=== PATIENT | male | born 1950 | race Caucasian/White ===

== ENCOUNTER → 2017-05-07 15:22 | Outpatient (CLI) | payer MEDICARE, SELFPAY ==
[2017-05-07 16:56] LABS: Allen Test POS; Base Excess 3 mmol/L (-2 to +2); Bicarbonate 28.2 mmol/L (22-26); Blood Gas Specimen Type ART; O2 Delivery Device Nasal Can; PO2 98 mmHG (75-100); SITE R Radial; SO2 98 % (95-99); Time Given 1535; Total Carbon Dioxide 30 mmol/L; pCO2 46.3 mmHg (35-45); pH 7.39 (7.35-7.45)
== END ==
PROVIDERS: Family Provider Internal Medicine; PCP Internal Medicine; Visit Provider Internal Medicine Pulmonary Disease
DX: G47.33 Obstructive sleep apnea (adult) (pediatric) (principal); J44.9 Chronic obstructive pulmonary disease, unspecified; R09.02 Hypoxemia
CPT/HCPCS: 82803

== ENCOUNTER → 2017-09-03 12:13 | Outpatient (CLI) | payer MEDICARE, SELFPAY ==
--- NOTE | 2017-09-03 12:16 | RAD_ITS ---
STUDY: X-RAY - PELVIS AND RIGHT HIP REASON FOR EXAM: Male, 67 years old. Right hip pain TECHNIQUE: Radiological exam, hip, unilateral, with pelvis when performed; 2 or 3 views. COMPARISON: None. FINDINGS: There is a non-specific bowel gas pattern. Vascular calcifications. Seminal vesicle calcifications. Degenerative changes of the sacroiliac joints and symphysis pubis. Normal bilateral superior and inferior pubic rami. Normal pubic symphysis. Normal bilateral ischial tuberosities. Normal visualized femoral head. Normal acetabulum. There is mild articular joint space narrowing of the hip. RAD/Hip 2-3 Views with Pelvis IMPRESSION: Degenerative changes of the sacroiliac joints and symphysis pubis. Mild degenerative changes of the right hip. Electronically Signed: Julieta Newman MD at 20:00 EDT , Service support ,
== END ==
PROVIDERS: Family Provider Internal Medicine; PCP Internal Medicine; Visit Provider Internal Medicine
DX: M25.551 Pain in right hip (principal)
CPT/HCPCS: 73502

== ENCOUNTER → 2017-11-25 12:17 | Outpatient (CLI) | payer MEDICARE, SELFPAY ==
--- NOTE | 2017-11-25 12:22 | RAD_ITS ---
STUDY: X-RAY - LUMBAR SPINE REASON FOR EXAM: Male, 67 years old. LBP, SCIATICA IN BILAT HIPS, NO RECENT INJURY TECHNIQUE: 5 view(s) of the lumbar spine were obtained. COMPARISON: None FINDINGS: Normal lumbar lordosis. There is multilevel endplate spondylosis of the lumbar vertebrae. There is multi-level degenerative disc disease with multi-level disc space narrowing. The soft tissue structures are unremarkable. RAD/Lumbar Spine 2 or 3 Views IMPRESSION: Degenerative changes of the spine. Electronically Signed: Faith Bazan MD at 8:59 EDT Tel , Service support ,
== END ==
PROVIDERS: Family Provider Internal Medicine; PCP Internal Medicine; Visit Provider Anesthesiology Pain Medicine
DX: M54.9 Dorsalgia, unspecified (principal)
CPT/HCPCS: 72100

== ENCOUNTER → 2018-02-17 08:05 | Outpatient (CLI) | payer MEDICARE, SELFPAY ==
--- NOTE | 2018-02-17 08:12 | RAD_ITS ---
STUDY: BARIUM ENEMA. REASON FOR EXAM: Male, 68 years old. Bright red blood in the stool. Abdominal pain. FLUOROSCOPY TIME (if supplied): (1:20) minutes/seconds. 15 images were obtained. TECHNIQUE: A contracts analyst film was obtained. Following this, barium was introduced retrograde through the rectum. The entire colon was opacified. COMPARISON: None. FINDINGS: There is extensive diverticulosis of the colon. There is no evidence of antegrade or retrograde obstruction to the flow of contrast. No mass lesion is seen. RAD/Barium Enema No Air Cont IMPRESSION: Extensive diverticulosis of the colon. Electronically Signed: Meek Perez MD at 15:05 EST Tel [phone], Service support ,
== END ==
PROVIDERS: Family Provider Internal Medicine; PCP Internal Medicine
DX: R19.5 Other fecal abnormalities (principal)
CPT/HCPCS: 74270

== ENCOUNTER 2018-02-23 06:28 | Emergency (ER) | payer MEDICARE, SELFPAY ==
[2018-02-23 06:29] VITALS: BP 122/60; PULSE 69; RESP 17; TEMP 36.4; O2SAT 99; BMI 48.4
--- NOTE | 2018-02-23 07:09 | CT_ITS ---
STUDY: CT BRAIN WITHOUT CONTRAST REASON FOR EXAM: Male, 68 years old. Fall, on Coumadin RADIATION DOSAGE (If Supplied By Facility): CTDIvol = ( 44.99 ) mGy, DLP = ( 796.11 ) mGycm TECHNIQUE: Transaxial CT imaging of the brain was performed without administration of intravenous contrast material. Individualized dose optimization techniques were used for this CT. COMPARISON: 01/06/2017 FINDINGS: Normal soft tissue structures. Normal calvarium. Bilateral lens replacements. Normal size ventricles and extra-axial spaces for the patient's age. There are areas of decreased attenuation within the white matter tracts of the supratentorial brain, consistent with microvascular disease changes. Age-related changes of the basal ganglia. Normal brainstem. Normal cerebellum. There is no intracranial hemorrhage. There are no findings of an acute ischemic infarction. Normal visualized paranasal sinuses. CT/Brain/Head without Contrast IMPRESSION: No fracture or hemorrhage. Electronically Signed: Eitan Woodson MD at 8:04 EST Tel , Service support ,
--- NOTE | 2018-02-23 07:10 | ED.VISSUMM ---
- ER Visit Summary Date of Service: 02/23/18 Chief Complaint: Head injury History of Present Illness: The patient is a 68 M history of end-stage renal disease gets dialysis. History of A. fib and hypertension currently on Coumadin. Today he was at dialysis. He went to take his coat off he lost his balance fell forward striking the top of his head on the floor. He states it is a hard tile floor. He denies any loss of consciousness. He denies any other injuries. Physical Examination: Older male. No acute distress. Vital signs are stable. He is afebrile. He is in no acute rest. H EENT exam is round reactive light. No facial trauma. Patient has a very minor contusion to the top of his anterior scalp. There is no laceration. No significant hematoma. Back of the scalp is nontender. C-spine nontender. Normal range of motion of his neck. Lungs clear to auscultation bilaterally. Heart irregularly irregular consistent with A. fib rate about 70. Chest wall nontender. Abdomen soft nontender. Pelvic girdle intact. Both patient's upper and lower extremities are nontender. With no deformities. 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 Normal dorsi plantar flexion. No shortening or external rotation of the lower extremities. Back is nontender. Neurologically he is awake and alert. Answering questions and following commands. Acting appropriately. GCS of 15. Test Results: Due to the patient being on Coumadin and hitting his head CT scan of the brain was done. CT scan of the brain without contrast shows no acute abnormality. No bleed or skull fracture. Emergency Department Course and Treatment: Multiple repeat exams patient is doing well. Neurologic exam remained normal. Treatment Plan: Patient be discharged back to the dialysis center to be dialyzed today. He was given close head injury instructions. Disposition: Discharge Impression: Acute close head injury Anticoagulated on Coumadin History of A. fib History of end-stage renal disease with dialysis This note was generated with [employer] dictation software. It may contain incorrect words, spelling, and punctuation that were not noted in review of the chart prior to signing ED Disposition - Plan for ED Patient: Disposition: Home or Assisted Living Chief Complaint: Head Injury Instructions: ED Head Injury Closed Referrals: Heraclio Whitehead MD [Primary Care Provider] - As Needed Additional Instructions: Tylenol for any pain. Ice to your head or you headache. Return if very severe headache, vomiting or trouble ambulating.
--- NOTE | 2018-02-23 07:13 | ED.DCSUM_ITS ---
- ER Visit Summary Date of Service: 02/23/18 Chief Complaint: Head injury History of Present Illness: The patient is a 68 M history of end-stage renal disease gets dialysis. History of A. fib and hypertension currently on Coumadin. Today he was at dialysis. He went to take his coat off he lost his balance fell forward striking the top of his head on the floor. He states it is a hard tile floor. He denies any loss of consciousness. He denies any other injuries. Physical Examination: Older male. No acute distress. Vital signs are stable. He is afebrile. He is in no acute rest. H EENT exam is round reactive light. No facial trauma. Patient has a very minor contusion to the top of his anterior scalp. There is no laceration. No significant hematoma. Back of the scalp is nontender. C-spine nontender. Normal range of motion of his neck. Lungs clear to auscultation bilaterally. Heart irregularly irregular consistent with A. fib rate about 70. Chest wall nontender. Abdomen soft nontender. Pelvic girdle intact. Both patient's upper and lower extremities are nontender. With no deformities. Normal manager neonatal strength bilaterally. Normal dorsi plantar flexion. No shortening or external rotation of the lower extremities. Back is nontender. Neurologically he is awake and alert. Answering questions and following commands. Acting appropriately. GCS of 15. Test Results: Due to the patient being on Coumadin and hitting his head CT scan of the brain was done. CT scan of the brain without contrast shows no acute abnormality. No bleed or skull fracture. Emergency Department Course and Treatment: Multiple repeat exams patient is doing well. Neurologic exam remained normal. Treatment Plan: Patient be discharged back to the dialysis center to be dialyzed today. He was given close head injury instructions. Disposition: Discharge Impression: Acute close head injury Anticoagulated on Coumadin History of A. fib History of end-stage renal disease with dialysis This note was generated with [employer] dictation software. It may contain incorrect words, spelling, and punctuation that were not noted in review of the chart prior to signing ED Disposition - Plan for ED Patient: Disposition: Home or Assisted Living Chief Complaint: Head Injury Instructions: ED Head Injury Closed Referrals: Heraclio Whitehead MD [Primary Care Provider] - As Needed Additional Instructions: Tylenol for any pain. Ice to your head or you headache. Return if very severe headache, vomiting or trouble ambulating.
[2018-02-23 08:44] VITALS: BP 124/75; PULSE 72; RESP 15; O2SAT 96
== END 2018-02-23 09:02 | disposition home or self-care (01) ==
PROVIDERS: Emergency Provider Emergency Medicine; Family Provider Internal Medicine; PCP Internal Medicine
DX: S00.03XA Contusion of scalp, initial encounter (principal); R40.2410 Glasgow coma scale score 13-15, unspecified time; W19.XXXA Unspecified fall, initial encounter; Y93.9 Activity, unspecified; Y92.9 Unspecified place or not applicable; Z79.01 Long term (current) use of anticoagulants; I48.91 Unspecified atrial fibrillation; I12.0 Hypertensive chronic kidney disease with stage 5 chronic kidney disease or end stage renal disease; N18.6 End stage renal disease; Z99.2 Dependence on renal dialysis; Z79.899 Other long term (current) drug therapy
CPT/HCPCS: 70450; 99283

== ENCOUNTER → 2018-05-12 09:58 | Outpatient (CLI) | payer MEDICARE, SELFPAY ==
[2018-05-12 09:11] VITALS: BMI 49.8
[2018-05-12 10:23] LABS: Absolute Lymphocyte Count 0.83 X10^3/ul (0.83-4.51); Absolute Neutrophil Count 3.1 X10^3/uL (2.0-7.7); Basophil# 0.03 X10^3/uL; Basophil% 0.6 % (0-1); Eosinophil# 0.32 X10^3/uL; Eosinophils% 6.9 % (0-5); Hematocrit 42.2 % (40-54); Hemoglobin 13.2 g/dl (13.0-16.5); Lymphocyte # 0.83 X10^3/ul (4.0); Lymphocyte % 17.8 % (19-41); Mean Corp Hgb Conc 31.3 g/gl (32-36); Mean Corpuscular Hgb 31.1 pg (27.0-32.0); Mean Corpuscular Volume 99.5 fL (80-94); Mean Platelet Vol. 10.3 fl (6.2-12.0); Monocyte# 0.34 X10^3/uL; Monocyte% 7.3 % (0-10); Neutrophil # 3.12 X10^3/uL (2.7-7.7); Neutrophil % 67.2 % (47-70); Platelet Count 106 K/mm3 (150-450); RBC Distribution Width SD 52.6 fl (35.1-43.9); Red Blood Count 4.24 M/mm3 (4.6-6.2); White Blood Count 4.7 K/mm3 (4.4-11.0)
[2018-05-12 10:25] LABS: POSITIVE COUNT NO; POSITIVE DIFFERENTIAL NO; POSITIVE MORPHOLOGY NO
[2018-05-12 10:49] LABS: Anion Gap 11 (5-15); BUN 49 mg/dL (7-18); BUN/Creat Ratio 8.9 RATIO (10-20); Calcium,Total 8.4 mg/dL (8.5-10.1); Chloride 95 mmol/L (98-107); Creatinine, Serum 5.51 mg/dL (0.70-1.30); EST Glomerular Filtration Rate 11 mL/min (>60); Est Glom Filt Rate - Afr Amer 13 mL/min (>60); Glucose 136 mg/dL (74-106); Sodium Level 136 mmol/L (136-145)
== END ==
PROVIDERS: Physician Assistant; Family Provider Internal Medicine; PCP Internal Medicine; Referring Provider Surgery; Visit Provider Surgery
DX: R79.1 Abnormal coagulation profile (principal); R57.9 Shock, unspecified
CPT/HCPCS: 36415; 80048; 85025

== ENCOUNTER 2018-05-26 08:18 | Day surgery (SDC) | payer MEDICARE, SELFPAY ==
[2018-05-12 09:11] VITALS: BMI 49.8
[2018-05-25 07:36] VITALS: BMI 49.7
[2018-05-26 08:41] LABS: Prothrombin Time Fingerstick 20.5 SEC (11.9-14.4)
--- NOTE | 2018-05-26 10:52 | PCM.OPRPT ---
Problem List (1) Problem with dialysis access Status: Acute Qualifiers: Encounter type: initial encounter Qualified Code(s): T82.898A - Other specified complication of vascular prosthetic devices, implants and grafts, initial encounter Report of Operation Date of Procedure: 05/26/18 Pre-Operative Diagnosis: Increased bleeding left forearm radial to cephalic hemodialysis fistula Post-Operative Diagnosis: Tortuosity with moderate stenosis proximal fistula. Excellent fistula outflow Surgery/Procedure Performed:: Left upper extremity fistulogram with 8 x 40 mm Powerflex angioplasty proximal fistula Description of Surgical Findings:: Timeout and informed consent was obtained. 60-year-old gentleman was taken to special procedures lab placed on the table. His left extremity sterilely prepped and draped. Ultrasound was used to identify the cephalic vein at the antecubital space. 2% lidocaine was instilled under ultrasound guidance. Micropuncture did was inserted and a micropuncture wire inserted a 6 Singaporean short sheath was inserted retrograde with flow. Initially I tried an angled Glidewire and a 4 Singaporean glide cath but I could not get access to the radial artery proximal to the anastomosis secondary to the tortuosity. I then switched to know 3 5 stiff Glidewire and with effort was able to find the pathway to the radial artery proximally anastomosis. I advanced the glide cath. Using Isovue contrast to fistulogram was obtained. This demonstrated significant tortuosity of the proximal portion of the fifth toe with overlapping vessels making determination difficult. His previous fish Elroy who suggested a moderate stenosis in this area. This is the patient's third fistulogram with the 2 previous histograms not having had intervention. The patient is having up to 1 hour of weight time to allow for bleeding to stop. So I placed a 8 x 40 mm Powerflex balloon and balloon angioplasty of the very tortuous proximal portion of the fissure was performed. There was a couple areas of hourglass wasting which then resolved with full insufflation. At the completion shot a study through the balloon and all areas appeared to be widely patent. I completed the fistulogram looking at the upper arm and chest outflow area. Sheath was removed few suture of 4-0 nylon was placed there was a good pulse thrill and bruit at the completion blood loss was minimal no apparent complication The patient has a left forearm radiocephalic arteriovenous hemodialysis fistula. There is tortuosity of the proximal portion of the fistula which seems improved subsequent to the angioplasty. There is good left upper arm cephalic and particularly basilic flow outflow. There is no evidence of any type of hemodynamic stenosis in the proximal forearm antecubital area upper arm or chest outflow area to explain bleeding. Impression Tortuous proximal fistula. Excellent mid fistula and upper arm venous outflow. No evidence of dynamically significant venous outflow stenosis. The patient is on Coumadin. It would be recommended consideration for recreation of buttonholes. I do not have a surgical technique to improve the bleeding situation. Aydin Royal M.D., F.A.C.S. Type of Anesthesia:: Local
== END 2018-05-26 12:00 ==
PROVIDERS: Family Provider Internal Medicine; PCP Internal Medicine; Referring Provider Surgery; Visit Provider Surgery
DX: T82.858A Stenosis of other vascular prosthetic devices, implants and grafts, initial encounter (principal); E11.22 Type 2 diabetes mellitus with diabetic chronic kidney disease; I13.2 Hypertensive heart and chronic kidney disease with heart failure and with stage 5 chronic kidney disease, or end stage renal disease; I50.32 Chronic diastolic (congestive) heart failure; N18.6 End stage renal disease; D63.1 Anemia in chronic kidney disease; Z99.2 Dependence on renal dialysis; I48.0 Paroxysmal atrial fibrillation; N02.8 Recurrent and persistent hematuria with other morphologic changes; J44.9 Chronic obstructive pulmonary disease, unspecified; I27.20 Pulmonary hypertension, unspecified; E78.5 Hyperlipidemia, unspecified; N40.0 Benign prostatic hyperplasia without lower urinary tract symptoms; F32.9 Major depressive disorder, single episode, unspecified; Z79.01 Long term (current) use of anticoagulants; Z79.899 Other long term (current) drug therapy; Z96.653 Presence of artificial knee joint, bilateral
CPT/HCPCS: 36416; 36902; 76937; 85610; Q9967; C1725; C1769

== ENCOUNTER 2018-08-18 08:07 | Emergency (ER) | payer MEDICARE, SELFPAY ==
[2018-08-18 08:07] VITALS: BP 107/66; PULSE 84; RESP 20; TEMP 36.5; O2SAT 94; BMI 49.8; BMI 51.6
--- NOTE | 2018-08-18 08:23 | ED.VISSUMM ---
- ER Visit Summary Date of Service: 08/18/18 Chief Complaint: Bleeding fistula and left lower leg pain/swelling History of Present Illness: The patient is a 68 M with history of end-stage renal disease on dialysis who presents for bleeding fistula. Patient removed his bandage from his fistula in his left forearm approximately 3 hours prior to presentation and it began spurting blood. Pressure dressing was placed at the facility. Patient is denying any dizziness or lightheadedness. He is also complaining of 2 days of lower leg pain, swelling and erythema. He states this is new and he is supposed to get an ultrasound to look for a blood clot today. Patient denies any chills or fever. No other complaints at this time. Physical Examination: Vital signs: afebrile, hemodynamically stable, no hypoxia on room air General: well nourished, well developed, in no distress Skin: warm, dry, no pallor; chronic skin changes in the bilateral lower extremities with skin darkening and thickening, left lower leg is also erythematous, warm, tender with mild pitting edema, extending from the proximal lower leg down to the foot. Circulation intact. HEENT: normocephalic and atraumatic; PERRL, EOMI, moist mucous membranes Cardiovascular: regular rate and rhythm Respiratory: No increased work of breathing, lungs are clear to auscultation bilaterally, no rales, rhonchi or wheezing Abdominal: Abdomen is soft, nontender with normoactive bowel sounds, no guarding or rebound, no masses MSK: Moves all extremities, amputations of the right toes, normal strength Neuro: Awake and alert, oriented ?4. No facial droop, sensation and motor function intact and symmetric Test Results: Abnormal Lab Results 08/18/18 08/18/18 08/18/18 08:30 08:30 08:30 WBC 6.7 RBC 3.80 L Hgb 11.7 L Hct 36.9 L MCV 97.1 H MCH 30.8 MCHC 31.7 L RDW 15.4 H RDW Differential 51.9 H Plt Count 102 L MPV 10.7 Immature Gran % (Auto) 0.100 Neut % (Auto) 68.0 Lymph % (Auto) 14.8 L [place] % (Auto) 10.4 H Eos % (Auto) 6.4 H Baso % (Auto) 0.3 Absolute Neuts (auto) 4.6 Absolute Lymphs (auto) 0.99 Total Counted Not Reportable PT 25.2 H INR 2.3 Sodium 135 L Potassium 4.1 Chloride 98 Carbon Dioxide 32.0 Anion Gap 5 BUN 66 H Creatinine 5.22 H Estim Creat Clear Calc 12.22 Est GFR (MDRD) Af Amer 14 L Est GFR (MDRD) Non-Af 12 L BUN/Creatinine Ratio 12.6 Glucose 127 H Hemoglobin A1c Calcium 8.9 Total Bilirubin 0.60 AST 18 ALT 21 Alkaline Phosphatase 134 H Total Protein 7.0 Albumin 2.8 L Globulin 4.2 Albumin/Globulin Ratio 0.7 L 08/18/18 08:30 WBC RBC Hgb Hct MCV MCH MCHC RDW RDW Differential Plt Count MPV Immature Gran % (Auto) Neut % (Auto) Lymph % (Auto) [place] % (Auto) Eos % (Auto) Baso % (Auto) Absolute Neuts (auto) Absolute Lymphs (auto) Total Counted PT INR Sodium Potassium Chloride Carbon Dioxide Anion Gap BUN Creatinine Estim Creat Clear Calc Est GFR (MDRD) Af Amer Est GFR (MDRD) Non-Af BUN/Creatinine Ratio Glucose Hemoglobin A1c 6.3 Calcium Total Bilirubin AST ALT Alkaline Phosphatase Total Protein Albumin Globulin Albumin/Globulin Ratio Medications Given Discontinued Medications Cephalexin (Keflex) 500 mg PO X1 ONE Stop: 08/18/18 09:31 Last Admin: 08/18/18 10:25 Dose: 500 mg Emergency Department Course and Treatment: senior living was contacted and they have an ultrasound scheduled this afternoon for the patient's left lower extremity. INR was checked since he is on Coumadin. If INR is therapeutic, it would be less likely to be a DVT. Ultrasound will not be performed in the emergency department, as it is already scheduled for this afternoon. Because blood is being drawn, CBC, CMP and hemoglobin A1c were also performed, as these have been ordered by his primary care doctor. INR was therapeutic. Patient had no leukocytosis. Patient was started on Keflex for concern for cellulitis of the left lower extremity. The bandaging was taken off of patient's fistula site and he did have spurting hemorrhage from a punctate site. Gelfoam was applied over the site of hemorrhage and a dressing was then applied. Patient was observed for 2 hours and the site of hemorrhage was reevaluated. There was no bleeding through the single layer of gauze covering the Gelfoam. Good hemostasis was achieved. Wrap was reapplied and patient was instructed not to remove it this time until he goes for his next dialysis treatment. Patient's fistula hemorrhage was resolved at this time. Patient was discharged back to his nursing facility. Again he will get his ultrasound of the left lower extremity is afternoon at the facility. Treatment Plan: [] Disposition: [] Impression: Cellulitis of left lower extremity, bleeding of a dialysis fistula, hemorrhage control This note was generated with [employer] dictation software. It may contain incorrect words, spelling, and punctuation that were not noted in review of the chart prior to signing ED Disposition - Plan for ED Patient: Disposition: Home or Assisted Living Instructions: ED Infec Skin Cellulitis, ED Shunt Dialysis Fistula Bleeding Prescriptions: Cephalexin [Keflex] 500 mg PO Q6 #40 cap Referrals: Heraclio Whitehead MD [Primary Care Provider] - 1 Day for another exam Additional Instructions: Your INR today was 2.3. The labs that your doctor had ordered were all drawn while you were in the emergency department. You have an ultrasound scheduled today to check your left leg for a blood clot. You have been started on Keflex for treatment of possible cellulitis. You were given a first dose in the emergency department. The bleeding from your fistula has been controlled with placement of Gelfoam and a dressing. Please do not remove the dressing until your dialysis appointment tomorrow. If you have any worsening of your condition or any new concerning symptoms, please return immediately to the emergency department for another evaluation.
[2018-08-18 08:37] LABS: Absolute Lymphocyte Count 0.99 X10^3/ul (0.83-4.51); Absolute Neutrophil Count 4.6 X10^3/uL (2.0-7.7); Basophil# 0.02 X10^3/uL; Basophil% 0.3 % (0-1); Eosinophil# 0.43 X10^3/uL; Eosinophils% 6.4 % (0-5); Hematocrit 36.9 % (40-54); Hemoglobin 11.7 g/dl (13.0-16.5); Lymphocyte # 0.99 X10^3/ul (4.0); Lymphocyte % 14.8 % (19-41); Mean Corp Hgb Conc 31.7 g/gl (32-36); Mean Corpuscular Hgb 30.8 pg (27.0-32.0); Mean Corpuscular Volume 97.1 fL (80-94); Mean Platelet Vol. 10.7 fl (6.2-12.0); Monocyte% 10.4 % (0-10); Neutrophil # 4.56 X10^3/uL (2.7-7.7); POSITIVE COUNT NO; POSITIVE DIFFERENTIAL NO; POSITIVE MORPHOLOGY NO; Platelet Count 102 K/mm3 (150-450); RBC Distribution Width CV 15.4 % (11.6-14.6); RBC Distribution Width SD 51.9 fl (35.1-43.9); White Blood Count 6.7 K/mm3 (4.4-11.0)
[2018-08-18 08:48] LABS: International Normalized Ratio 2.3; Prothrombin Time (Protime)PT. 25.2 SECONDS (11.7-14.9)
[2018-08-18 08:58] LABS: ALB/GLOB Ratio 0.7 RATIO (0.9-2.4); AST(SGOT) 18 U/L (15-37); Alanine Aminotransfer ALT/SGPT 21 U/L (16-61); Albumin, Serum 2.8 g/dL (3.2-5.0); Alkaline Phosphatase 134 U/L (45-117); Anion Gap 5 (5-15); BUN 66 mg/dL (7-18); BUN/Creat Ratio 12.6 RATIO (10-20); Calcium,Total 8.9 mg/dL (8.5-10.1); Chloride 98 mmol/L (98-107); Creatinine, Serum 5.22 mg/dL (0.70-1.30); EST Glomerular Filtration Rate 12 mL/min (>60); Est Glom Filt Rate - Afr Amer 14 mL/min (>60); Estimated Creatinine Clearance 12.22 ml/min; Globulin 4.2 g/dL (2.2-4.2); Glucose 127 mg/dL (74-106); Potassium 4.1 mmol/L (3.5-5.1); Sodium Level 135 mmol/L (136-145)
[2018-08-18 09:01] LABS: Hemoglobin A1c 6.3 % (4.2-6.3)
[2018-08-18] MEDS: Cephalexin 250 MG Capsule 500 MG PO (10:25)
--- NOTE | 2018-08-18 11:54 | ED.RN ---
pt had a dressing placed with gelfoam and cling. applied. wound rechecked and is not bleeding. pt given a meal and is waiting on transport to get him back to the skilled nursing.
[2018-08-18 12:55] VITALS: BP 102/74; PULSE 78; RESP 16; O2SAT 99
== END 2018-08-18 12:56 | disposition home or self-care (01) ==
PROVIDERS: Emergency Provider Emergency Medicine; Family Provider Internal Medicine; PCP Internal Medicine
DX: L03.116 Cellulitis of left lower limb (principal); T82.838A Hemorrhage due to vascular prosthetic devices, implants and grafts, initial encounter; N18.6 End stage renal disease; E66.9 Obesity, unspecified; Z79.01 Long term (current) use of anticoagulants; Z79.899 Other long term (current) drug therapy
CPT/HCPCS: 36415; 80053; 83036; 85025; 85610; 99284

== ENCOUNTER 2018-08-31 06:55 | Emergency (ER) | payer MEDICARE, SELFPAY ==
[2018-08-31 06:55] VITALS: BMI 51.6
[2018-08-31 06:56] VITALS: BP 155/60; PULSE 78; RESP 16; TEMP 36; O2SAT 94; BMI 54.9
--- NOTE | 2018-08-31 07:38 | ED.DCSUM_ITS ---
- ER Visit Summary Date of Service: 08/31/18 Chief Complaint: Bleeding fistula History of Present Illness: The patient is a 68 M who went to dialysis this morning. They pulled the dressing off of his forearm to start his line for dialysis and his arm started bleeding. He states he had trouble with bleeding last week but got it controlled. Physical Examination: Vital signs unremarkable. Patient lying in bed no acute distress. Left upper extremity examination reveals a tourniquet in place in the proximal left forearm with bloodsoaked trauma dressings over the forearm. There is still some active bleeding noted. Test Results: CBC reveals a hemoglobin 11.9 and platelet count of 142,000. Chemistry studies reveal a sodium of 129 and a chloride 93. His BUN is 98 and creatinine is 7.00. His INR is 1.9. Emergency Department Course and Treatment: Patient initially had a second tourniquet placed in the left upper arm with direct pressure held over the left fistula site. Bleeding was still difficult to control at this point. Dr. Royal, the surgeon who placed the patient's fistula is out of town this week and unavailable. I do not have any other vascular coverage here. I spoke with Dr. Lawrence at [facility] and patient has been accepted in transfer. He did advise that we needed to try to get the tourniquets removed as this would increase venous pressure and make his fistula bleeding worse. Distalmost tourniquet was removed and direct pressure was held over the wound. Upper extremity tourniquet was loosened but increased bleeding was noted and it was tightened again. Pressure dressing was being applied as [facility] crew arrived to transport the patient. I did discuss with them her desire to try to get tourniquets off if at all possible. Patient's vital signs remained stable throughout his stay. Treatment Plan: [] Disposition: Transfer Impression: Bleeding left forearm fistula This note was generated with [employer] dictation software. It may contain incorrect words, spelling, and punctuation that were not noted in review of the chart prior to signing ED Disposition - Plan for ED Patient: Disposition: [facility] Referrals: Heraclio Whitehead MD [Primary Care Provider] -
[2018-08-31 07:45] LABS: Absolute Lymphocyte Count 0.93 X10^3/ul (0.83-4.51); Absolute Neutrophil Count 4.6 X10^3/uL (2.0-7.7); Basophil# 0.02 X10^3/uL; Basophil% 0.3 % (0-1); Eosinophil# 0.35 X10^3/uL; Eosinophils% 5.7 % (0-5); Hemoglobin 11.9 g/dl (13.0-16.5); Lymphocyte # 0.93 X10^3/ul (4.0); Lymphocyte % 15.3 % (19-41); Mean Corp Hgb Conc 32.2 g/gl (32-36); Mean Corpuscular Volume 96.4 fL (80-94); Mean Platelet Vol. 11.1 fl (6.2-12.0); Monocyte# 0.19 X10^3/uL; Monocyte% 3.1 % (0-10); Neutrophil # 4.58 X10^3/uL (2.7-7.7); Neutrophil % 75.3 % (47-70); POSITIVE COUNT NO; POSITIVE DIFFERENTIAL NO; POSITIVE MORPHOLOGY NO; Platelet Count 142 K/mm3 (150-450); RBC Distribution Width CV 15.8 % (11.6-14.6); RBC Distribution Width SD 53.8 fl (35.1-43.9); Red Blood Count 3.84 M/mm3 (4.6-6.2); White Blood Count 6.1 K/mm3 (4.4-11.0)
[2018-08-31 07:53] LABS: International Normalized Ratio 1.9; Prothrombin Time (Protime)PT. 21.9 SECONDS (11.7-14.9)
[2018-08-31 07:54] LABS: Partial Thromboplast Time 40.5 Seconds (24.1-36.2)
[2018-08-31 07:55] LABS: Anion Gap 9 (5-15); BUN 98 mg/dL (7-18); Calcium,Total 9.1 mg/dL (8.5-10.1); Chloride 93 mmol/L (98-107); EST Glomerular Filtration Rate 8 mL/min (>60); Est Glom Filt Rate - Afr Amer 10 mL/min (>60); Estimated Creatinine Clearance 9.11 ml/min; Glucose 212 mg/dL (74-106); Potassium 4.8 mmol/L (3.5-5.1); Sodium Level 129 mmol/L (136-145)
[2018-08-31 08:02] VITALS: BP 102/64; PULSE 75; RESP 16; O2SAT 98
== END 2018-08-31 07:55 | disposition short-term general hospital (02) ==
PROVIDERS: Emergency Provider Emergency Medicine; Family Provider Internal Medicine; PCP Internal Medicine
DX: T82.838A Hemorrhage due to vascular prosthetic devices, implants and grafts, initial encounter (principal); J44.9 Chronic obstructive pulmonary disease, unspecified; E11.9 Type 2 diabetes mellitus without complications; I10 Essential (primary) hypertension; I48.0 Paroxysmal atrial fibrillation; Z79.01 Long term (current) use of anticoagulants; Z79.899 Other long term (current) drug therapy
CPT/HCPCS: 80048; 85025; 85610; 85730; 99285

== ENCOUNTER 2018-09-13 16:33 | Inpatient (IN) | payer MEDICARE, SELFPAY ==
[2018-09-13] VITALS (12 sets, daily range): BP systolic 75–110; BP diastolic 30–63; PULSE 71–78; RESP 14–21; TEMP 36.4; O2SAT 95–100; BMI 50.0; BMI 48.9
--- NOTE | 2018-09-13 17:21 | CT_ITS ---
STUDY: CT BRAIN WITHOUT CONTRAST REASON FOR EXAM: Male, 68 years old. Episode of blurry vision and confusion RADIATION DOSAGE (If Supplied By Facility): CTDIvol = ( 44.99 ) mGy, DLP = ( 846.73 ) mGycm TECHNIQUE: Transaxial CT imaging of the brain was performed without administration of intravenous contrast material. Individualized dose optimization techniques were used for this CT. COMPARISON: February 23, 2018. FINDINGS: Normal soft tissue structures. Normal calvarium. Calcification of the cavernous carotid and vertebral arteries Mild atrophy and periventricular white matter ischemic changes.. Normal basal ganglia and thalami. Normal brainstem. Normal cerebellum. Empty sella deformity likely of no significance There is no intracranial hemorrhage. There are no findings of an acute ischemic infarction. Postsurgical changes of the orbits. Normal visualized paranasal sinuses. CT/Brain/Head without Contrast IMPRESSION: Mild atrophy and periventricular white matter ischemic changes. No evidence for acute bleed. If concern for acute infarct MRI recommended. Electronically Signed: Freddy Decker MD at 18:54 EDT , Service support ,
--- NOTE | 2018-09-13 17:21 | EKG12_ITS ---
Test Reason : MENTAL STATUS CHANGE Blood Pressure : / mmHG Vent. Rate : 076 BPM Atrial Rate : 076 BPM P-R Int : 216 ms QRS Dur : 112 ms QT Int : 430 ms P-R-T Axes : 037 006 059 degrees QTc Int : 483 ms Sinus rhythm with 1st degree A-V block with frequent Premature ventricular complexes Low voltage QRS Prolonged QT Abnormal ECG Confirmed by LESLIE CORTES, ELLYN ([id number]), photographic editor TOSHIA CAPPS ([id number]) on 09/17/2018 11:48:33 AM Referred By: LUKAS Confirmed By:ELLYN NELSON MD
--- NOTE | 2018-09-13 17:25 | RAD_ITS ---
STUDY: X-RAY CHEST REASON FOR EXAM: Male, 68 years old. Confusion TECHNIQUE: AP portable COMPARISON: January 06, 2017. FINDINGS: Diminished inspiratory effort and mild bibasilar atelectasis. Small right pleural effusion. Heart is enlarged.. Normal mediastinum and tyron. Normal visualized pulmonary arteries. Normal visualized aortic arch and descending thoracic aorta. Dialysis catheter noted on the right with tip in distal superior vena cava Dorsal spine demonstrates spondylosis. Normal visualized ribs, clavicles, and shoulders. There is no demonstrated abnormality of the visualized soft tissue structures of the upper abdomen. RAD/Chest 1 View (Portable) IMPRESSION: Mild bibasilar atelectasis and small right effusion Electronically Signed: Freddy Decker MD at 17:56 EDT , Service support ,
[2018-09-13 17:39] LABS: Absolute Neutrophil Count 2.8 X10^3/uL (2.0-7.7); Basophil# 0.04 X10^3/uL; Basophil% 0.8 % (0-1); Eosinophil# 0.56 X10^3/uL; Eosinophils% 11.3 % (0-5); Hematocrit 31.4 % (40-54); Hemoglobin 9.7 g/dl (13.0-16.5); Lymphocyte % 24.3 % (19-41); Mean Corp Hgb Conc 30.9 g/gl (32-36); Mean Corpuscular Hgb 30.7 pg (27.0-32.0); Mean Corpuscular Volume 99.4 fL (80-94); Mean Platelet Vol. 10.2 fl (6.2-12.0); Monocyte# 0.34 X10^3/uL; Monocyte% 6.9 % (0-10); Neutrophil # 2.79 X10^3/uL (2.7-7.7); Neutrophil % 56.5 % (47-70); Platelet Count 201 K/mm3 (150-450); RBC Distribution Width CV 15.5 % (11.6-14.6); RBC Distribution Width SD 55.3 fl (35.1-43.9); Red Blood Count 3.16 M/mm3 (4.6-6.2); White Blood Count 4.9 K/mm3 (4.4-11.0)
[2018-09-13 17:41] LABS: POSITIVE COUNT NO; POSITIVE DIFFERENTIAL NO; POSITIVE MORPHOLOGY NO
[2018-09-13 18:26] LABS: ALB/GLOB Ratio 0.6 RATIO (0.9-2.4); AST(SGOT) 23 U/L (15-37); Alanine Aminotransfer ALT/SGPT 11 U/L (16-61); Albumin, Serum 2.9 g/dL (3.2-5.0); Alkaline Phosphatase 124 U/L (45-117); Anion Gap 6 (5-15); BUN 20 mg/dL (7-18); BUN/Creat Ratio 3.1 RATIO (10-20); Calcium,Total 9.4 mg/dL (8.5-10.1); Chloride 98 mmol/L (98-107); Creatinine, Serum 6.42 mg/dL (0.70-1.30); EST Glomerular Filtration Rate 9 mL/min (>60); Est Glom Filt Rate - Afr Amer 11 mL/min (>60); Estimated Creatinine Clearance 9.94 ml/min; Globulin 4.7 g/dL (2.2-4.2); Glucose 96 mg/dL (74-106); Potassium 3.5 mmol/L (3.5-5.1); Protein, Total 7.6 g/dL (6.4-8.2); Sodium Level 134 mmol/L (136-145)
[2018-09-13] MEDS: 0.9% Normal Saline 1,000 ML 150 ML IV (18:44)
[2018-09-13 18:52] LABS: International Normalized Ratio 1.7; Prothrombin Time (Protime)PT. 19.6 SECONDS (11.7-14.9)
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
--- NOTE | 2018-09-13 20:14 | ED.RN ---
called report to Wilian in ICU
--- NOTE | 2018-09-13 20:16 | ED.RN ---
spoke with nurse at [facility] to inform of admission to ICU
--- NOTE | 2018-09-13 20:37 | ECHOD_ITS ---
Reason For Study: hypotension Procedure This was a 2D Doppler, Color Flow transthoracic echocardiogram. The study was technically difficult. Technically difficult study due to patient body habitus. Patient was supine and leaning slightly to the right for testing. Patient would not lift chin for SSN Pedoff or 2D. Unable to use definity due to increased pressures. Exam performed portable in ICU/CCU. Left Ventricle Normal LV size. Left ventricular systolic function is normal. The estimated ejection fraction is 65 %. Stage 2 diastolic dysfunction. No regional wall motion abnormalities noted. Right Ventricle Moderately dilated right ventricle. Mild global right ventricular systolic dysfunction. Atria The left atrium is moderately enlarged. The right atrium is mildly enlarged. Mitral Valve There is mild mitral annular calcification. Mild (1+) eccentric mitral valve insufficiency. Tricuspid Valve Normal tricuspid valve. Mild (1+) tricuspid valve insufficiency. Pulmonary artery systolic pressure is 54 mmHg. Aortic Valve Trisinus/trileaflet aortic valve. Peak aortic valve gradient 24 mmHg. Mean aortic valve gradient 13 mmHg. Mild aortic stenosis. Calculated aortic valve area (continuity equation) is 1.5 cm2. Pulmonic Valve Normal pulmonic valve. Great Vessels Normal aortic root. The pulmonary artery is normal size. Normal inferior vena cava. Pericardium/Pleural No pericardial effusion. MMode/2D Measurements & Calculations LVIDd: 4.6 cm IVSd: 1.1 cm LVOT diam: 2.2 cm LVIDs: 3.3 cm LVPWd: 1.1 cm LVOT area: 3.7 cm2 RVDd: 4.8 cm FS: 28.5 % Ao root diam: 3.0 cm LAV(MOD-bp): 85.3 ml LA A4 area: 28.2 cm2 LAV(MOD-bp) Indexed: 35.5 ml/m2 LAV(MOD-sp2): 81.0 ml LAV(MOD-sp4): 88.0 ml LA dimension(2D): 4.9 cm RA A4 area: 21.2 cm2 Time Measurements MV dec time: 0.19 sec Doppler Measurements & Calculations MV E max juanito: 106.6 cm/sec Lat Peak E' Juanito: 13.6 cm/sec Med Peak E' Juanito: 4.8 cm/sec MV A max juanito: 87.0 cm/sec E/E' lat: 7.8 E/E' med: 22.3 MV E/A: 1.2 Ao V2 max: 243.3 cm/sec LV V1 max: 100.4 cm/sec SV(LVOT): 87.7 ml Ao max P.7 mmHg LV V1 max P.0 mmHg Ao V2 mean: 174.1 cm/sec LV V1 mean P.2 mmHg Ao mean P.2 mmHg LV V1 mean: 70.3 cm/sec Ao V2 VTI: 58.9 cm LV V1 VTI: 23.6 cm AVELINO(I,D): 1.5 cm2 AVELINO(V,D): 1.5 cm2 TR max juanito: 355.7 cm/sec TR max P.6 mmHg Interpretation Summary Normal LV size. Left ventricular systolic function is normal. The estimated ejection fraction is 65 %. Stage 2 diastolic dysfunction. Mild (1+) eccentric mitral valve insufficiency. Pulmonary artery systolic pressure is 54 mmHg. Mild aortic stenosis. Calculated aortic valve area (continuity equation) is 1.5 cm2. Compared to prior study, there is no significant change. Ordering Physician: Stew Aldrich Referring Physician: Heraclio Whitehead Performed By: Emma Avalos, CRISTIANO, RVT
[2018-09-13] MEDS: Nystatin Powder 15gm Bottle 1 APPLIC TOPICAL (21:39)
[2018-09-13] MEDS: Acetaminophen 325 MG Tablet 650 MG PO (21:39)
[2018-09-13] MEDS: Pramipexole Di-HCl 0.5 MG Tablet PO (21:39)
[2018-09-13] MEDS: Midodrine HCl 5 MG Tablet 10 MG PO (21:40)
[2018-09-13 21:51] LABS: Lactic Acid 0.9 mmol/L (0.4-2.0)
[2018-09-13] MEDS: Cholestyramine/Sucrose 4 GM/PACKET PO (22:50)
[2018-09-14] VITALS (22 sets, daily range): BP systolic 82–129; BP diastolic 21–76; PULSE 61–76; RESP 12–21; TEMP 36.2–36.8; O2SAT 94–100
[2018-09-14 04:08] LABS: Hematocrit 28.3 % (40-54); Hemoglobin 8.7 g/dl (13.0-16.5); Mean Corp Hgb Conc 30.7 g/gl (32-36); Mean Corpuscular Hgb 30.7 pg (27.0-32.0); Mean Platelet Vol. 9.5 fl (6.2-12.0); Platelet Count 174 K/mm3 (150-450); RBC Distribution Width CV 15.3 % (11.6-14.6); RBC Distribution Width SD 54.8 fl (35.1-43.9); Red Blood Count 2.83 M/mm3 (4.6-6.2); White Blood Count 4.7 K/mm3 (4.4-11.0)
[2018-09-14 04:12] LABS: Scan Indicated on CBC? Y/N NO
[2018-09-14 04:21] LABS: BUN 23 mg/dL (7-18); BUN/Creat Ratio 3.3 RATIO (10-20); Calcium,Total 8.8 mg/dL (8.5-10.1); Creatinine, Serum 6.88 mg/dL (0.70-1.30); EST Glomerular Filtration Rate 9 mL/min (>60); Est Glom Filt Rate - Afr Amer 10 mL/min (>60); Estimated Creatinine Clearance 9.27 ml/min; Glucose 94 mg/dL (74-106)
[2018-09-14 04:22] LABS: Anion Gap 8 (5-15); Chloride 100 mmol/L (98-107); Potassium 3.4 mmol/L (3.5-5.1); Sodium Level 137 mmol/L (136-145)
[2018-09-14 04:30] LABS: Prothrombin Time (Protime)PT. 22.3 SECONDS (11.7-14.9)
[2018-09-14] MEDS: Budesonide Respules 0.5 MG/2 ML AMPUL.NEB. INHALATION ×2 (06:52→19:30)
[2018-09-14] MEDS: Ipratropium/Albuterol Sulfate 3 ML AMPUL.NEB INHALATION ×2 (06:52→19:30)
--- NOTE | 2018-09-14 08:01 | CON.PCM_ITS ---
Problem List (1) Acute encephalopathy Status: Acute (2) Diarrhea Status: Resolved Qualifiers: Diarrhea type: presumed infectious Qualified Code(s): A09 - Infectious gastroenteritis and colitis, unspecified (3) ESRD (end stage renal disease) on dialysis Status: Chronic (4) Benign hypertension Status: Chronic (5) BPH (benign prostatic hyperplasia) Status: Chronic Qualifiers: Lower urinary tract symptom presence: symptoms present Lower urinary tract symptom detail: urinary hesitancy Qualified Code(s): N40.1 - Benign prostatic hyperplasia with lower urinary tract symptoms; R39.11 - Hesitancy of micturition; R39.11 - Hesitancy of micturition (6) Depression Status: Chronic (7) Hyperlipidemia Status: Chronic Qualifiers: Hyperlipidemia type: pure hypercholesterolemia Qualified Code(s): E78.00 - Pure hypercholesterolemia, unspecified; E78.0 - Pure hypercholesterolemia (8) IgA nephropathy Status: Chronic (9) Chronic gout Status: Chronic (10) Diabetes mellitus, type 2 Status: Chronic Qualifiers: 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: with intermediate use Diabetes mellitus complication status: with kidney complications Diabetes mellitus complication detail: with chronic kidney disease Chronic kidney disease stage: on chronic dialysis Qualified Code(s): E11.22 - Type 2 diabetes mellitus with diabetic chronic kidney disease; N18.6 - End stage renal disease; Z99.2 - Dependence on renal dialysis; Z99.2 - Dependence on renal dialysis; Z99.2 - Dependence on renal dialysis; N18.6 - End stage renal disease; N18.6 - End stage renal disease; N18.6 - End stage renal disease; Z79.4 - [facility] (current) use of insulin; Z79.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; Z79.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; Z79.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; Z99.2 - Dependence on renal dialysis Comment: DIET CONTROLLED (11) Fatty liver Status: Chronic (12) KATHY on CPAP Status: Chronic 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 (13) COPD (chronic obstructive pulmonary disease) Status: Chronic Qualifiers: COPD type: unspecified COPD Qualified Code(s): J44.9 - Chronic obstructive pulmonary disease, unspecified Comment: With chronic respiratory failure On 3 L nasal cannula (14) Left kidney mass Status: Chronic (15) Pulmonary hypertension Status: Chronic (16) Paroxysmal atrial fibrillation Status: Chronic (17) Anemia of chronic renal failure Status: Chronic Qualifiers: Chronic kidney disease stage: stage 5 Qualified Code(s): N18.5 - Chronic kidney disease, stage 5; D63.1 - Anemia in chronic kidney disease; D63.1 - Anemia in chronic kidney disease (18) Diabetes mellitus with skin complications Status: Inactive Qualifiers: Diabetes mellitus type: type 2 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: with intermediate use Diabetes mellitus complication detail: with other skin complication Qualified Code(s): E11.628 - Type 2 diabetes mellitus with other skin complications; Z79.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; Z79.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; Z79.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; Z79.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 Comment: E11.628 complex necrotic diabetic ulcer abscess left long fingertip (19) Unspecified severe protein-calorie malnutrition Status: Inactive Comment: E43 Reason for Consult Date of Consultation: 09/14/18 Reason for Consultation: Hypotension History of Present Illness: The patient is a 68 year old M, with past medical history listed below, who presented [facility] on 09/13/2018 secondary to a change of mental status at approximately 11 AM. Patient reportedly ran his power wheelchair into a wall and staff noted that he was disoriented and confused. Patient had reported generalized weakness and a sensation of being drunk. Patient denied any chest pain or shortness of breath. Patient did have a history of diabetes, but reportedly glucose was at within normal limits. Patient had had a cough productive of green sputum intermittently, but this was not thought to be infectious. Patient did not have any clinical signs of blood loss. Patient reportedly had tolerated his last hemodialysis without difficulty. On presentation to the ER, patient was noted to be in a first-degree AV block with a rate of 76. CBC and chemistries were unremarkable. Patient was given 500 cc bolus of IV fluids secondary to systolic blood pressures in the 80s. Patient was admitted to the intensive care unit for further evaluation. In the intensive care unit, patient was not initiated on any antibiotics. Patient does take management at baseline. Patient's blood pressure was marginal overnight and he was given a 250 cc bolus of fluids. Patient's blood pressures continued to be marginal. Patient was given an additional dose of monitoring overnight. Patient has been stable on baseline 2 L nasal cannula and has not reported any concerns from a respiratory standpoint. Patient reports that he feels back to his baseline at this time. Patient does report some knee tenderness, which he states is normal for him and some increased shoulder stiffness. Patient denies any lower extremity pain, fever, chills, nausea or vomiting. Patient reports that he is tolerated his hemodialysis recently without difficulty. This is not been confirmed with nephrology. Patient does have a history of multiple infections in the past. Patient does not feel that this is consistent with those previous problems. Patient is scheduled to have hemodialysis routinely on Friday, Friday and Friday. Patient is on Coumadin therapy at baseline. Review of systems otherwise negative x10 systems. Past Medical History Past Medical History (Chronic Problems): Chronic Problems (Last Reviewed 09/13/18 @ 20:17 by Stew Aldrich MD) ESRD (end stage renal disease) on dialysis (Chronic) C. difficile diarrhea (Chronic) Benign hypertension (Chronic) BPH (benign prostatic hyperplasia) (Chronic) Depression (Chronic) Hyperlipidemia (Chronic) IgA nephropathy (Chronic) Chronic gout (Chronic) Diabetes mellitus, type 2 (Chronic) DIET CONTROLLED Diastolic Dysfunction EF 60% (Chronic) Fatty liver (Chronic) KATHY on CPAP (Chronic) 16 CM WATER COPD (chronic obstructive pulmonary disease) (Chronic) With chronic respiratory failure On 3 L nasal cannula Left kidney mass (Chronic) Super obesity (Chronic) bmi 64 Chronic low back pain (Chronic) Pulmonary hypertension (Chronic) Paroxysmal atrial fibrillation (Chronic) Anemia of chronic renal failure (Chronic) Hyperkalemia (Chronic) Falls frequently (Chronic) Medical History: Medical History (Last Reviewed 09/13/18 @ 20:17 by Stew Aldrich MD) ESRD (end stage renal disease) on dialysis (Chronic) N18.6, Z99.2 C. difficile diarrhea (Chronic) A04.7 Hemorrhage of arteriovenous fistula (Resolved) T82.838A Benign hypertension (Chronic) I10 BPH (benign prostatic hyperplasia) (Chronic) Depression (Chronic) F32.9 Hyperlipidemia (Chronic) E78.5 IgA nephropathy (Chronic) N02.8 Chronic gout (Chronic) [id number] Diabetes mellitus, type 2 (Chronic) E11.9 DIET CONTROLLED Diastolic Dysfunction EF 60% (Chronic) COPD (chronic obstructive pulmonary disease) (Chronic) J44.9 With chronic respiratory failure On 3 L nasal cannula Left kidney mass (Chronic) N28.89 Chronic low back pain (Chronic) M54.5, G89.29 Pulmonary hypertension (Chronic) I27.2 Paroxysmal atrial fibrillation (Chronic) I48.0 Vertebral osteomyelitis, acute (Inactive) M46.20 12/22/14 24 hours no growth. 12/21/14 1/2 cultures w/ staph aureus. Suspected source vertebral osteomyelitis, unable to confirm as unable to obtain GOLD standard MRI secondary to habitus. Rhabdomyolysis (Inactive) M62.82 Unclear exact etiology, resolved. Osteomyelitis (Inactive) M86.9 distal phalanx of the middle finger on the left hand Anemia of chronic renal failure (Chronic) N18.9, D63.1 Atrial fibrillation I48.91 Allergies mirtazapine [From Remeron] Allergy (Verified 09/13/18 16:40) forgetful, doesn't remember anything Sulfa (Sulfonamide Antibiotics) Allergy (Verified 09/13/18 16:40) bleeding from kidneys aspirin Adverse Reaction (Verified 09/13/18 16:40) Nausea oxycodone HCl [From Percodan] Adverse Reaction (Verified 09/13/18 16:40) Nausea oxycodone terephthalate [From Percodan] Adverse Reaction (Verified 09/13/18 16:40) Nausea Home Medications: Ambulatory Orders Medication Instructions Recorded Nystatin Powder [Mycostatin Powder] 1 applic TOPICAL BID bottle 10/19/16 Calcium Acetate [Phoslo Gel Cap] 1,334 mg PO TIDCM 11/08/16 Cholestyramine (with Sugar) 4 gm PO BID 01/06/17 [Cholestyramine Packet] Warfarin [Coumadin] 2 mg PO SUMOWEFR 01/06/17 Warfarin [Coumadin] 3 mg PO TUTHSA 01/06/17 ferrous sulfate 325 mg (65 mg 325 mg PO BID tab 05/12/18 iron) tablet,delayed release umeclidinium 62.5 mcg/actuation 1 inh INHALATION DAILY 05/12/18 blister powder for inhalation Acetaminophen [Tylenol Tablet] 650 mg PO Q4H PRN PRN 08/18/18 Acetaminophen [Tylenol] 650 mg RECTAL Q4H PRN PRN 08/18/18 Albuterol Aerosols [Ventolin 2.5 mg INHALATION Q4H PRN PRN 08/18/18 Aerosols] B Complex W-C No.20/Folic Acid 1 mg PO DAILY 08/18/18 [Virt-Caps Softgel] Bisacodyl [Laxative Suppository] 10 mg RC DAILY PRN PRN 08/18/18 Dextrose [Glucose Gel] 38 gm PO PRN PRN 08/18/18 Docusate Sodium [Colace] 100 mg PO DAILY 08/18/18 Escitalopram Oxalate [Lexapro] 10 mg PO DAILY 08/18/18 Fluticasone/Vilanterol [Breo 1 each IH DAILY 08/18/18 Ellipta Inhaler] Gabapentin [Neurontin] 300 mg PO DAILY 08/18/18 Glucagon,Human Recombinant 1 mg IJ PRN PRN 08/18/18 [Glucagon Emergency Kit] Guaifenesin [Robitussin] 10 ml PO Q4H PRN PRN 08/18/18 Loperamide HCl [Imodium A-D] 2 mg PO Q6H PRN PRN 08/18/18 Mag Hydrox/Aluminum Hyd/Simeth 30 ml PO Q4H PRN PRN 08/18/18 [Antacid Liquid] Magnesium Hydroxide [Milk Of 30 ml PO DAILY PRN PRN 08/18/18 Magnesia] Metoprolol Tartrate [Lopressor 12.5 mg PO SUTUTHSA 08/18/18 (beta alex)] Midodrine HCl 10 mg PO MOWEFR 08/18/18 Na Phos,M-B/Na Phos,Di-Ba [Fleet 1 bottle RECTAL DAILY PRN PRN 08/18/18 Enema] Ondansetron HCl [Zofran] 4 mg PO Q6H PRN PRN 08/18/18 Pantoprazole Sodium [Protonix] 40 mg PO DAILY 08/18/18 Pramipexole Di-HCl [Mirapex] 0.5 mg PO QHS 08/18/18 Surgical History: Surgical History (Last Reviewed 09/13/18 @ 20:12 by Stew Aldrich MD) History of arteriovenostomy for renal dialysis Z99.2 History of cholecystectomy Z90.49 History of colonoscopy Z98.890 History of total bilateral knee replacement Z96.653 Status post biopsy of kidney Z98.890 Surgical History: colectomy, total knee arthroplasty - Bilateral, - - LLA Fistula Psychiatric History: No pertinent psych hx Lives: Prison Smoking Status: Never smoker Alcohol: Occasional - *Family History Maternal History Items: COPD, Diabetes, Heart Disease, Hypertension - He, Pulmonary Disease, Renal Disease Paternal History Items: No pertinent history Review of Systems Comment: See HPI Patient Problems: Active and Suspected Problems (Last Reviewed 09/13/18 @ 20:17 by Stew Aldrich MD) Acute encephalopathy (Acute) Hypotension (Acute) Objective: Chest x-ray showed mild bibasilar atelectasis with a small right effusion. This does not appear to be significantly different from previous examinations. - Physical Exam General: Alert, Oriented x3, Cooperative, No apparent distress, - - Appears older than stated age. Morbidly obese. HEENT: Atraumatic, PERRLA, EOMI, Normocephalic, - - No scleral icterus or injection noted. Oral: Moist Mucosa, No Gingival or Mucosal Lesions/ Ulcerations Neck: Supple, No JVD, No Nodes, Trachea Midline Lungs: No rhonchi, No wheeze, No rales, Diminished, - - Symmetric expansion. No dullness to percussion. Cardiovascular: Regular rate, Regular Rhythm, Normal S1, Normal S2, No murmurs, No rub noted, No Gallop Abdomen: Bowel Sounds Present, Soft, Non Tender, Non-Distended, Obese Extremities: No clubbing, No cyanosis, Edema - Lateral lower extremities. Skin: No rashes, No breakdown Musculoskeletal: No Tenderness to Palpation of Joints or Extremities Lymphatic: No Cervical, Supraclavicular, or Inguinal Adenopathy Neurological: Cranial nerves II-XII grossly intact, Neuro grossly intact, Motor Exam 5/5 strength throughout Psych/Mental Status: Alert and oriented to time, place, person, mood and affect Vital Signs Temp Pulse Resp BP Pulse Ox 36.2 C L 65 17 90/46 L 97 09/14/18 04:00 09/14/18 07:00 09/14/18 07:00 09/14/18 07:00 09/14/18 07:00 Oxygen Flow Rate (L/min) 3 Oxygen Delivery Method Nasal Cannula Weight: 138.4 kg Body Mass Index (BMI) 48.9 Finger Stick Blood Glucose 68 Intake and Output for Last 24 Hours 07/08/2609/13/18 09/14/18 23:59 23:59 23:59 Intake Total 990 / 990 Balance 990 / 990 Laboratory Tests Past 24 Hrs 09/13/18 09/13/18 09/13/18 16:52 16:52 16:52 WBC 4.9 RBC 3.16 L Hgb 9.7 L Hct 31.4 L MCV 99.4 H MCH 30.7 MCHC 30.9 L RDW 15.5 H RDW Differential 55.3 H Plt Count 201 MPV 10.2 Immature Gran % (Auto) 0.200 Neut % (Auto) 56.5 Lymph % (Auto) 24.3 [place] % (Auto) 6.9 Eos % (Auto) 11.3 H Baso % (Auto) 0.8 Absolute Neuts (auto) 2.8 Absolute Lymphs (auto) 1.20 Total Counted Not Reportable PT Cancelled INR Cancelled Sodium Cancelled Potassium Cancelled Chloride Cancelled Carbon Dioxide Cancelled Anion Gap Cancelled BUN Cancelled Creatinine Cancelled Estim Creat Clear Calc Cancelled Est GFR (MDRD) Af Amer Cancelled Est GFR (MDRD) Non-Af Cancelled BUN/Creatinine Ratio Cancelled Glucose Cancelled Lactic Acid Calcium Cancelled Total Bilirubin Cancelled AST Cancelled ALT Cancelled Alkaline Phosphatase Cancelled Troponin I Cancelled Total Protein Cancelled Albumin Cancelled Globulin Cancelled Albumin/Globulin Ratio Cancelled Vitamin B12 09/13/18 09/13/18 09/13/18 16:52 17:55 17:55 WBC RBC Hgb Hct MCV MCH MCHC RDW RDW Differential Plt Count MPV Immature Gran % (Auto) Neut % (Auto) Lymph % (Auto) [place] % (Auto) Eos % (Auto) Baso % (Auto) Absolute Neuts (auto) Absolute Lymphs (auto) Total Counted PT 19.6 H INR 1.7 Sodium 134 L Potassium 3.5 Chloride 98 Carbon Dioxide 30.0 Anion Gap 6 BUN 20 H Creatinine 6.42 H Estim Creat Clear Calc 9.94 Est GFR (MDRD) Af Amer 11 L Est GFR (MDRD) Non-Af 9 L BUN/Creatinine Ratio 3.1 L Glucose 96 Lactic Acid Calcium 9.4 Total Bilirubin 0.40 AST 23 ALT 11 L Alkaline Phosphatase 124 H Troponin I 0.019 Total Protein 7.6 Albumin 2.9 L Globulin 4.7 H Albumin/Globulin Ratio 0.6 L Vitamin B12 Pending 09/13/18 09/14/18 09/14/18 21:05 04:00 04:00 WBC 4.7 RBC 2.83 L Hgb 8.7 L Hct 28.3 L MCV 100.0 H MCH 30.7 MCHC 30.7 L RDW 15.3 H RDW Differential 54.8 H Plt Count 174 MPV 9.5 Immature Gran % (Auto) Neut % (Auto) Lymph % (Auto) [place] % (Auto) Eos % (Auto) Baso % (Auto) Absolute Neuts (auto) Absolute Lymphs (auto) Total Counted PT Cancelled INR Cancelled Sodium Potassium Chloride Carbon Dioxide Anion Gap BUN Creatinine Estim Creat Clear Calc Est GFR (MDRD) Af Amer Est GFR (MDRD) Non-Af BUN/Creatinine Ratio Glucose Lactic Acid 0.9 Calcium Total Bilirubin AST ALT Alkaline Phosphatase Troponin I Total Protein Albumin Globulin Albumin/Globulin Ratio Vitamin B12 09/14/18 09/14/18 04:00 04:15 WBC RBC Hgb Hct MCV MCH MCHC RDW RDW Differential Plt Count MPV Immature Gran % (Auto) Neut % (Auto) Lymph % (Auto) [place] % (Auto) Eos % (Auto) Baso % (Auto) Absolute Neuts (auto) Absolute Lymphs (auto) Total Counted PT 22.3 H INR 2.0 Sodium 137 Potassium 3.4 L Chloride 100 Carbon Dioxide 29.0 Anion Gap 8 BUN 23 H Creatinine 6.88 H Estim Creat Clear Calc 9.27 Est GFR (MDRD) Af Amer 10 L Est GFR (MDRD) Non-Af 9 L BUN/Creatinine Ratio 3.3 L Glucose 94 Lactic Acid Calcium 8.8 Total Bilirubin AST ALT Alkaline Phosphatase Troponin I Total Protein Albumin Globulin Albumin/Globulin Ratio Vitamin B12 Clinical Impression(s) from Imaging Studies Brain CT 09/13/18 17:21 IMPRESSION: Mild atrophy and periventricular white matter ischemic changes. No evidence for acute bleed. If concern for acute infarct MRI recommended. Electronically Signed: Freddy Decker MD at 18:54 EDT , Service support , Chest X-Ray 09/13/18 17:25 IMPRESSION: Mild bibasilar atelectasis and small right effusion Electronically Signed: Freddy Decker MD at 17:56 EDT , Service support , Assessment/Plan Active and Suspected Problems (Last Reviewed 09/13/18 @ 20:17 by Stew Aldrich MD) Acute encephalopathy (Acute) Hypotension (Acute) RECOMMENDATIONS: 1. Transition midodrine to daily 2. Hemodialysis today 3. Await echocardiogram, trend troponins 4. Therapeutic substitution for COPD inhaler 5. Wean oxygen as tolerated IMPRESSIONS: 1. Acute encephalopathy secondary to hypotension Exact etiology is unclear at this time. Patient has had some low diastolic pressures and is on midodrine at baseline. Patient does have an echocardiogram currently pending, but no troponins have been obtained. No significant EKG changes are appreciated. Patient does not have any fevers, leukocytosis or rashes to suggest infectious etiology at this time. Antibiotics will be initiated if patient develops any of the symptoms. Patient is on beta- blockers at baseline secondary to A. fib, but rate appears to be appropriate at this time. 2. End-stage renal disease Today is a routine hemodialysis day. Nephrology has been consulted. Continue with dietary modification and Nephrocaps as indicated. Monitor patient in intensive care for hemodialysis. If tolerates well, patient can likely be transferred from the intensive care. 3. Paroxysmal A. fib Patient appears to be in a sinus rhythm at this time. Patient's Coumadin is therapeutic at this time. Patient does take metoprolol at baseline, but this is been held secondary to #1. 4. COPD/morbid obesity/restless legs/multiple allergies/poor historian Complicates care, management, recovery and prognosis. Patient does not appear to be in an acute exacerbation of COPD at this time. Therapeutic substitution would be appropriate. Wean oxygen as tolerated. Code Visit Inpatient E&M: 61607 Init Hosp L3
--- NOTE | 2018-09-14 09:35 | CASEMGMT ---
SW participated in ICU rounds, confirmed w/pt is here from [facility]. 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 CLARA faxed updates to [facility], will continue to follow. REYNA Kirk
[2018-09-14] MEDS: Docusate Sodium 100 MG Capsule PO (09:44)
[2018-09-14] MEDS: Pantoprazole Sodium 40 MG Tablet PO (09:44)
[2018-09-14] MEDS: Calcium Acetate 667 MG Capsule 1334 MG PO ×3 (09:44→20:14)
[2018-09-14] MEDS: Escitalopram Oxalate 10 MG Tablet PO (09:44)
[2018-09-14] MEDS: Gabapentin 300 MG Capsule PO (09:44)
[2018-09-14] MEDS: Folic Acid/Vitamin B Comp W-C 1 Capsule 1 CAP PO (09:45)
[2018-09-14] MEDS: Ferrous Sulfate 325 MG Tablet PO ×2 (09:45→20:14)
[2018-09-14] MEDS: Nystatin Powder 15gm Bottle 1 APPLIC TOPICAL ×2 (09:45→21:07)
[2018-09-14] MEDS: Midodrine HCl 5 MG Tablet 10 MG PO (09:45)
[2018-09-14] MEDS: Cholestyramine/Sucrose 4 GM/PACKET PO ×2 (09:46→21:07)
[2018-09-14 09:50] LABS: Vitamin B12 1114 pg/mL (211-911)
--- NOTE | 2018-09-14 11:21 | PCM.CONS.R ---
Problem List (1) ESRD (end stage renal disease) on dialysis Status: Chronic Consultation - Renal 09/14/18 PCP/ Referring MD: Requesting physician: Dr Aldrich Primary care physician: Heraclio Whitehead MD Reason for Consultation:: ESRD - History of Present Illness History of Present Illness: The patient is a 68 year old M well-known to us. Known history of end-stage renal disease on hemodialysis Friday, Friday, Friday schedule. Last dialysis was Friday last week. Apparently he was fairly confused at the [facility] and was sent in. Found to have significant hypotension. Received IV fluids yesterday. Mental status is back to baseline today. Blood pressure is better with systolic around 110 right now. He usually runs on the lower side with systolic between 70-80. No signs of sepsis. Lactate normal. White count normal. Fever negative. He had a pseudoaneurysm rupture of AV fistula recently. Has a right IJ tunneled dialysis catheter. - Allergies Allergies: Allergies mirtazapine [From Remeron] Allergy (Verified 09/13/18 16:40) forgetful, doesn't remember anything Sulfa (Sulfonamide Antibiotics) Allergy (Verified 09/13/18 16:40) bleeding from kidneys aspirin Adverse Reaction (Verified 09/13/18 16:40) Nausea oxycodone HCl [From Percodan] Adverse Reaction (Verified 09/13/18 16:40) Nausea oxycodone terephthalate [From Percodan] Adverse Reaction (Verified 09/13/18 16:40) Nausea - Current Medications Current Medications: Current Medications Acetaminophen (Tylenol) 650 mg PO Q6H PRN PRN PRN Reason: Mild pain 1-3/Temp > 100.7 F Last Admin: 09/13/18 21:39 Dose: 650 mg Documented by: Al Hydroxide/Mg Hydroxide (Mylanta Ii) 30 ml PO Q4H PRN PRN PRN Reason: INDEGESTION Albuterol Sulfate (Ventolin Aerosols) 2.5 mg INHALATION Q2H PRN PRN Reason: sob/wheezing Albuterol/Ipratropium (Duoneb) 3 ml INHALATION Q6HWA.RT [facility] Last Admin: 09/14/18 06:52 Dose: 3 ml Documented by: Bisacodyl (Dulcolax) 10 mg RECTAL DAILY PRN PRN PRN Reason: Constipation Budesonide (Pulmicort Aerosol) 0.5 mg INHALATION Q12H.RT [facility] Last Admin: 09/14/18 06:52 Dose: 0.5 mg Documented by: Calcium Acetate (Phoslo Gel Cap) 1,334 mg PO TIDCM [facility] Last Admin: 09/14/18 09:44 Dose: 1,334 mg Documented by: Cholestyramine Resin (Questran 4gm Packet) 4 gm PO BID [facility] Last Admin: 09/14/18 09:46 Dose: 4 gm Documented by: Dextrose (D50w Syringe) 0 gm IV X1 PRN; Protocol PRN Reason: Hypoglycemia Docusate Sodium (Colace) 100 mg PO DAILY [facility] Last Admin: 09/14/18 09:44 Dose: 100 mg Documented by: Escitalopram Oxalate (Lexapro) 10 mg PO DAILY [facility] Last Admin: 09/14/18 09:44 Dose: 10 mg Documented by: Ferrous Sulf[facility] ([facility] S[facility]) [facility] Last Admin: 09/14/18 09:45 Dose: 325 mg Documented by: Gabapentin (Neurontin) 300 mg PO DAILY [facility] Last Admin: 09/14/18 09:44 Dose: 300 mg Documented by: Glucagon () 1 mg IM .X1 PRN PRN Reason: Hypoglycemia Guaifenesin (Robitussin) 10 ml PO Q4H PRN PRN PRN Reason: COUGH Sodium Chloride () 250 mls @ 15 mls/hr IV .[id number] PRN PRN Reason: SALINE FLUSH Loperamide HCl (Imodium) 2 mg PO Q6H PRN PRN PRN Reason: Diarrhea Magnesium Hydroxide (Milk Of Magnesia) 30 ml PO DAILY PRN PRN PRN Reason: Constipation Melatonin (Melatonin) 3 mg PO QHS PRN PRN PRN Reason: INSOMNIA Midodrine (Proamatine) 10 mg PO MoWeFr@1000 [facility] Last Admin: 09/14/18 09:45 Dose: 10 mg Documented by: Multivit/Ca Carb/B Cmplx/FA/Prenat (Nephrocaps, Renaphro) [facility] Last Admin: 09/14/18 09:45 Dose: 1 capsule Documented by: Nystatin (Mycostatin Powder) 1 applic TOPICAL BID [facility]; Protocol Last Admin: 09/14/18 09:45 Dose: 1 applicatio Documented by: Ondansetron HCl (Zofran) 4 mg IV Q8H PRN PRN PRN Reason: NAUSEA/VOMITING Ondansetron HCl (Zofran Odt) 4 mg PO Q6H PRN PRN PRN Reason: NAUSEA Pantoprazole Sodium (Protonix) 40 mg PO DAILY [facility] Last Admin: 09/14/18 09:44 Dose: 40 mg Documented by: Pramipexole Dihydrochloride (Mirapex) 0.5 mg PO QHS [facility] Last Admin: 09/13/18 21:39 Dose: 0.5 mg Documented by: Sodium Biphosphate/Sodium Phosphate (Fleet Enema) 1 bottle RECTAL DAILY PRN PRN PRN Reason: Constipation Sodium Chloride () 10 - 40 ml IV UD PRN PRN Reason: SALINE FLUSH Warfarin Sodium (Coumadin (Pbkc)) 2 mg PO SuMoWeFr@1700 [facility] Warfarin Sodium (Coumadin (Pbkc)) 3 mg PO TuThSa@1700 [facility] - Past Medical History Past Medical History (Chronic Problems): Chronic Problems (Last Reviewed 09/13/18 @ 20:17 by Stew Aldrich MD) ESRD (end stage renal disease) on dialysis (Chronic) C. difficile diarrhea (Chronic) Benign hypertension (Chronic) BPH (benign prostatic hyperplasia) (Chronic) Depression (Chronic) Hyperlipidemia (Chronic) IgA nephropathy (Chronic) Chronic gout (Chronic) Diabetes mellitus, type 2 (Chronic) DIET CONTROLLED Diastolic Dysfunction EF 60% (Chronic) Fatty liver (Chronic) KATHY on CPAP (Chronic) 16 CM WATER COPD (chronic obstructive pulmonary disease) (Chronic) With chronic respiratory failure On 3 L nasal cannula Left kidney mass (Chronic) Super obesity (Chronic) bmi 64 Chronic low back pain (Chronic) Pulmonary hypertension (Chronic) Paroxysmal atrial fibrillation (Chronic) Anemia of chronic renal failure (Chronic) Hyperkalemia (Chronic) Falls frequently (Chronic) - Past Surgical History Surgical History: colectomy, total knee arthroplasty - Bilateral, - - LLA Fistula - Social History Smoking Status: Never smoker Alcohol: Occasional - Family History Maternal History Items: COPD, Diabetes, Heart Disease, Hypertension - He, Pulmonary Disease, Renal Disease Paternal History Items: No pertinent history Review of Systems Constitutional: Denies: Chills, Fever, Weight Change HEENT: Denies: Head Aches, Sinus Congestion, Sinus Drainage Cardiovascular: Denies: Chest Pain, Palpitations Respiratory: Denies: Cough, Shortness of breath at rest, Sputum production Gastrointestinal: Denies: Abdominal Pain, Nausea, Vomiting Genitourinary: Denies: Dysuria Musculoskeletal: Denies: Joint Pain, Joint Tenderness Skin: Denies: Rash, Wounds Neurological: Denies: Numbness, Tingling, Focal weakness Psychiatric: Denies: Anxiety, Depression, Homicidal Ideations, Suicidal Ideations Hematologic/ Lymphatic: Denies: Easy Bruising, Easy Bleeding Patient Problems: Active and Suspected Problems (Last Reviewed 09/13/18 @ 20:17 by Stew Aldrich MD) Acute encephalopathy (Acute) Hypotension (Acute) - Physical Exam General: Alert, Oriented x3, Cooperative HEENT: Atraumatic, PERRLA, EOMI, Normocephalic Neck: Supple, No JVD, Negative Carotid Bruits Lungs: Clear to auscultation, Normal air movement Cardiovascular: Regular rate, No murmurs Abdomen: Bowel Sounds Present, Soft, Non Tender Extremities: No edema, Capillary Refill Less than 3 Seconds Skin: No rashes, No breakdown Musculoskeletal: No Tenderness to Palpation of Joints or Extremities Neurological: Cranial nerves II-XII grossly intact Psych/Mental Status: Normal Affect, Appropriate Vital Signs Temp Pulse Resp BP Pulse Ox 97.4 F L 66 14 104/48 L 98 09/14/18 08:00 09/14/18 11:00 09/14/18 11:00 09/14/18 11:00 09/14/18 11:00 Oxygen Flow Rate (L/min) 2 Oxygen Delivery Method Nasal Cannula Weight: 138.4 kg Body Mass Index (BMI) 48.9 Finger Stick Blood Glucose 68 Intake and Output for Last 24 Hours 09/12/18 09/13/18 09/14/18 23:59 23:59 23:59 Intake Total 990 / 990 Balance 990 / 990 Laboratory Tests Past 24 Hrs 09/13/18 09/13/18 09/13/18 16:52 16:52 16:52 WBC 4.9 RBC 3.16 L Hgb 9.7 L Hct 31.4 L MCV 99.4 H MCH 30.7 MCHC 30.9 L RDW 15.5 H RDW Differential 55.3 H Plt Count 201 MPV 10.2 Immature Gran % (Auto) 0.200 Neut % (Auto) 56.5 Lymph % (Auto) 24.3 [place] % (Auto) 6.9 Eos % (Auto) 11.3 H Baso % (Auto) 0.8 Absolute Neuts (auto) 2.8 Absolute Lymphs (auto) 1.20 Total Counted Not Reportable PT Cancelled INR Cancelled Sodium Cancelled Potassium Cancelled Chloride Cancelled Carbon Dioxide Cancelled Anion Gap Cancelled BUN Cancelled Creatinine Cancelled Estim Creat Clear Calc Cancelled Est GFR (MDRD) Af Amer Cancelled Est GFR (MDRD) Non-Af Cancelled BUN/Creatinine Ratio Cancelled Glucose Cancelled Lactic Acid Calcium Cancelled Total Bilirubin Cancelled AST Cancelled ALT Cancelled Alkaline Phosphatase Cancelled Troponin I Cancelled Total Protein Cancelled Albumin Cancelled Globulin Cancelled Albumin/Globulin Ratio Cancelled Vitamin B12 09/13/18 09/13/18 09/13/18 16:52 17:55 17:55 WBC RBC Hgb Hct MCV MCH MCHC RDW RDW Differential Plt Count MPV Immature Gran % (Auto) Neut % (Auto) Lymph % (Auto) [place] % (Auto) Eos % (Auto) Baso % (Auto) Absolute Neuts (auto) Absolute Lymphs (auto) Total Counted PT 19.6 H INR 1.7 Sodium 134 L Potassium 3.5 Chloride 98 Carbon Dioxide 30.0 Anion Gap 6 BUN 20 H Creatinine 6.42 H Estim Creat Clear Calc 9.94 Est GFR (MDRD) Af Amer 11 L Est GFR (MDRD) Non-Af 9 L BUN/Creatinine Ratio 3.1 L Glucose 96 Lactic Acid Calcium 9.4 Total Bilirubin 0.40 AST 23 ALT 11 L Alkaline Phosphatase 124 H Troponin I 0.019 Total Protein 7.6 Albumin 2.9 L Globulin 4.7 H Albumin/Globulin Ratio 0.6 L Vitamin B12 1114 H 09/13/18 09/14/18 09/14/18 21:05 04:00 04:00 WBC 4.7 RBC 2.83 L Hgb 8.7 L Hct 28.3 L MCV 100.0 H MCH 30.7 MCHC 30.7 L RDW 15.3 H RDW Differential 54.8 H Plt Count 174 MPV 9.5 Immature Gran % (Auto) Neut % (Auto) Lymph % (Auto) [place] % (Auto) Eos % (Auto) Baso % (Auto) Absolute Neuts (auto) Absolute Lymphs (auto) Total Counted PT Cancelled INR Cancelled Sodium Potassium Chloride Carbon Dioxide Anion Gap BUN Creatinine Estim Creat Clear Calc Est GFR (MDRD) Af Amer Est GFR (MDRD) Non-Af BUN/Creatinine Ratio Glucose Lactic Acid 0.9 Calcium Total Bilirubin AST ALT Alkaline Phosphatase Troponin I Total Protein Albumin Globulin Albumin/Globulin Ratio Vitamin B12 09/14/18 09/14/18 04:00 04:15 WBC RBC Hgb Hct MCV MCH MCHC RDW RDW Differential Plt Count MPV Immature Gran % (Auto) Neut % (Auto) Lymph % (Auto) [place] % (Auto) Eos % (Auto) Baso % (Auto) Absolute Neuts (auto) Absolute Lymphs (auto) Total Counted PT 22.3 H INR 2.0 Sodium 137 Potassium 3.4 L Chloride 100 Carbon Dioxide 29.0 Anion Gap 8 BUN 23 H Creatinine 6.88 H Estim Creat Clear Calc 9.27 Est GFR (MDRD) Af Amer 10 L Est GFR (MDRD) Non-Af 9 L BUN/Creatinine Ratio 3.3 L Glucose 94 Lactic Acid Calcium 8.8 Total Bilirubin AST ALT Alkaline Phosphatase Troponin I Total Protein Albumin Globulin Albumin/Globulin Ratio Vitamin B12 Assessment/Plan All Active Problems (Last Reviewed 09/13/18 @ 20:17 by Stew Aldrich MD) Problem with dialysis access (Acute) Acute encephalopathy (Acute) Hypotension (Acute) Shock (Acute) Acute respiratory failure (Acute) Diarrhea (Resolved) Hemorrhage of arteriovenous fistula (Resolved) Finger necrosis (Resolved) Yeast dermatitis (Acute) Enterococcal bacteremia (Resolved) ESRD. Hemodialysis to be arranged today. Hypotension. Chronic hypotension. Usually requires Midodrine with dialysis. Asymptomatic right now. Blood pressure is acceptable. Anemia. Hemoglobin is acceptable. Access. Right IJ tunneled dialysis catheter. Left arm AV fistula site looks okay.
--- NOTE | 2018-09-14 12:02 | CASEMGMT ---
LW/POA from 2010 in [facility], CLARA printed and placed on paper chart. Carmelina Mac is listed as POA, Sharon and Don as alternates. Pt had indicated on admission his sister Chantale is POA however. SW called [facility], the forms they have on file are the same as we have here at the hospital. SW attempted to speak w/pt about POA forms, he is sleeping soundly. SW will follow up again as time allows. REYNA Kirk
--- NOTE | 2018-09-14 12:24 | PN_ITS ---
Patient Problems: Active and Suspected Problems (Last Reviewed 09/13/18 @ 20:17 by Stew Aldrich MD) Acute encephalopathy (Acute) Hypotension (Acute) Subjective: Denies any complaints at this time. No further hypotensive episodes. Vitals/I&O's: Vital Signs Temp Pulse Resp BP Pulse Ox 36.3 C L 66 14 104/48 L 98 09/14/18 08:00 09/14/18 11:00 09/14/18 11:00 09/14/18 11:00 09/14/18 11:00 Oxygen Flow Rate (L/min) 2 Oxygen Delivery Method Nasal Cannula Weight: 138.4 kg Body Mass Index (BMI) 48.9 Finger Stick Blood Glucose 68 Intake and Output for Last 24 Hours 09/12/18 09/13/18 09/14/18 23:59 23:59 23:59 Intake Total 1230 / 1230 Balance 1230 / 1230 General: Alert, No apparent distress HEENT: Atraumatic, Normocephalic Oral: Moist Mucosa, No Gingival or Mucosal Lesions/ Ulcerations Neck: No Nodes, Thyroid Normal Size and Texture Lungs: Clear to auscultation, Normal air movement, No rhonchi, No wheeze, No rales Cardiovascular: Regular rate, Regular Rhythm, Normal S1, Normal S2, No murmurs Abdomen: Bowel Sounds Present, Soft, Non Tender, Non-Distended, No Hepato- splenomegaly Extremities: No edema, No Calf Tenderness Psych/Mental Status: Normal Affect, Appropriate Laboratory Results 09/13/18 16:52: WBC 4.9, RBC 3.16 L, Hgb 9.7 L, Hct 31.4 L, MCV 99.4 H, MCH 30.7, MCHC 30.9 L, RDW 15.5 H, RDW Differential 55.3 H, Plt Count 201, MPV 10.2, Immature Gran % (Auto) 0.200, Neut % (Auto) 56.5, Lymph % (Auto) 24.3, [place] % (Auto) 6.9, Eos % (Auto) 11.3 H, Baso % (Auto) 0.8, Absolute Neuts (auto) 2.8, Absolute Lymphs (auto) 1.20, Total Counted Not Reportable 09/13/18 16:52: PT Cancelled, INR Cancelled 09/13/18 16:52: Sodium Cancelled, Potassium Cancelled, Chloride Cancelled, Carbon Dioxide Cancelled, Anion Gap Cancelled, BUN Cancelled, Creatinine Cancelled, Estim Creat Clear Calc Cancelled, Est GFR (MDRD) Af Amer Cancelled, Est GFR (MDRD) Non-Af Cancelled, BUN/Creatinine Ratio Cancelled, Glucose Cancelled, Calcium Cancelled, Total Bilirubin Cancelled, AST Cancelled, ALT Cancelled, Alkaline Phosphatase Cancelled, Troponin I Cancelled, Total Protein Cancelled, Albumin Cancelled, Globulin Cancelled, Albumin/Globulin Ratio Cancelled 09/13/18 16:52: Vitamin B12 1114 H 09/13/18 17:55: Sodium 134 L, Potassium 3.5, Chloride 98, Carbon Dioxide 30.0, Anion Gap 6, BUN 20 H, Creatinine 6.42 H, Estim Creat Clear Calc 9.94, Est GFR (MDRD) Af Amer 11 L, Est GFR (MDRD) Non-Af 9 L, BUN/Creatinine Ratio 3.1 L, Glucose 96, Calcium 9.4, Total Bilirubin 0.40, AST 23, ALT 11 L, Alkaline Phosphatase 124 H, Troponin I 0.019, Total Protein 7.6, Albumin 2.9 L, Globulin 4.7 H, Albumin/Globulin Ratio 0.6 L 09/13/18 17:55: PT 19.6 H, INR 1.7 09/13/18 21:05: Lactic Acid 0.9 09/14/18 04:00: PT Cancelled, INR Cancelled 09/14/18 04:00: WBC 4.7, RBC 2.83 L, Hgb 8.7 L, Hct 28.3 L, MCV 100.0 H, MCH 30.7, MCHC 30.7 L, RDW 15.3 H, RDW Differential 54.8 H, Plt Count 174, MPV 9.5 09/14/18 04:00: Sodium 137, Potassium 3.4 L, Chloride 100, Carbon Dioxide 29.0, Anion Gap 8, BUN 23 H, Creatinine 6.88 H, Estim Creat Clear Calc 9.27, Est GFR (MDRD) Af Amer 10 L, Est GFR (MDRD) Non-Af 9 L, BUN/Creatinine Ratio 3.3 L, Glucose 94, Calcium 8.8 09/14/18 04:15: PT 22.3 H, INR 2.0 Current Medications Acetaminophen (Tylenol) 650 mg PO Q6H PRN PRN PRN Reason: Mild pain 1-3/Temp > 100.7 F Last Admin: 09/13/18 21:39 Dose: 650 mg Documented by: Al Hydroxide/Mg Hydroxide (Mylanta Ii) 30 ml PO Q4H PRN PRN PRN Reason: INDEGESTION Albuterol Sulfate (Ventolin Aerosols) 2.5 mg INHALATION Q2H PRN PRN Reason: sob/wheezing Albuterol/Ipratropium (Duoneb) 3 ml INHALATION Q6HWA.RT COUNTS INCLUDE 234 BEDS AT THE [facility] Last Admin: 09/14/18 06:52 Dose: 3 ml Documented by: Bisacodyl (Dulcolax) 10 mg RECTAL DAILY PRN PRN PRN Reason: Constipation Budesonide (Pulmicort Aerosol) 0.5 mg INHALATION Q12H.RT COUNTS INCLUDE 234 BEDS AT THE [facility] Last Admin: 09/14/18 06:52 Dose: 0.5 mg Documented by: Calcium Acetate (Phoslo Gel Cap) 1,334 mg PO TIDCM COUNTS INCLUDE 234 BEDS AT THE [facility] Last Admin: 09/14/18 09:44 Dose: 1,334 mg Documented by: Cholestyramine Resin (Questran 4gm Packet) 4 gm PO BID COUNTS INCLUDE 234 BEDS AT THE [facility] Last Admin: 09/14/18 09:46 Dose: 4 gm Documented by: Dextrose (D50w Syringe) 0 gm IV X1 PRN; Protocol PRN Reason: Hypoglycemia Docusate Sodium (Colace) 100 mg PO DAILY COUNTS INCLUDE 234 BEDS AT THE [facility] Last Admin: 09/14/18 09:44 Dose: 100 mg Documented by: Escitalopram Oxalate (Lexapro) 10 mg PO DAILY [facility]S INCLUDE 234 BEDS AT THE [facility] Last Admin: 09/14/18 09:44 Dose: 10 mg Documented by: Ferrous Sulfate (Ferrous Sulfate) 325 mg PO BIDCM COUNTS INCLUDE 234 BEDS AT THE [facility] Last Admin: 09/14/18 09:45 Dose: 325 mg Documented by: Gabapentin (Neurontin) 300 mg PO DAILY COUNTS INCLUDE 234 BEDS AT THE [facility] Last Admin: 09/14/18 09:44 Dose: 300 mg Documented by: Glucagon () 1 mg IM .X1 PRN PRN Reason: Hypoglycemia Guaifenesin (Robitussin) 10 ml PO Q4H PRN PRN PRN Reason: COUGH Sodium Chloride () 250 mls @ 15 mls/hr IV .[id number] PRN PRN Reason: SALINE FLUSH Loperamide HCl (Imodium) 2 mg PO Q6H PRN PRN PRN Reason: Diarrhea Magnesium Hydroxide (Milk Of Magnesia) 30 ml PO DAILY PRN PRN PRN Reason: Constipation Melatonin (Melatonin) 3 mg PO QHS PRN PRN PRN Reason: INSOMNIA Midodrine (Proamatine) 10 mg PO MoWeFr@1000 COUNTS INCLUDE 234 BEDS AT THE [facility] Last Admin: 09/14/18 09:45 Dose: 10 mg Documented by: Multivit/Ca Carb/B Cmplx/FA/Prenat (Nephrocaps, Renaphro) 1 capsule PO DAILYCM COUNTS INCLUDE 234 BEDS AT THE [facility] Last Admin: 09/14/18 09:45 Dose: 1 capsule Documented by: Nystatin (Mycostatin Powder) 1 applic TOPICAL BID COUNTS INCLUDE 234 BEDS AT THE [facility]; Protocol Last Admin: 09/14/18 09:45 Dose: 1 applicatio Documented by: Ondansetron HCl (Zofran) 4 mg IV Q8H PRN PRN PRN Reason: NAUSEA/VOMITING Ondansetron HCl (Zofran Odt) 4 mg PO Q6H PRN PRN PRN Reason: NAUSEA Pantoprazole Sodium (Protonix) 40 mg PO DAILY COUNTS INCLUDE 234 BEDS AT THE [facility] Last Admin: 09/14/18 09:44 Dose: 40 mg Documented by: Pramipexole Dihydrochloride (Mirapex) 0.5 mg PO QHS COUNTS INCLUDE 234 BEDS AT THE [facility] Last Admin: 09/13/18 21:39 Dose: 0.5 mg Documented by: Sodium Biphosphate/Sodium Phosphate (Fleet Enema) 1 bottle RECTAL DAILY PRN PRN PRN Reason: Constipation Sodium Chloride () 10 - 40 ml IV UD PRN PRN Reason: SALINE FLUSH Warfarin Sodium (Coumadin (Pbkc)) 2 mg PO SuMoWeFr@1700 COUNTS INCLUDE 234 BEDS AT THE [facility] Warfarin Sodium (Coumadin (Pbkc)) 3 mg PO TuThSa@1700 COUNTS INCLUDE 234 BEDS AT THE [facility] Medical Necessity - Tobacco Use Smoking Status: Never smoker Assessment/Plan All Active Problems (Last Reviewed 09/13/18 @ 20:17 by Stew Aldrich MD) Problem with dialysis access (Acute) Acute encephalopathy (Acute) Hypotension (Acute) Shock (Acute) Acute respiratory failure (Acute) Diarrhea (Resolved) Hemorrhage of arteriovenous fistula (Resolved) Finger necrosis (Resolved) Yeast dermatitis (Acute) Enterococcal bacteremia (Resolved) 1. Hypotension * Transient and resolved * Unclear etiology has that was not on his typical dialysis day * Work-up thus far has been unremarkable * Patient to have dialysis and if does well then patient will be transferred to the progressive care unit and observed. If patient otherwise remains stable on the nin, likely would be discharged home. 2. Metabolic encephalopathy * Likely trivial to the hypotensive episode * Currently resolved * Monitor for now 3. End-stage renal disease * Nephrology following * Patient to have dialysis today 4. Paroxysmal atrial fibrillation * Anticoagulated on Coumadin 5. VTE prophylaxis: Not indicated as patient is already on Coumadin. Code Visit Inpatient E&M: 65937 Subs Hosp L2
[2018-09-14] MEDS: 0.9% NaCl Peripheral Flush Adult/Peds IV (12:31)
--- NOTE | 2018-09-14 15:16 | NURSING ---
wound photo: left forearm
--- NOTE | 2018-09-14 15:29 | CHAPLAIN ---
Type of Pastoral Visit _x__ Initial Visit ___ Follow-up Visit ___ On-call Visit ___ General Patient Visit ___ Spiritual Assessment ___ Family Conference ___ Bereavement ___ Rapid Response ___ Code Blue ___ Other (describe below) Pastoral Care Referral From _x__ Patient ___ Family ___ Nurse ___ Physician ___ Content Analyst ___ Frame Hand ___ Other (describe below) Sacrament/Intervention _x__ Active listening ___ Anointing ___ Islam ___ Bereavement ___ Communion ___ Pema exploration ___ ___ Life review _x__ Prayer ___ Reconciliation ___ Sacrament of Sick _x__ Supportive presence ___ Wedding ___ Other (describe below) Pastoral Comments
--- NOTE | 2018-09-14 16:14 | NURSING ---
SPOKE WITH QUALIFICATION ENGINEER, QUALIFICATION ENGINEER STATES TO HOLD OFF ON 1700 MEDS (COUMADIN, PHOSLO, AND FERROUS SULFATE) UNTIL TREATMENT IS COMPLETE AT 194
[2018-09-14] MEDS: Heparin 10,000 UNITS/10 ML Vial IV (20:11)
--- NOTE | 2018-09-14 20:17 | DIALYSIS ---
HD [id number] completed, tolerated well, accessed via right chest tunneled HD catheter, BP monitored in LLE, pt reports having his BP taken here when at his dialysis center, UF 1400mL, CritLine ended with Profile B, asymptomatic hypotension periodically during treatment, HepB SA lab drawn during treatment, see dialysis flow records printed and placed in patient's chart
[2018-09-14] MEDS: Pramipexole Di-HCl 0.5 MG Tablet PO (21:06)
[2018-09-15] VITALS (14 sets, daily range): BP systolic 94–150; BP diastolic 35–54; PULSE 79–87; RESP 18–20; TEMP 36.6–36.9; O2SAT 96–100
[2018-09-15] MEDS: 0.9% NaCl Peripheral Flush Adult/Peds IV (03:39)
[2018-09-15 03:47] LABS: Absolute Lymphocyte Count 0.79 X10^3/ul (0.83-4.51); Basophil# 0.03 X10^3/uL; Basophil% 0.5 % (0-1); Eosinophil# 0.45 X10^3/uL; Eosinophils% 8.1 % (0-5); Hematocrit 30.2 % (40-54); Hemoglobin 9.2 g/dl (13.0-16.5); Lymphocyte # 0.79 X10^3/ul (4.0); Lymphocyte % 14.3 % (19-41); Mean Corp Hgb Conc 30.5 g/gl (32-36); Mean Corpuscular Hgb 30.4 pg (27.0-32.0); Mean Corpuscular Volume 99.7 fL (80-94); Mean Platelet Vol. 9.6 fl (6.2-12.0); Monocyte# 0.29 X10^3/uL; Monocyte% 5.2 % (0-10); Neutrophil # 3.96 X10^3/uL (2.7-7.7); Neutrophil % 71.7 % (47-70); POSITIVE COUNT NO; POSITIVE DIFFERENTIAL NO; POSITIVE MORPHOLOGY NO; Platelet Count 149 K/mm3 (150-450); RBC Distribution Width SD 50.5 fl (35.1-43.9); Red Blood Count 3.03 M/mm3 (4.6-6.2); White Blood Count 5.5 K/mm3 (4.4-11.0)
[2018-09-15 04:04] LABS: Anion Gap 7 (5-15); BUN 13 mg/dL (7-18); Chloride 101 mmol/L (98-107); Creatinine, Serum 4.36 mg/dL (0.70-1.30); EST Glomerular Filtration Rate 14 mL/min (>60); Est Glom Filt Rate - Afr Amer 17 mL/min (>60); Estimated Creatinine Clearance 14.63 ml/min; Glucose 108 mg/dL (74-106); Potassium 3.6 mmol/L (3.5-5.1); Sodium Level 137 mmol/L (136-145)
--- NOTE | 2018-09-15 06:41 | PCM.PN.INT ---
Subjective: Patient did well overnight. Patient's blood pressure actually improved following hemodialysis. Patient has been made for status. Patient with no complaints this morning. Patient has been stable on 2 L nasal cannula. General: Alert, Oriented x3, Cooperative, No apparent distress, - - Appears older than stated age. Morbidly obese. HEENT: Atraumatic, PERRLA, EOMI, Normocephalic, - - No scleral icterus or injection noted. Oral: Moist Mucosa, No Gingival or Mucosal Lesions/ Ulcerations Neck: Supple, No JVD, No Nodes, Trachea Midline Lungs: No rhonchi, No wheeze, No rales, Diminished Cardiovascular: Regular rate, Regular Rhythm, Normal S1, Normal S2, Murmur, No rub noted, No Gallop Abdomen: Bowel Sounds Present, Soft, Non Tender, Non-Distended, Obese Extremities: No cyanosis, Capillary Refill Less than 3 Seconds, Edema Skin: - - No significant change compared to previous Musculoskeletal: No Tenderness to Palpation of Joints or Extremities Lymphatic: No Cervical, Supraclavicular, or Inguinal Adenopathy Neurological: Cranial nerves II-XII grossly intact, Neuro grossly intact, Motor Exam 5/5 strength throughout Psych/Mental Status: Appropriate, Flat Affect Vital Signs Temp Pulse Resp BP Pulse Ox 36.9 C 82 18 94/54 L 98 09/15/18 02:00 09/15/18 03:21 09/15/18 02:00 09/15/18 02:00 09/15/18 02:00 Oxygen Flow Rate (L/min) 2 Oxygen Delivery Method Nasal Cannula Weight: 138.9 kg Body Mass Index (BMI) 48.9 Finger Stick Blood Glucose 68 Intake and Output for Last 24 Hours 09/13/18 09/14/18 09/15/18 23:59 23:59 23:59 Intake Total 1430 / 1910 540 / 540 Output Total 1400 / 2800 1400 / 1400 Balance 30 / -890 -860 / -860 Labs (Last 48 Hours) 09/13/18 09/13/18 09/13/18 16:52 16:52 16:52 WBC 4.9 RBC 3.16 L Hgb 9.7 L Hct 31.4 L MCV 99.4 H MCH 30.7 MCHC 30.9 L RDW 15.5 H RDW Differential 55.3 H Plt Count 201 MPV 10.2 Immature Gran % (Auto) 0.200 Neut % (Auto) 56.5 Lymph % (Auto) 24.3 [place] % (Auto) 6.9 Eos % (Auto) 11.3 H Baso % (Auto) 0.8 Absolute Neuts (auto) 2.8 Absolute Lymphs (auto) 1.20 Total Counted Not Reportable PT Cancelled INR Cancelled Sodium Cancelled Potassium Cancelled Chloride Cancelled Carbon Dioxide Cancelled Anion Gap Cancelled BUN Cancelled Creatinine Cancelled Estim Creat Clear Calc Cancelled Est GFR (MDRD) Af Amer Cancelled Est GFR (MDRD) Non-Af Cancelled BUN/Creatinine Ratio Cancelled Glucose Cancelled Lactic Acid Calcium Cancelled Total Bilirubin Cancelled AST Cancelled ALT Cancelled Alkaline Phosphatase Cancelled Troponin I Cancelled Total Protein Cancelled Albumin Cancelled Globulin Cancelled Albumin/Globulin Ratio Cancelled Vitamin B12 Hep Bs Antigen 09/13/18 09/13/18 09/13/18 16:52 17:55 17:55 WBC RBC Hgb Hct MCV MCH MCHC RDW RDW Differential Plt Count MPV Immature Gran % (Auto) Neut % (Auto) Lymph % (Auto) [place] % (Auto) Eos % (Auto) Baso % (Auto) Absolute Neuts (auto) Absolute Lymphs (auto) Total Counted PT 19.6 H INR 1.7 Sodium 134 L Potassium 3.5 Chloride 98 Carbon Dioxide 30.0 Anion Gap 6 BUN 20 H Creatinine 6.42 H Estim Creat Clear Calc 9.94 Est GFR (MDRD) Af Amer 11 L Est GFR (MDRD) Non-Af 9 L BUN/Creatinine Ratio 3.1 L Glucose 96 Lactic Acid Calcium 9.4 Total Bilirubin 0.40 AST 23 ALT 11 L Alkaline Phosphatase 124 H Troponin I 0.019 Total Protein 7.6 Albumin 2.9 L Globulin 4.7 H Albumin/Globulin Ratio 0.6 L Vitamin B12 1114 H Hep Bs Antigen 09/13/18 09/14/18 09/14/18 21:05 04:00 04:00 WBC 4.7 RBC 2.83 L Hgb 8.7 L Hct 28.3 L MCV 100.0 H MCH 30.7 MCHC 30.7 L RDW 15.3 H RDW Differential 54.8 H Plt Count 174 MPV 9.5 Immature Gran % (Auto) Neut % (Auto) Lymph % (Auto) [place] % (Auto) Eos % (Auto) Baso % (Auto) Absolute Neuts (auto) Absolute Lymphs (auto) Total Counted PT Cancelled INR Cancelled Sodium Potassium Chloride Carbon Dioxide Anion Gap BUN Creatinine Estim Creat Clear Calc Est GFR (MDRD) Af Amer Est GFR (MDRD) Non-Af BUN/Creatinine Ratio Glucose Lactic Acid 0.9 Calcium Total Bilirubin AST ALT Alkaline Phosphatase Troponin I Total Protein Albumin Globulin Albumin/Globulin Ratio Vitamin B12 Hep Bs Antigen 09/14/18 09/14/18 09/14/18 04:00 04:15 16:05 WBC RBC Hgb Hct MCV MCH MCHC RDW RDW Differential Plt Count MPV Immature Gran % (Auto) Neut % (Auto) Lymph % (Auto) [place] % (Auto) Eos % (Auto) Baso % (Auto) Absolute Neuts (auto) Absolute Lymphs (auto) Total Counted PT 22.3 H INR 2.0 Sodium 137 Potassium 3.4 L Chloride 100 Carbon Dioxide 29.0 Anion Gap 8 BUN 23 H Creatinine 6.88 H Estim Creat Clear Calc 9.27 Est GFR (MDRD) Af Amer 10 L Est GFR (MDRD) Non-Af 9 L BUN/Creatinine Ratio 3.3 L Glucose 94 Lactic Acid Calcium 8.8 Total Bilirubin AST ALT Alkaline Phosphatase Troponin I Total Protein Albumin Globulin Albumin/Globulin Ratio Vitamin B12 Hep Bs Antigen Pending 09/15/18 09/15/18 03:40 03:40 WBC 5.5 RBC 3.03 L Hgb 9.2 L Hct 30.2 L MCV 99.7 H MCH 30.4 MCHC 30.5 L RDW 15.0 H RDW Differential 50.5 H Plt Count 149 L MPV 9.6 Immature Gran % (Auto) 0.200 Neut % (Auto) 71.7 H Lymph % (Auto) 14.[address] [place] % (Auto) 5.2 Eos % (Auto) 8.1 H Baso % (Auto) 0.5 Absolute Neuts (auto) 4.0 Absolute Lymphs (auto) 0.79 L Total Counted Not Reportable PT INR Sodium 137 Potassium 3.6 Chloride 101 Carbon Dioxide 29.0 Anion Gap 7 BUN 13 Creatinine 4.36 H Estim Creat Clear Calc 14.63 Est GFR (MDRD) Af Amer 17 L Est GFR (MDRD) Non-Af 14 L BUN/Creatinine Ratio 3.0 L Glucose 108 H Lactic Acid Calcium 8.0 L Total Bilirubin AST ALT Alkaline Phosphatase Troponin I Total Protein Albumin Globulin Albumin/Globulin Ratio Vitamin B12 Hep Bs Antigen Medical Necessity - Tobacco Use Smoking Status: Never smoker Assessment/Plan All Active Problems (Last Reviewed 09/13/18 @ 20:17 by Stew Aldrich MD) Problem with dialysis access (Acute) Acute encephalopathy (Acute) Hypotension (Acute) Shock (Acute) Acute respiratory failure (Acute) Diarrhea (Resolved) Hemorrhage of arteriovenous fistula (Resolved) Finger necrosis (Resolved) Yeast dermatitis (Acute) Enterococcal bacteremia (Resolved) RECOMMENDATIONS: 1. Transition midodrine to daily 2. Hemodialysis today 3. Okay to discharge from my perspective 4. Therapeutic substitution for COPD inhaler, can resume baseline inhaler therapy at discharge 5. Wean oxygen as tolerated IMPRESSIONS: 1. Acute encephalopathy secondary to hypotension Improvement in hypotension following hemodialysis would suggest the patient was on the far side of his Starling curve. Patient's blood pressure is improved with removal of 1.4 L with hemodialysis. Patient's mentation appears to be at baseline. No complaints at this time. Patient is not showing any signs or symptoms of sepsis at this time. Respiratory status appears to be at baseline. 2. End-stage renal disease Today is a routine hemodialysis day. Nephrology has been consulted. Continue with dietary modification and Nephrocaps as indicated. Okay to discharge from my perspective 3. Paroxysmal A. fib Patient appears to be in a sinus rhythm at this time. Patient's Coumadin is therapeutic at this time. Patient does take metoprolol at baseline, but this is been held secondary to #1. Heart rate appears to be controlled without baseline metoprolol. 4. COPD/morbid obesity/restless legs/multiple allergies/poor historian Complicates care, management, recovery and prognosis. Patient does not appear to be in an acute exacerbation of COPD at this time. Therapeutic substitution would be appropriate. Wean oxygen as tolerated. Patient can be transitioned back to baseline COPD medications at discharge Code Visit Inpatient E&M: 21823 Subs Hosp L2
[2018-09-15] MEDS: Ipratropium/Albuterol Sulfate 3 ML AMPUL.NEB INHALATION ×3 (06:53→18:29)
[2018-09-15] MEDS: Budesonide Respules 0.5 MG/2 ML AMPUL.NEB. INHALATION ×2 (06:53→18:29)
[2018-09-15] MEDS: Ferrous Sulfate 325 MG Tablet PO ×2 (09:32→16:58)
[2018-09-15] MEDS: Pantoprazole Sodium 40 MG Tablet PO (09:33)
[2018-09-15] MEDS: Calcium Acetate 667 MG Capsule 1334 MG PO ×2 (09:33→16:59)
[2018-09-15] MEDS: Escitalopram Oxalate 10 MG Tablet PO (09:33)
[2018-09-15] MEDS: Gabapentin 300 MG Capsule PO (09:33)
[2018-09-15] MEDS: Docusate Sodium 100 MG Capsule PO (09:33)
[2018-09-15] MEDS: Midodrine HCl 5 MG Tablet 10 MG PO (09:34)
[2018-09-15] MEDS: Folic Acid/Vitamin B Comp W-C 1 Capsule 1 CAP PO (09:34)
[2018-09-15] MEDS: Cholestyramine/Sucrose 4 GM/PACKET PO ×2 (09:34→22:31)
[2018-09-15 09:38] LABS: Hepatitis B Surface Antigen Non-Reactive (Nonreactive)
--- NOTE | 2018-09-15 09:41 | CT_ITS ---
CT of the left upper extremity INDICATION: Left forearm fistula, pain TECHNIQUE: CT of the left arm was performed in the axial projection scanning from the elbow to the wrist without contrast followed by sagittal and coronal reconstructions. Radiographic technique was optimized to limit patient radiation dose. DLP was 708.11 FINDINGS: There are surgical clips seen within the soft tissues. There is no focal mass or fluid collection. Bony structures are diffusely osteopenic. There is no evidence for acute fracture. No lytic destructive changes are seen to suggest presence of acute osteomyelitis. Diffuse arterial calcification is seen throughout the visualized portions of the united [place] radial and ulnar arteries. Arteriovenous fistula is noted along the lateral aspect of the radial shaft. There is diffuse vascular calcification noted. There is a heterogeneous appearance to the contents of the fistula suggesting intraluminal thrombus. Would recommend Doppler sonogram for further assessment CT/Extremity Upper without Contra IMPRESSION: Findings consistent with known arteriovenous fistula with heterogeneous appearance to intravascular content suggesting possible thrombus. This may be better assessed with CTA or Doppler ultrasound if clinically warranted. No evidence for fracture or osteomyelitis. Electronically Signed: Freddy Decker MD at 17:07 EDT , Service support ,
--- NOTE | 2018-09-15 09:43 | PCM.PN.HOSP ---
Patient Problems: Active and Suspected Problems (Last Reviewed 09/13/18 @ 20:17 by Stew Aldrich MD) Acute encephalopathy (Acute) Hypotension (Acute) Subjective: Complains of pain and drainage in the left upper extremity fistula. Stated that the symptoms began yesterday. States that recently he had bleeding from his fistula and [place], it was actually [facility] on August 31. Vitals/I&O's: Vital Signs Temp Pulse Resp BP Pulse Ox 36.6 C 83 18 121/35 H 100 09/15/18 08:00 09/15/18 08:00 09/15/18 08:00 09/15/18 08:00 09/15/18 08:00 Oxygen Flow Rate (L/min) 2 Oxygen Delivery Method Nasal Cannula Weight: 138.9 kg Body Mass Index (BMI) 48.9 Finger Stick Blood Glucose 68 Intake and Output for Last 24 Hours 09/13/18 09/14/18 09/15/18 23:59 23:59 23:59 Intake Total 1430 / 1910 540 / 540 Output Total 1400 / 2800 1400 / 1400 Balance 30 / -890 -860 / -860 General: Alert, No apparent distress HEENT: Atraumatic, Normocephalic Oral: Moist Mucosa, No Gingival or Mucosal Lesions/ Ulcerations Neck: No Nodes, Thyroid Normal Size and Texture Lungs: Clear to auscultation, Normal air movement, No rhonchi, No wheeze, No rales, Diminished Cardiovascular: Regular rate, Regular Rhythm, Normal S1, Normal S2 Abdomen: Bowel Sounds Present, Soft, Non Tender, Non-Distended, Obese Extremities: Tenderness - at LUE fistula and distally. no surrounding erythema. Skin: - - superficial wound on LUE fistula. clean-based. Musculoskeletal: No Tenderness to Palpation of Joints or Extremities, No Muscle Wasting Neurological: Sensory exam intact to light touch and pain, Coordination normal Psych/Mental Status: Normal Affect, Anxious Laboratory Results 09/13/18 16:52: Vitamin B12 1114 H 09/14/18 16:05: Hep Bs Antigen Non-Reactive 09/15/18 03:40: WBC 5.5, RBC 3.03 L, Hgb 9.2 L, Hct 30.2 L, MCV 99.7 H, MCH 30.4, MCHC 30.5 L, RDW 15.0 H, RDW Differential 50.5 H, Plt Count 149 L, MPV 9.6, Immature Gran % (Auto) 0.200, Neut % (Auto) 71.7 H, Lymph % (Auto) 14.3 L, [place] % (Auto) 5.2, Eos % (Auto) 8.1 H, Baso % (Auto) 0.5, Absolute Neuts (auto) 4.0, Absolute Lymphs (auto) 0.79 L, Total Counted Not Reportable 09/15/18 03:40: Sodium 137, Potassium 3.6, Chloride 101, Carbon Dioxide 29.0, Anion Gap 7, BUN 13, Creatinine 4.36 H, Estim Creat Clear Calc 14.63, Est GFR (MDRD) Af Amer 17 L, Est GFR (MDRD) Non-Af 14 L, BUN/Creatinine Ratio 3.0 L, Glucose 108 H, Calcium 8.0 L Current Medications Acetaminophen (Tylenol) 650 mg PO Q6H PRN PRN PRN Reason: Mild pain 1-3/Temp > 100.7 F Last Admin: 09/13/18 21:39 Dose: 650 mg Documented by: Al Hydroxide/Mg Hydroxide (Mylanta Ii) 30 ml PO Q4H PRN PRN PRN Reason: INDEGESTION Albuterol Sulfate (Ventolin Aerosols) 2.5 mg INHALATION Q2H PRN PRN Reason: sob/wheezing Albuterol/Ipratropium (Duoneb) 3 ml INHALATION Q6HWA.RT [facility] Last Admin: 09/15/18 06:53 Dose: 3 ml Documented by: Bisacodyl (Dulcolax) 10 mg RECTAL DAILY PRN PRN PRN Reason: Constipation Budesonide (Pulmicort Aerosol) 0.5 mg INHALATION Q12H.RT [facility] Last Admin: 09/15/18 06:53 Dose: 0.5 mg Documented by: Calcium Acetate (Phoslo Gel Cap) 1,334 mg PO TIDCM [facility] Last Admin: 09/15/18 09:33 Dose: 1,334 mg Documented by: Cholestyramine Resin (Questran 4gm Packet) 4 gm PO BID [facility] Last Admin: 09/15/18 09:34 Dose: 4 gm Documented by: Dextrose (D50w Syringe) 0 gm IV X1 PRN; Protocol PRN Reason: Hypoglycemia Docusate Sodium (Colace) 100 mg PO DAILY [facility] Last Admin: 09/15/18 09:33 Dose: 100 mg Documented by: Escitalopram Oxalate (Lexapro) 10 mg PO DAILY [facility] Last Admin: 09/15/18 09:33 Dose: 10 mg Documented by: Ferrous Sulfate (Ferrous Sulfate) [facility] Last Admin: 09/15/18 09:32 Dose: 325 mg Documented by: Gabapentin (Neurontin) 300 mg PO DAILY [facility] Last Admin: 09/15/18 09:33 Dose: 300 mg Documented by: Glucagon () 1 mg IM .X1 PRN PRN Reason: Hypoglycemia Guaifenesin (Robitussin) 10 ml PO Q4H PRN PRN PRN Reason: COUGH Loperamide HCl (Imodium) 2 mg PO Q6H PRN PRN PRN Reason: Diarrhea Magnesium Hydroxide (Milk Of Magnesia) 30 ml PO DAILY PRN PRN PRN Reason: Constipation Melatonin (Melatonin) 3 mg PO QHS PRN PRN PRN Reason: INSOMNIA Midodrine (Proamatine) 10 mg PO MoWeFr@1000 [facility] Last Admin: 09/15/18 09:34 Dose: 10 mg Documented by: Multivit/Ca Carb/B Cmplx/FA/Prenat (Nephrocaps, Renaphro) 1 capsule [facility] Last Admin: 09/15/18 09:34 Dose: 1 capsule Documented by: Nystatin (Mycostatin Powder) 1 applic TOPICAL BID [facility]; Protocol Last Admin: 09/14/18 21:07 Dose: 1 applicatio Documented by: Ondansetron HCl (Zofran) 4 mg IV Q8H PRN PRN PRN Reason: NAUSEA/VOMITING Ondansetron HCl (Zofran Odt) 4 mg PO Q6H PRN PRN PRN Reason: NAUSEA Pantoprazole Sodium (Protonix) 40 mg PO DAILY [facility] Last Admin: 09/15/18 09:33 Dose: 40 mg Documented by: Pramipexole Dihydrochloride (Mirapex) 0.5 mg PO QHS [facility] Last Admin: 09/14/18 21:06 Dose: 0.5 mg Documented by: Sodium Biphosphate/Sodium Phosphate (Fleet Enema) 1 bottle RECTAL DAILY PRN PRN PRN Reason: Constipation Sodium Chloride () 10 - 40 ml IV UD PRN PRN Reason: SALINE FLUSH Last Admin: 09/15/18 03:39 Dose: 10 ml Documented by: Warfarin Sodium (Coumadin (Pbkc)) 2 mg PO SuMoWeFr@1700 [facility] Last Admin: 09/14/18 20:11 Dose: 2 mg Documented by: Warfarin Sodium (Coumadin (Pbkc)) 3 mg PO TuThSa@1700 [facility] Medical Necessity - Tobacco Use Smoking Status: Never smoker Assessment/Plan All Active Problems (Last Reviewed 09/13/18 @ 20:17 by Stew Aldrich MD) Problem with dialysis access (Acute) Acute encephalopathy (Acute) Hypotension (Acute) Shock (Acute) Acute respiratory failure (Acute) Diarrhea (Resolved) Hemorrhage of arteriovenous fistula (Resolved) Finger necrosis (Resolved) Yeast dermatitis (Acute) Enterococcal bacteremia (Resolved) 1. Hypotension Transient and resolved Unclear etiology has that was not on his typical dialysis day Work-up thus far has been unremarkable 2. fistula wound had bleeding from fistula and required transfer to [facility] on 08/31 clean-based wound check records from [facility] fistula not being accessed currently given the tenderness, will check non-contrast CT 3. Metabolic encephalopathy Likely trivial to the hypotensive episode Currently resolved Monitor for now 3. End-stage renal disease Nephrology following HD MWF via tunnelled catheter. 4. Paroxysmal atrial fibrillation Anticoagulated on Coumadin check INR today 5. VTE prophylaxis: Not indicated as patient is already on Coumadin. Code Visit Inpatient E&M: [id number] [facility] L3
[2018-09-15] MEDS: Nystatin Powder 15gm Bottle 1 APPLIC TOPICAL ×2 (10:23→21:21)
[2018-09-15 10:59] LABS: International Normalized Ratio 2.3; Prothrombin Time (Protime)PT. 25.5 SECONDS (11.7-14.9)
--- NOTE | 2018-09-15 11:11 | PCM.PN.REN ---
Patient Problems: Active and Suspected Problems (Last Reviewed 09/13/18 @ 20:17 by Stew Aldrich MD) Acute encephalopathy (Acute) Hypotension (Acute) Subjective: no new complaints - Physical Exam General: Alert, Oriented x3, Cooperative HEENT: Atraumatic, PERRLA, EOMI, Normocephalic Neck: Supple, No JVD, Negative Carotid Bruits Lungs: Clear to auscultation, Normal air movement Cardiovascular: Regular rate, No murmurs Abdomen: Bowel Sounds Present, Soft, Non Tender Extremities: No edema, Capillary Refill Less than 3 Seconds Skin: No rashes, No breakdown Musculoskeletal: No Tenderness to Palpation of Joints or Extremities Neurological: Cranial nerves II-XII grossly intact Psych/Mental Status: Normal Affect, Appropriate Vital Signs Temp Pulse Resp BP Pulse Ox 97.8 F 83 18 121/35 H 100 09/15/18 08:00 09/15/18 08:00 09/15/18 08:00 09/15/18 08:00 09/15/18 08:00 Oxygen Flow Rate (L/min) 2 Oxygen Delivery Method Nasal Cannula Weight: 138.9 kg Body Mass Index (BMI) 48.9 Finger Stick Blood Glucose 68 Intake and Output for Last 24 Hours 09/13/18 09/14/18 09/15/18 23:59 23:59 23:59 Intake Total 1430 / 1910 540 / 540 Output Total 1400 / 2800 1400 / 1400 Balance 30 / -890 -860 / -860 Laboratory Tests Past 24 Hrs 09/14/18 09/15/18 09/15/18 16:05 03:40 03:40 WBC 5.5 RBC 3.03 L Hgb 9.2 L Hct 30.2 L MCV 99.7 H MCH 30.4 MCHC 30.5 L RDW 15.0 H RDW Differential 50.5 H Plt Count 149 L MPV 9.6 Immature Gran % (Auto) 0.200 Neut % (Auto) 71.7 H Lymph % (Auto) 14.3 L [place] % (Auto) 5.2 Eos % (Auto) 8.1 H Baso % (Auto) 0.5 Absolute Neuts (auto) 4.0 Absolute Lymphs (auto) 0.79 L Total Counted Not Reportable PT INR Sodium 137 Potassium 3.6 Chloride 101 Carbon Dioxide 29.0 Anion Gap 7 BUN 13 Creatinine 4.36 H Estim Creat Clear Calc 14.63 Est GFR (MDRD) Af Amer 17 L Est GFR (MDRD) Non-Af 14 L BUN/Creatinine Ratio 3.0 L Glucose 108 H Calcium 8.0 L Hep Bs Antigen Non-Reactive 09/15/18 10:30 WBC RBC Hgb Hct MCV MCH MCHC RDW RDW Differential Plt Count MPV Immature Gran % (Auto) Neut % (Auto) Lymph % (Auto) [place] % (Auto) Eos % (Auto) Baso % (Auto) Absolute Neuts (auto) Absolute Lymphs (auto) Total Counted PT Pending INR Pending Sodium Potassium Chloride Carbon Dioxide Anion Gap BUN Creatinine Estim Creat Clear Calc Est GFR (MDRD) Af Amer Est GFR (MDRD) Non-Af BUN/Creatinine Ratio Glucose Calcium Hep Bs Antigen Medical Necessity - Tobacco Use Smoking Status: Never smoker Assessment/Plan All Active Problems (Last Reviewed 09/13/18 @ 20:17 by Stew Aldrich MD) Problem with dialysis access (Acute) Acute encephalopathy (Acute) Hypotension (Acute) Shock (Acute) Acute respiratory failure (Acute) Diarrhea (Resolved) Hemorrhage of arteriovenous fistula (Resolved) Finger necrosis (Resolved) Yeast dermatitis (Acute) Enterococcal bacteremia (Resolved) ESRD. Hemodialysis MWF schedule. Hypotension. Chronic hypotension. Usually requires Midodrine with dialysis. Asymptomatic right now. Blood pressure is acceptable. Anemia. Hemoglobin is acceptable. Access. Right IJ tunneled dialysis catheter. complains of more pain and discharge from AVF site today. CT of upper extremities done, pending read
[2018-09-15] MEDS: Pramipexole Di-HCl 0.5 MG Tablet PO (21:24)
[2018-09-16] VITALS (10 sets, daily range): BP systolic 111–149; BP diastolic 38–50; PULSE 68–89; RESP 17–18; TEMP 36.4–36.6; O2SAT 98–100
[2018-09-16 06:09] LABS: International Normalized Ratio 2.5; Prothrombin Time (Protime)PT. 26.9 SECONDS (11.7-14.9)
[2018-09-16 06:10] LABS: Absolute Lymphocyte Count 0.99 X10^3/ul (0.83-4.51); Basophil# 0.03 X10^3/uL; Basophil% 0.6 % (0-1); Eosinophils% 10.2 % (0-5); Hematocrit 30.1 % (40-54); Hemoglobin 9.1 g/dl (13.0-16.5); Lymphocyte # 0.99 X10^3/ul (4.0); Lymphocyte % 20.2 % (19-41); Mean Corp Hgb Conc 30.2 g/gl (32-36); Mean Corpuscular Hgb 30.1 pg (27.0-32.0); Mean Corpuscular Volume 99.7 fL (80-94); Mean Platelet Vol. 9.8 fl (6.2-12.0); Monocyte# 0.38 X10^3/uL; Monocyte% 7.8 % (0-10); Neutrophil # 2.99 X10^3/uL (2.7-7.7); Neutrophil % 61.2 % (47-70); POSITIVE COUNT NO; POSITIVE DIFFERENTIAL NO; POSITIVE MORPHOLOGY NO; Platelet Count 128 K/mm3 (150-450); RBC Distribution Width CV 15.7 % (11.6-14.6); RBC Distribution Width SD 56.7 fl (35.1-43.9); Red Blood Count 3.02 M/mm3 (4.6-6.2); White Blood Count 4.9 K/mm3 (4.4-11.0)
[2018-09-16 06:17] LABS: Anion Gap 8 (5-15); BUN 23 mg/dL (7-18); BUN/Creat Ratio 3.7 RATIO (10-20); Calcium,Total 8.5 mg/dL (8.5-10.1); Chloride 99 mmol/L (98-107); Creatinine, Serum 6.16 mg/dL (0.70-1.30); EST Glomerular Filtration Rate 10 mL/min (>60); Est Glom Filt Rate - Afr Amer 12 mL/min (>60); Estimated Creatinine Clearance 10.36 ml/min; Glucose 110 mg/dL (74-106); Potassium 3.9 mmol/L (3.5-5.1); Sodium Level 134 mmol/L (136-145)
[2018-09-16] MEDS: Ipratropium/Albuterol Sulfate 3 ML AMPUL.NEB INHALATION (06:54)
[2018-09-16] MEDS: Budesonide Respules 0.5 MG/2 ML AMPUL.NEB. INHALATION (06:54)
--- NOTE | 2018-09-16 09:37 | CASEMGMT ---
CLARA faxed updates to [facility]. Yandy JASSO APPRENTICE COOK
--- NOTE | 2018-09-16 12:13 | DIALYSIS ---
Hemodialysis x 4hrs today. Patient tolerated tx well hypotensive throughout tx. UF -2000mL removed. Pt stable and alert. Report to IMAN Kruse.
--- NOTE | 2018-09-16 13:12 | PN_ITS ---
Subjective: Patient transferred from the intensive care unit yesterday. Patient continues to report left arm pain, but states it is no change compared to yesterday. Patient was able to tolerate hemodialysis and work with physical therapy today. Patient denied any orthostatic type symptoms. General: Alert, Oriented x3, Cooperative, No apparent distress, - - Morbidly obese. Speaking in full sentences. Nasal cannula in place. HEENT: Atraumatic, PERRLA, EOMI, Normocephalic, - - No scleral icterus or inj ection noted. Oral: Moist Mucosa, No Gingival or Mucosal Lesions/ Ulcerations Neck: Supple, No JVD, No Nodes, Trachea Midline Lungs: No rhonchi, No wheeze, Diminished, Rales - Bilateral bases posteriorly, - - Symmetric expansion Cardiovascular: Normal S1, Normal S2, No murmurs, Irregular Rate, No rub noted, No Gallop Abdomen: Bowel Sounds Present, Soft, Non Tender, Non-Distended, Obese Extremities: No cyanosis, Clubbing, Edema Skin: - - No change from previous Musculoskeletal: No Tenderness to Palpation of Joints or Extremities Lymphatic: No Cervical, Supraclavicular, or Inguinal Adenopathy Neurological: Cranial nerves II-XII grossly intact, Neuro grossly intact, Motor Exam 5/5 strength throughout Psych/Mental Status: Alert and oriented to time, place, person, mood and affect Vital Signs Temp Pulse Resp BP Pulse Ox 36.4 C L 82 18 149/50 H 99 09/16/18 05:20 09/16/18 07:11 09/16/18 06:54 09/16/18 05:20 09/16/18 06:54 Oxygen Flow Rate (L/min) 2 Oxygen Delivery Method Nasal Cannula Weight: 138.6 kg Body Mass Index (BMI) 48.9 Finger Stick Blood Glucose 68 Intake and Output for Last 24 Hours 09/14/18 09/15/18 09/16/18 23:59 23:59 23:59 Intake Total 1430 / 1910 1620 / 1620 0 / 0 Output Total 1400 / 2800 1400 / 1400 Balance 30 / -890 220 / 220 0 / 0 Labs (Last 48 Hours) 09/14/18 09/15/18 09/15/18 16:05 03:40 03:40 WBC 5.5 RBC 3.03 L Hgb 9.2 L Hct 30.2 L MCV 99.7 H MCH 30.4 MCHC 30.5 L RDW 15.0 H RDW Differential 50.5 H Plt Count 149 L MPV 9.6 Immature Gran % (Auto) 0.200 Neut % (Auto) 71.7 H Lymph % (Auto) 14.3 L [place] % (Auto) 5.2 Eos % (Auto) 8.1 H Baso % (Auto) 0.5 Absolute Neuts (auto) 4.0 Absolute Lymphs (auto) 0.79 L Total Counted Not Reportable PT INR Sodium 137 Potassium 3.6 Chloride 101 Carbon Dioxide 29.0 Anion Gap 7 BUN 13 Creatinine 4.36 H Estim Creat Clear Calc 14.63 Est GFR (MDRD) Af Amer 17 L Est GFR (MDRD) Non-Af 14 L BUN/Creatinine Ratio 3.0 L Glucose 108 H Calcium 8.0 L Hep Bs Antigen Non-Reactive 09/15/18 09/16/18 09/16/18 10:30 05:45 05:45 WBC 4.9 RBC 3.02 L Hgb 9.1 L Hct 30.1 L MCV 99.7 H MCH 30.1 MCHC 30.2 L RDW 15.7 H RDW Differential 56.7 H Plt Count 128 L MPV 9.8 Immature Gran % (Auto) 0.000 Neut % (Auto) 61.2 Lymph % (Auto) 20.2 [place] % (Auto) 7.8 Eos % (Auto) 10.2 H Baso % (Auto) 0.6 Absolute Neuts (auto) 3.0 Absolute Lymphs (auto) 0.99 Total Counted Not Reportable PT 25.5 H INR 2.3 Sodium 134 L Potassium 3.9 Chloride 99 Carbon Dioxide 27.0 Anion Gap 8 BUN 23 H Creatinine 6.16 H Estim Creat Clear Calc 10.36 Est GFR (MDRD) Af Amer 12 L Est GFR (MDRD) Non-Af 10 L BUN/Creatinine Ratio 3.7 L Glucose 110 H Calcium 8.5 Hep Bs Antigen 09/16/18 05:45 WBC RBC Hgb Hct MCV MCH MCHC RDW RDW Differential Plt Count MPV Immature Gran % (Auto) Neut % (Auto) Lymph % (Auto) [place] % (Auto) Eos % (Auto) Baso % (Auto) Absolute Neuts (auto) Absolute Lymphs (auto) Total Counted PT 26.9 H INR 2.5 Sodium Potassium Chloride Carbon Dioxide Anion Gap BUN Creatinine Estim Creat Clear Calc Est GFR (MDRD) Af Amer Est GFR (MDRD) Non-Af BUN/Creatinine Ratio Glucose Calcium Hep Bs Antigen Microbiology 09/15/18 10:30 Wound - Left Forearm Gram Stain - Final Clinical Impression(s) from Imaging Studies Upper Extremity CT 09/15/18 09:41 IMPRESSION: Findings consistent with known arteriovenous fistula with heterogeneous appearance to intravascular content suggesting possible thrombus. This may be better assessed with CTA or Doppler ultrasound if clinically warranted. No evidence for fracture or osteomyelitis. Electronically Signed: Freddy Dceker MD at 17:07 EDT , Service support , Medical Necessity - Tobacco Use Smoking Status: Never smoker Assessment/Plan All Active Problems (Last Reviewed 09/13/18 @ 20:17 by Stew Aldrich MD) Problem with dialysis access (Acute) Acute encephalopathy (Acute) Hypotension (Acute) Shock (Acute) Acute respiratory failure (Acute) Diarrhea (Resolved) Hemorrhage of arteriovenous fistula (Resolved) Finger necrosis (Resolved) Yeast dermatitis (Acute) Enterococcal bacteremia (Resolved) RECOMMENDATIONS: 1. Continue midodrine daily 2. Hemodialysis today 3. Okay to discharge from my perspective 4. Therapeutic substitution for COPD inhaler, can resume baseline inhaler therapy at discharge 5. Wean oxygen as tolerated IMPRESSIONS: 1. Acute encephalopathy secondary to hypotension Improvement in hypotension following hemodialysis would suggest the patient was on the far side of his [place] curve. Patient's blood pressure is improved with fluid removal with hemodialysis. Patient's mentation appears to be at baseline. No complaints at this time. Patient is not showing any signs or symptoms of sepsis at this time. Respiratory status appears to be at baseline. Patient is also reporting no orthostatic type symptoms. 2. End-stage renal disease Today is a routine hemodialysis day. Nephrology has been consulted. Continue with dietary modification and Nephrocaps as indicated. Okay to discharge from my perspective 3. Paroxysmal A. fib Patient appears to be in a sinus rhythm at this time. Patient's Coumadin is therapeutic at this time. Patient does take metoprolol at baseline, but this is been held secondary to #1. Heart rate appears to be controlled without baseline metoprolol. 4. COPD/morbid obesity/restless legs/multiple allergies/poor historian Complicates care, management, recovery and prognosis. Patient does not appear to be in an acute exacerbation of COPD at this time. Therapeutic substitution would be appropriate. Wean oxygen as tolerated. Patient can be transitioned back to baseline COPD medications at discharge Code Visit Inpatient E&M: 76643 Subs Hosp L2
[2018-09-16] MEDS: Ferrous Sulfate 325 MG Tablet PO ×2 (13:35→17:12)
[2018-09-16] MEDS: Folic Acid/Vitamin B Comp W-C 1 Capsule 1 CAP PO (13:35)
[2018-09-16] MEDS: Gabapentin 300 MG Capsule PO (13:35)
[2018-09-16] MEDS: Calcium Acetate 667 MG Capsule 1334 MG PO ×2 (13:35→17:12)
[2018-09-16] MEDS: Escitalopram Oxalate 10 MG Tablet PO (13:35)
[2018-09-16] MEDS: Pantoprazole Sodium 40 MG Tablet PO (13:35)
[2018-09-16] MEDS: Nystatin Powder 15gm Bottle 1 APPLIC TOPICAL (13:36)
[2018-09-16] MEDS: Cholestyramine/Sucrose 4 GM/PACKET PO (13:39)
--- NOTE | 2018-09-16 14:03 | PCM.PN.HOSP ---
Patient Problems: Active and Suspected Problems (Last Reviewed 09/13/18 @ 20:17 by Stew Aldrich MD) Acute encephalopathy (Acute) Hypotension (Acute) Subjective: No new events. Still with pain in LUE. DW wound care--wound is clean based Vitals/I&O's: Vital Signs Temp Pulse Resp BP Pulse Ox 36.6 C 79 17 111/49 L 98 09/16/18 11:20 09/16/18 11:20 09/16/18 11:20 09/16/18 11:20 09/16/18 11:20 Oxygen Flow Rate (L/min) 2 Oxygen Delivery Method Nasal Cannula Weight: 138.6 kg Body Mass Index (BMI) 48.9 Finger Stick Blood Glucose 68 Intake and Output for Last 24 Hours 09/14/18 09/15/18 09/16/18 23:59 23:59 23:59 Intake Total 1430 / 1910 1620 / 1620 0 / 0 Output Total 1400 / 2800 1400 / 1400 0 / 0 Balance 30 / -890 220 / 220 0 / 0 General: Alert, No apparent distress HEENT: Atraumatic, Normocephalic Oral: Moist Mucosa, No Gingival or Mucosal Lesions/ Ulcerations Neck: No Nodes, Thyroid Normal Size and Texture Lungs: Clear to auscultation, Normal air movement, No rhonchi, No wheeze, No rales Cardiovascular: Regular rate, Regular Rhythm, Normal S1, Normal S2, No murmurs Abdomen: Bowel Sounds Present, Soft, Non Tender, Non-Distended, Obese Extremities: - - LUE TTP. Bandaged--did not remove. Psych/Mental Status: Normal Affect Microbiology Past 72 Hours 09/15/18 10:30 Wound - Left Forearm Gram Stain - Final Laboratory Results 09/16/18 05:45: WBC 4.9, RBC 3.02 L, Hgb 9.1 L, Hct 30.1 L, MCV 99.7 H, MCH 30.1, MCHC 30.2 L, RDW 15.7 H, RDW Differential 56.7 H, Plt Count 128 L, MPV 9.8, Immature Gran % (Auto) 0.000, Neut % (Auto) 61.2, Lymph % (Auto) 20.2, [place] % (Auto) 7.8, Eos % (Auto) 10.2 H, Baso % (Auto) 0.6, Absolute Neuts (auto) 3.0, Absolute Lymphs (auto) 0.99, Total Counted Not Reportable 09/16/18 05:45: Sodium 134 L, Potassium 3.9, Chloride 99, Carbon Dioxide 27.0, Anion Gap 8, BUN 23 H, Creatinine 6.16 H, Estim Creat Clear Calc 10.36, Est GFR (MDRD) Af Amer 12 L, Est GFR (MDRD) Non-Af 10 L, BUN/Creatinine Ratio 3.7 L, Glucose 110 H, Calcium 8.5 09/16/18 05:45: PT 26.9 H, INR 2.5 Current Medications Acetaminophen (Tylenol) 650 mg PO Q6H PRN PRN PRN Reason: Mild pain 1-3/Temp > 100.7 F Last Admin: 09/13/18 21:39 Dose: 650 mg Documented by: Al Hydroxide/Mg Hydroxide (Mylanta Ii) 30 ml PO Q4H PRN PRN PRN Reason: INDEGESTION Albuterol Sulfate (Ventolin Aerosols) 2.5 mg INHALATION Q2H PRN PRN Reason: sob/wheezing Albuterol/Ipratropium (Duoneb) 3 ml INHALATION Q6HWA.RT [facility] Last Admin: 09/16/18 12:55 Dose: Not Given Documented by: Bisacodyl (Dulcolax) 10 mg RECTAL DAILY PRN PRN PRN Reason: Constipation Budesonide (Pulmicort Aerosol) 0.5 mg INHALATION Q12H.RT [facility] Last Admin: 09/16/18 06:54 Dose: 0.5 mg Documented by: Calcium Acetate (Phoslo Gel Cap) 1,334 mg PO TIDCM [facility] Last Admin: 09/16/18 13:35 Dose: 1,334 mg Documented by: Cholestyramine Resin (Questran 4gm Packet) 4 gm PO BID [facility] Last Admin: 09/16/18 13:39 Dose: 4 gm Documented by: Dextrose (D50w Syringe) 0 gm IV X1 PRN; Protocol PRN Reason: Hypoglycemia Docusate Sodium (Colace) 100 mg PO DAILY [facility] Last Admin: 09/16/18 13:38 Dose: Not Given Documented by: Escitalopram Oxalate (Lexapro) 10 mg PO DAILY [facility] Last Admin: 09/16/18 13:35 Dose: 10 mg Documented by: Ferrous Sulfate (Ferrous Sulfate) 325 mg PO BIDCM [facility] Last Admin: 09/16/18 13:35 Dose: 325 mg Documented by: Gabapentin (Neurontin) 300 mg PO DAILY [facility] Last Admin: 09/16/18 13:35 Dose: 300 mg Documented by: Glucagon () 1 mg IM .X1 PRN PRN Reason: Hypoglycemia Guaifenesin (Robitussin) 10 ml PO Q4H PRN PRN PRN Reason: COUGH Sodium Chloride () 250 mls @ 15 mls/hr IV .[id number] PRN PRN Reason: SALINE FLUSH Loperamide HCl (Imodium) 2 mg PO Q6H PRN PRN PRN Reason: Diarrhea Magnesium Hydroxide (Milk Of Magnesia) 30 ml PO DAILY PRN PRN PRN Reason: Constipation Melatonin (Melatonin) 3 mg PO QHS PRN PRN PRN Reason: INSOMNIA Midodrine (Proamatine) 10 mg PO MoWeFr@1000 [facility] Last Admin: 09/15/18 09:34 Dose: 10 mg Documented by: Multivit/Ca Carb/B Cmplx/FA/Prenat ([facility]rocaps, [facility]ro) [facility] Last Admin: 09/16/18 13:35 Dose: 1 capsule Documented by: Nystatin (Mycostatin Powder) 1 applic TOPICAL BID [facility]; Protocol Last Admin: 09/16/18 13:36 Dose: 1 applicatio Documented by: Ondansetron HCl (Zofran) 4 mg IV Q8H PRN PRN PRN Reason: NAUSEA/VOMITING Ondansetron HCl (Zofran Odt) 4 mg PO Q6H PRN PRN PRN Reason: NAUSEA Pantoprazole Sodium (Protonix) 40 mg PO DAILY [facility] Last Admin: 09/16/18 13:35 Dose: 40 mg Documented by: Pramipexole Dihydrochloride (Mirapex) 0.5 mg PO QHS [facility] Last Admin: 09/15/18 21:24 Dose: 0.5 mg Documented by: Sodium Biphosphate/Sodium Phosphate (Fleet Enema) 1 bottle RECTAL DAILY PRN PRN PRN Reason: Constipation Sodium Chloride () 10 - 40 ml IV UD PRN PRN Reason: SALINE FLUSH Last Admin: 09/15/18 03:39 Dose: 10 ml Documented by: Warfarin Sodium (Coumadin (Pbkc)) 2 mg PO SuMoWeFr@1700 [facility] Last Admin: 09/14/18 20:11 Dose: 2 mg Documented by: Warfarin Sodium (Coumadin (Pbkc)) 3 mg PO TuThSa@1700 [facility] Last Admin: 09/15/18 16:58 Dose: 3 mg Documented by: Medical Necessity - Tobacco Use Smoking Status: Never smoker Assessment/Plan All Active Problems (Last Reviewed 09/13/18 @ 20:17 by Stew Aldrich MD) Problem with dialysis access (Acute) Acute encephalopathy (Acute) Hypotension (Acute) Shock (Acute) Acute respiratory failure (Acute) Diarrhea (Resolved) Hemorrhage of arteriovenous fistula (Resolved) Finger necrosis (Resolved) Yeast dermatitis (Acute) Enterococcal bacteremia (Resolved) 1. Hypotension Transient and resolved Unclear etiology has that was not on his typical dialysis day Work-up thus far has been unremarkable 2. fistula wound had bleeding from fistula and required transfer to [facility] on 08/31 clean-based wound CT showed thrombosis reviewed [facility] records: due to hemorrhaging bleeding pseudoaneurysm: patient had ligation of multiple areas and the venous end, pseudoaneurysm was excised. wound culture on 09/[address] Royal about the case. He reviewed the CT, no surgery necessary for the thrombosis. 3. Metabolic encephalopathy Likely trivial to the hypotensive episode Currently resolved Monitor for now 3. End-stage renal disease Nephrology following HD MWF via tunnelled catheter. 4. Paroxysmal atrial fibrillation Anticoagulated on Coumadin check INR today 5. VTE prophylaxis: Not indicated as patient is already on Coumadin. Greater than 40 minutes of which greater than 50% time was reviewing records from outside hospital, discussing with Dr. Royal here about the surgery the patient recently and in about further recommendations about the thrombosis.
--- NOTE | 2018-09-16 14:09 | PCM.PN.REN ---
Patient Problems: Active and Suspected Problems (Last Reviewed 09/13/18 @ 20:17 by Stew Aldrich MD) Acute encephalopathy (Acute) Hypotension (Acute) Subjective: No complaints today No nausea No vomiting. No SOB Tolerated HD session well earlier today with 2L UF - Physical Exam General: Alert, Oriented x3 HEENT: Atraumatic Oral: Moist Mucosa Neck: Supple, No JVD Lungs: Clear to auscultation, Normal air movement, No rhonchi, No wheeze Cardiovascular: Regular rate, Regular Rhythm, Normal S1, Normal S2 Abdomen: Bowel Sounds Present, Soft, Non Tender Extremities: No clubbing, No cyanosis, Edema - +1 edema of LE Musculoskeletal: No Tenderness to Palpation of Joints or Extremities Lymphatic: No Cervical, Supraclavicular, or Inguinal Adenopathy Neurological: Cranial nerves II-XII grossly intact, Neuro grossly intact Psych/Mental Status: Appropriate Vital Signs Temp Pulse Resp BP Pulse Ox 97.8 F 79 17 111/49 L 98 09/16/18 11:20 09/16/18 11:20 09/16/18 11:20 09/16/18 11:20 09/16/18 11:20 Oxygen Flow Rate (L/min) 2 Oxygen Delivery Method Nasal Cannula Weight: 138.6 kg Body Mass Index (BMI) 48.9 Finger Stick Blood Glucose 68 Intake and Output for Last 24 Hours 09/14/18 09/15/18 09/16/18 23:59 23:59 23:59 Intake Total 1430 / 1910 1620 / 1620 0 / 0 Output Total 1400 / 2800 1400 / 1400 0 / 0 Balance 30 / -890 220 / 220 0 / 0 Microbiology Past 72 Hours 09/15/18 10:30 Gram Stain - Final Wound - Left Forearm Laboratory Tests Past 24 Hrs 09/16/18 09/16/18 09/16/18 05:45 05:45 05:45 WBC 4.9 RBC 3.02 L Hgb 9.1 L Hct 30.1 L MCV 99.7 H MCH 30.1 MCHC 30.2 L RDW 15.7 H RDW Differential 56.7 H Plt Count 128 L MPV 9.8 Immature Gran % (Auto) 0.000 Neut % (Auto) 61.2 Lymph % (Auto) 20.2 [place] % (Auto) 7.8 Eos % (Auto) 10.2 H Baso % (Auto) 0.6 Absolute Neuts (auto) 3.0 Absolute Lymphs (auto) 0.99 Total Counted Not Reportable PT 26.9 H INR 2.5 Sodium 134 L Potassium 3.9 Chloride 99 Carbon Dioxide 27.0 Anion Gap 8 BUN 23 H Creatinine 6.16 H Estim Creat Clear Calc 10.36 Est GFR (MDRD) Af Amer 12 L Est GFR (MDRD) Non-Af 10 L BUN/Creatinine Ratio 3.7 L Glucose 110 H Calcium 8.5 Medical Necessity - Tobacco Use Smoking Status: Never smoker Assessment/Plan All Active Problems (Last Reviewed 09/13/18 @ 20:17 by Stew Aldrich MD) Problem with dialysis access (Acute) Acute encephalopathy (Acute) Hypotension (Acute) Shock (Acute) Acute respiratory failure (Acute) Diarrhea (Resolved) Hemorrhage of arteriovenous fistula (Resolved) Finger necrosis (Resolved) Yeast dermatitis (Acute) Enterococcal bacteremia (Resolved) ESRD. Hemodialysis MWF schedule. HD session today Hypotension. Chronic hypotension. Usually requires Midodrine with dialysis. Asymptomatic right now. Blood pressure is acceptable. Anemia. Hemoglobin is acceptable. Access. Right IJ tunneled dialysis catheter. BMD: continue Phoslo with meals. Renal team will continue to follow Abida Ford MD
--- NOTE | 2018-09-16 14:21 | PCM.TXEXTCAR ---
- Diet 09/14/18 09:16 Diet: Cardiac: Carb-Controlled Is pt able to select menu?: Yes - Routine Orders/Code Status Routine Lab Work: CBC - every Friday, BMP - every Friday, INR - every Friday and Code Status: Full Code - Wound(s) LFA Fistula Site Wound Type: healing dehisced surgical incision Dressing Change: Dry Sterile Dressing Rt Groin Wound Type: Puncture Left Groin Wound Type: Puncture - Therapies Physical Therapy: Eval and Treat Occupational Therapy: Eval and Treat - Allergies/Procedures Done in Hospital Allergies/Adverse Reactions: Allergies mirtazapine [From Remeron] Allergy (Verified 09/13/18 16:40) forgetful, doesn't remember anything Sulfa (Sulfonamide Antibiotics) Allergy (Verified 09/13/18 16:40) bleeding from kidneys aspirin Adverse Reaction (Verified 09/13/18 16:40) Nausea oxycodone HCl [From Percodan] Adverse Reaction (Verified 09/13/18 16:40) Nausea oxycodone terephthalate [From Percodan] Adverse Reaction (Verified 09/13/18 16:40) Nausea - Type of Care/Length of Stay Estimated LOS: Convalescent Care Less Than 30 days Type of Care Needed: Skilled Rehab Potential: Fair Prognosis: Fair - Additional Orders/Day of Discharge Day of Discharge: 09/16/18 - Dietary and Speech Recommendations Dietitian Recommendations/Changes: Recommend CHO Control, Cardiac / low sodium diet w/ fluid restriction as indicated - Follow Up Care Primary Care Physician: Heraclio Whitehead MD [Primary Care Provider] - Within 2 Weeks Please Follow Up With: [facility] When: [place]
--- NOTE | 2018-09-16 14:23 | PCM.DC.SUM ---
Discharge Date and Diagnosis - Problem List Patient Problems: Active and Suspected Problems (Last Reviewed 09/13/18 @ 20:17 by Stew Aldrich MD) Acute encephalopathy (Acute) Hypotension (Acute) Date of Admission: 09/13/18 Date of Discharge: 09/16/18 - Primary Discharge Diagnosis Active and Suspected Problems (Last Reviewed 09/13/18 @ 20:17 by Stew Aldrich MD) Acute encephalopathy (Acute) Hypotension (Acute) 1. Hypotension Transient and resolved Unclear etiology has that was not on his typical dialysis day Work-up thus far has been unremarkable 2. fistula wound had bleeding from fistula and required transfer to [facility] on 08/31 clean-based wound CT showed thrombosis reviewed [facility] records: due to hemorrhaging bleeding pseudoaneurysm: patient had ligation of multiple areas and the venous end, pseudoaneurysm was excised. wound culture on 09/[address] Royal about the case. He reviewed the CT, no surgery necessary for the thrombosis. 3. Metabolic encephalopathy Likely trivial to the hypotensive episode Currently resolved Monitor for now 4. End-stage renal disease Nephrology following HD MWF via tunnelled catheter. 5. Paroxysmal atrial fibrillation Anticoagulated on Coumadin - Secondary Discharge Diagnosis Chronic Problems (Last Reviewed 09/13/18 @ 20:17 by Stew Aldrich MD) ESRD (end stage renal disease) on dialysis (Chronic) C. difficile diarrhea (Chronic) Benign hypertension (Chronic) BPH (benign prostatic hyperplasia) (Chronic) Depression (Chronic) Hyperlipidemia (Chronic) IgA nephropathy (Chronic) Chronic gout (Chronic) Diabetes mellitus, type 2 (Chronic) DIET CONTROLLED Diastolic Dysfunction EF 60% (Chronic) Fatty liver (Chronic) KATHY on CPAP (Chronic) 16 CM WATER COPD (chronic obstructive pulmonary disease) (Chronic) With chronic respiratory failure On 3 L nasal cannula Left kidney mass (Chronic) Super obesity (Chronic) bmi 64 Chronic low back pain (Chronic) Pulmonary hypertension (Chronic) Paroxysmal atrial fibrillation (Chronic) Anemia of chronic renal failure (Chronic) Hyperkalemia (Chronic) Falls frequently (Chronic) Hospital Course and Treatment Imaging Results: Clinical Impression(s) from Imaging Studies Brain CT 09/13/18 17:21 IMPRESSION: Mild atrophy and periventricular white matter ischemic changes. No evidence for acute bleed. If concern for acute infarct MRI recommended. Electronically Signed: Freddy Decker MD at 18:54 EDT , Service support , Chest X-Ray 09/13/18 17:25 IMPRESSION: Mild bibasilar atelectasis and small right effusion Electronically Signed: Freddy Decker MD at 17:56 EDT , Service support , Upper Extremity CT 09/15/18 09:41 IMPRESSION: Findings consistent with known arteriovenous fistula with heterogeneous appearance to intravascular content suggesting possible thrombus. This may be better assessed with CTA or Doppler ultrasound if clinically warranted. No evidence for fracture or osteomyelitis. 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 Admitted to the ICU and received IV fluids. Patient mental status did improve as well as his blood pressure. Patient received 2 rounds of dialysis and responded well during his hospitalization. Patient does have labile blood pressures but has been normotensive here. Unclear the etiology of his hypertension but likely due to chronic reasons. Patient does take midodrine on his dialysis days. Patient also did have encephalopathy which is felt to be metabolic due to his hypotension. Patient had no further issues while he was here. Patient did complain of pain in his left upper extremity. Last month, patient had a bleeding pseudoaneurysm and underwent ligation over to [facility]. Patient does have a superficial wound but overall the wound is superficial and not a dehiscence of any surgical site. CAT scan did not show any cellulitis but did show what appeared to be a thrombus in the fistula. Discussed with Dr. Zaidi, vascular surgery, who advised no additional surgical intervention necessary at this time unless the thrombus was to become infected. Clinically, the thrombus is not infected. [] Patient Problems: Active and Suspected Problems (Last Reviewed 09/13/18 @ 20:17 by Stew Aldrich MD) Acute encephalopathy (Acute) Hypotension (Acute) - Physical Exam Vital Signs Temp Pulse Resp BP Pulse Ox 36.6 C 79 17 111/49 L 98 09/16/18 11:20 09/16/18 11:20 09/16/18 11:20 09/16/18 11:20 09/16/18 11:20 Oxygen Flow Rate (L/min) 3 Oxygen Delivery Method Nasal Cannula Weight: 138.6 kg Body Mass Index (BMI) 48.9 Finger Stick Blood Glucose 68 Intake and Output for Last 24 Hours 09/14/18 09/15/18 09/16/18 23:59 23:59 23:59 Intake Total 1430 / 1910 1620 / 1620 0 / 0 Output Total 1400 / 2800 1400 / 1400 0 / 0 Balance 30 / -890 220 / 220 0 / 0 Microbiology Past 72 Hours 09/15/18 10:30 Gram Stain - Final Wound - Left Forearm Laboratory Tests Past 24 Hrs 09/16/18 09/16/18 09/16/18 05:45 05:45 05:45 WBC 4.9 RBC 3.02 L Hgb 9.1 L Hct 30.1 L MCV 99.7 H MCH 30.1 MCHC 30.2 L RDW 15.7 H RDW Differential 56.7 H Plt Count 128 L MPV 9.8 Immature Gran % (Auto) 0.000 Neut % (Auto) 61.2 Lymph % (Auto) 20.2 [place] % (Auto) 7.8 Eos % (Auto) 10.2 H Baso % (Auto) 0.6 Absolute Neuts (auto) 3.0 Absolute Lymphs (auto) 0.99 Total Counted Not Reportable PT 26.9 H INR 2.5 Sodium 134 L Potassium 3.9 Chloride 99 Carbon Dioxide 27.0 Anion Gap 8 BUN 23 H Creatinine 6.16 H Estim Creat Clear Calc 10.36 Est GFR (MDRD) Af Amer 12 L Est GFR (MDRD) Non-Af 10 L BUN/Creatinine Ratio 3.7 L Glucose 110 H Calcium 8.5 Discharge Diet: Renal Diet Discharge Activity: Return to Normal Activity Call your doctor if your incision/area has: Continuous Slow Oozing, Sudden Increased Bleeding, Increased Pain/ Swelling, Increased Redness Call your doctor if you observe: Fever of 101 or Higher, Shortness of breath Home Medications: Medications to take at Discharge Nystatin Powder [Mycostatin Powder] 1 applic TOPICAL BID bottle 10/19/16 Calcium Acetate [Phoslo Gel Cap] 1,334 mg PO TIDCM 11/08/16 Cholestyramine (with Sugar) [Cholestyramine Packet] 4 gm PO BID 01/06/17 Warfarin [Coumadin] 2 mg PO SUMOWEFR 01/06/17 Warfarin [Coumadin] 3 mg PO TUTHSA 01/06/17 ferrous sulfate 325 mg (65 mg iron) tablet,delayed release 325 mg PO BID tab 05/12/18 umeclidinium 62.5 mcg/actuation blister powder for inhalation 1 inh INHALATION DAILY 05/12/18 Acetaminophen [Tylenol Suppository] 650 mg RECTAL Q4H PRN PRN 08/18/18 Acetaminophen [Tylenol Tablet] 650 mg PO Q4H PRN PRN 08/18/18 Albuterol Aerosols [Ventolin Aerosols] 2.5 mg INHALATION Q4H PRN PRN 08/18/18 B Complex W-C No.20/Folic Acid [Virt-Caps Softgel] 1 mg PO DAILY 08/18/18 Bisacodyl [Laxative Suppository] 10 mg RC DAILY PRN PRN 08/18/18 Dextrose [Glucose Gel] 38 gm PO PRN PRN 08/18/18 Docusate Sodium [Colace] 100 mg PO DAILY 08/18/18 Escitalopram Oxalate [Lexapro] 10 mg PO DAILY 08/18/18 Fluticasone/Vilanterol [Breo Ellipta 100-25 Mcg INH] 1 each IH DAILY 08/18/18 Gabapentin [Neurontin] 300 mg PO DAILY 08/18/18 Glucagon,Human Recombinant [Glucagon Emergency Kit] 1 mg IJ PRN PRN 08/18/18 Guaifenesin [Robitussin] 10 ml PO Q4H PRN PRN 08/18/18 Loperamide HCl [Imodium A-D] 2 mg PO Q6H PRN PRN 08/18/18 Mag Hydrox/Aluminum Hyd/Simeth [Antacid Liquid] 30 ml PO Q4H PRN PRN 08/18/18 Magnesium Hydroxide [Milk Of Magnesia] 30 ml PO DAILY PRN PRN 08/18/18 Metoprolol Tartrate [Lopressor (beta alex)] 12.5 mg PO SUTUTHSA 08/18/18 Midodrine HCl 10 mg PO MOWEFR 08/18/18 Na Phos,M-B/Na Phos,Di-Ba [Fleet Enema] 1 bottle RECTAL DAILY PRN PRN 08/18/18 Ondansetron HCl [Zofran] 4 mg PO Q6H PRN PRN 08/18/18 Pantoprazole Sodium [Protonix] 40 mg PO DAILY 08/18/18 Pramipexole Di-HCl [Mirapex] 0.5 mg PO QHS 08/18/18 Primary Care Physician: Heraclio Whitehead MD [Primary Care Provider] - Within 2 Weeks [facility]: [facility] Disposition: Group Home facility Minutes spent on discharge:: 50 Patient Condition:: Fair Medical Necessity - Tobacco Use Smoking Status: Never smoker Meaningful Use Info Meaningful Use Diagnoses (Choose all that apply): None applicable Code Visit Inpatient E&M: 02894 Disch Hosp
--- NOTE | 2018-09-16 15:04 | CASEMGMT ---
Patient is ready for discharge back to [facility]. CLARA called and left message for Irais. CLARA faxed orders to [facility]. CLARA called [facility] to arrange transportation. [facility] will crop picker patient in 2-3 hours. CLARA notified RN, patient, clerk secretary, and Irais at [facility]. Patient did not want SW to call any family about discharge. Plan: d/c back to [facility] under skilled level of care. Patient is a nursing home resident of [facility]. [facility] transported via bariatric cot. Yandy JASSO DYNAMO TENDER
--- NOTE | 2018-09-16 17:28 | NURSING ---
report called to mike hair
== END 2018-09-16 17:30 | disposition skilled nursing facility (03) | DRG 314 ==
LOC: ED 17:50 → ICU 20:21 → PCU 09-15 20:10
PROVIDERS: Internal Medicine Nephrology; Admitting Provider Hospitalist; Emergency Provider Emergency Medicine; Family Provider Internal Medicine; PCP Internal Medicine
DX: I95.9 Hypotension, unspecified (principal); N18.6 End stage renal disease; G93.41 Metabolic encephalopathy; Z68.42 Body mass index [BMI] 45.0-49.9, adult; J96.10 Chronic respiratory failure, unspecified whether with hypoxia or hypercapnia; I12.0 Hypertensive chronic kidney disease with stage 5 chronic kidney disease or end stage renal disease; I48.0 Paroxysmal atrial fibrillation; E11.22 Type 2 diabetes mellitus with diabetic chronic kidney disease; G25.81 Restless legs syndrome; J44.9 Chronic obstructive pulmonary disease, unspecified; Z99.81 Dependence on supplemental oxygen; E66.01 Morbid (severe) obesity due to excess calories; N40.0 Benign prostatic hyperplasia without lower urinary tract symptoms; Z99.2 Dependence on renal dialysis; F32.9 Major depressive disorder, single episode, unspecified; M1A.9XX0 Chronic gout, unspecified, without tophus (tophi); I27.20 Pulmonary hypertension, unspecified; Z79.4 Long term (current) use of insulin; Z79.01 Long term (current) use of anticoagulants
CPT/HCPCS: 36415; 70450; 71045; 73200; 80048; 80053; 82607; 83605; 84484; 85025; 85027; 85610; 87040; 87070; 87205; 87340; 90937; 93005; 93306; 94640; 97162; 97166; 97530; 97535; 97802; 99285; J7030; J7040; Q9957; A4216; G0257

== ENCOUNTER → 2018-10-06 | Outpatient (CLI) | payer MEDICARE, SELFPAY ==
[2018-09-13 20:37] VITALS: BMI 48.9
--- NOTE | 2018-10-06 13:28 | VDUE_ITS ---
Reason For Study: ESRD, difficult dialysis access Right Arm Left Arm Right cephalic vein is compressible. Left cephalic vein is compressible. Right Cephalic Vein at the shoulder Left Cephalic Vein at the shoulder measures .46 x .46 cm. measures .38 x .39 cm. Right Cephalic Vein mid bicep measures .43 Left Cephalic Vein at mid bicep measures .5 x .47 cm. x .52 cm. Right Cephalic Vein above antecub Left Cephalic Vein above antecub measures .41 measures .47 x .49 cm. x .42 cm. Right Cephalic Vein below antecub Thrombosed fistula below this level. measures .27 x .3 cm. Cepalic V is tortuous in the upper arm. Right Cephalic Vein in the forearm Left basilic vein is compressible. measures .29 x .31 cm. Basilic vein at bicep measures .44 x .45 cm. Right Cephalic Vein at the wrist measures .23 Basilic vein above antecub measures .66 x .68 x .25 cm. cm. Right basilic vein is compressible. Basilic vein below antecub measures .29 x .3 Right Basilic Vein mid bicep measures .27 cm. x .27 cm. Basilic vein in the forearm measures .19 x .2 Right Basilic Vein above antecub measures .29 cm. x .32 cm. Basilic vein at the wrist measures .12 x .15 Right Basilic Vein below antecub measures .12 cm. x .14 cm. Brachial artery .58 x .53 cm Right Basilic Vein in the forearm Bracial artery 81.2 cm/s measures .09 x .12 cm. Radial artery .25 x .28 cm Right Basilic Vein at the wrist measures .19 Radial artery 18.6 cm/s. x .21 cm. Brachial artery .53 x .5 cm Bracial artery 40.9 cm/s Radial artery .19 x .25 cm Radial artery 59.2 cm/s. Interpretation Summary Patent and compressible right upper extremity cephalic and basilic veins with dimensions as noted. Normal right radial and brachial arterial diamter. Patent and compressible left upper arm cephalic vein--tortuous. Patent and compressible left upper arm basilic vein. Small left forearm basilic vein and thrombosed forearm fistula. Normal left brachial artery diameter and small left radial artery. Ordering Physician: Aydin Royal Performed By: Matt Paredes RVT ?
== END | disposition home or self-care (01) ==
LOC: CVS 13:26
PROVIDERS: Family Provider Internal Medicine; PCP Internal Medicine; Referring Provider Surgery; Visit Provider Surgery
DX: Z01.818 Encounter for other preprocedural examination (principal); N18.6 End stage renal disease; T82.898A Other specified complication of vascular prosthetic devices, implants and grafts, initial encounter; Z99.2 Dependence on renal dialysis
CPT/HCPCS: 93970

== ENCOUNTER 2018-10-30 05:19 | Day surgery (SDC) | payer MEDICARE, SELFPAY ==
[2018-10-15 09:22] VITALS: BMI 48.4
--- NOTE | 2018-10-15 09:44 | HP_ITS ---
Intake Vital Signs 10/15/18 Height 5 ft 6 in 10/15/18 Weight: 300 lb 8 oz 10/15/18 Body Mass Index (BMI) 48.4 10/15/18 Blood Pressure 96/63 10/15/18 Blood Pressure Location Rt brachial 10/15/18 Blood Pressure Position Sitting 10/15/18 Respiratory Rate 20 H 10/15/18 Pulse Ox 94 10/15/18 Oxygen Delivery Method nasal canula 10/15/18 Oxygen Flow Rate (L/min) 3 10/15/18 Body Mass Index (BMI) 48.9 10/07/18 Body Mass Index (BMI) 48.9 Intake Visit Reasons: Discuss Sx/Testing per Wrkld Msg Chief Complaint: Confusion, hypotension Claims Administrator Required: No Is patient in pain?: No Allergies mirtazapine [From Remeron] Allergy (Verified 10/15/18 09:23) forgetful, doesn't remember anything Sulfa (Sulfonamide Antibiotics) Allergy (Verified 10/15/18 09:23) bleeding from kidneys aspirin Adverse Reaction (Verified 10/15/18 09:23) Nausea oxycodone HCl [From Percodan] Adverse Reaction (Verified 10/15/18 09:23) Nausea oxycodone terephthalate [From Percodan] Adverse Reaction (Verified 10/15/18 09:23) Nausea Medications Nystatin Powder [Mycostatin Powder] 1 applic TOPICAL BID bottle 10/19/16 [Rx Confirmed 10/15/18] Calcium Acetate [Phoslo Gel Cap] 1,334 mg PO TIDCM 11/08/16 [History Confirmed 10/15/18] Cholestyramine (with Sugar) [Cholestyramine Packet] 4 gm PO BID 01/06/17 [History Confirmed 10/15/18] ferrous sulfate 325 mg (65 mg iron) tablet,delayed release 325 mg PO BID tab 05/12/18 [History Confirmed 10/15/18] umeclidinium 62.5 mcg/actuation blister powder for inhalation 1 inh INHALATION DAILY 05/12/18 [History Confirmed 10/15/18] Acetaminophen [Tylenol Suppository] 650 mg RECTAL Q4H PRN PRN 08/18/18 [History Confirmed 10/15/18] Acetaminophen [Tylenol Tablet] 650 mg PO Q4H PRN PRN 08/18/18 [History Confirmed 10/15/18] Albuterol Aerosols [Ventolin Aerosols] 2.5 mg INHALATION Q4H PRN PRN 08/18/18 [History Confirmed 10/15/18] B Complex W-C No.20/Folic Acid [Virt-Caps Softgel] 1 mg PO DAILY 08/18/18 [History Confirmed 10/15/18] Bisacodyl [Laxative Suppository] 10 mg TN DAILY PRN PRN 08/18/18 [History Confirmed 10/15/18] Dextrose [Glucose Gel] 38 gm PO PRN PRN 08/18/18 [History Confirmed 10/15/18] Docusate Sodium [Colace] 100 mg PO DAILY 08/18/18 [History Confirmed 10/15/18] Escitalopram Oxalate [Lexapro] 10 mg PO DAILY 08/18/18 [History Confirmed 10/15/18] Fluticasone/Vilanterol [Breo Ellipta 100-25 Mcg INH] 1 ea IH DAILY 08/18/18 [History Confirmed 10/15/18] Gabapentin [Neurontin] 300 mg PO DAILY 08/18/18 [History Confirmed 10/15/18] Glucagon,Human Recombinant [Glucagon Emergency Kit] 1 mg IJ PRN PRN 08/18/18 [History Confirmed 10/15/18] Guaifenesin [Robitussin] 10 ml PO Q4H PRN PRN 08/18/18 [History Confirmed 10/15/18] Loperamide HCl [Imodium A-D] 2 mg PO Q6H PRN PRN 08/18/18 [History Confirmed 10/15/18] Mag Hydrox/Aluminum Hyd/Simeth [Antacid Liquid] 30 ml PO Q4H PRN PRN 08/18/18 [History Confirmed 10/15/18] Magnesium Hydroxide [Milk Of Magnesia] 30 ml PO DAILY PRN PRN 08/18/18 [History Confirmed 10/15/18] Midodrine HCl 10 mg PO MOWEFR 08/18/18 [History Confirmed 10/15/18] Na Phos,M-B/Na Phos,Di-Ba [Fleet Enema] 1 bottle RECTAL DAILY PRN PRN 08/18/18 [History Confirmed 10/15/18] Ondansetron HCl [Zofran] 4 mg PO Q6H PRN PRN 08/18/18 [History Confirmed 10/15/18] Pantoprazole Sodium [Protonix] 40 mg PO DAILY 08/18/18 [History Confirmed 10/15/18] Pramipexole Di-HCl [Mirapex] 0.5 mg PO QHS 08/18/18 [History Confirmed 10/15/18] tramadol 50 mg tablet 50 mg PO DAILY 10/15/18 [History Confirmed 10/15/18] warfarin 2 mg tablet 2 mg PO DAILY tab 10/15/18 [History Confirmed 10/15/18] PFS Medical History ESRD (end stage renal disease) on dialysis (Chronic) C. difficile diarrhea (Chronic) Hemorrhage of arteriovenous fistula (Resolved) Benign hypertension (Chronic) BPH (benign prostatic hyperplasia) (Chronic) Depression (Chronic) Hyperlipidemia (Chronic) IgA nephropathy (Chronic) Chronic gout (Chronic) Diabetes mellitus, type 2 (Chronic) Diastolic Dysfunction EF 60% (Chronic) COPD (chronic obstructive pulmonary disease) (Chronic) Left kidney mass (Chronic) Chronic low back pain (Chronic) Pulmonary hypertension (Chronic) Paroxysmal atrial fibrillation (Chronic) Vertebral osteomyelitis, acute (Inactive) Rhabdomyolysis (Inactive) Osteomyelitis (Inactive) Anemia of chronic renal failure (Chronic) Atrial fibrillation (Acute) Surgical History History of arteriovenostomy for renal dialysis (Acute) History of cholecystectomy (Acute) History of colonoscopy (Acute) History of total bilateral knee replacement (Acute) Status post biopsy of kidney (Acute) Social History (Updated 10/15/18 @ 09:44 by Aydin Royal MD) Smoking Status: Never smoker HPI HPI HPI: CANDICE MCINTOSH, is a 68 M who presents to the office today for HPI HPI Surgical H&P: Yes HPI: CANDICE MCINTOSH, is a 68 M who presents to the office today for discussion of re-creation of an AV fistula. By report the patient had significant excessive bleeding. This occurred on August 31, 2018. The patient was sent to Dr. Dell Lawrence who ligated his left forearm radiocephalic AV fistula. The patient also had right internal jugular tunneled dialysis catheters placed. He currently lives in a nursing facility. He presents in a motorized wheelchair. He is able to stand with assistance. His body weight has increased again. He is on 3 L/min of nasal prong oxygen continuously. Bilateral upper extremity vein mapping was performed as below [facility] [address] [place] [address] Saphenous Vein Mapping, Bilat 10/06/18 1335 MR#: [id number] Name: CANDICE MCINTOSH #:[id number] : 1950 68From: Aydin Royal MD Attending Dr: Genny CORTES,[place]: REG CLI Ordering Dr: Aydin Royal MDDate: 10/06/18 [facility]: Reason For Study: ESRD, difficult dialysis access Right Arm Left Arm Right cephalic vein is compressible. Left cephalic vein is compressible. Right Cephalic Vein at the shoulder Left Cephalic Vein at the shoulder measures .46 x .46 cm. measures .38 x .39 cm. Right Cephalic Vein mid bicep measures .43 Left Cephalic Vein at mid bicep measures .5 x .47 cm. x .52 cm. Right Cephalic Vein above antecub Left Cephalic Vein above antecub measures .41 measures .47 x .49 cm. x .42 cm. Right Cephalic Vein below antecub Thrombosed fistula below this level. measures .27 x .3 cm. Cepalic V is tortuous in the upper arm. Right Cephalic Vein in the forearm Left basilic vein is compressible. measures .29 x .31 cm. Basilic vein at bicep measures .44 x .45 cm. Right Cephalic Vein at the wrist measures .23 Basilic vein above antecub measures .66 x .68 x .25 cm. cm. Right basilic vein is compressible. Basilic vein below antecub measures .29 x .3 Right Basilic Vein mid bicep measures .27 cm. x .27 cm. Basilic vein in the forearm measures .19 x .2 Right Basilic Vein above antecub measures .29 cm. x .32 cm. Basilic vein at the wrist measures .12 x .15 Right Basilic Vein below antecub measures .12 cm. x .14 cm. Brachial artery .58 x .53 cm Right Basilic Vein in the forearm Bracial artery 81.2 cm/s measures .09 x .12 cm. Radial artery .25 x .28 cm Right Basilic Vein at the wrist measures .19 Radial artery 18.6 cm/s. x .21 cm. Brachial artery .53 x .5 cm Bracial artery 40.9 cm/s Radial artery .19 x .25 cm Radial artery 59.2 cm/s. Interpretation Summary Patent and compressible right upper extremity cephalic and basilic veins with dimensions as noted. Normal right radial and brachial arterial diamter. Patent and compressible left upper arm cephalic vein--tortuous. Patent and compressible left upper arm basilic vein. Small left forearm basilic vein and thrombosed forearm fistula. Normal left brachial artery diameter and small left radial artery. Ordering Physician: Aydin Royal Performed By: Matt Paredes, T ? 10/06/181821 Date Aydin Royal MD CC: Aydin Royal MD; Heraclio Whitehead MD ~ Date Dictated:10/06/18 1335 Date Transcribed: 10/06/181821 [employer] Specialist: Signed ROS General General: Yes fatigue; no weight change, appetite, colon cancer, breast cancer or weakness HEENT HEENT: No difficulty swallowing, eye injury, eye surgery, swollen glands or hoarseness Endo Endocrine: Yes diabetes mellitus; no thyroid disease, thyroid cancer, Hair loss, heat intolerance or cold intolerance Musc Musculoskeletal: Yes back problems, arthritis and gout; no rheumatoid arthritis or joint pain Cardio Cardiovascular: Yes atrial fibrillation, high blood pressure and shortness of breat with exertion; no murmur, pacemaker, heart disease, heart attack, heart stent, palpitations or chest pain Resp Respiratory: Yes shortness of breath, No sleep apnea, No cough, Yes COPD, No asthma, No emphysema, No wheezing Gastro Gastrointestinal: No abdominal pain, No nausea or vomiting, Yes diarrhea, No constipation, No blood in stool, No acid reflux, No hemorrhoids, No ulcers, No gallbladder problem, No black,tarry stools Gavin Hematologic: Yes blood thinners, No blood disorders, No bleeding, Yes anemia, No blood clots Neuro Neurologic: No weakness Exam Const General: cooperative, no acute distress Nutritional Appearance: obese morbidly obese [facility] Head: normal to inspection Resp Auscultation: clear to auscultation bilaterally Other: Diminished breath sounds in the bases Cardio Rate: regular rate Heart Sounds: no murmurs GI Other: Unable to examine due to body habitus Neuro Cognition: normal cognition Extrem Other: Significant bilateral extremity swelling and hyperpigmentation and lichenification Psych Affect: normal affect Assessment & Plan Problems 1. Problem with dialysis access, initial encounter T82.278A Plan Extraordinarily challenging 68-year-old gentleman who now has had a ligated left forearm AV fistula. He is dialyzed via right IJ tunneled dialysis catheters. He has had a left forearm fistula for an extended period of time. His left upper arm cephalic vein has matured to the degree albeit tortuous. He has digit loss from his left hand secondary to arterial steal from his forearm fistula. The patient's general health is not good. I believe that the most direct means of assisting him with be a left upper arm brachiocephalic AV fistula. The cephalic vein of the upper arm is present at the antecubital space in a horizontal position and then moves up the arm in a zigzag pattern. I believe with local anesthetic and some mild monitored anesthesia care that this vein could be slightly mobilized down to the brachial artery without doing an extensive amount of dissection. I believe that this would be our least invasive means of providing a more long-term fistula access. He has had an opportunity to ask and have questions answered. He is in atrial fibrillation on chronic Coumadin. We will have him hold his Coumadin 3 days preoperatively. We will schedule and proceed at his discretion. The patient is well aware that he is at increased operative risk and difficulty. CC: Dr. Heraclio Whitehead and Dr. Nancy Royal M.D., F.A.C.S. Coding Level of Care Code Off vis,est,level 3 Diagnoses Problem with dialysis access, initial encounter T82.898A ??Encounter type: initial encounter 10/15/18 0944 <Electronically signed by Aydin barton MD> Date _ Aydin Royal MD I have re-examined the patient. There are no clinical changes since date of exam.
[2018-10-30] VITALS (9 sets, daily range): BP systolic 63–113; BP diastolic 35–72; PULSE 70–78; RESP 16; TEMP 36.2–36.4; O2SAT 97–100; BMI 49.1
[2018-10-30 06:06] LABS: Hematocrit 41.9 % (40-54); Hemoglobin 12.6 g/dL (13.0-16.5); Mean Corp Hgb Conc 30.1 g/dL (32-36); Mean Corpuscular Hgb 28.8 pg (27.0-32.0); Mean Corpuscular Volume 95.9 fL (80-94); Mean Platelet Vol. 10.1 fl (6.2-12.0); Platelet Count 168 K/mm3 (150-450); RBC Distribution Width CV 14.6 % (11.6-14.6); RBC Distribution Width SD 50.7 fl (35.1-43.9); Red Blood Count 4.37 M/mm3 (4.6-6.2); White Blood Count 7.3 K/mm3 (4.4-11.0)
[2018-10-30 06:11] LABS: International Normalized Ratio 1.5
[2018-10-30 06:16] LABS: Anion Gap 10 (5-15); BUN 47 mg/dL (7-18); BUN/Creat Ratio 9.6 RATIO (10-20); Calcium,Total 8.4 mg/dL (8.5-10.1); Chloride 100 mmol/L (98-107); Creatinine, Serum 4.88 mg/dL (0.70-1.30); EST Glomerular Filtration Rate 13 mL/min (>60); Est Glom Filt Rate - Afr Amer 15 mL/min (>60); Glucose 97 mg/dL (74-106); Potassium 4.6 mmol/L (3.5-5.1); Sodium Level 137 mmol/L (136-145)
[2018-10-30 06:25] LABS: Bedside Glucose 107 mg/dL (70-110)
[2018-10-30] MEDS: 0.45% Normal Saline 1,000 ML 30 ML IV (06:35)
--- NOTE | 2018-10-30 07:10 | DCINST_ITS ---
Discharge Diet: Renal Diet Discharge Activity: May Not Drive - for 2-3 days or while taking narcotic pain medications., May Shower, May Take a Tub Bath - in 5 days. Lifting Restrictions: 5 pounds Keep extremity elevated above heart level: - - Keep arm elevated above the heart level for 3 days. Additional Activity Instructions:: Exercise hand vigorously with a stress ball. Call your doctor if your incision/area has: Continuous Slow Oozing, Sudden Increased Bleeding - apply pressure and call your doctor., Increased Pain/ Swelling, Increased Redness, Foul Smelling Discharge Call your doctor if you observe: Fever of 101 or Higher Suture Line Care: Avoid Pulling/Pushing, Avoid Pinching/Bending Cleanse incision/area with: Keep Dressing Clean & Dry Additional Dressing/Incision Instructions:: Elevate your left arm for comfort. You may leave the elastic Chas wrap dressing on for 3 days. You may then remove the Chas wrap dressing and the cotton dressing. Leave the Steri-Strips in place on the incision itself. Allergies/Adverse Reactions: Allergies mirtazapine [From Remeron] Allergy (Verified 10/30/18 06:06) forgetful, doesn't remember anything Sulfa (Sulfonamide Antibiotics) Allergy (Verified 10/30/18 06:06) bleeding from kidneys aspirin Adverse Reaction (Verified 10/30/18 06:06) Nausea oxycodone HCl [From Percodan] Adverse Reaction (Verified 10/30/18 06:06) Nausea oxycodone terephthalate [From Percodan] Adverse Reaction (Verified 10/30/18 06:06) Nausea Medications to take at Discharge Nystatin Powder [Mycostatin Powder] 1 applic TOPICAL BID bottle 10/19/16 Calcium Acetate [Phoslo Gel Cap] 1,334 mg PO TIDCM 11/08/16 Cholestyramine (with Sugar) [Cholestyramine Packet] 4 gm PO BID 01/06/17 ferrous sulfate 325 mg (65 mg iron) tablet,delayed release 325 mg PO BID tab 05/12/18 umeclidinium 62.5 mcg/actuation blister powder for inhalation 1 inh INHALATION LUNCH 05/12/18 Acetaminophen [Tylenol Suppository] 650 mg RECTAL Q4H PRN PRN 08/18/18 Acetaminophen [Tylenol Tablet] 650 mg PO Q4H PRN PRN 08/18/18 Albuterol Aerosols [Ventolin Aerosols] 2.5 mg INHALATION Q4H PRN PRN 08/18/18 B Complex W-C No.20/Folic Acid [Virt-Caps Softgel] 1 mg PO DAILY 08/18/18 Bisacodyl [Laxative Suppository] 10 mg MO DAILY PRN PRN 08/18/18 Dextrose [Glucose Gel] 38 gm PO PRN PRN 08/18/18 Docusate Sodium [Colace] 100 mg PO DAILY 08/18/18 Escitalopram Oxalate [Lexapro] 10 mg PO DAILY 08/18/18 Fluticasone/Vilanterol [Breo Ellipta 100-25 Mcg INH] 1 ea IH DAILY 08/18/18 Gabapentin [Neurontin] 300 mg PO DAILY 08/18/18 Glucagon,Human Recombinant [Glucagon Emergency Kit] 1 mg IJ PRN PRN 08/18/18 Guaifenesin [Robitussin] 10 ml PO Q4H PRN PRN 08/18/18 Loperamide HCl [Imodium A-D] 2 mg PO Q6H PRN PRN 08/18/18 Mag Hydrox/Aluminum Hyd/Simeth [Antacid Liquid] 30 ml PO Q4H PRN PRN 08/18/18 Magnesium Hydroxide [Milk Of Magnesia] 30 ml PO DAILY PRN PRN 08/18/18 Midodrine HCl 10 mg PO DAILY 08/18/18 Na Phos,M-B/Na Phos,Di-Ba [Fleet Enema] 1 bottle RECTAL DAILY PRN PRN 08/18/18 Ondansetron HCl [Zofran] 4 mg PO Q6H PRN PRN 08/18/18 Pantoprazole Sodium [Protonix] 40 mg PO DAILY 08/18/18 Pramipexole Di-HCl [Mirapex] 0.5 mg PO QHS 08/18/18 tramadol 50 mg tablet 50 mg PO DAILY PRN 10/15/18 Warfarin Sodium 3 mg PO DAILY 10/29/18 Primary Care Physician: Heraclio Whitehead MD [Primary Care Provider] - Test Results: Test results from this visit will be discussed in further detail at your follow- up appointment, if applicable. Please Follow Up With: Aydin Royal MD - [phone] When: Call to make an appointment for suture removal and follow up in 1 week.
[2018-10-30] MEDS: Bupivacaine Mpf 0.5% 30 ML VIAL (07:25)
--- NOTE | 2018-10-30 08:53 | PCM.OPRPT ---
Problem List (1) Problem with dialysis access Status: Acute Qualifiers: Encounter type: subsequent encounter Qualified Code(s): T82.898D - Other specified complication of vascular prosthetic devices, implants and grafts, subsequent encounter Report of Operation Date of Procedure: 10/30/18 Pre-Operative Diagnosis: History of ligated left forearm radial to cephalic arteriovenous fistula Post-Operative Diagnosis: Same Surgery/Procedure Performed:: Left upper extremity transposition cephalic vein to brachial artery AV fistula creation Description of Surgical Findings:: Timeout and informed consent was obtained. 60-year-old gentleman taken out from placement table underwent monitored anesthesia care. 1% lidocaine mixed 50-50 with 0.5% Marcaine was used as a local anesthetic. A total 33 cc was used. Local was instilled at the antecubital space after ultrasound mapping. Oblique incision was created. Sharp and blunt dissection was used to identify the cephalic vein. The tissues were indurated tedious dissection was required hemostasis obtained were indicated with electrocautery and hemoclips. It became apparent that because the location of the brachial artery and the patient's morbid obesity that the vein was not going to make a direct connection so then I had to do a subcutaneous dissection to help elevate the cephalic vein. Side branches were secured with a hemoclips as I gradually my way way subcutaneously to release the very distal portion of the cephalic vein in order to transpose it more proximally. I then performed sharp and blunt dissection was used to identify the brachial artery with had significant atherotic debris within its lumen and along its monzon. It was palpable though. After the vein was completely mobilized and the artery had been identified the patient received 12,000 units of heparin. The vein was ligated distally with a 3-0 Vicryl. Then peripheral vascular clamps were placed on the brachial artery and 11 blade was used to make an arteriotomy which was extended with Enciso scissors. A end-to-side anastomosis was created with a running 7-0 Prolene. Prior to completion of this good antegrade retrograde flow. The anastomosis was completed. Several repair sutures of 7-0 Prolene were required. There was a good pulse thrill and bruit at the completion. The vein appeared to have a good positional lie. The vein is quite tortuous in the upper arm. I have elected not to do a more extensive procedure in the upper arm because of the patient's general medical health and morbid obesity. Patient received 30 mill grams of protamine as reversal. The deep tissue was approximated interrupted 3-0 Vicryl subdermal stitches. Skin edges approximated running septic or 4-0 Monocryl. Steri-Strips Telfa soft roll Chas wrap applied. Sponge and instrument and needle counts were reported the surgeon be correct. Blood loss was 200 cc. He tolerated the procedure well was taken to the recovery area in satisfactory condition. Specimens none. Drains none. Blood loss 200. Aydin Royal M.D., F.A.C.S. Type of Anesthesia:: Local MAC Anesthesiologist: Kalia Gamble
== END 2018-10-30 10:54 | disposition home or self-care (01) ==
LOC: SDC 05:20 → AC 05:21
PROVIDERS: Anesthesiology; Family Provider Internal Medicine; PCP Internal Medicine; Referring Provider Surgery; Visit Provider Surgery
PROC: (CPT 36818; principal; 2018-10-30 07:00)
DX: T82.898A Other specified complication of vascular prosthetic devices, implants and grafts, initial encounter (principal); E11.22 Type 2 diabetes mellitus with diabetic chronic kidney disease; I13.2 Hypertensive heart and chronic kidney disease with heart failure and with stage 5 chronic kidney disease, or end stage renal disease; I50.9 Heart failure, unspecified; N18.6 End stage renal disease; Z99.2 Dependence on renal dialysis; D63.1 Anemia in chronic kidney disease; E66.01 Morbid (severe) obesity due to excess calories; Z68.42 Body mass index [BMI] 45.0-49.9, adult; N40.0 Benign prostatic hyperplasia without lower urinary tract symptoms; F32.9 Major depressive disorder, single episode, unspecified; E78.00 Pure hypercholesterolemia, unspecified; E11.21 Type 2 diabetes mellitus with diabetic nephropathy; J44.9 Chronic obstructive pulmonary disease, unspecified; M54.5 Low back pain; G89.29 Other chronic pain; I27.20 Pulmonary hypertension, unspecified; I48.0 Paroxysmal atrial fibrillation; M1A.9XX0 Chronic gout, unspecified, without tophus (tophi); G47.30 Sleep apnea, unspecified; G25.81 Restless legs syndrome; K21.9 Gastro-esophageal reflux disease without esophagitis; K76.0 Fatty (change of) liver, not elsewhere classified; Z86.19 Personal history of other infectious and parasitic diseases; Z99.81 Dependence on supplemental oxygen; Z79.01 Long term (current) use of anticoagulants; Z79.899 Other long term (current) drug therapy
CPT/HCPCS: 01844; 36818; 36415; 80048; 82962; 85027; 85610

== ENCOUNTER 2019-01-05 11:05 | Emergency (ER) | payer MEDICARE, SELFPAY ==
[2018-12-22 12:44] VITALS: BMI 48.4
[2019-01-05] VITALS (9 sets, daily range): BP systolic 74–125; BP diastolic 30–75; PULSE 74–80; RESP 12–18; TEMP 36.8; O2SAT 95–97; BMI 52.3
--- NOTE | 2019-01-05 11:18 | ED.RN ---
IV TO LEFT HAND PER SQUAD. IV BELOW FISTULA. IV FLUIDS STOPPED PER THIS RN AND IV REMOVED. IV INITIATED TO RT SHOULDER
--- NOTE | 2019-01-05 11:36 | EKG12_ITS ---
Test Reason : LOW BP Blood Pressure : / mmHG Vent. Rate : 078 BPM Atrial Rate : 078 BPM P-R Int : 218 ms QRS Dur : 106 ms QT Int : 416 ms P-R-T Axes : 053 007 047 degrees QTc Int : 474 ms Sinus rhythm with 1st degree A-V block with Premature atrial complexes Low voltage QRS Borderline ECG Confirmed by ENZO LEWIS ([id number]), electronic news gathering editor JUDITH CABRALES ([id number]) on 01/11/2019 8:49:07 AM Referred By: ISMAEL Confirmed By:ENZO LEWIS
--- NOTE | 2019-01-05 11:37 | ED.DCSUM_ITS ---
- ER Visit Summary Date of Service: 01/05/19 Chief Complaint: Weakness and lethargy per the patient. History of Present Illness: The patient is a 68 M history of hypertension, A. fib, end-stage renal disease on dialysis last dialysis yesterday with a left arm fistula and a right tunneled Vas-Cath. Also COPD. Patient states he does not make urine. He denies nausea, vomiting, diarrhea. He denies fever or chills. He denies any abdominal pain. He denies any chest pain or shortness of breath. He denies any melena. Physical Examination: Older male no acute distress current vital signs are stable afebrile. Initial blood pressure 121/57. H EENT exam unremarkable. Neck nontender no lymphadenopathy. Lungs clear to auscultation bilaterally. Heart regular rhythm no murmur. Abdomen is soft and nontender normal bowel sounds no peritoneal signs. Morbidly obese. Remedies moves all 4. He has had bilateral knee replacements. Well-healed. Left hand he has some irritated fingers. He is able to move both upper and lower extremities. He has chronic venous stasis changes of the skin of his lower extremities. Calves are nontender without edema. There is no cords. Neurologically is awake he is alert he is answering questions and following commands. Test Results: CBC shows a white count of 6. Hemoglobin 13. No bands. Chemistries unremarkable. BUN is 69 creatinine 5.6 consistent with his end- stage renal disease dialysis. Troponin normal. Lactate 1.6. EKG sinus rhythm rate of 78 with PACs. First-degree AV block. No acute signs of ID or ischemia. Repeat EKG was done later in his course because he is complaining of some indigestion. The repeat EKG was the same sinus rhythm with a rate of 81 with low voltage. But no acute signs of ID or ischemia. No change from the prior. Chest x-ray portable one view showed no acute abnormality. Chronic changes. A right Vas-Cath. Read both myself and the radiologist. Emergency Department Course and Treatment: Elderly male from a [place] [facility] with extensive past medical history with lethargy. Vision treated with IV fluid bolus. His emergency department initially his blood pressure seemed to be low we are questioning if the readings were accurate because he was on his forearm we took multiple different blood pressures from different sites and they have now been consistently over 100. On repeat exam at 1715 p.m. he is awake and alert. He knows day month and year. He knows where he is at. He will be discharged back to the [place] [facility]. Treatment Plan: Follow-up with his primary care physician. Discharge back to the extended care facility. Disposition: Discharge Impression: Acute transient hypotension resolved Reported mental status change at the [place] [facility] resolved This note was generated with Flash Valet dictation software. It may contain incorrect words, spelling, and punctuation that were not noted in review of the chart prior to signing ED Disposition - Plan for ED Patient: Referrals: Heraclio Whitehead MD [Primary Care Provider] -
[2019-01-05 11:45] LABS: Absolute Lymphocyte Count 0.89 X10^3/uL (0.83-4.51); Absolute Neutrophil Count 5.2 X10^3/uL (2.0-7.7); Basophil# 0.06 X10^3/uL; Basophil% 0.9 % (0-1); Eosinophil# 0.22 X10^3/uL; Eosinophils% 3.2 % (0-5); Hematocrit 43.4 % (40-54); Hemoglobin 13.2 g/dL (13.0-16.5); Lymphocyte # 0.89 X10^3/ul (4.0); Lymphocyte % 12.9 % (19-41); Mean Corp Hgb Conc 30.4 g/dL (32-36); Mean Corpuscular Hgb 28.8 pg (27.0-32.0); Mean Corpuscular Volume 94.6 fL (80-94); Mean Platelet Vol. 11.5 fl (6.2-12.0); Monocyte# 0.53 X10^3/uL; Monocyte% 7.7 % (0-10); NRBC Flagged by Analyzer 0 % (0-5); Neutrophil # 5.18 X10^3/uL (2.7-7.7); Neutrophil % 74.9 % (47-70); Platelet Count 107 K/mm3 (150-450); RBC Distribution Width CV 16.2 % (11.6-14.6); RBC Distribution Width SD 56.4 fl (35.1-43.9); Red Blood Count 4.59 M/mm3 (4.6-6.2); White Blood Count 6.9 K/mm3 (4.4-11.0)
[2019-01-05 12:01] LABS: Anion Gap 8 (5-15); BUN 69 mg/dL (7-18); BUN/Creat Ratio 12.1 RATIO (10-20); Chloride 99 mmol/L (98-107); Creatinine, Serum 5.69 mg/dL (0.70-1.30); EST Glomerular Filtration Rate 11 mL/min (>60); Est Glom Filt Rate - Afr Amer 13 mL/min (>60); Estimated Creatinine Clearance 11.21 ml/min; Glucose 118 mg/dL (74-106); Potassium 4.5 mmol/L (3.5-5.1); Sodium Level 135 mmol/L (136-145)
[2019-01-05 12:02] LABS: Lactic Acid 1.6 mmol/L (0.4-2.0)
[2019-01-05 12:06] LABS: Bedside Glucose 97 mg/dL (70-110)
--- NOTE | 2019-01-05 12:22 | RAD_ITS ---
STUDY: X-RAY CHEST REASON FOR EXAM: Male, 68 years old. Hypotension TECHNIQUE: AP portable COMPARISON: 09/13/2018 FINDINGS: Limited visualization of the bilateral lung bases. No gross focal consolidation. Cardiomegaly and increased pulmonary vascular markings. Atherosclerosis of the aortic arch. Central vascular catheter noted on the right with tip in distal superior vena cava. Osseous structures are intact There is no demonstrated abnormality of the visualized soft tissue structures of the upper abdomen. RAD/Chest 1 View (Portable) IMPRESSION: Findings consistent with moderate CHF/fluid overload. No focal consolidation is identified though evaluation of the lung bases is limited by patient positioning and body habitus. Electronically Signed: Robinson Heard, at 12:46 EDT Tel , Service support ,
--- NOTE | 2019-01-05 13:56 | CT_ITS ---
STUDY: CT BRAIN WITHOUT CONTRAST REASON FOR EXAM: Male, 68 years old. Mental status changes. Weakness and hypotension. RADIATION DOSAGE (If Supplied By Facility): CTDIvol = ( 44.99 ) mGy, DLP = ( 829.85 ) mGycm TECHNIQUE: Transaxial CT imaging of the brain was performed without administration of intravenous contrast material. Individualized dose optimization techniques were used for this CT. COMPARISON: Comparison is made with prior study dated September 13, 2018. FINDINGS: Normal soft tissue structures. Normal calvarium. There is mild cerebral atrophy with widening of the extra-axial spaces and ventricular dilatation. Normal white matter tracts of the cerebral hemispheres. Normal basal ganglia and thalami. Normal brainstem. Normal cerebellum. There is no intracranial hemorrhage. There are no findings of an acute ischemic infarction. Atherosclerotic calcification of the vertebral arteries and cavernous portions of the internal carotid arteries bilaterally. Normal visualized paranasal sinuses. CT/Brain/Head without Contrast IMPRESSION: Chronic involutional changes of the brain. Electronically Signed: Meek Perez, at 15:06 EDT , Service support ,
--- NOTE | 2019-01-05 16:44 | EKG12_ITS ---
Test Reason : REPEAT Blood Pressure : / mmHG Vent. Rate : 081 BPM Atrial Rate : 081 BPM P-R Int : 222 ms QRS Dur : 098 ms QT Int : 408 ms P-R-T Axes : 070 025 060 degrees QTc Int : 473 ms Sinus rhythm with 1st degree A-V block with Premature atrial complexes Low voltage QRS Incomplete right bundle branch block Septal infarct , age undetermined Abnormal ECG Confirmed by ENZO LEWIS ([id number]), video effects editor JUDITH CABRALES ([id number]) on 01/11/2019 8:48:47 AM Referred By: ISMAEL Confirmed By:ENZO LEWIS
[2019-01-05] MEDS: Mag Hydrox/Al Hydrox/Simeth 30 ML UDC PO (16:49)
[2019-01-05] MEDS: Pantoprazole Sodium 40 MG Tablet PO (16:49)
--- NOTE | 2019-01-05 17:23 | DCINST.ED_ITS ---
ED Disposition - Plan for ED Patient: Disposition: Home or Assisted Living Instructions: WEAKNESS, Unk Cause Referrals: Heraclio Whitehead MD [Primary Care Provider] - As soon as possible Additional Instructions: His labs in the emergency department unremarkable today. After a small half a liter fluid bolus his systolic blood pressure was consistently over 100. He has been mentating well. He knows day, month and year. Follow-up with dialysis tomorrow. Follow-up with his primary care physician or the bilingual medical receptionist of your nursing facility.
--- NOTE | 2019-01-05 18:54 | ED.RN ---
REPORT TO DETENTION. PT AWAKE AND COOPERATIVE.
== END 2019-01-05 18:56 | disposition home or self-care (01) ==
PROVIDERS: Emergency Provider Emergency Medicine; Family Provider Internal Medicine; PCP Internal Medicine
DX: I95.9 Hypotension, unspecified (principal); R41.82 Altered mental status, unspecified; I48.91 Unspecified atrial fibrillation; I12.0 Hypertensive chronic kidney disease with stage 5 chronic kidney disease or end stage renal disease; N18.6 End stage renal disease; J44.9 Chronic obstructive pulmonary disease, unspecified; Z99.2 Dependence on renal dialysis; Z79.01 Long term (current) use of anticoagulants; Z79.51 Long term (current) use of inhaled steroids; Z79.899 Other long term (current) drug therapy
CPT/HCPCS: 36415; 70450; 71045; 80048; 82962; 83605; 84484; 85025; 87040; 93005; 99285; A4216

== ENCOUNTER 2019-01-06 15:41 | Observation (INO) | payer MEDICARE, SELFPAY ==
[2019-01-05 11:07] VITALS: BMI 52.3
[2019-01-06] VITALS (12 sets, daily range): BP systolic 59–126; BP diastolic 34–75; PULSE 72–86; RESP 16–23; TEMP 36.4–36.8; O2SAT 95–99; BMI 51.6; BMI 51.7; BMI 50.2
--- NOTE | 2019-01-06 16:08 | RAD_ITS ---
STUDY: X-RAY CHEST REASON FOR EXAM: Male, 68 years old. Hypotension. TECHNIQUE: Single AP portable view of the chest. COMPARISON: January 05, 2019. FINDINGS: Stable right jugular hemodialysis catheter. There is minimal linear atelectasis at the right lung base. The lungs appear otherwise clear. There is no demonstrated pleural abnormality. There is mild cardiac enlargement. Normal mediastinum and tyron. Normal visualized pulmonary arteries. Normal visualized aortic arch and descending thoracic aorta. There is an increased kyphosis of the thoracic spine. The thoracic spine is obscured by the mediastinum. There is no demonstrated abnormality of the visualized soft tissue structures of the upper abdomen. RAD/Chest 1 View (Portable) IMPRESSION: 1. Cardiomegaly without evidence of pulmonary edema. 2. Right basilar atelectasis. 3. Stable hemodialysis catheter. Electronically Signed: Hebert Farrell DO at 16:37 EDT Tel [phone], Service support ,
--- NOTE | 2019-01-06 16:08 | CT_ITS ---
STUDY: CT BRAIN WITHOUT CONTRAST REASON FOR EXAM: Male, 68 years old. Altered mental status. RADIATION DOSAGE (If Supplied By Facility): CTDIvol = ( 44.99 ) mGy, DLP = ( 829.85 ) mGycm TECHNIQUE: Transaxial CT imaging of the brain was performed without administration of intravenous contrast material. Individualized dose optimization techniques were used for this CT. COMPARISON: January 05, 2019. FINDINGS: Normal soft tissue structures. Normal calvarium. Normal size ventricles and extra-axial spaces for the patient's age. Normal white matter tracts of the cerebral hemispheres. Normal basal ganglia and thalami. Normal brainstem. Normal cerebellum. There is no intracranial hemorrhage. There are no findings of an acute ischemic infarction. Normal visualized paranasal sinuses. CT/Brain/Head without Contrast IMPRESSION: No acute intracranial or calvarial abnormality or major interval change. Electronically Signed: Hebert Farrell DO at 17:03 EDT Tel [phone], Service support ,
--- NOTE | 2019-01-06 16:09 | EKG12_ITS ---
Test Reason : HYPOTENSION Blood Pressure : / mmHG Vent. Rate : 085 BPM Atrial Rate : 085 BPM P-R Int : 214 ms QRS Dur : 102 ms QT Int : 398 ms P-R-T Axes : 080 -04 040 degrees QTc Int : 473 ms Sinus rhythm with 1st degree A-V block with occasional Premature ventricular complexes and Premature atrial complexes Low voltage QRS Incomplete right bundle branch block Septal infarct , age undetermined Abnormal ECG Confirmed by JENNIFER CORTES, MAXIME ([id number]), newspaper editor managing JUDITH CABRALES ([id number]) on 01/11/2019 8:34:43 AM Referred By: Tree Fung Confirmed By:PRADEEP RODRIGUEZ MD
--- NOTE | 2019-01-06 16:10 | ED.RN ---
CALLED STAFF AT [facility]. PER GRUPO AT [facility] PT HAS HAD HYPOTENSION, 80/40'S, 60/20'S, AND HYPOXIA, 80% ON 6L NC, AND CONFUSION. STATES THE PRESIDENT IS RAHMAN AND HE HAD SOMEONE IN HIS ROOM DANCING FOR HIM. MADE AWARE.
--- NOTE | 2019-01-06 16:11 | ED.DCSUM_ITS ---
- ER Visit Summary Date of Service: 01/06/19 Chief Complaint: Hypotension History of Present Illness: The patient is a 68 M presenting with hypotension after dialysis. Patient completed a course of dialysis today. According to detention staff his blood pressure was 60/20. He had a reported episode of confusion. They state he made sexual comments to one of the nurses. This is not his usual behavior. Patient does recall making these comments. He was unable to name the current president. He denies any current symptoms. He has a mild cough. He denies fever, chest pain, shortness of breath. Denies abdominal pain, nausea, vomiting, diarrhea. He denies headache. Denies other complaints. He was seen in the ED yesterday for similar complaints. Physical Examination: Vitals are stable. Blood pressure 116/71. Patient is afebrile. Alert no acute distress. HEENT exam is unremarkable. Neck is supple. Lungs are clear and equal bilaterally. Heart is regular rate and rhythm. Abdomen is soft nontender obese nondistended. Extremities are unremarkable. Skin is warm and dry. No focal neurologic deficit. Remainder of exam is unremarkable. Emergency Department Course and Treatment: EKG is sinus rate of 85 with occasional PVCs. Chest x-ray shows cardiomegaly without evidence of pulmonary edema. Right basilar atelectasis. Stable hemodialysis catheter. CT head shows no acute process. CBC shows hemoglobin 12.8, platelet 98. Chemistries show glucose 130, BUN 35, creatinine 3.84. Troponin is negative. Lactic acid is normal. Blood cultures were sent. ABG shows pH 7.296, PCO2 64.5, PO2 107. Repeat blood pressure 79/57. He was given a fluid bolus. Blood pressure then came up to 128/68. Patient continues to have episodes of confusion. Discussed with the hospitalist for admission. Disposition: Admission Impression: Hypotension, change in mental status This note was generated with [employer] dictation software. It may contain incorrect words, spelling, and punctuation that were not noted in review of the chart prior to signing ED Disposition - Plan for ED Patient: Referrals: Heraclio Whitehead MD [Primary Care Provider] -
[2019-01-06 17:00] LABS: Absolute Lymphocyte Count 0.49 X10^3/uL (0.83-4.51); Absolute Neutrophil Count 5.1 X10^3/uL (2.0-7.7); Basophil# 0.03 X10^3/uL; Basophil% 0.5 % (0-1); Eosinophil# 0.25 X10^3/uL; Eosinophils% 3.9 % (0-5); Hematocrit 42.2 % (40-54); Hemoglobin 12.8 g/dL (13.0-16.5); Lymphocyte # 0.49 X10^3/ul (4.0); Lymphocyte % 7.6 % (19-41); Mean Corp Hgb Conc 30.3 g/dL (32-36); Mean Corpuscular Hgb 28.6 pg (27.0-32.0); Mean Corpuscular Volume 94.2 fL (80-94); Mean Platelet Vol. 11.1 fl (6.2-12.0); Monocyte# 0.54 X10^3/uL; Monocyte% 8.3 % (0-10); NRBC Flagged by Analyzer 0 % (0-5); Neutrophil # 5.14 X10^3/uL (2.7-7.7); Neutrophil % 79.2 % (47-70); POSITIVE COUNT YES; POSITIVE DIFFERENTIAL YES; Platelet Count 98 K/mm3 (150-450); RBC Distribution Width CV 16.2 % (11.6-14.6); RBC Distribution Width SD 56.4 fl (35.1-43.9); Red Blood Count 4.48 M/mm3 (4.6-6.2); White Blood Count 6.5 K/mm3 (4.4-11.0)
[2019-01-06 17:10] LABS: Differential Indicated SCAN CRITERIA MET
[2019-01-06 17:13] LABS: Anion Gap 8 (5-15); BUN 35 mg/dL (7-18); BUN/Creat Ratio 9.1 RATIO (10-20); Calcium,Total 8.6 mg/dL (8.5-10.1); Chloride 98 mmol/L (98-107); Creatinine, Serum 3.84 mg/dL (0.70-1.30); EST Glomerular Filtration Rate 17 mL/min (>60); Est Glom Filt Rate - Afr Amer 20 mL/min (>60); Estimated Creatinine Clearance 16.61 ml/min; Glucose 130 mg/dL (74-106); Potassium 3.6 mmol/L (3.5-5.1); Sodium Level 137 mmol/L (136-145)
[2019-01-06 17:17] LABS: Lactic Acid 1.6 mmol/L (0.4-2.0)
[2019-01-06 17:30] LABS: Base Excess 5 mmol/L (-2 to +2); Bicarbonate 31.5 mmol/L (22-26); Blood Gas Specimen Type ART; O2 Delivery Device Nasal Can; PO2 107 mmHG (75-100); SITE R Radial; SO2 97 % (95-99); Time Given 1722; Total Carbon Dioxide 33 mmol/L; pCO2 64.5 mmHg (35-45)
--- NOTE | 2019-01-06 17:38 | ED.RN ---
PT HYPOTENSIVE ON TRANSFER OF CARE FROM [facility]. DR. KILLIAN INFORMED. NS FLUID BOLUS ORDERED AND HUNG. 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 PT REMAINS HYPOTENSIVE AT THIS TIME. DR. KILLIAN NOTIFIED. WILL CONTINUE TO MONITOR.
[2019-01-06 17:58] LABS: Platelet Estimate MOD DEC (ADEQ)
[2019-01-06 17:59] LABS: Anisocytosis 1+; Red Cell Morphology N CHROM NORMAL (NORM C&C)
--- NOTE | 2019-01-06 19:08 | PCM.HP.STD ---
Problem List (1) Hypotension Status: Acute Qualifiers: Hypotension type: unspecified hypotension type Qualified Code(s): I95.9 - Hypotension, unspecified History of Present Illness Date of Admission: 01/06/19 Chief Complaint: hypotension. confusion The patient is a 68 year old M [facility] because of low blood pressure. Blood pressure was 60/20 after dialysis. Patient was also noted to be confused and having inappropriate sexual comments to the nurses. This was atypical behavior for the patient. Patient himself has no recollection of these events. Patient otherwise feels well. In the emergency room, patient's blood pressure was noted to be in the 80s and did receive IV fluids in the emergency otherwise feels well at this time. [] Past Medical History Past Medical History (Chronic Problems): Chronic Problems (Last Reviewed 01/06/19 @ 19:10 by Tree Fung DO) ESRD (end stage renal disease) on dialysis (Chronic) C. difficile diarrhea (Chronic) Benign hypertension (Chronic) BPH (benign prostatic hyperplasia) (Chronic) Depression (Chronic) Hyperlipidemia (Chronic) IgA nephropathy (Chronic) Chronic gout (Chronic) Diabetes mellitus, type 2 (Chronic) DIET CONTROLLED Diastolic Dysfunction EF 60% (Chronic) Fatty liver (Chronic) KATHY on CPAP (Chronic) 16 CM WATER COPD (chronic obstructive pulmonary disease) (Chronic) With chronic respiratory failure On 3 L nasal cannula Left kidney mass (Chronic) Super obesity (Chronic) bmi 64 Chronic low back pain (Chronic) Pulmonary hypertension (Chronic) Paroxysmal atrial fibrillation (Chronic) Anemia of chronic renal failure (Chronic) Hyperkalemia (Chronic) Falls frequently (Chronic) Medical History: Medical History (Last Reviewed 01/06/19 @ 19:10 by Tree Fung DO) ESRD (end stage renal disease) on dialysis (Chronic) N18.6, Z99.2 C. difficile diarrhea (Chronic) A04.7 Hemorrhage of arteriovenous fistula (Resolved) T82.838A Benign hypertension (Chronic) I10 BPH (benign prostatic hyperplasia) (Chronic) Depression (Chronic) F32.9 Hyperlipidemia (Chronic) E78.5 IgA nephropathy (Chronic) N02.8 Chronic gout (Chronic) [id number].[id number] Diabetes mellitus, type 2 (Chronic) E11.9 DIET CONTROLLED Diastolic Dysfunction EF 60% (Chronic) COPD (chronic obstructive pulmonary disease) (Chronic) J44.9 With chronic respiratory failure On 3 L nasal cannula Left kidney mass (Chronic) N28.89 Chronic low back pain (Chronic) M54.5, G89.29 Pulmonary hypertension (Chronic) I27.2 Paroxysmal atrial fibrillation (Chronic) I48.0 Vertebral osteomyelitis, acute (Inactive) M46.20 12/22/14 24 hours no growth. 12/21/14 1/2 cultures w/ staph aureus. Suspected source vertebral osteomyelitis, unable to confirm as unable to obtain GOLD standard MRI secondary to habitus. Rhabdomyolysis (Inactive) M62.82 Unclear exact etiology, resolved. Osteomyelitis (Inactive) M86.9 distal phalanx of the middle finger on the left hand Anemia of chronic renal failure (Chronic) N18.9, D63.1 Atrial fibrillation I48.91 Allergies mirtazapine [From Remeron] Allergy (Verified 01/06/19 15:50) forgetful, doesn't remember anything Sulfa (Sulfonamide Antibiotics) Allergy (Verified 01/06/19 15:50) bleeding from kidneys aspirin Adverse Reaction (Verified 01/06/19 15:50) Nausea oxycodone HCl [From Percodan] Adverse Reaction (Verified 01/06/19 15:50) Nausea oxycodone terephthalate [From Percodan] Adverse Reaction (Verified 01/06/19 15:50) Nausea Home Medications: Ambulatory Orders Medication Instructions Recorded Calcium Acetate [Phoslo Gel Cap] 1,334 mg PO BID 11/08/16 ferrous sulfate 325 mg (65 mg 325 mg PO BID tab 05/12/18 iron) tablet,delayed release umeclidinium 62.5 mcg/actuation 1 inh INHALATION LUNCH 05/12/18 blister powder for inhalation B Complex W-C No.20/Folic Acid 1 mg PO DAILY@1200 08/18/18 [Virt-Caps Softgel] Docusate Sodium [Colace] 200 mg PO BID 08/18/18 Escitalopram Oxalate [Lexapro] 10 mg PO DAILY 08/18/18 Fluticasone/Vilanterol [Breo 1 ea IH DAILY 08/18/18 Ellipta 100-25 Mcg INH] Gabapentin [Neurontin] 300 mg PO DAILY 08/18/18 Magnesium Hydroxide [Milk Of 30 ml PO DAILY PRN PRN 08/18/18 Magnesia] Midodrine HCl 10 mg PO DAILY 08/18/18 Ondansetron HCl [Zofran] 4 mg PO Q6H PRN PRN 08/18/18 Pantoprazole Sodium [Protonix] 40 mg PO DAILY 08/18/18 Cholestyramine (with Sugar) 4 gm PO BID 01/05/19 [Questran Packet] Pramipexole Di-HCl [Mirapex] 0.5 mg PO QHS 01/05/19 Warfarin Sodium [Coumadin] 2 mg PO QHS 01/05/19 Surgical History: Surgical History (Last Reviewed 01/06/19 @ 19:10 by Tree Fung DO) History of arteriovenostomy for renal dialysis Z99.2 History of cholecystectomy Z90.49 History of colonoscopy Z98.890 History of total bilateral knee replacement Z96.653 Status post biopsy of kidney Z98.890 Surgical History: colectomy, total knee arthroplasty, - Psychiatric History: No pertinent psych hx Smoking Status: Never smoker Tobacco Use: Non-smoker - *Family History Maternal History Items: COPD, Diabetes, Heart Disease, Hypertension - He, Pulmonary Disease, Renal Disease Paternal History Items: No pertinent history Review of Systems Constitutional: Denies: Anorexia, Chills, Fever Eyes: Denies: Cataracts, Double vision HEENT: Denies: Head Aches, Sinus Congestion, Sinus Drainage Cardiovascular: Denies: Chest Pain, Palpitations Respiratory: Denies: Cough, Shortness of breath at rest, Sputum production Gastrointestinal: Reports: Constipation. Denies: Abdominal Pain, Nausea, Vomiting Genitourinary: Reports: - - Patient does not make urine Musculoskeletal: Denies: Joint Pain, Joint Tenderness Skin: Denies: Dryness, Jaundice Neurological: Denies: Balance problems, Blurred vision, Double vision, Change in Speech Psychiatric: Denies: Anxiety, Depression Hematologic/ Lymphatic: Denies: Easy Bruising, Easy Bleeding, Hx of blood clot Comment: Review of systems are otherwise negative except for as mentioned above and in the HPI. VTE Information - Inpt Only VTE Present on Admission: No VTE Mechan Device Prophylaxis: None VTE Pharm Prophylaxis ordered?: No Reason prophylaxis not ordered:: Procedure Not Indicated Patient Problems: Active and Suspected Problems (Last Reviewed 01/06/19 @ 19:10 by Tree Fung DO) Hypotension (Acute) - Physical Exam Vitals/I&O's: Vital Signs Temp Pulse Resp BP Pulse Ox 36.8 C 84 20 H 84/47 L 96 01/06/19 15:47 01/06/19 18:29 01/06/19 18:29 01/06/19 18:29 01/06/19 18:29 Oxygen Flow Rate (L/min) 2 Oxygen Delivery Method Nasal Cannula Weight: 145.2 kg Body Mass Index (BMI) 51.6 Finger Stick Blood Glucose 97 Intake and Output for Last 24 Hours 01/04/19 01/05/19 01/06/19 23:59 23:59 23:59 Intake Total 1000 / 999 Balance 1000 / 999 General: Alert, Cooperative, No apparent distress HEENT: Atraumatic, PERRLA, Normocephalic Oral: Moist Mucosa, No Gingival or Mucosal Lesions/ Ulcerations Neck: No Nodes, Trachea Midline Lungs: Clear to auscultation, Normal air movement, No rhonchi, No wheeze, No rales Cardiovascular: Regular rate, Regular Rhythm, Normal S1, Normal S2, No murmurs Abdomen: Bowel Sounds Present, Soft, Non Tender, Non-Distended, No Hepato-splenomegaly Extremities: No Calf Tenderness, Edema Skin: - - Venous stasis dermatitis. Scabbed lesions on his right anterior mc. Neurological: Cranial nerves II-XII grossly intact, Motor Exam 5/5 strength throughout Psych/Mental Status: Normal Affect, Appropriate Laboratory Results 01/06/19 16:45: WBC 6.5, RBC 4.48 L, Hgb 12.8 L, Hct 42.2, MCV 94.2 H, MCH 28.6, MCHC 30.3 L, RDW Std Deviation 56.4 H, RDW Coeff of Dixie 16.2 H, Plt Count 98 L, MPV 11.1, Immature Gran % (Auto) 0.500, Neut % (Auto) 79.2 H, Lymph % (Auto) 7.6 L, [place] % (Auto) 8.3, Eos % (Auto) 3.9, Baso % (Auto) 0.5, Absolute Neuts (auto) 5.1, Absolute Lymphs (auto) 0.49 L, Nucleated RBC % 0, Differential Comment , Platelet Estimate MOD DEC, RBC Morphology N CHROM, Anisocytosis 1+ 01/06/19 16:45: Sodium 137, Potassium 3.6, Chloride 98, Carbon Dioxide 31.0, Anion Gap 8, BUN 35 H, Creatinine 3.84 H, Estim Creat Clear Calc 16.61, Est GFR (MDRD) Af Amer 20 L, Est GFR (MDRD) Non-Af 17 L, BUN/Creatinine Ratio 9.1 L, Glucose 130 H, Calcium 8.6, Troponin I < 0.015 01/06/19 16:45: Lactic Acid 1.6 01/06/19 17:24: Specimen Type ART, Sample Site R Radial, pH 7.30 L, Bicarbonate Actual 31.5 H, POC Total CO2 33, Base Excess 5 H, O2 Saturation 97, ABG pCO2 64.5 H, ABG pO2 107 H, O2 Delivery Device Nasal Can, Liter Flow 4.0, Blood Gas Notified Whom ED MD, Blood Gas Notified Time 1722 Clinical Impression(s) from Imaging Studies Brain CT 01/06/19 16:08 IMPRESSION: No acute intracranial or calvarial abnormality or major interval change. Electronically Signed: Hebert Farrell DO at 17:03 EDT Tel [phone], Service support , Chest X-Ray 01/06/19 16:08 IMPRESSION: 1. Cardiomegaly without evidence of pulmonary edema. 2. Right basilar atelectasis. 3. Stable hemodialysis catheter. Electronically Signed: Hebert Farrell DO at 16:37 EDT Tel [phone], Service support , Assessment/Plan All Active Problems (Last Reviewed 01/06/19 @ 19:10 by Tree Fung DO) Problem with dialysis access (Acute) Acute encephalopathy (Acute) Hypotension (Acute) Hypotension (Acute) Shock (Acute) Acute respiratory failure (Acute) Diarrhea (Resolved) Hemorrhage of arteriovenous fistula (Resolved) Finger necrosis (Resolved) Yeast dermatitis (Acute) Enterococcal bacteremia (Resolved) 1. Hypotension Patient was read as a very low at 60/20 at the assisted. Patient has not been that low here. So I cannot say for sure if that was an accurate reading at the assisted but will monitor the patient here. Review of past vitals has shown low blood pressure as well in the 80s. I suspect that this is where the patient lives primarily. Patient is already on midodrine from the assisted daily. I will increase the dosing to twice daily Plan is just to monitor him here if he remains stable then he can be discharged back to assisted on the . 2. Encephalopathy Patient is appropriate here but that the assisted was making inappropriate comments to staff which was apparently new phenomenon for him I am not sure if patient has had some transient encephalopathy due to decreased cerebral perfusion if the blood pressure at the assisted was indeed as low as a stated Could be toxic related with his gabapentin and Mirapex that he takes but he is currently stable at this time so I do not think that those were an acute issue Therefore I feel that the encephalopathy is more metabolic possibly related with transient hypoperfusion Patient did have an ABG that showed a slightly elevated carbon dioxide. Feels bright more chronic as patient has underlying KATHY and does not use a CPAP. 3. End-stage renal disease On dialysis every Friday. Had dialysis today. Would be due for his next dialysis session on January 08 If it looks like the patient is going to require hospitalization on the first, then I would consult nephrology. But since then plan just watch the patient overnight and that he would not be due for dialysis for another 2 days we will hold off on nephrology consultation at this time. 4. VTE prophylaxis: Low risk as he is observation status at this time. 5. Advanced care planning. Confirmed with the patient that he is DNR Comfort Care arrest. These are the also reflected on his orders from the assisted Code Visit OBSV E&M: 09932 Initial observation care L3
--- NOTE | 2019-01-06 19:21 | ED.RN ---
PT REMAINS HYPOTENSIVE POST SECOND BOLUS. DR. KILLIAN AWARE, NO NEW ORDERS AT THIS TIME. WILL CONTINUE TO MONITOR.
[2019-01-06] MEDS: Acetaminophen 325 MG Tablet 650 MG PO (21:12)
[2019-01-06] MEDS: Senna Tablet 1 TABLET PO (21:58)
[2019-01-06] MEDS: Cholestyramine/Sucrose 4 GM/PACKET PO (21:59)
[2019-01-06] MEDS: Midodrine HCl 5 MG Tablet 10 MG PO (21:59)
[2019-01-06] MEDS: Pramipexole Di-HCl 0.5 MG Tablet PO (21:59)
[2019-01-06] MEDS: Docusate Sodium 100 MG Capsule 200 MG PO (21:59)
[2019-01-07] VITALS (15 sets, daily range): BP systolic 66–116; BP diastolic 32–71; PULSE 64–81; RESP 12–18; TEMP 36.1–36.7; O2SAT 95–99
[2019-01-07 06:15] LABS: Anion Gap 10 (5-15); BUN 44 mg/dL (7-18); BUN/Creat Ratio 9.6 RATIO (10-20); Calcium,Total 8.4 mg/dL (8.5-10.1); Chloride 99 mmol/L (98-107); Creatinine, Serum 4.57 mg/dL (0.70-1.30); EST Glomerular Filtration Rate 14 mL/min (>60); Est Glom Filt Rate - Afr Amer 17 mL/min (>60); Estimated Creatinine Clearance 13.96 ml/min; Glucose 110 mg/dL (74-106); Potassium 3.9 mmol/L (3.5-5.1); Sodium Level 136 mmol/L (136-145)
[2019-01-07] MEDS: Acetaminophen 325 MG Tablet 650 MG PO (06:33)
[2019-01-07] MEDS: Budesonide Respules 0.5 MG/2 ML AMPUL.NEB. INHALATION ×2 (07:11→19:20)
[2019-01-07] MEDS: Ipratropium/Albuterol Sulfate 3 ML AMPUL.NEB INHALATION ×3 (07:11→19:20)
--- NOTE | 2019-01-07 08:30 | PCM.PROGNOTE ---
Patient Problems: Active and Suspected Problems (Last Updated 01/07/19 @ 07:23 by Estuardo Richardson MD) Hypotension (Acute) Subjective: Chief complaint: Follow-up after admission for hypotension and transient encephalopathy. Patient seen and examined. No acute events overnight. This morning, patient is fully alert, oriented x3. He denies any symptoms. Denied chest pain or shortness of breath. Denied dizziness, lightheadedness, syncope or presyncope. Denies fever or chills. Denies abdominal pain, nausea vomiting. He has been afebrile, heart rate stable, blood pressure improved, 90 systolic, pulse ox is 95% on 2 L. - Physical Exam Vitals/I&O's: Vital Signs Temp Pulse Resp BP Pulse Ox 97.5 F L 70 18 93/56 L 95 01/07/19 02:45 01/07/19 07:08 01/07/19 02:45 01/07/19 02:45 01/07/19 02:45 Oxygen Flow Rate (L/min) 2 Oxygen Delivery Method Nasal Cannula Weight: 311 lb 1.156 oz Body Mass Index (BMI) 50.2 Finger Stick Blood Glucose 97 Intake and Output for Last 24 Hours 01/05/19 01/06/19 01/07/19 23:59 23:59 23:59 Intake Total 1000 / 1640 640 / 640 Output Total 0 / 0 Balance 1000 / 1640 640 / 640 General: Alert, Oriented x3, Cooperative, No apparent distress HEENT: Atraumatic, PERRLA, EOMI, Normocephalic Oral: Moist Mucosa, No Gingival or Mucosal Lesions/ Ulcerations Neck: Supple, No JVD, Negative Carotid Bruits, Trachea Midline, Thyroid Normal Size and Texture Lungs: Clear to auscultation, Normal air movement, No rhonchi, No wheeze, No rales, Diminished Cardiovascular: Regular rate, Regular Rhythm, Normal S1, Normal S2, PMI Normal Abdomen: Bowel Sounds Present, Soft, Non Tender, Non-Distended, No Hepato-splenomegaly, Obese Extremities: No clubbing, No cyanosis, Edema - Trace edema, venous insufficiency. Skin: No rashes, No breakdown Lymphatic: No Cervical, Supraclavicular, or Inguinal Adenopathy Neurological: Cranial nerves II-XII grossly intact, Motor Exam 5/5 strength throughout Psych/Mental Status: Normal Affect, Appropriate, Alert and oriented to time, place, person, mood and affect Laboratory Results 01/06/19 16:45: WBC 6.5, RBC 4.48 L, Hgb 12.8 L, Hct 42.2, MCV 94.2 H, MCH 28.6, MCHC 30.3 L, RDW Std Deviation 56.4 H, RDW Coeff of Dixie 16.2 H, Plt Count 98 L, MPV 11.1, Immature Gran % (Auto) 0.500, Neut % (Auto) 79.2 H, Lymph % (Auto) 7.6 L, Brooke % (Auto) 8.3, Eos % (Auto) 3.9, Baso % (Auto) 0.5, Absolute Neuts (auto) 5.1, Absolute Lymphs (auto) 0.49 L, Nucleated RBC % 0, Differential Comment , Platelet Estimate MOD DEC, RBC Morphology N CHROM, Anisocytosis 1+ 01/06/19 16:45: Sodium 137, Potassium 3.6, Chloride 98, Carbon Dioxide 31.0, Anion Gap 8, BUN 35 H, Creatinine 3.84 H, Estim Creat Clear Calc 16.61, Est GFR (MDRD) Af Amer 20 L, Est GFR (MDRD) Non-Af 17 L, BUN/Creatinine Ratio 9.1 L, Glucose 130 H, Calcium 8.6, Troponin I < 0.015 01/06/19 16:45: Lactic Acid 1.6 01/06/19 17:24: Specimen Type ART, Sample Site R Radial, pH 7.30 L, Bicarbonate Actual 31.5 H, POC Total CO2 33, Base Excess 5 H, O2 Saturation 97, ABG pCO2 64.5 H, ABG pO2 107 H, O2 Delivery Device Nasal Can, Liter Flow 4.0, Blood Gas Notified Whom ED , Blood Gas Notified Time 1722 01/07/19 05:18: Sodium 136, Potassium 3.9, Chloride 99, Carbon Dioxide 27.0, Anion Gap 10, BUN 44 H, Creatinine 4.57 H, Estim Creat Clear Calc 13.96, Est GFR (MDRD) Af Amer 17 L, Est GFR (MDRD) Non-Af 14 L, BUN/Creatinine Ratio 9.6 L, Glucose 110 H, Calcium 8.4 L Clinical Impression(s) from Imaging Studies Brain CT 01/06/19 16:08 IMPRESSION: No acute intracranial or calvarial abnormality or major interval change. Electronically Signed: Hebert Farrell DO at 17:03 EDT Tel [phone], Service support , Chest X-Ray 01/06/19 16:08 IMPRESSION: 1. Cardiomegaly without evidence of pulmonary edema. 2. Right basilar atelectasis. 3. Stable hemodialysis catheter. Electronically Signed: Hebert Farrell DO at 16:37 EDT Tel [phone], Service support , Current Medications Acetaminophen (Tylenol) 650 mg PO Q6H PRN PRN PRN Reason: Pain Score 1-3/Temp > 100.7 F Last Admin: 01/07/19 06:33 Dose: 650 mg Documented by: Albuterol/Ipratropium (Duoneb) 3 ml INHALATION Q6HWA.RT MADELEINE Last Admin: 01/07/19 07:11 Dose: 3 ml Documented by: Budesonide (Pulmicort Aerosol) 0.5 mg INHALATION Q12H.RT [facility] Last Admin: 01/07/19 07:11 Dose: 0.5 mg Documented by: Calcium Acetate (Phoslo Gel Cap) 1,334 mg PO BIDCM [facility] Cholestyramine Resin (Questran 4gm Packet) 4 gm PO BID [facility] Last Admin: 01/06/19 21:59 Dose: 4 gm Documented by: Dextrose (D50w Syringe) 0 gm IV X1 PRN; Protocol PRN Reason: Hypoglycemia Docusate Sodium (Colace) 200 mg PO BID [facility] Last Admin: 01/06/19 21:59 Dose: 200 mg Documented by: Escitalopram Oxalate (Lexapro) 10 mg PO DAILY [facility] Ferrous Sulfate (Ferrous Sulfate) 325 mg PO BID@1200,1700 [facility] Gabapentin (Neurontin) 300 mg PO DAILY [facility] Glucagon () 1 mg IM .X1 PRN PRN Reason: Hypoglycemia Sodium Chloride () 250 mls @ 15 mls/hr IV .[id number] PRN PRN Reason: Saline Flush Magnesium Hydroxide (Milk Of Magnesia) 30 ml PO DAILY PRN PRN PRN Reason: Constipation Midodrine (Proamatine) 10 mg PO BID [facility] Last Admin: 01/06/19 21:59 Dose: 10 mg Documented by: Multivit/Ca Carb/B Cmplx/FA/Prenat (Nephrocaps, Renaphro) 1 capsule PO DAILY@1200 [facility] Ondansetron HCl (Zofran Odt) 4 mg PO Q6H PRN PRN PRN Reason: NAUSEA Ondansetron HCl (Zofran) 4 mg IV Q8H PRN PRN PRN Reason: NAUSEA/VOMITING Pantoprazole Sodium (Protonix) 40 mg PO DAILY [facility] Pramipexole Dihydrochloride (Mirapex) 0.5 mg PO QHS [facility] Last Admin: 01/06/19 21:59 Dose: 0.5 mg Documented by: Senna (Senokot) 1 tablet PO BID [facility] Last Admin: 01/06/19 21:58 Dose: 1 tablet Documented by: Sodium Chloride () 10 - 40 ml IV UD PRN PRN Reason: SALINE FLUSH Warfarin Sodium (Coumadin (Pbkc)) 2 mg PO DAILY@1700 [facility] Medical Necessity - Tobacco Use Smoking Status: Never smoker Tobacco Use: Non-smoker Assessment/Plan All Active Problems (Last Updated 01/07/19 @ 07:23 by Estuardo Richardson MD) Hypotension (Acute) This is a 68 years old male patient was transferred from senior living to the ED because of hypotension and transient encephalopathy and he was admitted for monitoring and evaluation. #1 hypotension: Reportedly, blood pressure was 60/20 at the senior living. Patient does have chronic hypotension and reportedly, systolic blood pressure has been around 80s to 90s. He has been on midodrine. Today, blood pressure improved, up to 90 systolic. Dose of midodrine increased. No evidence of infection. EKG revealed normal sinus rhythm with occasional PVCs, no acute changes. Troponin was negative. Chest x-ray showed no acute findings. Blood cultures pending. Today, patient is alert and noted x3. Blood pressure improved and he has been afebrile. Plan to continue monitoring blood pressure, will check orthostatic vitals. #2 transient encephalopathy: Reportedly, patient made unusual comments at the senior living. Today, he is alert and oriented x3. CT scan brain showed no acute findings. No focal deficit on physical exam. #3 ESRD on hemodialysis: On dialysis on Mondays, Wednesdays and Fridays. Potassium is normal. Plan to consult nephrology. #4 paroxysmal atrial fibrillation: Heart rate stable, he is not on any medication for rate control, on Coumadin for anticoagulation, will check INR. #5 type 2 diabetes mellitus: Diet-controlled, blood sugar stable. #6 depression, continue Lexapro. #7 chronic COPD/chronic respiratory failure: On oxygen at the senior living 3 L. Today, he is on oxygen at 2 L. Chest x-ray showed no acute findings. Continue DuoNeb, Pulmicort twice daily. #8 chronic anemia: Hemoglobin and hematocrit are stable, continue iron supplement. #9 DVT prophylaxis: On Coumadin. Will check INR. This note was generated with [employer] dictation software. It may contain incorrect words, spelling, and punctuation that were not noted in checking the note before signing. Code Visit OBSV E&M: 37188 Subsequent observation care L2
[2019-01-07 08:48] LABS: International Normalized Ratio 2.8
[2019-01-07] MEDS: Midodrine HCl 5 MG Tablet 10 MG PO ×2 (09:09→21:29)
[2019-01-07] MEDS: Cholestyramine/Sucrose 4 GM/PACKET PO ×2 (09:09→21:29)
[2019-01-07] MEDS: Docusate Sodium 100 MG Capsule 200 MG PO ×2 (09:09→21:30)
[2019-01-07] MEDS: Gabapentin 300 MG Capsule PO (09:10)
[2019-01-07] MEDS: Pantoprazole Sodium 40 MG Tablet PO (09:10)
[2019-01-07] MEDS: Calcium Acetate 667 MG Capsule 1334 MG PO ×2 (09:10→17:21)
[2019-01-07] MEDS: Senna Tablet 1 TABLET PO ×2 (09:10→21:30)
[2019-01-07] MEDS: Escitalopram Oxalate 10 MG Tablet PO (09:10)
--- NOTE | 2019-01-07 09:38 | NURSING ---
unable to do full set of orthostatic vs. Dr. Richardson made aware. Patient was barely able to sit up on EOB d/t weakness.
--- NOTE | 2019-01-07 10:04 | CASEMGMT ---
Addendum entered by Yaritza Pantoja 01/07/19 11:30: SW called pt's daughter, message left with pt's room phone number and this SW's number to return call. REYNA Kirk Original Note: Pt is here from [facility]. 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 SW faxed clinical updates to [facility]. SW spoke w/pt, he is in agreement w/returning to [facility] when ready. He does think his sister knows he is here, but asked if we can call his daughter Yanni. She is in [place] however, so we will wait to call a little later. SW will continue to follow. REYNA Kirk
--- NOTE | 2019-01-07 10:12 | CASEMGMT ---
POA form is in the echart, however it has Carmelina Bubba listed, pt had said his sister Chantale is POA. SW spoke w/pt in regard to POA form. Carmelina is pt's exwife's sister. Sharon, who is listed second, has . Get is pt's brother and in [place]. SW explained to pt that if he would like his sister Chantale to be his decision maker in the event he cannot make decisions, we should complete new POA forms. Pt states will speak to his sister and let SW know if he would like to complete new forms. REYNA Kirk
--- NOTE | 2019-01-07 11:37 | CASEMGMT ---
IMAN GRIFFITH NOTE: Reviewed TEIXEIRA form with pt. He denies having any questions. Form signed by pt, copy made and placed on chart, and original given to pt. Madi ASHLEY RN CM
[2019-01-07] MEDS: Ferrous Sulfate 325 MG Tablet PO ×2 (14:25→17:21)
[2019-01-07] MEDS: Folic Acid/Vitamin B Comp W-C 1 Capsule 1 CAP PO (14:25)
--- NOTE | 2019-01-07 17:32 | PCM.CONS.R ---
Problem List (1) ESRD (end stage renal disease) on dialysis Status: Chronic Consultation - Renal 01/07/19 PCP/ Referring MD: Requesting physician: Dr Richardson Primary care physician: Heraclio Whitehead MD Reason for Consultation:: ESRD - History of Present Illness History of Present Illness: The patient is a 68 year old M admitted to hospital with low BP. patient was apparently confused. now better. Last HD yesterday - Allergies Allergies: Allergies mirtazapine [From Remeron] Allergy (Verified 01/06/19 15:50) forgetful, doesn't remember anything Sulfa (Sulfonamide Antibiotics) Allergy (Verified 01/06/19 15:50) bleeding from kidneys aspirin Adverse Reaction (Verified 01/06/19 15:50) Nausea oxycodone HCl [From Percodan] Adverse Reaction (Verified 01/06/19 15:50) Nausea oxycodone terephthalate [From Percodan] Adverse Reaction (Verified 01/06/19 15:50) Nausea - Current Medications Current Medications: Current Medications Acetaminophen (Tylenol) 650 mg PO Q6H PRN PRN PRN Reason: Pain Score 1-3/Temp > 100.7 F Last Admin: 01/07/19 06:33 Dose: 650 mg Documented by: Albuterol/Ipratropium (Duoneb) 3 ml INHALATION Q6HWA.RT [facility] Last Admin: 01/07/19 13:17 Dose: 3 ml Documented by: Budesonide (Pulmicort Aerosol) 0.5 mg INHALATION Q12H.RT [facility] Last Admin: 01/07/19 07:11 Dose: 0.5 mg Documented by: Calcium Acetate (Phoslo Gel Cap) 1,334 mg PO BIDCM [facility] Last Admin: 01/07/19 17:21 Dose: 1,334 mg Documented by: Cholestyramine Resin (Questran 4gm Packet) 4 gm PO BID [facility] Last Admin: 01/07/19 09:09 Dose: 4 gm Documented by: Dextrose (D50w Syringe) 0 gm IV X1 PRN; Protocol PRN Reason: Hypoglycemia Docusate Sodium (Colace) 200 mg PO BID [facility] Last Admin: 01/07/19 09:09 Dose: 200 mg Documented by: Escitalopram Oxalate (Lexapro) 10 mg PO DAILY [facility] Last Admin: 01/07/19 09:10 Dose: 10 mg Documented by: Ferrous Sulfate (Ferrous Sulfate) 325 mg PO BID@1200,1700 [facility] Last Admin: 01/07/19 17:21 Dose: 325 mg Documented by: Gabapentin (Neurontin) 300 mg PO DAILY [facility] Last Admin: 01/07/19 09:10 Dose: 300 mg Documented by: Glucagon () 1 mg IM .X1 PRN PRN Reason: Hypoglycemia Sodium Chloride () 250 mls @ 15 mls/hr IV .[id number] PRN PRN Reason: Saline Flush Magnesium Hydroxide (Milk Of Magnesia) 30 ml PO DAILY PRN PRN PRN Reason: Constipation Midodrine (Proamatine) 10 mg PO BID [facility] Last Admin: 01/07/19 09:09 Dose: 10 mg Documented by: Multivit/Ca Carb/B Cmplx/FA/Prenat (Nephrocaps, Renaphro) 1 capsule PO DAILY@1200 [facility] Last Admin: 01/07/19 14:25 Dose: 1 capsule Documented by: Ondansetron HCl (Zofran Odt) 4 mg PO Q6H PRN PRN PRN Reason: NAUSEA Ondansetron HCl (Zofran) 4 mg IV Q8H PRN PRN PRN Reason: NAUSEA/VOMITING Pantoprazole Sodium (Protonix) 40 mg PO DAILY [facility] Last Admin: 01/07/19 09:10 Dose: 40 mg Documented by: Pramipexole Dihydrochloride (Mirapex) 0.5 mg PO QHS [facility] Last Admin: 01/06/19 21:59 Dose: 0.5 mg Documented by: Senna (Senokot) 1 tablet PO BID [facility] Last Admin: 01/07/19 09:10 Dose: 1 tablet Documented by: Sodium Chloride () 10 - 40 ml IV UD PRN PRN Reason: SALINE FLUSH Warfarin Sodium (Coumadin (Pbkc)) 2 mg PO DAILY@1700 [facility] Last Admin: 01/07/19 17:22 Dose: 2 mg Documented by: - Past Medical History Past Medical History (Chronic Problems): Chronic Problems (Last Updated 01/07/19 @ 07:23 by Estuardo Richardson MD) ESRD (end stage renal disease) on dialysis (Chronic) Benign hypertension (Chronic) BPH (benign prostatic hyperplasia) (Chronic) Depression (Chronic) Hyperlipidemia (Chronic) IgA nephropathy (Chronic) Chronic gout (Chronic) Diabetes mellitus, type 2 (Chronic) DIET CONTROLLED Diastolic Dysfunction EF 60% (Chronic) KATHY on CPAP (Chronic) 16 CM WATER COPD (chronic obstructive pulmonary disease) (Chronic) With chronic respiratory failure On 3 L nasal cannula Left kidney mass (Chronic) Super obesity (Chronic) bmi 64 Chronic low back pain (Chronic) Pulmonary hypertension (Chronic) Paroxysmal atrial fibrillation (Chronic) Anemia of chronic renal failure (Chronic) Falls frequently (Chronic) - Past Surgical History Surgical History: colectomy, total knee arthroplasty, - - Social History Smoking Status: Never smoker - Family History Maternal History Items: COPD, Diabetes, Heart Disease, Hypertension - He, Pulmonary Disease, Renal Disease Paternal History Items: No pertinent history Review of Systems Constitutional: Denies: Chills, Fever, Weight Change HEENT: Denies: Head Aches, Sinus Congestion, Sinus Drainage Cardiovascular: Denies: Chest Pain, Palpitations Respiratory: Denies: Cough, Shortness of breath at rest, Sputum production Gastrointestinal: Denies: Abdominal Pain, Nausea, Vomiting Genitourinary: Denies: Dysuria Musculoskeletal: Denies: Joint Pain, Joint Tenderness Skin: Denies: Rash, Wounds Neurological: Denies: Numbness, Tingling, Focal weakness Psychiatric: Denies: Anxiety, Depression, Homicidal Ideations, Suicidal Ideations Hematologic/ Lymphatic: Denies: Easy Bruising, Easy Bleeding Patient Problems: Active and Suspected Problems (Last Updated 01/07/19 @ 07:23 by Estuardo Richardson MD) Hypotension (Acute) - Physical Exam Vitals/I&O's: Vital Signs Temp Pulse Resp BP Pulse Ox 97.2 F L 70 18 97/50 L 97 01/07/19 15:20 01/07/19 15:20 01/07/19 15:20 01/07/19 15:20 01/07/19 15:20 Oxygen Flow Rate (L/min) 2 Oxygen Delivery Method Nasal Cannula Weight: 141.1 kg Body Mass Index (BMI) 50.2 Finger Stick Blood Glucose 97 Orthostatic Vital Signs Start: 01/07/19 09:28 Freq: q24h Status: Active Protocol: Activity Type Activity Date Activity User E-Sign Co-Sign Detail Recorded Client Recorded Date Recorded By Document 01/07/19 09:28 [facility] [id number] 01/07/19 09:39 KLT 01/07/19 09:28 Orthostatic Vitals Sitting -Blood Pressure (90/60-120/80) 107/71 -Extremity Use Right Arm -Pulse Rate (60-100) 77 Lying -Blood Pressure (90/60-120/80) 66/32 L -Extremity Use Right Arm -Pulse Rate (60-100) 70 01/07/19 09:38 Nursing Note by Rafa Carrasquillo unable to do full set of orthostatic vs. Dr. Richardson made aware. Patient was barely able to sit up on EOB d/t weakness. Initialized on 01/07/19 09:38 - END OF NOTE Intake and Output for Last 24 Hours 01/05/19 01/06/19 01/07/19 23:59 23:59 23:59 Intake Total 1000 / 1640 1040 / 1040 Output Total 0 / 0 Balance 1000 / 1640 1040 / 1040 General: Alert, Oriented x3, Cooperative HEENT: Atraumatic, PERRLA, EOMI, Normocephalic Neck: Supple, No JVD, Negative Carotid Bruits Lungs: Clear to auscultation, Normal air movement Cardiovascular: Regular rate, No murmurs Abdomen: Bowel Sounds Present, Soft, Non Tender Extremities: No edema, Capillary Refill Less than 3 Seconds Skin: No rashes, No breakdown Musculoskeletal: No Tenderness to Palpation of Joints or Extremities Neurological: Cranial nerves II-XII grossly intact Psych/Mental Status: Normal Affect, Appropriate Laboratory Results 01/06/19 16:45: Differential Comment , Platelet Estimate MOD DEC, RBC Morphology N CHROM, Anisocytosis 1+ 01/07/19 05:18: Sodium 136, Potassium 3.9, Chloride 99, Carbon Dioxide 27.0, Anion Gap 10, BUN 44 H, Creatinine 4.57 H, Estim Creat Clear Calc 13.96, Est GFR (MDRD) Af Amer 17 L, Est GFR (MDRD) Non-Af 14 L, BUN/Creatinine Ratio 9.6 L, Glucose 110 H, Calcium 8.4 L 01/07/19 05:18: PT 30.0 H, INR 2.8 Current Medications Acetaminophen (Tylenol) 650 mg PO Q6H PRN PRN PRN Reason: Pain Score 1-3/Temp > 100.7 F Last Admin: 01/07/19 06:33 Dose: 650 mg Documented by: Albuterol/Ipratropium (Duoneb) 3 ml INHALATION Q6HWA.RT [facility] Last Admin: 01/07/19 13:17 Dose: 3 ml Documented by: Budesonide (Pulmicort Aerosol) 0.5 mg INHALATION Q12H.RT [facility] Last Admin: 01/07/19 07:11 Dose: 0.5 mg Documented by: Calcium Acetate (Phoslo Gel Cap) 1,334 mg PO BIDCM [facility] Last Admin: 01/07/19 17:21 Dose: 1,334 mg Documented by: Cholestyramine Resin (Questran 4gm Packet) 4 gm PO BID [facility] Last Admin: 01/07/19 09:09 Dose: 4 gm Documented by: Dextrose (D50w Syringe) 0 gm IV X1 PRN; Protocol PRN Reason: Hypoglycemia Docusate Sodium (Colace) 200 mg PO BID [facility] Last Admin: 01/07/19 09:09 Dose: 200 mg Documented by: Escitalopram Oxalate (Lexapro) 10 mg PO DAILY [facility] Last Admin: 01/07/19 09:10 Dose: 10 mg Documented by: Ferrous Sulfate (Ferrous Sulfate) 325 mg PO BID@1200,1700 [facility] Last Admin: 01/07/19 17:21 Dose: 325 mg Documented by: Gabapentin (Neurontin) 300 mg PO DAILY [facility] Last Admin: 01/07/19 09:10 Dose: 300 mg Documented by: Glucagon () 1 mg IM .X1 PRN PRN Reason: Hypoglycemia Sodium Chloride () 250 mls @ 15 mls/hr IV .[id number] PRN PRN Reason: Saline Flush Magnesium Hydroxide (Milk Of Magnesia) 30 ml PO DAILY PRN PRN PRN Reason: Constipation Midodrine (Proamatine) 10 mg PO BID [facility] Last Admin: 01/07/19 09:09 Dose: 10 mg Documented by: Multivit/Ca Carb/B Cmplx/FA/Prenat (Nephrocaps, Renaphro) 1 capsule PO DAILY@1200 [facility] Last Admin: 01/07/19 14:25 Dose: 1 capsule Documented by: Ondansetron HCl (Zofran Odt) 4 mg PO Q6H PRN PRN PRN Reason: NAUSEA Ondansetron HCl (Zofran) 4 mg IV Q8H PRN PRN PRN Reason: NAUSEA/VOMITING Pantoprazole Sodium (Protonix) 40 mg PO DAILY [facility] Last Admin: 01/07/19 09:10 Dose: 40 mg Documented by: Pramipexole Dihydrochloride (Mirapex) 0.5 mg PO QHS [facility] Last Admin: 01/06/19 21:59 Dose: 0.5 mg Documented by: Senna (Senokot) 1 tablet PO BID [facility] Last Admin: 01/07/19 09:10 Dose: 1 tablet Documented by: Sodium Chloride () 10 - 40 ml IV UD PRN PRN Reason: SALINE FLUSH Warfarin Sodium (Coumadin (Pbkc)) 2 mg PO DAILY@1700 [facility] Last Admin: 01/07/19 17:22 Dose: 2 mg Documented by: Assessment/Plan All Active Problems (Last Updated 01/07/19 @ 07:23 by Estuardo Richardson MD) Hypotension (Acute) ESRD. HD tomorrow hypotension. Usually runs low blood pressure. Has been close to dry weight recently. Will increase dry weight tomorrow. Usually takes Midrin with dialysis.
[2019-01-07] MEDS: Pramipexole Di-HCl 0.5 MG Tablet PO (21:30)
[2019-01-08] VITALS (10 sets, daily range): BP systolic 92–133; BP diastolic 43–79; PULSE 66–82; RESP 14–18; TEMP 36.3–36.6; O2SAT 94–100
[2019-01-08] MEDS: Acetaminophen 325 MG Tablet 650 MG PO (02:01)
--- NOTE | 2019-01-08 10:32 | PCM.DC ---
- Discharge Diagnoses Current Active Problems: Current Active and Chronic Problems (Last Updated 01/07/19 @ 07:23 by Estuardo Richardson MD) Hypotension (Acute) You will use the following diet at home:: Cardiac, Renal (restricted protein/sodium) Your food should be the consistency of: Regular Discharge Activity: Return to Normal Activity Weight Bearing Status: Weight bearing as tolerated Call your doctor if you observe: Fever of 101 or Higher, Shortness of breath, Dizziness, Fainting spells, Chest pain, Increased palpitations (irregular heartbeat), Uncontrolled pain Allergies/Adverse Reactions: Allergies mirtazapine [From Remeron] Allergy (Verified 01/06/19 15:50) forgetful, doesn't remember anything Sulfa (Sulfonamide Antibiotics) Allergy (Verified 01/06/19 15:50) bleeding from kidneys aspirin Adverse Reaction (Verified 01/06/19 15:50) Nausea oxycodone HCl [From Percodan] Adverse Reaction (Verified 01/06/19 15:50) Nausea oxycodone terephthalate [From Percodan] Adverse Reaction (Verified 01/06/19 15:50) Nausea Medications to take at Discharge Calcium Acetate [Phoslo Gel Cap] 1,334 mg PO BID 11/08/16 ferrous sulfate 325 mg (65 mg iron) tablet,delayed release 325 mg PO BID tab 05/12/18 umeclidinium 62.5 mcg/actuation blister powder for inhalation 1 inh INHALATION LUNCH 05/12/18 B Complex W-C No.20/Folic Acid [Virt-Caps Softgel] 1 mg PO DAILY@1200 08/18/18 Docusate Sodium [Colace] 200 mg PO BID 08/18/18 Escitalopram Oxalate [Lexapro] 10 mg PO DAILY 08/18/18 Fluticasone/Vilanterol [Breo Ellipta 100-25 Mcg INH] 1 ea IH DAILY 08/18/18 Gabapentin [Neurontin] 300 mg PO DAILY 08/18/18 Magnesium Hydroxide [Milk Of Magnesia] 30 ml PO DAILY PRN PRN 08/18/18 Ondansetron HCl [Zofran] 4 mg PO Q6H PRN PRN 08/18/18 Pantoprazole Sodium [Protonix] 40 mg PO DAILY 08/18/18 Cholestyramine (with Sugar) [Questran Packet] 4 gm PO BID 01/05/19 Pramipexole Di-HCl [Mirapex] 0.5 mg PO QHS 01/05/19 Warfarin Sodium [Coumadin] 2 mg PO QHS 01/05/19 Bacitracin Ointment 1 applic TOPICAL BID #1 tube 01/08/19 Midodrine HCl 10 mg PO BID #90 tab 01/08/19 The following prescriptions were given: Bacitracin Ointment 1 applic TOPICAL BID #1 tube Transmission Status: Pending to [id number] Midodrine HCl 10 mg PO BID #90 tab Transmission Status: Pending to [id number] Primary Care Physician: Heraclio Whitehead MD [Primary Care Provider] - Please follow up with your Primary Care Physician in: 1 week. Test Results: Test results from this visit will be discussed in further detail at your follow-up appointment, if applicable. Please Follow Up With: Nancy Benitez MD When: 2 weeks.
--- NOTE | 2019-01-08 10:34 | PCM.TXEXTCAR ---
- Diet 01/06/19 20:45 Diet: Calorie Controlled, renal diet. Food consistency:: Regular Liquid Consistency:: Regular/Thin Is pt able to select menu?: Yes How many daily calories?: 1800 calorie - Routine Orders/Code Status O2 Liters per Minute: 2 O2 Frequency: Continuous Code Status: DNRCC-A - Wound(s) Right heel Wound Type: Pressure Injury Bilateral shins Wound Type: Abrasion left knee Wound Type: boil - Suggestions for Active Care Change Position every (hours): 3 Hours to sit in a chair: 2 Times a day to sit in chair: 3 - Therapies Weight Bearing: Weight bearing as tolerated Physical Therapy: Eval and Treat Occupational Therapy: Eval and Treat - Allergies/Procedures Done in Hospital Allergies/Adverse Reactions: Allergies mirtazapine [From Remeron] Allergy (Verified 01/06/19 15:50) forgetful, doesn't remember anything Sulfa (Sulfonamide Antibiotics) Allergy (Verified 01/06/19 15:50) bleeding from kidneys aspirin Adverse Reaction (Verified 01/06/19 15:50) Nausea oxycodone HCl [From Percodan] Adverse Reaction (Verified 01/06/19 15:50) Nausea oxycodone terephthalate [From Percodan] Adverse Reaction (Verified 01/06/19 15:50) Nausea - Type of Care/Length of Stay Estimated LOS: More Than 30 Days Type of Care Needed: Skilled Rehab Potential: Fair Prognosis: Fair - Additional Orders/Day of Discharge H&P will serve as current which was dated: 02/06/19 Day of Discharge: 01/08/19 - Dietary and Speech Recommendations Dietitian Recommendations/Changes: Recommend 2200 calorie controlled, cardiac, low sodium diet w/ fluid restriction as indicated. - Follow Up Care Primary Care Physician: Heraclio Whitehead MD [Primary Care Provider] - Please follow up with your Primary Care Physician in: 1 week. Please Follow Up With: Nancy Benitez MD When: 2 weeks.
--- NOTE | 2019-01-08 10:43 | CASEMGMT ---
Social Work Note Pt is being discharged back to [facility] intermediate project manager today after pt has dialysis. SW spoke with RN and asked to update this worker with time frame of when dialysis will be done so this worker can arranged transportation. SW placed a call to Holly at [facility] and left her a message informing her that pt will be discharged after dialysis today and this worker will let her know when transportation is arranged. SW to continue to follow. Plan: [facility] today after dialysis Chelsea Brown AIR CONDITIONING MECHANIC, DIRECTOR TELEMETRY
[2019-01-08] MEDS: Calcium Acetate 667 MG Capsule 1334 MG PO (11:22)
[2019-01-08] MEDS: Midodrine HCl 5 MG Tablet 10 MG PO (11:23)
[2019-01-08] MEDS: Docusate Sodium 100 MG Capsule 200 MG PO (11:23)
[2019-01-08] MEDS: Cholestyramine/Sucrose 4 GM/PACKET PO (11:23)
[2019-01-08] MEDS: Ferrous Sulfate 325 MG Tablet PO (11:25)
--- NOTE | 2019-01-08 11:33 | CASEMGMT ---
Social Work Note CLARA spoke with RN who states dialysis will begin with pt around 2:00pm and requests transportation be arranged around 7:00/7:30pm. CLARA spoke with RN who confirms pt is able to transport via cot. CLARA placed a call to [facility] and arranged transportation via bariatric cot for 7:30pm. Transportation form completed and placed on SNF folder and copy on pt's chart. CLARA faxed completed discharge paperwork to [facility] including transfer to extended care facility, signed medication list and any scripts. Original in SNF folder and copy on pt's chart. Pt is from [facility] intermodal dispatcher and will be returning intermodal dispatcher skilled. CLARA placed a call to Holly at [facility] and updated her on transportation time. CLARA updated RN on transportation time. CLARA updated pt on discharge and transportation time. Pt asked this worker to call his daughter Yanni and update her on discharge today. CLARA placed a call to pt's daughter Yanni and left a message updating her that pt will be discharged today and transportation time. Plan: Pt to return to [facility] today intermodal dispatcher with [facility] transporting via bariatric cot at 7:30pm Chelsea Brown MSW, CLIENT EXPERIENCE CONSULTANT
[2019-01-08] MEDS: Ondansetron ODT 4 MG Tablet PO (11:57)
--- NOTE | 2019-01-08 12:00 | DS.PCM_ITS ---
Discharge Date and Diagnosis Date of Admission: 01/06/19 Date of Discharge: 01/08/19 - Primary Discharge Diagnosis Active and Suspected Problems (Last Updated 01/07/19 @ 07:23 by Estuardo Richardson MD) #1 hypotension, attributed to probable overdiuresis in context of chronic hypote nsion. #2 transient encephalopathy, resolved. #3 ESRD on hemodialysis. - Secondary Discharge Diagnosis Chronic Problems (Last Updated 01/07/19 @ 07:23 by Estuardo Richardson MD) ESRD (end stage renal disease) on dialysis (Chronic) Benign hypertension (Chronic) BPH (benign prostatic hyperplasia) (Chronic) Depression (Chronic) Hyperlipidemia (Chronic) IgA nephropathy (Chronic) Chronic gout (Chronic) Diabetes mellitus, type 2 (Chronic) DIET CONTROLLED Diastolic Dysfunction EF 60% (Chronic) KATHY on CPAP (Chronic) 16 CM WATER COPD (chronic obstructive pulmonary disease) (Chronic) With chronic respiratory failure On 3 L nasal cannula Left kidney mass (Chronic) Super obesity (Chronic) bmi 64 Chronic low back pain (Chronic) Pulmonary hypertension (Chronic) Paroxysmal atrial fibrillation (Chronic) Anemia of chronic renal failure (Chronic) Falls frequently (Chronic) Hospital Course and Treatment Imaging Results: Clinical Impression(s) from Imaging Studies Brain CT 01/06/19 16:08 IMPRESSION: No acute intracranial or calvarial abnormality or major interval change. Electronically Signed: Hebert Farrell DO at 17:03 EDT Tel [phone], Service support , Chest X-Ray 01/06/19 16:08 IMPRESSION: 1. Cardiomegaly without evidence of pulmonary edema. 2. Right basilar atelectasis. 3. Stable hemodialysis catheter. Electronically Signed: Hebert Farrell DO at 16:37 EDT Tel [phone], Service support , Dr. Benitez, nephrology. Operations: None Procedures: Dialysis Summary of Care Provided: Patient seen and examined on day of discharge and appeared to be stable to be discharged to the alf facility. He denies any symptoms. He has been stable, no dizziness or lightheadedness. Blood pressure remained around 90 systolic which is his baseline. Other vital signs are stable. The patient is a 68 year old M patient was sent to the ED from the senior care because of profound hypotension and transient encephalopathy reportedly at the senior care, patient's blood pressure was 60/20. Patient has a history of ESRD on hemodialysis and currently, he has hypertension and his blood pressure has been running always around 80s to 90s systolic. His EKG showed no acute ischemic changes. Troponin was negative. Routine blood work was at his baseline without any changes. CT scan brain showed no acute findings. Chest x- ray showed no acute findings as well. Patient was monitored and his blood pressure improved. Lowest blood pressure while in the hospital was 70/48 but patient remained asymptomatic. Patient has been on midodrine which was increased to 10 mg p.o. twice daily. Nephrology consulted and patient underwent hemodialysis with increased dry weight. His blood pressure improved and patient remained asymptomatic throughout the hospital stay even with low blood pressure. Patient discharged back to senior care in a stable medical condition, dose of midodrine increased to 10 mg p.o. twice daily, continued on his previous home medications without any changes, plan to follow-up with nephrology in 2 weeks, recommended follow-up with PCP in 1 week. - Physical Exam Vitals/I&O's: Vital Signs Temp Pulse Resp BP Pulse Ox 97.3 F L 70 14 92/48 L 100 01/08/19 10:52 01/08/19 11:50 01/08/19 10:52 01/08/19 10:52 01/08/19 10:52 Oxygen Flow Rate (L/min) 2 Oxygen Delivery Method Room Air Weight: 311 lb 1.156 oz Body Mass Index (BMI) 50.2 Finger Stick Blood Glucose 97 Orthostatic Vital Signs Start: 01/07/19 09:28 Freq: q24h Status: Active Protocol: Activity Type Activity Date Activity User E-Sign Co-Sign Detail Recorded Client Recorded Date Recorded By Document 01/07/19 09:28 T [id number] 01/07/19 09:39 KLT 01/07/19 09:28 Orthostatic Vitals Sitting -Blood Pressure (90/60-120/80) 107/71 -Extremity Use Right Arm -Pulse Rate (60-100) 77 Lying -Blood Pressure (90/60-120/80) 66/32 L -Extremity Use Right Arm -Pulse Rate (60-100) 70 01/07/19 09:38 Nursing Note by Rafa Carrasquillo unable to do full set of orthostatic vs. Dr. Richardson made aware. Patient was barely able to sit up on EOB d/t weakness. Initialized on 01/07/19 09:38 - END OF NOTE Intake and Output for Last 24 Hours 01/06/19 01/07/19 01/08/19 23:59 23:59 23:59 Intake Total 1000 / 1640 1040 / 1040 450 / 450 Output Total 0 / 0 Balance 1000 / 1640 1040 / 1040 450 / 450 General: Alert, Oriented x3, Cooperative, No apparent distress HEENT: Atraumatic, PERRLA, EOMI, Normocephalic Oral: Moist Mucosa, No Gingival or Mucosal Lesions/ Ulcerations Neck: Supple, No JVD, Negative Carotid Bruits, Trachea Midline, Thyroid Normal Size and Texture Lungs: Clear to auscultation, Normal air movement, No rhonchi, No wheeze, No rales, Diminished Cardiovascular: Regular rate, Regular Rhythm, Normal S1, Normal S2, No murmurs Abdomen: Bowel Sounds Present, Soft, Non Tender, Non-Distended, No Hepato- splenomegaly, Obese Extremities: No clubbing, No cyanosis, Edema - Trace edema, venous insufficiency. Skin: No rashes, No breakdown Lymphatic: No Cervical, Supraclavicular, or Inguinal Adenopathy Neurological: Cranial nerves II-XII grossly intact, Neuro grossly intact Psych/Mental Status: Normal Affect, Appropriate Current Medications Acetaminophen (Tylenol) 650 mg PO Q6H PRN PRN PRN Reason: Pain Score 1-3/Temp > 100.7 F Last Admin: 01/08/19 02:01 Dose: 650 mg Documented by: Albuterol/Ipratropium (Duoneb) 3 ml INHALATION Q6HWA.RT [facility] Last Admin: 01/08/19 07:20 Dose: Not Given Documented by: Bacitracin (Bacitracin Ointment) 1 applic TOPICAL BID [facility]; Protocol Budesonide (Pulmicort Aerosol) 0.5 mg INHALATION Q12H.RT [facility] Last Admin: 01/08/19 07:21 Dose: Not Given Documented by: Calcium Acetate (Phoslo Gel Cap) 1,334 mg PO BIDCM [facility] Last Admin: 01/08/19 11:22 Dose: 1,334 mg Documented by: Cholestyramine Resin (Questran 4gm Packet) 4 gm PO BID [facility] Last Admin: 01/08/19 11:23 Dose: 4 gm Documented by: Dextrose (D50w Syringe) 0 gm IV X1 PRN; Protocol PRN Reason: Hypoglycemia Docusate Sodium (Colace) 200 mg PO BID [facility] Last Admin: 01/08/19 11:23 Dose: 200 mg Documented by: Escitalopram Oxalate (Lexapro) 10 mg PO DAILY [facility] Last Admin: 01/07/19 09:10 Dose: 10 mg Documented by: Ferrous Sulfate (Ferrous Sulfate) 325 mg PO BID@1200,1700 [facility] Last Admin: 01/08/19 11:25 Dose: 325 mg Documented by: Gabapentin (Neurontin) 300 mg PO DAILY [facility] Last Admin: 01/07/19 09:10 Dose: 300 mg Documented by: Glucagon () 1 mg IM .X1 PRN PRN Reason: Hypoglycemia Sodium Chloride () 250 mls @ 15 mls/hr IV .[id number] PRN PRN Reason: Saline Flush Magnesium Hydroxide (Milk Of Magnesia) 30 ml PO DAILY PRN PRN PRN Reason: Constipation Midodrine (Proamatine) 10 mg PO BID [facility] Last Admin: 01/08/19 11:23 Dose: 10 mg Documented by: Multivit/Ca Carb/B Cmplx/FA/Prenat (Nephrocaps, Renaphro) 1 capsule PO DAILY@1200 [facility] Last Admin: 01/07/19 14:25 Dose: 1 capsule Documented by: Ondansetron HCl (Zofran Odt) 4 mg PO Q6H PRN PRN PRN Reason: NAUSEA Last Admin: 01/08/19 11:57 Dose: 4 mg Documented by: Ondansetron HCl (Zofran) 4 mg IV Q8H PRN PRN PRN Reason: NAUSEA/VOMITING Pantoprazole Sodium (Protonix) 40 mg PO DAILY [facility] Last Admin: 01/07/19 09:10 Dose: 40 mg Documented by: Pramipexole Dihydrochloride (Mirapex) 0.5 mg PO QHS [facility] Last Admin: 01/07/19 21:30 Dose: 0.5 mg Documented by: Senna (Senokot) 1 tablet PO BID [facility] Last Admin: 01/08/19 11:23 Dose: Not Given Documented by: Sodium Chloride () 10 - 40 ml IV UD PRN PRN Reason: SALINE FLUSH Warfarin Sodium (Coumadin (Pbkc)) 2 mg PO DAILY@1700 [facility] Last Admin: 01/07/19 17:22 Dose: 2 mg Documented by: Home Medications: Medications to take at Discharge Calcium Acetate [Phoslo Gel Cap] 1,334 mg PO BID 11/08/16 ferrous sulfate 325 mg (65 mg iron) tablet,delayed release 325 mg PO BID tab 05/12/18 umeclidinium 62.5 mcg/actuation blister powder for inhalation 1 inh INHALATION LUNCH 05/12/18 B Complex W-C No.20/Folic Acid [Virt-Caps Softgel] 1 mg PO DAILY@1200 08/18/18 Docusate Sodium [Colace] 200 mg PO BID 08/18/18 Escitalopram Oxalate [Lexapro] 10 mg PO DAILY 08/18/18 Fluticasone/Vilanterol [Breo Ellipta 100-25 Mcg INH] 1 ea IH DAILY 08/18/18 Gabapentin [Neurontin] 300 mg PO DAILY 08/18/18 Magnesium Hydroxide [Milk Of Magnesia] 30 ml PO DAILY PRN PRN 08/18/18 Ondansetron HCl [Zofran] 4 mg PO Q6H PRN PRN 08/18/18 Pantoprazole Sodium [Protonix] 40 mg PO DAILY 08/18/18 Cholestyramine (with Sugar) [Questran Packet] 4 gm PO BID 01/05/19 Pramipexole Di-HCl [Mirapex] 0.5 mg PO QHS 01/05/19 Warfarin Sodium [Coumadin] 2 mg PO QHS 01/05/19 Bacitracin Ointment 1 applic TOPICAL BID #1 tube 01/08/19 Midodrine HCl 10 mg PO BID #60 tab 01/08/19 Following Prescrptions Were Given to Patient: Bacitracin Ointment 1 applic TOPICAL BID #1 tube Prescription Printed Midodrine HCl 10 mg PO BID #60 tab Prescription Printed Primary Care Physician: Heraclio Whitehead MD [Primary Care Provider] - Please follow up with your Primary Care Physician in: 1 week. Please Follow Up With: Nancy Benitez MD When: 2 weeks. Disposition: Half-Way facility Minutes spent on discharge:: 26 Patient Condition:: Stable Medical Necessity - Tobacco Use Smoking Status: Never smoker Tobacco Use: Non-smoker Meaningful Use Info Meaningful Use Diagnoses (Choose all that apply): None applicable Code Visit OBSV E&M: 26927 Observation care discharge
[2019-01-08] MEDS: BACITRACIN 15 GM Tube 1 APPLIC TOPICAL (12:01)
--- NOTE | 2019-01-08 12:07 | CASEMGMT ---
SW spoke w/pt today about completing new LW/POA forms. Pt would prefer to complete the forms at [facility]. SW called [facility] and spoke w/Roslyn, let her know pt would like to do new LW/POA forms at [facility], she will let the SW know. SW gave the pt blank forms and explained did ask for the SW to see him, but that if she does not come to see him to be sure to ask for the SW at [facility]. Pt states understanding, no further needs. REYNA Kirk
--- NOTE | 2019-01-08 15:03 | PN.RENAL_ITS ---
Patient Problems: Active and Suspected Problems (Last Updated 01/07/19 @ 07:23 by Estuardo Richardson MD) Hypotension (Acute) Subjective: no new complaints - Physical Exam Vitals/I&O's: Vital Signs Temp Pulse Resp BP Pulse Ox 97.3 F L 66 14 117/59 L 100 01/08/19 10:52 01/08/19 13:45 01/08/19 10:52 01/08/19 13:45 01/08/19 10:52 Oxygen Flow Rate (L/min) 2 Oxygen Delivery Method Room Air Weight: 141.1 kg Body Mass Index (BMI) 50.2 Finger Stick Blood Glucose 97 Orthostatic Vital Signs Start: 01/07/19 09:28 Freq: q24h Status: Active Protocol: Activity Type Activity Date Activity User E-Sign Co-Sign Detail Recorded Client Recorded Date Recorded By Document 01/08/19 13:45 [facility] [place] [id number] 01/08/19 14:24 [facility] [place] 01/08/19 13:45 Orthostatic Vitals Standing -Blood Pressure (90/60-120/80 mm Hg) 133/79 H -Extremity Use Right Arm -Pulse Rate (60-100 beats/min) 74 Sitting -Blood Pressure (90/60-120/80 mm Hg) 109/68 -Extremity Use Right Arm -Pulse Rate (60-100 beats/min) 73 Lying -Blood Pressure (90/60-120/80 mm Hg) 117/59 L -Extremity Use Right Arm -Pulse Rate (60-100 beats/min) 66 Intake and Output for Last 24 Hours 01/06/19 01/07/19 01/08/19 23:59 23:59 23:59 Intake Total 1000 / 1640 1040 / 1040 450 / 450 Output Total 0 / 0 Balance 1000 / 1640 1040 / 1040 450 / 450 General: Alert, Oriented x3, Cooperative HEENT: Atraumatic, PERRLA, EOMI, Normocephalic Neck: Supple, No JVD, Negative Carotid Bruits Lungs: Clear to auscultation, Normal air movement Cardiovascular: Regular rate, No murmurs Abdomen: Bowel Sounds Present, Soft, Non Tender Extremities: No edema, Capillary Refill Less than 3 Seconds Skin: No rashes, No breakdown Musculoskeletal: No Tenderness to Palpation of Joints or Extremities Neurological: Cranial nerves II-XII grossly intact Psych/Mental Status: Normal Affect, Appropriate Current Medications Acetaminophen (Tylenol) 650 mg PO Q6H PRN PRN PRN Reason: Pain Score 1-3/Temp > 100.7 F Last Admin: 01/08/19 02:01 Dose: 650 mg Documented by: Albuterol/Ipratropium (Duoneb) 3 ml INHALATION Q6HWA.RT [facility] Last Admin: 01/08/19 13:31 Dose: Not Given Documented by: Bacitracin (Bacitracin Ointment) 1 applic TOPICAL BID [facility]; Protocol Last Admin: 01/08/19 12:01 Dose: 1 applicatio Documented by: Budesonide (Pulmicort Aerosol) 0.5 mg INHALATION Q12H.RT [facility] Last Admin: 01/08/19 07:21 Dose: Not Given Documented by: [facility]cium [facility] ([facility]lo [facility]) [facility] Last Admin: 01/08/19 11:22 Dose: 1,334 mg Documented by: Cholestyramine Resin (Questran 4gm Packet) 4 gm PO BID [facility] Last Admin: 01/08/19 11:23 Dose: 4 gm Documented by: Dextrose (D50w Syringe) 0 gm IV X1 PRN; Protocol PRN Reason: Hypoglycemia Docusate Sodium (Colace) 200 mg PO BID [facility] Last Admin: 01/08/19 11:23 Dose: 200 mg Documented by: Escitalopram Oxalate (Lexapro) 10 mg PO DAILY [facility] Last Admin: 01/07/19 09:10 Dose: 10 mg Documented by: Ferrous Sulfate (Ferrous Sulfate) 325 mg PO BID@1200,1700 [facility] Last Admin: 01/08/19 11:25 Dose: 325 mg Documented by: Gabapentin (Neurontin) 300 mg PO DAILY [facility] Last Admin: 01/07/19 09:10 Dose: 300 mg Documented by: Glucagon () 1 mg IM .X1 PRN PRN Reason: Hypoglycemia Sodium Chloride () 250 mls @ 15 mls/hr IV .[id number] PRN PRN Reason: Saline Flush Magnesium Hydroxide (Milk Of Magnesia) 30 ml PO DAILY PRN PRN PRN Reason: Constipation Midodrine (Proamatine) 10 mg PO BID [facility] Last Admin: 01/08/19 11:23 Dose: 10 mg Documented by: Multivit/Ca Carb/B Cmplx/FA/Prenat (Nephrocaps, Renaphro) 1 capsule PO DAILY@1200 [facility] Last Admin: 01/07/19 14:25 Dose: 1 capsule Documented by: Ondansetron HCl (Zofran Odt) 4 mg PO Q6H PRN PRN PRN Reason: NAUSEA Last Admin: 01/08/19 11:57 Dose: 4 mg Documented by: Ondansetron HCl (Zofran) 4 mg IV Q8H PRN PRN PRN Reason: NAUSEA/VOMITING Pantoprazole Sodium (Protonix) 40 mg PO DAILY [facility] Last Admin: 01/07/19 09:10 Dose: 40 mg Documented by: Pramipexole Dihydrochloride (Mirapex) 0.5 mg PO QHS [facility] Last Admin: 01/07/19 21:30 Dose: 0.5 mg Documented by: Senna (Senokot) 1 tablet PO BID [facility] Last Admin: 01/08/19 11:23 Dose: Not Given Documented by: Sodium Chloride () 10 - 40 ml IV UD PRN PRN Reason: SALINE FLUSH Warfarin Sodium (Coumadin (Pbkc)) 2 mg PO DAILY@1700 [facility] Last Admin: 01/07/19 17:22 Dose: 2 mg Documented by: Medical Necessity - Tobacco Use Smoking Status: Never smoker Tobacco Use: Non-smoker Assessment/Plan All Active Problems (Last Updated 01/07/19 @ 07:23 by Estuardo Richardson MD) Hypotension (Acute) ESRD. HD today. see orders/flowsheets hypotension. Usually runs low blood pressure. Has been close to dry weight recently. bed scales not accurate today. will try fr 1-2 L today as tolerated
--- NOTE | 2019-01-08 18:08 | NURSING ---
report called to [facility] for discharge. spoke with IMAN Bob.
--- NOTE | 2019-01-08 18:09 | NURSING ---
reviewed vitals taken by Lory, assisted living nursing director. student charted pt as being on room air. pt has been on 2L NC entire shift.
--- NOTE | 2019-01-08 19:05 | DIALYSIS ---
Hemodialysis completed 4.25 hours on 3 K bath. Fluid removed was 2500, patient tolerated well. Dressing change done, skin appears red and irritated at tunnelled dialysis site. Looks like psoriasis, patient states it has been that way for a while now. Advised patient to show baseball glove shaper during his next out patient dialysis appointment, he said they are aware. Report given to Milly VALERIO
== END 2019-01-08 19:10 | disposition home or self-care (01) ==
LOC: ED 16:12 → MS3 19:49
PROVIDERS: Emergency Provider Emergency Medicine; Family Provider Internal Medicine; PCP Internal Medicine; Visit Provider Hospitalist
DX: I95.9 Hypotension, unspecified (principal); G93.41 Metabolic encephalopathy; I12.0 Hypertensive chronic kidney disease with stage 5 chronic kidney disease or end stage renal disease; N18.6 End stage renal disease; E78.5 Hyperlipidemia, unspecified; N40.0 Benign prostatic hyperplasia without lower urinary tract symptoms; E66.01 Morbid (severe) obesity due to excess calories; G47.33 Obstructive sleep apnea (adult) (pediatric); J44.9 Chronic obstructive pulmonary disease, unspecified; I48.0 Paroxysmal atrial fibrillation; I48.20 Chronic atrial fibrillation, unspecified; J96.10 Chronic respiratory failure, unspecified whether with hypoxia or hypercapnia; D63.1 Anemia in chronic kidney disease; I27.20 Pulmonary hypertension, unspecified; F32.9 Major depressive disorder, single episode, unspecified; Z99.81 Dependence on supplemental oxygen; Z99.2 Dependence on renal dialysis; Z79.899 Other long term (current) drug therapy; Z79.01 Long term (current) use of anticoagulants; Z68.43 Body mass index [BMI] 50.0-59.9, adult; Z71.3 Dietary counseling and surveillance
CPT/HCPCS: 36415; 36600; 70450; 71045; 80048; 82803; 83605; 84484; 85025; 85610; 87040; 93005; 94640; 96360; 96361; 97802; 99218; 99285; J7040; A4216; G0378

== ENCOUNTER 2019-01-19 08:54 | Day surgery (SDC) | payer MEDICARE, SELFPAY ==
--- NOTE | 2018-12-22 02:14 | HP_ITS ---
Intake Vital Signs 12/22/18 Height 5 ft 6 in 12/22/18 Weight: 300 lb 8 oz 12/22/18 Body Mass Index (BMI) 48.4 12/22/18 Blood Pressure 110/68 12/22/18 Blood Pressure Location Rt brachial 12/22/18 Blood Pressure Position Sitting 12/22/18 Respiratory Rate 20 H 12/22/18 Pulse Ox 94 12/22/18 Oxygen Delivery Method nasal canula 12/22/18 Oxygen Flow Rate (L/min) 3 Intake Visit Reasons: F/U Fistula 10/30 Chief Complaint: recheck fistula Cardiac Cath Lab Technologist Required: No Is patient in pain?: No Allergies mirtazapine [From Remeron] Allergy (Verified 12/08/18 13:05) forgetful, doesn't remember anything Sulfa (Sulfonamide Antibiotics) Allergy (Verified 12/08/18 13:05) bleeding from kidneys aspirin Adverse Reaction (Verified 12/08/18 13:05) Nausea oxycodone HCl [From Percodan] Adverse Reaction (Verified 12/08/18 13:05) Nausea oxycodone terephthalate [From Percodan] Adverse Reaction (Verified 12/08/18 13:05) Nausea PFSH Medical History ESRD (end stage renal disease) on dialysis (Chronic) C. difficile diarrhea (Chronic) Hemorrhage of arteriovenous fistula (Resolved) Benign hypertension (Chronic) BPH (benign prostatic hyperplasia) (Chronic) Depression (Chronic) Hyperlipidemia (Chronic) IgA nephropathy (Chronic) Chronic gout (Chronic) Diabetes mellitus, type 2 (Chronic) Diastolic Dysfunction EF 60% (Chronic) COPD (chronic obstructive pulmonary disease) (Chronic) Left kidney mass (Chronic) Chronic low back pain (Chronic) Pulmonary hypertension (Chronic) Paroxysmal atrial fibrillation (Chronic) Vertebral osteomyelitis, acute (Inactive) Rhabdomyolysis (Inactive) Osteomyelitis (Inactive) Anemia of chronic renal failure (Chronic) Atrial fibrillation (Acute) Surgical History History of arteriovenostomy for renal dialysis (Acute) History of cholecystectomy (Acute) History of colonoscopy (Acute) History of total bilateral knee replacement (Acute) Status post biopsy of kidney (Acute) HPI HPI HPI: CANDICE MCINTOSH, is a 68 M who presents to the office today for HPI HPI Surgical H&P: Yes HPI: CANDICE MCINTOSH, is a 68 M who presents to the office today for follow-up of newly created left upper extremity AV fistula. Patient is currently being dialyzed via chest catheter. Patient has a left upper extremity transposition cephalic vein to brachial artery AV fistula which was created on 10/30/2018. Patient has not utilized this fistula for dialysis yet. Patient had a left forearm AV fistula which he had ligated in August of this year at [facility] by Dr. Lawrence secondary to uncontrolled bleeding of a pseudoaneurysm. Patient has dialysis on M,W and F. Patient resides at [facility]. He is maintained on Coumadin due to A fib. Patient has not had intervention on the his current fistula. ROS General General: Yes fatigue; no weight change, appetite, colon cancer, breast cancer or weakness HEENT HEENT: No difficulty swallowing, eye injury, eye surgery, swollen glands or hoarseness Endo Endocrine: Yes diabetes mellitus; no thyroid disease, thyroid cancer, Hair loss, heat intolerance or cold intolerance Skin Skin: No rash or changing moles Musc Musculoskeletal: Yes back problems, arthritis and gout; no rheumatoid arthritis or joint pain Cardio Cardiovascular: Yes atrial fibrillation, high blood pressure and shortness of breat with exertion; no murmur, pacemaker, heart disease, heart attack, heart stent, palpitations or chest pain Psych Psychiatric: No depression, anxiety or hearing voices Resp Respiratory: Yes shortness of breath, No sleep apnea, No cough, Yes COPD, No asthma, No emphysema, No wheezing Gastro Gastrointestinal: No abdominal pain, No nausea or vomiting, Yes diarrhea, No constipation, No blood in stool, No acid reflux, No hemorrhoids, No ulcers, No gallbladder problem, No black,tarry stools Gavin Hematologic: Yes blood thinners, No blood disorders, No bleeding, Yes anemia, No blood clots Neuro Neurologic: No weakness Exam Const General: cooperative, comfortable, no acute distress Nutritional Appearance: obese morbidly obese Orientation: alert, awake, oriented x3 Other: He ambulates in a motorized scooter. He is able to stand and pivot. [facility] Head: normal to inspection Eyes General: appearance normal, both eyes and all related structures Neck Neck: normal visual inspection Neck mass: No Resp Effort & Inspection: normal respiratory effort Auscultation: clear to auscultation bilaterally Cardio Rate: regular rate Rhythm: regular rhythm Heart Sounds: no murmurs GI Inspection: obesity Palpation: soft Auscultation: normal bowel sounds Skin General: no rashes or lesions noted Neuro General: no focal motor deficits, CN's II-XI intact bilaterally Extrem General: normal to inspection Other: Left upper extremity AV fistula- good pulse, diminished bruit, good thrill. Fistula appears tortuous distally. Psych Appearance: grossly normal Affect: normal affect Assessment & Plan Problems 1. Problem with dialysis access, subsequent encounter T82.898D 2. ESRD (end stage renal disease) on dialysis N18.6; Z99.[address] Royal will plan to perform a left upper extremity fistulogram. Procedure details, risks and benefits have been explained. Patient has had the opportunity to ask and have questions answered. Patient verbally understands and agrees with the plan. Patient will hold his Coumadin 3 days prior to the procedure. Shanda to contact nursing facility to schedule fistulogram. Coding Level of Care Code Global Post Op Diagnoses Problem with dialysis access, subsequent encounter T82.898D ??Encounter type: subsequent encounter ESRD (end stage renal disease) on dialysis N18.6; Z99.2 12/22/18 1415 <Electronically signed by Irais mccormick PA-C> Date _ Irais Paulson PA-C I have re-examined the patient. There are no clinical changes since date of exam.
[2018-12-22 12:44] VITALS: BMI 48.4
[2019-01-06 20:32] VITALS: BMI 50.2
[2019-01-19 09:10] LABS: Hematocrit 47.1 % (40-54); Hemoglobin 13.6 g/dL (13.0-16.5); Mean Corp Hgb Conc 28.9 g/dL (32-36); Mean Corpuscular Hgb 27.9 pg (27.0-32.0); Mean Corpuscular Volume 96.7 fL (80-94); Mean Platelet Vol. 9.9 fl (6.2-12.0); Platelet Count 186 K/mm3 (150-450); RBC Distribution Width CV 16.6 % (11.6-14.6); RBC Distribution Width SD 56.5 fl (35.1-43.9); Red Blood Count 4.87 M/mm3 (4.6-6.2)
[2019-01-19 09:24] LABS: Anion Gap 8 (5-15); BUN 49 mg/dL (7-18); BUN/Creat Ratio 8.7 RATIO (10-20); Calcium,Total 9.4 mg/dL (8.5-10.1); Chloride 95 mmol/L (98-107); Creatinine, Serum 5.63 mg/dL (0.70-1.30); EST Glomerular Filtration Rate 11 mL/min (>60); Est Glom Filt Rate - Afr Amer 13 mL/min (>60); Glucose 125 mg/dL (74-106); Sodium Level 134 mmol/L (136-145)
[2019-01-19 09:51] VITALS: BMI 48.6
[2019-01-19 09:55] LABS: Prothrombin Time Fingerstick 24.4 SEC (11.9-14.4)
--- NOTE | 2019-01-19 11:29 | PCM.OPRPT ---
Problem List (1) Problem with dialysis access Status: Acute Qualifiers: Encounter type: initial encounter Qualified Code(s): T82.898A - Other specified complication of vascular prosthetic devices, implants and grafts, initial encounter Report of Operation Date of Procedure: 01/19/19 Pre-Operative Diagnosis: Problem with dialysis access, infiltration on attempt to access Post-Operative Diagnosis: Tortuous left upper extremity cephalic vein to brachial artery arteriovenous hemodialysis fistula Surgery/Procedure Performed:: Left upper extremity fistulogram Description of Surgical Findings:: Timeout and informed consent was obtained. 69-year-old gent was taken to the special procedure lab placed on the table. The left upper extremity was sterilely prepped draped. Ultrasound was used to identify the cephalic vein close to the brachial artery anastomosis. Under ultrasound guidance 2% lidocaine was instilled and then under ultrasound guidance a micropuncture needle was inserted micropuncture wire inserted 6 [place] short sheath guide was inserted. Using Isovue contrast fistulogram was obtained of the left upper extremity and chest outflow. He tolerated that well. The sheath was removed U suture of 4-0 nylon was placed hemostasis was intact sterile dressings applied no apparent complication blood loss minimal. The fistulogram demonstrates significant tortuosity of the left upper arm cephalic vein. There are 2 dominant tributary branches in the distal upper arm. There is 2 areas of distinct angulation of the fistula in the distal upper arm and in the mid upper arm there appears to be a coiling of the vein. There is no areas that would suggest clinically significant stenosis. Upon inspecting the image I did not feel that an endovascular approach would resolve the issue. I have proposed with the patient a transposition of the left upper arm fistula to undo the areas of coiling and kinking. We will schedule and proceed in the future. Aydin Royal M.D., F.A.C.S. Type of Anesthesia:: Local
== END 2019-01-19 12:30 | disposition home or self-care (01) ==
PROVIDERS: Family Provider Internal Medicine; PCP Internal Medicine; Referring Provider Surgery; Visit Provider Surgery
DX: T82.898A Other specified complication of vascular prosthetic devices, implants and grafts, initial encounter (principal); E11.22 Type 2 diabetes mellitus with diabetic chronic kidney disease; I12.0 Hypertensive chronic kidney disease with stage 5 chronic kidney disease or end stage renal disease; N18.6 End stage renal disease; Z99.2 Dependence on renal dialysis; N40.0 Benign prostatic hyperplasia without lower urinary tract symptoms; F32.9 Major depressive disorder, single episode, unspecified; E78.5 Hyperlipidemia, unspecified; J44.9 Chronic obstructive pulmonary disease, unspecified; I27.20 Pulmonary hypertension, unspecified; I48.0 Paroxysmal atrial fibrillation; D63.1 Anemia in chronic kidney disease; M1A.9XX0 Chronic gout, unspecified, without tophus (tophi); Z86.19 Personal history of other infectious and parasitic diseases; Z79.01 Long term (current) use of anticoagulants; Z79.899 Other long term (current) drug therapy
CPT/HCPCS: 36415; 36416; 36901; 76937; 80048; 85027; 85610; Q9967

== ENCOUNTER 2019-02-18 18:49 | Inpatient (IN) | payer MEDICARE, SELFPAY ==
[2019-02-18] VITALS (10 sets, daily range): BP systolic 57–96; BP diastolic 23–70; PULSE 101–123; RESP 19–24; TEMP 38.2–39.3; O2SAT 93–96; BMI 45.9
--- NOTE | 2019-02-18 19:25 | EKG12_ITS ---
Test Reason : FEVER Blood Pressure : / mmHG Vent. Rate : 102 BPM Atrial Rate : 102 BPM P-R Int : 186 ms QRS Dur : 138 ms QT Int : 378 ms P-R-T Axes : 050 -53 030 degrees QTc Int : 492 ms Sinus tachycardia with occasional Premature ventricular complexes Left axis deviation Right bundle branch block Possible Inferior infarct , age undetermined Possible Anteroseptal infarct (cited on or before 05-JAN-2019) Abnormal ECG Confirmed by LESLIE CORTES, ELLYN ([id number]), television news video editor SUHAIL CHAVES ([id number]) on 02/22/2019 11:47:07 AM Referred By: Confirmed By:ELLYN NELSON MD
[2019-02-18] MEDS: Acetaminophen 650 MG Suppository RECTAL (19:30)
[2019-02-18] MEDS: 0.9% Normal Saline 1,000 ML 999 ML IV ×2 (19:30→20:31)
--- NOTE | 2019-02-18 19:45 | RAD_ITS ---
STUDY: X-RAY CHEST REASON FOR EXAM: Male, 69 years old. Fever TECHNIQUE: Frontal view COMPARISON: January 06, 2019 FINDINGS: Stable right-sided dual-lumen venous catheter. The lungs are not fully expanded. There is no demonstrated pleural abnormality. Cardiomegaly. Normal mediastinum and tyron. Prominence of the pulmonary arteries. Normal visualized aortic arch and descending thoracic aorta. Normal visualized thoracic spine. Normal visualized ribs, clavicles, and shoulders. There is no demonstrated abnormality of the visualized soft tissue structures of the upper abdomen. RAD/Chest 1 View (Portable) IMPRESSION: Cardiomegaly with pulmonary vascular prominence. Electronically Signed: Guanako Flores DO at 20:04 EST Tel [phone], Service support ,
[2019-02-18 19:54] LABS: Absolute Lymphocyte Count 0.15 X10^3/uL (0.83-4.51); Absolute Neutrophil Count 21.4 X10^3/uL (2.0-7.7); Basophil# 0.03 X10^3/uL; Basophil% 0.1 % (0-1); Differential Indicated SCAN CRITERIA MET; Eosinophil# 0.01 X10^3/uL; Hematocrit 42.2 % (40-54); Lymphocyte # 0.15 X10^3/ul (4.0); Lymphocyte % 0.7 % (19-41); Mean Corp Hgb Conc 30.8 g/dL (32-36); Mean Corpuscular Hgb 29.5 pg (27.0-32.0); Mean Corpuscular Volume 95.7 fL (80-94); Mean Platelet Vol. 11.4 fl (6.2-12.0); Monocyte# 0.68 X10^3/uL; NRBC Flagged by Analyzer 0 % (0-5); Neutrophil # 21.42 X10^3/uL (2.7-7.7); Neutrophil % 95.3 % (47-70); POSITIVE DIFFERENTIAL YES; Platelet Count 131 K/mm3 (150-450); RBC Distribution Width CV 17.2 % (11.6-14.6); RBC Distribution Width SD 60.4 fl (35.1-43.9); Red Blood Count 4.41 M/mm3 (4.6-6.2); White Blood Count 22.5 K/mm3 (4.4-11.0)
[2019-02-18 20:01] LABS: Prothrombin Time (Protime)PT. 35.6 SECONDS (11.7-14.9)
[2019-02-18 20:02] LABS: Partial Thromboplast Time 61.8 Seconds (24.1-36.2)
[2019-02-18 20:04] LABS: International Normalized Ratio 3.5
[2019-02-18 20:05] LABS: ALB/GLOB Ratio 0.7 RATIO (0.9-2.4); AST(SGOT) 20 U/L (15-37); Alanine Aminotransfer ALT/SGPT 18 U/L (16-61); Albumin, Serum 2.9 g/dL (3.2-5.0); Alkaline Phosphatase 138 U/L (45-117); Anion Gap 9 (5-15); BUN 60 mg/dL (7-18); BUN/Creat Ratio 10.8 RATIO (10-20); Calcium,Total 9.3 mg/dL (8.5-10.1); Chloride 98 mmol/L (98-107); Creatinine, Serum 5.53 mg/dL (0.70-1.30); EST Glomerular Filtration Rate 11 mL/min (>60); Est Glom Filt Rate - Afr Amer 13 mL/min (>60); Estimated Creatinine Clearance 13.02 ml/min; Globulin 4.1 g/dL (2.2-4.2); Glucose 161 mg/dL (74-106); Potassium 4.4 mmol/L (3.5-5.1); Sodium Level 135 mmol/L (136-145)
[2019-02-18 20:17] LABS: Differential Comment SCANNED
[2019-02-18 20:21] LABS: Lactic Acid 3.2 mmol/L (0.4-1.9)
--- NOTE | 2019-02-18 21:52 | ED.RN ---
long term updated on patients admission at this time
--- NOTE | 2019-02-18 21:55 | PCM.HP.STD ---
Problem List (1) Septic shock Status: Acute (2) ESRD (end stage renal disease) on dialysis Status: Chronic (3) BPH (benign prostatic hyperplasia) Status: Chronic Qualifiers: Lower urinary tract symptom presence: symptoms present Lower urinary tract symptom detail: urinary hesitancy Qualified Code(s): N40.1 - Benign prostatic hyperplasia with lower urinary tract symptoms; R39.11 - Hesitancy of micturition (4) Depression Status: Chronic (5) Hyperlipidemia Status: Chronic Qualifiers: Hyperlipidemia type: pure hypercholesterolemia Qualified Code(s): E78.00 - Pure hypercholesterolemia, unspecified; E78.0 - Pure hypercholesterolemia (6) IgA nephropathy Status: Chronic (7) Chronic gout Status: Chronic (8) Diabetes mellitus, type 2 Status: Chronic Qualifiers: Diabetes mellitus rn long term care insulin use: with rn long term care use Diabetes mellitus complication status: with kidney complications Diabetes mellitus complication detail: with chronic kidney disease Chronic kidney disease stage: on chronic dialysis Qualified Code(s): E11.22 - Type 2 diabetes mellitus with diabetic chronic kidney disease; N18.6 - End stage renal disease; Z79.4 - rn long term care (current) use of insulin; Z99.2 - Dependence on renal dialysis Comment: DIET CONTROLLED (9) Diastolic Dysfunction EF 60% Status: Chronic (10) KATHY on CPAP Status: Chronic 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 (11) COPD (chronic obstructive pulmonary disease) Status: Chronic Qualifiers: COPD type: unspecified COPD Qualified Code(s): J44.9 - Chronic obstructive pulmonary disease, unspecified Comment: With chronic respiratory failure On 3 L nasal cannula (12) Left kidney mass Status: Chronic (13) Super obesity Status: Chronic Comment: bmi 64 (14) Chronic low back pain Status: Chronic (15) Pulmonary hypertension Status: Chronic (16) Paroxysmal atrial fibrillation Status: Chronic (17) Anemia of chronic renal failure Status: Chronic Qualifiers: Chronic kidney disease stage: stage 5 Qualified Code(s): N18.5 - Chronic kidney disease, stage 5; D63.1 - Anemia in chronic kidney disease; D63.1 - Anemia in chronic kidney disease (18) Falls frequently Status: Chronic History of Present Illness Date of Admission: 02/18/19 Chief Complaint: Fever The patient is a 69 year old M who lives at a prison and with with a significant history of anemia of chronic renal failure; IgA nephropathy; left kidney mass; depression; diet-controlled diabetes; end-stage renal disease on dialysis COPD; and atrial fibrillation who presented to the emergency department with fever of 103 F. Reportedly he was also found to be choking on applesauce. Also patient has been less interactive in the prison where he is; answering questions with only yes or no. At the emergency department patient was found to be severely hypotensive with an initial blood pressure of 57/34. His maximum temperature at the emergency department was 102.8 Fahrenheit. Further at the ED his heart rate was in the 100s; and he had respiratory rate more than 20. Also patient was found to have neutrophilic leukocytosis. Further his INR was elevated at 3.5. Past Medical History Past Medical History (Chronic Problems): Chronic Problems (Last Reviewed 02/19/19 @ 00:06 by Stew Aldrich MD) ESRD (end stage renal disease) on dialysis (Chronic) BPH (benign prostatic hyperplasia) (Chronic) Depression (Chronic) Hyperlipidemia (Chronic) IgA nephropathy (Chronic) Chronic gout (Chronic) Diabetes mellitus, type 2 (Chronic) DIET CONTROLLED Diastolic Dysfunction EF 60% (Chronic) KATHY on CPAP (Chronic) 16 CM WATER COPD (chronic obstructive pulmonary disease) (Chronic) With chronic respiratory failure On 3 L nasal cannula Left kidney mass (Chronic) Super obesity (Chronic) bmi 64 Chronic low back pain (Chronic) Pulmonary hypertension (Chronic) Paroxysmal atrial fibrillation (Chronic) Anemia of chronic renal failure (Chronic) Falls frequently (Chronic) Medical History: Medical History (Last Reviewed 02/19/19 @ 00:13 by Stew Aldrich MD) ESRD (end stage renal disease) on dialysis (Chronic) N18.6, Z99.2 Benign hypertension (Inactive) I10 BPH (benign prostatic hyperplasia) (Chronic) Depression (Chronic) F32.9 Hyperlipidemia (Chronic) E78.5 IgA nephropathy (Chronic) N02.8 Chronic gout (Chronic) [id number] Diabetes mellitus, type 2 (Chronic) E11.9 DIET CONTROLLED Diastolic Dysfunction EF 60% (Chronic) COPD (chronic obstructive pulmonary disease) (Chronic) J44.9 With chronic respiratory failure On 3 L nasal cannula Left kidney mass (Chronic) N28.89 Chronic low back pain (Chronic) M54.5, G89.29 Pulmonary hypertension (Chronic) I27.2 Paroxysmal atrial fibrillation (Chronic) I48.0 Anemia of chronic renal failure (Chronic) N18.9, D63.1 Atrial fibrillation I48.91 Osteomyelitis (Inactive) M86.9 distal phalanx of the middle finger on the left hand Vertebral osteomyelitis, acute (Inactive) M46.20 12/22/14 24 hours no growth. 12/21/14 1/2 cultures w/ staph aureus. Suspected source vertebral osteomyelitis, unable to confirm as unable to obtain GOLD standard MRI secondary to habitus. Allergies mirtazapine [From Remeron] Allergy (Verified 02/18/19 18:52) forgetful, doesn't remember anything Sulfa (Sulfonamide Antibiotics) Allergy (Verified 02/18/19 18:52) bleeding from kidneys aspirin Adverse Reaction (Verified 02/18/19 18:52) Nausea oxycodone HCl [From Percodan] Adverse Reaction (Verified 02/18/19 18:52) Nausea oxycodone terephthalate [From Percodan] Adverse Reaction (Verified 02/18/19 18:52) Nausea Home Medications: Ambulatory Orders Medication Instructions Recorded Calcium Acetate [Phoslo Gel Cap] 1,334 mg PO BID 11/08/16 ferrous sulfate 325 mg (65 mg 325 mg PO BID tab 05/12/18 iron) tablet,delayed release umeclidinium 62.5 mcg/actuation 1 inh INHALATION LUNCH 05/12/18 blister powder for inhalation B Complex W-C No.20/Folic Acid 1 mg PO DAILY@1200 08/18/18 [Virt-Caps Softgel] Docusate Sodium [Colace] 200 mg PO BID 08/18/18 Escitalopram Oxalate [Lexapro] 10 mg PO DAILY 08/18/18 Fluticasone/Vilanterol [Breo 1 ea IH DAILY 08/18/18 Ellipta 100-25 Mcg INH] Gabapentin [Neurontin] 300 mg PO BID 08/18/18 Pantoprazole Sodium [Protonix] 40 mg PO DAILY 08/18/18 Midodrine HCl 10 mg PO BID #60 tab 01/08/19 Acetaminophen [Tylenol] 650 mg PO Q4H PRN PRN 02/18/19 Ascorbic Acid 500 mg PO DAILY 02/18/19 Ipratropium/Albuterol Sulfate 3 ml INHALATION Q6H.RT 02/18/19 [Duoneb] Multivit,Tx with Iron,Minerals 1 tab PO DAILY 02/18/19 [Thera-M] Ondansetron HCl 8 mg PO BID PRN PRN 02/18/19 Warfarin Sodium 3 mg PO TU 02/18/19 Surgical History: Surgical History (Last Reviewed 02/19/19 @ 00:13 by Stew Aldrich MD) History of arteriovenostomy for renal dialysis Z99.2 History of cholecystectomy Z90.49 History of colonoscopy Z98.890 History of total bilateral knee replacement Z96.653 Status post biopsy of kidney Z98.890 Surgical History: colectomy, total knee arthroplasty, - Psychiatric History: No pertinent psych hx Lives: [facility] Smoking Status: Former smoker - *Family History Maternal History Items: COPD, Diabetes, Heart Disease, Hypertension - He, Pulmonary Disease, Renal Disease Paternal History Items: No pertinent history Review of Systems Unable to obtain accurate/complete ROS d/t: confusion. History was taken from the ED doctor and nursing staff. VTE Information - Inpt Only VTE Present on Admission: No VTE Mechan Device Prophylaxis: SCD's VTE Pharm Prophylaxis ordered?: No Patient Problems: Active and Suspected Problems (Last Reviewed 02/19/19 @ 00:06 by Stew Aldrich MD) Septic shock (Acute) - Physical Exam Vitals/I&O's: Vital Signs Temp Pulse Resp BP Pulse Ox 101 F H 103 H 19 H 71/47 L 96 02/18/19 20:48 02/18/19 21:21 02/18/19 21:21 02/18/19 21:21 02/18/19 21:21 Oxygen Flow Rate (L/min) 2 Oxygen Delivery Method Nasal Cannula Weight: 145.15 kg Body Mass Index (BMI) 45.9 Finger Stick Blood Glucose 97 Intake and Output for Last 24 Hours 02/16/19 02/17/19 02/18/19 23:59 23:59 23:59 Intake Total 1000 / 1000 Balance 1000 / 1000 General: Alert, Confused HEENT: Atraumatic, Normocephalic Neck: Supple, Trachea Midline Lungs: No rhonchi, No wheeze, No rales, Diminished, - - Chest with vascular access device on the right side Cardiovascular: Regular Rhythm, Normal S1, Normal S2, No murmurs, Tachycardic Abdomen: Bowel Sounds Present, Soft, Non Tender Extremities: No edema, Capillary Refill Less than 3 Seconds, - - Loss of parts of first 3 digits of the left hand; dialysis access device on the left upper arm Skin: Excoriated - Scrotum, - - Scabbed area on right gluteus Musculoskeletal: No Tenderness to Palpation of Joints or Extremities Neurological: Slurred Speech, Muscle tone normal, - Psych/Mental Status: Normal Affect, Appropriate Microbiology Past 72 Hours 02/18/19 19:55 Mucosa - Nasopharyngeal Influenza Types A,B Direct FA (FILIBERTO) - Final Laboratory Results 02/18/19 18:55: WBC 22.5 H, RBC 4.41 L, Hgb 13.0, Hct 42.2, MCV 95.7 H, MCH 29.5, MCHC 30.8 L, RDW Std Deviation 60.4 H, RDW Coeff of Dixie 17.2 H, Plt Count 131 L, MPV 11.4, Immature Gran % (Auto) 0.900, Neut % (Auto) 95.3 H, Lymph % (Auto) 0.7 L, [place] % (Auto) 3.0, Eos % (Auto) 0.0, Baso % (Auto) 0.1, Absolute Neuts (auto) 21.4 H, Absolute Lymphs (auto) 0.15 L, Nucleated RBC % 0, Differential Comment SCANNED 02/18/19 18:55: PT 35.6 H, INR 3.5 H*, APTT 61.8 H 02/18/19 18:55: Sodium 135 L, Potassium 4.4, Chloride 98, Carbon Dioxide 28.0, Anion Gap 9, BUN 60 H, Creatinine 5.53 H, Estim Creat Clear Calc 13.02, Est GFR (MDRD) Af Amer 13 L, Est GFR (MDRD) Non-Af 11 L, BUN/Creatinine Ratio 10.8, Glucose 161 H, Calcium 9.3, Total Bilirubin 0.70, AST 20, ALT 18, Alkaline Phosphatase 138 H, Total Protein 7.0, Albumin 2.9 L, Globulin 4.1, Albumin/Globulin Ratio 0.7 L 02/18/19 18:55: Lactic Acid 3.2 H* Current Medications Tobramycin Sulfate 510 mg/ (Dextrose) 62.75 mls @ 100 mls/hr IV X1 ONE Stop: 02/18/19 21:58 Vancomycin HCl 1,500 mg/ (Sodium Chloride) 530 mls @ 250 mls/hr IV X1 ONE Stop: 02/18/19 23:37 Assessment/Plan All Active Problems (Last Reviewed 02/19/19 @ 00:06 by Stew Aldrich MD) Septic shock (Acute) The patient is a 69 year old M who lives at a prison and with with a significant history of anemia of chronic renal failure; IgA nephropathy; left kidney mass; depression; diet-controlled diabetes; end-stage renal disease on dialysis COPD; and atrial fibrillation who presented to the emergency department with fever of 103 F; and found to have consistently elevated temperature; hypotension; neutrophilic leukocytosis; tachycardia; and tachypnea consistent with septic shock without a clear etiology. Septic shock without a clear etiology Because of choking at the prison it could be a probable aspiration pneumonia. However chest x-ray does not show any consolidation. It showed increased cardiac silhouette. Lactic acid: 3.2 RR: Maximum of 24 Heart rate: In the 100s. Blood culture ?2 is pending; follow Although patient is a dialysis patient reportedly he makes some urine. A Dunham catheter was placed at the emergency department to get urine and also told to check his temperature. At the time of examination patient had no made appreciable his urine. If patient makes appreciable urine urinalysis and urine culture ordered at the emergency department can be collected. Also will order strep pneumoniae and Legionella urine antigen. Antibiotics: Received vancomycin; Zosyn and tobramycin in the emergency department. We will continue patient of vancomycin pharmacy to dose; and Zosyn. Trend CBC and BMP. Of note patient has neutrophilic leukocytosis. IV hydration: Received 2 L of normal saline bolus at the emergency department; and also IV antibiotics. Because patient is a dialysis patient he was not given 30 ML per kilogram IV fluids per septic shock protocol. Levophed was considered but his blood pressure improved on IV fluids. Of note patient has chronic hypotension with typical systolic blood pressure around 90; and he is on home midodrine. Patient will be strictly n.p.o. and all po medication including midodrine will be held secondary to probable aspiration. Speech to eval patient for swallowing Rectal Tylenol PRN for fever Atrial fibrillation On presentation patient was in sinus tachycardia. INR was supratherapeutic at 3.5. Patient is n.p.o. so we will hold all p.o. medication including Coumadin. Repeat INR. Consider renal adjusted dose Lovenox or heparin as indicated. End-stage renal disease on dialysis Emergency department doctor discussed the case with [facility] who agreed to follow patient. Accordingly, will consult nephrology. Diabetes mellitus with hyperglycemia On presentation blood glucose on BMP was elevated. However it is within goal. Patient is diet-controlled diabetes at the prison. Trend BMP. DVT Prophylaxis INR is supratherapeutic. In any case we will put patient on SCD. Code Visit Inpatient E&M: 33634 Init Hosp L3
--- NOTE | 2019-02-18 23:10 | ED.RN ---
HOLD LEVOPHED FOR IMPROVED BP PER DR KILLIAN
--- NOTE | 2019-02-18 23:20 | ED.DCSUM_ITS ---
- ER Visit Summary Date of Service: 02/18/19 Chief Complaint: Fever History of Present Illness: The patient is a 69 M presenting from retirement for fever and altered mental status. Per retirement staff this started today. He has had temperature up to 103.8 at the retirement. He is normally alert a nd oriented x3. On arrival he is answering some questions appropriately and opening eyes to voice. He has a history of end-stage renal disease on hemodialysis. He received dialysis yesterday. History of diabetes, hypercholesterolemia, CHF, COPD, obesity, A. fib on Coumadin. He chronically wears oxygen. Per retirement staff he choked on his applesauce this afternoon. History is otherwise limited. Physical Examination: Blood pressure 76/23, temperature 102.8, heart rate 101, respiratory rate 19. Pulse ox 96% on nasal cannula. HEENT exam dry mucous membranes Neck is supple. Lungs are diminished bilaterally. Heart is regular and tachycardic Abdomen is soft obese nontender nondistended. Extremities are unremarkable. Skin is warm and dry. No focal neurologic deficit. Opens eyes to voice. Remainder of exam is unremarkable. Emergency Department Course and Treatment: Patient was given IV fluids, Tylenol. EKG is sinus tachycardia with PVCs rate of 102, similar to previous. CBC shows a white count of 22.5, platelet 131. Chemistries show sodium 135, glucose 161, BUN 60, creatinine 5.53. Liver enzymes show alk phos 138. INR 3.5. Lactic acid 3.2. Influenza negative. Blood cultures were sent. Patient does not make urine. Chest x-ray shows cardiomegaly with pulmonary vascular prominence. Due to sepsis of unknown source he was given vancomycin, Zosyn, tobramycin. Repeat blood pressure is 96/60 after fluids. Discussed with nephrology and hospitalist and patient will be admitted. Disposition: Admission Impression: Septic shock This note was generated with [employer] dictation software. It may contain incorrect words, spelling, and punctuation that were not noted in review of the chart prior to signing ED Disposition - Plan for ED Patient: Referrals: Heraclio Whitehead MD [Primary Care Provider] -
--- NOTE | 2019-02-18 23:35 | SEPSIS_ITS ---
Sepsis Note - Physical Exam/Vitals Objective: Chest X-Ray 02/18/19 19:45 IMPRESSION: Cardiomegaly with pulmonary vascular prominence. Electronically Signed: [place] DO Mark at 20:04 EST Tel [phone], Service support , Temp Pulse Resp BP Pulse Ox 100.7 F H 104 H 21 H 96/60 95 02/18/19 23:00 02/18/19 23:00 02/18/19 23:00 02/18/19 23:00 02/18/19 23:00 02/18/19 02/18/19 02/18/19 18:55 18:55 18:55 WBC RBC Hgb Hct MCV MCH MCHC RDW Std Deviation RDW Coeff of Dixie Plt Count MPV Immature Gran % (Auto) Neut % (Auto) Lymph % (Auto) Person % (Auto) Eos % (Auto) Baso % (Auto) Absolute Neuts (auto) Absolute Lymphs (auto) Nucleated RBC % Differential Comment PT 35.6 H INR 3.5 H* APTT 61.8 H Sodium 135 L Potassium 4.4 Chloride 98 Carbon Dioxide 28.0 Anion Gap 9 BUN 60 H Creatinine 5.53 H Estim Creat Clear Calc 13.02 Est GFR (MDRD) Af Amer 13 L Est GFR (MDRD) Non-Af 11 L BUN/Creatinine Ratio 10.8 Glucose 161 H Lactic Acid 3.2 H* Calcium 9.3 Total Bilirubin 0.70 AST 20 ALT 18 Alkaline Phosphatase 138 H Total Protein 7.0 Albumin 2.9 L Globulin 4.1 Albumin/Globulin Ratio 0.7 L 02/18/19 18:55 WBC 22.5 H RBC 4.41 L Hgb 13.0 Hct 42.2 MCV 95.7 H MCH 29.5 MCHC 30.8 L RDW Std Deviation 60.4 H RDW Coeff of Dixie 17.2 H Plt Count 131 L MPV 11.4 Immature Gran % (Auto) 0.900 Neut % (Auto) 95.3 H Lymph % (Auto) 0.7 L Person % (Auto) 3.0 Eos % (Auto) 0.0 Baso % (Auto) 0.1 Absolute Neuts (auto) 21.4 H Absolute Lymphs (auto) 0.15 L Nucleated RBC % 0 Differential Comment SCANNED PT INR APTT Sodium Potassium Chloride Carbon Dioxide Anion Gap BUN Creatinine Estim Creat Clear Calc Est GFR (MDRD) Af Amer Est GFR (MDRD) Non-Af BUN/Creatinine Ratio Glucose Lactic Acid Calcium Total Bilirubin AST ALT Alkaline Phosphatase Total Protein Albumin Globulin Albumin/Globulin Ratio General: Alert, Confused Lungs: Diminished Cardiovascular: Regular Rhythm, Normal S1, Normal S2, No murmurs, Tachycardic Capillary Refill: <3 seconds Peripheral Pulses: Normal Skin Color: [place], - - Pale bilateral lower extremities - Assessment/Plan Septic shock: Patient received 2 L normal saline bolus at the emergency department; and IV antibiotics. IV fluids of 30 ML kilogram bolus per septic shock protocol was not given because patient is a dialysis patient. Continue trend lactic acid Blood cultures was ordered at the emergency department. Urine cultures ordered. Of note patient is dialysis patient and make little urine. Awaiting appreciable urine to test for urinalysis and urine culture. Received vancomycin; Zosyn and tobramycin in the emergency department. Continue patient on vancomycin and Zosyn.
[2019-02-18 23:49] LABS: Reflex Lactate? Y
[2019-02-19] VITALS (58 sets, daily range): BP systolic 50–139; BP diastolic 22–91; PULSE 94–113; RESP 12–107; TEMP 37.6–39.1; O2SAT 89–100; BMI 50.1; BMI 50.2
--- NOTE | 2019-02-19 00:55 | PCM.RX.CS ---
Consult Pharmacy has been consulted to manage selected antiobiotic: Vancomycin Type of Consult: New start Suspected Infection: Sepsis Prior Doses of Antibiotics Received/Current Regimen: Medications Discontinued Medications Vancomycin HCl 1,500 mg/ (Sodium Chloride) 530 mls @ 250 mls/hr IV X1 ONE Stop: 02/18/19 23:37 Last Admin: 02/18/19 23:07 Dose: 250 mls/hr Labs: Sodium 135 mmol/L (136-145) L 02/18/19 18:55 Potassium 4.4 mmol/L (3.5-5.1) 02/18/19 18:55 Chloride 98 mmol/L (98-107) 02/18/19 18:55 Carbon Dioxide 28.0 mmol/L (21.0-32.0) 02/18/19 18:55 Anion Gap 9 (5-15) 02/18/19 18:55 BUN 60 mg/dL (7-18) H 02/18/19 18:55 Creatinine 5.53 mg/dL (0.70-1.30) H 02/18/19 18:55 Est GFR (MDRD) Af Amer 13 mL/min (>60) L 02/18/19 18:55 Est GFR (MDRD) Non-Af 11 mL/min (>60) L 02/18/19 18:55 BUN/Creatinine Ratio 10.8 RATIO (10-20) 02/18/19 18:55 Glucose 161 mg/dL (74-106) H 02/18/19 18:55 Microbiology: Microbiology 02/18/19 19:55 Mucosa - Nasopharyngeal Influenza Types A,B Direct FA (FILIBERTO) - Final Weight used for dosin kg Estimated Creatinine Clearance: 13 Goal Trough: 15-20 mcg/mL Pharmacy Plan for Drug Dosing: Initial dose of 1500mg was given in ED 02/18/19. Next dose of 1000mg will be scheduled after next dialysis. Continuing doses will be determined from random vancomycin levels drawn prior to subsequent dialyses. Pharmacy Service will continue to monitor and adjust dosing as required.
[2019-02-19 01:02] LABS: Lactic Acid 2.3 mmol/L (0.4-1.9)
[2019-02-19 03:56] LABS: Bedside Glucose 145 mg/dL (70-110)
[2019-02-19 03:56] LABS: Absolute Lymphocyte Count 0.14 X10^3/uL (0.83-4.51); Absolute Neutrophil Count 16.2 X10^3/uL (2.0-7.7); Basophil# 0.03 X10^3/uL; Basophil% 0.2 % (0-1); Eosinophil# 0.08 X10^3/uL; Eosinophils% 0.5 % (0-5); Hematocrit 39.8 % (40-54); Hemoglobin 12.1 g/dL (13.0-16.5); Lymphocyte # 0.14 X10^3/ul (4.0); Lymphocyte % 0.8 % (19-41); Mean Corp Hgb Conc 30.4 g/dL (32-36); Mean Corpuscular Hgb 29.4 pg (27.0-32.0); Mean Corpuscular Volume 96.8 fL (80-94); Mean Platelet Vol. 11.8 fl (6.2-12.0); Monocyte# 0.52 X10^3/uL; NRBC Flagged by Analyzer 0.1 % (0-5); Neutrophil # 16.15 X10^3/uL (2.7-7.7); Neutrophil % 94.5 % (47-70); POSITIVE DIFFERENTIAL YES; Platelet Count 107 K/mm3 (150-450); RBC Distribution Width CV 17.2 % (11.6-14.6); RBC Distribution Width SD 61.5 fl (35.1-43.9); Red Blood Count 4.11 M/mm3 (4.6-6.2); White Blood Count 17.1 K/mm3 (4.4-11.0)
[2019-02-19 04:00] LABS: Differential Indicated SCAN CRITERIA MET
--- NOTE | 2019-02-19 04:08 | CT_ITS ---
HISTORY: CVASTROKE SYMPTOMS Technique:CT Head or Brain W/O Contrast Injection Number of Images including paperwork:268 Comparison: None available. Findings: CT images of the head were obtained without contrast. Periventricular deep and subcortical white matter disease is present. Paranasal sinuses are clear. The brain is atrophic. Calcific ASCVD involves intracranial arteries. No acute intracranial edema or hemorrhage. No acute abnormality of orbits. Middle ear cavities and mastoid air cells are well aerated. Skull is normal. CT/Brain/Head without Contrast IMPRESSION: No acute intracranial abnormality. Chronic changes as above. ASPECT 10. Individualized dose optimization techniques were used for this CT. at 1967 Reported and signed by: Ashok Mead MD N.B. : The above information has been verbally conveyed by Ashok Mead MD to Dr. Valdemar MD, on 02/19/2019 04:27:49 (ET). Electronically Signed: Ashok Mead MD at 4:21 EST Tel , Service support ,
--- NOTE | 2019-02-19 04:08 | CT_ITS ---
We are attempting to reach an attending provider to discuss findings. An addendum with communication details will be sent when the communication is complete. HISTORY: CVA,GARBLED SPEECHHX:DIABETES-ON DIALYSIS,HTN TECHNIQUE: Routine carotid CT angiogram protocol was performed without and with IV contrast. In addition, images were obtained of the [place]. Nascet criteria using the distal ICAs for comparison were used for evaluation of stenoses. 3D reconstructions were reviewed. A radiation dose optimization technique was used for this scan. IV Contrast dosage and agent: 100mL Isovue-370 IV 100mL Isovue-370 COMPARISON: CT scan of the brain from 8 minutes earlier FINDINGS: --NECK: AORTIC ARCH AND BRANCHES: Atherosclerotic plaque within the aortic arch. The patient has a bovine arch with a common origin of the brachiocephalic artery and the left common carotid artery. Flow within the origin of the left common carotid artery appears to be diminished due to calcific plaque within the aortic arch at its origin. The origin of the left common carotid artery is somewhat obscured due to the high density contrast bolus within the adjacent left brachiocephalic vein. The origin of the left common carotid artery, is therefore, suboptimally evaluated. There is also some motion artifact while the origin of the left common carotid artery was being scanned. RIGHT CCA: Severe amounts of circumferential calcific plaque is present within the distal right CCA. The remainder of the vessel is widely patent without dissection RIGHT ICA: Severe calcific plaque from the distal right CCA continues into the right carotid bulb and right ICA. The reformatted images are thick slab reformatted images. This makes accurate assessment of the carotid bulb on the reformats difficult. Therefore enforce to use the axial images. At its narrowest, series 2 image 126, I measure the opacified lumen of the right carotid bulb to be 4 mm. More cranial, away from the atherosclerotic plaque, I measure the lumen of the right ICA to be 5 mm, consistent with a 20% stenosis. LEFT CCA: Calcific plaque is also present within the distal left CCA that continues into the left carotid bulb. The plaque on the left is more severe than the plaque on the right LEFT ICA: Due to the severity of the calcific plaque that is circumferential at the origin of the left ICA, I measure the narrowest point of the lumen to be 2 mm. More cranially, away from the atherosclerotic disease, I measure the lumen of the left ICA to be 5 mm. This is therefore a 60% stenosis to the left ICA RIGHT VERTEBRAL ARTERY: No occlusion, significant stenosis or dissection. LEFT VERTEBRAL ARTERY: Some calcific plaque is present at the origin of the left vertebral artery. The vessel is widely patent throughout its course and remains patent into the skull without aneurysm or dissection NECK SOFT TISSUES: A large bore right IJ central venous catheter, likely a dialysis catheter is present and terminates lower than the lowest portion of the lowest image The right IJ is larger than the left and appears patent. LUNG APICES: Some posterior pleural-parenchymal disease is suspected BONES: multilevel degenerative disc disease. Facet arthropathy. Poor dentition. --HEAD: --Anterior circulation: ICAs: Severe amounts of calcific plaque are present within the cavernous sinus portions of both ICAs, but with less than 50% stenosis. Both ICAs remain patent without aneurysm or dissection ACAs: No significant stenosis at the visualized segments. ACOM: Not identified MCAs: No significant stenosis at the visualized segments. 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 BASILAR ARTERY: No significant stenosis. VERTEBRAL ARTERIES: Significant calcific plaque is present within the intracranial portion of the left vertebral artery contributing to a stenosis No evidence of intracranial aneurysm or vascular malformation. CT/CTA Head AND Neck W/ Contrast IMPRESSION: Severe bilateral distal CCA into carotid bulb calcific plaque contributing to 20% stenosis on the right and 60% stenosis on the left. No dissection. Severe amounts of calcific plaque in the intracranial portion of the left vertebral artery. No stenosis or aneurysm perceived. No occlusion identified. Individualized dose optimization techniques were used for this CT. at 0456 Reported and signed by: Ashok Mead MD Electronically Signed: Ashok Mead MD at 4:58 EST Tel , Service support ,
--- NOTE | 2019-02-19 04:09 | PCM.PN.BLA ---
Progress Note Stroke alert; Notified by nursing team that patient continues to be stuporous. Nurse reports NIH of about 14. Stroke alert was called. Not hypo/hyperglycemic. Blood glucose in 140s. Sent for CT head without contrast. Call sent out to [facility] Tele stroke team. While on the table added CTA head and neck Differential diagnosis include stroke; septic shock. Of note patient is being treated for septic shock without a clear etiology. Of note INR is 3.5. Patient is on Coumadin STROKE Vital Signs/Narrative: Vital Signs Temp Pulse Resp BP BP Pulse Ox 02/19/19 03:12 97 02/19/19 03:00 99.6 F H 97 16 90/40 L 94 02/19/19 02:00 100.5 F H 98 18 111/40 L 93 02/19/19 01:15 101.2 F H 103 H 22 H 117/59 L 93 02/19/19 01:00 101.1 F H 102 H 17 107/59 L 91 02/19/19 00:45 101.1 F H 101 H 20 H 122/52 H 89 02/19/19 00:32 102 H 02/19/19 00:30 101.2 F H 104 H 21 H 92/47 L 89
[2019-02-19 04:11] LABS: Anion Gap 7 (5-15); BUN 66 mg/dL (7-18); BUN/Creat Ratio 11.3 RATIO (10-20); Calcium,Total 8.3 mg/dL (8.5-10.1); Chloride 100 mmol/L (98-107); Creatinine, Serum 5.86 mg/dL (0.70-1.30); EST Glomerular Filtration Rate 10 mL/min (>60); Est Glom Filt Rate - Afr Amer 12 mL/min (>60); Estimated Creatinine Clearance 10.74 ml/min; Glucose 155 mg/dL (74-106); Potassium 5.4 mmol/L (3.5-5.1); Sodium Level 135 mmol/L (136-145)
--- NOTE | 2019-02-19 04:13 | NURSING ---
0400 Stroke alert called d/t worsening neuro changes, Dr. Aldrich at bedside within 2 mins. Pt taken to [address] stat by primary nurse IMAN Barrios.
[2019-02-19 04:18] LABS: Differential Comment SCANNED; Lactic Acid 2.1 mmol/L (0.4-1.9)
--- NOTE | 2019-02-19 04:50 | EKG12_ITS ---
Test Reason : RHYTHM CHANGE Blood Pressure : / mmHG Vent. Rate : 102 BPM Atrial Rate : 102 BPM P-R Int : 206 ms QRS Dur : 130 ms QT Int : 350 ms P-R-T Axes : 041 -51 052 degrees QTc Int : 456 ms Sinus tachycardia Left axis deviation Low voltage QRS (Limb Leads) Right bundle branch block Abnormal ECG Confirmed by LESLIE CORTES, ELLYN ([id number]), editorial assistant JUDITH CABRALES ([id number]) on 02/24/2019 1:12:56 PM Referred By: KJ Confirmed By:ELLYN NELSON MD
--- NOTE | 2019-02-19 05:20 | EKG12_ITS ---
Test Reason : STROKE ALERT Blood Pressure : / mmHG Vent. Rate : 103 BPM Atrial Rate : 103 BPM P-R Int : 206 ms QRS Dur : 130 ms QT Int : 348 ms P-R-T Axes : 041 -52 043 degrees QTc Int : 455 ms Sinus tachycardia Left axis deviation Right bundle branch block Septal infarct , age undetermined Inferior infarct , age undetermined Abnormal ECG When compared with ECG of 18-FEB-2019 19:30, MANUAL COMPARISON REQUIRED, DATA IS UNCONFIRMED Confirmed by JENNIFER CORTES, MAXIME ([id number]), editor in chief TOSHIA CAPPS ([id number]) on 03/01/2019 1:06:59 PM Referred By: KJ Confirmed By:PRADEEP RODRIGUEZ MD
[2019-02-19 05:27] LABS: Prothrombin Time (Protime)PT. 39.8 SECONDS (11.7-14.9)
[2019-02-19 05:28] LABS: International Normalized Ratio 4.1
--- NOTE | 2019-02-19 05:54 | PCM.PN.BLA ---
Progress Note Received a call from [facility] radiologist that patient has a 20% right ICA stenosis; and 60% left ICA stenosis; and carotid bulb calcification. Most likely his 60% left ICA stenosis is not causing his symptoms. His symptoms is most likely from the septic shock. Continue to treat patient for septic shock. STROKE Vital Signs/Narrative: Vital Signs Temp Pulse Resp BP BP Pulse Ox 02/19/19 05:00 101.6 F H 100 19 H 128/57 H 99 02/19/19 04:00 101.5 F H 97 19 H 107/60 92 02/19/19 03:57 101.5 F H 97 16 107/60 92 02/19/19 03:12 97 02/19/19 03:00 99.6 F H 97 16 90/40 L 94 02/19/19 02:00 100.5 F H 98 18 111/40 L 93
--- NOTE | 2019-02-19 06:10 | EKG12_ITS ---
Test Reason : RHYTHM CHANGE Blood Pressure : / mmHG Vent. Rate : 101 BPM Atrial Rate : 101 BPM P-R Int : 260 ms QRS Dur : 134 ms QT Int : 378 ms P-R-T Axes : 072 -67 018 degrees QTc Int : 490 ms Sinus tachycardia with 1st degree A-V block with occasional Premature ventricular complexes Left axis deviation Right bundle branch block Septal infarct , age undetermined Inferior infarct , age undetermined , cannot be excluded Abnormal ECG Confirmed by LESLIE CORTES, ELLYN ([id number]), brands editor JUDITH CABRALES ([id number]) on 02/24/2019 1:32:55 PM Referred By: Confirmed By:ELLYN NELSON MD
[2019-02-19] MEDS: Acetaminophen 650 MG Suppository RECTAL ×3 (06:30→23:46)
[2019-02-19] MEDS: Budesonide Respules 0.5 MG/2 ML AMPUL.NEB. INHALATION (06:39)
[2019-02-19] MEDS: Ipratropium/Albuterol Sulfate 3 ML AMPUL.NEB INHALATION (06:39)
[2019-02-19 07:46] LABS: Reflex Lactate? Y
--- NOTE | 2019-02-19 08:27 | PN_ITS ---
Progress Note 69-year-old male with past medical history of ESRD on hemodialysis via right IJ hemodialysis catheter, history of chronic hypotension who was recently admitted and discharged on 01/08/19. Patient's management has been that of septic shock likely from infected decubitus ulcer and possibly cellulitis of the intertrigo's space. Events of last night noted with negative work-up for possible stroke. Vitals reviewed, remain hypotensive. Not on pressors yet. 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 Continue with vancomycin and Zosyn IV Code status - DSNR-CCA STROKE Vital Signs/Narrative: Vital Signs Temp Pulse Resp BP Pulse Ox 02/19/19 08:00 101.9 F H 101 H 18 98/40 L 99 02/19/19 07:54 101 H 02/19/19 07:00 102.1 F H 102 H 20 H 98/40 L 96 02/19/19 06:39 101 H 19 H 89 02/19/19 06:00 100.9 F H 102 H 17 95/38 L 95 02/19/19 05:00 101.6 F H 100 19 H 128/57 H 99
--- NOTE | 2019-02-19 08:35 | PCM.CON.CC ---
Problem List (1) Septic shock Status: Acute (2) ESRD (end stage renal disease) on dialysis Status: Chronic (3) Benign hypertension Status: Inactive (4) BPH (benign prostatic hyperplasia) Status: Chronic Qualifiers: Lower urinary tract symptom presence: symptoms absent Qualified Code(s): N40.0 - Benign prostatic hyperplasia without lower urinary tract symptoms (5) Depression Status: Chronic (6) Hyperlipidemia Status: Chronic Qualifiers: Hyperlipidemia type: pure hypercholesterolemia Qualified Code(s): E78.00 - Pure hypercholesterolemia, unspecified; E78.0 - Pure hypercholesterolemia (7) Chronic gout Status: Chronic (8) Diabetes mellitus, type 2 Status: Chronic Qualifiers: Diabetes mellitus group home insulin 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 Diabetes mellitus complication status: with kidney complications Diabetes mellitus complication detail: with chronic kidney disease Chronic kidney disease stage: on chronic dialysis Qualified Code(s): E11.22 - Type 2 diabetes mellitus with diabetic chronic kidney disease; N18.6 - End stage renal disease; Z79.4 - MCC (current) use of insulin; Z99.2 - Dependence on renal dialysis Comment: DIET CONTROLLED (9) KATHY on CPAP Status: Chronic 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 (10) Left kidney mass Status: Chronic (11) Super obesity Status: Chronic Comment: bmi 64 (12) Chronic low back pain Status: Chronic (13) Pulmonary hypertension Status: Chronic (14) Paroxysmal atrial fibrillation Status: Chronic Reason for Consult Date of Consultation: 02/19/19 Reason for Consultation: Septic shock History of Present Illness: The patient is a 69 year old M, with past medical history listed below, who presented to [facility] on 02/18/2019 secondary to fever and altered mental status. Patient is a chronic hemodialysis patient and was reportedly alert and oriented x3 at lunch. However, in the evening patient was noted to have a temperature of 103.8, so EMS was contacted. Patient had received hemodialysis on the day prior to presentation to the ER. Patient is on Coumadin at baseline secondary to chronic A. fib, but also carries diagnosis of COPD and CHF for which she wears chronic oxygen. Patient had reportedly choked on applesauce in the afternoon, but history was relatively limited. On presentation to the ER, patient was hypotensive at 76/23 with a temperature of 102.8 ?F and tachycardic at 101 bpm. Patient was reportedly 96% on nasal cannula, but had dry mucous membranes. Patient was given IV fluids, vancomycin and Zosyn. Patient did have some improvement in blood pressure following the fluids, so no pressors were initiated. Patient was admitted to the intensive care unit for further evaluation. On my arrival at approximately 6 AM, patient's blood pressures were acceptable, but patient was unable to provide much more information other than mumbling yes and no. No family was at the bedside. Over the course of the morning, patient became progressively hypotensive. Patient does have an elevated INR, so FFP were ordered and patient is going to have a central line placed emergently. Discussed with surgery and reportedly the patient has a fistula that is nonfunctional at this time. It is unclear when the tunneled hemodialysis line was placed, but overnight nursing reported the site did not look very good. Within 12 hours of presentation, patient has had all blood cultures come back positive for MRSA and had approximately 8:45 AM started to become significantly hypotensive. Patient was initiated on peripheral Levophed and FFP were ordered. Patient is having an emergent central line placed at this time by nurse practitioner. property worker has been consulted and is working on contacting next of kin. Unable to provide additional review of systems at this time given acute medical illness. Past Medical History Past Medical History (Chronic Problems): Chronic Problems (Last Reviewed 02/19/19 @ 00:13 by Stew Aldrich MD) ESRD (end stage renal disease) on dialysis (Chronic) BPH (benign prostatic hyperplasia) (Chronic) Depression (Chronic) Hyperlipidemia (Chronic) IgA nephropathy (Chronic) Chronic gout (Chronic) Diabetes mellitus, type 2 (Chronic) DIET CONTROLLED Diastolic Dysfunction EF 60% (Chronic) KATHY on CPAP (Chronic) 16 CM WATER COPD (chronic obstructive pulmonary disease) (Chronic) With chronic respiratory failure On 3 L nasal cannula Left kidney mass (Chronic) Super obesity (Chronic) bmi 64 Chronic low back pain (Chronic) Pulmonary hypertension (Chronic) Paroxysmal atrial fibrillation (Chronic) Anemia of chronic renal failure (Chronic) Falls frequently (Chronic) Medical History: Medical History (Last Reviewed 02/19/19 @ 00:13 by Stew Aldrich MD) ESRD (end stage renal disease) on dialysis (Chronic) N18.6, Z99.2 Benign hypertension (Inactive) I10 BPH (benign prostatic hyperplasia) (Chronic) Depression (Chronic) F32.9 Hyperlipidemia (Chronic) E78.5 IgA nephropathy (Chronic) N02.8 Chronic gout (Chronic) [id number] Diabetes mellitus, type 2 (Chronic) E11.9 DIET CONTROLLED Diastolic Dysfunction EF 60% (Chronic) COPD (chronic obstructive pulmonary disease) (Chronic) J44.9 With chronic respiratory failure On 3 L nasal cannula Left kidney mass (Chronic) N28.89 Chronic low back pain (Chronic) M54.5, G89.29 Pulmonary hypertension (Chronic) I27.2 Paroxysmal atrial fibrillation (Chronic) I48.0 Anemia of chronic renal failure (Chronic) N18.9, D63.1 Atrial fibrillation I48.91 Osteomyelitis (Inactive) M86.9 distal phalanx of the middle finger on the left hand Vertebral osteomyelitis, acute (Inactive) M46.20 12/22/14 24 hours no growth. 12/21/14 1/2 cultures w/ staph aureus. Suspected source vertebral osteomyelitis, unable to confirm as unable to obtain GOLD standard MRI secondary to habitus. Allergies mirtazapine [From Remeron] Allergy (Verified 02/18/19 18:52) forgetful, doesn't remember anything Sulfa (Sulfonamide Antibiotics) Allergy (Verified 02/18/19 18:52) bleeding from kidneys aspirin Adverse Reaction (Verified 02/18/19 18:52) Nausea oxycodone HCl [From Percodan] Adverse Reaction (Verified 02/18/19 18:52) Nausea oxycodone terephthalate [From Percodan] Adverse Reaction (Verified 02/18/19 18:52) Nausea Home Medications: Ambulatory Orders Medication Instructions Recorded Calcium Acetate [Phoslo Gel Cap] 1,334 mg PO BID 11/08/16 ferrous sulfate 325 mg (65 mg 325 mg PO BID tab 05/12/18 iron) tablet,delayed release umeclidinium 62.5 mcg/actuation 1 inh INHALATION LUNCH 05/12/18 blister powder for inhalation B Complex W-C No.20/Folic Acid 1 mg PO DAILY@1200 08/18/18 [Virt-Caps Softgel] Docusate Sodium [Colace] 200 mg PO BID 08/18/18 Escitalopram Oxalate [Lexapro] 10 mg PO DAILY 08/18/18 Fluticasone/Vilanterol [Breo 1 ea IH DAILY 08/18/18 Ellipta 100-25 Mcg INH] Gabapentin [Neurontin] 300 mg PO BID 08/18/18 Pantoprazole Sodium [Protonix] 40 mg PO DAILY 08/18/18 Midodrine HCl 10 mg PO BID #60 tab 01/08/19 Acetaminophen [Tylenol] 650 mg PO Q4H PRN PRN 02/18/19 Ascorbic Acid 500 mg PO DAILY 02/18/19 Ipratropium/Albuterol Sulfate 3 ml INHALATION Q6H.RT 02/18/19 [Duoneb] Multivit,Tx with Iron,Minerals 1 tab PO DAILY 02/18/19 [Thera-M] Ondansetron HCl 8 mg PO BID PRN PRN 02/18/19 Warfarin Sodium 3 mg PO TU 02/18/19 Surgical History: Surgical History (Last Reviewed 02/19/19 @ 00:13 by Stew Aldrich MD) History of arteriovenostomy for renal dialysis Z99.2 History of cholecystectomy Z90.49 History of colonoscopy Z98.890 History of total bilateral knee replacement Z96.653 Status post biopsy of kidney Z98.890 Surgical History: colectomy, total knee arthroplasty, - Psychiatric History: No pertinent psych hx Lives: Assisted Smoking Status: Former smoker - *Family History Maternal History Items: COPD, Diabetes, Heart Disease, Hypertension - He, Pulmonary Disease, Renal Disease Paternal History Items: No pertinent history Review of Systems Unable to obtain accurate/complete ROS d/t: Acute mental status Patient Problems: Active and Suspected Problems (Last Reviewed 02/19/19 @ 00:13 by Stew Aldrich MD) Septic shock (Acute) Objective: All imaging was personally reviewed. Patient does have stenosis noted without obvious infarct. Previous medical records were also reviewed. - Physical Exam Vitals/I&O's: Vital Signs Temp Pulse Resp BP Pulse Ox 38.8 C H 101 H 18 98/40 L 99 02/19/19 08:00 02/19/19 08:00 02/19/19 08:00 02/19/19 08:00 02/19/19 08:00 Oxygen Flow Rate (L/min) 4 Oxygen Delivery Method Nasal Cannula Weight: 141 kg Body Mass Index (BMI) 50.1 Finger Stick Blood Glucose 145 Intake and Output for Last 24 Hours 02/17/19 02/18/19 02/19/19 23:59 23:59 23:59 Intake Total 2099 702.75 / 702.75 Output Total Balance 2099 701.75 / 701.75 General: Confused, Disoriented, Lethargic, Non-Cooperative, - - Morbidly obese. Not following commands. HEENT: Atraumatic, PERRLA, EOMI, Normocephalic, - - Scleral injection without icterus Oral: No Gingival or Mucosal Lesions/ Ulcerations, Dry Mucosa, - - Crowded posterior pharynx Neck: Supple, No JVD, No Nodes, Trachea Midline Lungs: No rhonchi, No wheeze, No rales, Diminished, - - Fair effort. Cardiovascular: Normal S1, Normal S2, No murmurs, No rub noted, No Gallop, Tachycardic, - - Distant heart sounds Abdomen: Bowel Sounds Present, Soft, Non Tender, Distended - Slightly, Obese Extremities: No clubbing, No cyanosis, Edema, - - Multiple peripheral amputations that are healed. Venous stasis changes of the lower extremities. Skin: No breakdown, - - Hemodialysis line site shows surrounding erythema without obvious fluctuance or pus. Musculoskeletal: No Tenderness to Palpation of Joints or Extremities Lymphatic: No Cervical, Supraclavicular, or Inguinal Adenopathy Neurological: - - Decreased mental status. Not attempting to vocalize. Spontaneous movement of all extremities. Psych/Mental Status: Impulsive, Restless Microbiology Past 72 Hours 02/18/19 18:55 Blood Culture (Wb) - Venous Blood Culture - Preliminary 02/18/19 18:55 Blood Culture (Wb) - Venous Blood Culture - Preliminary 02/18/19 19:55 Mucosa - Nasopharyngeal Influenza Types A,B Direct FA (FILIBERTO) - Final Laboratory Results 02/18/19 18:55: WBC 22.5 H, RBC 4.41 L, Hgb 13.0, Hct 42.2, MCV 95.7 H, MCH 29.5, MCHC 30.8 L, RDW Std Deviation 60.4 H, RDW Coeff of Dixie 17.2 H, Plt Count 131 L, MPV 11.4, Immature Gran % (Auto) 0.900, Neut % (Auto) 95.3 H, Lymph % (Auto) 0.7 L, Lucas % (Auto) 3.0, Eos % (Auto) 0.0, Baso % (Auto) 0.1, Absolute Neuts (auto) 21.4 H, Absolute Lymphs (auto) 0.15 L, Nucleated RBC % 0, Differential Comment SCANNED 02/18/19 18:55: PT 35.6 H, INR 3.5 H*, APTT 61.8 H 02/18/19 18:55: Sodium 135 L, Potassium 4.4, Chloride 98, Carbon Dioxide 28.0, Anion Gap 9, BUN 60 H, Creatinine 5.53 H, Estim Creat Clear Calc 13.02, Est GFR (MDRD) Af Amer 13 L, Est GFR (MDRD) Non-Af 11 L, BUN/Creatinine Ratio 10.8, Glucose 161 H, Calcium 9.3, Total Bilirubin 0.70, AST 20, ALT 18, Alkaline Phosphatase 138 H, Total Protein 7.0, Albumin 2.9 L, Globulin 4.1, Albumin/Globulin Ratio 0.7 L 02/18/19 18:55: Lactic Acid 3.2 H* 02/19/19 00:27: Lactic Acid 2.3 H* 02/19/19 03:35: WBC 17.1 H, RBC 4.11 L, Hgb 12.1 L, Hct 39.8 L, MCV 96.8 H, MCH 29.4, MCHC 30.4 L, RDW Std Deviation 61.5 H, RDW Coeff of Dixie 17.2 H, Plt Count 107 L, MPV 11.8, Immature Gran % (Auto) 1.000 H, Neut % (Auto) 94.5 H, Lymph % (Auto) 0.8 L, Lucas % (Auto) 3.0, Eos % (Auto) 0.5, Baso % (Auto) 0.2, Absolute Neuts (auto) 16.2 H, Absolute Lymphs (auto) 0.14 L, Nucleated RBC % 0.1, Differential Comment SCANNED 02/19/19 03:35: PT 39.8 H, INR 4.1 H* 02/19/19 03:35: Sodium 135 L, Potassium 5.4 H, Chloride 100, Carbon Dioxide 28.0, Anion Gap 7, BUN 66 H, Creatinine 5.86 H, Estim Creat Clear Calc 10.74, Est GFR (MDRD) Af Amer 12 L, Est GFR (MDRD) Non-Af 10 L, BUN/Creatinine Ratio 11.3, Glucose 155 H, Calcium 8.3 L 02/19/19 03:35: Lactic Acid 2.1 H* 02/19/19 03:49: POC Glucose 145 H Current Medications Acetaminophen (Tylenol) 650 mg RECTAL Q4H PRN PRN PRN Reason: Pain Score 1-10/Temp > 100.7 F Last Admin: 02/19/19 06:30 Dose: 650 mg Documented by: Albuterol/Ipratropium (Duoneb) 3 ml INHALATION Q6H.RT [facility] Last Admin: 02/19/19 06:39 Dose: 3 ml Documented by: Bisacodyl (Dulcolax) 5 mg PO DAILY PRN PRN PRN Reason: Constipation Budesonide (Pulmicort Aerosol) 0.5 mg INHALATION Q12H.RT [facility] Last Admin: 02/19/19 06:39 Dose: 0.5 mg Documented by: Glucagon () 1 mg IM .X1 PRN PRN Reason: Hypoglycemia Heparin Sodium (Porcine) () 2,500 units IV UD PRN PRN Reason: Dialysis Cath Heparin Flush Piperacillin Sod/Tazobactam (Sod 3.375 gm/ Sodium Chloride) 50 mls @ 12.5 mls/hr IV Q12 [facility] Pantoprazole Sodium 40 mg/ (Sodium Chloride) 110 mls @ 330 mls/hr IV Q24 [facility] Last Infusion: 02/19/19 02:01 Dose: Infused Documented by: Vancomycin IV Pharmacy to Dose (1,500 ea/ Sodium Chloride) 500 mls @ 250 mls/hr IV PRN PRN; Protocol Dextrose (Dextrose 10%-Water) 250 mls @ 999 mls/hr IV X1 PRN; Protocol PRN Reason: HYPOGLYCEMIA Sodium Chloride () 250 mls @ 15 mls/hr IV .[id number] PRN PRN Reason: Saline Flush Phytonadione 5 mg/ Sodium (Chloride) 50.5 mls @ 150 mls/hr IV X1 ONE Stop: 02/19/19 08:27 Ondansetron HCl (Zofran) 4 mg IV Q8H PRN PRN PRN Reason: NAUSEA/VOMITING Sodium Chloride () 10 ml IV UD PRN PRN Reason: Dialysis Catheter Flush Sodium Chloride () 10 - 40 ml IV UD PRN PRN Reason: SALINE FLUSH Clinical Impression(s) from Imaging Studies Chest X-Ray 02/18/19 19:45 IMPRESSION: Cardiomegaly with pulmonary vascular prominence. Electronically Signed: Guanako Flores DO at 20:04 EST Tel [phone], Service support , Brain CT 02/19/19 04:08 IMPRESSION: No acute intracranial abnormality. Chronic changes as above. ASPECT 10. Individualized dose optimization techniques were used for this CT. at 0423 Reported and signed by: Ashok Mead MD N.B. : The above information has been verbally conveyed by Ashok Mead MD to Dr. Valdemar MD, on 02/19/2019 04:27:49 (ET). Electronically Signed: Ashok Mead MD at 4:21 EST Tel , Service support , Head/Neck CTA 02/19/19 04:08 IMPRESSION: Severe bilateral distal CCA into carotid bulb calcific plaque contributing to 20% stenosis on the right and 60% stenosis on the left. No dissection. Severe amounts of calcific plaque in the intracranial portion of the left vertebral artery. No stenosis or aneurysm perceived. No occlusion identified. Individualized dose optimization techniques were used for this CT. at 045 Reported and signed by: Ashok Mead MD Electronically Signed: Ashok Mead MD at 4:58 EST Tel , Service support , ADDENDUM: 02/19/19 0508 IMPRESSION: Severe bilateral distal CCA into carotid bulb calcific plaque contributing to 20% stenosis on the right and 60% stenosis on the left. No dissection. Severe amounts of calcific plaque in the intracranial portion of the left vertebral artery. No stenosis or aneurysm perceived. No occlusion identified. Individualized dose optimization techniques were used for this CT. at 0459 Reported and signed by: Ashok Mead MD N.B. : The above information has been verbally conveyed by Ashok Mead MD to Dr. Valdemar MD, on 02/19/2019 05:01:40 (ET). Electronically Signed: Ashok Mead MD at 4:58 EST Tel , Service support , Assessment/Plan Active and Suspected Problems (Last Reviewed 02/19/19 @ 00:13 by Stew Aldrich MD) Septic shock (Acute) RECOMMENDATIONS: 1. Emergent central line and dialysis line 2. Continue vancomycin around dialysis 3. FFP and vitamin K to reverse INR 4. Remove tunneled hemodialysis line and culture tip 5. Initiate Levophed for blood pressure support 6. Potential stress dose steroids and vasopressin through the day 7. Wean FiO2 as tolerated. Patient reportedly DNR Comfort Care arrest without intubation IMPRESSIONS: 1. Septic shock secondary to MRSA secondary to probable line infection Clinical suspicion for MRSA bacteremia secondary to hemodialysis line. Patient has grown blood cultures within 12 hours with MRSA indicating high bacterial burden at this time. Patient is on appropriate antibiotics. Patient will need this line removed as soon as coagulation is corrected. Patient will have a central line and temporary hemodialysis line placed emergently given difficulty with reaching next of kin. Patient did receive fluid boluses, but respiratory status is marginal, so will attempt to hold on further fluid resuscitation in an effort to help his respiratory status. Patient is on Midodrin at baseline. 2. Metabolic encephalopathy secondary to #1 Patient reportedly does have a 60% stenosis, but decreased mental status likely secondary to septic shock. We will continue to monitor hemodynamics. Likely okay to discontinue NIH evaluation as patient is not a candidate for TPA. Patient does appear to be controlling his airway at this time. May attempt BiPAP therapy, but this will be risky given his current mental status. 3. Coagulopathy secondary to Coumadin secondary to A. fib Patient will be completely reversed on INR secondary to acute status and need for interventions. Patient does have a stenosis noted on CTA, the risks of continued anticoagulation are too high. 4. End-stage renal disease on hemodialysis Patient is followed by [facility]. They have been contacted. Patient will likely need hemodialysis today as tolerated, given bank and then having old dialysis line removed to attempt clearance of bacteremia over the weekend. This will then need to be replaced early next week to allow hemodialysis. Patient's fistula is likely not functional from surgeon recommendations. 5. Uncontrolled diabetes mellitus Patient likely to have a high endogenous steroid release given patient's current status. Will cover with sliding scale insulin only. Patient will be n.p.o. secondary to #2. 6. Morbid obesity/peripheral artery disease/COPD/chronic diastolic CHF/history of osteomyelitis/secondary pulmonary hypertension Complicates care, management, recovery and prognosis. Patient can stay on aerosolized therapies for now. Do not believe patient will be able to tolerate volume removal in the acute setting, but may have an element of pulmonary edema leading to oxygenation issues. Patient does have a history of knee replacements, but is moving his legs frequently, so I doubt infected prosthesis at this time. TIME: 85 minutes critical care time spent addressing septic shock, metabolic encephalopathy, coagulopathy, review of all data and collaboration with care team. (7 AM to 10:15 AM) Code Visit Procedures: 50897 Critial Care Addl 30 Min 9xxxx: [id number] Critical care first hour
--- NOTE | 2019-02-19 08:43 | ECHOCS_ITS ---
Reason For Study: other, septic shock Procedure This was a 2D Doppler, Color Flow transthoracic echocardiogram. The study was technically difficult. Due to body habitus. Contrast injection was performed. Exam performed portable in ICU/CCU. Left Ventricle Normal LV size. Left ventricular systolic function is normal. The estimated ejection fraction is 65 %. Diastolic function is indeterminate. No regional wall motion abnormalities noted. Right Ventricle Severely dilated right ventricle. Moderate global right ventricular systolic dysfunction. Atria The left atrium is moderately enlarged. The right atrium is mildly enlarged. No doppler evidence for ASD. Mitral Valve There is moderate mitral annular calcification. Extension of the mitral annular calcification onto the mitral valve leaflets. Mild focal mitral valve calcification of the anterior leaflet. Trivial eccentric mitral valve insufficiency. Tricuspid Valve Normal tricuspid valve. Mild to moderate (1-2+) tricuspid valve insufficiency. Right ventricular systolic pressure estimated to be 53 mmHg. Aortic Valve Trisinus/trileaflet aortic valve. Mild diffuse aortic valve thickening. Moderate diffuse aortic valve calcification. Mild aortic stenosis. Pulmonic Valve The pulmonic valve is not well visualized. Great Vessels Normal sized aortic root. Calcified aortic root. Pericardium/Pleural No pericardial effusion. Medication Diluted definity 5.0ml given slow IV push to enhance endocardial definition. MMode/2D Measurements & Calculations LVIDd: 4.7 cm IVSd: 1.1 cm LVOT diam: 2.2 cm LVIDs: 2.8 cm LVPWd: 0.92 cm FS: 41.6 % LVOT area: 3.8 cm2 Ao root diam: 2.8 cm LAV(MOD-bp): 87.1 ml LA A4 area: 25.8 cm2 LAV(MOD-bp) Indexed: 36.2 ml/m2 LAV(MOD-sp2): 88.8 ml LAV(MOD-sp4): 88.4 ml LA dimension(2D): 4.2 cm RA A4 area: 24.4 cm2 Time Measurements MV dec time: 0.18 sec Doppler Measurements & Calculations MV E max juanito: 104.4 cm/sec Lat Peak E' Juanito: 15.1 cm/sec Med Peak E' Juanito: 8.0 cm/sec MV A max juanito: 96.6 cm/sec E/E' lat: 6.9 E/E' med: 13.1 MV E/A: 1.1 Ao V2 max: 248.9 cm/sec LV V1 max: 116.2 cm/sec SV(LVOT): 72.9 ml Ao max P.8 mmHg LV V1 max P.4 mmHg Ao V2 mean: 166.9 cm/sec LV V1 mean P.2 mmHg Ao mean P.5 mmHg LV V1 mean: 68.3 cm/sec Ao V2 VTI: 43.0 cm LV V1 VTI: 19.2 cm AVELINO(I,D): 1.7 cm2 AVELINO(V,D): 1.8 cm2 PA V2 max: 98.8 cm/sec TR max juanito: 336.7 cm/sec TR max P.3 mmHg Interpretation Summary The study was technically difficult. Contrast injection was performed. Left ventricular systolic function is normal. The estimated ejection fraction is 65 %. Severely dilated right ventricle. Moderate global right ventricular systolic dysfunction. The left atrium is moderately enlarged. The right atrium is mildly enlarged. There is moderate mitral annular calcification. Extension of the mitral annular calcification onto the mitral valve leaflets. Mild focal mitral valve calcification of the anterior leaflet. Trivial eccentric mitral valve insufficiency. Mild to moderate (1-2+) tricuspid valve insufficiency. Mild aortic stenosis. Calcified aortic root. Right ventricular systolic pressure estimated to be 53 mmHg. Diastolic function is indeterminate. Ordering Physician: Jenn Barney Referring Physician: Heraclio Whitehead Performed By: Emma Avalos, CRISTIANO, RVT
--- NOTE | 2019-02-19 09:15 | PCM.CONS.GEN ---
Reason for Consult Date of Consultation: 02/19/19 History of Present Illness: The patient is a 69 year old M bought to ER from [facility] due to change in MS/hypotension. Pt was hypotensive in ER and responded some to fluids. Pt was in septic shock from infected right tunnelled dialysis cath placed in August at [facility]. Pt has an LUE fistula which may be able to be used but would have to check with Dr. Royal. Pt is lethargic and unable to answer any questions. Bld cx +MRSA Past Medical History Past Medical History (Chronic Problems): Chronic Problems (Last Reviewed 02/19/19 @ 00:13 by Stew Aldrich MD) ESRD (end stage renal disease) on dialysis (Chronic) BPH (benign prostatic hyperplasia) (Chronic) Depression (Chronic) Hyperlipidemia (Chronic) IgA nephropathy (Chronic) Chronic gout (Chronic) Diabetes mellitus, type 2 (Chronic) DIET CONTROLLED Diastolic Dysfunction EF 60% (Chronic) KATHY on CPAP (Chronic) 16 CM WATER COPD (chronic obstructive pulmonary disease) (Chronic) With chronic respiratory failure On 3 L nasal cannula Left kidney mass (Chronic) Super obesity (Chronic) bmi 64 Chronic low back pain (Chronic) Pulmonary hypertension (Chronic) Paroxysmal atrial fibrillation (Chronic) Anemia of chronic renal failure (Chronic) Falls frequently (Chronic) Medical History: Medical History (Last Reviewed 02/19/19 @ 00:13 by Stew Aldrich MD) ESRD (end stage renal disease) on dialysis (Chronic) N18.6, Z99.2 Benign hypertension (Inactive) I10 BPH (benign prostatic hyperplasia) (Chronic) Depression (Chronic) F32.9 Hyperlipidemia (Chronic) E78.5 IgA nephropathy (Chronic) N02.8 Chronic gout (Chronic) M1A.9XX0 Diabetes mellitus, type 2 (Chronic) E11.9 DIET CONTROLLED Diastolic Dysfunction EF 60% (Chronic) COPD (chronic obstructive pulmonary disease) (Chronic) J44.9 With chronic respiratory failure On 3 L nasal cannula Left kidney mass (Chronic) N28.89 Chronic low back pain (Chronic) M54.5, G89.29 Pulmonary hypertension (Chronic) I27.2 Paroxysmal atrial fibrillation (Chronic) I48.0 Anemia of chronic renal failure (Chronic) N18.9, D63.1 Atrial fibrillation I48.91 Osteomyelitis (Inactive) M86.9 distal phalanx of the middle finger on the left hand Vertebral osteomyelitis, acute (Inactive) M46.20 12/22/14 24 hours no growth. 12/21/14 1/2 cultures w/ staph aureus. Suspected source vertebral osteomyelitis, unable to confirm as unable to obtain GOLD standard MRI secondary to habitus. Allergies mirtazapine [From Remeron] Allergy (Verified 02/18/19 18:52) forgetful, doesn't remember anything Sulfa (Sulfonamide Antibiotics) Allergy (Verified 02/18/19 18:52) bleeding from kidneys aspirin Adverse Reaction (Verified 02/18/19 18:52) Nausea oxycodone HCl [From Percodan] Adverse Reaction (Verified 02/18/19 18:52) Nausea oxycodone terephthalate [From Percodan] Adverse Reaction (Verified 02/18/19 18:52) Nausea Home Medications: Ambulatory Orders Medication Instructions Recorded Calcium Acetate [Phoslo Gel Cap] 1,334 mg PO BID 11/08/16 ferrous sulfate 325 mg (65 mg 325 mg PO BID tab 05/12/18 iron) tablet,delayed release umeclidinium 62.5 mcg/actuation 1 inh INHALATION LUNCH 05/12/18 blister powder for inhalation B Complex W-C No.20/Folic Acid 1 mg PO DAILY@1200 08/18/18 [Virt-Caps Softgel] Docusate Sodium [Colace] 200 mg PO BID 08/18/18 Escitalopram Oxalate [Lexapro] 10 mg PO DAILY 08/18/18 Fluticasone/Vilanterol [Breo 1 ea IH DAILY 08/18/18 Ellipta 100-25 Mcg INH] Gabapentin [Neurontin] 300 mg PO BID 08/18/18 Pantoprazole Sodium [Protonix] 40 mg PO DAILY 08/18/18 Midodrine HCl 10 mg PO BID #60 tab 01/08/19 Acetaminophen [Tylenol] 650 mg PO Q4H PRN PRN 02/18/19 Ascorbic Acid 500 mg PO DAILY 02/18/19 Ipratropium/Albuterol Sulfate 3 ml INHALATION Q6H.RT 02/18/19 [Duoneb] Multivit,Tx with Iron,Minerals 1 tab PO DAILY 02/18/19 [Thera-M] Ondansetron HCl 8 mg PO BID PRN PRN 12/12/19 Warfarin Sodium 3 mg PO TU 02/18/19 Surgical History: Surgical History (Last Reviewed 02/19/19 @ 00:13 by Stew Aldrich MD) History of arteriovenostomy for renal dialysis Z99.2 History of cholecystectomy Z90.49 History of colonoscopy Z98.890 History of total bilateral knee replacement Z96.653 Status post biopsy of kidney Z98.890 Surgical History: colectomy, total knee arthroplasty, - Psychiatric History: No pertinent psych hx 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 Smoking Status: Former smoker - *Family History Maternal History Items: COPD, Diabetes, Heart Disease, Hypertension - He, Pulmonary Disease, Renal Disease Paternal History Items: No pertinent history Review of Systems Unable to obtain accurate/complete ROS d/t: pt is lethargic Patient Problems: Active and Suspected Problems (Last Reviewed 02/19/19 @ 00:13 by Stew Aldrich MD) Septic shock (Acute) - Physical Exam Vitals/I&O's: Vital Signs Temp Pulse Resp BP Pulse Ox 101.9 F H 101 H 18 98/40 L 99 02/19/19 08:00 02/19/19 08:00 02/19/19 08:00 02/19/19 08:00 02/19/19 08:00 Oxygen Flow Rate (L/min) 4 Oxygen Delivery Method Nasal Cannula Weight: 310 lb 13.628 oz Body Mass Index (BMI) 50.1 Finger Stick Blood Glucose 145 Intake and Output for Last 24 Hours 02/17/19 02/18/19 02/19/19 23:59 23:59 23:59 Intake Total 2099 702.75 / 702.75 Output Total Balance 2099 701.75 / 701.75 General: Lethargic Neck: - - right tunnelled dialysis IJ catheter + purulent drainage Cardiovascular: Regular rate Abdomen: Soft, Non-Distended, Obese Extremities: Cool - chronic venous stasis in legs, multiple fingers/toes amputated Skin: - Neurological: - - unable to test Microbiology Past 72 Hours 02/18/19 18:55 Blood Culture (Wb) - Venous Blood Culture - Preliminary 02/18/19 18:55 Blood Culture (Wb) - Venous Blood Culture - Preliminary 02/18/19 19:55 Mucosa - Nasopharyngeal Influenza Types A,B Direct FA (FILIBERTO) - Final Laboratory Results 02/18/19 18:55: WBC 22.5 H, RBC 4.41 L, Hgb 13.0, Hct 42.2, MCV 95.7 H, MCH 29.5, MCHC 30.8 L, RDW Std Deviation 60.4 H, RDW Coeff of Dixie 17.2 H, Plt Count 131 L, MPV 11.4, Immature Gran % (Auto) 0.900, Neut % (Auto) 95.3 H, Lymph % (Auto) 0.7 L, [place] % (Auto) 3.0, Eos % (Auto) 0.0, Baso % (Auto) 0.1, Absolute Neuts (auto) 21.4 H, Absolute Lymphs (auto) 0.15 L, Nucleated RBC % 0, Differential Comment SCANNED 02/18/19 18:55: PT 35.6 H, INR 3.5 H*, APTT 61.8 H 02/18/19 18:55: Sodium 135 L, Potassium 4.4, Chloride 98, Carbon Dioxide 28.0, Anion Gap 9, BUN 60 H, Creatinine 5.53 H, Estim Creat Clear Calc 13.02, Est GFR (MDRD) Af Amer 13 L, Est GFR (MDRD) Non-Af 11 L, BUN/Creatinine Ratio 10.8, Glucose 161 H, Calcium 9.3, Total Bilirubin 0.70, AST 20, ALT 18, Alkaline Phosphatase 138 H, Total Protein 7.0, Albumin 2.9 L, Globulin 4.1, Albumin/Globulin Ratio 0.7 L 02/18/19 18:55: Lactic Acid 3.2 H* 02/19/19 00:27: Lactic Acid 2.3 H* 02/19/19 03:35: WBC 17.1 H, RBC 4.11 L, Hgb 12.1 L, Hct 39.8 L, MCV 96.8 H, MCH 29.4, MCHC 30.4 L, RDW Std Deviation 61.5 H, RDW Coeff of [place] 17.2 H, Plt Count 107 L, MPV 11.8, Immature Gran % (Auto) 1.000 H, Neut % (Auto) 94.5 H, Lymph % (Auto) 0.8 L, [place] % (Auto) 3.0, Eos % (Auto) 0.5, Baso % (Auto) 0.2, Absolute Neuts (auto) 16.2 H, Absolute Lymphs (auto) 0.14 L, Nucleated RBC % 0.1, Differential Comment SCANNED 02/19/19 03:35: PT 39.8 H, INR 4.1 H* 02/19/19 03:35: Sodium 135 L, Potassium 5.4 H, Chloride 100, Carbon Dioxide 28.0, Anion Gap 7, BUN 66 H, Creatinine 5.86 H, Estim Creat Clear Calc 10.74, Est GFR (MDRD) Af Amer 12 L, Est GFR (MDRD) Non-Af 10 L, BUN/Creatinine Ratio 11.3, Glucose 155 H, Calcium 8.3 L 02/19/19 03:35: Lactic Acid 2.1 H* 02/19/19 03:49: POC Glucose 145 H 02/19/19 08:30: Blood Type TNP 02/19/19 08:30: Blood Type A POSITIVE Current Medications Acetaminophen (Tylenol) 650 mg RECTAL Q4H PRN PRN PRN Reason: Pain Score 1-10/Temp > 100.7 F Last Admin: 02/19/19 06:30 Dose: 650 mg Documented by: Albuterol/Ipratropium (Duoneb) 3 ml INHALATION Q6H.RT [facility] Last Admin: 02/19/19 06:39 Dose: 3 ml Documented by: Bisacodyl (Dulcolax) 5 mg PO DAILY PRN PRN PRN Reason: Constipation Budesonide (Pulmicort Aerosol) 0.5 mg INHALATION Q12H.RT [facility] Last Admin: 02/19/19 06:39 Dose: 0.5 mg Documented by: Glucagon () 1 mg IM .X1 PRN PRN Reason: Hypoglycemia Heparin Sodium (Porcine) () 2,500 units IV UD PRN PRN Reason: Dialysis Cath Heparin Flush Piperacillin Sod/Tazobactam (Sod 3.375 gm/ Sodium Chloride) 50 mls @ 12.5 mls/hr IV Q12 [place] Pantoprazole Sodium 40 mg/ (Sodium Chloride) 110 mls @ 330 mls/hr IV Q24 [facility] Last Infusion: 02/19/19 02:01 Dose: Infused Documented by: Vancomycin IV Pharmacy to Dose (1,500 ea/ Sodium Chloride) 500 mls @ 250 mls/hr IV PRN PRN; Protocol Dextrose (Dextrose 10%-Water) 250 mls @ 999 mls/hr IV X1 PRN; Protocol PRN Reason: HYPOGLYCEMIA Sodium Chloride () 250 mls @ 15 mls/hr IV .[id number] PRN PRN Reason: Saline Flush Phytonadione 5 mg/ Sodium (Chloride) 50.5 mls @ 150 mls/hr IV X1 ONE Stop: 02/19/19 09:20 Norepinephrine Bitartrate 8 mg (/ Sodium Chloride) 250 mls @ 9.375 mls/hr CONT INF .[id number] [place]; Protocol Ondansetron HCl (Zofran) 4 mg IV Q8H PRN PRN PRN Reason: NAUSEA/VOMITING Sodium Chloride () 10 ml IV UD PRN PRN Reason: Dialysis Catheter Flush Sodium Chloride () 10 - 40 ml IV UD PRN PRN Reason: SALINE FLUSH Assessment/Plan All Active Problems (Last Reviewed 02/19/19 @ 00:13 by Stew Aldrich MD) Septic shock (Acute) 69-year-old male with septic shock, positive blood culture, end-stage renal disease with tunneled right IJ dialysis catheter, left arm fistula not ready for use currently, supratherapeutic INR 1. Patient is scheduled to get FFP, due to the hypotension ICU is planning to put left IJ triple-lumen catheter in. 2. We will see if patient is stable enough to get dialysis today through his line and plan to remove the tunneled right IJ dialysis catheter when his is corrected as it is 4.1 currently 2 of FFP ready to transfuse, we will plan to culture the tip Saige Bennett M.D. Pager: [phone] [facility] [address] [place] [address], Outpatient Pavilion, [address] [place] [address] Office: [phone] Code Visit Inpatient E&M: 06961 Init Hosp L2
--- NOTE | 2019-02-19 09:57 | CASEMGMT ---
Addendum entered by Yaritza Pantoja 02/19/19 10:31: CLARA faxed updates to [facility]. REYNA Kirk Original Note: Pt is here from [facility]. SW reviewed the old chart, SW spoke to pt in December about changing POA, as pt has Carmelina Mac listed as POA who is his ex-'s sister. Sharon Mac who is listed second has and Get Mac who is listed third is in [place]. At that time pt wanted to change POA to his sister Chantale Gorman but wanted to speak w/her first, so was going [facility] the [facility]; SW sent pt back w/POA forms and had let [facility] know. We do not have any updated POA papers at this time. SW called [facility], message left fro Roslyn. SW called the Dialysis Center, they have no POA forms on file. SW called [facility] back and spoke w/nurse Lisbeth. They do not have any updated POA forms on file, and Lsibeth states that daughter Yanni is the main contact for [facility], SW verified that her phone number is [phone]. Yanni states daughter has a weird work schedule. Lisbeth states that they do not have a working number for pt's sister. SW called Carmelina Mac, the mailbox if full so no message could be left, and the message for the number is generic, no name in message. SW called Get [employer], the phone number is out of order. SW called sister Chantale Gorman, the number is not working. The RN had called the daughter already this morning and left a message for her. SW updated RN that all other family members were called and nobody could be reached due to voicemail full or numbers out of order. SW let her know that the [facility]'s main contact is daughter Yanni as well. SW will continue to follow and remains available for any other social service needs. REYNA Kirk
--- NOTE | 2019-02-19 10:30 | CASEMGMT ---
POA and last will and testament in echart. However, the individuals on the POA form are not reachable, Carmelina's voicemail is nondescript and is full, and Don's number is out of order. Sharon has . Pt has sister and daughter listed on demographics. Sister Chantale's number is out of order, RN left a message for daughter. REYNA Kirk
--- NOTE | 2019-02-19 11:27 | CON.PCM_ITS ---
Reason for Consult Date of Consultation: 02/19/19 Reason for Consultation: esrd History of Present Illness: The patient is a 69 year old M with past medical history of end-stage renal disease who is a shelter resident and presented with a chief complaint of choking on applesauce and fever of 103 Fahrenheit. Apparently he has been less interactive in the shelter per chart. The patient is confused alert awake but does not answer any questions. He was found to be severely hypotensive with initial blood pressure of 57/34. His temperature in the emergency department was 102.8 Fahrenheit. He was also found to have leukocytosis. Review of systems is not obtainable as the patient is confused and does not answer questions Past Medical History Past Medical History (Chronic Problems): Chronic Problems (Last Reviewed 02/19/19 @ 00:13 by Stew Aldrich MD) ESRD (end stage renal disease) on dialysis (Chronic) BPH (benign prostatic hyperplasia) (Chronic) Depression (Chronic) Hyperlipidemia (Chronic) IgA nephropathy (Chronic) Chronic gout (Chronic) Diabetes mellitus, type 2 (Chronic) DIET CONTROLLED Diastolic Dysfunction EF 60% (Chronic) KATHY on CPAP (Chronic) 16 CM WATER COPD (chronic obstructive pulmonary disease) (Chronic) With chronic respiratory failure On 3 L nasal cannula Left kidney mass (Chronic) Super obesity (Chronic) bmi 64 Chronic low back pain (Chronic) Pulmonary hypertension (Chronic) Paroxysmal atrial fibrillation (Chronic) Anemia of chronic renal failure (Chronic) Falls frequently (Chronic) Medical History: Medical History (Last Reviewed 02/19/19 @ 00:13 by Stew Aldrich MD) ESRD (end stage renal disease) on dialysis (Chronic) N18.6, Z99.2 Benign hypertension (Inactive) I10 BPH (benign prostatic hyperplasia) (Chronic) Depression (Chronic) F32.9 Hyperlipidemia (Chronic) E78.5 IgA nephropathy (Chronic) N02.8 Chronic gout (Chronic) M1A.9XX0 Diabetes mellitus, type 2 (Chronic) E11.9 DIET CONTROLLED Diastolic Dysfunction EF 60% (Chronic) COPD (chronic obstructive pulmonary disease) (Chronic) J44.9 With chronic respiratory failure On 3 L nasal cannula Left kidney mass (Chronic) N28.89 Chronic low back pain (Chronic) M54.5, G89.29 Pulmonary hypertension (Chronic) I27.2 Paroxysmal atrial fibrillation (Chronic) I48.0 Anemia of chronic renal failure (Chronic) N18.9, D63.1 Atrial fibrillation I48.91 Osteomyelitis (Inactive) M86.9 distal phalanx of the middle finger on the left hand Vertebral osteomyelitis, acute (Inactive) M46.20 12/22/14 24 hours no growth. 12/21/14 1/2 cultures w/ staph aureus. Suspected source vertebral osteomyelitis, unable to confirm as unable to obtain GOLD standard MRI secondary to habitus. Allergies mirtazapine [From Remeron] Allergy (Verified 02/18/19 18:52) forgetful, doesn't remember anything Sulfa (Sulfonamide Antibiotics) Allergy (Verified 02/18/19 18:52) bleeding from kidneys aspirin Adverse Reaction (Verified 02/18/19 18:52) Nausea oxycodone HCl [From Percodan] Adverse Reaction (Verified 02/18/19 18:52) Nausea oxycodone terephthalate [From Percodan] Adverse Reaction (Verified 02/18/19 18:52) Nausea Home Medications: Ambulatory Orders Medication Instructions Recorded Calcium Acetate [Phoslo Gel Cap] 1,334 mg PO BID 11/08/16 ferrous sulfate 325 mg (65 mg 325 mg PO BID tab 05/12/18 iron) tablet,delayed release umeclidinium 62.5 mcg/actuation 1 inh INHALATION LUNCH 05/12/18 blister powder for inhalation B Complex W-C No.20/Folic Acid 1 mg PO DAILY@1200 08/18/18 [Virt-Caps Softgel] Docusate Sodium [Colace] 200 mg PO BID 08/18/18 Escitalopram Oxalate [Lexapro] 10 mg PO DAILY 08/18/18 Fluticasone/Vilanterol [Breo 1 ea IH DAILY 08/18/18 Ellipta 100-25 Mcg INH] Gabapentin [Neurontin] 300 mg PO BID 08/18/18 Pantoprazole Sodium [Protonix] 40 mg PO DAILY 08/18/18 Midodrine HCl 10 mg PO BID #60 tab 01/08/19 Acetaminophen [Tylenol] 650 mg PO Q4H PRN PRN 02/18/19 Ascorbic Acid 500 mg PO DAILY 02/18/19 Ipratropium/Albuterol Sulfate 3 ml INHALATION Q6H.RT 02/18/19 [Duoneb] Multivit,Tx with Iron,Minerals 1 tab PO DAILY 12/12/19 [Thera-M] Ondansetron HCl 8 mg PO BID PRN PRN 02/18/19 Warfarin Sodium 3 mg PO TU 02/18/19 Surgical History: Surgical History (Last Reviewed 02/19/19 @ 00:13 by Stew Aldrich MD) History of arteriovenostomy for renal dialysis Z99.2 History of cholecystectomy Z90.49 History of colonoscopy Z98.890 History of total bilateral knee replacement Z96.653 Status post biopsy of kidney Z98.890 Surgical History: colectomy, total knee arthroplasty, - Psychiatric History: No pertinent psych hx Lives: Longterm Smoking Status: Former smoker - *Family History Maternal History Items: COPD, Diabetes, Heart Disease, Hypertension - He, Pulmonary Disease, Renal Disease Paternal History Items: No pertinent history Patient Problems: Active and Suspected Problems (Last Reviewed 02/19/19 @ 00:13 by Stew Aldrich MD) Septic shock (Acute) - Physical Exam Vitals/I&O's: Vital Signs Temp Pulse Resp BP Pulse Ox 100.9 F H 103 H 14 128/81 H 95 02/19/19 11:23 02/19/19 11:23 02/19/19 11:23 02/19/19 11:23 02/19/19 11:09 Oxygen Flow Rate (L/min) 4 Oxygen Delivery Method Nasal Cannula Weight: 141 kg Body Mass Index (BMI) 50.1 Finger Stick Blood Glucose 145 Intake and Output for Last 24 Hours 02/17/19 02/18/19 02/19/19 23:59 23:59 23:59 Intake Total 2099 998.86 / 998.86 Output Total Balance 2099 997.86 / 997.86 General: Alert, Confused HEENT: Atraumatic, PERRLA, Normocephalic Neck: Supple, No JVD, Negative Carotid Bruits, - - IJ tunneled dialysis catheter Lungs: Clear to auscultation, Normal air movement Cardiovascular: Regular rate, No murmurs Abdomen: Bowel Sounds Present, Soft, Non Tender, Obese Extremities: No edema, Capillary Refill Less than 3 Seconds Skin: No rashes, No breakdown Musculoskeletal: No Tenderness to Palpation of Joints or Extremities Psych/Mental Status: Normal Affect, Appropriate Microbiology Past 72 Hours 02/18/19 18:55 Blood Culture (Wb) - Venous Bacteria Detection (PCR) - Final Meth. resistant Staph. aureus 02/18/19 18:55 Blood Culture (Wb) - Venous Blood Culture - Preliminary 02/18/19 18:55 Blood Culture (Wb) - Venous Blood Culture - Preliminary 02/18/19 19:55 Mucosa - Nasopharyngeal Influenza Types A,B Direct FA (FILIBERTO) - Final Laboratory Results 02/18/19 18:55: WBC 22.5 H, RBC 4.41 L, Hgb 13.0, Hct 42.2, MCV 95.7 H, MCH 29.5, MCHC 30.8 L, RDW Std Deviation 60.4 H, RDW Coeff of Dixie 17.2 H, Plt Count 131 L, MPV 11.4, Immature Gran % (Auto) 0.900, Neut % (Auto) 95.3 H, Lymph % (Auto) 0.7 L, [place] % (Auto) 3.0, Eos % (Auto) 0.0, Baso % (Auto) 0.1, Absolute Neuts (auto) 21.4 H, Absolute Lymphs (auto) 0.15 L, Nucleated RBC % 0, Differential Comment SCANNED 02/18/19 18:55: PT 35.6 H, INR 3.5 H*, APTT 61.8 H 02/18/19 18:55: Sodium 135 L, Potassium 4.4, Chloride 98, Carbon Dioxide 28.0, Anion Gap 9, BUN 60 H, Creatinine 5.53 H, Estim Creat Clear Calc 13.02, Est GFR (MDRD) Af Amer 13 L, Est GFR (MDRD) Non-Af 11 L, BUN/Creatinine Ratio 10.8, Glucose 161 H, Calcium 9.3, Total Bilirubin 0.70, AST 20, ALT 18, Alkaline Phosphatase 138 H, Total Protein 7.0, Albumin 2.9 L, Globulin 4.1, Albumin/Globulin Ratio 0.7 L 02/18/19 18:55: Lactic Acid 3.2 H* 02/19/19 00:27: Lactic Acid 2.3 H* 02/19/19 03:35: WBC 17.1 H, RBC 4.11 L, Hgb 12.1 L, Hct 39.8 L, MCV 96.8 H, MCH 29.4, MCHC 30.4 L, RDW Std Deviation 61.5 H, RDW Coeff of [place] 17.2 H, Plt Count 107 L, MPV 11.8, Immature Gran % (Auto) 1.000 H, Neut % (Auto) 94.5 H, Lymph % (Auto) 0.8 L, [place] % (Auto) 3.0, Eos % (Auto) 0.5, Baso % (Auto) 0.2, Absolute Neuts (auto) 16.2 H, Absolute Lymphs (auto) 0.14 L, Nucleated RBC % 0.1, Differential Comment SCANNED 02/19/19 03:35: PT 39.8 H, INR 4.1 H* 02/19/19 03:35: Sodium 135 L, Potassium 5.4 H, Chloride 100, Carbon Dioxide 28.0, Anion Gap 7, BUN 66 H, Creatinine 5.86 H, Estim Creat Clear Calc 10.74, Est GFR (MDRD) Af Amer 12 L, Est GFR (MDRD) Non-Af 10 L, BUN/Creatinine Ratio 11.3, Glucose 155 H, Calcium 8.3 L 02/19/19 03:35: Lactic Acid 2.1 H* 02/19/19 03:49: POC Glucose 145 H 02/19/19 08:30: Blood Type TNP 02/19/19 08:30: Blood Type A POSITIVE Current Medications Acetaminophen (Tylenol) 650 mg RECTAL Q4H PRN PRN PRN Reason: Pain Score 1-10/Temp > 100.7 F Last Admin: 02/19/19 06:30 Dose: 650 mg Documented by: Albuterol/Ipratropium (Duoneb) 3 ml INHALATION Q6H.RT [facility] Last Admin: 02/19/19 06:39 Dose: 3 ml Documented by: Bisacodyl (Dulcolax) 5 mg PO DAILY PRN PRN PRN Reason: Constipation Budesonide (Pulmicort Aerosol) 0.5 mg INHALATION Q12H.RT [facility] Last Admin: 02/19/19 06:39 Dose: 0.5 mg Documented by: Glucagon () 1 mg IM .X1 PRN PRN Reason: Hypoglycemia Heparin Sodium (Porcine) () 2,500 units IV UD PRN PRN Reason: Dialysis Cath Heparin Flush Piperacillin Sod/Tazobactam (Sod 3.375 gm/ Sodium Chloride) 50 mls @ 12.5 mls/hr IV Q12 [place] Pantoprazole Sodium 40 mg/ (Sodium Chloride) 110 mls @ 330 mls/hr IV Q24 [place] Last Infusion: 02/19/19 02:01 Dose: Infused Documented by: Vancomycin IV Pharmacy to Dose (1,500 ea/ Sodium Chloride) 500 mls @ 250 mls/hr IV PRN PRN; Protocol Dextrose (Dextrose 10%-Water) 250 mls @ 999 mls/hr IV X1 PRN; Protocol PRN Reason: HYPOGLYCEMIA Sodium Chloride () 250 mls @ 15 mls/hr IV .[id number] PRN PRN Reason: Saline Flush Norepinephrine Bitartrate 8 mg (/ Sodium Chloride) 250 mls @ 9.375 mls/hr CONT INF .[id number] [place]; Protocol Last Titration: 02/19/19 11:23 Dose: 15 mcg/min, 28.1 mls/hr Documented by: Ondansetron HCl (Zofran) 4 mg IV Q8H PRN PRN PRN Reason: NAUSEA/VOMITING Sodium Chloride () 10 ml IV UD PRN PRN Reason: Dialysis Catheter Flush Sodium Chloride () 10 - 40 ml IV UD PRN PRN Reason: SALINE FLUSH Assessment/Plan All Active Problems (Last Reviewed 02/19/19 @ 00:13 by Stew Aldrich MD) Septic shock (Acute) ESRD Anemia CKD MBD Septic shock Pulmonary edema Appreciate all physicians input. The line will be removed after dialysis today. Awaiting infectious disease recommendations for antibiotics. As the fistula is not ready to use per surgery will need new line placed on Friday. Continue Friday dialysis. 2K bath and UF 2 to 3 L today considering pulmonary edema on chest x-ray. On pressors keep MEP more than 65. d/w dr. Riggins and RN and HD RN. Thanks for consult. We will follow-up.
--- NOTE | 2019-02-19 11:34 | CASEMGMT ---
SW spoke w/Roslyn at [facility], she confirmed with the SW that the pt did not update his POA forms. Roslyn is not at [facility] at present but when she returns will look through is cell phone to see if there are any other numbers for family. She will call ICU directly if this SW is not here. Also, pt would not need precert to return to [facility], can return when able. REYNA Kirk
--- NOTE | 2019-02-19 13:58 | PCM.HP.ID ---
Problem List (1) Septic shock Status: Acute Reason for Consult: bacteremia Consulted by: Dr. Barney History of Present Illness: The patient is a 69 year old M with ESRD, presented with confusion, fever, hypotension from ECF. Had acute onset of symptoms. Gets HD via R chest permacath, also with LUE fistula that is maturing. In ED, fever to 102.8, BP 57/34. Admitted on icu on pressors, vanc, and zosyn. HD today then permacath removal planned. ROS unobtainable due to mental status. Pt unable to provide history. - Medical History Past Medical History (Chronic Problems): Chronic Problems (Last Reviewed 02/19/19 @ 00:13 by Stew Aldrich MD) ESRD (end stage renal disease) on dialysis (Chronic) BPH (benign prostatic hyperplasia) (Chronic) Depression (Chronic) Hyperlipidemia (Chronic) IgA nephropathy (Chronic) Chronic gout (Chronic) Diabetes mellitus, type 2 (Chronic) DIET CONTROLLED Diastolic Dysfunction EF 60% (Chronic) KATHY on CPAP (Chronic) 16 CM WATER COPD (chronic obstructive pulmonary disease) (Chronic) With chronic respiratory failure On 3 L nasal cannula Left kidney mass (Chronic) Super obesity (Chronic) bmi 64 Chronic low back pain (Chronic) Pulmonary hypertension (Chronic) Paroxysmal atrial fibrillation (Chronic) Anemia of chronic renal failure (Chronic) Falls frequently (Chronic) Allergies/Adverse Reactions: Allergies mirtazapine [From Remeron] Allergy (Verified 02/18/19 18:52) forgetful, doesn't remember anything Sulfa (Sulfonamide Antibiotics) Allergy (Verified 02/18/19 18:52) bleeding from kidneys aspirin Adverse Reaction (Verified 02/18/19 18:52) Nausea oxycodone HCl [From Percodan] Adverse Reaction (Verified 02/18/19 18:52) Nausea oxycodone terephthalate [From Percodan] Adverse Reaction (Verified 02/18/19 18:52) Nausea Home Medications: Ambulatory Orders Medication Instructions Recorded Calcium Acetate [Phoslo Gel Cap] 1,334 mg PO BID 11/08/16 ferrous sulfate 325 mg (65 mg 325 mg PO BID tab 05/12/18 iron) tablet,delayed release umeclidinium 62.5 mcg/actuation 1 inh INHALATION LUNCH 05/12/18 blister powder for inhalation B Complex W-C No.20/Folic Acid 1 mg PO DAILY@1200 08/18/18 [Virt-Caps Softgel] Docusate Sodium [Colace] 200 mg PO BID 08/18/18 Escitalopram Oxalate [Lexapro] 10 mg PO DAILY 08/18/18 Fluticasone/Vilanterol [Breo 1 ea IH DAILY 08/18/18 Ellipta 100-25 Mcg INH] Gabapentin [Neurontin] 300 mg PO BID 08/18/18 Pantoprazole Sodium [Protonix] 40 mg PO DAILY 08/18/18 Midodrine HCl 10 mg PO BID #60 tab 01/08/19 Acetaminophen [Tylenol] 650 mg PO Q4H PRN PRN 02/18/19 Ascorbic Acid 500 mg PO DAILY 02/18/19 Ipratropium/Albuterol Sulfate 3 ml INHALATION Q6H.RT 02/18/19 [Duoneb] Multivit,Tx with Iron,Minerals 1 tab PO DAILY 02/18/19 [Thera-M] Ondansetron HCl 8 mg PO BID PRN PRN 02/18/19 Warfarin Sodium 3 mg PO TU 02/18/19 - Social History SMOKING STATUS:: Never smoker Vital Signs Temp Pulse Resp BP Pulse Ox 101.1 F H 104 H 22 H 134/73 H 94 02/19/19 12:00 02/19/19 12:00 02/19/19 12:00 02/19/19 12:00 02/19/19 12:00 Oxygen Flow Rate (L/min) 4 Oxygen Delivery Method Nasal Cannula Weight: 141 kg Body Mass Index (BMI) 50.1 Finger Stick Blood Glucose 145 Microbiology Past 72 Hours 02/18/19 18:55 Bacteria Detection (PCR) - Final Blood Culture (Wb) - Venous Meth. resistant Staph. aureus Blood Culture - Preliminary 02/18/19 18:55 Blood Culture - Preliminary Blood Culture (Wb) - Venous 02/18/19 19:55 Influenza Types A,B Direct FA (FILIBERTO) - Final Mucosa - Nasopharyngeal Laboratory Tests Past 24 Hrs 02/18/19 02/18/19 02/18/19 18:55 18:55 18:55 WBC 22.5 H RBC 4.41 L Hgb 13.0 Hct 42.2 MCV 95.7 H MCH 29.5 MCHC 30.8 L RDW Std Deviation 60.4 H RDW Coeff of [place] 17.2 H Plt Count 131 L MPV 11.4 Immature Gran % (Auto) 0.900 Neut % (Auto) 95.3 H Lymph % (Auto) 0.7 L [place] % (Auto) 3.0 Eos % (Auto) 0.0 Baso % (Auto) 0.1 Absolute Neuts (auto) 21.4 H Absolute Lymphs (auto) 0.15 L Nucleated RBC % 0 Differential Comment SCANNED PT 35.6 H INR 3.5 H* APTT 61.8 H Sodium 135 L Potassium 4.4 Chloride 98 Carbon Dioxide 28.0 Anion Gap 9 BUN 60 H Creatinine 5.53 H Estim Creat Clear Calc 13.02 Est GFR (MDRD) Af Amer 13 L Est GFR (MDRD) Non-Af 11 L BUN/Creatinine Ratio 10.8 Glucose 161 H Lactic Acid Calcium 9.3 Total Bilirubin 0.70 AST 20 ALT 18 Alkaline Phosphatase 138 H Total Protein 7.0 Albumin 2.9 L Globulin 4.1 Albumin/Globulin Ratio 0.7 L Blood Type 02/18/19 02/19/19 02/19/19 18:55 00:27 03:35 WBC 17.1 H RBC 4.11 L Hgb 12.1 L Hct 39.8 L MCV 96.8 H MCH 29.4 MCHC 30.4 L RDW Std Deviation 61.5 H RDW Coeff of [place] 17.2 H Plt Count 107 L MPV 11.8 Immature Gran % (Auto) 1.000 H Neut % (Auto) 94.5 H Lymph % (Auto) 0.8 L [place] % (Auto) 3.0 Eos % (Auto) 0.5 Baso % (Auto) 0.2 Absolute Neuts (auto) 16.2 H Absolute Lymphs (auto) 0.14 L Nucleated RBC % 0.1 Differential Comment SCANNED PT INR APTT Sodium Potassium Chloride Carbon Dioxide Anion Gap BUN Creatinine Estim Creat Clear Calc Est GFR (MDRD) Af Amer Est GFR (MDRD) Non-Af BUN/Creatinine Ratio Glucose Lactic Acid 3.2 H* 2.3 H* Calcium Total Bilirubin AST ALT Alkaline Phosphatase Total Protein Albumin Globulin Albumin/Globulin Ratio Blood Type 02/19/19 02/19/19 02/19/19 03:35 03:35 03:35 WBC RBC Hgb Hct MCV MCH MCHC RDW Std Deviation RDW Coeff of [place] Plt Count MPV Immature Gran % (Auto) Neut % (Auto) Lymph % (Auto) [place] % (Auto) Eos % (Auto) Baso % (Auto) Absolute Neuts (auto) Absolute Lymphs (auto) Nucleated RBC % Differential Comment PT 39.8 H INR 4.1 H* APTT Sodium 135 L Potassium 5.4 H Chloride 100 Carbon Dioxide 28.0 Anion Gap 7 BUN 66 H Creatinine 5.86 H Estim Creat Clear Calc 10.74 Est GFR (MDRD) Af Amer 12 L Est GFR (MDRD) Non-Af 10 L BUN/Creatinine Ratio 11.3 Glucose 155 H Lactic Acid 2.1 H* Calcium 8.3 L Total Bilirubin AST ALT Alkaline Phosphatase Total Protein Albumin Globulin Albumin/Globulin Ratio Blood Type 02/19/19 02/19/19 08:30 08:30 WBC RBC Hgb Hct MCV MCH MCHC RDW Std Deviation RDW Coeff of [place] Plt Count MPV Immature Gran % (Auto) Neut % (Auto) Lymph % (Auto) [place] % (Auto) Eos % (Auto) Baso % (Auto) Absolute Neuts (auto) Absolute Lymphs (auto) Nucleated RBC % Differential Comment PT INR APTT Sodium Potassium Chloride Carbon Dioxide Anion Gap BUN Creatinine Estim Creat Clear Calc Est GFR (MDRD) Af Amer Est GFR (MDRD) Non-Af BUN/Creatinine Ratio Glucose Lactic Acid Calcium Total Bilirubin AST ALT Alkaline Phosphatase Total Protein Albumin Globulin Albumin/Globulin Ratio Blood Type TNP A POSITIVE - Other Studies Radiology: [] reviewed Other Studies: [] Route of nutrition/ use of supplements: [] Nutritional Intake: [] IV Site: [] [place]ham Catheter: [] - Physical Exam General: Non-Cooperative HEENT: Atraumatic, PERRLA Neck: Supple, No Nodes Lungs: Clear to auscultation - diminished Cardiovascular: Murmur, Tachycardic Abdomen: Soft, Non Tender, Non-Distended, Obese Extremities: Edema Skin: - - multiple partial amputations of fingers/toes. Onychomycosis on toes. No splinter hemorrhages seen. IV Site: - - R chest permacath, no redness or swelling. LUE fistula no sign of inflammation Musculoskeletal: - - mild warmth of L knee compared to R. No apparent pain with palpation/movement Neurological: - - obtunded - Assessment/Plan Antibiotics: [] Assessment/Plan: [] Active and Suspected Problems (Last Reviewed 02/19/19 @ 00:13 by Stew Aldrich MD) Septic shock (Acute) Septic shock due to MRSA - concern for skin vs HD access as source. Line to be removed today. Echo pending. Will order repeat bcxs. If no other organisms grow, ok to stop zosyn in next 1-2 days. Cont vanc. Lactate and wbc improved, remain elevated. Critically ill. Will follow, thank you, d/w nursing.
--- NOTE | 2019-02-19 14:28 | PCM.RX.CS ---
Consult Pharmacy has been consulted to manage selected antiobiotic: Vancomycin Type of Consult: Follow-up Suspected Infection: Bacteremia Prior Doses of Antibiotics Received/Current Regimen: VANCOMYCIN 1500MG IV X1 IN ED 02/18/19 @2307 Labs: Sodium 135 mmol/L (136-145) L 02/19/19 03:35 Potassium 5.4 mmol/L (3.5-5.1) H 02/19/19 03:35 Chloride 100 mmol/L (98-107) 02/19/19 03:35 Carbon Dioxide 28.0 mmol/L (21.0-32.0) 02/19/19 03:35 Anion Gap 7 (5-15) 02/19/19 03:35 BUN 66 mg/dL (7-18) H 02/19/19 03:35 Creatinine 5.86 mg/dL (0.70-1.30) H 02/19/19 03:35 Est GFR (MDRD) Af Amer 12 mL/min (>60) L 02/19/19 03:35 Est GFR (MDRD) Non-Af 10 mL/min (>60) L 02/19/19 03:35 BUN/Creatinine Ratio 11.3 RATIO (10-20) 02/19/19 03:35 Glucose 155 mg/dL (74-106) H 02/19/19 03:35 Microbiology: Microbiology 02/18/19 18:55 Blood Culture (Wb) - Venous Bacteria Detection (PCR) - Final Meth. resistant Staph. aureus 02/18/19 18:55 Blood Culture (Wb) - Venous Blood Culture - Preliminary 02/18/19 18:55 Blood Culture (Wb) - Venous Blood Culture - Preliminary 02/18/19 19:55 Mucosa - Nasopharyngeal Influenza Types A,B Direct FA (FILIBERTO) - Final Goal Trough: 15-20 mcg/mL Pharmacy Plan for Drug Dosing: Pharmacy to manage vancomycin per consult. Patient is ESRD on hemodialysis M/W/F per nursing/ physician notes. Per nephrology, the plan is to continue this schedule. Pharmacy notified that patient will receive dialysis today, will plan on giving vancomycin 1000mg IV x1 after hemodialysis session. Will plan a random trough with AM labs on Friday, since that is the next time dialysis is due. If the patient is to have dialysis before then, a random level will be drawn sooner. PLAN/RECOMMENDATIONS 1. Vancomycin 1000mg IV x1 to be administered after dialysis complete. Will time for 02/19/19 @2100 2. Random vancomycin with AM labs 02/22/19 prior to next dialysis 3. Pharmacy Service will continue to monitor and adjust dosing as required.
--- NOTE | 2019-02-19 14:46 | OP.PCM_ITS ---
Report of Operation Date of Procedure: 02/19/19 Pre-Operative Diagnosis: Need for IV access, septic shock, bacteremia Post-Operative Diagnosis: Same Surgery/Procedure Performed:: Placement of a right femoral triple-lumen catheter Type of Anesthesia:: Local Estimated Blood Loss (mL): Minimal Description of Procedure: Unable to obtain informed consent as unable to reach the POA patient is lethar gic with septic shock and hypotension. The right groin was prepped and draped in usual sterile fashion. Ultrasound guidance was used to locate the right femoral vein. A needle trocar was then inserted into the right femoral vein and there was good aspiration of venous blood. A wire was then threaded into the needle trocar and this thread easily. Once this was done, then the needle trocar was removed. A small skin haritha was made with an 11 blade knife at the wire entrance site. The dilator was then placed over the wire into the right femoral vein via the Seldinger technique. The dilator was removed. The triple-lumen catheter was placed over the guidewire again did advanced easily. All 3 ports aspirated and flushed without any issues. The catheter was sutured with silk suture. Silver dressing was placed. Patient tolerated procedure well. - Complications none
[2019-02-19 15:00] LABS: International Normalized Ratio 2.4; Prothrombin Time (Protime)PT. 26.3 SECONDS (11.7-14.9)
--- NOTE | 2019-02-19 15:47 | PCM.OPRPT ---
Report of Operation Date of Procedure: 02/19/19 Surgery/Procedure Performed:: Triple-lumen catheter insertion Description of Surgical Findings:: Central line placement procedure note Indication: IV access/hemodynamic instability/vasoactive medications Procedure: A time-out was completed to verify correct patient, indication, medication allergies, procedure, coagulation studies, informed consent signed, and equipment needed. The patient was placed in the supine position for a central line placement to the left IJ vein. The patients eft neck was prepped using chlorhexidine and a full body sterile drape was applied. 1% lidocaine was used to anesthetize the surrounding skin. The left IJ vein was accessed, good blood return, dark red blood, nonpulsatile. Able to pass the guidewire approximately 8 cm, unable to advance any further. Guidewire withdrawn without difficulty, intact. Pressure held to right IJ site until no signs of further bleeding or hematoma visible. Dry sterile dressing intact. ICU attending made aware of unsuccessful attempt at left IJ catheter. A second procedure was attempted to the right femoral vein. New sterile supplies obtained. Procedure followed as listed above. Once again, accessed right femoral vein, good dark blood return, nonpulsatile. Unable to successfully thread guidewire. Guidewire removed easily and intact. Pressure held to the site until hemostasis was achieved. Dry sterile dressing placed. The patient tolerated the procedure well. ICU attending aware of unsuccessful right femoral triple-lumen catheter attempt.
--- NOTE | 2019-02-19 18:22 | DIALYSIS ---
Pt tolerated 4hr HD tx well. RANGEL AVF used w/17g needles x 2. Max BFR 250. Net UF -3600ml. See flow record for tx data.
--- NOTE | 2019-02-19 18:27 | NURSING ---
daughter returned call ,updated on condition, voiced understanding of situation, she will try to call daily to get update
[2019-02-19 18:59] LABS: International Normalized Ratio 1.8; Prothrombin Time (Protime)PT. 20.8 SECONDS (11.7-14.9)
--- NOTE | 2019-02-19 19:38 | NURSING ---
Dr. Bennett at bedside to remove right upper chest Temporary Dialysis Catheter.
--- NOTE | 2019-02-19 19:42 | NURSING ---
dr waggoner here discontinued tunnel dialysis catheter, tip to be sent for culture
--- NOTE | 2019-02-19 19:50 | OP.PCM_ITS ---
Report of Operation Date of Procedure: 02/19/19 Pre-Operative Diagnosis: Infected right tunneled dialysis catheter, MRSA b acteremia Post-Operative Diagnosis: Same Surgery/Procedure Performed:: Removal of right tunneled dialysis catheter Type of Anesthesia:: Local Estimated Blood Loss (mL): Minimal Description of Procedure: 69 male with positive blood cultures for MRSA bacteremia and purulent drainage from right tunneled dialysis catheter. Unable to get a hold of the POA this this was done emergently. Patient's initial INR this morning was 4.1 after 2 units it came down to 2.4 another 2 units were given latest INR is 1.8. Right chest tunneled dialysis catheter was prepped with Betadine and draped in usual fashion. Local anesthesia of 1% lidocaine with epinephrine was used for a total of 5 cc. Purulent drainage was seen at the dialysis catheter site. The exit site of the dialysis catheter was slightly enlarged with an 11 blade scalpel. A hemostat was used to dilate the tract up into the cuff. Once the cuff was free the hemostat was used to gently pull on the catheter at the same time placing pressure at the left IJ site. Pressure was held for a total of 20 minutes. There was good hemostasis. Previous exit site of dialysis catheter was dressed with pressure dressing and 4 x 4 and tape. Patient tolerated procedure well. - Complications None
--- NOTE | 2019-02-19 19:50 | NURSING ---
cooling blanket applied for elevated core temperature
[2019-02-19] MEDS: Vancomycin IV 1,000 MG/200 ML BAG 200 MG IV (21:42)
[2019-02-20] VITALS (48 sets, daily range): BP systolic 96–143; BP diastolic 23–99; PULSE 83–102; RESP 9–22; TEMP 36.4–36.9; O2SAT 92–100
[2019-02-20 05:57] LABS: International Normalized Ratio 1.5; Prothrombin Time (Protime)PT. 18.4 SECONDS (11.7-14.9)
[2019-02-20 06:01] LABS: Anion Gap 9 (5-15); BUN 46 mg/dL (7-18); BUN/Creat Ratio 9.2 RATIO (10-20); Calcium,Total 8.3 mg/dL (8.5-10.1); Chloride 97 mmol/L (98-107); Creatinine, Serum 5.01 mg/dL (0.70-1.30); EST Glomerular Filtration Rate 12 mL/min (>60); Est Glom Filt Rate - Afr Amer 15 mL/min (>60); Estimated Creatinine Clearance 12.56 ml/min; Glucose 189 mg/dL (74-106); Magnesium 2.1 mg/dL (1.6-2.6); Phosphorus 5.1 mg/dL (2.5-4.9); Sodium Level 135 mmol/L (136-145)
[2019-02-20 06:02] LABS: Absolute Lymphocyte Count 0.36 X10^3/uL (0.83-4.51); Absolute Neutrophil Count 9.2 X10^3/uL (2.0-7.7); Basophil# 0.03 X10^3/uL; Basophil% 0.3 % (0-1); Eosinophil# 0.27 X10^3/uL; Eosinophils% 2.5 % (0-5); Hematocrit 41.8 % (40-54); Hemoglobin 12.5 g/dL (13.0-16.5); Lymphocyte # 0.36 X10^3/ul (4.0); Lymphocyte % 3.4 % (19-41); Mean Corp Hgb Conc 29.9 g/dL (32-36); Mean Corpuscular Hgb 29.4 pg (27.0-32.0); Mean Corpuscular Volume 98.4 fL (80-94); Mean Platelet Vol. 11.8 fl (6.2-12.0); Monocyte# 0.84 X10^3/uL; Monocyte% 7.8 % (0-10); NRBC Flagged by Analyzer 0 % (0-5); Neutrophil # 9.16 X10^3/uL (2.7-7.7); Neutrophil % 85.4 % (47-70); POSITIVE COUNT YES; POSITIVE DIFFERENTIAL YES; Platelet Count 94 K/mm3 (150-450); RBC Distribution Width CV 17.6 % (11.6-14.6); RBC Distribution Width SD 63.7 fl (35.1-43.9); Red Blood Count 4.25 M/mm3 (4.6-6.2); White Blood Count 10.7 K/mm3 (4.4-11.0)
[2019-02-20 06:03] LABS: Differential Indicated SCAN CRITERIA MET
--- NOTE | 2019-02-20 06:23 | PN_ITS ---
Subjective: Patient did okay overnight. Patient has remained on Levophed to maintain adequate blood pressures. Fever curve appears to have improved. Patient was able to get tunneled hemodialysis line removed later yesterday. Patient has been on 3 L nasal cannula oxygen. Nursing is reporting that he is intermittently making coherent sentences, but not reliably. General: Confused, Disoriented, Lethargic, Non-Cooperative, - - Occasional vocalizations, but not answering my questions. HEENT: Atraumatic, PERRLA, EOMI, Normocephalic, - - Scleral injection without icterus Oral: Moist Mucosa, No Gingival or Mucosal Lesions/ Ulcerations Neck: Supple, No JVD, No Nodes, Trachea Midline Lungs: No rhonchi, No wheeze, No rales, Diminished, - - Symmetric expansion. Cardiovascular: Normal S1, Normal S2, No murmurs, No rub noted, No Gallop, Tachycardic Abdomen: Bowel Sounds Present, Soft, Non Tender, Non-Distended, Obese Extremities: No cyanosis, Edema, - - Multiple amputations Skin: No breakdown, - - Venous stasis changes Musculoskeletal: No Tenderness to Palpation of Joints or Extremities Lymphatic: No Cervical, Supraclavicular, or Inguinal Adenopathy Neurological: Cranial nerves II-XII grossly intact, Neuro grossly intact Psych/Mental Status: Flat Affect, Restless Vital Signs Temp Pulse Resp BP Pulse Ox 36.8 C 93 19 H 100/51 L 100 02/20/19 05:00 02/20/19 05:00 02/20/19 05:00 02/20/19 05:45 02/20/19 05:00 Oxygen Flow Rate (L/min) 3 Oxygen Delivery Method Nasal Cannula Weight: 140.1 kg Body Mass Index (BMI) 50.1 Finger Stick Blood Glucose 145 Intake and Output for Last 24 Hours 02/18/19 02/19/19 02/20/19 23:59 23:59 23:59 Intake Total 2099 1981.85 / 8.75 271.18 / 271.18 Output Total 3601 / 3611 Balance 2099 -1619.15 / -1582.25 261.18 / 261.18 Labs (Last 48 Hours) 02/18/19 02/18/19 02/18/19 18:55 18:55 18:55 WBC 22.5 H RBC 4.41 L Hgb 13.0 Hct 42.2 MCV 95.7 H MCH 29.5 MCHC 30.8 L RDW Std Deviation 60.4 H RDW Coeff of Dixie 17.2 H Plt Count 131 L MPV 11.4 Immature Gran % (Auto) 0.900 Neut % (Auto) 95.3 H Lymph % (Auto) 0.7 L Preston % (Auto) 3.0 Eos % (Auto) 0.0 Baso % (Auto) 0.1 Absolute Neuts (auto) 21.4 H Absolute Lymphs (auto) 0.15 L Nucleated RBC % 0 Differential Comment SCANNED PT 35.6 H INR 3.5 H* APTT 61.8 H Sodium 135 L Potassium 4.4 Chloride 98 Carbon Dioxide 28.0 Anion Gap 9 BUN 60 H Creatinine 5.53 H Estim Creat Clear Calc 13.02 Est GFR (MDRD) Af Amer 13 L Est GFR (MDRD) Non-Af 11 L BUN/Creatinine Ratio 10.8 Glucose 161 H Lactic Acid Calcium 9.3 Phosphorus Magnesium Total Bilirubin 0.70 AST 20 ALT 18 Alkaline Phosphatase 138 H Total Protein 7.0 Albumin 2.9 L Globulin 4.1 Albumin/Globulin Ratio 0.7 L POC Glucose Blood Type 02/18/19 02/19/19 02/19/19 18:55 00:27 03:35 WBC 17.1 H RBC 4.11 L Hgb 12.1 L Hct 39.8 L MCV 96.8 H MCH 29.4 MCHC 30.4 L RDW Std Deviation 61.5 H RDW Coeff of Dixie 17.2 H Plt Count 107 L MPV 11.8 Immature Gran % (Auto) 1.000 H Neut % (Auto) 94.5 H Lymph % (Auto) 0.8 L Preston % (Auto) 3.0 Eos % (Auto) 0.5 Baso % (Auto) 0.2 Absolute Neuts (auto) 16.2 H Absolute Lymphs (auto) 0.14 L Nucleated RBC % 0.1 Differential Comment SCANNED PT INR APTT Sodium Potassium Chloride Carbon Dioxide Anion Gap BUN Creatinine Estim Creat Clear Calc Est GFR (MDRD) Af Amer Est GFR (MDRD) Non-Af BUN/Creatinine Ratio Glucose Lactic Acid 3.2 H* 2.3 H* Calcium Phosphorus Magnesium Total Bilirubin AST ALT Alkaline Phosphatase Total Protein Albumin Globulin Albumin/Globulin Ratio POC Glucose Blood Type 02/19/19 02/19/19 02/19/19 03:35 03:35 03:35 WBC RBC Hgb Hct MCV MCH MCHC RDW Std Deviation RDW Coeff of [place] Plt Count MPV Immature Gran % (Auto) Neut % (Auto) Lymph % (Auto) Preston % (Auto) Eos % (Auto) Baso % (Auto) Absolute Neuts (auto) Absolute Lymphs (auto) Nucleated RBC % Differential Comment PT 39.8 H INR 4.1 H* APTT Sodium 135 L Potassium 5.4 H Chloride 100 Carbon Dioxide 28.0 Anion Gap 7 BUN 66 H Creatinine 5.86 H Estim Creat Clear Calc 10.74 Est GFR (MDRD) Af Amer 12 L Est GFR (MDRD) Non-Af 10 L BUN/Creatinine Ratio 11.3 Glucose 155 H Lactic Acid 2.1 H* Calcium 8.3 L Phosphorus Magnesium Total Bilirubin AST ALT Alkaline Phosphatase Total Protein Albumin Globulin Albumin/Globulin Ratio POC Glucose Blood Type 02/19/19 02/19/19 02/19/19 03:49 08:30 08:30 WBC RBC Hgb Hct MCV MCH MCHC RDW Std Deviation RDW Coeff of [place] Plt Count MPV Immature Gran % (Auto) Neut % (Auto) Lymph % (Auto) Preston % (Auto) Eos % (Auto) Baso % (Auto) Absolute Neuts (auto) Absolute Lymphs (auto) Nucleated RBC % Differential Comment PT INR APTT Sodium Potassium Chloride Carbon Dioxide Anion Gap BUN Creatinine Estim Creat Clear Calc Est GFR (MDRD) Af Amer Est GFR (MDRD) Non-Af BUN/Creatinine Ratio Glucose Lactic Acid Calcium Phosphorus Magnesium Total Bilirubin AST ALT Alkaline Phosphatase Total Protein Albumin Globulin Albumin/Globulin Ratio POC Glucose 145 H Blood Type TNP A POSITIVE 02/19/19 02/19/19 02/20/19 14:45 18:20 03:05 WBC 10.7 RBC 4.25 L Hgb 12.5 L Hct 41.8 MCV 98.4 H MCH 29.4 MCHC 29.9 L RDW Std Deviation 63.7 H RDW Coeff of Dixie 17.6 H Plt Count 94 L MPV 11.8 Immature Gran % (Auto) 0.600 Neut % (Auto) 85.4 H Lymph % (Auto) 3.4 L Preston % (Auto) 7.8 Eos % (Auto) 2.5 Baso % (Auto) 0.3 Absolute Neuts (auto) 9.2 H Absolute Lymphs (auto) 0.36 L Nucleated RBC % 0 Differential Comment PT 26.3 H 20.8 H INR 2.4 1.8 APTT Sodium Potassium Chloride Carbon Dioxide Anion Gap BUN Creatinine Estim Creat Clear Calc Est GFR (MDRD) Af Amer Est GFR (MDRD) Non-Af BUN/Creatinine Ratio Glucose Lactic Acid Calcium Phosphorus Magnesium Total Bilirubin AST ALT Alkaline Phosphatase Total Protein Albumin Globulin Albumin/Globulin Ratio POC Glucose Blood Type 02/20/19 02/20/19 03:05 03:05 WBC RBC Hgb Hct MCV MCH MCHC RDW Std Deviation RDW Coeff of Dix[place] Plt Count MPV Immature Gran % (Auto) Neut % (Auto) Lymph % (Auto) Preston % (Auto) Eos % (Auto) Baso % (Auto) Absolute Neuts (auto) Absolute Lymphs (auto) Nucleated RBC % Differential Comment PT 18.4 H INR 1.5 APTT Sodium 135 L Potassium 4.0 Chloride 97 L Carbon Dioxide 29.0 Anion Gap 9 BUN 46 H Creatinine 5.01 H Estim Creat Clear Calc 12.56 Est GFR (MDRD) Af Amer 15 L Est GFR (MDRD) Non-Af 12 L BUN/Creatinine Ratio 9.2 L Glucose 189 H Lactic Acid Calcium 8.3 L Phosphorus 5.1 H Magnesium 2.1 Total Bilirubin AST ALT Alkaline Phosphatase Total Protein Albumin Globulin Albumin/Globulin Ratio POC Glucose Blood Type Microbiology 02/18/19 18:55 Blood Culture (Wb) - Venous Bacteria Detection (PCR) - Final Meth. resistant Staph. aureus 02/18/19 18:55 Blood Culture (Wb) - Venous Blood Culture - Preliminary 02/18/19 18:55 Blood Culture (Wb) - Venous Blood Culture - Preliminary 02/18/19 19:55 Mucosa - Nasopharyngeal Influenza Types A,B Direct FA (FILIBERTO) - Final Medical Necessity - Tobacco Use Smoking Status: Former smoker Assessment/Plan All Active Problems (Last Reviewed 02/19/19 @ 00:13 by Stew Aldrich MD) Septic shock (Acute) RECOMMENDATIONS: 1. Repeat blood cultures per infectious disease 2. Continue vancomycin around dialysis 3. Hold on additional vitamin K or FFP 4. Wean Levophed as tolerated 5. Hold on any stress dose steroids 6. Wean FiO2 as tolerated. Patient reportedly DNR Comfort Care arrest without intubation IMPRESSIONS: 1. Septic shock secondary to MRSA secondary to probable line infection Clinical suspicion for MRSA bacteremia secondary to hemodialysis line. Patient has grown blood cultures within 12 hours with MRSA indicating high bacterial burden at this time. Patient is on appropriate antibiotics. Patient has had his dialysis catheter removed and sent for culture. Patient is on vancomycin with no plans for dialysis over the weekend. Wean Levophed as tolerated. May need to add midodrine to completely discontinue medications, but this appears to be relatively early at this time. 2. Metabolic encephalopathy secondary to #1 Patient reportedly does have a 60% stenosis, but decreased mental status likely secondary to septic shock. We will continue to monitor hemodynamics. Likely okay to discontinue NIH evaluation as patient is not a candidate for TPA. Patient does appear to be controlling his airway at this time. Respiratory status appears to be improving 3. Coagulopathy secondary to Coumadin secondary to A. fib Patient was reversed on INR secondary to acute status and need for interventions. Patient does have a stenosis noted on CTA, the risks of continued anticoagulation are too high. 4. End-stage renal disease on hemodialysis Patient is followed by [facility]. Patient did receive dialysis yesterday. Dialysis nurse did report that the fistula was used, but has some concerns to the long-term viability of this fistula. Tunneled dialysis catheter was removed. 5. Uncontrolled diabetes mellitus Patient likely to have a high endogenous steroid release given patient's current status. Will cover with sliding scale insulin only. Patient will be n.p.o. secondary to #2. 6. Morbid obesity/peripheral artery disease/COPD/chronic diastolic CHF/history of osteomyelitis/secondary pulmonary hypertension Complicates care, management, recovery and prognosis. Patient can stay on aerosolized therapies for now. Do not believe patient will be able to tolerate volume removal in the acute setting, but may have an element of pulmonary edema leading to oxygenation issues. Patient does have a history of knee replacements, but is moving his legs frequently, so I doubt infected prosthesis at this time. TIME: 32 minutes critical care time spent addressing septic shock, metabolic encephalopathy, coagulopathy, review of all data and collaboration with care team. (5:20 AM to 6:20 AM) Code Visit [id number]: [id number] Critical care first hour
[2019-02-20] MEDS: Ipratropium/Albuterol Sulfate 3 ML AMPUL.NEB INHALATION ×3 (06:36→19:25)
[2019-02-20] MEDS: Budesonide Respules 0.5 MG/2 ML AMPUL.NEB. INHALATION ×2 (06:36→19:25)
[2019-02-20 07:12] LABS: Differential Comment SCANNED
--- NOTE | 2019-02-20 09:07 | PCM.PN.SRG ---
Patient Problems: Active and Suspected Problems (Last Reviewed 02/19/19 @ 00:13 by Stew Aldrich MD) Septic shock (Acute) Subjective: Patient did have the right tunneled dialysis catheter removed yesterday and tip was sent for culture currently pending, levo has been able to be decreased, patient still does not answer questions/lethargic - Physical Exam Vitals/I&O's: Vital Signs Temp Pulse Resp BP Pulse Ox 98.4 F 92 18 105/76 96 02/20/19 06:00 02/20/19 07:20 02/20/19 06:36 02/20/19 06:00 02/20/19 06:36 Oxygen Flow Rate (L/min) 3 Oxygen Delivery Method Nasal Cannula Weight: 308 lb 13.882 oz Body Mass Index (BMI) 50.1 Finger Stick Blood Glucose 145 Intake and Output for Last 24 Hours 02/18/19 02/19/19 02/20/19 23:59 23:59 23:59 Intake Total 2099 1981.85 / 2028.75 275.88 / 275.88 Output Total 3601 / 3611 Balance 2099 -1619.15 / -1582.25 265.88 / 265.88 General: Lethargic Lungs: Normal air movement Cardiovascular: Regular rate Abdomen: Soft, Non Tender, Non-Distended Skin: - - Previous right tunneled dialysis catheter site dry, no signs of drainage, right femoral triple-lumen in place. Microbiology Past 72 Hours 02/18/19 18:55 Blood Culture (Wb) - Venous Blood Culture - Preliminary 02/18/19 18:55 Blood Culture (Wb) - Venous Bacteria Detection (PCR) - Final Meth. resistant Staph. aureus 02/18/19 18:55 Blood Culture (Wb) - Venous Blood Culture - Preliminary 02/18/19 19:55 Mucosa - Nasopharyngeal Influenza Types A,B Direct FA (FILIBERTO) - Final Laboratory Results 02/19/19 08:30: Blood Type TNP 02/19/19 14:45: PT 26.3 H, INR 2.4 02/19/19 18:20: PT 20.8 H, INR 1.8 02/20/19 03:05: WBC 10.7, RBC 4.25 L, Hgb 12.5 L, Hct 41.8, MCV 98.4 H, MCH 29.4, MCHC 29.9 L, RDW Std Deviation 63.7 H, RDW Coeff of Dixie 17.6 H, Plt Count 94 L, MPV 11.8, Immature Gran % (Auto) 0.600, Neut % (Auto) 85.4 H, Lymph % (Auto) 3.4 L, [place] % (Auto) 7.8, Eos % (Auto) 2.5, Baso % (Auto) 0.3, Absolute Neuts (auto) 9.2 H, Absolute Lymphs (auto) 0.36 L, Nucleated RBC % 0, Differential Comment SCANNED 02/20/19 03:05: PT 18.4 H, INR 1.5 02/20/19 03:05: Sodium 135 L, Potassium 4.0, Chloride 97 L, Carbon Dioxide 29.0, Anion Gap 9, BUN 46 H, Creatinine 5.01 H, Estim Creat Clear Calc 12.56, Est GFR (MDRD) Af Amer 15 L, Est GFR (MDRD) Non-Af 12 L, BUN/Creatinine Ratio 9.2 L, Glucose 189 H, Calcium 8.3 L, Phosphorus 5.1 H, Magnesium 2.1 Current Medications Acetaminophen (Tylenol) 650 mg RECTAL Q4H PRN PRN PRN Reason: Pain Score 1-10/Temp > 100.7 F Last Admin: 02/19/19 23:46 Dose: 650 mg Documented by: Albuterol/Ipratropium (Duoneb) 3 ml INHALATION Q6H.RT [facility] Last Admin: 02/20/19 06:36 Dose: 3 ml Documented by: Bisacodyl (Dulcolax) 5 mg PO DAILY PRN PRN PRN Reason: Constipation Budesonide (Pulmicort Aerosol) 0.5 mg INHALATION Q12H.RT [facility] Last Admin: 02/20/19 06:36 Dose: 0.5 mg Documented by: Glucagon () 1 mg IM .X1 PRN PRN Reason: Hypoglycemia Heparin Sodium (Porcine) () 2,500 units IV UD PRN PRN Reason: Dialysis Cath Heparin Flush Piperacillin Sod/Tazobactam (Sod 3.375 gm/ Sodium Chloride) 50 mls @ 12.5 mls/hr IV Q12 [facility] Last Infusion: 02/20/19 01:46 Dose: Infused Documented by: Pantoprazole Sodium 40 mg/ (Sodium Chloride) 110 mls @ 330 mls/hr IV Q24 [facility] Last Infusion: 02/19/19 02:01 Dose: Infused Documented by: Vancomycin IV Pharmacy to Dose (1,500 ea/ Sodium Chloride) 500 mls @ 250 mls/hr IV PRN PRN; Protocol Dextrose (Dextrose 10%-Water) 250 mls @ 999 mls/hr IV X1 PRN; Protocol PRN Reason: HYPOGLYCEMIA Sodium Chloride () 250 mls @ 15 mls/hr IV .[id number] PRN PRN Reason: Saline Flush Norepinephrine Bitartrate 8 mg (/ Sodium Chloride) 250 mls @ 9.375 mls/hr CONT INF .[id number] [facility]; Protocol Last Titration: 02/20/19 06:00 Dose: 10 mcg/min, 18.8 mls/hr Documented by: Ondansetron HCl (Zofran) 4 mg IV Q8H PRN PRN PRN Reason: NAUSEA/VOMITING Sodium Chloride () 10 ml IV UD PRN PRN Reason: Dialysis Catheter Flush Sodium Chloride () 10 - 40 ml IV UD PRN PRN Reason: SALINE FLUSH Medical Necessity - Tobacco Use Smoking Status: Former smoker Assessment/Plan All Active Problems (Last Reviewed 02/19/19 @ 00:13 by Stew Aldrich MD) Septic shock (Acute) 69-year-old male with septic shock, MRSA blood culture, end-stage renal disease, infected tunneled right IJ dialysis catheter that is post removal, left arm fistula?torturous but able to be used yesterday for dialysis, supratherapeutic INR?resolved 1. Patient's white blood cell count is improved as well as patient is been able decrease levo. Not plan to put any permanent catheters in until the 72 hours after the previous dialysis catheter was removed. Hopefully patient will be able to be dialyzed again Friday with his left upper extremity AV fistula. Saige Bennett M.D. Pager: [phone] [facility] [address] [place] [address], [facility], [address] [place] [address] Office: [phone] Code Visit Inpatient E&M: 27418 Subs Hosp L1
--- NOTE | 2019-02-20 10:02 | PCM.PN.HOSP ---
Patient Problems: Active and Suspected Problems (Last Reviewed 02/19/19 @ 00:13 by Stew Aldrich MD) Septic shock (Acute) Reason for Visit: Septic shock Subjective: Patient was seen and examined. He had a right sided femoral line placed. His right tunneled hemodialysis catheter was removed. Patient remained febrile. T-max is 102.4F. He remains on pressors and that has improved. He is more alert and oriented but confused. Vitals/I&O's: Vital Signs Temp Pulse Resp BP Pulse Ox 97.8 F 95 18 123/53 H 98 02/20/19 09:00 02/20/19 09:00 02/20/19 09:00 02/20/19 09:00 02/20/19 09:00 Oxygen Flow Rate (L/min) 3 Oxygen Delivery Method Nasal Cannula Weight: 140.1 kg Body Mass Index (BMI) 50.1 Finger Stick Blood Glucose 145 Intake and Output for Last 24 Hours 02/18/19 02/19/19 02/20/19 23:59 23:59 23:59 Intake Total 2099 1981.85 / 2027.75 332.28 / 332.28 Output Total 3601 / 3611 Balance 2099 -1619.15 / -1582.25 322.28 / 322.28 General: Alert, Oriented x3, Cooperative, - - Morbidly obese, chronically ill looking, on 3 L of oxygen HEENT: Atraumatic, PERRLA, EOMI, Normocephalic Oral: Moist Mucosa Neck: Supple Lungs: Clear to auscultation, Normal air movement Cardiovascular: Regular rate, Regular Rhythm, Normal S1, Normal S2, No murmurs Abdomen: Bowel Sounds Present, Soft, Non Tender, Non-Distended, No Hepato-splenomegaly Extremities: No edema Skin: No rashes Musculoskeletal: No Tenderness to Palpation of Joints or Extremities Lymphatic: No Cervical, Supraclavicular, or Inguinal Adenopathy Neurological: Cranial nerves II-XII grossly intact, Neuro grossly intact Psych/Mental Status: Normal Affect Microbiology Past 72 Hours 02/18/19 18:55 Blood Culture (Wb) - Venous Blood Culture - Preliminary 02/18/19 18:55 Blood Culture (Wb) - Venous Bacteria Detection (PCR) - Final Meth. resistant Staph. aureus 02/18/19 18:55 Blood Culture (Wb) - Venous Blood Culture - Preliminary 02/18/19 19:55 Mucosa - Nasopharyngeal Influenza Types A,B Direct FA (FILIBERTO) - Final Laboratory Results 02/19/19 14:45: PT 26.3 H, INR 2.4 02/19/19 18:20: PT 20.8 H, INR 1.8 02/20/19 03:05: WBC 10.7, RBC 4.25 L, Hgb 12.5 L, Hct 41.8, MCV 98.4 H, MCH 29.4, MCHC 29.9 L, RDW Std Deviation 63.7 H, RDW Coeff of Dixie 17.6 H, Plt Count 94 L, MPV 11.8, Immature Gran % (Auto) 0.600, Neut % (Auto) 85.4 H, Lymph % (Auto) 3.4 L, [place] % (Auto) 7.8, Eos % (Auto) 2.5, Baso % (Auto) 0.3, Absolute Neuts (auto) 9.2 H, Absolute Lymphs (auto) 0.36 L, Nucleated RBC % 0, Differential Comment SCANNED 02/20/19 03:05: PT 18.4 H, INR 1.5 02/20/19 03:05: Sodium 135 L, Potassium 4.0, Chloride 97 L, Carbon Dioxide 29.0, Anion Gap 9, BUN 46 H, Creatinine 5.01 H, Estim Creat Clear Calc 12.56, Est GFR (MDRD) Af Amer 15 L, Est GFR (MDRD) Non-Af 12 L, BUN/Creatinine Ratio 9.2 L, Glucose 189 H, Calcium 8.3 L, Phosphorus 5.1 H, Magnesium 2.1 Current Medications Acetaminophen (Tylenol) 650 mg RECTAL Q4H PRN PRN PRN Reason: Pain Score 1-10/Temp > 100.7 F Last Admin: 02/19/19 23:46 Dose: 650 mg Documented by: Albuterol/Ipratropium (Duoneb) 3 ml INHALATION Q6H.RT [facility] Last Admin: 02/20/19 06:36 Dose: 3 ml Documented by: Bisacodyl (Dulcolax) 5 mg PO DAILY PRN PRN PRN Reason: Constipation Budesonide (Pulmicort Aerosol) 0.5 mg INHALATION Q12H.RT [facility] Last Admin: 02/20/19 06:36 Dose: 0.5 mg Documented by: Glucagon () 1 mg IM .X1 PRN PRN Reason: Hypoglycemia Heparin Sodium (Porcine) () 2,500 units IV UD PRN PRN Reason: Dialysis Cath Heparin Flush Piperacillin Sod/Tazobactam (Sod 3.375 gm/ Sodium Chloride) 50 mls @ 12.5 mls/hr IV Q12 [facility] Last Infusion: 02/20/19 01:46 Dose: Infused Documented by: Pantoprazole Sodium 40 mg/ (Sodium Chloride) 110 mls @ 330 mls/hr IV Q24 [facility] Last Infusion: 02/19/19 02:01 Dose: Infused Documented by: Vancomycin IV Pharmacy to Dose (1,500 ea/ Sodium Chloride) 500 mls @ 250 mls/hr IV PRN PRN; Protocol Dextrose (Dextrose 10%-Water) 250 mls @ 999 mls/hr IV X1 PRN; Protocol PRN Reason: HYPOGLYCEMIA Sodium Chloride () 250 mls @ 15 mls/hr IV .[id number] PRN PRN Reason: Saline Flush Norepinephrine Bitartrate 8 mg (/ Sodium Chloride) 250 mls @ 9.375 mls/hr CONT INF .[id number] [facility]; Protocol Last Titration: 02/20/19 09:00 Dose: 10 mcg/min, 18.8 mls/hr Documented by: Ondansetron HCl (Zofran) 4 mg IV Q8H PRN PRN PRN Reason: NAUSEA/VOMITING Sodium Chloride () 10 ml IV UD PRN PRN Reason: Dialysis Catheter Flush Sodium Chloride () 10 - 40 ml IV UD PRN PRN Reason: SALINE FLUSH STROKE Vital Signs/Narrative: Vital Signs Temp Pulse Resp BP BP Pulse Ox 02/20/19 09:00 97.8 F 95 18 123/53 H 123/53 H 98 02/20/19 08:00 98.1 F 89 12 100/29 L 100/29 L 100 02/20/19 07:20 92 02/20/19 06:36 90 18 96 Medical Necessity - Tobacco Use Smoking Status: Former smoker Assessment/Plan All Active Problems (Last Reviewed 02/19/19 @ 00:13 by Stew Aldrich MD) Septic shock (Acute) 1. Septic shock, likely related to hemodialysis access infection versus skin infection Patient appears clinically improved, remains on pressors On IV vancomycin and Zosyn Will trend CBC D, wean off pressors for map more than 65 We will resume patient's Midodrine po as he is more awake. 2. MRSA bacteremia, 2D echo pending, repeat blood cultures pending 3. Acute metabolic encephalopathy secondary to #1 and #2, slowly improving, continue to monitor 4. ESRD on hemodialysis on hemodialysis, dialyzed yesterday, Friday Next dialysis will be on Friday 5. Type II DM, fairly controlled 6. Chronic atrial fibrillation, in NSR now, off warfarin for now, INR is 1.5 Given 2 units FFPs yesterday. 7. Lactic acidosis secondary to hypotension and hypoxia, resolving 8. Chronic thrombocytopenia, platelet count now 94, Will put on heparin subcu DVT prophylaxis and monitor plts in am 9. Rest of his chronic medical problems including COPD, chronic diastolic CHF, morbid obesity, pulmonary hypertension all remain unchanged for now but complicates his care. 10. DVT ppx- Heparin SC Code Visit Inpatient E&M: 07273 Subs Hosp L2
[2019-02-20] MEDS: Midodrine HCl 5 MG Tablet 10 MG PO ×2 (11:12→21:50)
[2019-02-20 11:20] LABS: Bedside Glucose 133 mg/dL (70-110)
[2019-02-20] MEDS: Calcium Acetate 667 MG Capsule 1334 MG PO (18:18)
--- NOTE | 2019-02-20 18:25 | PCM.PROGNOTE ---
Patient Problems: Active and Suspected Problems (Last Reviewed 02/19/19 @ 00:13 by Stew Aldrich MD) Septic shock (Acute) Subjective: no c/o no cp/sob no c/o - Physical Exam Vitals/I&O's: Vital Signs Temp Pulse Resp BP Pulse Ox 98.5 F 85 11 L 108/35 L 93 02/20/19 17:00 02/20/19 18:00 02/20/19 18:00 02/20/19 18:00 02/20/19 18:00 Oxygen Flow Rate (L/min) 3 Oxygen Delivery Method Nasal Cannula Weight: 140.1 kg Body Mass Index (BMI) 50.1 Finger Stick Blood Glucose 145 Intake and Output for Last 24 Hours 02/18/19 02/19/19 02/20/19 23:59 23:59 23:59 Intake Total 2099 1981.85 / 2027.75 680.03 / 680.03 Output Total 3601 / 3611 Balance 2099 -1619.15 / -1582.25 670.03 / 670.03 General: Alert, Cooperative HEENT: Atraumatic, PERRLA, EOMI, Normocephalic Neck: Supple, No JVD, Negative Carotid Bruits Lungs: Clear to auscultation, Normal air movement Cardiovascular: Regular rate, No murmurs Abdomen: Bowel Sounds Present, Soft, Non Tender, Obese - lue avf good thrill and bruit Extremities: No edema, Capillary Refill Less than 3 Seconds Skin: No rashes, No breakdown Musculoskeletal: No Tenderness to Palpation of Joints or Extremities Neurological: Cranial nerves II-XII grossly intact Psych/Mental Status: Normal Affect, Appropriate Microbiology Past 72 Hours 02/19/19 19:30 Other - Dialysis/Fistula Miscellaneous Culture - Preliminary Staphylococcus aureus 02/19/19 19:30 Other - Dialysis/Fistula Gram Stain - Final 02/18/19 18:55 Blood Culture (Wb) - Venous Bacteria Detection (PCR) - Final Meth. resistant Staph. aureus 02/18/19 18:55 Blood Culture (Wb) - Venous Blood Culture - Preliminary Meth. resistant Staph. aureus 02/18/19 18:55 Blood Culture (Wb) - Venous Blood Culture - Preliminary 02/18/19 19:55 Mucosa - Nasopharyngeal Influenza Types A,B Direct FA (FILIBERTO) - Final Laboratory Results 02/19/19 18:20: PT 20.8 H, INR 1.8 02/20/19 03:05: WBC 10.7, RBC 4.25 L, Hgb 12.5 L, Hct 41.8, MCV 98.4 H, MCH 29.4, MCHC 29.9 L, RDW Std Deviation 63.7 H, RDW Coeff of Dixie 17.6 H, Plt Count 94 L, MPV 11.8, Immature Gran % (Auto) 0.600, Neut % (Auto) 85.4 H, Lymph % (Auto) 3.4 L, [place] % (Auto) 7.8, Eos % (Auto) 2.5, Baso % (Auto) 0.3, Absolute Neuts (auto) 9.2 H, Absolute Lymphs (auto) 0.36 L, Nucleated RBC % 0, Differential Comment SCANNED 02/20/19 03:05: PT 18.4 H, INR 1.5 02/20/19 03:05: Sodium 135 L, Potassium 4.0, Chloride 97 L, Carbon Dioxide 29.0, Anion Gap 9, BUN 46 H, Creatinine 5.01 H, Estim Creat Clear Calc 12.56, Est GFR (MDRD) Af Amer 15 L, Est GFR (MDRD) Non-Af 12 L, BUN/Creatinine Ratio 9.2 L, Glucose 189 H, Calcium 8.3 L, Phosphorus 5.1 H, Magnesium 2.1 02/20/19 11:16: POC Glucose 133 H Current Medications Acetaminophen (Tylenol) 650 mg RECTAL Q4H PRN PRN PRN Reason: Pain Score 1-10/Temp > 100.7 F Last Admin: 02/19/19 23:46 Dose: 650 mg Documented by: Albuterol/Ipratropium (Duoneb) 3 ml INHALATION Q6H.RT [facility] Last Admin: 02/20/19 13:36 Dose: 3 ml Documented by: Bisacodyl (Dulcolax) 5 mg PO DAILY PRN PRN PRN Reason: Constipation Budesonide (Pulmicort Aerosol) 0.5 mg INHALATION Q12H.RT [facility] Last Admin: 02/20/19 06:36 Dose: 0.5 mg Documented by: Calcium Acetate (Phoslo Gel Cap) 1,334 mg PO BIDCM [facility] Last Admin: 02/20/19 18:18 Dose: 1,334 mg Documented by: Glucagon () 1 mg IM .X1 PRN PRN Reason: Hypoglycemia Heparin Sodium (Porcine) () 2,500 units IV UD PRN PRN Reason: Dialysis Cath Heparin Flush Piperacillin Sod/Tazobactam (Sod 3.375 gm/ Sodium Chloride) 50 mls @ 12.5 mls/hr IV Q12 [facility] Last Infusion: 02/20/19 14:02 Dose: 12.5 mls/hr Documented by: Pantoprazole Sodium 40 mg/ (Sodium Chloride) 110 mls @ 330 mls/hr IV Q24 [facility] Last Infusion: 02/20/19 10:35 Dose: Infused Documented by: Vancomycin IV Pharmacy to Dose (1,500 ea/ Sodium Chloride) 500 mls @ 250 mls/hr IV PRN PRN; Protocol Dextrose (Dextrose 10%-Water) 250 mls @ 999 mls/hr IV X1 PRN; Protocol PRN Reason: HYPOGLYCEMIA Sodium Chloride () 250 mls @ 15 mls/hr IV .[id number] PRN PRN Reason: Saline Flush Norepinephrine Bitartrate 8 mg (/ Sodium Chloride) 250 mls @ 9.375 mls/hr CONT INF .[id number] [facility]; Protocol Last Titration: 02/20/19 14:02 Dose: 10 mcg/min, 18.8 mls/hr Documented by: Insulin Human Lispro (Humalog Kwikpen (Bkc)) 0 unit SC Q6 [facility]; Protocol Last Admin: 02/20/19 18:18 Dose: Not Given Documented by: Midodrine (Proamatine) 10 mg PO BID [facility] Last Admin: 02/20/19 11:12 Dose: 10 mg Documented by: Ondansetron HCl (Zofran) 4 mg IV Q8H PRN PRN PRN Reason: NAUSEA/VOMITING Sodium Chloride () 10 ml IV UD PRN PRN Reason: Dialysis Catheter Flush Sodium Chloride () 10 - 40 ml IV UD PRN PRN Reason: SALINE FLUSH Medical Necessity - Tobacco Use Smoking Status: Former smoker Assessment/Plan All Active Problems (Last Reviewed 02/19/19 @ 00:13 by Stew Aldrich MD) Septic shock (Acute) ESRD Anemia CKD MBD Septic shock Pulmonary edema tolerated well HD via avf with 17 gauge needles Continue Friday dialysis. AL with HD if lower Hb no need for now On pressors keep MAP more than 65. On levophed 10 mcg which is less than 25 mcg yesterday Antibiotics as per primary
[2019-02-21] VITALS (41 sets, daily range): BP systolic 83–114; BP diastolic 50–72; PULSE 80–97; RESP 11–27; TEMP 36.2–37.2; O2SAT 92–100
[2019-02-21 00:46] LABS: Bedside Glucose 129 mg/dL (70-110)
[2019-02-21 00:51] LABS: Bedside Glucose 168 mg/dL (70-110)
[2019-02-21 03:05] LABS: Bedside Glucose 126 mg/dL (70-110)
[2019-02-21 04:20] LABS: Absolute Neutrophil Count 7.1 X10^3/uL (2.0-7.7); Basophil# 0.02 X10^3/uL; Basophil% 0.2 % (0-1); Eosinophils% 2.3 % (0-5); Hematocrit 41.2 % (40-54); Hemoglobin 12.4 g/dL (13.0-16.5); Lymphocyte % 4.7 % (19-41); Mean Corp Hgb Conc 30.1 g/dL (32-36); Mean Corpuscular Volume 96.5 fL (80-94); Mean Platelet Vol. 11.5 fl (6.2-12.0); Monocyte% 9.3 % (0-10); NRBC Flagged by Analyzer 0 % (0-5); Neutrophil # 7.13 X10^3/uL (2.7-7.7); POSITIVE COUNT YES; POSITIVE DIFFERENTIAL YES; Platelet Count 84 K/mm3 (150-450); RBC Distribution Width CV 17.3 % (11.6-14.6); RBC Distribution Width SD 62.2 fl (35.1-43.9); Red Blood Count 4.27 M/mm3 (4.6-6.2); White Blood Count 8.6 K/mm3 (4.4-11.0)
[2019-02-21 04:30] LABS: Differential Indicated SCAN CRITERIA MET
[2019-02-21 05:36] LABS: ALB/GLOB Ratio 0.6 RATIO (0.9-2.4); AST(SGOT) 42 U/L (15-37); Alanine Aminotransfer ALT/SGPT 40 U/L (16-61); Albumin, Serum 2.6 g/dL (3.2-5.0); Alkaline Phosphatase 111 U/L (45-117); Anion Gap 7 (5-15); BUN 62 mg/dL (7-18); BUN/Creat Ratio 9.9 RATIO (10-20); Calcium,Total 8.6 mg/dL (8.5-10.1); Chloride 98 mmol/L (98-107); Creatinine, Serum 6.27 mg/dL (0.70-1.30); EST Glomerular Filtration Rate 10 mL/min (>60); Est Glom Filt Rate - Afr Amer 12 mL/min (>60); Estimated Creatinine Clearance 10.03 ml/min; Globulin 4.2 g/dL (2.2-4.2); Glucose 139 mg/dL (74-106); Potassium 4.1 mmol/L (3.5-5.1); Protein, Total 6.8 g/dL (6.4-8.2); Sodium Level 135 mmol/L (136-145)
[2019-02-21 06:40] LABS: Bedside Glucose 127 mg/dL (70-110)
[2019-02-21] MEDS: Ipratropium/Albuterol Sulfate 3 ML AMPUL.NEB INHALATION ×3 (06:56→19:39)
[2019-02-21] MEDS: Budesonide Respules 0.5 MG/2 ML AMPUL.NEB. INHALATION ×2 (06:56→19:39)
--- NOTE | 2019-02-21 07:10 | PN_ITS ---
Subjective: Patient did okay overnight. Patient still with intermittent confusion and Levophed requirements. Fever curve is improving. Patient was reinitiated on midodrine overnight. Respiratory status has remained relatively stable at 3 L nasal cannula. Patient has developed some ecchymosis at the fistula site. Objective: Pus was noted at removal of tunneled hemodialysis line. This has grown staph aureus. General: Confused, Disoriented, Lethargic, Non-Cooperative, - - Morbidly obese. HEENT: Atraumatic, PERRLA, EOMI, Normocephalic, - - No scleral icterus or injection noted Oral: Moist Mucosa, No Gingival or Mucosal Lesions/ Ulcerations Neck: Supple, No Nodes, Trachea Midline, JVD, Right Lungs: No rhonchi, No wheeze, No rales, Diminished, - - Symmetric expansion. No dullness to percussion. Cardiovascular: Normal S1, Normal S2, No murmurs, Irregular Rate, No rub noted, No Gallop Abdomen: Bowel Sounds Present, Soft, Non Tender, Non-Distended, Obese Extremities: No clubbing, No cyanosis, No edema, Diminished Peripheral Pulses Skin: - - Grossly unchanged compared to previous Musculoskeletal: No Tenderness to Palpation of Joints or Extremities Lymphatic: No Cervical, Supraclavicular, or Inguinal Adenopathy Neurological: Cranial nerves II-XII grossly intact, Neuro grossly intact, - - Decreased sensations peripherally. Psych/Mental Status: Flat Affect Vital Signs Temp Pulse Resp BP Pulse Ox 37.2 C 80 12 107/65 98 02/21/19 07:00 02/21/19 07:00 02/21/19 07:00 02/21/19 07:00 02/21/19 07:00 Oxygen Flow Rate (L/min) 3 Oxygen Delivery Method Nasal Cannula Weight: 140.1 kg Body Mass Index (BMI) 50.1 Finger Stick Blood Glucose 145 Intake and Output for Last 24 Hours 02/19/19 02/20/19 02/21/19 23:59 23:59 23:59 Intake Total 1980.85 / 2027.75 977.55 / 996.35 159.49 / 159.49 Output Total 3601 / 3611 0 / 0 Balance -1619.15 / -1582.25 967.55 / 986.35 159.49 / 159.49 Labs (Last 48 Hours) 02/19/19 02/19/19 02/19/19 08:30 08:30 14:45 WBC RBC Hgb Hct MCV MCH MCHC RDW Std Deviation RDW Coeff of Dixie Plt Count MPV Immature Gran % (Auto) Neut % (Auto) Lymph % (Auto) [place] % (Auto) Eos % (Auto) Baso % (Auto) Absolute Neuts (auto) Absolute Lymphs (auto) Nucleated RBC % Differential Comment PT 26.3 H INR 2.4 Sodium Potassium Chloride Carbon Dioxide Anion Gap BUN Creatinine Estim Creat Clear Calc Est GFR (MDRD) Af Amer Est GFR (MDRD) Non-Af BUN/Creatinine Ratio Glucose Calcium Phosphorus Magnesium Total Bilirubin AST ALT Alkaline Phosphatase Total Protein Albumin Globulin Albumin/Globulin Ratio POC Glucose Blood Type TNP A POSITIVE 02/19/19 02/20/19 02/20/19 18:20 03:05 03:05 WBC 10.7 RBC 4.25 L Hgb 12.5 L Hct 41.8 MCV 98.4 H MCH 29.4 MCHC 29.9 L RDW Std Deviation 63.7 H RDW Coeff of [place]ie 17.6 H Plt Count 94 L MPV 11.8 Immature Gran % (Auto) 0.600 Neut % (Auto) 85.4 H Lymph % (Auto) 3.4 L [place] % (Auto) 7.8 Eos % (Auto) 2.5 Baso % (Auto) 0.3 Absolute Neuts (auto) 9.2 H Absolute Lymphs (auto) 0.36 L Nucleated RBC % 0 Differential Comment SCANNED PT 20.8 H 18.4 H INR 1.8 1.5 Sodium Potassium Chloride Carbon Dioxide Anion Gap BUN Creatinine Estim Creat Clear Calc Est GFR (MDRD) Af Amer Est GFR (MDRD) Non-Af BUN/Creatinine Ratio Glucose Calcium Phosphorus Magnesium Total Bilirubin AST ALT Alkaline Phosphatase Total Protein Albumin Globulin Albumin/Globulin Ratio POC Glucose Blood Type 02/20/19 02/20/19 02/20/19 03:05 11:16 18:15 WBC RBC Hgb Hct MCV MCH MCHC RDW Std Deviation RDW Coeff of [place] Plt Count MPV Immature Gran % (Auto) Neut % (Auto) Lymph % (Auto) [place] % (Auto) Eos % (Auto) Baso % (Auto) Absolute Neuts (auto) Absolute Lymphs (auto) Nucleated RBC % Differential Comment PT INR Sodium 135 L Potassium 4.0 Chloride 97 L Carbon Dioxide 29.0 Anion Gap 9 BUN 46 H Creatinine 5.01 H Estim Creat Clear Calc 12.56 Est GFR (MDRD) Af Amer 15 L Est GFR (MDRD) Non-Af 12 L BUN/Creatinine Ratio 9.2 L Glucose 189 H Calcium 8.3 L Phosphorus 5.1 H Magnesium 2.1 Total Bilirubin AST ALT Alkaline Phosphatase Total Protein Albumin Globulin Albumin/Globulin Ratio POC Glucose 133 H 129 H Blood Type 02/21/19 02/21/19 02/21/19 00:45 02:57 04:00 WBC 8.6 RBC 4.27 L Hgb 12.4 L Hct 41.2 MCV 96.5 H MCH 29.0 MCHC 30.1 L RDW Std Deviation 62.2 H RDW Coeff of Dixie 17.3 H Plt Count 84 L MPV 11.5 Immature Gran % (Auto) 0.500 Neut % (Auto) 83.0 H Lymph % (Auto) 4.7 L [place] % (Auto) 9.3 Eos % (Auto) 2.3 Baso % (Auto) 0.2 Absolute Neuts (auto) 7.1 Absolute Lymphs (auto) 0.40 L Nucleated RBC % 0 Differential Comment PT INR Sodium Potassium Chloride Carbon Dioxide Anion Gap BUN Creatinine Estim Creat Clear Calc Est GFR (MDRD) Af Amer Est GFR (MDRD) Non-Af BUN/Creatinine Ratio Glucose Calcium Phosphorus Magnesium Total Bilirubin AST ALT Alkaline Phosphatase Total Protein Albumin Globulin Albumin/Globulin Ratio POC Glucose 168 H 126 H Blood Type 02/21/19 02/21/19 04:00 06:30 WBC RBC Hgb Hct MCV MCH MCHC RDW Std Deviation RDW Coeff of [place] Plt Count MPV Immature Gran % (Auto) Neut % (Auto) Lymph % (Auto) [place] % (Auto) Eos % (Auto) Baso % (Auto) Absolute Neuts (auto) Absolute Lymphs (auto) Nucleated RBC % Differential Comment PT INR Sodium 135 L Potassium 4.1 Chloride 98 Carbon Dioxide 30.0 Anion Gap 7 BUN 62 H Creatinine 6.27 H Estim Creat Clear Calc 10.03 Est GFR (MDRD) Af Amer 12 L Est GFR (MDRD) Non-Af 10 L BUN/Creatinine Ratio 9.9 L Glucose 139 H Calcium 8.6 Phosphorus Magnesium Total Bilirubin 0.70 AST 42 H ALT 40 Alkaline Phosphatase 111 Total Protein 6.8 Albumin 2.6 L Globulin 4.2 Albumin/Globulin Ratio 0.6 L POC Glucose 127 H Blood Type Microbiology 02/19/19 19:30 Other - Dialysis/Fistula Miscellaneous Culture - Preliminary Staphylococcus aureus 02/19/19 19:30 Other - Dialysis/Fistula Gram Stain - Final 02/18/19 18:55 Blood Culture (Wb) - Venous Bacteria Detection (PCR) - Final Meth. resistant Staph. aureus 02/18/19 18:55 Blood Culture (Wb) - Venous Blood Culture - Preliminary Meth. resistant Staph. aureus 02/18/19 18:55 Blood Culture (Wb) - Venous Blood Culture - Preliminary Medical Necessity - Tobacco Use Smoking Status: Former smoker Assessment/Plan All Active Problems (Last Reviewed 02/19/19 @ 00:13 by Stew Aldrich MD) Septic shock (Acute) RECOMMENDATIONS: 1. Repeat blood cultures daily until cleared per infectious disease 2. Continue vancomycin around dialysis 3. Hold on additional vitamin K or FFP 4. Wean Levophed as tolerated 5. Hold on any stress dose steroids 6. Wean FiO2 as tolerated. Patient reportedly DNR Comfort Care arrest without intubation IMPRESSIONS: 1. Septic shock secondary to MRSA secondary to probable line infection Clinical suspicion for MRSA bacteremia secondary to hemodialysis line. Patient has grown blood cultures within 12 hours with MRSA indicating high bacterial burden at this time. Patient is on appropriate antibiotics. Patient has had his dialysis catheter removed, pus was noted and this has come back positive for staph aureus. Patient is on vancomycin with no plans for dialysis over the weekend. Wean Levophed as tolerated. Fever curve and leukocytosis has significantly improved over course of hospitalization. 2. Metabolic encephalopathy secondary to #1 Patient reportedly does have a 60% stenosis, but decreased mental status likely secondary to septic shock. We will continue to monitor hemodynamics. Likely okay to discontinue NIH evaluation as patient is not a candidate for TPA. Patient does appear to be controlling his airway at this time. Respiratory status appears to be improving. May repeat CT scan in 1 to 2 days if mentation is not significantly improving 3. Coagulopathy secondary to Coumadin secondary to A. fib Patient was reversed on INR secondary to acute status and need for interventions. Patient does have a stenosis noted on CTA, the risks of continued anticoagulation are too high. 4. End-stage renal disease on hemodialysis Patient is followed by [facility]. Patient did receive dialysis Friday. Dialysis nurse did report that the fistula was used, but has some concerns to the long-term viability of this fistula. Tunneled dialysis catheter was removed. Ideally, would attempt to clear bacteremia prior to reinitiation of a tunneled hemodialysis line 5. Uncontrolled diabetes mellitus Patient likely to have a high endogenous steroid release given patient's current status. Will cover with sliding scale insulin only. Patient will be n.p.o. secondary to #2. 6. Morbid obesity/peripheral artery disease/COPD/chronic diastolic CHF/history of osteomyelitis/secondary pulmonary hypertension Complicates care, management, recovery and prognosis. Patient can stay on aerosolized therapies for now. Do not believe patient will be able to tolerate volume removal in the acute setting, but may have an element of pulmonary edema leading to oxygenation issues. Patient does have a history of knee replacements, but is moving his legs frequently, so I doubt infected prosthesis at this time. TIME: 33 minutes critical care time spent addressing septic shock, metabolic encep halopathy, coagulopathy, review of all data and collaboration with care team. (6 AM to 7 AM) Code Visit 9xxxx: [id number] Critical care first hour
--- NOTE | 2019-02-21 07:44 | PCM.PN.HOSP ---
Patient Problems: Active and Suspected Problems (Last Reviewed 02/19/19 @ 00:13 by Stew Aldrich MD) Septic shock (Acute) Reason for Visit: Septic shock Subjective: Patient was seen and examined. No acute events overnight. He has remained afebrile. On vasopressors, 10mcg/min. His mentation is improved. Objective: Physical exam: General: Alert, Oriented x3, Cooperative, - - Morbidly obese, chronically ill looking, on 3 L of oxygen HEENT: Atraumatic, PERRLA, EOMI, Normocephalic Oral: Moist Mucosa Neck: Supple Lungs: Clear to auscultation, Normal air movement Cardiovascular: Regular rate, Regular Rhythm, Normal S1, Normal S2, No murmurs Abdomen: Bowel Sounds Present, Soft, Non Tender, Non-Distended, No Hepato-splenomegaly Extremities: No edema Skin: No rashes Musculoskeletal: No Tenderness to Palpation of Joints or Extremities Lymphatic: No Cervical, Supraclavicular, or Inguinal Adenopathy Neurological: Cranial nerves II-XII grossly intact, Neuro grossly intact Psych/Mental Status: Normal Affect Vitals/I&O's: Vital Signs Temp Pulse Resp BP Pulse Ox 98.9 F 81 12 107/65 98 02/21/19 07:00 02/21/19 07:32 02/21/19 07:00 02/21/19 07:00 02/21/19 07:00 Oxygen Flow Rate (L/min) 3 Oxygen Delivery Method Nasal Cannula Weight: 139.3 kg Body Mass Index (BMI) 50.1 Finger Stick Blood Glucose 145 Intake and Output for Last 24 Hours 02/19/19 02/20/19 02/21/19 23:59 23:59 23:59 Intake Total 1980.85 / 8.75 977.55 / 996.35 159.49 / 159.49 Output Total 3601 / 3611 0 / 0 Balance -1619.15 / -1582.25 967.55 / 986.35 159.49 / 159.49 Microbiology Past 72 Hours 02/19/19 19:30 Other - Dialysis/Fistula Miscellaneous Culture - Preliminary Staphylococcus aureus 02/19/19 19:30 Other - Dialysis/Fistula Gram Stain - Final 02/18/19 18:55 Blood Culture (Wb) - Venous Bacteria Detection (PCR) - Final Meth. resistant Staph. aureus 02/18/19 18:55 Blood Culture (Wb) - Venous Blood Culture - Preliminary Meth. resistant Staph. aureus 02/18/19 18:55 Blood Culture (Wb) - Venous Blood Culture - Preliminary 02/18/19 19:55 Mucosa - Nasopharyngeal Influenza Types A,B Direct FA (FILIBERTO) - Final Laboratory Results 02/20/19 11:16: POC Glucose 133 H 02/20/19 18:15: POC Glucose 129 H 02/21/19 00:45: POC Glucose 168 H 02/21/19 02:57: POC Glucose 126 H 02/21/19 04:00: WBC 8.6, RBC 4.27 L, Hgb 12.4 L, Hct 41.2, MCV 96.5 H, MCH 29.0, MCHC 30.1 L, RDW Std Deviation 62.2 H, RDW Coeff of Dixie 17.3 H, Plt Count 84 L, MPV 11.5, Immature Gran % (Auto) 0.500, Neut % (Auto) 83.0 H, Lymph % (Auto) 4.7 L, [place] % (Auto) 9.3, Eos % (Auto) 2.3, Baso % (Auto) 0.2, Absolute Neuts (auto) 7.1, Absolute Lymphs (auto) 0.40 L, Nucleated RBC % 0 02/21/19 04:00: Sodium 135 L, Potassium 4.1, Chloride 98, Carbon Dioxide 30.0, Anion Gap 7, BUN 62 H, Creatinine 6.27 H, Estim Creat Clear Calc 10.03, Est GFR (MDRD) Af Amer 12 L, Est GFR (MDRD) Non-Af 10 L, BUN/Creatinine Ratio 9.9 L, Glucose 139 H, Calcium 8.6, Total Bilirubin 0.70, AST 42 H, ALT 40, Alkaline Phosphatase 111, Total Protein 6.8, Albumin 2.6 L, Globulin 4.2, Albumin/Globulin Ratio 0.6 L 02/21/19 06:30: POC Glucose 127 H Current Medications Acetaminophen (Tylenol) 650 mg RECTAL Q4H PRN PRN PRN Reason: Pain Score 1-10/Temp > 100.7 F Last Admin: 02/19/19 23:46 Dose: 650 mg Documented by: Albuterol/Ipratropium (Duoneb) 3 ml INHALATION Q6H.RT [facility] Last Admin: 02/21/19 06:56 Dose: 3 ml Documented by: Bisacodyl (Dulcolax) 5 mg PO DAILY PRN PRN PRN Reason: Constipation Budesonide (Pulmicort Aerosol) 0.5 mg INHALATION Q12H.RT [facility] Last Admin: 02/21/19 06:56 Dose: 0.5 mg Documented by: Calcium Acetate (Phoslo Gel Cap) 1,334 mg PO BIDCM [facility] Last Admin: 02/20/19 18:18 Dose: 1,334 mg Documented by: Glucagon () 1 mg IM .X1 PRN PRN Reason: Hypoglycemia Heparin Sodium (Porcine) () 2,500 units IV UD PRN PRN Reason: Dialysis Cath Heparin Flush Piperacillin Sod/Tazobactam (Sod 3.375 gm/ Sodium Chloride) 50 mls @ 12.5 mls/hr IV Q12 [facility] Last Infusion: 02/21/19 03:10 Dose: Infused Documented by: Pantoprazole Sodium 40 mg/ (Sodium Chloride) 110 mls @ 330 mls/hr IV Q24 [facility] Last Infusion: 02/20/19 10:35 Dose: Infused Documented by: Vancomycin IV Pharmacy to Dose (1,500 ea/ Sodium Chloride) 500 mls @ 250 mls/hr IV PRN PRN; Protocol Dextrose (Dextrose 10%-Water) 250 mls @ 999 mls/hr IV X1 PRN; Protocol PRN Reason: HYPOGLYCEMIA Sodium Chloride () 250 mls @ 15 mls/hr IV .[id number] PRN PRN Reason: Saline Flush Norepinephrine Bitartrate 8 mg (/ Sodium Chloride) 250 mls @ 9.375 mls/hr CONT INF .[id number] [facility]; Protocol Last Titration: 02/21/19 07:00 Dose: 10 mcg/min, 18.8 mls/hr Documented by: Insulin Human Lispro (Humalog Kwikpen (Bkc)) 0 unit SC Q6 [facility]; Protocol Last Admin: 02/21/19 07:03 Dose: Not Given Documented by: Midodrine (Proamatine) 10 mg PO BID [facility] Last Admin: 02/20/19 21:50 Dose: 10 mg Documented by: Ondansetron HCl (Zofran) 4 mg IV Q8H PRN PRN PRN Reason: NAUSEA/VOMITING Sodium Chloride () 10 ml IV UD PRN PRN Reason: Dialysis Catheter Flush Sodium Chloride () 10 - 40 ml IV UD PRN PRN Reason: SALINE FLUSH STROKE Vital Signs/Narrative: Vital Signs Temp Pulse Resp BP BP Pulse Ox 02/21/19 07:32 81 02/21/19 07:00 98.9 F 80 12 107/65 98 02/21/19 06:56 80 12 98 02/21/19 06:45 111/63 02/21/19 06:30 100/65 02/21/19 06:15 84/56 L 02/21/19 06:00 80 12 83/50 L 97 02/21/19 05:00 83 14 88/54 L 88/58 L 97 02/21/19 04:45 88/58 L 02/21/19 04:30 88/57 L 02/21/19 04:15 86/55 L 02/21/19 04:00 83 13 114/63 97 Medical Necessity - Tobacco Use Smoking Status: Former smoker Assessment/Plan All Active Problems (Last Reviewed 02/19/19 @ 00:13 by Stew Aldrich MD) Septic shock (Acute) Summary: 69-year-old male with multiple comorbidities, long-term resident, admitted on 02/18/19 from the long-term with hypotension and fever and has been managed as septic shock. 1. MRSA Septic shock secondary to infected hemodialysis catheter, improving s/p HD catheter removal(02/19/19) HD catheter tip positive for MRSA, Blood chest positive for MRSA Patient is improving clinically, still on vasopressors On IV vancomycin and Zosyn Will trend CBCD, wean off pressors for map more than 65 2. MRSA bacteremia, 2D echo showed no valvular lesions, repeat blood cultures pending ID consulted 3. Acute metabolic encephalopathy secondary to #1 and #2, improving, continue to monitor 4. ESRD on hemodialysis, -W-, last dialyzed on Friday s/p HD removal, last dialyzed via left arm AV fistula Next dialysis will be on Friday 5. Type II DM, controlled, continue on ISS with blood glucose checks. 6. Chronic atrial fibrillation, in NSR now, off warfarin for now, INR is 1.5 s/p 2 units FFPs on 02/19/19. Will resume warfarin if there are no procedures planned 7. Lactic acidosis secondary to hypotension and hypoxia, resolving 8. Chronic thrombocytopenia, platelet count now 84, down from 94 Hold off SCDs on account of acute on chronic thrombocytopenia 9. Rest of his chronic medical problems including COPD, chronic diastolic CHF, morbid obesity, pulmonary hypertension all remain unchanged for now but complicates his care. 10. DVT ppx- SCDs; off heparin on account of thrombocytopenia Code Visit Inpatient E&M: 52519 Subs Hosp L2
--- NOTE | 2019-02-21 07:45 | PCM.PN.SRG ---
Patient Problems: Active and Suspected Problems (Last Reviewed 02/19/19 @ 00:13 by Stew Aldrich MD) Septic shock (Acute) Subjective: Patient still on 10 mcg of levo, per nursing was able to state his name and he was at [facility], this morning patient is sleeping - Physical Exam Vitals/I&O's: Vital Signs Temp Pulse Resp BP Pulse Ox 98.9 F 81 12 107/65 98 02/21/19 07:00 02/21/19 07:32 02/21/19 07:00 02/21/19 07:00 02/21/19 07:00 Oxygen Flow Rate (L/min) 3 Oxygen Delivery Method Nasal Cannula Weight: 307 lb 1.663 oz Body Mass Index (BMI) 50.1 Finger Stick Blood Glucose 145 Intake and Output for Last 24 Hours 02/19/19 02/20/19 02/21/19 23:59 23:59 23:59 Intake Total 1981.85 / 2028.75 977.55 / 996.35 159.49 / 159.49 Output Total 3601 / 3611 0 / 0 Balance -1619.15 / -1582.25 967.55 / 986.35 159.49 / 159.49 General: No apparent distress HEENT: Atraumatic Abdomen: Soft, Non Tender, Non-Distended Extremities: - - Thrill in left upper arm fistula Skin: - - Previous right tunneled dialysis catheter site, clean dry and intact., No purulent drainage Microbiology Past 72 Hours 02/19/19 19:30 Other - Dialysis/Fistula Miscellaneous Culture - Preliminary Staphylococcus aureus 02/19/19 19:30 Other - Dialysis/Fistula Gram Stain - Final 02/18/19 18:55 Blood Culture (Wb) - Venous Bacteria Detection (PCR) - Final Meth. resistant Staph. aureus 02/18/19 18:55 Blood Culture (Wb) - Venous Blood Culture - Preliminary Meth. resistant Staph. aureus 02/18/19 18:55 Blood Culture (Wb) - Venous Blood Culture - Preliminary 02/18/19 19:55 Mucosa - Nasopharyngeal Influenza Types A,B Direct FA (FILIBERTO) - Final Laboratory Results 02/20/19 11:16: POC Glucose 133 H 02/20/19 18:15: POC Glucose 129 H 02/21/19 00:45: POC Glucose 168 H 02/21/19 02:57: POC Glucose 126 H 02/21/19 04:00: WBC 8.6, RBC 4.27 L, Hgb 12.4 L, Hct 41.2, MCV 96.5 H, MCH 29.0, MCHC 30.1 L, RDW Std Deviation 62.2 H, RDW Coeff of Dixie 17.3 H, Plt Count 84 L, MPV 11.5, Immature Gran % (Auto) 0.500, Neut % (Auto) 83.0 H, Lymph % (Auto) 4.7 L, [place] % (Auto) 9.3, Eos % (Auto) 2.3, Baso % (Auto) 0.2, Absolute Neuts (auto) 7.1, Absolute Lymphs (auto) 0.40 L, Nucleated RBC % 0 02/21/19 04:00: Sodium 135 L, Potassium 4.1, Chloride 98, Carbon Dioxide 30.0, Anion Gap 7, BUN 62 H, Creatinine 6.27 H, Estim Creat Clear Calc 10.03, Est GFR (MDRD) Af Amer 12 L, Est GFR (MDRD) Non-Af 10 L, BUN/Creatinine Ratio 9.9 L, Glucose 139 H, Calcium 8.6, Total Bilirubin 0.70, AST 42 H, ALT 40, Alkaline Phosphatase 111, Total Protein 6.8, Albumin 2.6 L, Globulin 4.2, Albumin/Globulin Ratio 0.6 L 02/21/19 06:30: POC Glucose 127 H Current Medications Acetaminophen (Tylenol) 650 mg RECTAL Q4H PRN PRN PRN Reason: Pain Score 1-10/Temp > 100.7 F Last Admin: 02/19/19 23:46 Dose: 650 mg Documented by: Albuterol/Ipratropium (Duoneb) 3 ml INHALATION Q6H.RT [facility] Last Admin: 02/21/19 06:56 Dose: 3 ml Documented by: Bisacodyl (Dulcolax) 5 mg PO DAILY PRN PRN PRN Reason: Constipation Budesonide (Pulmicort Aerosol) 0.5 mg INHALATION Q12H.RT [facility] Last Admin: 02/21/19 06:56 Dose: 0.5 mg Documented by: Calcium Acetate (Phoslo Gel Cap) 1,334 mg PO BIDCM [facility] Last Admin: 02/20/19 18:18 Dose: 1,334 mg Documented by: Glucagon () 1 mg IM .X1 PRN PRN Reason: Hypoglycemia Heparin Sodium (Porcine) () 2,500 units IV UD PRN PRN Reason: Dialysis Cath Heparin Flush Piperacillin Sod/Tazobactam (Sod 3.375 gm/ Sodium Chloride) 50 mls @ 12.5 mls/hr IV Q12 [facility] Last Infusion: 02/21/19 03:10 Dose: Infused Documented by: Pantoprazole Sodium 40 mg/ (Sodium Chloride) 110 mls @ 330 mls/hr IV Q24 [facility] Last Infusion: 02/20/19 10:35 Dose: Infused Documented by: Vancomycin IV Pharmacy to Dose (1,500 ea/ Sodium Chloride) 500 mls @ 250 mls/hr IV PRN PRN; Protocol Dextrose (Dextrose 10%-Water) 250 mls @ 999 mls/hr IV X1 PRN; Protocol PRN Reason: HYPOGLYCEMIA Sodium Chloride () 250 mls @ 15 mls/hr IV .[id number] PRN PRN Reason: Saline Flush Norepinephrine Bitartrate 8 mg (/ Sodium Chloride) 250 mls @ 9.375 mls/hr CONT INF .[id number] [facility]; Protocol Last Titration: 02/21/19 07:00 Dose: 10 mcg/min, 18.8 mls/hr Documented by: Insulin Human Lispro (Humalog Kwikpen (Bkc)) 0 unit SC Q6 [facility]; Protocol Last Admin: 02/21/19 07:03 Dose: Not Given Documented by: Midodrine (Proamatine) 10 mg PO BID [facility] Last Admin: 02/20/19 21:50 Dose: 10 mg Documented by: Ondansetron HCl (Zofran) 4 mg IV Q8H PRN PRN PRN Reason: NAUSEA/VOMITING Sodium Chloride () 10 ml IV UD PRN PRN Reason: Dialysis Catheter Flush Sodium Chloride () 10 - 40 ml IV UD PRN PRN Reason: SALINE FLUSH Medical Necessity - Tobacco Use Smoking Status: Former smoker Assessment/Plan All Active Problems (Last Reviewed 02/19/19 @ 00:13 by Stew Aldrich MD) Septic shock (Acute) 69-year-old male with septic shock, MRSA blood culture, end-stage renal disease, infected tunneled right IJ dialysis catheter that is post removal, left arm fistula?tortuous but able to be used yesterday for dialysis, supratherapeutic INR?resolved 1. Continue to try to wean levo. Hopefully patient will be able to be dialyzed again Friday with his left upper extremity AV fistula. continue to monitor, will place another tunnelled catheter after blood cultures negative. Saige Bennett M.D. Pager: [phone] [facility] [address] [place] [address], [facility], [address] [place] [id number] Office: [phone] Code Visit Inpatient E&M: 14512 Subs Hosp L1
[2019-02-21] MEDS: Calcium Acetate 667 MG Capsule 1334 MG PO ×2 (09:55→17:12)
[2019-02-21] MEDS: Midodrine HCl 5 MG Tablet 10 MG PO ×2 (09:59→21:42)
[2019-02-21 11:20] LABS: Bedside Glucose 172 mg/dL (70-110)
[2019-02-21] MEDS: Insulin Lispro 100 UNIT/ML INSULN.PEN SC ×2 (12:36→17:11)
[2019-02-21 17:20] LABS: Bedside Glucose 179 mg/dL (70-110)
[2019-02-22] VITALS (54 sets, daily range): BP systolic 78–138; BP diastolic 48–94; PULSE 81–108; RESP 13–31; TEMP 36.1–37.1; O2SAT 93–99
[2019-02-22 00:46] LABS: Bedside Glucose 149 mg/dL (70-110)
[2019-02-22 04:39] LABS: Vancomycin, Random Level 17.6 ug/mL (0.0-15.0)
[2019-02-22] MEDS: Ipratropium/Albuterol Sulfate 3 ML AMPUL.NEB INHALATION ×3 (06:34→18:44)
[2019-02-22] MEDS: Budesonide Respules 0.5 MG/2 ML AMPUL.NEB. INHALATION ×2 (06:34→18:44)
--- NOTE | 2019-02-22 06:40 | PN_ITS ---
Subjective: The patient was seen and examined at the bedside this morning. Events from the last 24 hours have been reviewed. The patient is currently afebrile, but remains on Levophed at 10 mcg/min to maintain hemodynamic stability. The patient is currently maintaining appropriate oxygen saturations on 3 L/min. He is currently documented to be overall net +2.2 L for the hospital admission. Hemodialysis is scheduled for this morning. The patient currently denies the presence of dyspnea, cough, abdominal or chest pain. Objective: The patient's most recent lab work, culture data and imaging studies have all been personally reviewed. Surface echocardiogram dated February 20 was notable for normal LV size and function with an ejection fraction of 65%. The RV was severely dilated with moderate global RV systolic dysfunction. Right ventricular systolic pressure was estimated to be 53 mmHg. Blood cultures dated February 18 were positive for MRSA. General: No apparent distress, Lethargic, - - Morbidly obese. HEENT: Atraumatic, PERRLA, Normocephalic Oral: No Gingival or Mucosal Lesions/ Ulcerations Neck: Supple, No Nodes, Trachea Midline Lungs: No rhonchi, No wheeze, No rales, Diminished Cardiovascular: Normal S1, Normal S2, No murmurs, Irregular Rate Abdomen: Bowel Sounds Present, Soft, Non Tender, Obese Extremities: No clubbing, No cyanosis, No edema, Diminished Peripheral Pulses Skin: - - Lower extremity pretibial venous stasis dermatitis Musculoskeletal: No Muscle Wasting Lymphatic: No Cervical, Supraclavicular, or Inguinal Adenopathy Neurological: Neuro grossly intact Psych/Mental Status: Flat Affect Vital Signs Temp Pulse Resp BP Pulse Ox 97.8 F 82 18 110/64 98 02/22/19 00:00 02/22/19 06:35 02/22/19 06:35 02/22/19 06:00 02/22/19 06:35 Oxygen Flow Rate (L/min) 3 Oxygen Delivery Method Nasal Cannula Weight: 311 lb 15.265 oz Body Mass Index (BMI) 50.1 Finger Stick Blood Glucose 145 Intake and Output for Last 24 Hours 02/20/19 02/21/19 02/22/19 23:59 23:59 23:59 Intake Total 977.55 / 996.35 887.33 / 906.13 259.10 / 259.10 Output Total 350 / 350 0 / 0 Balance 967.55 / 986.35 537.33 / 556.13 259.10 / 259.10 Labs (Last 48 Hours) 02/20/19 02/20/19 02/20/19 03:05 11:16 18:15 WBC RBC Hgb Hct MCV MCH MCHC RDW Std Deviation RDW Coeff of Dixie Plt Count MPV Immature Gran % (Auto) Neut % (Auto) Lymph % (Auto) [place] % (Auto) Eos % (Auto) Baso % (Auto) Absolute Neuts (auto) Absolute Lymphs (auto) Nucleated RBC % Differential Comment SCANNED Sodium Potassium Chloride Carbon Dioxide Anion Gap BUN Creatinine Estim Creat Clear Calc Est GFR (MDRD) Af Amer Est GFR (MDRD) Non-Af BUN/Creatinine Ratio Glucose Calcium Total Bilirubin AST ALT Alkaline Phosphatase Total Protein Albumin Globulin Albumin/Globulin Ratio Random Vancomycin POC Glucose 133 H 129 H 02/21/19 02/21/19 02/21/19 00:45 02:57 04:00 WBC 8.6 RBC 4.27 L Hgb 12.4 L Hct 41.2 MCV 96.5 H MCH 29.0 MCHC 30.1 L RDW Std Deviation 62.2 H RDW Coeff of Dixie 17.3 H Plt Count 84 L MPV 11.5 Immature Gran % (Auto) 0.500 Neut % (Auto) 83.0 H Lymph % (Auto) 4.7 L [place] % (Auto) 9.3 Eos % (Auto) 2.3 Baso % (Auto) 0.2 Absolute Neuts (auto) 7.1 Absolute Lymphs (auto) 0.40 L Nucleated RBC % 0 Differential Comment Sodium Potassium Chloride Carbon Dioxide Anion Gap BUN Creatinine Estim Creat Clear Calc Est GFR (MDRD) Af Amer Est GFR (MDRD) Non-Af BUN/Creatinine Ratio Glucose Calcium Total Bilirubin AST ALT Alkaline Phosphatase Total Protein Albumin Globulin Albumin/Globulin Ratio Random Vancomycin POC Glucose 168 H 126 H 02/21/19 02/21/19 02/21/19 04:00 06:30 11:18 WBC RBC Hgb Hct MCV MCH MCHC RDW Std Deviation RDW Coeff of Dixie Plt Count MPV Immature Gran % (Auto) Neut % (Auto) Lymph % (Auto) [place] % (Auto) Eos % (Auto) Baso % (Auto) Absolute Neuts (auto) Absolute Lymphs (auto) Nucleated RBC % Differential Comment Sodium 135 L Potassium 4.1 Chloride 98 Carbon Dioxide 30.0 Anion Gap 7 BUN 62 H Creatinine 6.27 H Estim Creat Clear Calc 10.03 Est GFR (MDRD) Af Amer 12 L Est GFR (MDRD) Non-Af 10 L BUN/Creatinine Ratio 9.9 L Glucose 139 H Calcium 8.6 Total Bilirubin 0.70 AST 42 H ALT 40 Alkaline Phosphatase 111 Total Protein 6.8 Albumin 2.6 L Globulin 4.2 Albumin/Globulin Ratio 0.6 L Random Vancomycin POC Glucose 127 H 172 H 02/21/19 02/22/19 02/22/19 16:59 00:38 04:00 WBC RBC Hgb Hct MCV MCH MCHC RDW Std Deviation RDW Coeff of Diixe Plt Count MPV Immature Gran % (Auto) Neut % (Auto) Lymph % (Auto) [place] % (Auto) Eos % (Auto) Baso % (Auto) Absolute Neuts (auto) Absolute Lymphs (auto) Nucleated RBC % Differential Comment Sodium Potassium Chloride Carbon Dioxide Anion Gap BUN Creatinine Estim Creat Clear Calc Est GFR (MDRD) Af Amer Est GFR (MDRD) Non-Af BUN/Creatinine Ratio Glucose Calcium Total Bilirubin AST ALT Alkaline Phosphatase Total Protein Albumin Globulin Albumin/Globulin Ratio Random Vancomycin 17.6 H POC Glucose 179 H 149 H Microbiology 02/19/19 19:30 Other - Dialysis/Fistula Miscellaneous Culture - Final Meth. resistant Staph. aureus 02/19/19 19:30 Other - Dialysis/Fistula Gram Stain - Final 02/18/19 18:55 Blood Culture (Wb) - Venous Blood Culture - Final Staphylococcus aureus 02/18/19 18:55 Blood Culture (Wb) - Venous Bacteria Detection (PCR) - Final Meth. resistant Staph. aureus 02/18/19 18:55 Blood Culture (Wb) - Venous Blood Culture - Final Meth. resistant Staph. aureus Clinical Impression(s) from Imaging Studies Chest X-Ray 02/18/19 19:45 IMPRESSION: Cardiomegaly with pulmonary vascular prominence. Electronically Signed: Guanako Flores DO at 20:04 EST Tel [phone], Service support , Brain CT 02/19/19 04:08 IMPRESSION: No acute intracranial abnormality. Chronic changes as above. ASPECT 10. Individualized dose optimization techniques were used for this CT. at 0423 Reported and signed by: Ashok Mead MD N.B. : The above information has been verbally conveyed by Ashok Mead MD to Dr. Valdemar MD, on 02/19/2019 04:27:49 (ET). Electronically Signed: Ashok Mead MD at 4:21 EST Tel , Service support , Head/Neck CTA 02/19/19 04:08 IMPRESSION: Severe bilateral distal CCA into carotid bulb calcific plaque contributing to 20% stenosis on the right and 60% stenosis on the left. No dissection. Severe amounts of calcific plaque in the intracranial portion of the left vertebral artery. No stenosis or aneurysm perceived. No occlusion identified. Individualized dose optimization techniques were used for this CT. at 0456 Reported and signed by: Ashok Mead MD Electronically Signed: Ashok Mead MD at 4:58 EST Tel , Service support , ADDENDUM: 02/19/19 0508 IMPRESSION: Severe bilateral distal CCA into carotid bulb calcific plaque contributing to 20% stenosis on the right and 60% stenosis on the left. No dissection. Severe amounts of calcific plaque in the intracranial portion of the left vertebral artery. No stenosis or aneurysm perceived. No occlusion identified. Individualized dose optimization techniques were used for this CT. at 0459 Reported and signed by: Ashok Mead MD N.B. : The above information has been verbally conveyed by Ashok Mead MD to Dr. Valdemar MD, on 02/19/2019 05:01:40 (ET). Electronically Signed: Ashok Mead MD at 4:58 EST Tel , Service support , Medical Necessity - Tobacco Use Smoking Status: Former smoker Assessment/Plan All Active Problems (Last Reviewed 02/19/19 @ 00:13 by Stew Aldrich MD) Septic shock (Acute) RECOMMENDATIONS: 1. Continue to wean Levophed to maintain a mean arterial pressure at or above 65 mmHg. 2. Okay to discontinue Zosyn. Vancomycin will be continued. 3. Continue to hold Coumadin until need for temporary dialysis line is decided upon. 4. Continue bronchodilators. 5. Wean supplemental oxygen as tolerated. IMPRESSIONS: 1. Septic shock secondary to MRSA bacteremia Clinical suspicion for MRSA bacteremia secondary to hemodialysis line. Patient has grown blood cultures within 12 hours with MRSA indicating high bacterial burden at this time. Repeat blood cultures are currently pending. Zosyn can be discontinued from my perspective. We will plan to continue vancomycin accordingly. Wean Levophed as tolerated to maintain a mean arterial pressure at or above 65 mmHg. 2. Metabolic encephalopathy secondary to #1 Altered mentation likely secondary to underlying infectious etiology. Continue current supportive measures with antibiotics and vasopressor support to maintain hemodynamic stability. Avoid sedating medications. 3. Coagulopathy secondary to Coumadin secondary to A. fib The patient presented with a supratherapeutic INR, which was reversed pharmacologically. Continue to hold Coumadin for now, pending clinical stability. Unclear if the patient will require a temporary hemodialysis line in the near future. 4. End-stage renal disease on hemodialysis Continue hemodialysis support per nephrology recommendations. Unclear if the patient will require reinsertion of a temporary hemodialysis line. The patient does have a known, tortuous fistula site. 5. Uncontrolled diabetes mellitus Continue sliding scale insulin coverage as ordered. 6. Morbid obesity/peripheral artery disease/COPD/chronic diastolic CHF/history of osteomyelitis/secondary pulmonary hypertension Complicates care, management, recovery and prognosis. Physical therapy evaluation pending. TIME: 35 minutes of critical care time, independent of procedures, was spent addressing the patient's septic shock, MRSA bacteremia, metabolic encephalopathy, atrial fibrillation, end-stage renal disease, review of all data and collaboration with the care team. ([id number]) Code Visit 9xxxx: [id number] Critical care first hour
[2019-02-22] MEDS: Insulin Lispro 100 UNIT/ML INSULN.PEN SC ×2 (07:12→18:12)
[2019-02-22 07:16] LABS: Bedside Glucose 164 mg/dL (70-110)
--- NOTE | 2019-02-22 07:28 | PN_ITS ---
Patient Problems: Active and Suspected Problems (Last Reviewed 02/19/19 @ 00:13 by Stew Aldrich MD) Septic shock (Acute) Reason for Visit: MRSA septic shock secondary to infected hemodialysis catheter Subjective: Patient is a 69-year-old male with multiple comorbidities including end-stage renal disease on hemodialysis admitted from a correction with fever. An assessment of MRSA septic shock secondary to infected hemodialysis catheter made. Admitted to the intensive care unit for further management Objective: GENERAL: Somewhat lethargic HEENT: Atraumatic; EYES; Anicteric, Normal Conjunctiva NECK; supple, normal thyroid, RESPIRATORY: Diminished to auscultation CARDIOVASCULAR: Regular S1 S2, GI: soft, normoactive bowel sounds, : No Renal angle tenderness; EXTREMITIES: No cyanosis, no clubbing, MUSCULOSKELETAL: no muscle waisting NEURO: no lateralizing signs. SKIN: Bruising left arm PSYCH; significantly flat affect Vitals/I&O's: Vital Signs Temp Pulse Resp BP Pulse Ox 97.8 F 82 18 110/64 98 02/22/19 00:00 02/22/19 06:35 02/22/19 06:35 02/22/19 06:00 02/22/19 06:35 Oxygen Flow Rate (L/min) 3 Oxygen Delivery Method Nasal Cannula Weight: 141.5 kg Body Mass Index (BMI) 50.1 Finger Stick Blood Glucose 145 Intake and Output for Last 24 Hours 02/20/19 02/21/19 02/22/19 23:59 23:59 23:59 Intake Total 977.55 / 996.35 887.33 / 906.13 259.10 / 259.10 Output Total 350 / 350 0 / 0 Balance 967.55 / 986.35 537.33 / 556.13 259.10 / 259.10 Microbiology Past 72 Hours 02/19/19 19:30 Other - Dialysis/Fistula Miscellaneous Culture - Final Meth. resistant Staph. aureus 02/19/19 19:30 Other - Dialysis/Fistula Gram Stain - Final 02/18/19 18:55 Blood Culture (Wb) - Venous Blood Culture - Final Staphylococcus aureus 02/18/19 18:55 Blood Culture (Wb) - Venous Bacteria Detection (PCR) - Final Meth. resistant Staph. aureus 02/18/19 18:55 Blood Culture (Wb) - Venous Blood Culture - Final Meth. resistant Staph. aureus Laboratory Results 02/21/19 11:18: POC Glucose 172 H 02/21/19 16:59: POC Glucose 179 H 02/22/19 00:38: POC Glucose 149 H 02/22/19 04:00: Random Vancomycin 17.6 H 02/22/19 07:09: POC Glucose 164 H Current Medications Acetaminophen (Tylenol) 650 mg RECTAL Q4H PRN PRN PRN Reason: Pain Score 1-10/Temp > 100.7 F Last Admin: 02/19/19 23:46 Dose: 650 mg Documented by: Albuterol/Ipratropium (Duoneb) 3 ml INHALATION Q6H.RT [facility] Last Admin: 02/22/19 06:34 Dose: 3 ml Documented by: Bisacodyl (Dulcolax) 5 mg PO DAILY PRN PRN PRN Reason: Constipation Budesonide (Pulmicort Aerosol) 0.5 mg INHALATION Q12H.RT [facility] Last Admin: 02/22/19 06:34 Dose: 0.5 mg Documented by: Calcium Acetate (Phoslo Gel Cap) 1,334 mg PO BIDCM [facility] Last Admin: 02/21/19 17:12 Dose: 1,334 mg Documented by: Glucagon () 1 mg IM .X1 PRN PRN Reason: Hypoglycemia Heparin Sodium (Porcine) () 2,500 units IV UD PRN PRN Reason: Dialysis Cath Heparin Flush Piperacillin Sod/Tazobactam (Sod 3.375 gm/ Sodium Chloride) 50 mls @ 12.5 mls/hr IV Q12 [facility] Last Infusion: 02/22/19 01:56 Dose: Infused Documented by: Pantoprazole Sodium 40 mg/ (Sodium Chloride) 110 mls @ 330 mls/hr IV Q24 [facility] Last Infusion: 02/21/19 10:34 Dose: Infused Documented by: Vancomycin IV Pharmacy to Dose (1,500 ea/ Sodium Chloride) 500 mls @ 250 mls/hr IV PRN PRN; Protocol Dextrose (Dextrose 10%-Water) 250 mls @ 999 mls/hr IV X1 PRN; Protocol PRN Reason: HYPOGLYCEMIA Sodium Chloride () 250 mls @ 15 mls/hr IV .[id number] PRN PRN Reason: Saline Flush Norepinephrine Bitartrate 8 mg (/ Sodium Chloride) 250 mls @ 9.375 mls/hr CONT INF .[id number] [facility]; Protocol Last Titration: 02/22/19 06:00 Dose: 10 mcg/min, 18.8 mls/hr Documented by: Insulin Human Lispro (Humalog Kwikpen (Bkc)) 0 unit SC Q6 [facility]; Protocol Last Admin: 02/22/19 07:12 Dose: 1 u Documented by: Midodrine (Proamatine) 10 mg PO BID [facility] Last Admin: 02/21/19 21:42 Dose: 10 mg Documented by: Ondansetron HCl (Zofran) 4 mg IV Q8H PRN PRN PRN Reason: NAUSEA/VOMITING Sodium Chloride () 10 ml IV UD PRN PRN Reason: Dialysis Catheter Flush Sodium Chloride () 10 - 40 ml IV UD PRN PRN Reason: SALINE FLUSH STROKE Vital Signs/Narrative: Vital Signs Pulse Resp BP Pulse Ox 02/22/19 06:35 82 18 98 02/22/19 06:00 81 13 110/64 98 02/22/19 05:00 87 18 123/67 H 97 02/22/19 04:00 83 17 122/65 H 96 Medical Necessity - Tobacco Use Smoking Status: Former smoker Assessment/Plan All Active Problems (Last Reviewed 02/19/19 @ 00:13 by Stew Aldrich MD) Septic shock (Acute) Patient is a 69-year-old male with multiple comorbidities including end-stage renal disease on hemodialysis admitted from a correction with fever. An assessment of MRSA septic shock secondary to infected hemodialysis catheter made. Admitted to the intensive care unit for further management 1. MRSA septic shock secondary to infected dialysis catheter ?Patient dialysis catheter was removed on 02/19/2019. Culture tip positive for MRSA. Patient blood cultures also came back positive for MRSA currently on Zosyn. Patient also remains hypotensive and is on Levophed. Currently being managed in the ICU as part of patient management had a 2D echo which did not demonstrate any valvular lesions. Repeat cultures were obtained results pending 2. Acute metabolic encephalopathy ?Secondary to septic shock as a result of an infected dialysis catheter management as discussed above 3. End-stage renal disease ?On hemodialysis Wednesdays and Fridays. Patient currently being dialyzed through an AV fistula 4. Diabetes mellitus type 2 With complications including diabetic nephropathy (end-stage renal disease and). Patient is currently on Accu-Cheks before meals and at bedtime with sliding scale coverage 5. Chronic paroxysmal A. fib ?Patient in sinus rhythm on Coumadin INR was elevated on admission 4.1 down to 1.5 as of 02/22/2019, Coumadin held in anticipation of possible perma catheter placement 6. Diabetic neuropathy ?Patient is on gabapentin with patient being lethargic gabapentin currently on hold. 7. Thrombocytopenia ?Chronic monitoring with daily CBC 8. Chronic congestive heart failure with preserved ejection fraction ?Currently compensated 9. Pulmonary hypertension ?Patient is on supplemental oxygen 10. Morbid obesity with BMI of 50.4 ?Plan is to consult patient on lifestyle modification as well as weight loss. Patient may be a candidate for gastric bypass given his underlying comorbidities including diabetes mellitus type 2 11. Obstructive sleep apnea ?On CPAP at night 12. GERD ?On PPI 13. DVT prophylaxis ?patient is on Coumadin which is currently on hold in anticipation of possible PermCath placement. Neither Coumadin or Lovenox could be initiated given patient low platelet counts. Currently on SCDs Code Visit Inpatient E&M: 81852 [facility] Hosp L3
--- NOTE | 2019-02-22 09:23 | CASEMGMT ---
Social Work Note Pt is listed as being from [facility] and is able to return when medically cleared. SW faxed updated clinicals to [facility]. Plan: [facility] once medically cleared Chelsea Brown [employer], [employer]
[2019-02-22 11:55] LABS: Bedside Glucose 126 mg/dL (70-110)
--- NOTE | 2019-02-22 12:39 | DIALYSIS ---
Hemodialysis x 4 hours completed. Pt tolerated tx well. Fluid balance -4000ml. Thida pulled. Hemostasis achieved. Dressing applied. See tx sheet for details. Report given to IMAN Atkins. Pt stable
[2019-02-22] MEDS: Heparin 10,000 UNITS/10 ML Vial 5000 UNITS IV (12:46)
[2019-02-22] MEDS: Calcium Acetate 667 MG Capsule 1334 MG PO ×2 (12:46→18:12)
[2019-02-22] MEDS: Midodrine HCl 5 MG Tablet 10 MG PO ×2 (12:47→23:03)
--- NOTE | 2019-02-22 13:34 | PN_ITS ---
Patient Problems: Active and Suspected Problems (Last Reviewed 02/19/19 @ 00:13 by Stew Aldrich MD) Septic shock (Acute) Subjective: He denies any shortness of breath or chest pain he tolerated dialysis well with no complaints. - Physical Exam Vitals/I&O's: Vital Signs Temp Pulse Resp BP Pulse Ox 98.1 F 103 H 20 H 117/67 94 02/22/19 10:00 02/22/19 13:16 02/22/19 13:16 02/22/19 11:30 02/22/19 11:30 Oxygen Flow Rate (L/min) 3 Oxygen Delivery Method Nasal Cannula Weight: 141.5 kg Body Mass Index (BMI) 50.1 Finger Stick Blood Glucose 145 Intake and Output for Last 24 Hours 02/20/19 02/21/19 02/22/19 23:59 23:59 23:59 Intake Total 977.55 / 996.35 887.33 / 906.13 361.56 / 361.56 Output Total 350 / 350 0 / 0 Balance 967.55 / 986.35 537.33 / 556.13 361.56 / 361.56 General: Alert, Oriented x3, Cooperative HEENT: Atraumatic, PERRLA, EOMI, Normocephalic Neck: Supple, No JVD, Negative Carotid Bruits Lungs: Clear to auscultation, Normal air movement Cardiovascular: Regular rate, No murmurs Abdomen: Bowel Sounds Present, Soft, Non Tender, Obese Extremities: No edema, Capillary Refill Less than 3 Seconds Skin: No rashes, No breakdown Musculoskeletal: No Tenderness to Palpation of Joints or Extremities Neurological: Cranial nerves II-XII grossly intact Psych/Mental Status: Normal Affect, Appropriate Comment: Left arm torturous AV fistula good thrill and bruit Microbiology Past 72 Hours 02/20/19 06:30 Blood Culture (Wb) - Femoral Artery Blood Culture - Preliminary No growth in 48 hours. 02/19/19 19:30 Other - Dialysis/Fistula Miscellaneous Culture - Final Meth. resistant Staph. aureus 02/19/19 19:30 Other - Dialysis/Fistula Gram Stain - Final 02/18/19 18:55 Blood Culture (Wb) - Venous Blood Culture - Final Staphylococcus aureus 02/18/19 18:55 Blood Culture (Wb) - Venous Bacteria Detection (PCR) - Final Meth. resistant Staph. aureus 02/18/19 18:55 Blood Culture (Wb) - Venous Blood Culture - Final Meth. resistant Staph. aureus Laboratory Results 02/21/19 16:59: POC Glucose 179 H 02/22/19 00:38: POC Glucose 149 H 02/22/19 04:00: Random Vancomycin 17.6 H 02/22/19 07:09: POC Glucose 164 H 02/22/19 11:46: POC Glucose 126 H Current Medications Acetaminophen (Tylenol) 650 mg RECTAL Q4H PRN PRN PRN Reason: Pain Score 1-10/Temp > 100.7 F Last Admin: 02/19/19 23:46 Dose: 650 mg Documented by: Albuterol/Ipratropium (Duoneb) 3 ml INHALATION Q6H.RT [facility] Last Admin: 02/22/19 13:16 Dose: 3 ml Documented by: Bisacodyl (Dulcolax) 5 mg PO DAILY PRN PRN PRN Reason: Constipation Budesonide (Pulmicort Aerosol) 0.5 mg INHALATION Q12H.RT [facility] Last Admin: 02/22/19 06:34 Dose: 0.5 mg Documented by: Calcium Acetate (Phoslo Gel Cap) 1,334 mg PO BIDCM [facility] Last Admin: 02/22/19 12:46 Dose: 1,334 mg Documented by: Escitalopram Oxalate (Lexapro) 10 mg PO DAILY [facility] Glucagon () 1 mg IM .X1 PRN PRN Reason: Hypoglycemia Heparin Sodium (Porcine) () 2,500 units IV UD PRN PRN Reason: Dialysis Cath Heparin Flush Pantoprazole Sodium 40 mg/ (Sodium Chloride) 110 mls @ 330 mls/hr IV Q24 [facility] Last Admin: 02/22/19 12:47 Dose: 330 mls/hr Documented by: Vancomycin IV Pharmacy to Dose (1,500 ea/ Sodium Chloride) 500 mls @ 250 mls/hr IV PRN PRN; Protocol Dextrose (Dextrose 10%-Water) 250 mls @ 999 mls/hr IV X1 PRN; Protocol PRN Reason: HYPOGLYCEMIA Sodium Chloride () 250 mls @ 15 mls/hr IV .[id number] PRN PRN Reason: Saline Flush Norepinephrine Bitartrate 8 mg (/ Sodium Chloride) 250 mls @ 9.375 mls/hr CONT INF .[id number] [facility]; Protocol Last Titration: 02/22/19 11:30 Dose: 9 mcg/min, 16.9 mls/hr Documented by: Vancomycin HCl () 500 mg in 100 mls @ 100 mls/hr IV X1 ONE Stop: 02/22/19 15:59 Insulin Human Lispro (Humalog Kwikpen (Bkc)) 0 unit SC Q6 [facility]; Protocol Last Admin: 02/22/19 11:57 Dose: Not Given Documented by: Midodrine (Proamatine) 10 mg PO BID [facility] Last Admin: 02/22/19 12:47 Dose: 10 mg Documented by: Ondansetron HCl (Zofran) 4 mg IV Q8H PRN PRN PRN Reason: NAUSEA/VOMITING Sodium Chloride () 10 ml IV UD PRN PRN Reason: Dialysis Catheter Flush Sodium Chloride () 10 - 40 ml IV UD PRN PRN Reason: SALINE FLUSH Medical Necessity - Tobacco Use Smoking Status: Former smoker Assessment/Plan All Active Problems (Last Reviewed 02/19/19 @ 00:13 by Stew Aldrich MD) Septic shock (Acute) ESRD Anemia CKD MBD Septic shock Pulmonary edema tolerated well HD via avf today per HD RN Continue Friday dialysis. On pressors keep MAP more than 65. Continue binders monitor phosphorus Antibiotics as per primary
--- NOTE | 2019-02-22 13:37 | PN.SURG_ITS ---
Patient Problems: Active and Suspected Problems (Last Reviewed 02/19/19 @ 00:13 by Stew Aldrich MD) Septic shock (Acute) Subjective: Patient still on Levophed down to 9 mcg from 10 mcg, patient seems more awake than I have seen him previously, patient had dialysis total of 4 L with his left upper extremity fistula - Physical Exam Vitals/I&O's: Vital Signs Temp Pulse Resp BP Pulse Ox 98.1 F 103 H 20 H 117/67 94 02/22/19 10:00 02/22/19 13:16 02/22/19 13:16 02/22/19 11:30 02/22/19 11:30 Oxygen Flow Rate (L/min) 3 Oxygen Delivery Method Nasal Cannula Weight: 311 lb 15.265 oz Body Mass Index (BMI) 50.1 Finger Stick Blood Glucose 145 Intake and Output for Last 24 Hours 02/20/19 02/21/19 02/22/19 23:59 23:59 23:59 Intake Total 977.55 / 996.35 887.33 / 906.13 361.56 / 361.56 Output Total 350 / 350 0 / 0 Balance 967.55 / 986.35 537.33 / 556.13 361.56 / 361.56 General: Alert, Cooperative, No apparent distress Cardiovascular: Regular rate Abdomen: Soft, Non Tender, Non-Distended Psych/Mental Status: Flat Affect Microbiology Past 72 Hours 02/20/19 06:30 Blood Culture (Wb) - Femoral Artery Blood Culture - Preliminary No growth in 48 hours. 02/19/19 19:30 Other - Dialysis/Fistula Miscellaneous Culture - Final Meth. resistant Staph. aureus 02/19/19 19:30 Other - Dialysis/Fistula Gram Stain - Final 02/18/19 18:55 Blood Culture (Wb) - Venous Blood Culture - Final Staphylococcus aureus 02/18/19 18:55 Blood Culture (Wb) - Venous Bacteria Detection (PCR) - Final Meth. resistant Staph. aureus 02/18/19 18:55 Blood Culture (Wb) - Venous Blood Culture - Final Meth. resistant Staph. aureus Laboratory Results 02/21/19 16:59: POC Glucose 179 H 02/22/19 00:38: POC Glucose 149 H 02/22/19 04:00: Random Vancomycin 17.6 H 02/22/19 07:09: POC Glucose 164 H 02/22/19 11:46: POC Glucose 126 H Current Medications Acetaminophen (Tylenol) 650 mg RECTAL Q4H PRN PRN PRN Reason: Pain Score 1-10/Temp > 100.7 F Last Admin: 02/19/19 23:46 Dose: 650 mg Documented by: Albuterol/Ipratropium (Duoneb) 3 ml INHALATION Q6H.RT [facility] Last Admin: 02/22/19 13:16 Dose: 3 ml Documented by: Bisacodyl (Dulcolax) 5 mg PO DAILY PRN PRN PRN Reason: Constipation Budesonide (Pulmicort Aerosol) 0.5 mg INHALATION Q12H.RT [facility] Last Admin: 02/22/19 06:34 Dose: 0.5 mg Documented by: Calcium Acetate (Phoslo Gel Cap) 1,334 mg PO BIDCM [facility] Last Admin: 02/22/19 12:46 Dose: 1,334 mg Documented by: Escitalopram Oxalate (Lexapro) 10 mg PO DAILY [facility] Glucagon () 1 mg IM .X1 PRN PRN Reason: Hypoglycemia Heparin Sodium (Porcine) () 2,500 units IV UD PRN PRN Reason: Dialysis Cath Heparin Flush Pantoprazole Sodium 40 mg/ (Sodium Chloride) 110 mls @ 330 mls/hr IV Q24 [facility] Last Admin: 02/22/19 12:47 Dose: 330 mls/hr Documented by: Vancomycin IV Pharmacy to Dose (1,500 ea/ Sodium Chloride) 500 mls @ 250 mls/hr IV PRN PRN; Protocol Dextrose (Dextrose 10%-Water) 250 mls @ 999 mls/hr IV X1 PRN; Protocol PRN Reason: HYPOGLYCEMIA Sodium Chloride () 250 mls @ 15 mls/hr IV .[id number] PRN PRN Reason: Saline Flush Norepinephrine Bitartrate 8 mg (/ Sodium Chloride) 250 mls @ 9.375 mls/hr CONT INF .[id number] [facility]; Protocol Last Titration: 02/22/19 11:30 Dose: 9 mcg/min, 16.9 mls/hr Documented by: Vancomycin HCl () 500 mg in 100 mls @ 100 mls/hr IV X1 ONE Stop: 02/22/19 15:59 Insulin Human Lispro (Humalog Kwikpen (Bkc)) 0 unit SC Q6 [facility]; Protocol Last Admin: 02/22/19 11:57 Dose: Not Given Documented by: Midodrine (Proamatine) 10 mg PO BID [facility] Last Admin: 02/22/19 12:47 Dose: 10 mg Documented by: Ondansetron HCl (Zofran) 4 mg IV Q8H PRN PRN PRN Reason: NAUSEA/VOMITING Sodium Chloride () 10 ml IV UD PRN PRN Reason: Dialysis Catheter Flush Sodium Chloride () 10 - 40 ml IV UD PRN PRN Reason: SALINE FLUSH Medical Necessity - Tobacco Use Smoking Status: Former smoker Assessment/Plan All Active Problems (Last Reviewed 02/19/19 @ 00:13 by Stew Aldrich MD) Septic shock (Acute) 69-year-old male with septic shock, MRSA blood culture, end-stage renal disease, infected tunneled right IJ dialysis catheter that is post removal, left arm fistula?tortuous but able to be used yesterday for dialysis, supratherapeutic INR?resolved 1. Discussed with Dr. Rausch with nephrology, patient did tolerate dialysis with his left upper extremity fistula will hold off on a tunneled dialysis catheter currently. If patient is unable to tolerate dialysis with his fistula will plan to place. Saige Bennett M.D. Pager: [phone] [facility] [address] [place] [address], [address] [place] [address] Office: [phone]
[2019-02-22] MEDS: Vancomycin IV 500 MG/100 ML BAG 100 MG IV (14:28)
[2019-02-22] MEDS: Escitalopram Oxalate 10 MG Tablet PO (14:28)
--- NOTE | 2019-02-22 15:07 | PN.ID_ITS ---
Patient Problems: Active and Suspected Problems (Last Reviewed 02/19/19 @ 00:13 by Stew Aldrich MD) Septic shock (Acute) Subjective: C/o pain but unable to localize. On pressors, no fever. HD this AM via fistula. - Physical Exam Vitals/I&O's: Vital Signs Temp Pulse Resp BP Pulse Ox 98.7 F 106 H 18 126/73 H 18 02/22/19 12:00 02/22/19 14:00 02/22/19 14:00 02/22/19 14:00 02/22/19 14:00 Oxygen Flow Rate (L/min) 3 Oxygen Delivery Method Nasal Cannula Weight: 141.5 kg Body Mass Index (BMI) 50.1 Finger Stick Blood Glucose 145 Intake and Output for Last 24 Hours 02/20/19 02/21/19 02/22/19 23:59 23:59 23:59 Intake Total 977.55 / 996.35 887.33 / 906.13 510.51 / 510.51 Output Total 350 / 350 4000 / 4000 Balance 967.55 / 986.35 537.33 / 556.13 -3489.49 / -3489.49 General: Cooperative, No apparent distress Lungs: Clear to auscultation, Normal air movement Cardiovascular: Regular rate, Regular Rhythm Abdomen: Soft, Non Tender, Non-Distended Skin: No rashes Microbiology Past 72 Hours 02/20/19 06:30 Blood Culture (Wb) - Femoral Artery Blood Culture - Preliminary No growth in 48 hours. 02/19/19 19:30 Other - Dialysis/Fistula Miscellaneous Culture - Final Meth. resistant Staph. aureus 02/19/19 19:30 Other - Dialysis/Fistula Gram Stain - Final 02/18/19 18:55 Blood Culture (Wb) - Venous Blood Culture - Final Staphylococcus aureus 02/18/19 18:55 Blood Culture (Wb) - Venous Bacteria Detection (PCR) - Final Meth. resistant Staph. aureus 02/18/19 18:55 Blood Culture (Wb) - Venous Blood Culture - Final Meth. resistant Staph. aureus Laboratory Results 02/21/19 16:59: POC Glucose 179 H 02/22/19 00:38: POC Glucose 149 H 02/22/19 04:00: Random Vancomycin 17.6 H 02/22/19 07:09: POC Glucose 164 H 02/22/19 11:46: POC Glucose 126 H Current Medications Acetaminophen (Tylenol) 650 mg RECTAL Q4H PRN PRN PRN Reason: Pain Score 1-10/Temp > 100.7 F Last Admin: 02/19/19 23:46 Dose: 650 mg Documented by: Albuterol/Ipratropium (Duoneb) 3 ml INHALATION Q6H.RT [facility] Last Admin: 02/22/19 13:16 Dose: 3 ml Documented by: Bisacodyl (Dulcolax) 5 mg PO DAILY PRN PRN PRN Reason: Constipation Budesonide (Pulmicort Aerosol) 0.5 mg INHALATION Q12H.RT [facility] Last Admin: 02/22/19 06:34 Dose: 0.5 mg Documented by: Calcium Acetate (Phoslo Gel Cap) 1,334 mg PO BIDCM [facility] Last Admin: 02/22/19 12:46 Dose: 1,334 mg Documented by: Escitalopram Oxalate (Lexapro) 10 mg PO DAILY [facility] Last Admin: 02/22/19 14:28 Dose: 10 mg Documented by: Glucagon () 1 mg IM .X1 PRN PRN Reason: Hypoglycemia Heparin Sodium (Porcine) () 2,500 units IV UD PRN PRN Reason: Dialysis Cath Heparin Flush Pantoprazole Sodium 40 mg/ (Sodium Chloride) 110 mls @ 330 mls/hr IV Q24 [facility] Last Infusion: 02/22/19 14:00 Dose: Infused Documented by: Vancomycin IV Pharmacy to Dose (1,500 ea/ Sodium Chloride) 500 mls @ 250 mls/hr IV PRN PRN; Protocol Dextrose (Dextrose 10%-Water) 250 mls @ 999 mls/hr IV X1 PRN; Protocol PRN Reason: HYPOGLYCEMIA Sodium Chloride () 250 mls @ 15 mls/hr IV .[id number] PRN PRN Reason: Saline Flush Norepinephrine Bitartrate 8 mg (/ Sodium Chloride) 250 mls @ 9.375 mls/hr CONT INF .[id number] [facility]; Protocol Last Titration: 02/22/19 14:00 Dose: 7 mcg/min, 13.1 mls/hr Documented by: Vancomycin HCl () 500 mg in 100 mls @ 100 mls/hr IV X1 ONE Stop: 02/22/19 15:59 Last Admin: 02/22/19 14:28 Dose: 100 mls/hr Documented by: Insulin Human Lispro (Humalog Kwikpen (Bkc)) 0 unit SC Q6 [facility]; Protocol Last Admin: 02/22/19 11:57 Dose: Not Given Documented by: Midodrine (Proamatine) 10 mg PO BID [facility] Last Admin: 02/22/19 12:47 Dose: 10 mg Documented by: Ondansetron HCl (Zofran) 4 mg IV Q8H PRN PRN PRN Reason: NAUSEA/VOMITING Sodium Chloride () 10 ml IV UD PRN PRN Reason: Dialysis Catheter Flush Sodium Chloride () 10 - 40 ml IV UD PRN PRN Reason: SALINE FLUSH Medical Necessity - Tobacco Use Smoking Status: Former smoker Route of nutrition/ use of supplements: [] Nutritional Intake: [] IV Site: [] [place] Catheter: [] - Assessment/Plan Antibiotics: [] Assessment/Plan: [] Active and Suspected Problems (Last Reviewed 02/19/19 @ 00:13 by Stew Aldrich MD) Septic shock (Acute) Septic shock due to MRSA - suspected permacath as source. Line removed 02/19, pus seen during procedure. Echo showed no veg. Repeat bcx neg since 02/20. Cont vanc. Overall much improved, still on pressors. Wbc normal, fever resolved. Will follow, d/w nursing.
--- NOTE | 2019-02-22 16:23 | PCM.RX.CS ---
Consult Pharmacy has been consulted to manage selected antiobiotic: Vancomycin Type of Consult: Follow-up Suspected Infection: Sepsis Labs: Sodium 135 mmol/L (136-145) L 02/21/19 04:00 Potassium 4.1 mmol/L (3.5-5.1) 02/21/19 04:00 Chloride 98 mmol/L (98-107) 02/21/19 04:00 Carbon Dioxide 30.0 mmol/L (21.0-32.0) 02/21/19 04:00 Anion Gap 7 (5-15) 02/21/19 04:00 BUN 62 mg/dL (7-18) H 02/21/19 04:00 Creatinine 6.27 mg/dL (0.70-1.30) H 02/21/19 04:00 Est GFR (MDRD) Af Amer 12 mL/min (>60) L 02/21/19 04:00 Est GFR (MDRD) Non-Af 10 mL/min (>60) L 02/21/19 04:00 BUN/Creatinine Ratio 9.9 RATIO (10-20) L 02/21/19 04:00 Glucose 139 mg/dL (74-106) H 02/21/19 04:00 Random Vancomycin 17.6 ug/mL (0.0-15.0) H 02/22/19 04:00 Microbiology: Microbiology 02/20/19 06:30 Blood Culture (Wb) - Femoral Artery Blood Culture - Preliminary No growth in 48 hours. 02/19/19 19:30 Other - Dialysis/Fistula Miscellaneous Culture - Final Meth. resistant Staph. aureus 02/19/19 19:30 Other - Dialysis/Fistula Gram Stain - Final 02/18/19 18:55 Blood Culture (Wb) - Venous Blood Culture - Final Staphylococcus aureus 02/18/19 18:55 Blood Culture (Wb) - Venous Bacteria Detection (PCR) - Final Meth. resistant Staph. aureus 02/18/19 18:55 Blood Culture (Wb) - Venous Blood Culture - Final Meth. resistant Staph. aureus 02/18/19 19:55 Mucosa - Nasopharyngeal Influenza Types A,B Direct FA (FILIBERTO) - Final Weight used for dosin kg Goal Trough: 15-20 mcg/mL Pharmacy Plan for Drug Dosing: Pt is on MWF dialysis. Pre dialysis Vancomycin level on 12/16/19 was 17.6. Per policy pt will receive a x1 dose of Vancomycin 500mg after dialysis. Next random level will be with the morning labs on Fri02/24/19 Pharmacy Service will continue to monitor and adjust dosing as required. Follow-Up Labs: Trough Vancomycin - random level 02/24 @ 0400
[2019-02-22 17:35] LABS: Vancomycin, Random Level 23.9 ug/mL (0.0-15.0)
[2019-02-22 22:31] LABS: Bedside Glucose 182 mg/dL (70-110)
[2019-02-22 23:11] LABS: Bedside Glucose 122 mg/dL (70-110)
[2019-02-23] VITALS (49 sets, daily range): BP systolic 53–145; BP diastolic 40–100; PULSE 75–107; RESP 13–29; TEMP 35.9–36.8; O2SAT 92–100
[2019-02-23] MEDS: Ipratropium/Albuterol Sulfate 3 ML AMPUL.NEB INHALATION ×4 (01:08→18:43)
[2019-02-23 04:26] LABS: Absolute Lymphocyte Count 0.81 X10^3/uL (0.83-4.51); Absolute Neutrophil Count 4.9 X10^3/uL (2.0-7.7); Basophil# 0.03 X10^3/uL; Basophil% 0.4 % (0-1); Hematocrit 39.5 % (40-54); Lymphocyte # 0.81 X10^3/ul (4.0); Lymphocyte % 12.1 % (19-41); Mean Corp Hgb Conc 30.4 g/dL (32-36); Mean Corpuscular Hgb 29.1 pg (27.0-32.0); Mean Corpuscular Volume 95.9 fL (80-94); Mean Platelet Vol. 10.8 fl (6.2-12.0); Monocyte# 0.75 X10^3/uL; Monocyte% 11.2 % (0-10); NRBC Flagged by Analyzer 0.3 % (0-5); Neutrophil # 4.88 X10^3/uL (2.7-7.7); Neutrophil % 72.9 % (47-70); POSITIVE COUNT YES; Platelet Count 86 K/mm3 (150-450); RBC Distribution Width CV 17.2 % (11.6-14.6); RBC Distribution Width SD 61.2 fl (35.1-43.9); Red Blood Count 4.12 M/mm3 (4.6-6.2); White Blood Count 6.7 K/mm3 (4.4-11.0)
[2019-02-23 04:41] LABS: Anion Gap 7 (5-15); BUN 52 mg/dL (7-18); BUN/Creat Ratio 8.4 RATIO (10-20); Calcium,Total 8.7 mg/dL (8.5-10.1); Chloride 99 mmol/L (98-107); Creatinine, Serum 6.18 mg/dL (0.70-1.30); EST Glomerular Filtration Rate 10 mL/min (>60); Est Glom Filt Rate - Afr Amer 12 mL/min (>60); Estimated Creatinine Clearance 10.18 ml/min; Glucose 157 mg/dL (74-106); Potassium 4.1 mmol/L (3.5-5.1); Sodium Level 137 mmol/L (136-145)
[2019-02-23 05:50] LABS: Bedside Glucose 146 mg/dL (70-110)
--- NOTE | 2019-02-23 06:46 | PCM.PN.INT ---
Subjective: The patient was seen and examined at the bedside this morning. Events from the last 24 hours have been reviewed. The patient is currently afebrile and maintaining appropriate oxygen saturations on 3 L/min. From approximately 7 PM until 2 AM, the patient was off of vasopressor support. However, Levophed was restarted overnight due to tenuous hemodynamics. Nursing staff did report the presence of black, tarry stools overnight. Nevertheless, the patient's blood counts remain stable. The patient's Levophed has been weaned down this morning to 4 mcg/min. The patient seems more confused/delirious this morning. He denies the presence of resting shortness of breath or cough. Objective: The patient's most recent lab work, culture data and imaging studies have all been personally reviewed. Surface echocardiogram dated February 20 was notable for normal LV size and function with an ejection fraction of 65%. The RV was severely dilated with moderate global RV systolic dysfunction. Right ventricular systolic pressure was estimated to be 53 mmHg. Blood cultures dated February 18 were positive for MRSA. General: Alert, Cooperative, Confused, Disoriented HEENT: Atraumatic, PERRLA, Normocephalic Oral: No Gingival or Mucosal Lesions/ Ulcerations Neck: Supple, No Nodes, Trachea Midline Lungs: No rhonchi, No wheeze, No rales, Diminished Cardiovascular: Regular rate, Regular Rhythm, Normal S1, Normal S2, No murmurs, - - Frequent ectopy on telemetry Abdomen: Bowel Sounds Present, Soft, Non Tender, Obese Extremities: No clubbing, No cyanosis, No edema, Diminished Peripheral Pulses Skin: - - Lower extremity venous stasis dermatitis Musculoskeletal: No Muscle Wasting Lymphatic: No Cervical, Supraclavicular, or Inguinal Adenopathy Neurological: - - No focal neurological deficits. Psych/Mental Status: Restless Vital Signs Temp Pulse Resp BP Pulse Ox 98.1 F 102 H 14 121/65 H 98 02/23/19 04:00 02/23/19 06:00 02/23/19 06:00 02/23/19 06:00 02/23/19 06:00 Oxygen Flow Rate (L/min) 3 Oxygen Delivery Method Nasal Cannula Weight: 306 lb 0.026 oz Body Mass Index (BMI) 50.1 Finger Stick Blood Glucose 145 Intake and Output for Last 24 Hours 02/21/19 02/22/19 02/23/19 23:59 23:59 23:59 Intake Total 887.33 / 906.13 902.86 / 932.86 70.11 / 70.11 Output Total 350 / 350 4000 / 4000 Balance 537.33 / 556.13 -3097.14 / -3067.14 70.11 / 70.11 Labs (Last 48 Hours) 02/21/19 02/21/19 02/22/19 11:18 16:59 00:38 WBC RBC Hgb Hct MCV MCH MCHC RDW Std Deviation RDW Coeff of [place] Plt Count MPV Immature Gran % (Auto) Neut % (Auto) Lymph % (Auto) [place] % (Auto) Eos % (Auto) Baso % (Auto) Absolute Neuts (auto) Absolute Lymphs (auto) Nucleated RBC % Sodium Potassium Chloride Carbon Dioxide Anion Gap BUN Creatinine Estim Creat Clear Calc Est GFR (MDRD) Af Amer Est GFR (MDRD) Non-Af BUN/Creatinine Ratio Glucose Calcium Random Vancomycin POC Glucose 172 H 179 H 149 H 02/22/19 02/22/19 02/22/19 04:00 07:09 11:46 WBC RBC Hgb Hct MCV MCH MCHC RDW Std Deviation RDW Coeff of [place] Plt Count MPV Immature Gran % (Auto) Neut % (Auto) Lymph % (Auto) [place] % (Auto) Eos % (Auto) Baso % (Auto) Absolute Neuts (auto) Absolute Lymphs (auto) Nucleated RBC % Sodium Potassium Chloride Carbon Dioxide Anion Gap BUN Creatinine Estim Creat Clear Calc Est GFR (MDRD) Af Amer Est GFR (MDRD) Non-Af BUN/Creatinine Ratio Glucose Calcium Random Vancomycin 17.6 H POC Glucose 164 H 126 H 02/22/19 02/22/19 02/22/19 16:35 18:10 23:02 WBC RBC Hgb Hct MCV MCH MCHC RDW Std Deviation RDW Coeff of [place] Plt Count MPV Immature Gran % (Auto) Neut % (Auto) Lymph % (Auto) [place] % (Auto) Eos % (Auto) Baso % (Auto) Absolute Neuts (auto) Absolute Lymphs (auto) Nucleated RBC % Sodium Potassium Chloride Carbon Dioxide Anion Gap BUN Creatinine Estim Creat Clear Calc Est GFR (MDRD) Af Amer Est GFR (MDRD) Non-Af BUN/Creatinine Ratio Glucose Calcium Random Vancomycin 23.9 H POC Glucose 182 H 122 H 02/23/19 02/23/19 02/23/19 04:15 04:15 05:10 WBC 6.7 RBC 4.12 L Hgb 12.0 L Hct 39.5 L MCV 95.9 H MCH 29.1 MCHC 30.4 L RDW Std Deviation 61.2 H RDW Coeff of [place] 17.2 H Plt Count 86 L MPV 10.8 Immature Gran % (Auto) 0.400 Neut % (Auto) 72.9 H Lymph % (Auto) 12.1 L [place] % (Auto) 11.2 H Eos % (Auto) 3.0 Baso % (Auto) 0.4 Absolute Neuts (auto) 4.9 Absolute Lymphs (auto) 0.81 L Nucleated RBC % 0.3 Sodium 137 Potassium 4.1 Chloride 99 Carbon Dioxide 31.0 Anion Gap 7 BUN 52 H Creatinine 6.18 H Estim Creat Clear Calc 10.18 Est GFR (MDRD) Af Amer 12 L Est GFR (MDRD) Non-Af 10 L BUN/Creatinine Ratio 8.4 L Glucose 157 H Calcium 8.7 Random Vancomycin POC Glucose 146 H Microbiology 02/20/19 06:30 Blood Culture (Wb) - Femoral Artery Blood Culture - Preliminary No growth in 48 hours. 02/19/19 19:30 Other - Dialysis/Fistula Miscellaneous Culture - Final Meth. resistant Staph. aureus 02/19/19 19:30 Other - Dialysis/Fistula Gram Stain - Final 02/18/19 18:55 Blood Culture (Wb) - Venous Blood Culture - Final Staphylococcus aureus 02/18/19 18:55 Blood Culture (Wb) - Venous Bacteria Detection (PCR) - Final Meth. resistant Staph. aureus 02/18/19 18:55 Blood Culture (Wb) - Venous Blood Culture - Final Meth. resistant Staph. aureus Clinical Impression(s) from Imaging Studies Chest X-Ray 02/18/19 19:45 IMPRESSION: Cardiomegaly with pulmonary vascular prominence. Electronically Signed: Guanako Flores DO at 20:04 EST Tel [phone], Service support , Brain CT 02/19/19 04:08 IMPRESSION: No acute intracranial abnormality. Chronic changes as above. ASPECT 10. Individualized dose optimization techniques were used for this CT. at 0423 Reported and signed by: Ashok Mead MD N.B. : The above information has been verbally conveyed by Ashok Mead MD to Dr. Valdemar MD, on 02/19/2019 04:27:49 (ET). Electronically Signed: Ashok Mead MD at 4:21 EST Tel , Service support , Head/Neck CTA 02/19/19 04:08 IMPRESSION: Severe bilateral distal CCA into carotid bulb calcific plaque contributing to 20% stenosis on the right and 60% stenosis on the left. No dissection. Severe amounts of calcific plaque in the intracranial portion of the left vertebral artery. No stenosis or aneurysm perceived. No occlusion identified. Individualized dose optimization techniques were used for this CT. at 3547 Reported and signed by: Ashok Mead MD Electronically Signed: Ashok Mead MD at 4:58 EST Tel , Service support , ADDENDUM: 02/19/19 0508 IMPRESSION: Severe bilateral distal CCA into carotid bulb calcific plaque contributing to 20% stenosis on the right and 60% stenosis on the left. No dissection. Severe amounts of calcific plaque in the intracranial portion of the left vertebral artery. No stenosis or aneurysm perceived. No occlusion identified. Individualized dose optimization techniques were used for this CT. at 0452 Reported and signed by: Ashok Mead MD N.B. : The above information has been verbally conveyed by Ashok Mead MD to Dr. Valdemar MD, on 02/19/2019 05:01:40 (ET). Electronically Signed: Ashok Mead MD at 4:58 EST Tel , Service support , Medical Necessity - Tobacco Use Smoking Status: Former smoker Assessment/Plan All Active Problems (Last Reviewed 02/19/19 @ 00:13 by Stew Aldrich MD) Septic shock (Acute) RECOMMENDATIONS: 1. Given that the patient reportedly has low/normal blood pressures at baseline, will consider titrating vasopressor to systolic pressure as opposed to mean arterial pressure. 2. Continue antibiotics as ordered. 3. Wean supplemental oxygen to maintain saturations at or above 90%. 4. Encourage incentive spirometer use and mobilize patient as tolerated. 5. Continue bronchodilators. 6. If vasopressors are able to be discontinued today, femoral central venous catheter will be removed. IMPRESSIONS: 1. Septic shock secondary to MRSA bacteremia Clinical suspicion for MRSA bacteremia secondary to hemodialysis line. Patient has grown blood cultures within 12 hours with MRSA indicating high bacterial burden at this time. Repeat blood cultures have not shown any growth to date. We will plan to continue vancomycin accordingly. Wean Levophed as tolerated to maintain a mean arterial pressure at or above 65 mmHg. 2. Metabolic encephalopathy secondary to #1 Altered mentation likely secondary to underlying infectious etiology. Continue current supportive measures with antibiotics and vasopressor support to maintain hemodynamic stability. Avoid sedating medications. 3. Coagulopathy secondary to Coumadin secondary to A. fib The patient presented with a supratherapeutic INR, which was reversed pharmacologically. Continue to hold Coumadin for now, pending clinical stability. Unclear if the patient will require a temporary hemodialysis line in the near future. 4. End-stage renal disease on hemodialysis Continue hemodialysis support per nephrology recommendations. Unclear if the patient will require reinsertion of a temporary hemodialysis line. The patient does have a known, tortuous fistula site. 5. Uncontrolled diabetes mellitus Continue sliding scale insulin coverage as ordered. 6. Morbid obesity/peripheral artery disease/COPD/chronic diastolic CHF/history of osteomyelitis/secondary pulmonary hypertension Complicates care, management, recovery and prognosis. Physical therapy evaluation pending. TIME: 35 minutes of critical care time, independent of procedures, was spent addressing the patient's septic shock, MRSA bacteremia, metabolic encephalopathy, atrial fibrillation, end-stage renal disease, review of all data and collaboration with the care team. ([id number]) Code Visit 9xxxx: [id number] Critical care first hour
--- NOTE | 2019-02-23 07:30 | PCM.PN.HOSP ---
Patient Problems: Active and Suspected Problems (Last Reviewed 02/19/19 @ 00:13 by Stew Aldrich MD) Septic shock (Acute) Reason for Visit: Septic shock from MRSA Subjective: Patient seen reported by nursing staff to be hallucinating this a.m. Still remains on Levophed for pressure support. Objective: GENERAL: Somewhat lethargic HEENT: Atraumatic; EYES; Anicteric, Normal Conjunctiva NECK; supple, normal thyroid, RESPIRATORY: Diminished to auscultation CARDIOVASCULAR: Regular S1 S2, GI: soft, normoactive bowel sounds, : No Renal angle tenderness; EXTREMITIES: No cyanosis, no clubbing, MUSCULOSKELETAL: no muscle waisting NEURO: no lateralizing signs. SKIN: Bruising left arm PSYCH; significantly flat affect Vitals/I&O's: Vital Signs Temp Pulse Resp BP Pulse Ox 98.1 F 101 H 26 H 122/57 H 100 02/23/19 04:00 02/23/19 07:01 02/23/19 07:01 02/23/19 07:00 02/23/19 07:01 Oxygen Flow Rate (L/min) 3 Oxygen Delivery Method Nasal Cannula Weight: 138.8 kg Body Mass Index (BMI) 50.1 Finger Stick Blood Glucose 145 Intake and Output for Last 24 Hours 02/21/19 02/22/19 02/23/19 23:59 23:59 23:59 Intake Total 887.33 / 906.13 902.86 / 932.86 79.51 / 79.51 Output Total 350 / 350 4000 / 4000 Balance 537.33 / 556.13 -3097.14 / -3067.14 79.51 / 79.51 Microbiology Past 72 Hours 02/20/19 06:30 Blood Culture (Wb) - Femoral Artery Blood Culture - Preliminary No growth in 48 hours. 02/19/19 19:30 Other - Dialysis/Fistula Miscellaneous Culture - Final Meth. resistant Staph. aureus 02/19/19 19:30 Other - Dialysis/Fistula Gram Stain - Final 02/18/19 18:55 Blood Culture (Wb) - Venous Blood Culture - Final Staphylococcus aureus 02/18/19 18:55 Blood Culture (Wb) - Venous Bacteria Detection (PCR) - Final Meth. resistant Staph. aureus 02/18/19 18:55 Blood Culture (Wb) - Venous Blood Culture - Final Meth. resistant Staph. aureus Laboratory Results 02/22/19 11:46: POC Glucose 126 H 02/22/19 16:35: Random Vancomycin 23.9 H 02/22/19 18:10: POC Glucose 182 H 02/22/19 23:02: POC Glucose 122 H 02/23/19 04:15: WBC 6.7, RBC 4.12 L, Hgb 12.0 L, Hct 39.5 L, MCV 95.9 H, MCH 29.1, MCHC 30.4 L, RDW Std Deviation 61.2 H, RDW Coeff of [place] 17.2 H, Plt Count 86 L, MPV 10.8, Immature Gran % (Auto) 0.400, Neut % (Auto) 72.9 H, Lymph % (Auto) 12.1 L, [place] % (Auto) 11.2 H, Eos % (Auto) 3.0, Baso % (Auto) 0.4, Absolute Neuts (auto) 4.9, Absolute Lymphs (auto) 0.81 L, Nucleated RBC % 0.3 02/23/19 04:15: Sodium 137, Potassium 4.1, Chloride 99, Carbon Dioxide 31.0, Anion Gap 7, BUN 52 H, Creatinine 6.18 H, Estim Creat Clear Calc 10.18, Est GFR (MDRD) Af Amer 12 L, Est GFR (MDRD) Non-Af 10 L, BUN/Creatinine Ratio 8.4 L, Glucose 157 H, Calcium 8.7 02/23/19 05:10: POC Glucose 146 H Current Medications Acetaminophen (Tylenol) 650 mg RECTAL Q4H PRN PRN PRN Reason: Pain Score 1-10/Temp > 100.7 F Last Admin: 02/19/19 23:46 Dose: 650 mg Documented by: Albuterol/Ipratropium (Duoneb) 3 ml INHALATION Q6H.RT [facility] Last Admin: 02/23/19 07:00 Dose: 3 ml Documented by: Bisacodyl (Dulcolax) 5 mg PO DAILY PRN PRN PRN Reason: Constipation Budesonide (Pulmicort Aerosol) 0.5 mg INHALATION Q12H.RT [facility] Last Admin: 02/22/19 18:44 Dose: 0.5 mg Documented by: Calamine/Phenol (Calmoseptine Ointment) 1 applic TOPICAL BID [facility]; Protocol Calcium Acetate (Phoslo Gel Cap) 1,334 mg PO BIDCM [facility] Last Admin: 02/22/19 18:12 Dose: 1,334 mg Documented by: Escitalopram Oxalate (Lexapro) 10 mg PO DAILY [facility] Last Admin: 02/22/19 14:28 Dose: 10 mg Documented by: Glucagon () 1 mg IM .X1 PRN PRN Reason: Hypoglycemia Heparin Sodium (Porcine) () 2,500 units IV UD PRN PRN Reason: Dialysis Cath Heparin Flush Pantoprazole Sodium 40 mg/ (Sodium Chloride) 110 mls @ 330 mls/hr IV Q24 [facility] Last Infusion: 02/22/19 14:00 Dose: Infused Documented by: Vancomycin IV Pharmacy to Dose (1,500 ea/ Sodium Chloride) 500 mls @ 250 mls/hr IV PRN PRN; Protocol Dextrose (Dextrose 10%-Water) 250 mls @ 999 mls/hr IV X1 PRN; Protocol PRN Reason: HYPOGLYCEMIA Sodium Chloride () 250 mls @ 15 mls/hr IV .[id number] PRN PRN Reason: Saline Flush Norepinephrine Bitartrate 8 mg (/ Sodium Chloride) 250 mls @ 9.375 mls/hr CONT INF .[id number] [facility]; Protocol Last Titration: 02/23/19 07:00 Dose: 5 mcg/min, 9.4 mls/hr Documented by: Insulin Human Lispro (Humalog Kwikpen (Bkc)) 0 unit SC Q6 [facility]; Protocol Last Admin: 02/23/19 05:12 Dose: Not Given Documented by: Midodrine (Proamatine) 10 mg PO BID [facility] Last Admin: 02/22/19 23:03 Dose: 10 mg Documented by: Ondansetron HCl (Zofran) 4 mg IV Q8H PRN PRN PRN Reason: NAUSEA/VOMITING Sodium Chloride () 10 ml IV UD PRN PRN Reason: Dialysis Catheter Flush Sodium Chloride () 10 - 40 ml IV UD PRN PRN Reason: SALINE FLUSH STROKE Vital Signs/Narrative: Vital Signs Temp Pulse Resp BP Pulse Ox 02/23/19 07:01 101 H 26 H 100 02/23/19 07:00 99 24 H 122/57 H 99 02/23/19 06:00 102 H 14 121/65 H 98 02/23/19 05:00 103 H 24 H 113/58 L 96 02/23/19 04:00 98.1 F 103 H 22 H 115/54 L 95 Medical Necessity - Tobacco Use Smoking Status: Former smoker Assessment/Plan All Active Problems (Last Reviewed 02/19/19 @ 00:13 by Stew Aldrich MD) Septic shock (Acute) Patient is a 69-year-old male with multiple comorbidities including end-stage renal disease on hemodialysis admitted from a half-way with fever. An assessment of MRSA septic shock secondary to infected hemodialysis catheter made. Admitted to the intensive care unit for further management 1. MRSA septic shock secondary to infected dialysis catheter ?Patient dialysis catheter was removed on 02/19/2019. Culture tip positive for MRSA. Patient blood cultures also came back positive for MRSA currently on Zosyn. Patient also remains hypotensive and is on Levophed. Currently being managed in the ICU as part of patient management had a 2D echo which did not demonstrate any valvular lesions. Repeat cultures were obtained results pending ?02/23/2019; Patient seen reported by nursing staff to be hallucinating this a.m. Still remains on Levophed for pressure support. Cultures negative to date. 2. Acute metabolic encephalopathy ?Secondary to septic shock as a result of an infected dialysis catheter management as discussed above ?02/23/2019; patient still remains encephalopathic 3. End-stage renal disease ?On hemodialysis Wednesdays and Fridays. Patient currently being dialyzed through an AV fistula 4. Diabetes mellitus type 2 With complications including diabetic nephropathy (end-stage renal disease and). Patient is currently on Accu-Cheks before meals and at bedtime with sliding scale coverage 5. Chronic paroxysmal A. fib ?Patient in sinus rhythm on Coumadin INR was elevated on admission 4.1 down to 1.5 as of 02/22/2019, Coumadin held in anticipation of possible perma catheter placement 6. Diabetic neuropathy ?Patient is on gabapentin with patient being lethargic gabapentin currently on hold. 7. Thrombocytopenia ?Chronic monitoring with daily CBC 8. Chronic congestive heart failure with preserved ejection fraction ?Currently compensated 9. Pulmonary hypertension ?Patient is on supplemental oxygen 10. Morbid obesity with BMI of 50.4 ?Plan is to consult patient on lifestyle modification as well as weight loss. Patient may be a candidate for gastric bypass given his underlying comorbidities including diabetes mellitus type 2 11. Obstructive sleep apnea ?On CPAP at night 12. GERD ?On PPI 13. DVT prophylaxis ?patient is on Coumadin which is currently on hold in anticipation of possible PermCath placement. Neither Heparin or Lovenox could be initiated given patient low platelet counts. Currently on SCDs Code Visit Inpatient E&M: 61225 Subs Hosp L2
--- NOTE | 2019-02-23 09:41 | CASEMGMT ---
Social Work Clinical updates faxed to [facility]. Pt not ready for d/c at this time. Plan: [facility] when medically ready HEATHER Reeder
--- NOTE | 2019-02-23 09:43 | PCM.PN.ID ---
Patient Problems: Active and Suspected Problems (Last Reviewed 02/19/19 @ 00:13 by Stew Aldrich MD) Septic shock (Acute) Subjective: Feeling ok, denies pain, no fever. - Physical Exam Vitals/I&O's: Vital Signs Temp Pulse Resp BP Pulse Ox 98.1 F 101 H 26 H 122/57 H 100 02/23/19 04:00 02/23/19 07:01 02/23/19 07:01 02/23/19 07:00 02/23/19 07:01 Oxygen Flow Rate (L/min) 3 Oxygen Delivery Method Nasal Cannula Weight: 138.8 kg Body Mass Index (BMI) 50.1 Finger Stick Blood Glucose 145 Intake and Output for Last 24 Hours 02/21/19 02/22/19 02/23/19 23:59 23:59 23:59 Intake Total 887.33 / 906.13 902.86 / 932.86 79.51 / 79.51 Output Total 350 / 350 4000 / 4000 Balance 537.33 / 556.13 -3097.14 / -3067.14 79.51 / 79.51 General: Cooperative, No apparent distress Lungs: Clear to auscultation, Normal air movement Cardiovascular: Irregular Rate Abdomen: Soft, Non Tender, Non-Distended Skin: No rashes Microbiology Past 72 Hours 02/21/19 06:50 Blood Culture (Wb) - Arterial Blood Culture - Preliminary No growth in 48 hours. 02/20/19 06:30 Blood Culture (Wb) - Femoral Artery Blood Culture - Preliminary No growth in 48 hours. 02/19/19 19:30 Other - Dialysis/Fistula Miscellaneous Culture - Final Meth. resistant Staph. aureus 02/19/19 19:30 Other - Dialysis/Fistula Gram Stain - Final 02/18/19 18:55 Blood Culture (Wb) - Venous Blood Culture - Final Staphylococcus aureus 02/18/19 18:55 Blood Culture (Wb) - Venous Bacteria Detection (PCR) - Final Meth. resistant Staph. aureus 02/18/19 18:55 Blood Culture (Wb) - Venous Blood Culture - Final Meth. resistant Staph. aureus Laboratory Results 02/22/19 11:46: POC Glucose 126 H 02/22/19 16:35: Random Vancomycin 23.9 H 02/22/19 18:10: POC Glucose 182 H 02/22/19 23:02: POC Glucose 122 H 02/23/19 04:15: WBC 6.7, RBC 4.12 L, Hgb 12.0 L, Hct 39.5 L, MCV 95.9 H, MCH 29.1, MCHC 30.4 L, RDW Std Deviation 61.2 H, RDW Coeff of Dixie 17.2 H, Plt Count 86 L, MPV 10.8, Immature Gran % (Auto) 0.400, Neut % (Auto) 72.9 H, Lymph % (Auto) 12.1 L, [place] % (Auto) 11.2 H, Eos % (Auto) 3.0, Baso % (Auto) 0.4, Absolute Neuts (auto) 4.9, Absolute Lymphs (auto) 0.81 L, Nucleated RBC % 0.3 02/23/19 04:15: Sodium 137, Potassium 4.1, Chloride 99, Carbon Dioxide 31.0, Anion Gap 7, BUN 52 H, Creatinine 6.18 H, Estim Creat Clear Calc 10.18, Est GFR (MDRD) Af Amer 12 L, Est GFR (MDRD) Non-Af 10 L, BUN/Creatinine Ratio 8.4 L, Glucose 157 H, Calcium 8.7 02/23/19 05:10: POC Glucose 146 H Current Medications Acetaminophen (Tylenol) 650 mg RECTAL Q4H PRN PRN PRN Reason: Pain Score 1-10/Temp > 100.7 F Last Admin: 02/19/19 23:46 Dose: 650 mg Documented by: Albuterol/Ipratropium (Duoneb) 3 ml INHALATION Q6H.RT [facility] Last Admin: 02/23/19 07:00 Dose: 3 ml Documented by: Bisacodyl (Dulcolax) 5 mg PO DAILY PRN PRN PRN Reason: Constipation Budesonide (Pulmicort Aerosol) 0.5 mg INHALATION Q12H.RT [facility] Last Admin: 02/22/19 18:44 Dose: 0.5 mg Documented by: Calamine/Phenol (Calmoseptine Ointment) 1 applic TOPICAL BID [facility]; Protocol Calcium Acetate ([facility]lo [facility]) [facility] Last Admin: 02/22/19 18:12 Dose: 1,334 mg Documented by: Escitalopram Oxalate (Lexapro) 10 mg PO DAILY [facility] Last Admin: 02/22/19 14:28 Dose: 10 mg Documented by: Glucagon () 1 mg IM .X1 PRN PRN Reason: Hypoglycemia Heparin Sodium (Porcine) () 2,500 units IV UD PRN PRN Reason: Dialysis Cath Heparin Flush Pantoprazole Sodium 40 mg/ (Sodium Chloride) 110 mls @ 330 mls/hr IV Q24 [facility] Last Infusion: 02/22/19 14:00 Dose: Infused Documented by: Vancomycin IV Pharmacy to Dose (1,500 ea/ Sodium Chloride) 500 mls @ 250 mls/hr IV PRN PRN; Protocol Dextrose (Dextrose 10%-Water) 250 mls @ 999 mls/hr IV X1 PRN; Protocol PRN Reason: HYPOGLYCEMIA Sodium Chloride () 250 mls @ 15 mls/hr IV .[id number] PRN PRN Reason: Saline Flush Norepinephrine Bitartrate 8 mg (/ Sodium Chloride) 250 mls @ 9.375 mls/hr CONT INF .[id number] [facility]; Protocol Last Titration: 02/23/19 07:00 Dose: 5 mcg/min, 9.4 mls/hr Documented by: Insulin Human Lispro (Humalog Kwikpen (Bkc)) 0 unit SC Q6 [facility]; Protocol Last Admin: 02/23/19 05:12 Dose: Not Given Documented by: Melatonin (Melatonin) 5 mg PO QHS PRN PRN Reason: SLEEP Midodrine (Proamatine) 10 mg PO BID [facility] Last Admin: 02/22/19 23:03 Dose: 10 mg Documented by: Ondansetron HCl (Zofran) 4 mg IV Q8H PRN PRN PRN Reason: NAUSEA/VOMITING Sodium Chloride () 10 ml IV UD PRN PRN Reason: Dialysis Catheter Flush Sodium Chloride () 10 - 40 ml IV UD PRN PRN Reason: SALINE FLUSH Medical Necessity - Tobacco Use Smoking Status: Former smoker Route of nutrition/ use of supplements: [] Nutritional Intake: [] IV Site: [] [place] Catheter: [] - Assessment/Plan Antibiotics: [] Assessment/Plan: [] Active and Suspected Problems (Last Reviewed 02/19/19 @ 00:13 by Stew Aldrich MD) Septic shock (Acute) Septic shock due to MRSA - suspected permacath as source. Line removed 12/13, pus seen during procedure. Echo showed no veg. Repeat bcx neg since 02/20. Cont vanc. Overall much improved, still on pressors. Wbc normal, fever resolved. Plan for discharge will be 6 weeks of iv vanc dosed with HD. Will follow, d/w nursing.
[2019-02-23] MEDS: Calcium Acetate 667 MG Capsule 1334 MG PO ×2 (09:58→18:32)
[2019-02-23] MEDS: Midodrine HCl 5 MG Tablet 10 MG PO ×2 (09:59→21:20)
[2019-02-23] MEDS: Escitalopram Oxalate 10 MG Tablet PO (09:59)
[2019-02-23] MEDS: Menthol/Lanolin/Calamine/Znox 113 GM Tube 1 APPLIC TOPICAL ×2 (10:00→21:18)
--- NOTE | 2019-02-23 10:45 | PN.SURG_ITS ---
Patient Problems: Active and Suspected Problems (Last Reviewed 02/19/19 @ 00:13 by Stew Aldrich MD) Septic shock (Acute) Subjective: alert, down to 3mcg of levo, denies pain - Physical Exam Vitals/I&O's: Vital Signs Temp Pulse Resp BP Pulse Ox 98.1 F 101 H 26 H 122/57 H 100 02/23/19 04:00 02/23/19 07:01 02/23/19 07:01 02/23/19 07:00 02/23/19 07:01 Oxygen Flow Rate (L/min) 3 Oxygen Delivery Method Nasal Cannula Weight: 306 lb 0.026 oz Body Mass Index (BMI) 50.1 Finger Stick Blood Glucose 145 Intake and Output for Last 24 Hours 02/21/19 02/22/19 02/23/19 23:59 23:59 23:59 Intake Total 887.33 / 906.13 902.86 / 932.86 79.51 / 79.51 Output Total 350 / 350 4000 / 4000 Balance 537.33 / 556.13 -3097.14 / -3067.14 79.51 / 79.51 General: Alert, Cooperative, No apparent distress Abdomen: Soft, Non Tender, Non-Distended Skin: - - prev right tunnelled dialysis catheter healing well Microbiology Past 72 Hours 02/21/19 06:50 Blood Culture (Wb) - Arterial Blood Culture - Preliminary No growth in 48 hours. 02/20/19 06:30 Blood Culture (Wb) - Femoral Artery Blood Culture - Preliminary No growth in 48 hours. 02/19/19 19:30 Other - Dialysis/Fistula Miscellaneous Culture - Final Meth. resistant Staph. aureus 02/19/19 19:30 Other - Dialysis/Fistula Gram Stain - Final 02/18/19 18:55 Blood Culture (Wb) - Venous Blood Culture - Final Staphylococcus aureus 02/18/19 18:55 Blood Culture (Wb) - Venous Bacteria Detection (PCR) - Final Meth. resistant Staph. aureus 02/18/19 18:55 Blood Culture (Wb) - Venous Blood Culture - Final Meth. resistant Staph. aureus Laboratory Results 02/22/19 11:46: POC Glucose 126 H 02/22/19 16:35: Random Vancomycin 23.9 H 02/22/19 18:10: POC Glucose 182 H 02/22/19 23:02: POC Glucose 122 H 02/23/19 04:15: WBC 6.7, RBC 4.12 L, Hgb 12.0 L, Hct 39.5 L, MCV 95.9 H, MCH 29.1, MCHC 30.4 L, RDW Std Deviation 61.2 H, RDW Coeff of Dixie 17.2 H, Plt Count 86 L, MPV 10.8, Immature Gran % (Auto) 0.400, Neut % (Auto) 72.9 H, Lymph % (Auto) 12.1 L, [place] % (Auto) 11.2 H, Eos % (Auto) 3.0, Baso % (Auto) 0.4, Absolute Neuts (auto) 4.9, Absolute Lymphs (auto) 0.81 L, Nucleated RBC % 0.3 02/23/19 04:15: Sodium 137, Potassium 4.1, Chloride 99, Carbon Dioxide 31.0, Anion Gap 7, BUN 52 H, Creatinine 6.18 H, Estim Creat Clear Calc 10.18, Est GFR (MDRD) Af Amer 12 L, Est GFR (MDRD) Non-Af 10 L, BUN/Creatinine Ratio 8.4 L, Glucose 157 H, Calcium 8.7 02/23/19 05:10: POC Glucose 146 H Current Medications Acetaminophen (Tylenol) 650 mg RECTAL Q4H PRN PRN PRN Reason: Pain Score 1-10/Temp > 100.7 F Last Admin: 02/19/19 23:46 Dose: 650 mg Documented by: Albuterol/Ipratropium (Duoneb) 3 ml INHALATION Q6H.RT [facility] Last Admin: 02/23/19 07:00 Dose: 3 ml Documented by: Bisacodyl (Dulcolax) 5 mg PO DAILY PRN PRN PRN Reason: Constipation Budesonide (Pulmicort Aerosol) 0.5 mg INHALATION Q12H.RT [facility] Last Admin: 02/22/19 18:44 Dose: 0.5 mg Documented by: Calamine/Phenol (Calmoseptine Ointment) 1 applic TOPICAL BID [facility]; Protocol Last Admin: 02/23/19 10:00 Dose: 1 applicatio Documented by: Calcium Acetate (Phoslo Gel Cap) 1,334 [facility] Last Admin: 02/23/19 09:58 Dose: 1,334 mg Documented by: Escitalopram Oxalate (Lexapro) 10 mg PO DAILY [facility] Last Admin: 02/23/19 09:59 Dose: 10 mg Documented by: Glucagon () 1 mg IM .X1 PRN PRN Reason: Hypoglycemia Heparin Sodium (Porcine) () 2,500 units IV UD PRN PRN Reason: Dialysis Cath Heparin Flush Pantoprazole Sodium 40 mg/ (Sodium Chloride) 110 mls @ 330 mls/hr IV Q24 [facility] Last Admin: 02/23/19 09:59 Dose: 330 mls/hr Documented by: Vancomycin IV Pharmacy to Dose (1,500 ea/ Sodium Chloride) 500 mls @ 250 mls/hr IV PRN PRN; Protocol Dextrose (Dextrose 10%-Water) 250 mls @ 999 mls/hr IV X1 PRN; Protocol PRN Reason: HYPOGLYCEMIA Sodium Chloride () 250 mls @ 15 mls/hr IV .[id number] PRN PRN Reason: Saline Flush Norepinephrine Bitartrate 8 mg (/ Sodium Chloride) 250 mls @ 9.375 mls/hr CONT INF .[id number] [facility]; Protocol Last Titration: 02/23/19 07:00 Dose: 5 mcg/min, 9.4 mls/hr Documented by: Insulin Human Lispro (Humalog Kwikpen (Bkc)) 0 unit SC ACHS [facility]; Protocol Melatonin (Melatonin) 5 mg PO QHS PRN PRN Reason: SLEEP Midodrine (Proamatine) 10 mg PO BID [facility] Last Admin: 02/23/19 09:59 Dose: 10 mg Documented by: Nystatin (Mycostatin Powder) 1 applic TOPICAL BID [facility]; Protocol Ondansetron HCl (Zofran) 4 mg IV Q8H PRN PRN PRN Reason: NAUSEA/VOMITING Sodium Chloride () 10 ml IV UD PRN PRN Reason: Dialysis Catheter Flush Sodium Chloride () 10 - 40 ml IV UD PRN PRN Reason: SALINE FLUSH Medical Necessity - Tobacco Use Smoking Status: Former smoker Assessment/Plan All Active Problems (Last Reviewed 02/19/19 @ 00:13 by Stew Aldrich MD) Septic shock (Acute) 69-year-old male with septic shock, positive blood culture-mrsa - Neg since 02/20, end-stage renal disease with tunneled right IJ dialysis catheter-s/p removal 02/19, left arm fistula 1. Dr. Rausch doesn't recommend placing another dialysis catheter if pt able to get dialysis with the LUE fistula. will continue to follow. Saige Bennett M.D. Pager: [phone] [facility] [address] [place] [address], [facility], [address] [place] [address] Office: [phone] Code Visit Inpatient E&M: 66260 Subs Hosp L1
[2019-02-23] MEDS: Insulin Lispro 100 UNIT/ML INSULN.PEN SC ×2 (11:19→21:17)
--- NOTE | 2019-02-23 12:00 | NURSING ---
call to [facility], spoke w/floor nurse. She states per their records, the pt's bp has ranged from 77/56 to 122/56.
[2019-02-23 12:05] LABS: Bedside Glucose 212 mg/dL (70-110)
--- NOTE | 2019-02-23 13:09 | PCM.PROGNOTE ---
Patient Problems: Active and Suspected Problems (Last Reviewed 02/19/19 @ 00:13 by Stew Aldrich MD) Septic shock (Acute) Subjective: Patient has no complaints no chest pain or shortness of breath - Physical Exam Vitals/I&O's: Vital Signs Temp Pulse Resp BP Pulse Ox 97.4 F L 105 H 27 H 105/58 L 95 02/23/19 08:00 02/23/19 11:00 02/23/19 11:00 02/23/19 11:00 02/23/19 11:00 Oxygen Flow Rate (L/min) 3 Oxygen Delivery Method Nasal Cannula Weight: 138.8 kg Body Mass Index (BMI) 50.1 Finger Stick Blood Glucose 145 Intake and Output for Last 24 Hours 02/21/19 02/22/19 02/23/19 23:59 23:59 23:59 Intake Total 887.33 / 906.13 902.86 / 932.86 98.79 / 98.79 Output Total 350 / 350 4000 / 4000 Balance 537.33 / 556.13 -3097.14 / -3067.14 98.79 / 98.79 General: Alert, Oriented x3, Cooperative HEENT: Atraumatic, PERRLA, EOMI, Normocephalic Neck: Supple, No JVD, Negative Carotid Bruits Lungs: Clear to auscultation, Normal air movement Cardiovascular: Regular rate, No murmurs Abdomen: Bowel Sounds Present, Soft, Non Tender, Obese - Tortuous left arm AV fistula Extremities: No edema, Capillary Refill Less than 3 Seconds Skin: No rashes, No breakdown Musculoskeletal: No Tenderness to Palpation of Joints or Extremities Neurological: Cranial nerves II-XII grossly intact Psych/Mental Status: Normal Affect, Appropriate Microbiology Past 72 Hours 02/21/19 06:50 Blood Culture (Wb) - Arterial Blood Culture - Preliminary No growth in 48 hours. 02/20/19 06:30 Blood Culture (Wb) - Femoral Artery Blood Culture - Preliminary No growth in 48 hours. 02/19/19 19:30 Other - Dialysis/Fistula Miscellaneous Culture - Final Meth. resistant Staph. aureus 02/19/19 19:30 Other - Dialysis/Fistula Gram Stain - Final 02/18/19 18:55 Blood Culture (Wb) - Venous Blood Culture - Final Staphylococcus aureus 02/18/19 18:55 Blood Culture (Wb) - Venous Bacteria Detection (PCR) - Final Meth. resistant Staph. aureus 02/18/19 18:55 Blood Culture (Wb) - Venous Blood Culture - Final Meth. resistant Staph. aureus Laboratory Results 02/22/19 16:35: Random Vancomycin 23.9 H 02/22/19 18:10: POC Glucose 182 H 02/22/19 23:02: POC Glucose 122 H 02/23/19 04:15: WBC 6.7, RBC 4.12 L, Hgb 12.0 L, Hct 39.5 L, MCV 95.9 H, MCH 29.1, MCHC 30.4 L, RDW Std Deviation 61.2 H, RDW Coeff of Dixie 17.2 H, Plt Count 86 L, MPV 10.8, Immature Gran % (Auto) 0.400, Neut % (Auto) 72.9 H, Lymph % (Auto) 12.1 L, [place] % (Auto) 11.2 H, Eos % (Auto) 3.0, Baso % (Auto) 0.4, Absolute Neuts (auto) 4.9, Absolute Lymphs (auto) 0.81 L, Nucleated RBC % 0.3 02/23/19 04:15: Sodium 137, Potassium 4.1, Chloride 99, Carbon Dioxide 31.0, Anion Gap 7, BUN 52 H, Creatinine 6.18 H, Estim Creat Clear Calc 10.18, Est GFR (MDRD) Af Amer 12 L, Est GFR (MDRD) Non-Af 10 L, BUN/Creatinine Ratio 8.4 L, Glucose 157 H, Calcium 8.7 02/23/19 05:10: POC Glucose 146 H 02/23/19 11:16: POC Glucose 212 H Current Medications Acetaminophen (Tylenol) 650 mg RECTAL Q4H PRN PRN PRN Reason: Pain Score 1-10/Temp > 100.7 F Last Admin: 02/19/19 23:46 Dose: 650 mg Documented by: Albuterol/Ipratropium (Duoneb) 3 ml INHALATION Q6H.RT [facility] Last Admin: 02/23/19 07:00 Dose: 3 ml Documented by: Bisacodyl (Dulcolax) 5 mg PO DAILY PRN PRN PRN Reason: Constipation Budesonide (Pulmicort Aerosol) 0.5 mg INHALATION Q12H.RT [facility] Last Admin: 02/22/19 18:44 Dose: 0.5 mg Documented by: Calamine/Phenol (Calmoseptine Ointment) 1 applic TOPICAL BID [facility]; Protocol Last Admin: 02/23/19 10:00 Dose: 1 applicatio Documented by: Calcium Acetate (Phoslo Gel Cap) 1,334 mg PO BIDCM [facility] Last Admin: 02/23/19 09:58 Dose: 1,334 mg Documented by: Escitalopram Oxalate (Lexapro) 10 mg PO DAILY [facility] Last Admin: 02/23/19 09:59 Dose: 10 mg Documented by: Glucagon () 1 mg IM .X1 PRN PRN Reason: Hypoglycemia Heparin Sodium (Porcine) () 2,500 units IV UD PRN PRN Reason: Dialysis Cath Heparin Flush Pantoprazole Sodium 40 mg/ (Sodium Chloride) 110 mls @ 330 mls/hr IV Q24 [facility] Last Admin: 02/23/19 09:59 Dose: 330 mls/hr Documented by: Vancomycin IV Pharmacy to Dose (1,500 ea/ Sodium Chloride) 500 mls @ 250 mls/hr IV PRN PRN; Protocol Dextrose (Dextrose 10%-Water) 250 mls @ 999 mls/hr IV X1 PRN; Protocol PRN Reason: HYPOGLYCEMIA Sodium Chloride () 250 mls @ 15 mls/hr IV .[id number] PRN PRN Reason: Saline Flush Norepinephrine Bitartrate 8 mg (/ Sodium Chloride) 250 mls @ 9.375 mls/hr CONT INF .[id number] [facility]; Protocol Last Titration: 02/23/19 11:00 Dose: 0 mcg/min, 0 mls/hr Documented by: Insulin Human Lispro (Humalog Kwikpen (Bkc)) 0 unit SC ACHS [facility]; Protocol Last Admin: 02/23/19 11:19 Dose: 1 u Documented by: Melatonin (Melatonin) 5 mg PO QHS PRN PRN Reason: SLEEP Midodrine (Proamatine) 10 mg PO BID [facility] Last Admin: 02/23/19 09:59 Dose: 10 mg Documented by: Nystatin (Mycostatin Powder) 1 applic TOPICAL BID [facility]; Protocol Ondansetron HCl (Zofran) 4 mg IV Q8H PRN PRN PRN Reason: NAUSEA/VOMITING Sodium Chloride () 10 ml IV UD PRN PRN Reason: Dialysis Catheter Flush Sodium Chloride () 10 - 40 ml IV UD PRN PRN Reason: SALINE FLUSH Medical Necessity - Tobacco Use Smoking Status: Former smoker Assessment/Plan All Active Problems (Last Reviewed 02/19/19 @ 00:13 by Stew Aldrich MD) Septic shock (Acute) ESRD Anemia CKD MBD Septic shock resolved MRSA bacteremia likely line sepsis Pulmonary edema tolerated well HD via avf yesterday per HD RN Continue Friday dialysis. For dialysis tomorrow hopefully can use AV fistula again and he does not need placement of a new tunneled dialysis catheter. Off pressors for 2 hours now keep MAP more than 65. Continue binders monitor phosphorus Antibiotics as per ID on vanco.
[2019-02-23 16:46] LABS: Bedside Glucose 108 mg/dL (70-110)
[2019-02-23] MEDS: Budesonide Respules 0.5 MG/2 ML AMPUL.NEB. INHALATION (18:43)
[2019-02-23] MEDS: Nystatin Powder 15gm Bottle 1 APPLIC TOPICAL (21:18)
[2019-02-23] MEDS: MELATONIN 10 MG TABLET 5 MG PO (21:20)
[2019-02-23 21:31] LABS: Bedside Glucose 192 mg/dL (70-110)
[2019-02-24] VITALS (23 sets, daily range): BP systolic 87–117; BP diastolic 31–93; PULSE 88–101; RESP 15–23; TEMP 36.5–36.8; O2SAT 93–98
[2019-02-24] MEDS: Ipratropium/Albuterol Sulfate 3 ML AMPUL.NEB INHALATION ×4 (01:30→20:00)
[2019-02-24 05:08] LABS: Vancomycin, Random Level 19.3 ug/mL (0.0-15.0)
--- NOTE | 2019-02-24 06:49 | PN_ITS ---
Subjective: The patient was seen and examined at the bedside this morning. Events from the last 24 hours have been reviewed. The patient is currently afebrile, hemodynamically stable and maintaining appropriate oxygen saturations on 3 L/min via nasal cannula. The patient was able to be weaned off of Levophed completely yesterday and his femoral triple-lumen catheter was subsequently removed. Despite being administered melatonin last evening, the patient continues to have difficulty sleeping at night. Objective: The patient's most recent lab work, culture data and imaging studies have all been personally reviewed. Surface echocardiogram dated February 20 was notable for normal LV size and function with an ejection fraction of 65%. The RV was severely dilated with moderate global RV systolic dysfunction. Right ventricular systolic pressure was estimated to be 53 mmHg. Blood cultures dated February 18 were positive for MRSA. General: Alert, Cooperative, Confused HEENT: Atraumatic, PERRLA, Normocephalic Oral: No Gingival or Mucosal Lesions/ Ulcerations Neck: Supple, No Nodes, Trachea Midline Lungs: No rhonchi, No wheeze, No rales, Diminished Cardiovascular: Normal S1, Normal S2, No murmurs, Irregular Rate Abdomen: Bowel Sounds Present, Soft, Non Tender, Obese Extremities: No clubbing, No cyanosis, No edema, Diminished Peripheral Pulses Skin: - - No significant change from previous Musculoskeletal: No Muscle Wasting Lymphatic: No Cervical, Supraclavicular, or Inguinal Adenopathy Neurological: - - No focal neurological deficits. Psych/Mental Status: Flat Affect Vital Signs Temp Pulse Resp BP Pulse Ox 98.1 F 101 H 23 H 98/58 L 97 02/24/19 06:00 02/24/19 06:00 02/24/19 06:00 02/24/19 06:00 02/24/19 06:00 Oxygen Flow Rate (L/min) 3 Oxygen Delivery Method Nasal Cannula Weight: 309 lb 1.409 oz Body Mass Index (BMI) 50.1 Finger Stick Blood Glucose 145 Intake and Output for Last 24 Hours 02/22/19 02/23/19 02/24/19 23:59 23:59 23:59 Intake Total 902.86 / 932.86 628.79 / 653.79 125 / 125 Output Total 4000 / 4000 0 / 0 0 / 0 Balance -3097.14 / -3067.14 628.79 / 653.79 125 / 125 Labs (Last 48 Hours) 02/22/19 02/22/19 02/22/19 07:09 11:46 16:35 WBC RBC Hgb Hct MCV MCH MCHC RDW Std Deviation RDW Coeff of Dixie Plt Count MPV Immature Gran % (Auto) Neut % (Auto) Lymph % (Auto) [place] % (Auto) Eos % (Auto) Baso % (Auto) Absolute Neuts (auto) Absolute Lymphs (auto) Nucleated RBC % Sodium Potassium Chloride Carbon Dioxide Anion Gap BUN Creatinine Estim Creat Clear Calc Est GFR (MDRD) Af Amer Est GFR (MDRD) Non-Af BUN/Creatinine Ratio Glucose Calcium Random Vancomycin 23.9 H POC Glucose 164 H 126 H 02/22/19 02/22/19 02/23/19 18:10 23:02 04:15 WBC 6.7 RBC 4.12 L Hgb 12.0 L Hct 39.5 L MCV 95.9 H MCH 29.1 MCHC 30.4 L RDW Std Deviation 61.2 H RDW Coeff of Dixie 17.2 H Plt Count 86 L MPV 10.8 Immature Gran % (Auto) 0.400 Neut % (Auto) 72.9 H Lymph % (Auto) 12.1 L [place] % (Auto) 11.2 H Eos % (Auto) 3.0 Baso % (Auto) 0.4 Absolute Neuts (auto) 4.9 Absolute Lymphs (auto) 0.81 L Nucleated RBC % 0.3 Sodium Potassium Chloride Carbon Dioxide Anion Gap BUN Creatinine Estim Creat Clear Calc Est GFR (MDRD) Af Amer Est GFR (MDRD) Non-Af BUN/Creatinine Ratio Glucose Calcium Random Vancomycin POC Glucose 182 H 122 H 02/23/19 02/23/19 02/23/19 04:15 05:10 11:16 WBC RBC Hgb Hct MCV MCH MCHC RDW Std Deviation RDW Coeff of Dixie Plt Count MPV Immature Gran % (Auto) Neut % (Auto) Lymph % (Auto) [place] % (Auto) Eos % (Auto) Baso % (Auto) Absolute Neuts (auto) Absolute Lymphs (auto) Nucleated RBC % Sodium 137 Potassium 4.1 Chloride 99 Carbon Dioxide 31.0 Anion Gap 7 BUN 52 H Creatinine 6.18 H Estim Creat Clear Calc 10.18 Est GFR (MDRD) Af Amer 12 L Est GFR (MDRD) Non-Af 10 L BUN/Creatinine Ratio 8.4 L Glucose 157 H Calcium 8.7 Random Vancomycin POC Glucose 146 H 212 H 02/23/19 02/23/19 02/24/19 16:36 21:16 04:00 WBC RBC Hgb Hct MCV MCH MCHC RDW Std Deviation RDW Coeff of [place]ie Plt Count MPV Immature Gran % (Auto) Neut % (Auto) Lymph % (Auto) [place] % (Auto) Eos % (Auto) Baso % (Auto) Absolute Neuts (auto) Absolute Lymphs (auto) Nucleated RBC % Sodium Potassium Chloride Carbon Dioxide Anion Gap BUN Creatinine Estim Creat Clear Calc Est GFR (MDRD) Af Amer Est GFR (MDRD) Non-Af BUN/Creatinine Ratio Glucose Calcium Random Vancomycin 19.3 H POC Glucose 108 192 H Microbiology 02/21/19 06:50 Blood Culture (Wb) - Arterial Blood Culture - Preliminary No growth in 48 hours. 02/20/19 06:30 Blood Culture (Wb) - Femoral Artery Blood Culture - Prelimi nary No growth in 48 hours. Clinical Impression(s) from Imaging Studies Chest X-Ray 02/18/19 19:45 IMPRESSION: Cardiomegaly with pulmonary vascular prominence. Electronically Signed: Guanako Flores DO at 20:04 EST Tel [phone], Service support , Brain CT 02/19/19 04:08 IMPRESSION: No acute intracranial abnormality. Chronic changes as above. ASPECT 10. Individualized dose optimization techniques were used for this CT. at 0423 Reported and signed by: Ashok Mead MD N.B. : The above information has been verbally conveyed by Ashok Mead MD to Dr. Valdemar MD, on 02/19/2019 04:27:49 (ET). Electronically Signed: Ashok Mead MD at 4:21 EST Tel , Service support , Head/Neck CTA 02/19/19 04:08 IMPRESSION: Severe bilateral distal CCA into carotid bulb calcific plaque contributing to 20% stenosis on the right and 60% stenosis on the left. No dissection. Severe amounts of calcific plaque in the intracranial portion of the left vertebral artery. No stenosis or aneurysm perceived. No occlusion identified. Individualized dose optimization techniques were used for this CT. at 0459 Reported and signed by: Ashok Mead MD Electronically Signed: Ashok Mead MD at 4:58 EST Tel , Service support , ADDENDUM: 02/19/19 0508 IMPRESSION: Severe bilateral distal CCA into carotid bulb calcific plaque contributing to 20% stenosis on the right and 60% stenosis on the left. No dissection. Severe amounts of calcific plaque in the intracranial portion of the left vertebral artery. No stenosis or aneurysm perceived. No occlusion identified. Individualized dose optimization techniques were used for this CT. at 0453 Reported and signed by: Ashok Mead MD N.B. : The above information has been verbally conveyed by Ashok Mead MD to Dr. Valdemar MD, on 02/19/2019 05:01:40 (ET). Electronically Signed: Ashok Mead MD at 4:58 EST Tel , Service support , Medical Necessity - Tobacco Use Smoking Status: Former smoker Assessment/Plan All Active Problems (Last Reviewed 02/19/19 @ 00:13 by Stew Aldrich MD) Septic shock (Acute) RECOMMENDATIONS: 1. Continue vancomycin per infectious diseases recommendations. 2. Continue to wean supplemental oxygen to maintain saturations at or above 90%. 3. Encourage incentive spirometer use and mobilize patient as tolerated. 4. Continue bronchodilators. 5. Continue hemodialysis per nephrology recommendations. 6. Likely okay to resume home Coumadin regimen. 7. The patient can be transferred out of the medical intensive care unit from my perspective. IMPRESSIONS: 1. Septic shock secondary to MRSA bacteremia Clinical suspicion for MRSA bacteremia secondary to hemodialysis line. Patient has grown blood cultures within 12 hours with MRSA indicating high bacterial burden at this time. Repeat blood cultures have not shown any growth to date. We will plan to continue vancomycin accordingly. The patient has been successfully weaned from vasopressor support and remains stable from a hemodynamic perspective with baseline low/normal blood pressures. 2. Metabolic encephalopathy secondary to #1 Improved. Altered mentation likely secondary to underlying infectious etiology. Continue current supportive measures with antibiotics and vasopressor support to maintain hemodynamic stability. Avoid sedating medications. 3. Coagulopathy secondary to Coumadin secondary to A. fib The patient presented with a supratherapeutic INR, which was reversed pharmacologically. The patient's Coumadin can likely be resumed at this time. 4. End-stage renal disease on hemodialysis Continue hemodialysis support per nephrology recommendations. The patient does have a known, tortuous fistula site, but does not appear to need a temporary hemodialysis line. 5. Uncontrolled diabetes mellitus Continue sliding scale insulin coverage as ordered. 6. Morbid obesity/peripheral artery disease/COPD/chronic diastolic CHF/history of osteomyelitis/secondary pulmonary hypertension Complicates care, management, recovery and prognosis. Physical therapy to continue to work with the patient. This note was generated with [employer] dictation software. It may contain incorrect words, spelling, and punctuation that were not noted in checking the note before signing. Code Visit Inpatient E&M: 40567 [facility] L3
[2019-02-24 07:15] LABS: Bedside Glucose 135 mg/dL (70-110)
--- NOTE | 2019-02-24 07:30 | PN_ITS ---
Patient Problems: Active and Suspected Problems (Last Reviewed 02/19/19 @ 00:13 by Stew Aldrich MD) Septic shock (Acute) Reason for Visit: Follow-up MRSA septic shock Subjective: Patient seen much more awake and conversational currently off pressors plan is for patient to be transferred from the ICU to the progressive care unit Objective: GENERAL: Cooperative HEENT: Atraumatic; EYES; Anicteric, Normal Conjunctiva NECK; supple, normal thyroid, RESPIRATORY: Diminished to auscultation CARDIOVASCULAR: Regular S1 S2, GI: soft, normoactive bowel sounds, : No Renal angle tenderness; EXTREMITIES: No cyanosis, no clubbing, MUSCULOSKELETAL: no muscle waisting NEURO: no lateralizing signs. SKIN: Bruising left arm PSYCH; significantly flat affect Vitals/I&O's: Vital Signs Temp Pulse Resp BP Pulse Ox 98.1 F 101 H 23 H 98/58 L 97 02/24/19 06:00 02/24/19 06:00 02/24/19 06:00 02/24/19 06:00 02/24/19 06:00 Oxygen Flow Rate (L/min) 3 Oxygen Delivery Method Nasal Cannula Weight: 140.2 kg Body Mass Index (BMI) 50.1 Finger Stick Blood Glucose 145 Intake and Output for Last 24 Hours 02/22/19 02/23/19 02/24/19 23:59 23:59 23:59 Intake Total 902.86 / 932.86 628.79 / 653.79 125 / 125 Output Total 4000 / 4000 0 / 0 0 / 0 Balance -3097.14 / -3067.14 628.79 / 653.79 125 / 125 Microbiology Past 72 Hours 02/21/19 06:50 Blood Culture (Wb) - Arterial Blood Culture - Preliminary No growth in 48 hours. 02/20/19 06:30 Blood Culture (Wb) - Femoral Artery Blood Culture - Preliminary No growth in 48 hours. 02/19/19 19:30 Other - Dialysis/Fistula Miscellaneous Culture - Final Meth. resistant Staph. aureus 02/19/19 19:30 Other - Dialysis/Fistula Gram Stain - Final 02/18/19 18:55 Blood Culture (Wb) - Venous Blood Culture - Final Staphylococcus aureus 02/18/19 18:55 Blood Culture (Wb) - Venous Bacteria Detection (PCR) - Final Meth. resistant Staph. aureus 02/18/19 18:55 Blood Culture (Wb) - Venous Blood Culture - Final Meth. resistant Staph. aureus Laboratory Results 02/23/19 11:16: POC Glucose 212 H 02/23/19 16:36: POC Glucose 108 02/23/19 21:16: POC Glucose 192 H 02/24/19 04:00: Random Vancomycin 19.3 H 02/24/19 06:55: POC Glucose 135 H Current Medications Acetaminophen (Tylenol) 650 mg RECTAL Q4H PRN PRN PRN Reason: Pain Score 1-10/Temp > 100.7 F Last Admin: 02/19/19 23:46 Dose: 650 mg Documented by: Albuterol/Ipratropium (Duoneb) 3 ml INHALATION Q6H.RT [facility] Last Admin: 02/24/19 01:30 Dose: 3 ml Documented by: Bisacodyl (Dulcolax) 5 mg PO DAILY PRN PRN PRN Reason: Constipation Budesonide (Pulmicort Aerosol) 0.5 mg INHALATION Q12H.RT [facility] Last Admin: 02/23/19 18:43 Dose: 0.5 mg Documented by: Calamine/Phenol (Calmoseptine Ointment) 1 applic TOPICAL BID [facility]; Protocol Last Admin: 02/23/19 21:18 Dose: 1 applicatio Documented by: Calcium Acetate (Phoslo Gel Cap) 1,334 mg PO BIDCM [facility] Last Admin: 02/23/19 18:32 Dose: 1,334 mg Documented by: Escitalopram Oxalate (Lexapro) 10 mg PO DAILY [facility] Last Admin: 02/23/19 09:59 Dose: 10 mg Documented by: Glucagon () 1 mg IM .X1 PRN PRN Reason: Hypoglycemia Heparin Sodium (Porcine) () 2,500 units IV UD PRN PRN Reason: Dialysis Cath Heparin Flush Pantoprazole Sodium 40 mg/ (Sodium Chloride) 110 mls @ 330 mls/hr IV Q24 [facility] Last Infusion: 02/23/19 21:21 Dose: Infused Documented by: Vancomycin IV Pharmacy to Dose (1,500 ea/ Sodium Chloride) 500 mls @ 250 mls/hr IV PRN PRN; Protocol Dextrose (Dextrose 10%-Water) 250 mls @ 999 mls/hr IV X1 PRN; Protocol PRN Reason: HYPOGLYCEMIA Sodium Chloride () 250 mls @ 15 mls/hr IV .[id number] PRN PRN Reason: Saline Flush Insulin Human Lispro (Humalog Kwikpen (Bkc)) 0 unit SC ACHS [facility]; Protocol Last Admin: 02/23/19 21:17 Dose: 1 u Documented by: Melatonin (Melatonin) 5 mg PO QHS PRN PRN Reason: SLEEP Last Admin: 02/23/19 21:20 Dose: 5 mg Documented by: Midodrine (Proamatine) 10 mg PO BID [facility] Last Admin: 02/23/19 21:20 Dose: 10 mg Documented by: Nystatin (Mycostatin Powder) 1 applic TOPICAL BID [facility]; Protocol Last Admin: 02/23/19 21:18 Dose: 1 applic Documented by: Ondansetron HCl (Zofran) 4 mg IV Q8H PRN PRN PRN Reason: NAUSEA/VOMITING Sodium Chloride () 10 ml IV UD PRN PRN Reason: Dialysis Catheter Flush Sodium Chloride () 10 - 40 ml IV UD PRN PRN Reason: SALINE FLUSH STROKE Vital Signs/Narrative: Vital Signs Temp Pulse Resp BP Pulse Ox 02/24/19 06:00 98.1 F 101 H 23 H 98/58 L 97 02/24/19 05:00 92 22 H 91/45 L 97 02/24/19 04:00 99 15 93/49 L 96 02/24/19 03:37 95 Medical Necessity - Tobacco Use Smoking Status: Former smoker Assessment/Plan All Active Problems (Last Reviewed 02/19/19 @ 00:13 by Stew Aldrich MD) Septic shock (Acute) Patient is a 69-year-old male with multiple comorbidities including end-stage renal disease on hemodialysis [place] [facility] with fever. An assessment of MRSA septic shock secondary to infected hemodialysis catheter made. Admitted to the intensive care unit for further management 1. MRSA septic shock secondary to infected dialysis catheter ?Patient dialysis catheter was removed on 02/19/2019. Culture tip positive for MRSA. Patient blood cultures also came back positive for MRSA currently on Zosyn. Patient also remains hypotensive and is on Levophed. Currently being managed in the ICU as part of patient management had a 2D echo which did not demonstrate any valvular lesions. Repeat cultures were obtained results pending ?02/23/2019; Patient seen reported by nursing staff to be hallucinating this a.m. Still remains on Levophed for pressure support. Cultures negative to date. ?02/24/2019;Patient seen much more awake and conversational currently off pressors plan is for patient to be transferred from the ICU to the progressive care unit repeat cultures have remained negative to date 2. Acute metabolic encephalopathy ?Secondary to septic shock as a result of an infected dialysis catheter managem ent as discussed above ?02/23/2019; patient still remains encephalopathic 3. End-stage renal disease ?On hemodialysis Wednesdays and Fridays. Patient currently being dialyzed through an AV fistula 4. Diabetes mellitus type 2 With complications including diabetic nephropathy (end-stage renal disease and). Patient is currently on Accu-Cheks before meals and at bedtime with sliding scale coverage 5. Chronic paroxysmal A. fib ?Patient in sinus rhythm on Coumadin INR was elevated on admission 4.1 down to 1.5 as of 02/22/2019, Coumadin held in anticipation of possible perma catheter p lacement 6. Diabetic neuropathy ?Patient is on gabapentin with patient being lethargic gabapentin currently on hold. 7. Thrombocytopenia ?Chronic monitoring with daily CBC 8. Chronic congestive heart failure with preserved ejection fraction ?Currently compensated 9. Pulmonary hypertension ?Patient is on supplemental oxygen 10. Morbid obesity with BMI of 50.4 ?Plan is to consult patient on lifestyle modification as well as weight loss. Patient may be a candidate for gastric bypass given his underlying comorbidities including diabetes mellitus type 2 11. Obstructive sleep apnea ?On CPAP at night 12. GERD ?On PPI 13. DVT prophylaxis ?patient is on Coumadin which is currently on hold in anticipation of possible PermCath placement. Neither Heparin or Lovenox could be initiated given patient low platelet counts. Currently on SCDs Code Visit Inpatient E&M: 59914 Subs Hosp L2
[2019-02-24] MEDS: Budesonide Respules 0.5 MG/2 ML AMPUL.NEB. INHALATION ×2 (07:33→20:00)
--- NOTE | 2019-02-24 07:54 | PCM.RX.CS ---
Consult Pharmacy has been consulted to manage selected antiobiotic: Vancomycin Type of Consult: Follow-up Suspected Infection: Bacteremia Labs: Sodium 137 mmol/L (136-145) 02/23/19 04:15 Potassium 4.1 mmol/L (3.5-5.1) 02/23/19 04:15 Chloride 99 mmol/L (98-107) 02/23/19 04:15 Carbon Dioxide 31.0 mmol/L (21.0-32.0) 02/23/19 04:15 Anion Gap 7 (5-15) 02/23/19 04:15 BUN 52 mg/dL (7-18) H 02/23/19 04:15 Creatinine 6.18 mg/dL (0.70-1.30) H 02/23/19 04:15 Est GFR (MDRD) Af Amer 12 mL/min (>60) L 02/23/19 04:15 Est GFR (MDRD) Non-Af 10 mL/min (>60) L 02/23/19 04:15 BUN/Creatinine Ratio 8.4 RATIO (10-20) L 02/23/19 04:15 Glucose 157 mg/dL (74-106) H 02/23/19 04:15 Random Vancomycin 19.3 ug/mL (0.0-15.0) H 02/24/19 04:00 Microbiology: Microbiology 02/21/19 06:50 Blood Culture (Wb) - Arterial Blood Culture - Preliminary No growth in 48 hours. 02/20/19 06:30 Blood Culture (Wb) - Femoral Artery Blood Culture - Preliminary No growth in 48 hours. 02/19/19 19:30 Other - Dialysis/Fistula Miscellaneous Culture - Final Meth. resistant Staph. aureus 02/19/19 19:30 Other - Dialysis/Fistula Gram Stain - Final 02/18/19 18:55 Blood Culture (Wb) - Venous Blood Culture - Final Staphylococcus aureus 02/18/19 18:55 Blood Culture (Wb) - Venous Bacteria Detection (PCR) - Final Meth. resistant Staph. aureus 02/18/19 18:55 Blood Culture (Wb) - Venous Blood Culture - Final Meth. resistant Staph. aureus 02/18/19 19:55 Mucosa - Nasopharyngeal Influenza Types A,B Direct FA (FILIBERTO) - Final Weight used for dosin kg Estimated Creatinine Clearance: 10.18 - HD Goal Trough: 15-20 mcg/mL Pharmacy Plan for Drug Dosing: Pt is on MWF dialysis. Pre dialysis Vancomycin level on 02/24/19 was 19.3. Per policy pt will receive a x1 dose of Vancomycin 500mg after dialysis. Next random level will be with the morning labs on Fri02/26/19 Pharmacy Service will continue to monitor and adjust dosing as required. Labs to be done on [date and time ordered]: 02/26/19 @ 0400 (random level)
[2019-02-24] MEDS: Escitalopram Oxalate 10 MG Tablet PO (08:05)
[2019-02-24] MEDS: Calcium Acetate 667 MG Capsule 1334 MG PO ×2 (08:05→16:48)
[2019-02-24] MEDS: Midodrine HCl 5 MG Tablet 10 MG PO ×2 (08:05→22:51)
[2019-02-24] MEDS: 0.9% Saline Lock 10 ML Syringe IV (08:10)
[2019-02-24] MEDS: Nystatin Powder 15gm Bottle 1 APPLIC TOPICAL ×2 (08:12→22:40)
[2019-02-24] MEDS: Menthol/Lanolin/Calamine/Znox 113 GM Tube 1 APPLIC TOPICAL ×2 (08:12→22:40)
--- NOTE | 2019-02-24 10:30 | CASEMGMT ---
Addendum entered by Yaritza Pantoja 02/24/19 11:20: Pt is currently getting dialysis. SW spoke w/pt briefly in regard to LW/POA forms. Pt vaguely remembers speaking to SW last time he was here about doing new forms, as he has Carmelina Mac still listed as POA. Pt not feeling well at present, SW explained will come back tomorrow and we can discuss further, pt agreeable to speak w/SW tomorrow. SW will follow up tomorrow. REYNA Kirk Original Note: Pt will be transferred out of ICU today to PCU, and may be able to return to [facility] on Friday or Friday. CLARA called Roslyn at [facility] to let her know, and will send updates tomorrow in the event they would like to start a precert to have pt return skilled. Roslyn states pt can come back under his Medicaid and they may look at getting a precert once he returns. CLARA will continue to follow. REYNA Kirk
[2019-02-24 11:21] LABS: Bedside Glucose 143 mg/dL (70-110)
--- NOTE | 2019-02-24 14:28 | DIALYSIS ---
HD today, treatment ended at 1305 after 3.5hrs, tolerated poorly, patient treatment discontinued 1 hr early due to BLE pain (RLS according to patient), UF 600mL due to hypotension at times and possible cramping in BLE, patient tx started at 0940, at 1100 patient began complaining of RLS, reports taking mirapex at home, ICU nurse notified, patient BLE discomfort continued, received extra dose of midodrine due to patient's BP dropping to 80s/40s multiple times, UF off majority of treatment and then BP stable, at 1300 patient started repeating why don't we try and was unable to complete his thought, found patient was again asking to try dialysis another time, patient not given medication for BLE discomfort/pain during dialysis, due to this great discomfort as well as his mental status (oriented x3 but repeating self) tx ended early, patient reported feeling better post treatment, stable, accessed via RANGEL AVF using 17G needles, AVF worked fairly well, stasis achieved post treatment without issue, CritLine ended profile A, report to IMAN Mathews, Dr. Benitez notified
--- NOTE | 2019-02-24 14:45 | PCM.PN.ID ---
Patient Problems: Active and Suspected Problems (Last Reviewed 02/19/19 @ 00:13 by Stew Aldrich MD) Septic shock (Acute) Subjective: Off pressors, feeling ok, no fever - Physical Exam Vitals/I&O's: Vital Signs Temp Pulse Resp BP Pulse Ox 98.0 F 98 20 H 110/58 L 96 02/24/19 12:00 02/24/19 13:16 02/24/19 13:16 02/24/19 12:00 02/24/19 12:00 Oxygen Flow Rate (L/min) 3 Oxygen Delivery Method Nasal Cannula Weight: 140.2 kg Body Mass Index (BMI) 50.1 Finger Stick Blood Glucose 145 Intake and Output for Last 24 Hours 02/22/19 02/23/19 02/24/19 23:59 23:59 23:59 Intake Total 902.86 / 932.86 628.79 / 653.79 243.5 / 243.5 Output Total 4000 / 4000 0 / 0 0 / 0 Balance -3097.14 / -3067.14 628.79 / 653.79 243.5 / 243.5 General: Cooperative, No apparent distress Lungs: Clear to auscultation, Normal air movement Cardiovascular: Regular rate, Regular Rhythm Abdomen: Soft, Non Tender, Non-Distended Skin: No rashes Microbiology Past 72 Hours 02/21/19 06:50 Blood Culture (Wb) - Arterial Blood Culture - Preliminary No growth in 48 hours. 02/20/19 06:30 Blood Culture (Wb) - Femoral Artery Blood Culture - Preliminary No growth in 48 hours. 02/19/19 19:30 Other - Dialysis/Fistula Miscellaneous Culture - Final Meth. resistant Staph. aureus 02/19/19 19:30 Other - Dialysis/Fistula Gram Stain - Final Laboratory Results 02/23/19 16:36: POC Glucose 108 02/23/19 21:16: POC Glucose 192 H 02/24/19 04:00: Random Vancomycin 19.3 H 02/24/19 06:55: POC Glucose 135 H 02/24/19 11:17: POC Glucose 143 H Current Medications Acetaminophen (Tylenol) 650 mg RECTAL Q4H PRN PRN PRN Reason: Pain Score 1-10/Temp > 100.7 F Last Admin: 02/19/19 23:46 Dose: 650 mg Documented by: Albuterol/Ipratropium (Duoneb) 3 ml INHALATION Q6H.RT [facility] Last Admin: 02/24/19 13:12 Dose: 3 ml Documented by: Bisacodyl (Dulcolax) 5 mg PO DAILY PRN PRN PRN Reason: Constipation Budesonide (Pulmicort Aerosol) 0.5 mg INHALATION Q12H.RT [facility] Last Admin: 02/24/19 07:33 Dose: 0.5 mg Documented by: Calamine/Phenol (Calmoseptine Ointment) 1 applic TOPICAL BID [facility]; Protocol Last Admin: 02/24/19 08:12 Dose: 1 applicatio Documented by: Calcium Acetate (Phoslo Gel Cap) 1,334 mg PO BIDCM [facility] Last Admin: 02/24/19 08:05 Dose: 1,334 mg Documented by: Escitalopram Oxalate (Lexapro) 10 mg PO DAILY [facility] Last Admin: 02/24/19 08:05 Dose: 10 mg Documented by: [facility] Glucagon () 1 mg IM .X1 PRN PRN Reason: Hypoglycemia Heparin Sodium (Porcine) () 2,500 units IV UD PRN PRN Reason: Dialysis Cath Heparin Flush Pantoprazole Sodium 40 mg/ (Sodium Chloride) 110 mls @ 330 mls/hr IV Q24 [facility] Last Infusion: 02/24/19 08:27 Dose: Infused Documented by: Vancomycin IV Pharmacy to Dose (1,500 ea/ Sodium Chloride) 500 mls @ 250 mls/hr IV PRN PRN; Protocol Dextrose (Dextrose 10%-Water) 250 mls @ 999 mls/hr IV X1 PRN; Protocol PRN Reason: HYPOGLYCEMIA Sodium Chloride () 250 mls @ 15 mls/hr IV .[id number] PRN PRN Reason: Saline Flush Last Infusion: 02/24/19 08:49 Dose: 0 mls/hr Documented by: Vancomycin HCl () 500 mg in 100 mls @ 100 mls/hr IV X1 ONE Stop: 02/24/19 16:59 Insulin Human Lispro (Humalog Kwikpen (Bkc)) 0 unit SC ACHS [facility]; Protocol Last Admin: 02/24/19 11:59 Dose: Not Given Documented by: Melatonin (Melatonin) 5 mg PO QHS PRN PRN Reason: SLEEP Last Admin: 02/23/19 21:20 Dose: 5 mg Documented by: Midodrine (Proamatine) 10 mg PO BID [facility] Last Admin: 02/24/19 08:05 Dose: 10 mg Documented by: Nystatin (Mycostatin Powder) 1 applic TOPICAL BID [facility]; Protocol Last Admin: 02/24/19 08:12 Dose: 1 applic Documented by: Ondansetron HCl (Zofran) 4 mg IV Q8H PRN PRN PRN Reason: NAUSEA/VOMITING Pramipexole Dihydrochloride (Mirapex) 0.5 mg PO DAILY [facility] Sodium Chloride () 10 ml IV UD PRN PRN Reason: Dialysis Catheter Flush Sodium Chloride () 10 - 40 ml IV UD PRN PRN Reason: SALINE FLUSH Last Admin: 02/24/19 08:10 Dose: 10 ml Documented by: Medical Necessity - Tobacco Use Smoking Status: Former smoker Route of nutrition/ use of supplements: [] Nutritional Intake: [] IV Site: [] [place] Catheter: [] - Assessment/Plan Antibiotics: [] Assessment/Plan: [] Active and Suspected Problems (Last Reviewed 02/19/19 @ 00:13 by Stew Aldrich MD) Septic shock (Acute) Septic shock due to MRSA - suspected permacath as source. Line removed 02/19, pus seen during procedure. Echo showed no veg. Repeat bcx neg since 02/20. Cont vanc. Overall much improved, now off pressors. Wbc normal, fever resolved. Plan for discharge will be 6 weeks of iv vanc dosed with HD, stop date 04/03/19. Will follow
--- NOTE | 2019-02-24 15:16 | PCM.PN.REN ---
Patient Problems: Active and Suspected Problems (Last Reviewed 02/19/19 @ 00:13 by Stew Aldrich MD) Septic shock (Acute) Subjective: no new events - Physical Exam Vitals/I&O's: Vital Signs Temp Pulse Resp BP Pulse Ox 97.7 F L 98 20 H 96/57 L 96 02/24/19 13:10 02/24/19 13:16 02/24/19 13:16 02/24/19 13:10 02/24/19 12:00 Oxygen Flow Rate (L/min) 3 Oxygen Delivery Method Nasal Cannula Weight: 140.2 kg Body Mass Index (BMI) 50.1 Finger Stick Blood Glucose 145 Intake and Output for Last 24 Hours 02/22/19 02/23/19 02/24/19 23:59 23:59 23:59 Intake Total 902.86 / 932.86 628.79 / 653.79 243.5 / 243.5 Output Total 4000 / 4000 0 / 0 600 / 600 Balance -3097.14 / -3067.14 628.79 / 653.79 -356.5 / -356.5 General: Alert, Oriented x3, Cooperative HEENT: Atraumatic, PERRLA, EOMI, Normocephalic Neck: Supple, No JVD, Negative Carotid Bruits Lungs: Clear to auscultation, Normal air movement Cardiovascular: Regular rate, No murmurs Abdomen: Bowel Sounds Present, Soft, Non Tender Extremities: No edema, Capillary Refill Less than 3 Seconds Skin: No rashes, No breakdown Musculoskeletal: No Tenderness to Palpation of Joints or Extremities Neurological: Cranial nerves II-XII grossly intact Psych/Mental Status: Normal Affect, Appropriate Microbiology Past 72 Hours 02/21/19 06:50 Blood Culture (Wb) - Arterial Blood Culture - Preliminary No growth in 48 hours. 02/20/19 06:30 Blood Culture (Wb) - Femoral Artery Blood Culture - Preliminary No growth in 48 hours. 02/19/19 19:30 Other - Dialysis/Fistula Miscellaneous Culture - Final Meth. resistant Staph. aureus 02/19/19 19:30 Other - Dialysis/Fistula Gram Stain - Final Laboratory Results 02/23/19 16:36: POC Glucose 108 02/23/19 21:16: POC Glucose 192 H 02/24/19 04:00: Random Vancomycin 19.3 H 02/24/19 06:55: POC Glucose 135 H 02/24/19 11:17: POC Glucose 143 H Current Medications Acetaminophen (Tylenol) 650 mg RECTAL Q4H PRN PRN PRN Reason: Pain Score 1-10/Temp > 100.7 F Last Admin: 02/19/19 23:46 Dose: 650 mg Documented by: Albuterol/Ipratropium (Duoneb) 3 ml INHALATION Q6H.RT [facility] Last Admin: 02/24/19 13:12 Dose: 3 ml Documented by: Bisacodyl (Dulcolax) 5 mg PO DAILY PRN PRN PRN Reason: Constipation Budesonide (Pulmicort Aerosol) 0.5 mg INHALATION Q12H.RT [facility] Last Admin: 02/24/19 07:33 Dose: 0.5 mg Documented by: Calamine/Phenol (Calmoseptine Ointment) 1 applic TOPICAL BID [facility]; Protocol Last Admin: 02/24/19 08:12 Dose: 1 applicatio Documented by: Calcium Acetate (Phoslo Gel Cap) 1,334 mg PO BIDCM [facility] Last Admin: 02/24/19 08:05 Dose: 1,334 mg Documented by: Escitalopram Oxalate (Lexapro) 10 mg PO DAILY [facility] Last Admin: 02/24/19 08:05 Dose: 10 mg Documented by: Gabapentin (Neurontin) 300 mg PO BIDCM [facility] Glucagon () 1 mg IM .X1 PRN PRN Reason: Hypoglycemia Heparin Sodium (Porcine) () 2,500 units IV UD PRN PRN Reason: Dialysis Cath Heparin Flush Pantoprazole Sodium 40 mg/ (Sodium Chloride) 110 mls @ 330 mls/hr IV Q24 [facility] Last Infusion: 02/24/19 08:27 Dose: Infused Documented by: Vancomycin IV Pharmacy to Dose (1,500 ea/ Sodium Chloride) 500 mls @ 250 mls/hr IV PRN PRN; Protocol Dextrose (Dextrose 10%-Water) 250 mls @ 999 mls/hr IV X1 PRN; Protocol PRN Reason: HYPOGLYCEMIA Sodium Chloride () 250 mls @ 15 mls/hr IV .[id number] PRN PRN Reason: Saline Flush Last Infusion: 02/24/19 08:49 Dose: 0 mls/hr Documented by: Vancomycin HCl () 500 mg in 100 mls @ 100 mls/hr IV X1 ONE Stop: 02/24/19 16:59 Insulin Human Lispro (Humalog Kwikpen (Bkc)) 0 unit SC ACHS [facility]; Protocol Last Admin: 02/24/19 11:59 Dose: Not Given Documented by: Melatonin (Melatonin) 5 mg PO QHS PRN PRN Reason: SLEEP Last Admin: 02/23/19 21:20 Dose: 5 mg Documented by: Midodrine (Proamatine) 10 mg PO BID [facility] Last Admin: 02/24/19 08:05 Dose: 10 mg Documented by: Nystatin (Mycostatin Powder) 1 applic TOPICAL BID [facility]; Protocol Last Admin: 02/24/19 08:12 Dose: 1 applic Documented by: Ondansetron HCl (Zofran) 4 mg IV Q8H PRN PRN PRN Reason: NAUSEA/VOMITING Pramipexole Dihydrochloride (Mirapex) 0.5 mg PO DAILY [facility] Sodium Chloride () 10 ml IV UD PRN PRN Reason: Dialysis Catheter Flush Sodium Chloride () 10 - 40 ml IV UD PRN PRN Reason: SALINE FLUSH Last Admin: 02/24/19 08:10 Dose: 10 ml Documented by: Medical Necessity - Tobacco Use Smoking Status: Former smoker Assessment/Plan All Active Problems (Last Reviewed 02/19/19 @ 00:13 by Stew Aldrich MD) Septic shock (Acute) ESRD Anemia CKD MBD Septic shock resolved MRSA bacteremia likely line sepsis Pulmonary edema seen on HD today has a infiltrate over left arm AVF which is stable unable to remove fluids due to low BP line is out
[2019-02-24] MEDS: Vancomycin IV 500 MG/100 ML BAG 100 MG IV (16:45)
[2019-02-24] MEDS: Gabapentin 300 MG Capsule PO (16:46)
[2019-02-24] MEDS: Pramipexole Di-HCl 0.5 MG Tablet PO (22:47)
[2019-02-24 22:56] LABS: Bedside Glucose 149 mg/dL (70-110)
[2019-02-25] VITALS (9 sets, daily range): BP systolic 94–130; BP diastolic 50–63; PULSE 86–93; RESP 16–22; TEMP 36.6–37.1; O2SAT 93–97
[2019-02-25] MEDS: MELATONIN 10 MG TABLET 5 MG PO (01:33)
[2019-02-25] MEDS: Ipratropium/Albuterol Sulfate 3 ML AMPUL.NEB INHALATION ×3 (01:40→13:28)
[2019-02-25 05:18] LABS: Absolute Lymphocyte Count 0.85 X10^3/uL (0.83-4.51); Absolute Neutrophil Count 4.3 X10^3/uL (2.0-7.7); Basophil# 0.03 X10^3/uL; Basophil% 0.5 % (0-1); Eosinophil# 0.27 X10^3/uL; Eosinophils% 4.3 % (0-5); Hematocrit 38.5 % (40-54); Hemoglobin 11.9 g/dL (13.0-16.5); Lymphocyte # 0.85 X10^3/ul (4.0); Lymphocyte % 13.6 % (19-41); Mean Corp Hgb Conc 30.9 g/dL (32-36); Mean Corpuscular Hgb 29.4 pg (27.0-32.0); Mean Corpuscular Volume 95.1 fL (80-94); Mean Platelet Vol. 11.1 fl (6.2-12.0); Monocyte# 0.72 X10^3/uL; Monocyte% 11.6 % (0-10); NRBC Flagged by Analyzer 0.3 % (0-5); Neutrophil # 4.27 X10^3/uL (2.7-7.7); Neutrophil % 68.6 % (47-70); Platelet Count 119 K/mm3 (150-450); RBC Distribution Width CV 16.7 % (11.6-14.6); RBC Distribution Width SD 58.3 fl (35.1-43.9); Red Blood Count 4.05 M/mm3 (4.6-6.2); White Blood Count 6.2 K/mm3 (4.4-11.0)
[2019-02-25 05:37] LABS: Anion Gap 7 (5-15); BUN 40 mg/dL (7-18); BUN/Creat Ratio 6.8 RATIO (10-20); Chloride 100 mmol/L (98-107); Creatinine, Serum 5.88 mg/dL (0.70-1.30); EST Glomerular Filtration Rate 10 mL/min (>60); Est Glom Filt Rate - Afr Amer 12 mL/min (>60); Glucose 120 mg/dL (74-106); Magnesium 2.4 mg/dL (1.6-2.6); Potassium 4.5 mmol/L (3.5-5.1); Sodium Level 137 mmol/L (136-145)
[2019-02-25] MEDS: Budesonide Respules 0.5 MG/2 ML AMPUL.NEB. INHALATION (07:23)
--- NOTE | 2019-02-25 09:33 | CASEMGMT ---
Addendum entered by Yaritza Pantoja 02/25/19 10:24: SW spoke w/Chantale at [facility] and gave her further information in regard to pt, she will follow up w/pt next week at [facility] in regard to palliative care. ROMERO Kirk-George Addendum entered by Yaritza Pantoja 02/25/19 10:06: SW met w/pt, pt much more alert and awake today. SW spoke again w/pt about changing LW/POA forms. Pt is interested in doing this, and is still identifying his sister Chantale as who he would like as medical POA. SW explained we have no current demographic information for her. Pt states he has it at the assisted. SW asked pt if he would like the CLARA Baig to follow up w/him at [facility] to re-do the LW/POA forms, pt would like to do this. SW also spoke w/pt about palliative care, pt is agreeable to speak w/palliative care further. CLARA called [facility], spoke w/Roslyn. SW let her know pt is still interested in re-doing his POA papers. SW also let her know pt will be getting IV antibiotics at dialysis, and that we are also making a palliative care referral. She then transferred SW to CLARA Baig at [facility], SW left Safia a message letting her know pt would like to re-do the POA/LW forms, but wants to wait until he is there as he has his sister's current phone number there, and we do not have it here. CLARA emphasized in the message the importance of re-doing the forms as the forms we have on file here are out of date with no good phone numbers(pt has his ex-'s sister as POA and his brother in [place] with a phone number that is out of order). CLARA called palliative care, faxed referral and asked them to follow up w/pt at [facility]. CLARA called the [facility] here in [place], spoke w/nurse Workman. SW let her know that pt will need IV antibiotics at discharge at dialysis, faxed the script for the IV antibiotics. She would like to know when pt is discharged, SW will let her know as soon as we know. SW will continue to follow, once pt is discharged will set up transport and let the [facility] in [place] when pt is discharged. REYNA Kirk Original Note: CLARA faxed updates to [facility]. ANALY KirkS
[2019-02-25] MEDS: Menthol/Lanolin/Calamine/Znox 113 GM Tube 1 APPLIC TOPICAL (10:13)
[2019-02-25] MEDS: Nystatin Powder 15gm Bottle 1 APPLIC TOPICAL (10:14)
[2019-02-25] MEDS: Escitalopram Oxalate 10 MG Tablet PO (10:14)
[2019-02-25] MEDS: Midodrine HCl 5 MG Tablet 10 MG PO (10:15)
[2019-02-25] MEDS: Calcium Acetate 667 MG Capsule 1334 MG PO (10:15)
[2019-02-25] MEDS: 0.9% Saline Lock 10 ML Syringe IV (10:15)
[2019-02-25] MEDS: Gabapentin 300 MG Capsule PO (10:15)
--- NOTE | 2019-02-25 10:32 | PN.ID_ITS ---
Patient Problems: Active and Suspected Problems (Last Reviewed 02/19/19 @ 00:13 by Stew Aldrich MD) Septic shock (Acute) Subjective: Pt feeling better, no fever - Physical Exam Vitals/I&O's: Vital Signs Temp Pulse Resp BP Pulse Ox 97.8 F 87 16 96/59 L 97 02/25/19 10:30 02/25/19 10:30 02/25/19 10:30 02/25/19 10:30 02/25/19 10:30 Oxygen Flow Rate (L/min) 3 Oxygen Delivery Method Nasal Cannula Weight: 141.5 kg Body Mass Index (BMI) 50.1 Finger Stick Blood Glucose 145 Intake and Output for Last 24 Hours 02/23/19 02/24/19 02/25/19 23:59 23:59 23:59 Intake Total 628.79 / 653.79 813.5 / 813.5 150 / 150 Output Total 0 / 0 600 / 600 0 / 0 Balance 628.79 / 653.79 213.5 / 213.5 150 / 150 General: Cooperative, No apparent distress Lungs: Clear to auscultation, Normal air movement Cardiovascular: Regular rate, Regular Rhythm Abdomen: Soft, Non Tender, Non-Distended Skin: No rashes Microbiology Past 72 Hours 02/20/19 06:30 Blood Culture (Wb) - Femoral Artery Blood Culture - Final No growth in 5 days. 02/21/19 06:50 Blood Culture (Wb) - Arterial Blood Culture - Preliminary No growth in 48 hours. Laboratory Results 02/24/19 11:17: POC Glucose 143 H 02/24/19 22:35: POC Glucose 149 H 02/25/19 05:05: WBC 6.2, RBC 4.05 L, Hgb 11.9 L, Hct 38.5 L, MCV 95.1 H, MCH 29.4, MCHC 30.9 L, RDW Std Deviation 58.3 H, RDW Coeff of [place] 16.7 H, Plt Count 119 L, MPV 11.1, Immature Gran % (Auto) 1.400 H, Neut % (Auto) 68.6, Lymph % (Auto) 13.6 L, [place] % (Auto) 11.6 H, Eos % (Auto) 4.3, Baso % (Auto) 0.5, Absolute Neuts (auto) 4.3, Absolute Lymphs (auto) 0.85, Nucleated RBC % 0.3 02/25/19 05:05: Sodium 137, Potassium 4.5, Chloride 100, Carbon Dioxide 30.0, A nion Gap 7, BUN 40 H, Creatinine 5.88 H, Estim Creat Clear Calc 10.70, Est GFR (MDRD) Af Amer 12 L, Est GFR (MDRD) Non-Af 10 L, BUN/Creatinine Ratio 6.8 L, Glucose 120 H, Calcium 9.0, Magnesium 2.4 Current Medications Acetaminophen (Tylenol) 650 mg RECTAL Q4H PRN PRN PRN Reason: Pain Score 1-10/Temp > 100.7 F Last Admin: 02/19/19 23:46 Dose: 650 mg Documented by: Albuterol/Ipratropium (Duoneb) 3 ml INHALATION Q6H.RT [facility] Last Admin: 02/25/19 07:23 Dose: 3 ml Documented by: Bisacodyl (Dulcolax) 5 mg PO DAILY PRN PRN PRN Reason: Constipation Budesonide (Pulmicort Aerosol) 0.5 mg INHALATION Q12H.RT [facility] Last Admin: 02/25/19 07:23 Dose: 0.5 mg Documented by: Calamine/Phenol (Calmoseptine Ointment) 1 applic TOPICAL BID [facility]; Protocol Last Admin: 02/25/19 10:13 Dose: 1 applicatio Documented by: Calcium Acetate (Phoslo Gel Cap) 1,334 mg PO BIDCM [facility] Last Admin: 02/25/19 10:15 Dose: 1,334 mg Documented by: Escitalopram Oxalate (Lexapro) 10 mg PO DAILY [facility] Last Admin: 02/25/19 10:14 Dose: 10 mg Documented by: Gabapentin (Neurontin) 300 mg PO BIDCM [facility] Last Admin: 02/25/19 10:15 Dose: 300 mg Documented by: Glucagon () 1 mg IM .X1 PRN PRN Reason: Hypoglycemia Heparin Sodium (Porcine) () 2,500 units IV UD PRN PRN Reason: Dialysis Cath Heparin Flush Pantoprazole Sodium 40 mg/ (Sodium Chloride) 110 mls @ 330 mls/hr IV Q24 [facility] Last Admin: 02/25/19 10:15 Dose: 330 mls/hr Documented by: Vancomycin IV Pharmacy to Dose (1,500 ea/ Sodium Chloride) 500 mls @ 250 mls/hr IV PRN PRN; Protocol Dextrose (Dextrose 10%-Water) 250 mls @ 999 mls/hr IV X1 PRN; Protocol PRN Reason: HYPOGLYCEMIA Sodium Chloride () 250 mls @ 15 mls/hr IV .[id number] PRN PRN Reason: Saline Flush Last Infusion: 02/24/19 08:49 Dose: 0 mls/hr Documented by: Insulin Human Lispro (Humalog Kwikpen (Bkc)) 0 unit SC ACHS [facility]; Protocol Last Admin: 02/25/19 10:03 Dose: Not Given Documented by: Melatonin (Melatonin) 5 mg PO QHS PRN PRN Reason: SLEEP Last Admin: 02/25/19 01:33 Dose: 5 mg Documented by: Midodrine (Proamatine) 10 mg PO BID [facility] Last Admin: 02/25/19 10:15 Dose: 10 mg Documented by: Nystatin (Mycostatin Powder) 1 applic TOPICAL BID [facility]; Protocol Last Admin: 02/25/19 10:14 Dose: 1 applic Documented by: Ondansetron HCl (Zofran) 4 mg IV Q8H PRN PRN PRN Reason: NAUSEA/VOMITING Pramipexole Dihydrochloride (Mirapex) 0.5 mg PO QHS [facility] Last Admin: 02/24/19 22:47 Dose: 0.5 mg Documented by: Sodium Chloride () 10 ml IV UD PRN PRN Reason: Dialysis Catheter Flush Sodium Chloride () 10 - 40 ml IV UD PRN PRN Reason: SALINE FLUSH Last Admin: 02/25/19 10:15 Dose: 10 ml Documented by: Medical Necessity - Tobacco Use Smoking Status: Former smoker Route of nutrition/ use of supplements: [] Nutritional Intake: [] IV Site: [] [place] Catheter: [] - Assessment/Plan Antibiotics: [] Assessment/Plan: [] Active and Suspected Problems (Last Reviewed 02/19/19 @ 00:13 by Stew Aldrich MD) Septic shock (Acute) Septic shock due to MRSA - suspected permacath as source. Line removed 02/19, pus seen during procedure. Echo showed no veg. Repeat bcx neg since 02/20. Cont vanc. Overall much improved, now off pressors. Wbc normal, fever resolved. Plan for discharge will be 6 weeks of iv vanc dosed with HD, stop date 04/03/19. Given severity of illness and wish to avoid PJ, will write for the full 6 weeks total of abx. Will follow. ID followup prn.
--- NOTE | 2019-02-25 10:48 | PCM.TXEXTCAR ---
- Diet 02/20/19 09:11 Diet: 2 Gram Sodium Food consistency:: Mechanical Soft/Ground Liquid Consistency:: [place] Thick Is pt able to select menu?: Yes Diet Comments: supervision - Routine Orders/Code Status [facility] - Wound(s) Right Buttock Wound Type: Pressure Injury Groin Wound Type: Excoriation Scrotum Wound Type: Excoriation buttocks crease Wound Type: Skin Tear all groin/abd folds Wound Type: Excoriation RT GROIN Wound Type: Puncture RT 3&4 AND L 3,4&5 TOES Wound Type: Stasis Ulcer - Therapies Physical Therapy: Eval and Treat Occupational Therapy: Eval and Treat - Allergies/Procedures Done in Hospital Allergies/Adverse Reactions: Allergies mirtazapine [From Remeron] Allergy (Verified 02/18/19 18:52) forgetful, doesn't remember anything Sulfa (Sulfonamide Antibiotics) Allergy (Verified 02/18/19 18:52) bleeding from kidneys aspirin Adverse Reaction (Verified 02/18/19 18:52) Nausea oxycodone HCl [From Percodan] Adverse Reaction (Verified 02/18/19 18:52) Nausea oxycodone terephthalate [From Percodan] Adverse Reaction (Verified 02/18/19 18:52) Nausea - Type of Care/Length of Stay Estimated LOS: More Than 30 Days Type of Care Needed: Intermediate Rehab Potential: Fair Prognosis: Fair - Additional Orders/Day of Discharge Additional Orders: pt/inr q weekly Day of Discharge: 02/25/19 - Dietary and Speech Recommendations Dietitian Recommendations/Changes: Recommend 2200 calorie controlled, cardiac, low sodium diet w/ fluid restriction as indicated- consistencies per [employer]. Recommend 1 packet Vimal BID for wound healing. Will offer Nepro CarbSteady 120mL BID w/ meals for additional calories/protein if consumed. - Follow Up Care Primary Care Physician: Heraclio Whitehead MD [Primary Care Provider] -
--- NOTE | 2019-02-25 10:54 | DS.PCM_ITS ---
Discharge Date and Diagnosis - Problem List Patient Problems: Active and Suspected Problems (Last Reviewed 02/19/19 @ 00:13 by Stew Aldrich MD) Septic shock (Acute) Date of Admission: 02/18/19 Date of Discharge: 02/25/19 - Primary Discharge Diagnosis Active and Suspected Problems (Last Reviewed 02/19/19 @ 00:13 by Stew Aldrich MD) Septic shock (Acute) - Secondary Discharge Diagnosis Chronic Problems (Last Reviewed 02/19/19 @ 00:13 by Stew Aldrich MD) ESRD (end stage renal disease) on dialysis (Chronic) BPH (benign prostatic hyperplasia) (Chronic) Depression (Chronic) Hyperlipidemia (Chronic) IgA nephropathy (Chronic) Chronic gout (Chronic) Diabetes mellitus, type 2 (Chronic) DIET CONTROLLED Diastolic Dysfunction EF 60% (Chronic) KATHY on CPAP (Chronic) 16 CM WATER COPD (chronic obstructive pulmonary disease) (Chronic) With chronic respiratory failure On 3 L nasal cannula Left kidney mass (Chronic) Super obesity (Chronic) bmi 64 Chronic low back pain (Chronic) Pulmonary hypertension (Chronic) Paroxysmal atrial fibrillation (Chronic) Anemia of chronic renal failure (Chronic) Falls frequently (Chronic) Hospital Course and Treatment Imaging Results: Clinical Impression(s) from Imaging Studies Chest X-Ray 02/18/19 19:45 IMPRESSION: Cardiomegaly with pulmonary vascular prominence. Electronically Signed: Guanako Flores DO at 20:04 EST Tel [phone], Service support , Brain CT 02/19/19 04:08 IMPRESSION: No acute intracranial abnormality. Chronic changes as above. ASPECT 10. Individualized dose optimization techniques were used for this CT. at 0423 Reported and signed by: Ashok Mead MD N.B. : The above information has been verbally conveyed by Ashok Mead MD to Dr. Valdemar MD, on 02/19/2019 04:27:49 (ET). Electronically Signed: Ashok Mead MD at 4:21 EST Tel , Service support , Head/Neck CTA 02/19/19 04:08 IMPRESSION: Severe bilateral distal CCA into carotid bulb calcific plaque contributing to 20% stenosis on the right and 60% stenosis on the left. No dissection. Severe amounts of calcific plaque in the intracranial portion of the left vertebral artery. No stenosis or aneurysm perceived. No occlusion identified. Individualized dose optimization techniques were used for this CT. at 9071 Reported and signed by: Ashok Mead MD Electronically Signed: Ashok Mead MD at 4:58 EST Tel , Service support , ADDENDUM: 02/19/19 0508 IMPRESSION: Severe bilateral distal CCA into carotid bulb calcific plaque contributing to 20% stenosis on the right and 60% stenosis on the left. No dissection. Severe amounts of calcific plaque in the intracranial portion of the left vertebral artery. No stenosis or aneurysm perceived. No occlusion identified. Individualized dose optimization techniques were used for this CT. at 9244 Reported and signed by: Ashok Mead MD N.B. : The above information has been verbally conveyed by Ashok Mead MD to Dr. Valdemar MD, on 02/19/2019 05:01:40 (ET). Electronically Signed: Ashok Mead MD at 4:58 EST Tel , Service support , Operations: None Summary of Care Provided: Patient is a 69-year-old male with multiple comorbidities including end-stage renal disease on hemodialysis admitted from a assisted with fever. An assessment of MRSA septic shock secondary to infected hemodialysis catheter made. Admitted to the intensive care unit for further management 1. MRSA septic shock secondary to infected dialysis catheter ?Patient dialysis catheter was removed on 02/19/2019. Culture tip positive for MRSA. Patient blood cultures also came back positive for MRSA currently on Zosyn. Patient also remains hypotensive and is on Levophed. Currently being managed in the ICU as part of patient management had a 2D echo which did not demonstrate any valvular lesions. Repeat cultures were obtained results pending ?02/23/2019; Patient seen reported by nursing staff to be hallucinating this a.m. Still remains on Levophed for pressure support. Cultures negative to date. ?02/24/2019;Patient seen much more awake and conversational currently off pressors plan is for patient to be transferred from the ICU to the progressive care unit repeat cultures have remained negative to date ?02/25/2019: Decision was made to discharge patient home after discussion with infectious disease. Plan is for patient to be discharged with 6-week course of antibiotics to be administered with dialysis. Prescription was written by infectious disease. 2. Acute metabolic encephalopathy ?Secondary to septic shock as a result of an infected dialysis catheter management as discussed above ?02/23/2019; patient still remains encephalopathic 3. End-stage renal disease ?On hemodialysis Wednesdays and Fridays. Patient currently being dialyzed through an AV fistula 4. Diabetes mellitus type 2 With complications including diabetic nephropathy (end-stage renal disease and). Patient is currently on Accu-Cheks before meals and at bedtime with sliding scale coverage 5. Chronic paroxysmal A. fib ?Patient in sinus rhythm on Coumadin INR was elevated on admission 4.1 down to 1.5 as of 02/22/2019, Coumadin held in anticipation of possible perma catheter placement; Coumadin was resumed on discharge. 6. Diabetic neuropathy ?Patient is on gabapentin with patient being lethargic gabapentin currently on hold. 7. Thrombocytopenia ?Chronic monitoring with daily CBC 8. Chronic congestive heart failure with preserved ejection fraction ?Currently compensated 9. Pulmonary hypertension ?Patient is on supplemental oxygen 10. Morbid obesity with BMI of 50.4 ?Plan is to consult patient on lifestyle modification as well as weight loss. Patient may be a candidate for gastric bypass given his underlying comorbidities including diabetes mellitus type 2 11. Obstructive sleep apnea ?On CPAP at night 12. GERD ?On PPI 13. DVT prophylaxis ?patient is on Coumadin which is currently on hold in anticipation of possible PermCath placement. Neither Heparin or Lovenox could be initiated given patient low platelet counts. Currently on SCDs Patient Problems: Active and Suspected Problems (Last Reviewed 02/19/19 @ 00:13 by Stew Aldrich MD) Septic shock (Acute) Objective: GENERAL: Cooperative HEENT: Atraumatic; EYES; Anicteric, Normal Conjunctiva NECK; supple, normal thyroid, RESPIRATORY: Diminished to auscultation CARDIOVASCULAR: Regular S1 S2, GI: soft, normoactive bowel sounds, : No Renal angle tenderness; EXTREMITIES: No cyanosis, no clubbing, MUSCULOSKELETAL: no muscle waisting NEURO: no lateralizing signs. SKIN: Bruising left arm PSYCH; significantly flat affect - Physical Exam Vitals/I&O's: Vital Signs Temp Pulse Resp BP Pulse Ox 97.8 F 87 16 96/59 L 97 02/25/19 10:30 02/25/19 10:30 02/25/19 10:30 02/25/19 10:30 02/25/19 10:30 Oxygen Flow Rate (L/min) 3 Oxygen Delivery Method Nasal Cannula Weight: 141.5 kg Body Mass Index (BMI) 50.1 Finger Stick Blood Glucose 145 Intake and Output for Last 24 Hours 02/23/19 02/24/19 02/25/19 23:59 23:59 23:59 Intake Total 628.79 / 653.79 813.5 / 813.5 260 / 260 Output Total 0 / 0 600 / 600 0 / 0 Balance 628.79 / 653.79 213.5 / 213.5 260 / 260 Microbiology Past 72 Hours 02/20/19 06:30 Blood Culture (Wb) - Femoral Artery Blood Culture - Final No growth in 5 days. 02/21/19 06:50 Blood Culture (Wb) - Arterial Blood Culture - Preliminary No growth in 48 hours. Laboratory Results 02/24/19 11:17: POC Glucose 143 H 02/24/19 22:35: POC Glucose 149 H 02/25/19 05:05: WBC 6.2, RBC 4.05 L, Hgb 11.9 L, Hct 38.5 L, MCV 95.1 H, MCH 29.4, MCHC 30.9 L, RDW Std Deviation 58.3 H, RDW Coeff of [place] 16.7 H, Plt Count 119 L, MPV 11.1, Immature Gran % (Auto) 1.400 H, Neut % (Auto) 68.6, Lymph % (Auto) 13.6 L, [place] % (Auto) 11.6 H, Eos % (Auto) 4.3, Baso % (Auto) 0.5, Absolute Neuts (auto) 4.3, Absolute Lymphs (auto) 0.85, Nucleated RBC % 0.3 02/25/19 05:05: Sodium 137, Potassium 4.5, Chloride 100, Carbon Dioxide 30.0, Anion Gap 7, BUN 40 H, Creatinine 5.88 H, Estim Creat Clear Calc 10.70, Est GFR (MDRD) Af Amer 12 L, Est GFR (MDRD) Non-Af 10 L, BUN/Creatinine Ratio 6.8 L, Glucose 120 H, Calcium 9.0, Magnesium 2.4 Current Medications Acetaminophen (Tylenol) 650 mg RECTAL Q4H PRN PRN PRN Reason: Pain Score 1-10/Temp > 100.7 F Last Admin: 02/19/19 23:46 Dose: 650 mg Documented by: Albuterol/Ipratropium (Duoneb) 3 ml INHALATION Q6H.RT [facility] Last Admin: 02/25/19 07:23 Dose: 3 ml Documented by: Bisacodyl (Dulcolax) 5 mg PO DAILY PRN PRN PRN Reason: Constipation Budesonide (Pulmicort Aerosol) 0.5 mg INHALATION Q12H.RT [facility] Last Admin: 02/25/19 07:23 Dose: 0.5 mg Documented by: Calamine/Phenol (Calmoseptine Ointment) 1 applic TOPICAL BID [facility]; Protocol Last Admin: 02/25/19 10:13 Dose: 1 applicatio Documented by: Calcium Acetate (Phoslo Gel Cap) 1,334 mg PO BIDCM [facility] Last Admin: 02/25/19 10:15 Dose: 1,334 mg Documented by: Escitalopram Oxalate (Lexapro) 10 mg PO DAILY [facility] Last Admin: 02/25/19 10:14 Dose: 10 mg Documented by: Gabapentin (Neurontin) 300 mg PO BIDCM [facility] Last Admin: 02/25/19 10:15 Dose: 300 mg Documented by: Glucagon () 1 mg IM .X1 PRN PRN Reason: Hypoglycemia Heparin Sodium (Porcine) () 2,500 units IV UD PRN PRN Reason: Dialysis Cath Heparin Flush Pantoprazole Sodium 40 mg/ (Sodium Chloride) 110 mls @ 330 mls/hr IV Q24 [facility] Last Infusion: 02/25/19 10:36 Dose: Infused Documented by: Vancomycin IV Pharmacy to Dose (1,500 ea/ Sodium Chloride) 500 mls @ 250 mls/hr IV PRN PRN; Protocol Dextrose (Dextrose 10%-Water) 250 mls @ 999 mls/hr IV X1 PRN; Protocol PRN Reason: HYPOGLYCEMIA Sodium Chloride () 250 mls @ 15 mls/hr IV .[id number] PRN PRN Reason: Saline Flush Last Infusion: 02/24/19 08:49 Dose: 0 mls/hr Documented by: Insulin Human Lispro (Humalog Kwikpen (Bkc)) 0 unit SC ACHS [facility]; Protocol Last Admin: 02/25/19 10:03 Dose: Not Given Documented by: Melatonin (Melatonin) 5 mg PO QHS PRN PRN Reason: SLEEP Last Admin: 02/25/19 01:33 Dose: 5 mg Documented by: Midodrine (Proamatine) 10 mg PO BID [facility] Last Admin: 02/25/19 10:15 Dose: 10 mg Documented by: Nystatin (Mycostatin Powder) 1 applic TOPICAL BID [facility]; Protocol Last Admin: 02/25/19 10:14 Dose: 1 applic Documented by: Ondansetron HCl (Zofran) 4 mg IV Q8H PRN PRN PRN Reason: NAUSEA/VOMITING Pramipexole Dihydrochloride (Mirapex) 0.5 mg PO QHS [facility] Last Admin: 02/24/19 22:47 Dose: 0.5 mg Documented by: Sodium Chloride () 10 ml IV UD PRN PRN Reason: Dialysis Catheter Flush Sodium Chloride () 10 - 40 ml IV UD PRN PRN Reason: SALINE FLUSH Last Admin: 02/25/19 10:15 Dose: 10 ml Documented by: Discharge Diet: Renal Diet Home Medications: Medications to take at Discharge Calcium Acetate [Phoslo Gel Cap] 1,334 mg PO BID 11/08/16 ferrous sulfate 325 mg (65 mg iron) tablet,delayed release 325 mg PO BID tab 05/12/18 umeclidinium 62.5 mcg/actuation blister powder for inhalation 1 inh INHALATION LUNCH 05/12/18 B Complex W-C No.20/Folic Acid [Virt-Caps Softgel] 1 mg PO DAILY@1200 08/18/18 Docusate Sodium [Colace] 200 mg PO BID 08/18/18 Escitalopram Oxalate [Lexapro] 10 mg PO DAILY 08/18/18 Fluticasone/Vilanterol [Breo Ellipta 100-25 Mcg INH] 1 ea IH DAILY 08/18/18 Gabapentin [Neurontin] 300 mg PO BID 08/18/18 Pantoprazole Sodium [Protonix] 40 mg PO DAILY 08/18/18 Midodrine HCl 10 mg PO BID #60 tab 01/08/19 Acetaminophen [Tylenol] 650 mg PO Q4H PRN PRN 02/18/19 Ascorbic Acid 500 mg PO DAILY 02/18/19 Ipratropium/Albuterol Sulfate [Duoneb] 3 ml INHALATION Q6H.RT 02/18/19 Multivit,Tx with Iron,Minerals [Thera-M] 1 tab PO DAILY 02/18/19 Ondansetron HCl 8 mg PO BID PRN PRN 02/18/19 Warfarin Sodium 3 mg PO TU 02/18/19 Vancomycin IV Pharmacy to Dose 1,500 ea IV UD 38 Days #15 ea 02/25/19 Following Prescrptions Were Given to Patient: Vancomycin IV Pharmacy to Dose 1,500 ea IV UD 38 Days #15 ea Prescription Printed Primary Care Physician: Heraclio Whitehead MD [Primary Care Provider] - [facility]position[facility] facility Minutes spent on discharge:: 35 Patient Condition:: Stable Medical Necessity - Tobacco Use Smoking Status: Former smoker Meaningful Use Info Meaningful Use Diagnoses (Choose all that apply): None applicable Code Visit Inpatient E&M: 95368 Disch Hosp
--- NOTE | 2019-02-25 11:17 | NURSING ---
report given to Martha VALERIO at [facility]
--- NOTE | 2019-02-25 11:22 | CASEMGMT ---
Pt is ready for discharge back to [facility]. CLARA faxed all discharge paperwork to [facility]. CLARA called [facility] in [place], let RN Jacinta know pt is returning to [facility] today. She did receive the script for the IV antibiotics. CLARA called [facility], set up a 3pm ambulance. SW let pt know of the 3pm pickup time, and let pt's RN here also know of the 3pm pickup time. SW left Roslyn at [facility] a message letting her know pt is leaving here at 3pm also to return to [facility]. CLARA also with pt's permission let daughter Yanni a message letting her know pt is returning at 3pm to [facility]. No further needs, pt to [facility] today. REYNA Kirk
--- NOTE | 2019-02-25 11:34 | PCM.PN.PUL ---
Subjective: The patient was seen and examined at the bedside this morning. Events from the last 24 hours have been reviewed. The patient is currently afebrile, hemodynamically stable and maintaining appropriate oxygen saturations on 3 L/min via nasal cannula. Objective: The patient's most recent lab work, culture data and imaging studies have all been personally reviewed. Surface echocardiogram dated February 20 was notable for normal LV size and function with an ejection fraction of 65%. The RV was severely dilated with moderate global RV systolic dysfunction. Right ventricular systolic pressure was estimated to be 53 mmHg. Blood cultures dated February 18 were positive for MRSA. - Physical Exam Vitals/I&O's: Vital Signs Temp Pulse Resp BP Pulse Ox 97.8 F 87 16 96/59 L 97 02/25/19 10:30 02/25/19 10:30 02/25/19 10:30 02/25/19 10:30 02/25/19 10:30 Oxygen Flow Rate (L/min) 3 Oxygen Delivery Method Nasal Cannula Weight: 311 lb 15.265 oz Body Mass Index (BMI) 50.1 Finger Stick Blood Glucose 145 Intake and Output for Last 24 Hours 02/23/19 02/24/19 02/25/19 23:59 23:59 23:59 Intake Total 628.79 / 653.79 813.5 / 813.5 260 / 260 Output Total 0 / 0 600 / 600 0 / 0 Balance 628.79 / 653.79 213.5 / 213.5 260 / 260 General: Alert, Cooperative, No apparent distress HEENT: Atraumatic, PERRLA, Normocephalic Oral: No Gingival or Mucosal Lesions/ Ulcerations Neck: Supple, No Nodes, Trachea Midline Lungs: Diminished Cardiovascular: Regular Rhythm, Normal S1, Normal S2, No murmurs Abdomen: Bowel Sounds Present, Soft, Non Tender, Obese Extremities: No clubbing, No cyanosis, No edema, Diminished Peripheral Pulses Skin: - - No significant change from previous Musculoskeletal: No Muscle Wasting Lymphatic: No Cervical, Supraclavicular, or Inguinal Adenopathy Neurological: Neuro grossly intact Psych/Mental Status: Flat Affect Labs (Last 48 Hours) 02/23/19 02/23/19 02/23/19 11:16 16:36 21:16 WBC RBC Hgb Hct MCV MCH MCHC RDW Std Deviation RDW Coeff of [place] Plt Count MPV Immature Gran % (Auto) Neut % (Auto) Lymph % (Auto) [place] % (Auto) Eos % (Auto) Baso % (Auto) Absolute Neuts (auto) Absolute Lymphs (auto) Nucleated RBC % Sodium Potassium Chloride Carbon Dioxide Anion Gap BUN Creatinine Estim Creat Clear Calc Est GFR (MDRD) Af Amer Est GFR (MDRD) Non-Af BUN/Creatinine Ratio Glucose Calcium Magnesium Random Vancomycin POC Glucose 212 H 108 192 H 02/24/19 02/24/19 02/24/19 04:00 06:55 11:17 WBC RBC Hgb Hct MCV MCH MCHC RDW Std Deviation RDW Coeff of [place] Plt Count MPV Immature Gran % (Auto) Neut % (Auto) Lymph % (Auto) [place] % (Auto) Eos % (Auto) Baso % (Auto) Absolute Neuts (auto) Absolute Lymphs (auto) Nucleated RBC % Sodium Potassium Chloride Carbon Dioxide Anion Gap BUN Creatinine Estim Creat Clear Calc Est GFR (MDRD) Af Amer Est GFR (MDRD) Non-Af BUN/Creatinine Ratio Glucose Calcium Magnesium Random Vancomycin 19.3 H POC Glucose 135 H 143 H 02/24/19 02/25/19 02/25/19 22:35 05:05 05:05 WBC 6.2 RBC 4.05 L Hgb 11.9 L Hct 38.5 L MCV 95.1 H MCH 29.4 MCHC 30.9 L RDW Std Deviation 58.3 H RDW Coeff of [place]ie 16.7 H Plt Count 119 L MPV 11.1 Immature Gran % (Auto) 1.400 H Neut % (Auto) 68.6 Lymph % (Auto) 13.6 L [place] % (Auto) 11.6 H Eos % (Auto) 4.3 Baso % (Auto) 0.5 Absolute Neuts (auto) 4.3 Absolute Lymphs (auto) 0.85 Nucleated RBC % 0.3 Sodium 137 Potassium 4.5 Chloride 100 Carbon Dioxide 30.0 Anion Gap 7 BUN 40 H Creatinine 5.88 H Estim Creat Clear Calc 10.70 Est GFR (MDRD) Af Amer 12 L Est GFR (MDRD) Non-Af 10 L BUN/Creatinine Ratio 6.8 L Glucose 120 H Calcium 9.0 Magnesium 2.4 Random Vancomycin POC Glucose 149 H Microbiology 02/20/19 06:30 Blood Culture (Wb) - Femoral Artery Blood Culture - Final No growth in 5 days. 02/21/19 06:50 Blood Culture (Wb) - Arterial Blood Culture - Preliminary No growth in 48 hours. Clinical Impression(s) from Imaging Studies Chest X-Ray 02/18/19 19:45 IMPRESSION: Cardiomegaly with pulmonary vascular prominence. Electronically Signed: Guanako Flores DO at 20:04 EST Tel [phone], Service support , Brain CT 02/19/19 04:08 IMPRESSION: No acute intracranial abnormality. Chronic changes as above. ASPECT 10. Individualized dose optimization techniques were used for this CT. at 0423 Reported and signed by: Ashok Mead MD N.B. : The above information has been verbally conveyed by Ashok Mead MD to Dr. Valdemar MD, on 02/19/2019 04:27:49 (ET). Electronically Signed: Ashok Mead MD at 4:21 EST Tel , Service support , Head/Neck CTA 02/19/19 04:08 IMPRESSION: Severe bilateral distal CCA into carotid bulb calcific plaque contributing to 20% stenosis on the right and 60% stenosis on the left. No dissection. Severe amounts of calcific plaque in the intracranial portion of the left vertebral artery. No stenosis or aneurysm perceived. No occlusion identified. Individualized dose optimization techniques were used for this CT. at 0459 Reported and signed by: Ashok Mead MD Electronically Signed: Ashok Mead MD at 4:58 EST Tel , Service support , ADDENDUM: 02/19/19 0508 IMPRESSION: Severe bilateral distal CCA into carotid bulb calcific plaque contributing to 20% stenosis on the right and 60% stenosis on the left. No dissection. Severe amounts of calcific plaque in the intracranial portion of the left vertebral artery. No stenosis or aneurysm perceived. No occlusion identified. Individualized dose optimization techniques were used for this CT. at 5523 Reported and signed by: Ashok Mead MD N.B. : The above information has been verbally conveyed by Ashok Mead MD to Dr. Valdemar MD, on 02/19/2019 05:01:40 (ET). Electronically Signed: Ashok Mead MD at 4:58 EST Tel , Service support , Current Medications Acetaminophen (Tylenol) 650 mg RECTAL Q4H PRN PRN PRN Reason: Pain Score 1-10/Temp > 100.7 F Last Admin: 02/19/19 23:46 Dose: 650 mg Documented by: Albuterol/Ipratropium (Duoneb) 3 ml INHALATION Q6H.RT [facility] Last Admin: 02/25/19 07:23 Dose: 3 ml Documented by: Bisacodyl (Dulcolax) 5 mg PO DAILY PRN PRN PRN Reason: Constipation Budesonide (Pulmicort Aerosol) 0.5 mg INHALATION Q12H.RT [facility] Last Admin: 02/25/19 07:23 Dose: 0.5 mg Documented by: Calamine/Phenol (Calmoseptine Ointment) 1 applic TOPICAL BID [facility]; Protocol Last Admin: 02/25/19 10:13 Dose: 1 applicatio Documented by: [facility] ([facility] Admin: 02/25/19 10:15 Dose: 1,334 mg Documented by: Escitalopram Oxalate (Lexapro) 10 mg PO DAILY [facility] Last Admin: 02/25/19 10:14 Dose: 10 mg Documented by: [facility]ap[facility] ([facility]ontin) [facility] Last Admin: 02/25/19 10:15 Dose: 300 mg Documented by: Glucagon () 1 mg IM .X1 PRN PRN Reason: Hypoglycemia Heparin Sodium (Porcine) () 2,500 units IV UD PRN PRN Reason: Dialysis Cath Heparin Flush Pantoprazole Sodium 40 mg/ (Sodium Chloride) 110 mls @ 330 mls/hr IV Q24 [facility] Last Infusion: 02/25/19 10:36 Dose: Infused Documented by: Vancomycin IV Pharmacy to Dose (1,500 ea/ Sodium Chloride) 500 mls @ 250 mls/hr IV PRN PRN; Protocol Dextrose (Dextrose 10%-Water) 250 mls @ 999 mls/hr IV X1 PRN; Protocol PRN Reason: HYPOGLYCEMIA Sodium Chloride () 250 mls @ 15 mls/hr IV .[id number] PRN PRN Reason: Saline Flush Last Infusion: 02/24/19 08:49 Dose: 0 mls/hr Documented by: Insulin Human Lispro (Humalog Kwikpen (Bkc)) 0 unit SC ACHS [facility]; Protocol Last Admin: 02/25/19 10:03 Dose: Not Given Documented by: Melatonin (Melatonin) 5 mg PO QHS PRN PRN Reason: SLEEP Last Admin: 02/25/19 01:33 Dose: 5 mg Documented by: Midodrine (Proamatine) 10 mg PO BID [facility] Last Admin: 02/25/19 10:15 Dose: 10 mg Documented by: Nystatin (Mycostatin Powder) 1 applic TOPICAL BID [facility]; Protocol Last Admin: 02/25/19 10:14 Dose: 1 applic Documented by: Ondansetron HCl (Zofran) 4 mg IV Q8H PRN PRN PRN Reason: NAUSEA/VOMITING Pramipexole Dihydrochloride (Mirapex) 0.5 mg PO QHS [facility] Last Admin: 02/24/19 22:47 Dose: 0.5 mg Documented by: Sodium Chloride () 10 ml IV UD PRN PRN Reason: Dialysis Catheter Flush Sodium Chloride () 10 - 40 ml IV UD PRN PRN Reason: SALINE FLUSH Last Admin: 02/25/19 10:15 Dose: 10 ml Documented by: Medical Necessity - Tobacco Use Smoking Status: Former smoker Assessment/Plan All Active Problems (Last Reviewed 02/19/19 @ 00:13 by Stew Aldrich MD) Septic shock (Acute) RECOMMENDATIONS: 1. Continue vancomycin per infectious diseases recommendations. 2. Continue to wean supplemental oxygen to maintain saturations at or above 90%. 3. Encourage incentive spirometer use and mobilize patient as tolerated. 4. Continue bronchodilators. 5. Continue hemodialysis per nephrology recommendations. IMPRESSIONS: 1. Septic shock secondary to MRSA bacteremia Clinical suspicion for MRSA bacteremia secondary to hemodialysis line. Patient has grown blood cultures within 12 hours with MRSA indicating high bacterial burden at this time. Repeat blood cultures have not shown any growth to date. We will plan to continue vancomycin accordingly. The patient has been successfully weaned from vasopressor support and remains stable from a hemodynamic perspective with baseline low/normal blood pressures. 2. Metabolic encephalopathy secondary to #1 Improved. Altered mentation likely secondary to underlying infectious etiology. Continue current supportive measures with antibiotics and vasopressor support to maintain hemodynamic stability. Avoid sedating medications. 3. Coagulopathy secondary to Coumadin secondary to A. fib The patient presented with a supratherapeutic INR, which was reversed pharmacologically. The patient's Coumadin can likely be resumed at this time. 4. End-stage renal disease on hemodialysis Continue hemodialysis support per nephrology recommendations. The patient does have a known, tortuous fistula site, but does not appear to need a temporary hemodialysis line. 5. Uncontrolled diabetes mellitus Continue sliding scale insulin coverage as ordered. 6. Morbid obesity/peripheral artery disease/COPD/chronic diastolic CHF/history of osteomyelitis/secondary pulmonary hypertension Complicates care, management, recovery and prognosis. Physical therapy to continue to work with the patient. This note was generated with [employer] dictation software. It may contain incorrect words, spelling, and punctuation that were not noted in checking the note before signing. Code Visit Inpatient E&M: 10701 Subs Hosp L2
--- NOTE | 2019-02-25 11:35 | PHA.DC.MR ---
Pharmacy Service has performed discharge medication reconciliation for this patient upon transfer to [facility]. The patient's discharge medication list was reviewed for discrepancies and discrepancies were resolved. Home Medications Calcium Acetate [Phoslo Gel Cap] 1,334 mg PO BID 11/08/16 ferrous sulfate 325 mg (65 mg iron) tablet,delayed release 325 mg PO BID tab 05/12/18 umeclidinium 62.5 mcg/actuation blister powder for inhalation 1 inh INHALATION LUNCH 05/12/18 B Complex W-C No.20/Folic Acid [Virt-Caps Softgel] 1 mg PO DAILY@1200 08/18/18 Docusate Sodium [Colace] 200 mg PO BID 08/18/18 Escitalopram Oxalate [Lexapro] 10 mg PO DAILY 08/18/18 Fluticasone/Vilanterol [Breo Ellipta 100-25 Mcg INH] 1 ea IH DAILY 08/18/18 Gabapentin [Neurontin] 300 mg PO BID 08/18/18 Pantoprazole Sodium [Protonix] 40 mg PO DAILY 08/18/18 Midodrine HCl 10 mg PO BID #60 tab 01/08/19 Acetaminophen [Tylenol] 650 mg PO Q4H PRN PRN 02/18/19 Ascorbic Acid 500 mg PO DAILY 02/18/19 Ipratropium/Albuterol Sulfate [Duoneb] 3 ml INHALATION Q6H.RT 02/18/19 Multivit,Tx with Iron,Minerals [Thera-M] 1 tab PO DAILY 02/18/19 Ondansetron HCl 8 mg PO BID PRN PRN 02/18/19 Warfarin Sodium 3 mg PO TU 02/18/19 Vancomycin IV Pharmacy to Dose 1,500 ea IV UD 38 Days #15 ea 02/25/19
[2019-02-25 11:55] LABS: Bedside Glucose 108 mg/dL (70-110)
--- NOTE | 2019-02-25 15:16 | PN.RENAL_ITS ---
Subjective: no new complaints - Physical Exam Vitals/I&O's: Vital Signs Temp Pulse Resp BP Pulse Ox 98.4 F 89 18 111/53 L 93 02/25/19 14:18 02/25/19 14:18 02/25/19 14:18 02/25/19 14:18 02/25/19 14:18 Oxygen Flow Rate (L/min) 3 Oxygen Delivery Method Nasal Cannula Weight: 141.5 kg Body Mass Index (BMI) 50.1 Finger Stick Blood Glucose 145 Intake and Output for Last 24 Hours 02/23/19 02/24/19 02/25/19 23:59 23:59 23:59 Intake Total 628.79 / 653.79 813.5 / 813.5 500 / 500 Output Total 0 / 0 600 / 600 0 / 0 Balance 628.79 / 653.79 213.5 / 213.5 500 / 500 General: Alert, Oriented x3, Cooperative HEENT: Atraumatic, PERRLA, EOMI, Normocephalic Neck: Supple, No JVD, Negative Carotid Bruits Lungs: Clear to auscultation, Normal air movement Cardiovascular: Regular rate, No murmurs Abdomen: Bowel Sounds Present, Soft, Non Tender Extremities: No edema, Capillary Refill Less than 3 Seconds Skin: No rashes, No breakdown Musculoskeletal: No Tenderness to Palpation of Joints or Extremities Neurological: Cranial nerves II-XII grossly intact Psych/Mental Status: Normal Affect, Appropriate Microbiology Past 72 Hours 02/20/19 06:30 Blood Culture (Wb) - Femoral Artery Blood Culture - Final No growth in 5 days. 02/21/19 06:50 Blood Culture (Wb) - Arterial Blood Culture - Preliminary No growth in 48 hours. Laboratory Results 02/24/19 22:35: POC Glucose 149 H 02/25/19 05:05: WBC 6.2, RBC 4.05 L, Hgb 11.9 L, Hct 38.5 L, MCV 95.1 H, MCH 29.4, MCHC 30.9 L, RDW Std Deviation 58.3 H, RDW Coeff of Dixie 16.7 H, Plt Count 119 L, MPV 11.1, Immature Gran % (Auto) 1.400 H, Neut % (Auto) 68.6, Lymph % (A uto) 13.6 L, [place] % (Auto) 11.6 H, Eos % (Auto) 4.3, Baso % (Auto) 0.5, Absolute Neuts (auto) 4.3, Absolute Lymphs (auto) 0.85, Nucleated RBC % 0.3 02/25/19 05:05: Sodium 137, Potassium 4.5, Chloride 100, Carbon Dioxide 30.0, Anion Gap 7, BUN 40 H, Creatinine 5.88 H, Estim Creat Clear Calc 10.70, Est GFR (MDRD) Af Amer 12 L, Est GFR (MDRD) Non-Af 10 L, BUN/Creatinine Ratio 6.8 L, Glucose 120 H, Calcium 9.0, Magnesium 2.4 02/25/19 11:49: POC Glucose 108 Medical Necessity - Tobacco Use Smoking Status: Former smoker Assessment/Plan All Active Problems (Last Reviewed 02/19/19 @ 00:13 by Stew Aldrich MD) Septic shock (Acute) ESRD Anemia CKD MBD Septic shock resolved MRSA bacteremia likely line sepsis Pulmonary edema HD as per schedule dc today
== END 2019-02-25 15:04 | disposition skilled nursing facility (03) | DRG 314 ==
LOC: ED 19:04 → ICU 23:51 → PCU 02-24 17:09
PROVIDERS: Internal Medicine; Internal Medicine Critical Care Medicine; Surgery; Admitting Provider Hospitalist; Emergency Provider Emergency Medicine; Family Provider Internal Medicine; PCP Internal Medicine; Visit Provider Internal Medicine
DX: T82.7XXA Infection and inflammatory reaction due to other cardiac and vascular devices, implants and grafts, initial encounter (principal); A41.02 Sepsis due to Methicillin resistant Staphylococcus aureus; N18.6 End stage renal disease; R65.21 Severe sepsis with septic shock; G93.41 Metabolic encephalopathy; I48.20 Chronic atrial fibrillation, unspecified; I50.32 Chronic diastolic (congestive) heart failure; N02.8 Recurrent and persistent hematuria with other morphologic changes; Z68.43 Body mass index [BMI] 50.0-59.9, adult; J96.10 Chronic respiratory failure, unspecified whether with hypoxia or hypercapnia; Z99.81 Dependence on supplemental oxygen; D63.1 Anemia in chronic kidney disease; I95.89 Other hypotension; Z99.2 Dependence on renal dialysis; R79.1 Abnormal coagulation profile; E66.01 Morbid (severe) obesity due to excess calories; R29.6 Repeated falls; J44.9 Chronic obstructive pulmonary disease, unspecified; I65.23 Occlusion and stenosis of bilateral carotid arteries; D69.6 Thrombocytopenia, unspecified; E11.65 Type 2 diabetes mellitus with hyperglycemia; I73.9 Peripheral vascular disease, unspecified; G47.33 Obstructive sleep apnea (adult) (pediatric); E11.40 Type 2 diabetes mellitus with diabetic neuropathy, unspecified; I27.20 Pulmonary hypertension, unspecified; F32.9 Major depressive disorder, single episode, unspecified; E78.5 Hyperlipidemia, unspecified; Z79.01 Long term (current) use of anticoagulants; M1A.9XX0 Chronic gout, unspecified, without tophus (tophi); G89.29 Other chronic pain; M54.5 Low back pain; E11.22 Type 2 diabetes mellitus with diabetic chronic kidney disease; K21.9 Gastro-esophageal reflux disease without esophagitis; Z87.891 Personal history of nicotine dependence
CPT/HCPCS: 36415; 70450; 70496; 70498; 71045; 80048; 80053; 80202; 82962; 83605; 83735; 84100; 85025; 85610; 85730; 86900; 86901; 87040; 87070; 87077; 87149; 87186; 87205; 87804; 90937; 92507; 92526; 93005; 93306; 94640; 97110; 97116; 97162; 97166; 97530; 97802; 99251; 99285; J7030; J7040; J7050; P9017; Q9957; Q9967; A4216; C1751; C8929; G0257; G0463; J3490

== ENCOUNTER 2019-02-26 21:36 | Inpatient (IN) | payer MEDICARE, SELFPAY ==
[2019-02-19 00:31] VITALS: BMI 50.1
[2019-02-26 21:38] VITALS: BP 61/41; PULSE 86; RESP 16; TEMP 36.5; O2SAT 96; BMI 52.2
--- NOTE | 2019-02-26 21:53 | EKG12_ITS ---
Test Reason : UNRESPONSIVE Blood Pressure : / mmHG Vent. Rate : 088 BPM Atrial Rate : 087 BPM P-R Int : 000 ms QRS Dur : 144 ms QT Int : 416 ms P-R-T Axes : 000 -54 029 degrees QTc Int : 503 ms Junctional rhythm Left axis deviation Right bundle branch block Inferior infarct , age undetermined Cannot rule out Anteroseptal infarct , age undetermined Abnormal ECG Confirmed by YOLY CORTES, FATOUMATA ([id number]), commercial production editor TOSHIA CAPPS ([id number]) on 03/01/2019 1:37:47 PM Referred By: Stew Aldrich Confirmed By:FATOUMATA FREDERICK MD
[2019-02-26 22:00] VITALS: BP 67/46; PULSE 73; RESP 16; O2SAT 100
--- NOTE | 2019-02-26 22:03 | RAD_ITS ---
STUDY: X-RAY CHEST REASON FOR EXAM: Male, 69 years old. Altered level of consciousness. TECHNIQUE: AP portable upright chest. COMPARISON: 02/08/2019 frontal chest. FINDINGS: Interval removal right IJ large bore catheter. Elevation right hemidiaphragm, mild cardiac enlargement, mild perihilar interstitial and vascular prominence, similar to previous. RAD/Chest 1 View (Portable) IMPRESSION: Interval removal right IJ large bore catheter. Otherwise similar to prior. Electronically Signed: Brodie Mojica, at 22:20 EST Tel , Service support ,
[2019-02-26 22:23] LABS: Absolute Lymphocyte Count 0.76 X10^3/uL (0.83-4.51); Absolute Neutrophil Count 4.1 X10^3/uL (2.0-7.7); Basophil# 0.03 X10^3/uL; Basophil% 0.5 % (0-1); Eosinophil# 0.32 X10^3/uL; Eosinophils% 5.3 % (0-5); Hematocrit 42.2 % (40-54); Hemoglobin 12.5 g/dL (13.0-16.5); Lymphocyte # 0.76 X10^3/ul (4.0); Lymphocyte % 12.6 % (19-41); Mean Corp Hgb Conc 29.6 g/dL (32-36); Mean Corpuscular Hgb 29.3 pg (27.0-32.0); Mean Corpuscular Volume 98.8 fL (80-94); Mean Platelet Vol. 11.8 fl (6.2-12.0); Monocyte# 0.78 X10^3/uL; Monocyte% 12.9 % (0-10); NRBC Flagged by Analyzer 0.8 % (0-5); Neutrophil # 4.07 X10^3/uL (2.7-7.7); Neutrophil % 67.5 % (47-70); Platelet Count 167 K/mm3 (150-450); RBC Distribution Width CV 17.2 % (11.6-14.6); RBC Distribution Width SD 61.9 fl (35.1-43.9); Red Blood Count 4.27 M/mm3 (4.6-6.2)
[2019-02-26 22:24] LABS: International Normalized Ratio 1.9; Prothrombin Time (Protime)PT. 21.3 SECONDS (11.7-14.9)
[2019-02-26] MEDS: 0.9% Normal Saline 1,000 ML 150 ML IV (22:30)
[2019-02-26 22:35] VITALS: BP 77/26; PULSE 71; RESP 20; O2SAT 100
[2019-02-26 22:46] VITALS: BP 64/23; PULSE 75; RESP 15; TEMP 37.1; O2SAT 100
[2019-02-26 23:00] VITALS: BP 59/44; PULSE 76; RESP 15; TEMP 36.9; O2SAT 100
--- NOTE | 2019-02-26 23:05 | ED.RN ---
dR Montero CONTINUES TO BE AWARE OF LOW BP. NO NEW ORDERS RECEIVED. WILL CONTINUE TO MONITOR.
[2019-02-26 23:27] LABS: Anion Gap 6 (5-15); BUN 29 mg/dL (7-18); BUN/Creat Ratio 6.3 RATIO (10-20); Calcium,Total 8.5 mg/dL (8.5-10.1); Chloride 104 mmol/L (98-107); Creatinine, Serum 4.62 mg/dL (0.70-1.30); EST Glomerular Filtration Rate 14 mL/min (>60); Est Glom Filt Rate - Afr Amer 16 mL/min (>60); Estimated Creatinine Clearance 13.13 ml/min; Glucose 117 mg/dL (74-106); Potassium 3.9 mmol/L (3.5-5.1); Sodium Level 141 mmol/L (136-145)
[2019-02-26 23:30] VITALS: BP 86/46; PULSE 84; RESP 20; O2SAT 97
--- NOTE | 2019-02-26 23:34 | HP.PCM_ITS ---
Problem List (1) Hypotension Status: Acute Qualifiers: Hypotension type: unspecified hypotension type Qualified Code(s): I95.9 - Hypotension, unspecified (2) ESRD (end stage renal disease) on dialysis Status: Chronic (3) BPH (benign prostatic hyperplasia) Status: Chronic Qualifiers: Lower urinary tract symptom presence: symptoms absent Qualified Code(s): N40.0 - Benign prostatic hyperplasia without lower urinary tract symptoms (4) Depression Status: Chronic (5) Hyperlipidemia Status: Chronic Qualifiers: Hyperlipidemia type: pure hypercholesterolemia Qualified Code(s): E78.00 - Pure hypercholesterolemia, unspecified; E78.0 - Pure hypercholesterolemia (6) IgA nephropathy Status: Chronic (7) Chronic gout Status: Chronic (8) Diabetes mellitus, type 2 Status: Chronic Qualifiers: Diabetes mellitus keno terminal 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 insulin 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: with retirement use Diabetes mellitus complication status: with kidney complications Diabetes mellitus complication detail: with chronic kidney disease Chronic kidney disease stage: on chronic dialysis Qualified Code(s): E11.22 - Type 2 diabetes mellitus with diabetic chronic kidney disease; N18.6 - End stage renal disease; Z79.4 - long term acute care registered nurse (current) use of insulin; Z99.2 - Dependence on renal dialysis Comment: DIET CONTROLLED (9) Diastolic Dysfunction EF 60% Status: Chronic (10) KATHY on CPAP Status: Chronic 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 (11) COPD (chronic obstructive pulmonary disease) Status: Chronic Qualifiers: COPD type: unspecified COPD Qualified Code(s): J44.9 - Chronic obstructive pulmonary disease, unspecified Comment: With chronic respiratory failure On 3 L nasal cannula (12) Left kidney mass Status: Chronic (13) Super obesity Status: Chronic Comment: bmi 64 (14) Chronic low back pain Status: Chronic (15) Pulmonary hypertension Status: Chronic (16) Paroxysmal atrial fibrillation Status: Chronic (17) Anemia of chronic renal failure Status: Chronic Qualifiers: Chronic kidney disease stage: stage 5 Qualified Code(s): N18.5 - Chronic kidney disease, stage 5; D63.1 - Anemia in chronic kidney disease; D63.1 - Anemia in chronic kidney disease (18) Falls frequently Status: Chronic History of Present Illness Date of Admission: 02/27/19 Chief Complaint: low blood pressure The patient is a 69 year old M with a significant history of end-stage renal disease on dialysis; chronic hypotension on midodrine who was recently admitted for septic shock and discharged to intermediate returning from the intermediate because of hypotension after dialysis. Patient denies any symptoms. At the emergency department his troponin was noted to be elevated. Patient was admitted on 02/18/2019 for septic shock secondary to infected dialysis catheter and was discharged on 02/25/2019. 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 COPD (chronic obstructive pulmonary disease) (Chronic) With chronic respiratory failure On 3 L nasal cannula Left kidney mass (Chronic) Super obesity (Chronic) bmi 64 Chronic low back pain (Chronic) Pulmonary hypertension (Chronic) Paroxysmal atrial fibrillation (Chronic) Anemia of chronic renal failure (Chronic) Falls frequently (Chronic) Medical History: Medical History (Last Reviewed 02/27/19 @ 02:45 by Stew Aldrich MD) ESRD (end stage renal disease) on dialysis (Chronic) N18.6, Z99.2 Benign hypertension (Inactive) I10 BPH (benign prostatic hyperplasia) (Chronic) Depression (Chronic) F32.9 Hyperlipidemia (Chronic) E78.5 IgA nephropathy (Chronic) N02.8 Chronic gout (Chronic) [id number] Diabetes mellitus, type 2 (Chronic) E11.9 DIET CONTROLLED Diastolic Dysfunction EF 60% (Chronic) COPD (chronic obstructive pulmonary disease) (Chronic) J44.9 With chronic respiratory failure On 3 L nasal cannula Left kidney mass (Chronic) N28.89 Chronic low back pain (Chronic) M54.5, G89.29 Pulmonary hypertension (Chronic) I27.2 Paroxysmal atrial fibrillation (Chronic) I48.0 Anemia of chronic renal failure (Chronic) N18.9, D63.1 Atrial fibrillation I48.91 Osteomyelitis (Inactive) M86.9 distal phalanx of the middle finger on the left hand Vertebral osteomyelitis, acute (Inactive) M46.20 12/22/14 24 hours no growth. 12/21/14 1/2 cultures w/ staph aureus. Suspected source vertebral osteomyelitis, unable to confirm as unable to obtain GOLD standard MRI secondary to habitus. Allergies mirtazapine [From Remeron] Allergy (Verified 02/26/19 21:49) forgetful, doesn't remember anything Sulfa (Sulfonamide Antibiotics) Allergy (Verified 02/26/19 21:49) bleeding from kidneys aspirin Adverse Reaction (Verified 02/26/19 21:49) Nausea oxycodone HCl [From Percodan] Adverse Reaction (Verified 02/26/19 21:49) Nausea oxycodone terephthalate [From Percodan] Adverse Reaction (Verified 02/26/19 21:49) Nausea Home Medications: Ambulatory Orders Medication Instructions Recorded Calcium Acetate [Phoslo Gel Cap] 1,334 mg PO BID 11/08/16 ferrous sulfate 325 mg (65 mg 325 mg PO BID tab 05/12/18 iron) tablet,delayed release umeclidinium 62.5 mcg/actuation 1 inh INHALATION LUNCH 05/12/18 blister powder for inhalation B Complex W-C No.20/Folic Acid 1 mg PO DAILY@1200 08/18/18 [Virt-Caps Softgel] Docusate Sodium [Colace] 200 mg PO BID 08/18/18 Escitalopram Oxalate [Lexapro] 10 mg PO DAILY 08/18/18 Fluticasone/Vilanterol [Breo 1 ea IH DAILY 08/18/18 Ellipta 100-25 Mcg INH] Gabapentin [Neurontin] 300 mg PO BID 08/18/18 Pantoprazole Sodium [Protonix] 40 mg PO DAILY 08/18/18 Midodrine HCl 10 mg PO BID #60 tab 01/08/19 Acetaminophen [Tylenol] 650 mg PO Q4H PRN PRN 02/18/19 Ascorbic Acid 500 mg PO DAILY 02/18/19 Ipratropium/Albuterol Sulfate 3 ml INHALATION Q6H.RT 02/18/19 [Duoneb] Multivit,Tx with Iron,Minerals 1 tab PO DAILY 02/18/19 [Thera-M] Ondansetron HCl 8 mg PO BID PRN PRN 02/18/19 Warfarin Sodium 3 mg PO TU 02/18/19 Vancomycin IV Pharmacy to Dose 1,500 ea IV UD 38 Days #15 ea 02/25/19 Surgical History: Surgical History (Last Reviewed 02/27/19 @ 02:45 by Stew Aldrich MD) History of arteriovenostomy for renal dialysis Z99.2 History of cholecystectomy Z90.49 History of colonoscopy Z98.890 History of total bilateral knee replacement Z96.653 Status post biopsy of kidney Z98.890 Surgical History: colectomy, total knee arthroplasty, - Psychiatric History: No pertinent psych hx Lives: Intermediate Smoking Status: Never smoker Alcohol: None - *Family History Maternal History Items: COPD, Diabetes, Heart Disease, Hypertension - He, Pulmonary Disease, Renal Disease Paternal History Items: No pertinent history Review of Systems Constitutional: Denies: Chills, Fever, Weight Change HEENT: Denies: Head Aches, Sinus Congestion, Sinus Drainage Cardiovascular: Denies: Chest Pain, Palpitations Respiratory: Denies: Cough, Shortness of breath at rest, Sputum production Gastrointestinal: Denies: Abdominal Pain, Nausea, Vomiting Genitourinary: Denies: Dysuria Musculoskeletal: Denies: Joint Pain, Joint Tenderness Skin: Denies: Rash, Wounds Neurological: Denies: Numbness, Tingling, Focal weakness Psychiatric: Denies: Anxiety, Depression, Homicidal Ideations, Suicidal Ideations Hematologic/ Lymphatic: Denies: Easy Bruising, Easy Bleeding VTE Information - Inpt Only VTE Present on Admission: No VTE Mechan Device Prophylaxis: None VTE Pharm Prophylaxis ordered?: No Reason prophylaxis not ordered:: Treatment Not Indicated - On Coumadin for A. fib; continued - Physical Exam Vitals/I&O's: Vital Signs Temp Pulse Resp BP Pulse Ox 98.4 F 76 15 59/44 L 100 02/26/19 23:00 02/26/19 23:00 02/26/19 23:00 02/26/19 23:00 02/26/19 23:00 Oxygen Flow Rate (L/min) 4 Oxygen Delivery Method Nasal Cannula Weight: 142.2 kg Body Mass Index (BMI) 52.2 Finger Stick Blood Glucose 145 Intake and Output for Last 24 Hours 02/24/19 02/25/19 02/26/19 23:59 23:59 23:59 Intake Total 500 / 500 Balance 500 / 500 General: Alert, Oriented x3, Cooperative, - - Obese HEENT: Atraumatic, PERRLA, EOMI, Normocephalic Neck: Supple, No JVD, Negative Carotid Bruits Lungs: Clear to auscultation, Normal air movement Cardiovascular: Regular rate, No murmurs Abdomen: Bowel Sounds Present, Soft, Non Tender, Obese Extremities: No edema, Capillary Refill Less than 3 Seconds, - - Loss of parts of digits of the first 2 toes on left hand; loss of parts of digits of the first 3 toes of the right foot Skin: No rashes, No breakdown Musculoskeletal: No Tenderness to Palpation of Joints or Extremities Neurological: Cranial nerves II-XII grossly intact, - - Less talkative; answering mostly in short sentences. Psych/Mental Status: Normal Affect, Appropriate Laboratory Results 02/26/19 22:00: WBC 6.0, RBC 4.27 L, Hgb 12.5 L, Hct 42.2, MCV 98.8 H, MCH 29.3, MCHC 29.6 L, RDW Std Deviation 61.9 H, RDW Coeff of [place] 17.2 H, Plt Count 167, MPV 11.8, Immature Gran % (Auto) 1.200 H, Neut % (Auto) 67.5, Lymph % (Auto) 12.6 L, [place] % (Auto) 12.9 H, Eos % (Auto) 5.3 H, Baso % (Auto) 0.5, Absolute Neuts (auto) 4.1, Absolute Lymphs (auto) 0.76 L, Nucleated RBC % 0.8 02/26/19 22:00: PT 21.3 H, INR 1.9 02/26/19 22:00: Sodium Cancelled, Potassium Cancelled, Chloride Cancelled, Carbo n Dioxide Cancelled, Anion Gap Cancelled, BUN Cancelled, Creatinine Cancelled, Estim Creat Clear Calc Cancelled, Est GFR (MDRD) Af Amer Cancelled, Est GFR (MDRD) Non-Af Cancelled, BUN/Creatinine Ratio Cancelled, Glucose Cancelled, Calcium Cancelled, Troponin I Cancelled 02/26/19 22:55: Sodium 141, Potassium 3.9, Chloride 104, Carbon Dioxide 31.0, Anion Gap 6, BUN 29 H, Creatinine 4.62 H, Estim Creat Clear Calc 13.13, Est GFR (MDRD) Af Amer 16 L, Est GFR (MDRD) Non-Af 14 L, BUN/Creatinine Ratio 6.3 L, Glucose 117 H, Calcium 8.5, Troponin I 0.117 H Current Medications Sodium Chloride () 1,000 mls @ 150 mls/hr IV .Q6H40M [facility] Last Admin: 02/26/19 22:30 Dose: 150 mls/hr Documented by: Assessment/Plan All Active Problems (Last Reviewed 02/27/19 @ 02:45 by Stew Aldrich MD) Hypotension (Acute) The patient is a 69 year old M with a significant history of end-stage renal disease on dialysis; chronic hypotension on midodrine who was recently admitted for septic shock and discharged to intermediate returning from the intermediate because of hypotension after dialysis. Hypotension On presentation his systolic blood pressure was predominantly in the 60s Last echocardiogram was 02/19/2019 it showed limited ejection fraction of 65%. Diastolic function was indeterminate. It showed moderate global right ventricular systolic dysfunction. His left atrium was moderately enlarged. Right atrium was mildly enlarged. Further patient had some valvular disease. Patient does not appear septic at this time. He has no other markers of SIRS except hypotension which may be attributed to dialysis. Patient has bandemia of 1.2% but this does not meet SIRS criteria as it is less than 10%. Received a liter of normal saline at the emergency department and was started on normal saline 150 mL's per hour. Will de-escalate IVF to 100 MLS per hour because patient is a dialysis patient. We will try low- dose Levophed to peripheral line. Trend CBC and BMP Technology Solutions Architect consult Infected dialysis catheter Was on home vancomycin. We will continue vancomycin; pharmacy to dose. End-stage renal disease on dialysis Nephrology consult Low potassium and low phosphate diet; 1800 kcal diet Diabetes Diet controlled On presentation his blood glucose was not elevated on BMP. Low potassium and low phosphate diet; 1800 kcal diet Elevated troponin Likely secondary to demand ischemia. Trend. Atrial Fibrillation On presentation patient was in sinus rhythm with right bundle branch block. INR is subtherapeutic at 1.9. We will give Coumadin 5 mg x 1. INR in a.m. Dose Coumadin accordingly. COPD On home long-acting laAMA; ICS?LABA and a DuoNeb. We will continue patient on DuoNeb. DVT prophylaxis On Coumadin for Afib. De-escalate Coumadin since INR was supra therapeutic. Code Visit Inpatient E&M: 32742 Init Hosp L3
--- NOTE | 2019-02-26 23:46 | ED.DCSUM_ITS ---
- ER Visit Summary Date of Service: 02/26/19 Chief Complaint: [Hypotension and mental status change] History of present illness: Patient is a 69-year-old male presents with mental status change and hypotension that started this evening. Patient was just discharged from this hospital yesterday and was admitted for septic shock related to an infected port in his left chest. Patient had the port removed. Today he came back from dialysis and longterm staff noted that he was hypotensive and he complained of some shortness of breath. When patient was laid flat he complained of chest pain as he is unable to lay flat typically. On arrival to the emergency department he denies any chest pain or shortness of b reath. Patient denies any abdominal pain. He denies headache. Patient's blood pressure normally is in the 90s systolic. Patient has history of COPD, type 2 diabetes, high cholesterol, hypo-tension, end-stage renal disease, and history of atrial fibrillation. Patient is on Coumadin.] Physical Examination: [HEENT-PERRLA, EOMI. Cranial nerves II through XII gross ly intact. TMs clear. Mucous membranes moist. No adenopathy. Cardiovascular-regular rate and rhythm without murmur or ectopy Lungs-clear to auscultation, chest wall stable without crepitus or subcu emphysema Abdomen-normoactive bowel sounds, soft, nontender, no rebound or rigidity, no peritoneal signs. Extremities-intact ?4, normal range of motion, normal pulses, atraumatic. Patient does have +2 edema both lower extremities.] Test Results: [EKG obtained arrival shows sinus rhythm with a ventricular rate of 88 bpm with no acute ST segment changes. CBC with differential shows a white count of 6.0, hemoglobin 12.5, hematocrit 42, platelets 167. Chemistries unremarkable. BUN was 29 and creatinine 4.62. INR was 1.9. Troponin was 0.117. Chest x-ray showed nothing acute.] Emergency Department Course and Treatment: [Patient placed on continuous groundwater monitoring technician and IV lines were established in his right upper extremity. Patient was given a liter normal saline fluid bolus and his blood pressure initially did respond into the 70 systolic. Patient was then given normal saline at 150 cc an hour. Patient does not seem to be in any acute distress. He is not diaphoretic. He arouses easily and follows commands. At this point I feel his hypotension may be related to the dialysis rather than sepsis.] Treatment Plan: [Admit] Disposition: [Admit] Impression: [Hypotension Elevated troponin of unknown significance] This note was generated with Smeet dictation software. It may contain incorrect words, spelling, and punctuation that were not noted in review of the chart prior to signing ED Disposition - Plan for ED Patient: Referrals: Heraclio Whitehead MD [Primary Care Provider] -
[2019-02-27] VITALS (69 sets, daily range): BP systolic 49–132; BP diastolic 18–99; PULSE 67–94; RESP 13–31; TEMP 35.9–37.2; O2SAT 92–100; BMI 43.7; BMI 43.8
[2019-02-27] MEDS: 0.9% Normal Saline 1,000 ML 100 ML IV (01:12)
[2019-02-27 01:26] LABS: Bedside Glucose 117 mg/dL (70-110)
[2019-02-27] MEDS: Ipratropium/Albuterol Sulfate 3 ML AMPUL.NEB INHALATION ×4 (01:43→19:14)
[2019-02-27 04:31] LABS: Absolute Lymphocyte Count 1.08 X10^3/uL (0.83-4.51); Absolute Neutrophil Count 4.4 X10^3/uL (2.0-7.7); Basophil# 0.05 X10^3/uL; Basophil% 0.7 % (0-1); Eosinophils% 5.9 % (0-5); Hematocrit 44.4 % (40-54); Hemoglobin 12.7 g/dL (13.0-16.5); Lymphocyte # 1.08 X10^3/ul (4.0); Lymphocyte % 15.9 % (19-41); Mean Corp Hgb Conc 28.6 g/dL (32-36); Mean Corpuscular Hgb 29.1 pg (27.0-32.0); Mean Corpuscular Volume 101.6 fL (80-94); Mean Platelet Vol. 11.4 fl (6.2-12.0); Monocyte# 0.81 X10^3/uL; Monocyte% 11.9 % (0-10); NRBC Flagged by Analyzer 0.9 % (0-5); Neutrophil # 4.35 X10^3/uL (2.7-7.7); Neutrophil % 64.3 % (47-70); Platelet Count 179 K/mm3 (150-450); RBC Distribution Width CV 17.2 % (11.6-14.6); RBC Distribution Width SD 63.9 fl (35.1-43.9); Red Blood Count 4.37 M/mm3 (4.6-6.2); White Blood Count 6.8 K/mm3 (4.4-11.0)
[2019-02-27 04:39] LABS: International Normalized Ratio 1.8; Prothrombin Time (Protime)PT. 21.1 SECONDS (11.7-14.9)
[2019-02-27 04:48] LABS: Anion Gap 5 (5-15); BUN 29 mg/dL (7-18); BUN/Creat Ratio 5.7 RATIO (10-20); Calcium,Total 8.8 mg/dL (8.5-10.1); Chloride 102 mmol/L (98-107); EST Glomerular Filtration Rate 12 mL/min (>60); Est Glom Filt Rate - Afr Amer 15 mL/min (>60); Estimated Creatinine Clearance 14.11 ml/min; Glucose 134 mg/dL (74-106); Potassium 4.3 mmol/L (3.5-5.1); Sodium Level 139 mmol/L (136-145)
[2019-02-27] MEDS: 0.9% Saline Lock 10 ML Syringe IV ×3 (05:27→07:57)
[2019-02-27] MEDS: Lactated Ringers 1,000 ML 999 ML IV ×2 (06:46→07:56)
--- NOTE | 2019-02-27 06:48 | PCM.CON.CC ---
Reason for Consult Date of Consultation: 02/27/19 Reason for Consultation: Hypotension History of Present Illness: The patient is a 69-year-old male, with a history as outlined below, who presented to the emergency department on the evening of February 26 [facility] over concerns for hypotension. The patient has known end-stage renal disease and is on scheduled hemodialysis. He has low/normal blood pressure readings at his baseline and is on scheduled midodrine as an outpatient. The patient was just discharged from the hospital in February 25 after having spent a week admitted with a septic shock. The patient had MRSA bacteremia from an infected hemodialysis line. On presentation to the emergency department, the patient was noted to be afebrile with a documented presenting blood pressure of 61/41 mmHg. Laboratory evaluation revealed no evidence of a leukocytosis. Coagulation profile revealed an INR of 1.9. Chemistry profile was significant only for chronic elevations in his creatinine. Initial troponin was mildly elevated at 0.117. Plain film chest x-ray revealed no acute findings. The patient received supplemental IV fluid hydration and then was admitted to the medical intensive care unit. Overnight, the patient has been maintained on Levophed at 10 mcg/min to maintain hemodynamic stability. Thus far, the patient has only received a 1 L fluid bolus and is currently receiving maintenance fluids at 150 cc/h. 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 COPD (chronic obstructive pulmonary disease) (Chronic) With chronic respiratory failure On 3 L nasal cannula Left kidney mass (Chronic) Super obesity (Chronic) bmi 64 Chronic low back pain (Chronic) Pulmonary hypertension (Chronic) Paroxysmal atrial fibrillation (Chronic) Anemia of chronic renal failure (Chronic) Falls frequently (Chronic) Medical History: Medical History (Last Reviewed 02/27/19 @ 02:45 by Stew Aldrich MD) ESRD (end stage renal disease) on dialysis (Chronic) N18.6, Z99.2 Benign hypertension (Inactive) I10 BPH (benign prostatic hyperplasia) (Chronic) Depression (Chronic) F32.9 Hyperlipidemia (Chronic) E78.5 IgA nephropathy (Chronic) N02.8 Chronic gout (Chronic) [id number] Diabetes mellitus, type 2 (Chronic) E11.9 DIET CONTROLLED Diastolic Dysfunction EF 60% (Chronic) COPD (chronic obstructive pulmonary disease) (Chronic) J44.9 With chronic respiratory failure On 3 L nasal cannula Left kidney mass (Chronic) N28.89 Chronic low back pain (Chronic) M54.5, G89.29 Pulmonary hypertension (Chronic) I27.2 Paroxysmal atrial fibrillation (Chronic) I48.0 Anemia of chronic renal failure (Chronic) N18.9, D63.1 Atrial fibrillation I48.91 Osteomyelitis (Inactive) M86.9 distal phalanx of the middle finger on the left hand Vertebral osteomyelitis, acute (Inactive) M46.20 12/22/14 24 hours no growth. 12/21/14 1/2 cultures w/ staph aureus. Suspected source vertebral osteomyelitis, unable to confirm as unable to obtain GOLD standard MRI secondary to habitus. Allergies mirtazapine [From Remeron] Allergy (Verified 02/26/19 21:49) forgetful, doesn't remember anything Sulfa (Sulfonamide Antibiotics) Allergy (Verified 02/26/19 21:49) bleeding from kidneys aspirin Adverse Reaction (Verified 02/26/19 21:49) Nausea oxycodone HCl [From Percodan] Adverse Reaction (Verified 02/26/19 21:49) Nausea oxycodone terephthalate [From Percodan] Adverse Reaction (Verified 02/26/19 21:49) Nausea Home Medications: Ambulatory Orders Medication Instructions Recorded Calcium Acetate [Phoslo Gel Cap] 1,334 mg PO BID 11/08/16 ferrous sulfate 325 mg (65 mg 325 mg PO BID tab 05/12/18 iron) tablet,delayed release umeclidinium 62.5 mcg/actuation 1 inh INHALATION LUNCH 05/12/18 blister powder for inhalation B Complex W-C No.20/Folic Acid 1 mg PO DAILY@1200 08/18/18 [Virt-Caps Softgel] Docusate Sodium [Colace] 200 mg PO BID 08/18/18 Escitalopram Oxalate [Lexapro] 10 mg PO DAILY 08/18/18 Fluticasone/Vilanterol [Breo 1 ea IH DAILY 08/18/18 Ellipta 100-25 Mcg INH] Gabapentin [Neurontin] 300 mg PO BID 08/18/18 Pantoprazole Sodium [Protonix] 40 mg PO DAILY 08/18/18 Midodrine HCl 10 mg PO BID #60 tab 01/08/19 Acetaminophen [Tylenol] 650 mg PO Q4H PRN PRN 02/18/19 Ascorbic Acid 500 mg PO DAILY 02/18/19 Ipratropium/Albuterol Sulfate 3 ml INHALATION Q6H.RT 02/18/19 [Duoneb] Multivit,Tx with Iron,Minerals 1 tab PO DAILY 02/18/19 [Thera-M] Ondansetron HCl 8 mg PO BID PRN PRN 02/18/19 Warfarin Sodium 3 mg PO TU 02/18/19 Vancomycin IV Pharmacy to Dose 1,500 ea IV UD 38 Days #15 ea 02/25/19 Surgical History: Surgical History (Last Reviewed 02/27/19 @ 02:45 by Stew Aldrich MD) History of arteriovenostomy for renal dialysis Z99.2 History of cholecystectomy Z90.49 History of colonoscopy Z98.890 History of total bilateral knee replacement Z96.653 Status post biopsy of kidney Z98.890 Surgical History: colectomy, total knee arthroplasty, - Psychiatric History: No pertinent psych hx Lives: [facility] Smoking Status: Never smoker Alcohol: None - *Family History Maternal History Items: COPD, Diabetes, Heart Disease, Hypertension - He, Pulmonary Disease, Renal Disease Paternal History Items: No pertinent history Review of Systems Constitutional: Denies: Chills, Fever Eyes: Denies: Blurred vision, Double vision HEENT: Denies: Head Aches, Sinus Congestion, Sinus Drainage Cardiovascular: Denies: Chest Pain, Palpitations Respiratory: Reports: Shortness of Breath Gastrointestinal: Denies: Abdominal Pain, Nausea, Vomiting Genitourinary: Denies: Dysuria Musculoskeletal: Denies: Joint Pain, Joint Tenderness Skin: Denies: Rash, Wounds Neurological: Denies: Numbness, Tingling, Focal weakness Psychiatric: Denies: Anxiety, Depression, Homicidal Ideations, Suicidal Ideations Hematologic/ Lymphatic: Denies: Easy Bruising, Easy Bleeding Objective: The patient's most recent lab work, culture data and imaging studies have all been personally reviewed. - Physical Exam Vitals/I&O's: Vital Signs Temp Pulse Resp BP Pulse Ox 96.7 F L 84 19 H 105/58 L 99 02/27/19 05:00 02/27/19 06:02 02/27/19 06:02 02/27/19 06:02 02/27/19 06:02 Oxygen Flow Rate (L/min) 3 Oxygen Delivery Method Nasal Cannula Weight: 306 lb 10.608 oz Body Mass Index (BMI) 43.7 Finger Stick Blood Glucose 145 Intake and Output for Last 24 Hours 02/25/19 02/26/19 02/27/19 23:59 23:59 23:59 Intake Total 500 / 500 1187.50 / 1187.50 Balance 500 / 500 1187.50 / 1187.50 General: Alert, Cooperative, No apparent distress HEENT: Atraumatic, PERRLA, Normocephalic Oral: No Gingival or Mucosal Lesions/ Ulcerations Neck: Supple, No Nodes, Trachea Midline Lungs: No rhonchi, No wheeze, No rales, Diminished Cardiovascular: Regular rate, Regular Rhythm, Normal S1, Normal S2, No murmurs Abdomen: Bowel Sounds Present, Soft, Non Tender, Obese Extremities: No clubbing, No cyanosis, No edema Skin: No breakdown Musculoskeletal: No Muscle Wasting Lymphatic: No Cervical, Supraclavicular, or Inguinal Adenopathy Neurological: Neuro grossly intact Psych/Mental Status: Normal Affect, Appropriate Labs (Last 48 Hours) 02/26/19 02/26/19 02/26/19 22:00 22:00 22:00 WBC 6.0 RBC 4.27 L Hgb 12.5 L Hct 42.2 MCV 98.8 H MCH 29.3 MCHC 29.6 L RDW Std Deviation 61.9 H RDW Coeff of [place] 17.2 H Plt Count 167 MPV 11.8 Immature Gran % (Auto) 1.200 H Neut % (Auto) 67.5 Lymph % (Auto) 12.6 L [place] % (Auto) 12.9 H Eos % (Auto) 5.3 H Baso % (Auto) 0.5 Absolute Neuts (auto) 4.1 Absolute Lymphs (auto) 0.76 L Nucleated RBC % 0.8 PT 21.3 H INR 1.9 Sodium Cancelled Potassium Cancelled Chloride Cancelled Carbon Dioxide Cancelled Anion Gap Cancelled BUN Cancelled Creatinine Cancelled Estim Creat Clear Calc Cancelled Est GFR (MDRD) Af Amer Cancelled Est GFR (MDRD) Non-Af Cancelled BUN/Creatinine Ratio Cancelled Glucose Cancelled Calcium Cancelled Troponin I Cancelled POC Glucose 02/26/19 02/27/19 02/27/19 22:55 01:17 04:23 WBC 6.8 RBC 4.37 L Hgb 12.7 L Hct 44.4 MCV 101.6 H MCH 29.1 MCHC 28.6 L RDW Std Deviation 63.9 H RDW Coeff of [place] 17.2 H Plt Count 179 MPV 11.4 Immature Gran % (Auto) 1.300 H Neut % (Auto) 64.3 Lymph % (Auto) 15.9 L [place] % (Auto) 11.9 H Eos % (Auto) 5.9 H Baso % (Auto) 0.7 Absolute Neuts (auto) 4.4 Absolute Lymphs (auto) 1.08 Nucleated RBC % 0.9 PT INR Sodium 141 Potassium 3.9 Chloride 104 Carbon Dioxide 31.0 Anion Gap 6 BUN 29 H Creatinine 4.62 H Estim Creat Clear Calc 13.13 Est GFR (MDRD) Af Amer 16 L Est GFR (MDRD) Non-Af 14 L BUN/Creatinine Ratio 6.3 L Glucose 117 H Calcium 8.5 Troponin I 0.117 H POC Glucose 117 H 02/27/19 02/27/19 02/27/19 04:23 04:23 04:23 WBC RBC Hgb Hct MCV MCH MCHC RDW Std Deviation RDW Coeff of [place] Plt Count MPV Immature Gran % (Auto) Neut % (Auto) Lymph % (Auto) [place] % (Auto) Eos % (Auto) Baso % (Auto) Absolute Neuts (auto) Absolute Lymphs (auto) Nucleated RBC % PT 21.1 H INR 1.8 Sodium 139 Potassium 4.3 Chloride 102 Carbon Dioxide 32.0 Anion Gap 5 BUN 29 H Creatinine 5.10 H Estim Creat Clear Calc 14.11 Est GFR (MDRD) Af Amer 15 L Est GFR (MDRD) Non-Af 12 L BUN/Creatinine Ratio 5.7 L Glucose 134 H Calcium 8.8 Troponin I 0.111 H POC Glucose Clinical Impression(s) from Imaging Studies Chest X-Ray 02/26/19 22:03 IMPRESSION: Interval removal right IJ large bore catheter. Otherwise similar to prior. Electronically Signed: Brodie Mojica, at 22:20 EST Tel , Service support , Current Medications Acetaminophen (Tylenol) 650 mg PO Q6H PRN PRN PRN Reason: Pain Score 1-10/Temp > 100.7 F Albuterol/Ipratropium (Duoneb) 3 ml INHALATION Q6HWA.RT [facility] Ascorbic Acid (Vitamin C) 500 mg PO DAILY [facility] Budesonide (Pulmicort Aerosol) 0.5 mg INHALATION Q12H.RT [facility] Calcium Acetate (Phoslo Gel Cap) 1,334 mg PO BIDCM [facility] Docusate Sodium (Colace) 200 mg PO BID [facility] Escitalopram Oxalate (Lexapro) 10 mg PO DAILY [facility] Ferrous Sulfate (Ferrous Sulfate) 325 mg PO BIDCM [facility] Gabapentin (Neurontin) 300 mg PO BID [facility] Glucagon () 1 mg IM .X1 PRN PRN Reason: Hypoglycemia Norepinephrine Bitartrate 8 mg (/ Sodium Chloride) 250 mls @ 9.375 mls/hr CONT INF .[id number] [facility]; Protocol Last Titration: 02/27/19 06:02 Dose: 10 mcg/min, 18.8 mls/hr Documented by: Dextrose (Dextrose 10%-Water) 250 mls @ 999 mls/hr IV .Q16M PRN; Protocol PRN Reason: HYPOGLYCEMIA Lactated Ringer's () 1,000 mls @ 999 mls/hr IV .Q1H1M [facility] Stop: 02/27/19 08:10 Last Admin: 02/27/19 06:46 Dose: 999 mls/hr Documented by: Midodrine (Proamatine) 10 mg PO BID [facility] Multivitamins (Allbee W/C Caplet, Thera B Comp/C) 1 capsule PO DAILY@1200 [facility] Multivitamins/Minerals (Multivitamin With Minerals) 1 tablet PO DAILY@0800 [facility] Ondansetron HCl (Zofran) 4 mg IV Q8H PRN PRN PRN Reason: NAUSEA/VOMITING Ondansetron HCl (Zofran) 4 mg IV Q8H PRN PRN PRN Reason: NAUSEA/VOMITING Ondansetron HCl (Zofran Odt) 8 mg PO BID PRN PRN PRN Reason: NAUSEA/VOMITING Pantoprazole Sodium (Protonix) 40 mg PO DAILY [facility] Sodium Chloride () 10 - 40 ml IV UD PRN PRN Reason: SALINE FLUSH Last Admin: 02/27/19 06:23 Dose: 10 ml Documented by: Assessment/Plan RECOMMENDATIONS: 1. Change Levophed titration parameters to include the following: Titrate by 1 mcg every 5 to 15 minutes to maintain a systolic blood pressure at or above 90 mmHg. 2. The patient is to receive 1.5 L of lactated ringer fluid bolus. 3. Nephrology consultation is pending. Recommend conservative fluid removal with dialysis in the future. 4. Continue vancomycin per ID recommendations, with plans to complete a total of 6 weeks of treatment. 5. Resume Midodrine. However, increase frequency to 3 times daily. 6. Stop continuous normal saline supplemental IV fluids. IMPRESSIONS: 1. Hypovolemic shock The patient presented to the hospital in a hypotensive state. His blood pressures at baseline are low/normal. I suspect that the patient's hypotension, which occurred following completion of hemodialysis, was likely secondary to volume removal. The patient does not currently have any signs or symptoms of a systemic infectious process. However, his vancomycin will be continued from his previous hospitalization, as the patient needs to complete a 6-week treatment course. The patient will receive additional supplemental IV fluid hydration. His Midodrine dosing frequency has been increased to 3 times daily. The patient will be continued on Levophed with plans to titrate by 1 mcg/min to maintain a systolic blood pressure of 90 mmHg. Recommend conservative fluid removal with future hemodialysis sessions. 2. Recent history of septic shock secondary to MRSA bacteremia Continue vancomycin to complete a 6-week treatment course per infectious diseases recommendations. 3. End-stage renal disease on hemodialysis Nephrology consultation is currently pending to assist with future hemodialysis needs. 4. Morbid obesity/diabetes mellitus/peripheral artery disease/COPD/chronic diastolic heart failure/secondary pulmonary hypertension Complicates care, management, recovery and prognosis. Okay to continue home medications from my perspective. This note was generated with [employer] software. It may contain incorrect words, spelling, and punctuation that were not noted in checking the note before signing. Code Visit Inpatient E&M: 98136 Init Hosp L3
[2019-02-27] MEDS: Budesonide Respules 0.5 MG/2 ML AMPUL.NEB. INHALATION ×2 (06:53→19:14)
[2019-02-27] MEDS: Midodrine HCl 5 MG Tablet 10 MG PO ×3 (07:35→21:47)
[2019-02-27] MEDS: Multivitamins,Ther W-Minerals Tablet 1 TABLET PO (07:36)
[2019-02-27] MEDS: Ferrous Sulfate 325 MG Tablet PO (07:36)
[2019-02-27] MEDS: Calcium Acetate 667 MG Capsule 1334 MG PO (07:37)
--- NOTE | 2019-02-27 08:48 | PCM.PN.HOSP ---
Reason for Visit: Hypotension on Levophed drip Objective: Afebrile. Blood pressure 91/47, map 61 on Levophed drip on titration. Patient is awake and alert and eating breakfast. Heart rate regular sinus rhythm in the 80s Vitals/I&O's: Vital Signs Temp Pulse Resp BP Pulse Ox 97.3 F L 88 23 H 95/42 L 99 02/27/19 07:50 02/27/19 08:30 02/27/19 07:50 02/27/19 08:30 02/27/19 07:50 Oxygen Flow Rate (L/min) 3 Oxygen Delivery Method Nasal Cannula Weight: 306 lb 10.608 oz Body Mass Index (BMI) 43.7 Finger Stick Blood Glucose 145 Intake and Output for Last 24 Hours 02/25/19 02/26/19 02/27/19 23:59 23:59 23:59 Intake Total 500 / 500 2727.11 / 2727.11 Balance 500 / 500 2727.11 / 2727.11 General: Alert, Oriented x3, Cooperative HEENT: Atraumatic, PERRLA, EOMI, Normocephalic Neck: Supple, No JVD, Negative Carotid Bruits, - - Scarring right neck of recent hemodialysis catheter removal. Mild swelling and bluish discoloration over left supraclavicular region Lungs: Normal air movement, No rhonchi, No wheeze, No rales, Diminished Cardiovascular: Regular rate, No murmurs Abdomen: Bowel Sounds Present, Soft, Non Tender, Non-Distended Extremities: No edema, Capillary Refill Less than 3 Seconds Skin: No rashes, No breakdown Musculoskeletal: No Tenderness to Palpation of Joints or Extremities, Arthritic Changes, - - Right 2 toes are missing secondary to lawnmower accident in childhood Neurological: Cranial nerves II-XII grossly intact, Deep Tendon Reflexes 2+/4 and Symmetrical, Neuro grossly intact Psych/Mental Status: Normal Affect, Appropriate Laboratory Results 02/26/19 22:00: WBC 6.0, RBC 4.27 L, Hgb 12.5 L, Hct 42.2, MCV 98.8 H, MCH 29.3, MCHC 29.6 L, RDW Std Deviation 61.9 H, RDW Coeff of [place] 17.2 H, Plt Count 167, MPV 11.8, Immature Gran % (Auto) 1.200 H, Neut % (Auto) 67.5, Lymph % (Auto) 12.6 L, [place] % (Auto) 12.9 H, Eos % (Auto) 5.3 H, Baso % (Auto) 0.5, Absolute Neuts (auto) 4.1, Absolute Lymphs (auto) 0.76 L, Nucleated RBC % 0.8 02/26/19 22:00: PT 21.3 H, INR 1.9 02/26/19 22:00: Sodium Cancelled, Potassium Cancelled, Chloride Cancelled, Carbon Dioxide Cancelled, Anion Gap Cancelled, BUN Cancelled, Creatinine Cancelled, Estim Creat Clear Calc Cancelled, Est GFR (MDRD) Af Amer Cancelled, Est GFR (MDRD) Non-Af Cancelled, BUN/Creatinine Ratio Cancelled, Glucose Cancelled, Calcium Cancelled, Troponin I Cancelled 02/26/19 22:55: Sodium 141, Potassium 3.9, Chloride 104, Carbon Dioxide 31.0, Anion Gap 6, BUN 29 H, Creatinine 4.62 H, Estim Creat Clear Calc 13.13, Est GFR (MDRD) Af Amer 16 L, Est GFR (MDRD) Non-Af 14 L, BUN/Creatinine Ratio 6.3 L, Glucose 117 H, Calcium 8.5, Troponin I 0.117 H 02/27/19 01:17: POC Glucose 117 H 02/27/19 04:23: WBC 6.8, RBC 4.37 L, Hgb 12.7 L, Hct 44.4, MCV 101.6 H, MCH 29.1, MCHC 28.6 L, RDW Std Deviation 63.9 H, RDW Coeff of [place] 17.2 H, Plt Count 179, MPV 11.4, Immature Gran % (Auto) 1.300 H, Neut % (Auto) 64.3, Lymph % (Auto) 15.9 L, [place] % (Auto) 11.9 H, Eos % (Auto) 5.9 H, Baso % (Auto) 0.7, Absolute Neuts (auto) 4.4, Absolute Lymphs (auto) 1.08, Nucleated RBC % 0.9 02/27/19 04:23: PT 21.1 H, INR 1.8 02/27/19 04:23: Sodium 139, Potassium 4.3, Chloride 102, Carbon Dioxide 32.0, Anion Gap 5, BUN 29 H, Creatinine 5.10 H, Estim Creat Clear Calc 14.11, Est GFR (MDRD) Af Amer 15 L, Est GFR (MDRD) Non-Af 12 L, BUN/Creatinine Ratio 5.7 L, Glucose 134 H, Calcium 8.8 02/27/19 04:23: Troponin I 0.111 H 02/27/19 08:05: Troponin I 0.133 H Current Medications Acetaminophen (Tylenol) 650 mg PO Q6H PRN PRN PRN Reason: Pain Score 1-10/Temp > 100.7 F Albuterol/Ipratropium (Duoneb) 3 ml INHALATION Q6HWA.RT [facility] Last Admin: 02/27/19 06:53 Dose: 3 ml Documented by: Ascorbic Acid (Vitamin C) 500 mg PO DAILY [facility] Budesonide (Pulmicort Aerosol) 0.5 mg INHALATION Q12H.RT [facility] Last Admin: 02/27/19 06:53 Dose: 0.5 mg Documented by: [facility] ([facility]) [facility] Last Admin: 02/27/19 07:37 Dose: 1,334 mg Documented by: Docusate Sodium (Colace) 200 mg PO BID [facility] Escitalopram Oxalate (Lexapro) 10 mg PO DAILY [facility] Ferrous Sulfate ([facility]ous Sulfate) [facility] Last Admin: 02/27/19 07:36 Dose: 325 mg Documented by: Gabapentin (Neurontin) 300 mg PO BID [facility] Glucagon () 1 mg IM .X1 PRN PRN Reason: Hypoglycemia Norepinephrine Bitartrate 8 mg (/ Sodium Chloride) 250 mls @ 9.375 mls/hr CONT INF .[id number] [facility]; Protocol Last Titration: 02/27/19 08:30 Dose: 5 mcg/min, 9.4 mls/hr Documented by: Dextrose (Dextrose 10%-Water) 250 mls @ 999 mls/hr IV .Q16M PRN; Protocol PRN Reason: HYPOGLYCEMIA Midodrine (Proamatine) 10 mg PO TID [facility] Last Admin: 02/27/19 07:35 Dose: 10 mg Documented by: Multivitamins (Allbee W/C Caplet, Thera B Comp/C) 1 capsule PO DAILY@1200 [facility] Multivitamins/Minerals (Multivitamin With Minerals) 1 tablet PO DAILY@0800 [facility] Last Admin: 02/27/19 07:36 Dose: 1 tablet Documented by: Ondansetron HCl (Zofran) 4 mg IV Q8H PRN PRN PRN Reason: NAUSEA/VOMITING Ondansetron HCl (Zofran) 4 mg IV Q8H PRN PRN PRN Reason: NAUSEA/VOMITING Ondansetron HCl (Zofran Odt) 8 mg PO BID PRN PRN PRN Reason: NAUSEA/VOMITING Pantoprazole Sodium (Protonix) 40 mg PO DAILY [facility] Sodium Chloride () 10 - 40 ml IV UD PRN PRN Reason: SALINE FLUSH Last Admin: 02/27/19 07:57 Dose: 20 ml Documented by: STROKE Vital Signs/Narrative: Vital Signs Temp Pulse Resp BP Pulse Ox 02/27/19 08:30 88 95/42 L 02/27/19 08:15 91 109/23 L 02/27/19 08:00 88 130/56 H 02/27/19 07:50 97.3 F L 89 23 H 111/64 99 02/27/19 07:40 88 111/54 L 02/27/19 07:25 87 97/54 L 02/27/19 07:10 88 16 101/60 02/27/19 07:04 97.0 F L 84 16 101/60 100 02/27/19 06:53 85 18 02/27/19 06:02 84 19 H 105/58 L 99 02/27/19 05:00 96.7 F L 85 22 H 95/61 94 Medical Necessity - Tobacco Use Smoking Status: Never smoker Assessment/Plan All Active Problems (Last Reviewed 02/27/19 @ 02:45 by Stew Aldrich MD) Hypotension (Acute) The patient is a 69 year old M with a significant history of end-stage renal disease on dialysis; chronic hypotension on midodrine who was recently admitted for septic shock secondary to MRSA infected dialysis catheter which was removed and vancomycin on 02/25 is being admitted because of hypotension after dialysis test as per ER physician blood pressure is systolic 90s. The patient was admitted with blood pressure, 67/46, 59/44 and started on IV Levophed drip. 1. Hypovolemic shock mostly from over removal of fluid during hemodialysis. A liter of normal saline bolus and on started 150 mils per hour. Patient was admitted in ICU on Levophed at 10 mics per minute. Currently patient is on titration of Levophed drip. Patient had no fever, no leukocytosis. 2. Recent history of septic shock with bloodstream infection MRSA bacteremia from infected dialysis catheter: Patient does not appear septic. He is already on IV vancomycin for infected dialysis catheter MRSA, bloodstream infection was removed during previous admission. Per ID, stop date of vancomycin 04/03/2018 3. End-stage renal disease on dialysis Nephrology consult Low potassium and low phosphate diet; 1800 kcal diet 4. Diabetes type II Diet controlled. Blood sugars are controlled. 5. Flat and indeterminate mildly elevated troponin probably from demand ischemia Likely secondary to demand ischemia. Patient does not have chest pain or shortness of breath. Last echocardiogram was 02/19/2019 it showed limited ejection fraction of 65%. Diastolic function was indeterminate. It showed moderate global right ventricular systolic dysfunction. His left atrium was moderately enlarged. Right atrium was mildly enlarged. 6. Atrial Fibrillation On presentation patient was in sinus rhythm with right bundle branch block. INR is subtherapeutic at 1.9. On Coumadin. INR 1.8 7. COPD On home long-acting lAMA; ICS?LABA pulse therapy and a DuoNeb. We will continue patient on DuoNeb. DVT prophylaxis On Coumadin for Afib. De-escalate Coumadin since INR was supra therapeutic. Laboratory Results 02/26/19 22:00: WBC 6.0, RBC 4.27 L, Hgb 12.5 L, Hct 42.2, MCV 98.8 H, MCH 29.3, MCHC 29.6 L, RDW Std Deviation 61.9 H, RDW Coeff of [place] 17.2 H, Plt Count 167, MPV 11.8, Immature Gran % (Auto) 1.200 H, Neut % (Auto) 67.5, Lymph % (Auto) 12.6 L, [place] % (Auto) 12.9 H, Eos % (Auto) 5.3 H, Baso % (Auto) 0.5, Absolute Neuts (auto) 4.1, Absolute Lymphs (auto) 0.76 L, Nucleated RBC % 0.8 02/26/19 22:00: PT 21.3 H, INR 1.9 02/26/19 22:00: Sodium Cancelled, Potassium Cancelled, Chloride Cancelled, Carbon Dioxide Cancelled, Anion Gap Cancelled, BUN Cancelled, Creatinine Cancelled, Estim Creat Clear Calc Cancelled, Est GFR (MDRD) Af Amer Cancelled, Est GFR (MDRD) Non-Af Cancelled, BUN/Creatinine Ratio Cancelled, Glucose Cancelled, Calcium Cancelled, Troponin I Cancelled 02/26/19 22:55: Sodium 141, Potassium 3.9, Chloride 104, Carbon Dioxide 31.0, Anion Gap 6, BUN 29 H, Creatinine 4.62 H, Estim Creat Clear Calc 13.13, Est GFR (MDRD) Af Amer 16 L, Est GFR (MDRD) Non-Af 14 L, BUN/Creatinine Ratio 6.3 L, Glucose 117 H, Calcium 8.5, Troponin I 0.117 H 02/27/19 01:17: POC Glucose 117 H 02/27/19 04:23: WBC 6.8, RBC 4.37 L, Hgb 12.7 L, Hct 44.4, MCV 101.6 H, MCH 29.1, MCHC 28.6 L, RDW Std Deviation 63.9 H, RDW Coeff of [place] 17.2 H, Plt Count 179, MPV 11.4, Immature Gran % (Auto) 1.300 H, Neut % (Auto) 64.3, Lymph % (Auto) 15.9 L, [place] % (Auto) 11.9 H, Eos % (Auto) 5.9 H, Baso % (Auto) 0.7, Absolute Neuts (auto) 4.4, Absolute Lymphs (auto) 1.08, Nucleated RBC % 0.9 02/27/19 04:23: PT 21.1 H, INR 1.8 02/27/19 04:23: Sodium 139, Potassium 4.3, Chloride 102, Carbon Dioxide 32.0, Anion Gap 5, BUN 29 H, Creatinine 5.10 H, Estim Creat Clear Calc 14.11, Est GFR (MDRD) Af Amer 15 L, Est GFR (MDRD) Non-Af 12 L, BUN/Creatinine Ratio 5.7 L, Glucose 134 H, Calcium 8.8 02/27/19 04:23: Troponin I 0.111 H 02/27/19 08:05: Troponin I 0.133 H Clinical Impression(s) from Imaging Studies Chest X-Ray 02/26/19 22:03 IMPRESSION: Interval removal right IJ large bore catheter. Otherwise similar to prior. Code Visit Inpatient E&M: 89490 Subs Hosp L3
[2019-02-27] MEDS: CHLORHEXIDINE GLUC 2% CLOTH 1 EACH TOWELETTE TOPICAL (10:27)
[2019-02-27] MEDS: Nystatin Powder 15gm Bottle 1 APPLIC TOPICAL ×2 (10:28→21:48)
--- NOTE | 2019-02-27 12:19 | PCM.CONS.R ---
Consultation - Renal 02/27/19 PCP/ Referring MD: Requesting physician: [] Primary care physician: Heraclio Whitehead MD Reason for Consultation:: ESRD - History of Present Illness History of Present Illness: The patient is a 69 year old M ESRD TTS admitted sepsis due MRSA CLABSI on levophed..The patient has known end-stage renal disease and is on scheduled hemodialysis. He has low/normal blood pressure readings at his baseline and is on scheduled midodrine as an outpatient. The patient was just discharged from the hospital in February 25 after having spent a week admitted with a septic shock. The patient had MRSA bacteremia from an infected hemodialysis line. - Allergies Allergies: Allergies mirtazapine [From Remeron] Allergy (Verified 02/26/19 21:49) forgetful, doesn't remember anything Sulfa (Sulfonamide Antibiotics) Allergy (Verified 02/26/19 21:49) bleeding from kidneys aspirin Adverse Reaction (Verified 02/26/19 21:49) Nausea oxycodone HCl [From Percodan] Adverse Reaction (Verified 02/26/19 21:49) Nausea oxycodone terephthalate [From Percodan] Adverse Reaction (Verified 02/26/19 21:49) Nausea - Current Medications Current Medications: Current Medications Acetaminophen (Tylenol) 650 mg PO Q6H PRN PRN PRN Reason: Pain Score 1-10/Temp > 100.7 F Albuterol/Ipratropium (Duoneb) 3 ml INHALATION Q6HWA.RT [facility] Last Admin: 02/27/19 06:53 Dose: 3 ml Documented by: Ascorbic Acid (Vitamin C) 500 mg PO DAILY [facility] Last Admin: 02/27/19 10:31 Dose: Not Given Documented by: Budesonide (Pulmicort Aerosol) 0.5 mg INHALATION Q12H.RT [facility] Last Admin: 02/27/19 06:53 Dose: 0.5 mg Documented by: Calcium Acetate (Phoslo Gel Cap) 1,334 mg PO BIDCM [facility] Last Admin: 02/27/19 07:37 Dose: 1,334 mg Documented by: Chlorhexidine Gluconate () 1 each TOPICAL DAILY [facility] Last Admin: 02/27/19 10:27 Dose: 1 each Documented by: Docusate Sodium (Colace) 200 mg PO BID [facility] Last Admin: 02/27/19 10:30 Dose: Not Given Documented by: Escitalopram Oxalate (Lexapro) 10 mg PO DAILY [facility] Last Admin: 02/27/19 10:30 Dose: Not Given Documented by: Ferrous Sulfate (Ferrous Sulfate) 325 mg PO BIDCM [facility] Last Admin: 02/27/19 07:36 Dose: 325 mg Documented by: Gabapentin (Neurontin) 300 mg PO BID [facility] Last Admin: 02/27/19 10:28 Dose: Not Given Documented by: Glucagon () 1 mg IM .X1 PRN PRN Reason: Hypoglycemia Norepinephrine Bitartrate 8 mg (/ Sodium Chloride) 250 mls @ 9.375 mls/hr CONT INF .[id number] [facility]; Protocol Last Titration: 02/27/19 12:00 Dose: 4 mcg/min, 7.5 mls/hr Documented by: Dextrose (Dextrose 10%-Water) 250 mls @ 999 mls/hr IV .Q16M PRN; Protocol PRN Reason: HYPOGLYCEMIA Midodrine (Proamatine) 10 mg PO TID [facility] Last Admin: 02/27/19 07:35 Dose: 10 mg Documented by: Multivitamins (Allbee W/C Caplet, Thera B Comp/C) 1 capsule PO DAILY@1200 [facility] Last Admin: 02/27/19 11:03 Dose: Not Given Documented by: Multivitamins/Minerals (Multivitamin With Minerals) 1 tablet PO DAILY@0800 [facility] Last Admin: 02/27/19 07:36 Dose: 1 tablet Documented by: Nystatin (Mycostatin Powder) 1 applic TOPICAL TID [facility]; Protocol Last Admin: 02/27/19 10:28 Dose: 1 applicatio Documented by: Ondansetron HCl (Zofran) 4 mg IV Q8H PRN PRN PRN Reason: NAUSEA/VOMITING Ondansetron HCl (Zofran) 4 mg IV Q8H PRN PRN PRN Reason: NAUSEA/VOMITING Ondansetron HCl (Zofran Odt) 8 mg PO BID PRN PRN PRN Reason: NAUSEA/VOMITING Pantoprazole Sodium (Protonix) 40 mg PO DAILY [facility] Last Admin: 02/27/19 10:30 Dose: Not Given Documented by: Sodium Chloride () 10 - 40 ml IV UD PRN PRN Reason: SALINE FLUSH Last Admin: 02/27/19 07:57 Dose: 20 ml Documented by: - 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 COPD (chronic obstructive pulmonary disease) (Chronic) With chronic respiratory failure On 3 L nasal cannula Left kidney mass (Chronic) Super obesity (Chronic) bmi 64 Chronic low back pain (Chronic) Pulmonary hypertension (Chronic) Paroxysmal atrial fibrillation (Chronic) Anemia of chronic renal failure (Chronic) Falls frequently (Chronic) - Past Surgical History Surgical History: colectomy, total knee arthroplasty, - - Social History Smoking Status: Never smoker Alcohol: None - Family History Maternal History Items: COPD, Diabetes, Heart Disease, Hypertension - He, Pulmonary Disease, Renal Disease Paternal History Items: No pertinent history Review of Systems Constitutional: Reports: Chills, Fever HEENT: Denies: Head Aches, Sinus Congestion, Sinus Drainage - Physical Exam Vitals/I&O's: Vital Signs Temp Pulse Resp BP Pulse Ox 97.8 F 88 18 106/38 L 93 02/27/19 12:00 02/27/19 12:00 02/27/19 12:00 02/27/19 12:00 02/27/19 12:00 Oxygen Flow Rate (L/min) 3 Oxygen Delivery Method Bi-pap Weight: 139.1 kg Body Mass Index (BMI) 43.7 Finger Stick Blood Glucose 145 Intake and Output for Last 24 Hours 02/25/19 02/26/19 02/27/19 23:59 23:59 23:59 Intake Total 500 / 500 3067.34 / 3067.34 Balance 500 / 500 3067.34 / 3067.34 General: Alert, Oriented x3, Cooperative HEENT: Atraumatic, PERRLA, EOMI, Normocephalic Neck: Supple, No JVD, Negative Carotid Bruits Lungs: Clear to auscultation, Normal air movement Cardiovascular: Regular rate, No murmurs Abdomen: Bowel Sounds Present, Soft, Non Tender Extremities: No edema, Capillary Refill Less than 3 Seconds Skin: No rashes, No breakdown Musculoskeletal: No Tenderness to Palpation of Joints or Extremities Neurological: Cranial nerves II-XII grossly intact Psych/Mental Status: Normal Affect, Appropriate Laboratory Results 02/26/19 22:00: WBC 6.0, RBC 4.27 L, Hgb 12.5 L, Hct 42.2, MCV 98.8 H, MCH 29.3, MCHC 29.6 L, RDW Std Deviation 61.9 H, RDW Coeff of Dixie 17.2 H, Plt Count 167, MPV 11.8, Immature Gran % (Auto) 1.200 H, Neut % (Auto) 67.5, Lymph % (Auto) 12.6 L, Giles % (Auto) 12.9 H, Eos % (Auto) 5.3 H, Baso % (Auto) 0.5, Absolute Neuts (auto) 4.1, Absolute Lymphs (auto) 0.76 L, Nucleated RBC % 0.8 02/26/19 22:00: PT 21.3 H, INR 1.9 02/26/19 22:00: Sodium Cancelled, Potassium Cancelled, Chloride Cancelled, Carbon Dioxide Cancelled, Anion Gap Cancelled, BUN Cancelled, Creatinine Cancelled, Estim Creat Clear Calc Cancelled, Est GFR (MDRD) Af Amer Cancelled, Est GFR (MDRD) Non-Af Cancelled, BUN/Creatinine Ratio Cancelled, Glucose Cancelled, Calcium Cancelled, Troponin I Cancelled 02/26/19 22:55: Sodium 141, Potassium 3.9, Chloride 104, Carbon Dioxide 31.0, Anion Gap 6, BUN 29 H, Creatinine 4.62 H, Estim Creat Clear Calc 13.13, Est GFR (MDRD) Af Amer 16 L, Est GFR (MDRD) Non-Af 14 L, BUN/Creatinine Ratio 6.3 L, Glucose 117 H, Calcium 8.5, Troponin I 0.117 H 02/27/19 01:17: POC Glucose 117 H 02/27/19 04:23: WBC 6.8, RBC 4.37 L, Hgb 12.7 L, Hct 44.4, MCV 101.6 H, MCH 29.1, MCHC 28.6 L, RDW Std Deviation 63.9 H, RDW Coeff of Dixie 17.2 H, Plt Count 179, MPV 11.4, Immature Gran % (Auto) 1.300 H, Neut % (Auto) 64.3, Lymph % (Auto) 15.9 L, Giles % (Auto) 11.9 H, Eos % (Auto) 5.9 H, Baso % (Auto) 0.7, Absolute Neuts (auto) 4.4, Absolute Lymphs (auto) 1.08, Nucleated RBC % 0.9 02/27/19 04:23: PT 21.1 H, INR 1.8 02/27/19 04:23: Sodium 139, Potassium 4.3, Chloride 102, Carbon Dioxide 32.0, Anion Gap 5, BUN 29 H, Creatinine 5.10 H, Estim Creat Clear Calc 14.11, Est GFR (MDRD) Af Amer 15 L, Est GFR (MDRD) Non-Af 12 L, BUN/Creatinine Ratio 5.7 L, Glucose 134 H, Calcium 8.8 02/27/19 04:23: Troponin I 0.111 H 02/27/19 08:05: Troponin I 0.133 H Current Medications Acetaminophen (Tylenol) 650 mg PO Q6H PRN PRN PRN Reason: Pain Score 1-10/Temp > 100.7 F Albuterol/Ipratropium (Duoneb) 3 ml INHALATION Q6HWA.RT [facility] Last Admin: 02/27/19 06:53 Dose: 3 ml Documented by: Ascorbic Acid (Vitamin C) 500 mg PO DAILY [facility] Last Admin: 02/27/19 10:31 Dose: Not Given Documented by: Budesonide (Pulmicort Aerosol) 0.5 mg INHALATION Q12H.RT [facility] Last Admin: 02/27/19 06:53 Dose: 0.5 mg Documented by: Calcium Acetate (Phoslo Gel Cap) 1,334 mg PO BIDCM [facility] Last Admin: 02/27/19 07:37 Dose: 1,334 mg Documented by: Chlorhexidine Gluconate () 1 each TOPICAL DAILY [facility] Last Admin: 02/27/19 10:27 Dose: 1 each Documented by: Docusate Sodium (Colace) 200 mg PO BID [facility] Last Admin: 02/27/19 10:30 Dose: Not Given Documented by: Escitalopram Oxalate (Lexapro) 10 mg PO DAILY [facility] Last Admin: 02/27/19 10:30 Dose: Not Given Documented by: Ferrous Sulfate (Ferrous Sulfate) 325 mg PO BIDCM [facility] Last Admin: 02/27/19 07:36 Dose: 325 mg Documented by: Gabapentin (Neurontin) 300 mg PO BID [facility] Last Admin: 02/27/19 10:28 Dose: Not Given Documented by: Glucagon () 1 mg IM .X1 PRN PRN Reason: Hypoglycemia Norepinephrine Bitartrate 8 mg (/ Sodium Chloride) 250 mls @ 9.375 mls/hr CONT INF .[id number] [facility]; Protocol Last Titration: 02/27/19 12:00 Dose: 4 mcg/min, 7.5 mls/hr Documented by: Dextrose (Dextrose 10%-Water) 250 mls @ 999 mls/hr IV .Q16M PRN; Protocol PRN Reason: HYPOGLYCEMIA Midodrine (Proamatine) 10 mg PO TID [facility] Last Admin: 02/27/19 07:35 Dose: 10 mg Documented by: Multivitamins (Allbee W/C Caplet, Thera B Comp/C) 1 capsule PO DAILY@1200 [facility] Last Admin: 02/27/19 11:03 Dose: Not Given Documented by: Multivitamins/Minerals (Multivitamin With Minerals) 1 tablet PO DAILY@0800 [facility] Last Admin: 02/27/19 07:36 Dose: 1 tablet Documented by: Nystatin (Mycostatin Powder) 1 applic TOPICAL TID [facility]; Protocol Last Admin: 02/27/19 10:28 Dose: 1 applicatio Documented by: Ondansetron HCl (Zofran) 4 mg IV Q8H PRN PRN PRN Reason: NAUSEA/VOMITING Ondansetron HCl (Zofran) 4 mg IV Q8H PRN PRN PRN Reason: NAUSEA/VOMITING Ondansetron HCl (Zofran Odt) 8 mg PO BID PRN PRN PRN Reason: NAUSEA/VOMITING Pantoprazole Sodium (Protonix) 40 mg PO DAILY [facility] Last Admin: 02/27/19 10:30 Dose: Not Given Documented by: Sodium Chloride () 10 - 40 ml IV UD PRN PRN Reason: SALINE FLUSH Last Admin: 02/27/19 07:57 Dose: 20 ml Documented by: Assessment/Plan All Active Problems (Last Reviewed 02/27/19 @ 02:45 by Stew Aldrich MD) Hypotension (Acute) ESRD now with MRSA CLABSI-The patient has known end-stage renal disease and is on scheduled hemodialysis. He has low/normal blood pressure readings at his baseline and is on scheduled midodrine as an outpatient. The patient was just discharged from the hospital in February 25 after having spent a week admitted with a septic shock. The patient had MRSA bacteremia from an infected hemodialysis line. HD today with SCUF and linera sodium modelling BP on levo Hold IV iron DC TDC after HD Line holiday Reinsert on friday Agrre with IV ambx
[2019-02-27 13:35] LABS: Vancomycin, Random Level 22.2 ug/mL (0.0-15.0)
--- NOTE | 2019-02-27 14:18 | PHA.PHARE_ITS ---
Consult Pharmacy has been consulted to manage selected antiobiotic: Vancomycin Type of Consult: New start Suspected Infection: Bacteremia Labs: Sodium 139 mmol/L (136-145) 02/27/19 04:23 Potassium 4.3 mmol/L (3.5-5.1) 02/27/19 04:23 Chloride 102 mmol/L (98-107) 02/27/19 04:23 Carbon Dioxide 32.0 mmol/L (21.0-32.0) 02/27/19 04:23 Anion Gap 5 (5-15) 02/27/19 04:23 BUN 29 mg/dL (7-18) H 02/27/19 04:23 Creatinine 5.10 mg/dL (0.70-1.30) H 02/27/19 04:23 Est GFR (MDRD) Af Amer 15 mL/min (>60) L 02/27/19 04:23 Est GFR (MDRD) Non-Af 12 mL/min (>60) L 02/27/19 04:23 BUN/Creatinine Ratio 5.7 RATIO (10-20) L 02/27/19 04:23 Glucose 134 mg/dL (74-106) H 02/27/19 04:23 Random Vancomycin 22.2 ug/mL (0.0-15.0) H 02/27/19 12:45 Weight used for dosin.1 kg Estimated Creatinine Clearance: 14 ML/MIN Goal Trough: 15-20 mcg/mL Pharmacy Plan for Drug Dosing: The patient was just discharged from the hospital a couple days ago and had been receiving vancomycin here previously. He was also receiving vancomycin around his dialysis sessions as an outpatient since then. Because of that, a random level was ordered to be drawn before dialysis today and before any more doses are given. The vancomycin random level drawn at 12:45 today came back as 22.2 mg/L. Per our [facility] protocol for dosing vancomycin in patients on dialysis, since the level is >20, we will hold further dosing today and repeat the pre- dialysis level with the patient's next HD session and dose based on that level. Pharmacy Service will continue to monitor and adjust dosing as required. Follow-Up Labs: Trough Vancomycin - pre-dialysis Labs to be done on [date and time ordered]: 03/01/19 06:00
[2019-02-27] MEDS: Docusate Sodium 100 MG Capsule 200 MG PO (21:47)
[2019-02-27] MEDS: Gabapentin 300 MG Capsule PO (21:47)
[2019-02-28] VITALS (43 sets, daily range): BP systolic 81–134; BP diastolic 31–72; PULSE 85–99; RESP 14–24; TEMP 36.2–36.8; O2SAT 91–100
[2019-02-28] MEDS: Ipratropium/Albuterol Sulfate 3 ML AMPUL.NEB INHALATION ×4 (01:24→19:28)
[2019-02-28 04:23] LABS: Absolute Lymphocyte Count 1.04 X10^3/uL (0.83-4.51); Absolute Neutrophil Count 3.2 X10^3/uL (2.0-7.7); Basophil# 0.04 X10^3/uL; Basophil% 0.7 % (0-1); Eosinophil# 0.32 X10^3/uL; Eosinophils% 5.8 % (0-5); Hematocrit 38.4 % (40-54); Hemoglobin 11.6 g/dL (13.0-16.5); Lymphocyte # 1.04 X10^3/ul (4.0); Lymphocyte % 18.9 % (19-41); Mean Corp Hgb Conc 30.2 g/dL (32-36); Mean Corpuscular Hgb 29.9 pg (27.0-32.0); Mean Platelet Vol. 11.1 fl (6.2-12.0); Monocyte# 0.84 X10^3/uL; Monocyte% 15.2 % (0-10); NRBC Flagged by Analyzer 0.7 % (0-5); Neutrophil # 3.21 X10^3/uL (2.7-7.7); Neutrophil % 58.3 % (47-70); Platelet Count 152 K/mm3 (150-450); RBC Distribution Width CV 17.5 % (11.6-14.6); RBC Distribution Width SD 62.5 fl (35.1-43.9); Red Blood Count 3.88 M/mm3 (4.6-6.2); White Blood Count 5.5 K/mm3 (4.4-11.0)
[2019-02-28 04:33] LABS: Anion Gap 6 (5-15); BUN 25 mg/dL (7-18); BUN/Creat Ratio 4.9 RATIO (10-20); Calcium,Total 8.3 mg/dL (8.5-10.1); Chloride 103 mmol/L (98-107); EST Glomerular Filtration Rate 12 mL/min (>60); Est Glom Filt Rate - Afr Amer 15 mL/min (>60); Estimated Creatinine Clearance 14.11 ml/min; Glucose 127 mg/dL (74-106); Potassium 4.5 mmol/L (3.5-5.1); Sodium Level 136 mmol/L (136-145)
[2019-02-28] MEDS: Midodrine HCl 5 MG Tablet 10 MG PO ×3 (05:55→21:23)
[2019-02-28] MEDS: Nystatin Powder 15gm Bottle 1 APPLIC TOPICAL ×3 (05:56→21:24)
--- NOTE | 2019-02-28 06:22 | PCM.PN.INT ---
Subjective: The patient was seen and examined at the bedside this morning. Events from the last 24 hours have been reviewed. The patient is currently afebrile, hemodynamically stable and maintaining appropriate oxygen saturations on his baseline requirement of 3 L/min. He is still requiring Levophed at 5 mcg/min. The patient only wore BiPAP overnight for a very short period of time. Nursing staff reported that he was awake during most of the overnight hours. The patient is currently documented to be overall net +4.2 L for the hospital admission. Objective: The patient's most recent lab work, culture data and imaging studies have all been personally reviewed. Repeat blood cultures have been unrevealing to date. General: Alert, Cooperative, No apparent distress HEENT: Atraumatic, Normocephalic Oral: No Gingival or Mucosal Lesions/ Ulcerations Neck: Supple, No Nodes, Trachea Midline Lungs: No rhonchi, No wheeze, No rales, Diminished Cardiovascular: Regular rate, Regular Rhythm, Normal S1, Normal S2, No murmurs, - - Occasioal ectopy on telemetry Abdomen: Bowel Sounds Present, Soft, Non Tender, Obese Extremities: No clubbing, No cyanosis, No edema Skin: - - No significant change from previous. Musculoskeletal: No Tenderness to Palpation of Joints or Extremities Lymphatic: No Cervical, Supraclavicular, or Inguinal Adenopathy Neurological: Neuro grossly intact Psych/Mental Status: Normal Affect, Appropriate Vital Signs Temp Pulse Resp BP Pulse Ox 97.7 F L 87 24 H 102/57 L 97 02/28/19 04:00 02/28/19 06:00 02/28/19 06:00 02/28/19 06:00 02/28/19 06:00 Oxygen Flow Rate (L/min) 3 Oxygen Delivery Method Nasal Cannula Weight: 306 lb 10.608 oz Body Mass Index (BMI) 43.7 Finger Stick Blood Glucose 145 Intake and Output for Last 24 Hours 02/26/19 02/27/19 02/28/19 23:59 23:59 23:59 Intake Total 500 / 500 3655.31 / 3657.35 58.44 / 58.44 Output Total 0 / 0 Balance 500 / 500 3655.31 / 3657.35 58.44 / 58.44 Labs (Last 48 Hours) 02/26/19 02/26/19 02/26/19 22:00 22:00 22:00 WBC 6.0 RBC 4.27 L Hgb 12.5 L Hct 42.2 MCV 98.8 H MCH 29.3 MCHC 29.6 L RDW Std Deviation 61.9 H RDW Coeff of Dixie 17.2 H Plt Count 167 MPV 11.8 Immature Gran % (Auto) 1.200 H Neut % (Auto) 67.5 Lymph % (Auto) 12.6 L [place] % (Auto) 12.9 H Eos % (Auto) 5.3 H Baso % (Auto) 0.5 Absolute Neuts (auto) 4.1 Absolute Lymphs (auto) 0.76 L Nucleated RBC % 0.8 PT 21.3 H INR 1.9 Sodium Cancelled Potassium Cancelled Chloride Cancelled Carbon Dioxide Cancelled Anion Gap Cancelled BUN Cancelled Creatinine Cancelled Estim Creat Clear Calc Cancelled Est GFR (MDRD) Af Amer Cancelled Est GFR (MDRD) Non-Af Cancelled BUN/Creatinine Ratio Cancelled Glucose Cancelled Calcium Cancelled Troponin I Cancelled Random Vancomycin POC Glucose 02/26/19 02/27/19 02/27/19 22:55 01:17 04:23 WBC 6.8 RBC 4.37 L Hgb 12.7 L Hct 44.4 MCV 101.6 H MCH 29.1 MCHC 28.6 L RDW Std Deviation 63.9 H RDW Coeff of Dixie 17.2 H Plt Count 179 MPV 11.4 Immature Gran % (Auto) 1.300 H Neut % (Auto) 64.3 Lymph % (Auto) 15.9 L [place] % (Auto) 11.9 H Eos % (Auto) 5.9 H Baso % (Auto) 0.7 Absolute Neuts (auto) 4.4 Absolute Lymphs (auto) 1.08 Nucleated RBC % 0.9 PT INR Sodium 141 Potassium 3.9 Chloride 104 Carbon Dioxide 31.0 Anion Gap 6 BUN 29 H Creatinine 4.62 H Estim Creat Clear Calc 13.13 Est GFR (MDRD) Af Amer 16 L Est GFR (MDRD) Non-Af 14 L BUN/Creatinine Ratio 6.3 L Glucose 117 H Calcium 8.5 Troponin I 0.117 H Random Vancomycin POC Glucose 117 H 02/27/19 02/27/19 02/27/19 04:23 04:23 04:23 WBC RBC Hgb Hct MCV MCH MCHC RDW Std Deviation RDW Coeff of Dixie Plt Count MPV Immature Gran % (Auto) Neut % (Auto) Lymph % (Auto) [place] % (Auto) Eos % (Auto) Baso % (Auto) Absolute Neuts (auto) Absolute Lymphs (auto) Nucleated RBC % PT 21.1 H INR 1.8 Sodium 139 Potassium 4.3 Chloride 102 Carbon Dioxide 32.0 Anion Gap 5 BUN 29 H Creatinine 5.10 H Estim Creat Clear Calc 14.11 Est GFR (MDRD) Af Amer 15 L Est GFR (MDRD) Non-Af 12 L BUN/Creatinine Ratio 5.7 L Glucose 134 H Calcium 8.8 Troponin I 0.111 H Random Vancomycin POC Glucose 02/27/19 02/27/19 02/28/19 08:05 12:45 04:10 WBC 5.5 RBC 3.88 L Hgb 11.6 L Hct 38.4 L MCV 99.0 H MCH 29.9 MCHC 30.2 L RDW Std Deviation 62.5 H RDW Coeff of Dixie 17.5 H Plt Count 152 MPV 11.1 Immature Gran % (Auto) 1.100 H Neut % (Auto) 58.3 Lymph % (Auto) 18.9 L [place] % (Auto) 15.2 H Eos % (Auto) 5.8 H Baso % (Auto) 0.7 Absolute Neuts (auto) 3.2 Absolute Lymphs (auto) 1.04 Nucleated RBC % 0.7 PT INR Sodium Potassium Chloride Carbon Dioxide Anion Gap BUN Creatinine Estim Creat Clear Calc Est GFR (MDRD) Af Amer Est GFR (MDRD) Non-Af BUN/Creatinine Ratio Glucose Calcium Troponin I 0.133 H Random Vancomycin 22.2 H POC Glucose 02/28/19 04:10 WBC RBC Hgb Hct MCV MCH MCHC RDW Std Deviation RDW Coeff of Dixie Plt Count MPV Immature Gran % (Auto) Neut % (Auto) Lymph % (Auto) [place] % (Auto) Eos % (Auto) Baso % (Auto) Absolute Neuts (auto) Absolute Lymphs (auto) Nucleated RBC % PT INR Sodium 136 Potassium 4.5 Chloride 103 Carbon Dioxide 27.0 Anion Gap 6 BUN 25 H Creatinine 5.10 H Estim Creat Clear Calc 14.11 Est GFR (MDRD) Af Amer 15 L Est GFR (MDRD) Non-Af 12 L BUN/Creatinine Ratio 4.9 L Glucose 127 H Calcium 8.3 L Troponin I Random Vancomycin POC Glucose Clinical Impression(s) from Imaging Studies Chest X-Ray 02/26/19 22:03 IMPRESSION: Interval removal right IJ large bore catheter. Otherwise similar to prior. Electronically Signed: Brodie Mojica, at 22:20 EST Tel , Service support , Medical Necessity - Tobacco Use Smoking Status: Never smoker Assessment/Plan All Active Problems (Last Reviewed 02/27/19 @ 02:45 by Stew Aldrich MD) Hypotension (Acute) RECOMMENDATIONS: 1. Continue Levophed.Titrate by 1 mcg every 5 to 15 minutes to maintain a systolic blood pressure at or above 90 mmHg. 2. Continue hemodialysis support per nephrology recommendations. 3. Continue vancomycin per ID recommendations, with plans to complete a total of 6 weeks of treatment. 4. Continue Midodrine 3 times daily. IMPRESSIONS: 1. Hypovolemic shock The patient presented to the hospital in a hypotensive state. His blood pressures at baseline are low/normal. I suspect that the patient's hypotension, which occurred following completion of hemodialysis, was likely secondary to volume removal. The patient does not currently have any signs or symptoms of a systemic infectious process. However, his vancomycin will be continued from his previous hospitalization, as the patient needs to complete a 6-week treatment course. Continue midodrine 3 times daily. The patient will be continued on Levophed with plans to titrate by 1 mcg/min to maintain a systolic blood pressure of 90 mmHg. Recommend conservative fluid removal with future hemodialysis sessions. 2. Recent history of septic shock secondary to MRSA bacteremia Continue vancomycin to complete a 6-week treatment course per infectious diseases recommendations. 3. End-stage renal disease on hemodialysis Nephrology consultation is currently pending to assist with future hemodialysis needs. 4. Morbid obesity/diabetes mellitus/peripheral artery disease/COPD/chronic diastolic heart failure/secondary pulmonary hypertension Complicates care, management, recovery and prognosis. Okay to continue home medications from my perspective. This note was generated with [employer] software. It may contain incorrect words, spelling, and punctuation that were not noted in checking the note before signing. Code Visit Inpatient E&M: 68254 Subs Hosp L3
[2019-02-28] MEDS: Budesonide Respules 0.5 MG/2 ML AMPUL.NEB. INHALATION ×2 (06:51→19:28)
--- NOTE | 2019-02-28 07:44 | PCM.PN.HOSP ---
Reason for Visit: Hypovolemic shock, hypotension on Levophed drip Objective: Patient is still on Levophed drip at 5 MCG per minute afebrile. On baseline oxygen 3 L/min through nasal cannula. Patient was seen by mechanical handyman. On telemetry normal sinus rhythm with PVCs. Vitals/I&O's: Vital Signs Temp Pulse Resp BP Pulse Ox 97.7 F L 88 19 H 114/46 L 100 02/28/19 04:00 02/28/19 07:00 02/28/19 07:00 02/28/19 07:00 02/28/19 07:00 Oxygen Flow Rate (L/min) 3 Oxygen Delivery Method Nasal Cannula Weight: 311 lb 11.738 oz Body Mass Index (BMI) 43.7 Finger Stick Blood Glucose 145 Intake and Output for Last 24 Hours 02/26/19 02/27/19 02/28/19 23:59 23:59 23:59 Intake Total 500 / 500 3655.31 / 3657.35 67.84 / 67.84 Output Total 0 / 0 Balance 500 / 500 3655.31 / 3657.35 67.84 / 67.84 General: Alert, Oriented x3, Cooperative HEENT: Atraumatic, PERRLA, EOMI, Normocephalic Neck: Supple, No JVD, Negative Carotid Bruits Lungs: Clear to auscultation, No rhonchi, No wheeze, No rales, Diminished Cardiovascular: Regular rate, Regular Rhythm, Normal S1, Normal S2, No murmurs Abdomen: Bowel Sounds Present, Soft, Non Tender, Non-Distended Extremities: Capillary Refill Less than 3 Seconds, Edema Skin: No rashes, No breakdown Musculoskeletal: No Tenderness to Palpation of Joints or Extremities, Arthritic Changes, - - 2 missing toes from right foot Neurological: Cranial nerves II-XII grossly intact, Deep Tendon Reflexes 2+/4 and Symmetrical, Neuro grossly intact Psych/Mental Status: Normal Affect, Appropriate Laboratory Results 02/27/19 08:05: Troponin I 0.133 H 02/27/19 12:45: Random Vancomycin 22.2 H 02/28/19 04:10: WBC 5.5, RBC 3.88 L, Hgb 11.6 L, Hct 38.4 L, MCV 99.0 H, MCH 29.9, MCHC 30.2 L, RDW Std Deviation 62.5 H, RDW Coeff of Dixie 17.5 H, Plt Count 152, MPV 11.1, Immature Gran % (Auto) 1.100 H, Neut % (Auto) 58.3, Lymph % (Auto) 18.9 L, Mccracken % (Auto) 15.2 H, Eos % (Auto) 5.8 H, Baso % (Auto) 0.7, Absolute Neuts (auto) 3.2, Absolute Lymphs (auto) 1.04, Nucleated RBC % 0.7 02/28/19 04:10: Sodium 136, Potassium 4.5, Chloride 103, Carbon Dioxide 27.0, Anion Gap 6, BUN 25 H, Creatinine 5.10 H, Estim Creat Clear Calc 14.11, Est GFR (MDRD) Af Amer 15 L, Est GFR (MDRD) Non-Af 12 L, BUN/Creatinine Ratio 4.9 L, Glucose 127 H, Calcium 8.3 L Current Medications Acetaminophen (Tylenol) 650 mg PO Q6H PRN PRN PRN Reason: Pain Score 1-10/Temp > 100.7 F Albuterol/Ipratropium (Duoneb) 3 ml INHALATION Q6HWA.RT [facility] Last Admin: 02/28/19 06:51 Dose: 3 ml Documented by: Ascorbic Acid (Vitamin C) 500 mg PO DAILY [facility] Last Admin: 02/27/19 10:31 Dose: Not Given Documented by: Budesonide (Pulmicort Aerosol) 0.5 mg INHALATION Q12H.RT [facility] Last Admin: 02/28/19 06:51 Dose: 0.5 mg Documented by: Calcium Acetate (Phoslo Gel Cap) 1,334 mg PO BIDCM [facility] Last Admin: 02/27/19 17:29 Dose: Not Given Documented by: Chlorhexidine Gluconate () 1 each TOPICAL DAILY [facility] Last Admin: 02/27/19 10:27 Dose: 1 each Documented by: Docusate Sodium (Colace) 200 mg PO BID [facility] Last Admin: 02/27/19 21:47 Dose: 200 mg Documented by: Escitalopram Oxalate (Lexapro) 10 mg PO DAILY [facility] Last Admin: 02/27/19 10:30 Dose: Not Given Documented by: Ferrous Sulfate (Ferrous Sulfate) 325 mg PO BIDCM [facility] Last Admin: 02/27/19 17:29 Dose: Not Given Documented by: Gabapentin (Neurontin) 300 mg PO BID [facility] Last Admin: 02/27/19 21:47 Dose: 300 mg Documented by: Glucagon () 1 mg IM .X1 PRN PRN Reason: Hypoglycemia Norepinephrine Bitartrate 8 mg (/ Sodium Chloride) 250 mls @ 9.375 mls/hr CONT INF .[id number] [facility]; Protocol Last Titration: 02/28/19 07:00 Dose: 5 mcg/min, 9.4 mls/hr Documented by: Dextrose (Dextrose 10%-Water) 250 mls @ 999 mls/hr IV .Q16M PRN; Protocol PRN Reason: HYPOGLYCEMIA Midodrine (Proamatine) 10 mg PO TID [facility] Last Admin: 02/28/19 05:55 Dose: 10 mg Documented by: Multivitamins (Allbee W/C Caplet, Thera B Comp/C) 1 capsule PO DAILY@1200 [facility] Last Admin: 02/27/19 11:03 Dose: Not Given Documented by: Multivitamins/Minerals (Multivitamin With Minerals) 1 tablet PO DAILY@0800 [facility] Last Admin: 02/27/19 07:36 Dose: 1 tablet Documented by: Nystatin (Mycostatin Powder) 1 applic TOPICAL TID [facility]; Protocol Last Admin: 02/28/19 05:56 Dose: 1 applicatio Documented by: Ondansetron HCl (Zofran) 4 mg IV Q8H PRN PRN PRN Reason: NAUSEA/VOMITING Ondansetron HCl (Zofran) 4 mg IV Q8H PRN PRN PRN Reason: NAUSEA/VOMITING Ondansetron HCl (Zofran Odt) 8 mg PO BID PRN PRN PRN Reason: NAUSEA/VOMITING Pantoprazole Sodium (Protonix) 40 mg PO DAILY [facility] Last Admin: 02/27/19 10:30 Dose: Not Given Documented by: Sodium Chloride () 10 - 40 ml IV UD PRN PRN Reason: SALINE FLUSH Last Admin: 02/27/19 07:57 Dose: 20 ml Documented by: STROKE Vital Signs/Narrative: Vital Signs Temp Pulse Resp BP Pulse Ox 02/28/19 07:00 88 19 H 114/46 L 100 02/28/19 06:51 98 20 H 97 02/28/19 06:00 87 24 H 102/57 L 97 02/28/19 05:26 93 20 H 93 02/28/19 05:00 89 20 H 93/72 94 02/28/19 04:00 97.7 F L 91 19 H 107/57 L 96 Medical Necessity - Tobacco Use Smoking Status: Never smoker Assessment/Plan All Active Problems (Last Reviewed 02/27/19 @ 02:45 by Stew Aldrich MD) Hypotension (Acute) The patient is a 69 year old M with a significant history of end-stage renal disease on dialysis; chronic hypotension on midodrine who was recently admitted for septic shock secondary to MRSA infected dialysis catheter which was removed and vancomycin on 02/25 is being admitted because of hypotension after dialysis test as per ER physician blood pressure is systolic 90s. The patient was admitted with blood pressure, 67/46, 59/44 and started on IV Levophed drip. 1. Hypovolemic shock mostly from over removal of fluid during hemodialysis. A liter of normal saline bolus and on started 150 mils per hour. Patient was admitted in ICU on Levophed at 10 mics per minute. Currently patient is on titration of Levophed drip. Patient had no fever, no leukocytosis. 02/28: Patient is still on Levophed drip. 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 2. Recent history of septic shock with bloodstream infection MRSA bacteremia from infected dialysis catheter: Patient does not appear septic. He is already on IV vancomycin for infected dialysis catheter MRSA, bloodstream infection was removed during previous admission. Per ID, stop date of vancomycin 04/03/201802/28 discussed with pharmacist yesterday. Vanco trough prior to next vancomycin dosing during dialysis and adjust the dose accordingly. 3. End-stage renal disease on dialysis Nephrology consult Low potassium and low phosphate diet; 1800 kcal diet On midodrine 10 mg 3 times daily. 4. Diabetes type II Diet controlled. Blood sugars are controlled. 5. Flat and indeterminate mildly elevated troponin probably from demand ischemia Likely secondary to demand ischemia. Patient does not have chest pain or shortness of breath. Last echocardiogram was 02/19/2019 it showed limited ejection fraction of 65%. Diastolic function was indeterminate. It showed moderate global right ventricular systolic dysfunction. His left atrium was moderately enlarged. Right atrium was mildly enlarged. 6. Atrial Fibrillation On presentation patient was in sinus rhythm with right bundle branch block. INR is subtherapeutic at 1.9. On Coumadin. INR 1.8 02/28: Repeat PT/INR and start Coumadin 5 mg daily. Titrate the dose of Coumadin as per PT/INR. 7. COPD On home long-acting lAMA; ICS?LABA pulse therapy and a DuoNeb. We will continue patient on DuoNeb. DVT prophylaxis On Coumadin for Afib. De-escalate Coumadin since INR was supra therapeutic. Laboratory Results 02/27/19 08:05: Troponin I 0.133 H 02/27/19 12:45: Random Vancomycin 22.2 H 02/28/19 04:10: WBC 5.5, RBC 3.88 L, Hgb 11.6 L, Hct 38.4 L, MCV 99.0 H, MCH 29.9, MCHC 30.2 L, RDW Std Deviation 62.5 H, RDW Coeff of Dixie 17.5 H, Plt Count 152, MPV 11.1, Immature Gran % (Auto) 1.100 H, Neut % (Auto) 58.3, Lymph % (Auto) 18.9 L, Mccracken % (Auto) 15.2 H, Eos % (Auto) 5.8 H, Baso % (Auto) 0.7, Absolute Neuts (auto) 3.2, Absolute Lymphs (auto) 1.04, Nucleated RBC % 0.7 02/28/19 04:10: Sodium 136, Potassium 4.5, Chloride 103, Carbon Dioxide 27.0, Anion Gap 6, BUN 25 H, Creatinine 5.10 H, Estim Creat Clear Calc 14.11, Est GFR (MDRD) Af Amer 15 L, Est GFR (MDRD) Non-Af 12 L, BUN/Creatinine Ratio 4.9 L, Glucose 127 H, Calcium 8.3 L Clinical Impression(s) from Imaging Studies Chest X-Ray 02/26/19 22:03 IMPRESSION: Interval removal right IJ large bore catheter. Otherwise similar to prior. Code Visit Inpatient E&M: 31286 Subs Hosp L3
[2019-02-28] MEDS: Calcium Acetate 667 MG Capsule 1334 MG PO ×2 (08:42→16:27)
[2019-02-28] MEDS: Escitalopram Oxalate 10 MG Tablet PO (08:43)
[2019-02-28] MEDS: Ferrous Sulfate 325 MG Tablet PO ×2 (08:43→16:28)
[2019-02-28] MEDS: Multivitamins,Ther W-Minerals Tablet 1 TABLET PO (08:43)
[2019-02-28] MEDS: Gabapentin 300 MG Capsule PO ×2 (08:44→21:24)
[2019-02-28] MEDS: Pantoprazole Sodium 40 MG Tablet PO (08:44)
[2019-02-28] MEDS: Docusate Sodium 100 MG Capsule 200 MG PO ×2 (08:45→21:24)
[2019-02-28] MEDS: Ascorbic Acid 500 MG Tablet PO (08:45)
[2019-02-28 10:31] LABS: International Normalized Ratio 1.8; Prothrombin Time (Protime)PT. 20.8 SECONDS (11.7-14.9)
--- NOTE | 2019-02-28 12:25 | PN.RENAL_ITS ---
Subjective: On levo S/P HD yesterday did well - Physical Exam Vitals/I&O's: Vital Signs Temp Pulse Resp BP Pulse Ox 97.7 F L 99 21 H 100/63 92 02/28/19 12:00 02/28/19 12:00 02/28/19 12:00 02/28/19 12:00 02/28/19 12:00 Oxygen Flow Rate (L/min) 3 Oxygen Delivery Method Nasal Cannula Weight: 141.4 kg Body Mass Index (BMI) 43.7 Finger Stick Blood Glucose 145 Intake and Output for Last 24 Hours 02/26/19 02/27/19 02/28/19 23:59 23:59 23:59 Intake Total 500 / 500 3655.31 / 3657.35 436.78 / 436.78 Output Total 0 / 0 Balance 500 / 500 3655.31 / 3657.35 436.78 / 436.78 General: Alert, Oriented x3, Cooperative Laboratory Results 02/27/19 12:45: Random Vancomycin 22.2 H 02/28/19 04:10: WBC 5.5, RBC 3.88 L, Hgb 11.6 L, Hct 38.4 L, MCV 99.0 H, MCH 29.9, MCHC 30.2 L, RDW Std Deviation 62.5 H, RDW Coeff of Dixie 17.5 H, Plt Count 152, MPV 11.1, Immature Gran % (Auto) 1.100 H, Neut % (Auto) 58.3, Lymph % (Auto) 18.9 L, [place] % (Auto) 15.2 H, Eos % (Auto) 5.8 H, Baso % (Auto) 0.7, Absolute Neuts (auto) 3.2, Absolute Lymphs (auto) 1.04, Nucleated RBC % 0.7 02/28/19 04:10: Sodium 136, Potassium 4.5, Chloride 103, Carbon Dioxide 27.0, Anion Gap 6, BUN 25 H, Creatinine 5.10 H, Estim Creat Clear Calc 14.11, Est GFR (MDRD) Af Amer 15 L, Est GFR (MDRD) Non-Af 12 L, BUN/Creatinine Ratio 4.9 L, Glucose 127 H, Calcium 8.3 L 02/28/19 09:40: PT 20.8 H, INR 1.8 Current Medications Acetaminophen (Tylenol) 650 mg PO Q6H PRN PRN PRN Reason: Pain Score 1-10/Temp > 100.7 F Albuterol/Ipratropium (Duoneb) 3 ml INHALATION Q6HWA.RT [facility] Last Admin: 02/28/19 06:51 Dose: 3 ml Documented by: Ascorbic Acid (Vitamin C) 500 mg PO DAILY [facility] Last Admin: 02/28/19 08:45 Dose: 500 mg Documented by: Budesonide (Pulmicort Aerosol) 0.5 mg INHALATION Q12H.RT [facility] Last Admin: 02/28/19 06:51 Dose: 0.5 mg Documented by: Calcium Acetate (Phoslo Gel Cap) 1,334 mg PO BIDCM [facility] Last Admin: 02/28/19 08:42 Dose: 1,334 mg Documented by: Chlorhexidine Gluconate () 1 each TOPICAL DAILY [facility] Last Admin: 02/27/19 10:27 Dose: 1 each Documented by: Docusate Sodium (Colace) 200 mg PO BID [facility] Last Admin: 02/28/19 08:45 Dose: 200 mg Documented by: Escitalopram Oxalate (Lexapro) 10 mg PO DAILY [facility] Last Admin: 02/28/19 08:43 Dose: 10 mg Documented by: Ferrous Sulfate (Ferrous Sulfate) 325 mg PO BIDCM [facility] Last Admin: 02/28/19 08:43 Dose: 325 mg Documented by: Gabapentin (Neurontin) 300 mg PO BID [facility] Last Admin: 02/28/19 08:44 Dose: 300 mg Documented by: Glucagon () 1 mg IM .X1 PRN PRN Reason: Hypoglycemia Norepinephrine Bitartrate 8 mg (/ Sodium Chloride) 250 mls @ 9.375 mls/hr CONT INF .[id number] [facility]; Protocol Last Titration: 02/28/19 12:00 Dose: 0 mcg/min, 0 mls/hr Documented by: Dextrose (Dextrose 10%-Water) 250 mls @ 999 mls/hr IV .Q16M PRN; Protocol PRN Reason: HYPOGLYCEMIA Midodrine (Proamatine) 10 mg PO TID [facility] Last Admin: 02/28/19 05:55 Dose: 10 mg Documented by: Multivitamins (Allbee W/C Caplet, Thera B Comp/C) 1 capsule PO DAILY@1200 [facility] Last Admin: 02/27/19 11:03 Dose: Not Given Documented by: Multivitamins/Minerals (Multivitamin With Minerals) 1 tablet PO DAILY@0800 [facility] Last Admin: 02/28/19 08:43 Dose: 1 tablet Documented by: Nystatin (Mycostatin Powder) 1 applic TOPICAL TID [facility]; Protocol Last Admin: 02/28/19 05:56 Dose: 1 applicatio Documented by: Ondansetron HCl (Zofran) 4 mg IV Q8H PRN PRN PRN Reason: NAUSEA/VOMITING Ondansetron HCl (Zofran) 4 mg IV Q8H PRN PRN PRN Reason: NAUSEA/VOMITING Ondansetron HCl (Zofran Odt) 8 mg PO BID PRN PRN PRN Reason: NAUSEA/VOMITING Pantoprazole Sodium (Protonix) 40 mg PO DAILY [facility] Last Admin: 02/28/19 08:44 Dose: 40 mg Documented by: Sodium Chloride () 10 - 40 ml IV UD PRN PRN Reason: SALINE FLUSH Last Admin: 02/27/19 07:57 Dose: 20 ml Documented by: Warfarin Sodium (Coumadin (Pbkc)) 5 mg PO DAILY@1700 [facility] Medical Necessity - Tobacco Use Smoking Status: Never smoker Assessment/Plan All Active Problems (Last Reviewed 02/27/19 @ 02:45 by Stew Aldrich MD) Hypotension (Acute) ESRD now with MRSA CLABSI-The patient has known end-stage renal disease and is on scheduled hemodialysis. He has low/normal blood pressure readings at his baseline and is on scheduled midodrine as an outpatient. The patient was just discharged from the hospital in February 25 after having spent a week admitted with a septic shock. The patient had MRSA bacteremia from an infected hemodialysis line. HD yesterday next tomorrow with SCUF and linear sodium modelling BP on levo Hold IV iron TDC discontinued due to CLABSI Agrre with IV ambx AVF working ok
[2019-02-28] MEDS: Vitamin B Comp W-C Capsule 1 CAP PO (13:05)
[2019-02-28] MEDS: CHLORHEXIDINE GLUC 2% CLOTH 1 EACH TOWELETTE TOPICAL (13:05)
[2019-02-28] MEDS: 0.9% Saline Lock 10 ML Syringe IV (13:08)
[2019-03-01] VITALS (33 sets, daily range): BP systolic 81–111; BP diastolic 41–66; PULSE 81–92; RESP 12–96; TEMP 36.4–36.7; O2SAT 35–98
[2019-03-01 04:47] LABS: Anion Gap 6 (5-15); BUN 32 mg/dL (7-18); BUN/Creat Ratio 4.7 RATIO (10-20); Calcium,Total 8.8 mg/dL (8.5-10.1); Chloride 102 mmol/L (98-107); EST Glomerular Filtration Rate 9 mL/min (>60); Est Glom Filt Rate - Afr Amer 10 mL/min (>60); Estimated Creatinine Clearance 10.59 ml/min; Glucose 130 mg/dL (74-106); Potassium 4.3 mmol/L (3.5-5.1); Sodium Level 139 mmol/L (136-145)
[2019-03-01 04:50] LABS: Absolute Lymphocyte Count 1.04 X10^3/uL (0.83-4.51); Absolute Neutrophil Count 2.9 X10^3/uL (2.0-7.7); Basophil# 0.03 X10^3/uL; Basophil% 0.6 % (0-1); Eosinophil# 0.24 X10^3/uL; Eosinophils% 4.8 % (0-5); Hemoglobin 11.4 g/dL (13.0-16.5); Lymphocyte # 1.04 X10^3/ul (4.0); Lymphocyte % 20.9 % (19-41); Mean Corp Hgb Conc 29.2 g/dL (32-36); Mean Corpuscular Hgb 29.5 pg (27.0-32.0); Mean Platelet Vol. 11.1 fl (6.2-12.0); Monocyte# 0.73 X10^3/uL; Monocyte% 14.7 % (0-10); Neutrophil # 2.88 X10^3/uL (2.7-7.7); Platelet Count 172 K/mm3 (150-450); RBC Distribution Width SD 60.8 fl (35.1-43.9); Red Blood Count 3.86 M/mm3 (4.6-6.2)
[2019-03-01 04:55] LABS: Prothrombin Time (Protime)PT. 22.7 SECONDS (11.7-14.9)
[2019-03-01 05:06] LABS: Vancomycin, Random Level 20.3 ug/mL (0.0-15.0)
[2019-03-01] MEDS: Midodrine HCl 5 MG Tablet 10 MG PO ×4 (05:38→22:23)
[2019-03-01] MEDS: Nystatin Powder 15gm Bottle 1 APPLIC TOPICAL ×3 (05:38→22:22)
--- NOTE | 2019-03-01 06:20 | PCM.PN.INT ---
Subjective: The patient was seen and examined at the bedside this morning. Events from the last 24 hours have been reviewed. The patient is currently afebrile, hemodynamically stable and maintaining appropriate oxygen saturations on 3 L/min via nasal cannula. The patient's Levophed requirement was able to be discontinued completely yesterday. Blood pressures remain low/normal per baseline. The patient did tolerate BiPAP utilization overnight with improved sleep quality noted by nursing staff. The patient should receive hemodialysis at some point today, per outpatient schedule. Objective: The patient's most recent lab work, culture data and imaging studies have all been personally reviewed. Repeat blood cultures have been unrevealing to date. General: Alert, No apparent distress HEENT: Atraumatic, PERRLA, Normocephalic Oral: No Gingival or Mucosal Lesions/ Ulcerations Neck: Supple, No Nodes, Trachea Midline Lungs: No rhonchi, No wheeze, No rales, Diminished Cardiovascular: Regular rate, Regular Rhythm, Normal S1, Normal S2 Abdomen: Bowel Sounds Present, Soft, Non Tender, Obese Extremities: No clubbing, No cyanosis, No edema Skin: - - No significant change from previous Musculoskeletal: No Tenderness to Palpation of Joints or Extremities Lymphatic: No Cervical, Supraclavicular, or Inguinal Adenopathy Neurological: - - No focal neurological deficits. Psych/Mental Status: Flat Affect Vital Signs Temp Pulse Resp BP Pulse Ox 97.9 F 83 13 106/50 L 98 03/01/19 05:00 03/01/19 06:00 03/01/19 06:00 03/01/19 06:00 03/01/19 06:00 Oxygen Flow Rate (L/min) 4 Oxygen Delivery Method Nasal Cannula Weight: 311 lb 11.738 oz Body Mass Index (BMI) 43.7 Finger Stick Blood Glucose 145 Intake and Output for Last 24 Hours 02/27/19 02/28/19 03/01/19 23:59 23:59 23:59 Intake Total 3655.31 / 3657.35 636.78 / 636.78 75 / 75 Output Total 0 / 0 0 / 0 Balance 3655.31 / 3657.35 636.78 / 636.78 75 / 75 Labs (Last 48 Hours) 02/27/19 02/27/19 02/28/19 08:05 12:45 04:10 WBC 5.5 RBC 3.88 L Hgb 11.6 L Hct 38.4 L MCV 99.0 H MCH 29.9 MCHC 30.2 L RDW Std Deviation 62.5 H RDW Coeff of Dixie 17.5 H Plt Count 152 MPV 11.1 Immature Gran % (Auto) 1.100 H Neut % (Auto) 58.3 Lymph % (Auto) 18.9 L Wilkinson % (Auto) 15.2 H Eos % (Auto) 5.8 H Baso % (Auto) 0.7 Absolute Neuts (auto) 3.2 Absolute Lymphs (auto) 1.04 Nucleated RBC % 0.7 PT INR Sodium Potassium Chloride Carbon Dioxide Anion Gap BUN Creatinine Estim Creat Clear Calc Est GFR (MDRD) Af Amer Est GFR (MDRD) Non-Af BUN/Creatinine Ratio Glucose Calcium Troponin I 0.133 H Random Vancomycin 22.2 H 02/28/19 02/28/19 03/01/19 04:10 09:40 04:03 WBC RBC Hgb Hct MCV MCH MCHC RDW Std Deviation RDW Coeff of Dixie Plt Count MPV Immature Gran % (Auto) Neut % (Auto) Lymph % (Auto) Wilkinson % (Auto) Eos % (Auto) Baso % (Auto) Absolute Neuts (auto) Absolute Lymphs (auto) Nucleated RBC % PT 20.8 H INR 1.8 Sodium 136 Potassium 4.5 Chloride 103 Carbon Dioxide 27.0 Anion Gap 6 BUN 25 H Creatinine 5.10 H Estim Creat Clear Calc 14.11 Est GFR (MDRD) Af Amer 15 L Est GFR (MDRD) Non-Af 12 L BUN/Creatinine Ratio 4.9 L Glucose 127 H Calcium 8.3 L Troponin I Random Vancomycin 20.3 H 03/01/19 03/01/19 03/01/19 04:03 04:03 04:03 WBC 5.0 RBC 3.86 L Hgb 11.4 L Hct 39.0 L MCV 101.0 H MCH 29.5 MCHC 29.2 L RDW Std Deviation 60.8 H RDW Coeff of Dixie 17.0 H Plt Count 172 MPV 11.1 Immature Gran % (Auto) 1.000 H Neut % (Auto) 58.0 Lymph % (Auto) 20.9 Wilkinson % (Auto) 14.7 H Eos % (Auto) 4.8 Baso % (Auto) 0.6 Absolute Neuts (auto) 2.9 Absolute Lymphs (auto) 1.04 Nucleated RBC % 1.0 PT 22.7 H INR 2.0 Sodium 139 Potassium 4.3 Chloride 102 Carbon Dioxide 31.0 Anion Gap 6 BUN 32 H Creatinine 6.80 H Estim Creat Clear Calc 10.59 Est GFR (MDRD) Af Amer 10 L Est GFR (MDRD) Non-Af 9 L BUN/Creatinine Ratio 4.7 L Glucose 130 H Calcium 8.8 Troponin I Random Vancomycin Clinical Impression(s) from Imaging Studies Chest X-Ray 02/26/19 22:03 IMPRESSION: Interval removal right IJ large bore catheter. Otherwise similar to prior. Electronically Signed: Brodie Mojica, at 22:20 EST Tel , Service support , Medical Necessity - Tobacco Use Smoking Status: Never smoker Assessment/Plan All Active Problems (Last Reviewed 02/27/19 @ 02:45 by Stew Aldrich MD) Hypotension (Acute) RECOMMENDATIONS: 1. Continue baseline bronchodilators and inhaled corticosteroid. 2. Continue supplemental oxygen to maintain saturations at or above 90%. 3. Continue Coumadin. 4. Strongly recommend BiPAP utilization with naps and nightly. 5. Monitor patient in ICU setting today with dialysis to ensure hemodynamics remain stable. 6. Recommend outpatient polysomnogram. 7. Continue scheduled Midodrine 3 times daily. 8. Decrease baseline Neurontin dose. IMPRESSIONS: 1. Hypovolemic shock The patient presented to the hospital in a hypotensive state. His blood pressures at baseline are low/normal. I suspect that the patient's hypotension, which occurred following completion of hemodialysis, was likely secondary to volume removal. The patient does not currently have any signs or symptoms of a systemic infectious process. However, his vancomycin will be continued from his previous hospitalization, as the patient needs to complete a 6-week treatment course. Continue midodrine 3 times daily. The patient has been successfully weaned from vasopressor support. Recommend conservative fluid removal with future hemodialysis sessions. 2. Recent history of septic shock secondary to MRSA bacteremia Continue vancomycin to complete a 6-week treatment course per infectious diseases recommendations. 3. End-stage renal disease on hemodialysis Nephrology consultation is currently pending to assist with future hemodialysis needs. 4. Morbid obesity/diabetes mellitus/peripheral artery disease/COPD/chronic diastolic heart failure/secondary pulmonary hypertension Complicates care, management, recovery and prognosis. Okay to continue home medications from my perspective. I do suspect that the patient likely has an underlying component of sleep disordered breathing. I would recommend that he follow-up to have a diagnostic polysomnogram completed. Alternatively, if the patient returns to a alf facility, I would recommend that BiPAP be continued empirically with naps and nightly. This note was generated with [employer] dictation software. It may contain incorrect words, spelling, and punctuation that were not noted in checking the note before signing. Code Visit Inpatient E&M: 05931 Subs Hosp L3
[2019-03-01] MEDS: Budesonide Respules 0.5 MG/2 ML AMPUL.NEB. INHALATION ×2 (06:33→21:11)
[2019-03-01] MEDS: Ipratropium/Albuterol Sulfate 3 ML AMPUL.NEB INHALATION ×3 (06:33→21:11)
--- NOTE | 2019-03-01 09:26 | CASEMGMT ---
SW faxed updates to [facility]. SW to follow for d/c back to [facility] when medically ready. 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
--- NOTE | 2019-03-01 11:03 | PCM.PN.REN ---
Subjective: No new complaints today - Physical Exam Vitals/I&O's: Vital Signs Temp Pulse Resp BP Pulse Ox 97.8 F 83 18 100/45 L 93 03/01/19 07:45 03/01/19 07:45 03/01/19 07:45 03/01/19 07:45 03/01/19 07:31 Oxygen Flow Rate (L/min) 4 Oxygen Delivery Method Bi-pap Weight: 141.4 kg Body Mass Index (BMI) 43.7 Finger Stick Blood Glucose 145 Intake and Output for Last 24 Hours 02/27/19 02/28/19 03/01/19 23:59 23:59 23:59 Intake Total 3655.31 / 3657.35 636.78 / 636.78 75 / 75 Output Total 0 / 0 0 / 0 Balance 3655.31 / 3657.35 636.78 / 636.78 75 / 75 General: Alert, Oriented x3, Cooperative HEENT: Atraumatic, PERRLA, EOMI, Normocephalic Neck: Supple, No JVD, Negative Carotid Bruits Lungs: Clear to auscultation, Normal air movement Cardiovascular: Regular rate, No murmurs Abdomen: Bowel Sounds Present, Soft, Non Tender Extremities: No edema, Capillary Refill Less than 3 Seconds Skin: No rashes, No breakdown Musculoskeletal: No Tenderness to Palpation of Joints or Extremities Neurological: Cranial nerves II-XII grossly intact Psych/Mental Status: Normal Affect, Appropriate Microbiology Past 72 Hours 02/26/19 22:15 Blood Culture (Wb) - Right Hand Blood Culture - Preliminary No growth in 48 hours. 02/26/19 22:00 Blood Culture (Wb) - Venous Blood Culture - Preliminary No growth in 48 hours. Laboratory Results 03/01/19 04:03: Random Vancomycin 20.3 H 03/01/19 04:03: PT 22.7 H, INR 2.0 03/01/19 04:03: WBC 5.0, RBC 3.86 L, Hgb 11.4 L, Hct 39.0 L, MCV 101.0 H, MCH 29.5, MCHC 29.2 L, RDW Std Deviation 60.8 H, RDW Coeff of Dixie 17.0 H, Plt Count 172, MPV 11.1, Immature Gran % (Auto) 1.000 H, Neut % (Auto) 58.0, Lymph % (Auto) 20.9, [place] % (Auto) 14.7 H, Eos % (Auto) 4.8, Baso % (Auto) 0.6, Absolute Neuts (auto) 2.9, Absolute Lymphs (auto) 1.04, Nucleated RBC % 1.0 03/01/19 04:03: Sodium 139, Potassium 4.3, Chloride 102, Carbon Dioxide 31.0, Anion Gap 6, BUN 32 H, Creatinine 6.80 H, Estim Creat Clear Calc 10.59, Est GFR (MDRD) Af Amer 10 L, Est GFR (MDRD) Non-Af 9 L, BUN/Creatinine Ratio 4.7 L, Glucose 130 H, Calcium 8.8 Current Medications Acetaminophen (Tylenol) 650 mg PO Q6H PRN PRN PRN Reason: Pain Score 1-10/Temp > 100.7 F Albuterol/Ipratropium (Duoneb) 3 ml INHALATION Q6HWA.RT [facility] Last Admin: 03/01/19 06:33 Dose: 3 ml Documented by: Ascorbic Acid (Vitamin C) 500 mg PO DAILY [facility] Last Admin: 02/28/19 08:45 Dose: 500 mg Documented by: Budesonide (Pulmicort Aerosol) 0.5 mg INHALATION Q12H.RT [facility] Last Admin: 03/01/19 06:33 Dose: 0.5 mg Documented by: Calcium Acetate (Phoslo Gel Cap) [facility] [facility] Last Admin: 02/28/19 16:27 Dose: 1,334 mg Documented by: Chlorhexidine Gluconate () 1 each TOPICAL DAILY [facility] Last Admin: 02/28/19 13:05 Dose: 1 each Documented by: Docusate Sodium (Colace) 200 mg PO BID [facility] Last Admin: 02/28/19 21:24 Dose: 200 mg Documented by: Escitalopram Oxalate (Lexapro) 10 mg PO DAILY [facility] Last Admin: 02/28/19 08:43 Dose: 10 mg Documented by: Ferrous Sulfate (Ferrous Sulfate) 325 mg PO BIDCM [facility] Last Admin: 02/28/19 16:28 Dose: 325 mg Documented by: Gabapentin (Neurontin) [address] [facility] Glucagon () 1 mg IM .X1 PRN PRN Reason: Hypoglycemia Dextrose (Dextrose 10%-Water) 250 mls @ 999 mls/hr IV .Q16M PRN; Protocol PRN Reason: HYPOGLYCEMIA Vancomycin HCl () 500 mg in 100 mls @ 100 mls/hr IV X1 ONE Stop: 03/01/19 13:59 Midodrine (Proamatine) 10 mg PO TID [facility] Last Admin: 03/01/19 10:33 Dose: 10 mg Documented by: Multivitamins (Allbee W/C Caplet, Thera B Comp/C) 1 capsule PO DAILY@1200 [facility] Last Admin: 02/28/19 13:05 Dose: 1 capsule Documented by: Multivitamins/Minerals (Multivitamin With Minerals) 1 tablet PO DAILY@0800 [facility] Last Admin: 02/28/19 08:43 Dose: 1 tablet Documented by: Nystatin (Mycostatin Powder) 1 applic TOPICAL TID [facility]; Protocol Last Admin: 03/01/19 05:38 Dose: 1 applicatio Documented by: Ondansetron HCl (Zofran) 4 mg IV Q8H PRN PRN PRN Reason: NAUSEA/VOMITING Ondansetron HCl (Zofran) 4 mg IV Q8H PRN PRN PRN Reason: NAUSEA/VOMITING Ondansetron HCl (Zofran Odt) 8 mg PO BID PRN PRN PRN Reason: NAUSEA/VOMITING Pantoprazole Sodium (Protonix) 40 mg PO DAILY [facility] Last Admin: 02/28/19 08:44 Dose: 40 mg Documented by: Sodium Chloride () 10 - 40 ml IV UD PRN PRN Reason: SALINE FLUSH Last Admin: 02/28/19 13:08 Dose: 20 ml Documented by: Warfarin Sodium (Coumadin (Pbkc)) 5 mg PO DAILY@1700 [facility] Medical Necessity - Tobacco Use Smoking Status: Never smoker Assessment/Plan All Active Problems (Last Reviewed 02/27/19 @ 02:45 by Stew Aldrich MD) Hypotension (Acute) End-stage renal disease. On hemodialysis. Dialysis today as per schedule. Seen on dialysis. See orders/flow sheets. Blood pressure remains low. Will give extra dose of midodrine to help with blood pressure. Recent MRSA bacteremia. On antibiotics. Catheter has been removed. Able to use fistula with blood flows of around 250. Fluid removal has been limited with hypotension Anemia. Usually gets long-acting erythropoietin
--- NOTE | 2019-03-01 12:04 | DIALYSIS ---
Hemodialysis x 4 hours with 3K bath; Removed = -1000; extra Midodrine 10mg given mid treatment for BP support. LUAVF needles pulled; stasis complete; DSD applied +bruti +thrill. Tolerated well. Report given to IMAN Russo.
[2019-03-01] MEDS: Calcium Acetate 667 MG Capsule 1334 MG PO ×2 (12:48→17:26)
[2019-03-01] MEDS: Ferrous Sulfate 325 MG Tablet PO ×2 (12:49→17:26)
[2019-03-01] MEDS: Multivitamins,Ther W-Minerals Tablet 1 TABLET PO (12:50)
[2019-03-01] MEDS: CHLORHEXIDINE GLUC 2% CLOTH 1 EACH TOWELETTE TOPICAL (12:50)
[2019-03-01] MEDS: Escitalopram Oxalate 10 MG Tablet PO (12:51)
[2019-03-01] MEDS: Docusate Sodium 100 MG Capsule 200 MG PO ×2 (12:51→22:22)
[2019-03-01] MEDS: Vitamin B Comp W-C Capsule 1 CAP PO (12:51)
[2019-03-01] MEDS: Pantoprazole Sodium 40 MG Tablet PO (12:51)
[2019-03-01] MEDS: Ascorbic Acid 500 MG Tablet PO (12:52)
[2019-03-01] MEDS: Vancomycin IV 500 MG/100 ML BAG 100 MG IV (12:59)
--- NOTE | 2019-03-01 16:21 | NURSING ---
report called to CLIMATOLOGY TEACHER
--- NOTE | 2019-03-01 18:25 | PCM.PROGNOTE ---
Subjective: Patient was seen and examined today, his blood pressure at times today is been in the 80s to 90 systolic, patient was moved to PCU today for further care. Patient is currently stable on 5 L nasal cannula with a 93% pulse ox. - Physical Exam Vitals/I&O's: Vital Signs Temp Pulse Resp BP Pulse Ox 97.5 F L 88 96 H 87/43 L 93 03/01/19 12:02 03/01/19 18:22 03/01/19 17:00 03/01/19 18:00 03/01/19 18:00 Oxygen Flow Rate (L/min) 5 Oxygen Delivery Method Nasal Cannula Weight: 141.4 kg Body Mass Index (BMI) 43.7 Finger Stick Blood Glucose 145 Intake and Output for Last 24 Hours 02/27/19 02/28/19 03/01/19 23:59 23:59 23:59 Intake Total 3655.31 / 3657.35 636.78 / 636.78 125 / 125 Output Total 0 / 0 1999 / 1999 Balance 3655.31 / 3657.35 636.78 / 636.78 -1875 / -1875 General: Alert, Oriented x3, Cooperative, No apparent distress, Well developed HEENT: Atraumatic, PERRLA, EOMI, Normocephalic Oral: Moist Mucosa Neck: Supple, Trachea Midline, Thyroid Normal Size and Texture Lungs: Clear to auscultation, Normal air movement, No rhonchi, No wheeze, No rales Cardiovascular: Regular rate, Regular Rhythm, Normal S1, Normal S2, No murmurs Abdomen: Bowel Sounds Present, Soft, Non Tender, Non-Distended Extremities: No clubbing, No cyanosis, No edema, Capillary Refill Less than 3 Seconds Skin: No rashes, No breakdown Musculoskeletal: No Tenderness to Palpation of Joints or Extremities Neurological: Cranial nerves II-XII grossly intact, Neuro grossly intact, Sensory exam intact to light touch and pain Psych/Mental Status: Appropriate, Flat Affect Microbiology Past 72 Hours 02/26/19 22:15 Blood Culture (Wb) - Right Hand Blood Culture - Preliminary No growth in 48 hours. 02/26/19 22:00 Blood Culture (Wb) - Venous Blood Culture - Preliminary No growth in 48 hours. Laboratory Results 03/01/19 04:03: Random Vancomycin 20.3 H 03/01/19 04:03: PT 22.7 H, INR 2.0 03/01/19 04:03: WBC 5.0, RBC 3.86 L, Hgb 11.4 L, Hct 39.0 L, MCV 101.0 H, MCH 29.5, MCHC 29.2 L, RDW Std Deviation 60.8 H, RDW Coeff of [place] 17.0 H, Plt Count 172, MPV 11.1, Immature Gran % (Auto) 1.000 H, Neut % (Auto) 58.0, Lymph % (Auto) 20.9, [place] % (Auto) 14.7 H, Eos % (Auto) 4.8, Baso % (Auto) 0.6, Absolute Neuts (auto) 2.9, Absolute Lymphs (auto) 1.04, Nucleated RBC % 1.0 03/01/19 04:03: Sodium 139, Potassium 4.3, Chloride 102, Carbon Dioxide 31.0, Anion Gap 6, BUN 32 H, Creatinine 6.80 H, Estim Creat Clear Calc 10.59, Est GFR (MDRD) Af Amer 10 L, Est GFR (MDRD) Non-Af 9 L, BUN/Creatinine Ratio 4.7 L, Glucose 130 H, Calcium 8.8 Current Medications Acetaminophen (Tylenol) 650 mg PO Q6H PRN PRN PRN Reason: Pain Score 1-10/Temp > 100.7 F Albuterol/Ipratropium (Duoneb) 3 ml INHALATION Q6HWA.RT [facility] Last Admin: 03/01/19 13:22 Dose: 3 ml Documented by: Ascorbic Acid (Vitamin C) 500 mg PO DAILY [facility] Last Admin: 03/01/19 12:52 Dose: 500 mg Documented by: Budesonide (Pulmicort Aerosol) 0.5 mg INHALATION Q12H.RT [facility] Last Admin: 03/01/19 06:33 Dose: 0.5 mg Documented by: Calcium Acetate (Phoslo Gel Cap) 1,334 mg PO BIDCM [facility] Last Admin: 03/01/19 17:26 Dose: 1,334 mg Documented by: Chlorhexidine Gluconate () 1 each TOPICAL DAILY [facility] Last Admin: 03/01/19 12:50 Dose: 1 each Documented by: Docusate Sodium (Colace) 200 mg PO BID [facility] Last Admin: 03/01/19 12:51 Dose: 200 mg Documented by: Escitalopram Oxalate (Lexapro) 10 mg PO DAILY [facility] Last Admin: 03/01/19 12:51 Dose: 10 mg Documented by: [facility]ous S[facility]) [facility] Admin: 03/01/19 17:26 Dose: 325 mg Documented by: Gabap[facility] ([facility]urontin) [facility] Glucagon () 1 mg IM .X1 PRN PRN Reason: Hypoglycemia Dextrose (Dextrose 10%-Water) 250 mls @ 999 mls/hr IV .Q16M PRN; Protocol PRN Reason: HYPOGLYCEMIA Midodrine (Proamatine) 10 mg PO TID [facility] Last Admin: 03/01/19 10:33 Dose: 10 mg Documented by: Midodrine (Proamatine) 10 mg PO DAILY PRN PRN PRN Reason: PRIOR TO DIALYSIS Last Admin: 03/01/19 14:32 Dose: 10 mg Documented by: Multivitamins (Allbee W/C Caplet, Thera B Comp/C) 1 capsule PO DAILY@1200 [facility] Last Admin: 03/01/19 12:51 Dose: 1 capsule Documented by: Multivitamins/Minerals (Multivitamin With Minerals) 1 tablet PO DAILY@0800 [facility] Last Admin: 03/01/19 12:50 Dose: 1 tablet Documented by: Nystatin (Mycostatin Powder) 1 applic TOPICAL TID [facility]; Protocol Last Admin: 03/01/19 14:33 Dose: 1 applicatio Documented by: Ondansetron HCl (Zofran) 4 mg IV Q8H PRN PRN PRN Reason: NAUSEA/VOMITING Ondansetron HCl (Zofran) 4 mg IV Q8H PRN PRN PRN Reason: NAUSEA/VOMITING Ondansetron HCl (Zofran Odt) 8 mg PO BID PRN PRN PRN Reason: NAUSEA/VOMITING Pantoprazole Sodium (Protonix) 40 mg PO DAILY [facility] Last Admin: 03/01/19 12:51 Dose: 40 mg Documented by: Sodium Chloride () 10 - 40 ml IV UD PRN PRN Reason: SALINE FLUSH Last Admin: 02/28/19 13:08 Dose: 20 ml Documented by: Warfarin Sodium (Coumadin (Pbkc)) 5 mg PO DAILY@1700 [facility] Last Admin: 03/01/19 17:27 Dose: 5 mg Documented by: Medical Necessity - Tobacco Use Smoking Status: Never smoker Assessment/Plan All Active Problems (Last Reviewed 02/27/19 @ 02:45 by Stew Aldrich MD) Hypotension (Acute) #1 hypovolemic shock-probably secondary to fluid removal at dialysis, continue to provide supportive care, patient is on Midodrine #2 end-stage renal disease-continue dialysis #3 recent MRSA bacteremia with septic shock-patient is to finish a 6-week course of vancomycin #4 type 2 diabetes #5 pulmonary hypertension #6 paroxysmal atrial fibrillation-patient on Coumadin #7 anemia of chronic renal disease #8 morbid obesity Code Visit Inpatient E&M: 66151 Subs Hosp L2
[2019-03-02] VITALS (17 sets, daily range): BP systolic 92–111; BP diastolic 34–71; PULSE 61–89; RESP 12–20; TEMP 36.5–37.1; O2SAT 65–98
[2019-03-02] MEDS: Midodrine HCl 5 MG Tablet 10 MG PO ×3 (04:50→20:53)
[2019-03-02] MEDS: Nystatin Powder 15gm Bottle 1 APPLIC TOPICAL ×3 (04:50→20:54)
[2019-03-02 05:19] LABS: International Normalized Ratio 2.2; Prothrombin Time (Protime)PT. 24.4 SECONDS (11.7-14.9)
[2019-03-02 05:23] LABS: Vancomycin, Random Level 22.3 ug/mL (0.0-15.0)
[2019-03-02] MEDS: Ipratropium/Albuterol Sulfate 3 ML AMPUL.NEB INHALATION ×3 (07:01→19:49)
[2019-03-02] MEDS: Budesonide Respules 0.5 MG/2 ML AMPUL.NEB. INHALATION ×2 (07:01→19:49)
--- NOTE | 2019-03-02 08:01 | PCM.PN.PUL ---
Subjective: The patient was seen and examined at the bedside this morning. Events from the last 24 hours have been reviewed. The patient is currently afebrile, hemodynamically stable and maintaining appropriate oxygen saturations on his baseline supplemental oxygen requirement. The patient tolerated dialysis yesterday with 1 L of fluid removed. He remains hemodynamically stable at his baseline. The patient tolerated BiPAP overnight. Objective: The patient's most recent lab work, culture data and imaging studies have all been personally reviewed. Repeat blood cultures have been unrevealing to date. - Physical Exam Vitals/I&O's: Vital Signs Temp Pulse Resp BP Pulse Ox 98.1 F 80 18 106/45 L 94 03/02/19 04:00 03/02/19 06:48 03/02/19 04:15 03/02/19 04:00 03/02/19 04:15 Oxygen Flow Rate (L/min) 4 Oxygen Delivery Method Bi-pap Weight: 314 lb 2.539 oz Body Mass Index (BMI) 43.7 Finger Stick Blood Glucose 145 Intake and Output for Last 24 Hours 02/28/19 03/01/19 03/02/19 23:59 23:59 23:59 Intake Total 636.78 / 636.78 325 / 325 50 / 50 Output Total 0 / 0 1999 / 1999 0 / 0 Balance 636.78 / 636.78 -1675 / -1675 50 / 50 General: Alert, No apparent distress HEENT: Atraumatic, PERRLA, Normocephalic Oral: No Gingival or Mucosal Lesions/ Ulcerations Neck: Supple, No Nodes, Trachea Midline Lungs: No rhonchi, No wheeze, No rales, Diminished Cardiovascular: Regular rate, Regular Rhythm, Normal S1, Normal S2 Abdomen: Bowel Sounds Present, Soft, Non Tender, Obese Extremities: No clubbing, No cyanosis Skin: - - No significant change from previous Musculoskeletal: No Muscle Wasting Lymphatic: No Cervical, Supraclavicular, or Inguinal Adenopathy Neurological: Neuro grossly intact Psych/Mental Status: Flat Affect Labs (Last 48 Hours) 02/28/19 03/01/19 03/01/19 09:40 04:03 04:03 WBC RBC Hgb Hct MCV MCH MCHC RDW Std Deviation RDW Coeff of Dixie Plt Count MPV Immature Gran % (Auto) Neut % (Auto) Lymph % (Auto) [place] % (Auto) Eos % (Auto) Baso % (Auto) Absolute Neuts (auto) Absolute Lymphs (auto) Nucleated RBC % PT 20.8 H 22.7 H INR 1.8 2.0 Sodium Potassium Chloride Carbon Dioxide Anion Gap BUN Creatinine Estim Creat Clear Calc Est GFR (MDRD) Af Amer Est GFR (MDRD) Non-Af BUN/Creatinine Ratio Glucose Calcium Random Vancomycin 20.3 H 03/01/19 03/01/19 03/02/19 04:03 04:03 04:42 WBC 5.0 RBC 3.86 L Hgb 11.4 L Hct 39.0 L MCV 101.0 H MCH 29.5 MCHC 29.2 L RDW Std Deviation 60.8 H RDW Coeff of Dixie 17.0 H Plt Count 172 MPV 11.1 Immature Gran % (Auto) 1.000 H Neut % (Auto) 58.0 Lymph % (Auto) 20.9 [place] % (Auto) 14.7 H Eos % (Auto) 4.8 Baso % (Auto) 0.6 Absolute Neuts (auto) 2.9 Absolute Lymphs (auto) 1.04 Nucleated RBC % 1.0 PT 24.4 H INR 2.2 Sodium 139 Potassium 4.3 Chloride 102 Carbon Dioxide 31.0 Anion Gap 6 BUN 32 H Creatinine 6.80 H Estim Creat Clear Calc 10.59 Est GFR (MDRD) Af Amer 10 L Est GFR (MDRD) Non-Af 9 L BUN/Creatinine Ratio 4.7 L Glucose 130 H Calcium 8.8 Random Vancomycin 03/02/19 04:42 WBC RBC Hgb Hct MCV MCH MCHC RDW Std Deviation RDW Coeff of [place]ie Plt Count MPV Immature Gran % (Auto) Neut % (Auto) Lymph % (Auto) [place] % (Auto) Eos % (Auto) Baso % (Auto) Absolute Neuts (auto) Absolute Lymphs (auto) Nucleated RBC % PT INR Sodium Potassium Chloride Carbon Dioxide Anion Gap BUN Creatinine Estim Creat Clear Calc Est GFR (MDRD) Af Amer Est GFR (MDRD) Non-Af BUN/Creatinine Ratio Glucose Calcium Random Vancomycin 22.3 H Microbiology 02/26/19 22:15 Blood Culture (Wb) - Right Hand Blood Culture - Preliminary No growth in 48 hours. 02/26/19 22:00 Blood Culture (Wb) - Venous Blood Culture - Preliminary No growth in 48 hours. Clinical Impression(s) from Imaging Studies Chest X-Ray 02/26/19 22:03 IMPRESSION: Interval removal right IJ large bore catheter. Otherwise similar to prior. Electronically Signed: Brodie Mojica, at 22:20 EST Tel , Service support , Current Medications Acetaminophen (Tylenol) 650 mg PO Q6H PRN PRN PRN Reason: Pain Score 1-10/Temp > 100.7 F Albuterol/Ipratropium (Duoneb) 3 ml INHALATION Q6HWA.RT [facility] Last Admin: 03/02/19 07:01 Dose: 3 ml Documented by: Ascorbic Acid (Vitamin C) 500 mg PO DAILY [facility] Last Admin: 03/01/19 12:52 Dose: 500 mg Documented by: Budesonide (Pulmicort Aerosol) 0.5 mg INHALATION Q12H.RT [facility] Last Admin: 03/02/19 07:01 Dose: 0.5 mg Documented by: Calcium Acetate (Phoslo [facility]) [facility] Last Admin: 03/01/19 17:26 Dose: 1,334 mg Documented by: Chlorhexidine Gluconate () 1 each TOPICAL DAILY [facility] Last Admin: 03/01/19 12:50 Dose: 1 each Documented by: Docusate Sodium (Colace) 200 mg PO BID [facility] Last Admin: 03/01/19 22:22 Dose: 200 mg Documented by: Escitalopram Oxalate (Lexapro) 10 mg PO DAILY [facility] Last Admin: 03/01/19 12:51 Dose: 10 mg Documented by: Ferrous Sulfate (Ferrous Sulfate) [facility] Last Admin: 03/01/19 17:26 Dose: 325 mg Documented by: Gabapentin (Neurontin) [facility] Glucagon () 1 mg IM .X1 PRN PRN Reason: Hypoglycemia Dextrose (Dextrose 10%-Water) 250 mls @ 999 mls/hr IV .Q16M PRN; Protocol PRN Reason: HYPOGLYCEMIA Midodrine (Proamatine) 10 mg PO TID [facility] Last Admin: 03/02/19 04:50 Dose: 10 mg Documented by: Midodrine (Proamatine) 10 mg PO DAILY PRN PRN PRN Reason: PRIOR TO DIALYSIS Last Admin: 03/01/19 14:32 Dose: 10 mg Documented by: Multivitamins (Allbee W/C Caplet, Thera B Comp/C) 1 capsule PO DAILY@1200 [facility] Last Admin: 03/01/19 12:51 Dose: 1 capsule Documented by: Multivitamins/Minerals (Multivitamin With Minerals) 1 tablet PO DAILY@0800 [facility] Last Admin: 03/01/19 12:50 Dose: 1 tablet Documented by: Nystatin (Mycostatin Powder) 1 applic TOPICAL TID [facility]; Protocol Last Admin: 03/02/19 04:50 Dose: 1 applicatio Documented by: Ondansetron HCl (Zofran) 4 mg IV Q8H PRN PRN PRN Reason: NAUSEA/VOMITING Ondansetron HCl (Zofran) 4 mg IV Q8H PRN PRN PRN Reason: NAUSEA/VOMITING Ondansetron HCl (Zofran Odt) 8 mg PO BID PRN PRN PRN Reason: NAUSEA/VOMITING Pantoprazole Sodium (Protonix) 40 mg PO DAILY [facility] Last Admin: 03/01/19 12:51 Dose: 40 mg Documented by: Sodium Chloride () 10 - 40 ml IV UD PRN PRN Reason: SALINE FLUSH Last Admin: 02/28/19 13:08 Dose: 20 ml Documented by: Warfarin Sodium (Coumadin (Pbkc)) 5 mg PO DAILY@1700 [facility] Last Admin: 03/01/19 17:27 Dose: 5 mg Documented by: Medical Necessity - Tobacco Use Smoking Status: Never smoker Assessment/Plan All Active Problems (Last Reviewed 02/27/19 @ 02:45 by Stew Aldrich MD) Hypotension (Acute) RECOMMENDATIONS: 1. Continue baseline bronchodilators and inhaled corticosteroid. 2. Continue supplemental oxygen to maintain saturations at or above 90%. 3. Continue Coumadin. 4. Strongly recommend BiPAP utilization with naps and nightly. 5. Recommend outpatient polysomnogram. 6. Continue scheduled Midodrine 3 times daily. 7. Will sign off from a critical care perspective. Please call with any additional questions. IMPRESSIONS: 1. Hypovolemic shock The patient presented to the hospital in a hypotensive state. His blood pressures at baseline are low/normal. I suspect that the patient's hypotension, which occurred following completion of hemodialysis, was likely secondary to volume removal. The patient does not currently have any signs or symptoms of a systemic infectious process. However, his vancomycin will be continued from his previous hospitalization, as the patient needs to complete a 6-week treatment course. Continue midodrine 3 times daily. The patient has been successfully weaned from vasopressor support. Recommend conservative fluid removal with future hemodialysis sessions. 2. Recent history of septic shock secondary to MRSA bacteremia Continue vancomycin to complete a 6-week treatment course per infectious diseases recommendations. 3. End-stage renal disease on hemodialysis Nephrology is following to assist with future hemodialysis needs. 4. Morbid obesity/diabetes mellitus/peripheral artery disease/COPD/chronic diastolic heart failure/secondary pulmonary hypertension Complicates care, management, recovery and prognosis. Okay to continue home medications from my perspective. I do suspect that the patient likely has an underlying component of sleep disordered breathing. I would recommend that he follow-up to have a diagnostic polysomnogram completed. Alternatively, if the patient returns to a detention facility, I would recommend that BiPAP be continued empirically with naps and nightly. This note was generated with [employer] dictation software. It may contain incorrect words, spelling, and punctuation that were not noted in checking the note before signing. Code Visit Inpatient E&M: 36449 Subs Hosp L2
[2019-03-02] MEDS: Multivitamins,Ther W-Minerals Tablet 1 TABLET PO (09:58)
[2019-03-02] MEDS: Gabapentin 300 MG Capsule PO (09:59)
[2019-03-02] MEDS: Ferrous Sulfate 325 MG Tablet PO ×2 (09:59→16:14)
[2019-03-02] MEDS: Vitamin B Comp W-C Capsule 1 CAP PO (09:59)
[2019-03-02] MEDS: Ascorbic Acid 500 MG Tablet PO (09:59)
[2019-03-02] MEDS: Escitalopram Oxalate 10 MG Tablet PO (09:59)
[2019-03-02] MEDS: Docusate Sodium 100 MG Capsule 200 MG PO ×2 (09:59→20:54)
[2019-03-02] MEDS: Calcium Acetate 667 MG Capsule 1334 MG PO ×2 (09:59→16:14)
[2019-03-02] MEDS: Pantoprazole Sodium 40 MG Tablet PO (09:59)
--- NOTE | 2019-03-02 10:37 | PN.RENAL_ITS ---
Subjective: no new events - Physical Exam Vitals/I&O's: Vital Signs Temp Pulse Resp BP Pulse Ox 98.3 F 83 16 105/71 96 03/02/19 09:29 03/02/19 09:29 03/02/19 09:29 03/02/19 09:29 03/02/19 09:29 Oxygen Flow Rate (L/min) 3 Oxygen Delivery Method Nasal Cannula Weight: 142.5 kg Body Mass Index (BMI) 43.7 Finger Stick Blood Glucose 145 Intake and Output for Last 24 Hours 02/28/19 03/01/19 03/02/19 23:59 23:59 23:59 Intake Total 636.78 / 636.78 325 / 325 50 / 50 Output Total 0 / 0 1999 0 / 0 Balance 636.78 / 636.78 -1675 / -1675 50 / 50 General: Alert, Oriented x3, Cooperative Microbiology Past 72 Hours 02/26/19 22:15 Blood Culture (Wb) - Right Hand Blood Culture - Preliminary No growth in 48 hours. 02/26/19 22:00 Blood Culture (Wb) - Venous Blood Culture - Preliminary No growth in 48 hours. Laboratory Results 03/02/19 04:42: PT 24.4 H, INR 2.2 03/02/19 04:42: Random Vancomycin 22.3 H Current Medications Acetaminophen (Tylenol) 650 mg PO Q6H PRN PRN PRN Reason: Pain Score 1-10/Temp > 100.7 F Albuterol/Ipratropium (Duoneb) 3 ml INHALATION Q6HWA.RT [facility] Last Admin: 03/02/19 07:01 Dose: 3 ml Documented by: Ascorbic Acid (Vitamin C) 500 mg PO DAILY [facility] Last Admin: 03/02/19 09:59 Dose: 500 mg Documented by: Budesonide (Pulmicort Aerosol) 0.5 mg INHALATION Q12H.RT [facility] Last Admin: 03/02/19 07:01 Dose: 0.5 mg Documented by: Calcium Acetate (Phoslo Gel Cap) 1,334 mg PO BIDCM [facility] Last Admin: 03/02/19 09:59 Dose: 1,334 mg Documented by: Chlorhexidine Gluconate () 1 each TOPICAL DAILY [facility] Last Admin: 03/02/19 10:00 Dose: Not Given Documented by: Docusate Sodium (Colace) 200 mg PO BID [facility] Last Admin: 03/02/19 09:59 Dose: 200 mg Documented by: Escitalopram Oxalate (Lexapro) 10 mg PO DAILY [facility] Last Admin: 03/02/19 09:59 Dose: 10 mg Documented by: Ferrous Sulfate (Ferrous Sulfate) [facility] Last Admin: 03/02/19 09:59 Dose: 325 mg Documented by: Gabapentin (Neurontin) 300 mg [facility] Last Admin: 03/02/19 09:59 Dose: 300 mg Documented by: Glucagon () 1 mg IM .X1 PRN PRN Reason: Hypoglycemia Dextrose (Dextrose 10%-Water) 250 mls @ 999 mls/hr IV .Q16M PRN; Protocol PRN Reason: HYPOGLYCEMIA Midodrine (Proamatine) 10 mg PO TID [facility] Last Admin: 03/02/19 04:50 Dose: 10 mg Documented by: Midodrine (Proamatine) 10 mg PO DAILY PRN PRN PRN Reason: PRIOR TO DIALYSIS Last Admin: 03/01/19 14:32 Dose: 10 mg Documented by: Multivitamins (Allbee W/C Caplet, Thera B Comp/C) 1 capsule PO DAILY@1200 [facility] Last Admin: 03/02/19 09:59 Dose: 1 capsule Documented by: Multivitamins/Minerals (Multivitamin With Minerals) 1 tablet PO DAILY@0800 [facility] Last Admin: 03/02/19 09:58 Dose: 1 tablet Documented by: Nystatin (Mycostatin Powder) 1 applic TOPICAL TID [facility]; Protocol Last Admin: 03/02/19 04:50 Dose: 1 applicatio Documented by: Ondansetron HCl (Zofran) 4 mg IV Q8H PRN PRN PRN Reason: NAUSEA/VOMITING Ondansetron HCl (Zofran) 4 mg IV Q8H PRN PRN PRN Reason: NAUSEA/VOMITING Ondansetron HCl (Zofran Odt) 8 mg PO BID PRN PRN PRN Reason: NAUSEA/VOMITING Pantoprazole Sodium (Protonix) 40 mg PO DAILY [facility] Last Admin: 03/02/19 09:59 Dose: 40 mg Documented by: Sodium Chloride () 10 - 40 ml IV UD PRN PRN Reason: SALINE FLUSH Last Admin: 02/28/19 13:08 Dose: 20 ml Documented by: Warfarin Sodium (Coumadin (Pbkc)) 5 mg PO DAILY@1700 [facility] Last Admin: 03/01/19 17:27 Dose: 5 mg Documented by: Medical Necessity - Tobacco Use Smoking Status: Never smoker Assessment/Plan All Active Problems (Last Reviewed 02/27/19 @ 02:45 by Stew Aldrich MD) Hypotension (Acute) End-stage renal disease. On hemodialysis. Blood pressure remains low. Recent MRSA bacteremia. On antibiotics. Catheter has been removed. Able to use fistula with blood flows of around 250. Fluid removal has been limited with hypotension Anemia. Usually gets long-acting erythropoietin
--- NOTE | 2019-03-02 13:15 | CASEMGMT ---
Addendum entered by Yandy Mike 03/02/19 14:23: CLARA received a return call from Kirstie at [facility] and she said that is fine for patient to return today. She said he already has a bipap in his room. Yandy CHARLES Original Note: CLARA called and left a voice mail letting Kirstie know that patient should be returning today and they physician would like him to wear a bipap with naps and at night. CLARA faxed settings to [facility]. CLARA will leave a green sheet on chart if d/c is not done before CLARA leaves. Plan: d/c back to [facility]. Yandy CHARLES
--- NOTE | 2019-03-02 14:42 | PCM.TXEXTCAR ---
- Diet 02/28/19 12:53 Diet: Calorie Controlled Food consistency:: Mechanical Soft/Ground Liquid Consistency:: [place] Thick Dietary Modifications:: Low Phosphorous Diet Low Potassium Restriction Is pt able to select menu?: No How many daily calories?: 1800 calorie - Routine Orders/Code Status O2 Liters per Minute: 3 O2 Frequency: Continuous Routine Lab Work: - - INR daily times 5 days, then every 4 weeks Code Status: DNRCC-A - Wound(s) rt chest Wound Type: Puncture [place]he[place] Cleft Wound Type: Skin Tear LT Buttock Wound Type: Pressure Injury RT Abdominal Fold Wound Type: Excoriation RT Breast Fold Wound Type: Excoriation - Therapies Physical Therapy: Eval and Treat Occupational Therapy: Eval and Treat - Problem/Diagnosis (1) Hypotension Status: Acute Current Visit: Yes (2) Hypotension Status: Acute Comment: secondary to volume depletion Current Visit: No (3) ESRD (end stage renal disease) on dialysis Status: Chronic Current Visit: No (4) Benign hypertension Status: Inactive Current Visit: No (5) Diabetes mellitus, type 2 Status: Chronic Comment: DIET CONTROLLED Current Visit: No (6) KATHY on CPAP Status: Chronic 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 Current Visit: No (7) COPD (chronic obstructive pulmonary disease) Status: Chronic Comment: With chronic respiratory failure On 3 L nasal cannula Current Visit: No (8) Paroxysmal atrial fibrillation Status: Chronic Current Visit: No - Allergies/Procedures Done in Hospital Allergies/Adverse Reactions: Allergies mirtazapine [From Remeron] Allergy (Verified 02/26/19 21:49) forgetful, doesn't remember anything Sulfa (Sulfonamide Antibiotics) Allergy (Verified 02/26/19 21:49) bleeding from kidneys aspirin Adverse Reaction (Verified 02/26/19 21:49) Nausea oxycodone HCl [From Percodan] Adverse Reaction (Verified 02/26/19 21:49) Nausea oxycodone terephthalate [From Percodan] Adverse Reaction (Verified 02/26/19 21:49) Nausea - Type of Care/Length of Stay Estimated LOS: Convalescent Care Less Than 30 days Type of Care Needed: Skilled Rehab Potential: Good Prognosis: Good - Additional Orders/Day of Discharge H&P will serve as current which was dated: 02/26/19 Day of Discharge: 03/02/19 - Dietary and Speech Recommendations Dietitian Recommendations/Changes: Rec 1 packet Vimal BID for wound healing. Will continue Nepro CarbSteady 120mL and ONS w/ meals for additional calories/protein if consumed. [ End ] - Follow Up Care Primary Care Physician: Heraclio Whitehead MD [Primary Care Provider] -
--- NOTE | 2019-03-02 15:31 | CASEMGMT ---
Patient is ready for discharge, but unfortunately SW could not get bariatric transport arranged for today. CLARA arranged transport for 03-03 at 9am. SW notified Kirstie at [facility], special agent in charge, and will notify patient. Plan: d/c back to [facility] under skilled level of care. Yandy JASSO LINE ERECTOR
--- NOTE | 2019-03-02 19:27 | PCM.PROGNOTE ---
Patient Problems: Active and Suspected Problems (Last Reviewed 02/27/19 @ 02:45 by Stew Aldrich MD) Hypotension (Acute) Subjective: Atul today, he appears stable for transfer to his extended care facility today, however, we were not able to get transportation for the patient and his return to his [facility] facility will be delayed until tomorrow. Patient appears stable at this time, blood pressure appears to be staying above 100 systolic today. - Physical Exam Vitals/I&O's: Vital Signs Temp Pulse Resp BP Pulse Ox 98.3 F 79 14 111/66 98 03/02/19 14:38 03/02/19 15:06 03/02/19 14:38 03/02/19 14:38 03/02/19 14:38 Oxygen Flow Rate (L/min) 3 Oxygen Delivery Method Nasal Cannula Weight: 142.5 kg Body Mass Index (BMI) 43.7 Finger Stick Blood Glucose 145 Intake and Output for Last 24 Hours 02/28/19 03/01/19 03/02/19 23:59 23:59 23:59 Intake Total 636.78 / 636.78 325 / 325 290 / 290 Output Total 0 / 0 1999 / 1999 0 / 0 Balance 636.78 / 636.78 -1675 / -1675 290 / 290 General: Alert, Cooperative, No apparent distress, Well developed HEENT: Atraumatic, PERRLA, EOMI, Normocephalic Oral: Moist Mucosa Neck: Supple, Trachea Midline, Thyroid Normal Size and Texture Lungs: Clear to auscultation, Normal air movement, No rhonchi, No wheeze, No rales Cardiovascular: Regular rate, Regular Rhythm, Normal S1, Normal S2, No murmurs, PMI Normal, No rub noted Abdomen: Bowel Sounds Present, Soft, Non Tender, Non-Distended Extremities: No clubbing, No cyanosis, Capillary Refill Less than 3 Seconds Skin: No rashes, No breakdown Musculoskeletal: No Tenderness to Palpation of Joints or Extremities Neurological: Cranial nerves II-XII grossly intact, Neuro grossly intact, Sensory exam intact to light touch and pain Psych/Mental Status: Normal Affect, Appropriate Microbiology Past 72 Hours 02/26/19 22:15 Blood Culture (Wb) - Right Hand Blood Culture - Preliminary No growth in 48 hours. 02/26/19 22:00 Blood Culture (Wb) - Venous Blood Culture - Preliminary No growth in 48 hours. Laboratory Results 03/02/19 04:42: PT 24.4 H, INR 2.2 03/02/19 04:42: Random Vancomycin 22.3 H Current Medications Acetaminophen (Tylenol) 650 mg PO Q6H PRN PRN PRN Reason: Pain Score 1-10/Temp > 100.7 F Albuterol/Ipratropium (Duoneb) 3 ml INHALATION Q6HWA.RT [facility] Last Admin: 03/02/19 13:09 Dose: 3 ml Documented by: Ascorbic Acid (Vitamin C) 500 mg PO DAILY [facility] Last Admin: 03/02/19 09:59 Dose: 500 mg Documented by: Budesonide (Pulmicort Aerosol) 0.5 mg INHALATION Q12H.RT [facility] Last Admin: 03/02/19 07:01 Dose: 0.5 mg Documented by: Calcium Acetate ([facility]) [facility] Last Admin: 03/02/19 16:14 Dose: 1,334 mg Documented by: Chlorhexidine Gluconate () 1 each TOPICAL DAILY [facility] Last Admin: 03/02/19 10:00 Dose: Not Given Documented by: Docusate Sodium (Colace) 200 mg PO BID [facility] Last Admin: 03/02/19 09:59 Dose: 200 mg Documented by: Escitalopram Oxalate (Lexapro) 10 mg PO DAILY [facility] Last Admin: 03/02/19 09:59 Dose: 10 mg Documented by: Ferrous Sulfate ([facility]ous Sulfate) [facility] Last Admin: 03/02/19 16:14 Dose: 325 mg Documented by: Gab[facility]entin ([facility]urontin) [facility] Last Admin: 03/02/19 09:59 Dose: 300 mg Documented by: Glucagon () 1 mg IM .X1 PRN PRN Reason: Hypoglycemia Dextrose (Dextrose 10%-Water) 250 mls @ 999 mls/hr IV .Q16M PRN; Protocol PRN Reason: HYPOGLYCEMIA Midodrine (Proamatine) 10 mg PO TID [facility] Last Admin: 03/02/19 14:46 Dose: 10 mg Documented by: Midodrine (Proamatine) 10 mg PO DAILY PRN PRN PRN Reason: PRIOR TO DIALYSIS Last Admin: 03/01/19 14:32 Dose: 10 mg Documented by: Multivitamins (Allbee W/C Caplet, Thera B Comp/C) 1 capsule PO DAILY@1200 [facility] Last Admin: 03/02/19 09:59 Dose: 1 capsule Documented by: Multivitamins/Minerals (Multivitamin With Minerals) 1 tablet PO DAILY@0800 [facility] Last Admin: 03/02/19 09:58 Dose: 1 tablet Documented by: Nystatin (Mycostatin Powder) 1 applic TOPICAL TID [facility]; Protocol Last Admin: 03/02/19 14:46 Dose: 1 applicatio Documented by: Ondansetron HCl (Zofran) 4 mg IV Q8H PRN PRN PRN Reason: NAUSEA/VOMITING Ondansetron HCl (Zofran) 4 mg IV Q8H PRN PRN PRN Reason: NAUSEA/VOMITING Ondansetron HCl (Zofran Odt) 8 mg PO BID PRN PRN PRN Reason: NAUSEA/VOMITING Pantoprazole Sodium (Protonix) 40 mg PO DAILY [facility] Last Admin: 03/02/19 09:59 Dose: 40 mg Documented by: Sodium Chloride () 10 - 40 ml IV UD PRN PRN Reason: SALINE FLUSH Last Admin: 02/28/19 13:08 Dose: 20 ml Documented by: Warfarin Sodium (Coumadin (Pbkc)) 5 mg PO DAILY@1700 [facility] Last Admin: 03/02/19 16:14 Dose: 5 mg Documented by: Medical Necessity - Tobacco Use Smoking Status: Never smoker Assessment/Plan All Active Problems (Last Reviewed 02/27/19 @ 02:45 by Stew Aldrich MD) Hypotension (Acute) Hypotension (Acute) #1 hypovolemic shock-probably secondary to fluid removal at dialysis, continue to provide supportive care, patient is on Midodrine, it appears that the patient's blood pressure is stabilized at this time and remains consistently above 100 systolic. Plan is to transfer the patient back to a skilled care facility tomorrow #2 end-stage renal disease-continue dialysis #3 recent MRSA bacteremia with septic shock-patient is to finish a 6-week course of vancomycin #4 type 2 diabetes #5 pulmonary hypertension #6 paroxysmal atrial fibrillation-patient on Coumadin #7 anemia of chronic renal disease #8 morbid obesity Code Visit Inpatient E&M: 63229 Subs Hosp L2
[2019-03-03] VITALS (7 sets, daily range): BP systolic 93–108; BP diastolic 37–39; PULSE 78–81; RESP 14–18; TEMP 36.5–36.7; O2SAT 14–98
[2019-03-03 05:38] LABS: International Normalized Ratio 3.4; Prothrombin Time (Protime)PT. 34.2 SECONDS (11.7-14.9)
[2019-03-03] MEDS: 0.9% Saline Lock 10 ML Syringe IV (06:25)
[2019-03-03] MEDS: Midodrine HCl 5 MG Tablet 10 MG PO (06:26)
[2019-03-03] MEDS: Nystatin Powder 15gm Bottle 1 APPLIC TOPICAL (06:26)
[2019-03-03] MEDS: Budesonide Respules 0.5 MG/2 ML AMPUL.NEB. INHALATION (07:22)
[2019-03-03] MEDS: Ipratropium/Albuterol Sulfate 3 ML AMPUL.NEB INHALATION (07:22)
--- NOTE | 2019-03-04 18:09 | PCM.DC.SUM ---
Discharge Date and Diagnosis Date of Admission: 02/27/19 Date of Discharge: 03/03/19 - Primary Discharge Diagnosis #1 hypovolemic shock-probably secondary to fluid removal at dialysis #2 end-stage renal disease #3 recent MRSA bacteremia with septic shock #4 type 2 diabetes #5 pulmonary hypertension #6 paroxysmal atrial fibrillation #7 anemia of chronic renal disease #8 morbid obesity - Secondary Discharge Diagnosis Chronic Problems (Last Reviewed 02/27/19 @ 02:45 by Stew Aldrich MD) ESRD (end stage renal disease) on dialysis (Chronic) BPH (benign prostatic hyperplasia) (Chronic) Depression (Chronic) Hyperlipidemia (Chronic) IgA nephropathy (Chronic) Chronic gout (Chronic) Diabetes mellitus, type 2 (Chronic) DIET CONTROLLED Diastolic Dysfunction EF 60% (Chronic) KATHY on CPAP (Chronic) 16 CM WATER COPD (chronic obstructive pulmonary disease) (Chronic) With chronic respiratory failure On 3 L nasal cannula Left kidney mass (Chronic) Super obesity (Chronic) bmi 64 Chronic low back pain (Chronic) Pulmonary hypertension (Chronic) Paroxysmal atrial fibrillation (Chronic) Anemia of chronic renal failure (Chronic) Falls frequently (Chronic) Hospital Course and Treatment Operations: None Procedures: Dialysis Summary of Care Provided: The patient is a 69 year old M was seen in the emergency room at [facility] after being sent in by an extended care facility where the patient resides due to hypotension and mental status change after returning from dialysis. Work-up in the emergency room included an EKG which showed normal sinus rhythm at [address] changes, CBC was unremarkable, chemistries showed a BUN of 29 a creatinine of 4.62. Chest x-ray showed nothing acute. Patient's blood pressure at triage was 61/41, patient was given IV fluids and admitted to the ICU. He was placed on IV pressor agents and underwent dialysis in the ICU. Patient's blood pressure slowly returned toward normal, he was given Midodrine. Patient was eventually transferred to PCU where he remained stable. It was felt that the patient's hypotension was probably secondary to fluid depletion from dialysis. On 03/03/2019, patient was seen and examined and felt to be in stable condition for discharge back to his extended care facility: On examination he appeared in good health and spirits. Vital signs as documented. Skin warm and dry and without overt rashes. Neck without JVD. Lungs clear. Heart exam notable for regular rhythm, normal sounds and absence of murmurs, rubs or gallops. Abdomen unremarkable and without evidence of organomegaly, masses, or abdominal aortic enlargement. Extremities nonedematous. Neuro: Cranial nerves II through XII are grossly intact, no focal motor deficits were noted, sensation to light touch and pinprick intact. Psych: Patient is alert and oriented x3, he does not appear anxious or depressed Discharge had to be rescheduled until 03/03/2019 due to lack of ambulance transportation. - Physical Exam Vitals/I&O's: Vital Signs Temp Pulse Resp BP Pulse Ox 98.0 F 81 16 93/39 L 91 03/03/19 04:38 03/03/19 07:22 03/03/19 07:22 03/03/19 04:38 03/03/19 07:22 Oxygen Flow Rate (L/min) 2 Oxygen Delivery Method Nasal Cannula Weight: 140.3 kg Body Mass Index (BMI) 43.7 Finger Stick Blood Glucose 145 Intake and Output for Last 24 Hours 03/02/19 03/03/19 03/04/19 23:59 23:59 23:59 Intake Total 365 / 365 50 / 50 Output Total 0 / 0 0 / 0 Balance 365 / 365 50 / 50 Microbiology Past 72 Hours 02/26/19 22:00 Blood Culture (Wb) - Venous Blood Culture - Final No growth in 5 days. 02/26/19 22:15 Blood Culture (Wb) - Right Hand Blood Culture - Final No growth in 5 days. Home Medications: Medications to take at Discharge Calcium Acetate [Phoslo Gel Cap] 1,334 mg PO BID 11/08/16 ferrous sulfate 325 mg (65 mg iron) tablet,delayed release 325 mg PO BID tab 05/12/18 umeclidinium 62.5 mcg/actuation blister powder for inhalation 1 inh INHALATION LUNCH 05/12/18 B Complex W-C No.20/Folic Acid [Virt-Caps Softgel] 1 mg PO DAILY@1200 08/18/18 Docusate Sodium [Colace] 200 mg PO BID 08/18/18 Escitalopram Oxalate [Lexapro] 10 mg PO DAILY 08/18/18 Fluticasone/Vilanterol [Breo Ellipta 100-25 Mcg INH] 1 ea IH DAILY 08/18/18 Pantoprazole Sodium [Protonix] 40 mg PO DAILY 08/18/18 Midodrine HCl 10 mg PO BID #60 tab 01/08/19 Acetaminophen [Tylenol] 650 mg PO Q4H PRN PRN 02/18/19 Ascorbic Acid 500 mg PO DAILY 02/18/19 Ipratropium/Albuterol Sulfate [Duoneb] 3 ml INHALATION Q6H.RT 02/18/19 Multivit,Tx with Iron,Minerals [Thera-M] 1 tab PO DAILY 02/18/19 Ondansetron HCl 8 mg PO BID PRN PRN 02/18/19 Vancomycin IV Pharmacy to Dose 1,500 ea IV UD 38 Days #15 ea 02/25/19 Gabapentin [Neurontin] 300 mg PO BID 5 Days #10 cap 03/02/19 Nystatin Powder [Mycostatin Powder] 1 applic TOPICAL TID bottle 03/02/19 Warfarin [Coumadin] 4 mg PO DAILY #1 tab 03/02/19 Following Prescrptions Were Given to Patient: Warfarin [Coumadin] 4 mg PO DAILY #1 tab Gabapentin [Neurontin] 300 mg PO BID 5 Days #10 cap Prescription Printed Primary Care Physician: Heraclio Whitehead MD [Primary Care Provider] - Disposition: Snf facility Minutes spent on discharge:: 35 Patient Condition:: Stable Medical Necessity - Tobacco Use Smoking Status: Never smoker Meaningful Use Info Meaningful Use Diagnoses (Choose all that apply): None applicable Code Visit Inpatient E&M: 72681 Disch Hosp
== END 2019-03-03 09:12 | disposition skilled nursing facility (03) | DRG 919 ==
LOC: ED 23:57 → ICU 02-27 01:48 → PCU 03-01 17:15
PROVIDERS: Internal Medicine; Internal Medicine Critical Care Medicine; Admitting Provider Hospitalist; Emergency Provider Emergency Medicine; Family Provider Internal Medicine; PCP Internal Medicine; Referring Provider Hospitalist; Visit Provider Internal Medicine
DX: T81.19XA Other postprocedural shock, initial encounter (principal); N18.6 End stage renal disease; T80.211A Bloodstream infection due to central venous catheter, initial encounter; J96.10 Chronic respiratory failure, unspecified whether with hypoxia or hypercapnia; Z68.41 Body mass index [BMI] 40.0-44.9, adult; I13.2 Hypertensive heart and chronic kidney disease with heart failure and with stage 5 chronic kidney disease, or end stage renal disease; I50.32 Chronic diastolic (congestive) heart failure; N02.8 Recurrent and persistent hematuria with other morphologic changes; E11.22 Type 2 diabetes mellitus with diabetic chronic kidney disease; D63.1 Anemia in chronic kidney disease; E66.01 Morbid (severe) obesity due to excess calories; N40.0 Benign prostatic hyperplasia without lower urinary tract symptoms; E78.5 Hyperlipidemia, unspecified; F32.9 Major depressive disorder, single episode, unspecified; Z99.2 Dependence on renal dialysis; G47.33 Obstructive sleep apnea (adult) (pediatric); G89.29 Other chronic pain; M54.5 Low back pain; R29.6 Repeated falls; I48.0 Paroxysmal atrial fibrillation; J44.9 Chronic obstructive pulmonary disease, unspecified; Z99.81 Dependence on supplemental oxygen; M1A.9XX0 Chronic gout, unspecified, without tophus (tophi); Z79.01 Long term (current) use of anticoagulants; I95.3 Hypotension of hemodialysis; I45.10 Unspecified right bundle-branch block; I73.9 Peripheral vascular disease, unspecified; I27.29 Other secondary pulmonary hypertension
CPT/HCPCS: 36415; 71045; 80048; 80202; 82962; 84484; 85025; 85610; 87040; 90937; 92526; 92610; 93005; 94002; 94003; 94640; 97110; 97163; 97166; 97530; 97802; 99251; 99285; J7030; J7050; J7120; A4216; G0257; G0463

== ENCOUNTER 2019-03-05 05:59 | Emergency (ER) | payer MEDICARE, SELFPAY ==
[2019-02-27 01:01] VITALS: BMI 43.7
[2019-03-05 06:00] VITALS: BP 91/57; PULSE 93; RESP 22; TEMP 36.2; O2SAT 96; BMI 45.8
[2019-03-05 06:05] VITALS: BP 91/57; PULSE 93; RESP 22; TEMP 36.2; O2SAT 96
[2019-03-05 06:09] VITALS: BP 91/57; PULSE 97; RESP 22; O2SAT 96
[2019-03-05 06:11] LABS: Bedside Glucose 175 mg/dL (70-110)
--- NOTE | 2019-03-05 06:11 | ED.RN ---
WHILE COMPLETING ASSESSMENT, PT BECAME RESPONSIVE AND ANSWERING QUESTIONS. POA AT THE BEDSIDE. PT DENIES PAIN.
--- NOTE | 2019-03-05 06:13 | EKG12_ITS ---
Test Reason : UNRESPONSIVE Blood Pressure : / mmHG Vent. Rate : 081 BPM Atrial Rate : 077 BPM P-R Int : 000 ms QRS Dur : 146 ms QT Int : 422 ms P-R-T Axes : 000 255 068 degrees QTc Int : 490 ms Junctional rhythm with Right bundle branch block , Premature ventricular complexes Right bundle branch block Septal infarct , age undetermined Abnormal ECG Confirmed by ENZO LEWIS ([id number]), makeup editor TOSHIA CAPPS ([id number]) on 03/09/2019 2:54:50 PM Referred By: [email or web address] Confirmed By:ENZO LEWIS
--- NOTE | 2019-03-05 06:13 | RAD_ITS ---
STUDY: X-RAY CHEST REASON FOR EXAM: Male, 69 years old. Shortness of breath TECHNIQUE: 2 AP portable views of the chest. COMPARISON: February 26, 2019, January 06, 2017 chest x-ray FINDINGS: There is a prominent appearance of the right hilum with an almost masslike focus that measures 3.5 x 3.3 cm. There is a elevated and blunted appearance of the right costophrenic angle. There is peribronchial inflammatory change in the left greater than right chest. There is mild cardiac enlargement. Normal mediastinum and tyron. Normal visualized pulmonary arteries. Normal visualized aortic arch and descending thoracic aorta. There are diffuse degenerative changes of the visualized thoracic spine. Normal visualized ribs, clavicles, and shoulders. There is no demonstrated abnormality of the visualized soft tissue structures of the upper abdomen. RAD/Chest 1 View (Portable) IMPRESSION: Limited study demonstrating a focal masslike density in the right hilum which may represent summation of shadows versus a lymph node or mass. Pleural effusion and/or consolidation. Peribronchial thickening. Consider mild edema recommend consideration for follow-up study such as CT scan of the chest without contrast when appropriate. Electronically Signed: Lolita Fletcher MD at 7:37 EST Tel , Service support ,
[2019-03-05 06:15] VITALS: O2SAT 96
[2019-03-05 06:23] LABS: Absolute Lymphocyte Count 0.86 X10^3/uL (0.83-4.51); Absolute Neutrophil Count 5.4 X10^3/uL (2.0-7.7); Basophil# 0.04 X10^3/uL; Basophil% 0.5 % (0-1); Eosinophil# 0.26 X10^3/uL; Eosinophils% 3.6 % (0-5); Hematocrit 41.3 % (40-54); Lymphocyte # 0.86 X10^3/ul (4.0); Lymphocyte % 11.8 % (19-41); Mean Corp Hgb Conc 29.1 g/dL (32-36); Mean Corpuscular Hgb 29.6 pg (27.0-32.0); Mean Corpuscular Volume 101.7 fL (80-94); Mean Platelet Vol. 11.9 fl (6.2-12.0); Monocyte# 0.66 X10^3/uL; Monocyte% 9.1 % (0-10); NRBC Flagged by Analyzer 0.3 % (0-5); Neutrophil # 5.43 X10^3/uL (2.7-7.7); Neutrophil % 74.5 % (47-70); Platelet Count 142 K/mm3 (150-450); RBC Distribution Width CV 17.6 % (11.6-14.6); RBC Distribution Width SD 64.8 fl (35.1-43.9); Red Blood Count 4.06 M/mm3 (4.6-6.2); White Blood Count 7.3 K/mm3 (4.4-11.0)
--- NOTE | 2019-03-05 06:23 | ED.VIS.GEN ---
History of Present Illness Chief Complaint: Unresponsive Informant: Certified Ophthalmic Surgical Assistant Narrative: Paramedics went to bean picker the patient for dialysis this morning as an outpatient. He stated he was unresponsive. [facility] staff stated he was responsive approximately an hour prior when he ate breakfast. Patient was brought here for further evaluation. They stated he was in a bradycardic rhythm with rates in the 20s at times. On arrival the patient is altered mental status with decreased responsiveness. After 5 minutes however the patient returned to his baseline. Patient denies any complaints at this time. He is due for dialysis today. He was recently mid to the hospital for low blood pressure after dialysis. He is on Midodrine for chronic low hypotension. He is a DNR CCA. - Past Medical History (1) Hypotension Status: Acute Comment: secondary to volume depletion (2) Hypotension Status: Acute (3) Anemia of chronic renal failure Status: Chronic (4) BPH (benign prostatic hyperplasia) Status: Chronic (5) COPD (chronic obstructive pulmonary disease) Status: Chronic Comment: With chronic respiratory failure On 3 L nasal cannula (6) Chronic gout Status: Chronic (7) Chronic low back pain Status: Chronic (8) Depression Status: Chronic (9) Diabetes mellitus, type 2 Status: Chronic Comment: DIET CONTROLLED (10) Diastolic Dysfunction EF 60% Status: Chronic (11) ESRD (end stage renal disease) on dialysis Status: Chronic (12) Falls frequently Status: Chronic (13) Hyperlipidemia Status: Chronic (14) IgA nephropathy Status: Chronic (15) Left kidney mass Status: Chronic (16) KATHY on CPAP Status: Chronic 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 (17) Paroxysmal atrial fibrillation Status: Chronic (18) Pulmonary hypertension Status: Chronic (19) Super obesity Status: Chronic Comment: bmi 64 (20) Benign hypertension Status: Inactive (21) Problem with dialysis access Status: Inactive (22) Septic shock Status: Inactive Past Medical History - Allergies and Home Meds Allergies/Adverse Reactions: Allergies mirtazapine [From Remeron] Allergy (Verified 02/26/19 21:49) forgetful, doesn't remember anything Sulfa (Sulfonamide Antibiotics) Allergy (Verified 02/26/19 21:49) bleeding from kidneys aspirin Adverse Reaction (Verified 02/26/19 21:49) Nausea oxycodone HCl [From Percodan] Adverse Reaction (Verified 02/26/19 21:49) Nausea oxycodone terephthalate [From Percodan] Adverse Reaction (Verified 02/26/19 21:49) Nausea Primary Care Physician: Heraclio Whitehead MD [Primary Care Provider] - Prior records reviewed: Yes Past Medical History: - - See problem list Surgical History: colectomy, total knee arthroplasty, - Lives: [facility] Smoking Status: Unknown if ever smoked Alcohol: None Drugs: None - Family History Maternal Family History: Reports: COPD, Diabetes, Heart Disease, Hypertension - He, Pulmonary Disease, Renal Disease Paternal Family History: Reports: No pertinent history Additional Family History: No family history of ESR disease Review of Systems General: Denies: Chills, Fever, Sweats Eyes: Denies: Visual changes - bilaterally, Diplopia ENT: Denies: Rhinorrhea, Sore throat Cardiovascular: Denies: Chest pain, Palpitations Respiratory: Denies: Dyspnea, Cough, Dyspnea on exertion Gastrointestinal: Denies: Abdominal pain, Nausea, Vomiting, Diarrhea, Melena, Hematochezia Genitourinary: Denies: Dysuria, Hematuria, Frequency Musculoskeletal: Denies: Back pain, Extremity Pain Skin: Denies: Rash, Wounds Neurological: Denies: Headache, Weakness, Numbness Physical Exam Vital Signs/Narrative: Vital Signs Temp Pulse Resp BP Pulse Ox 03/05/19 06:15 96 03/05/19 06:09 97 22 H 91/57 L 96 03/05/19 06:05 97.2 F L 93 22 H 91/57 L 96 03/05/19 06:00 97.2 F L 93 22 H 91/57 L 96 General: Well nourished, Well developed, No Acute Distress Head: Normocephalic, Atraumatic Eyes: Perrl, EOMI ENT: Moist mucous membranes, No rhinorrhea Neck: Supple, Nontender Cardiovascular: Regular rate, Regular rhythm, No murmurs Respiratory: No distress, CTA bilaterally, Chest nontender Abdomen: Soft, Nontender, Nondistended, Normal bowel sounds Back: Nontender, Normal Inspection Extremities: Nontender, No edema Skin: Normal color, No rash Neurological: Alert, Oriented x3, Cranial nerves II-XII grossly intact, Normal Strength, Normal Sensation Psychological: Normal affect, Normal Mood Diagnostic/Tx/Re-eval - Medical Decision Making Patient does not receive narcotics. Blood sugar upon arrival was normal. Placed on nasal cannula. EKG obtained shows junctional rhythm with a right bundle at a rate of 81. This is unchanged from prior EKG just recently on February 26. Patient denies any complaints. Lab work obtained as well as chest x-ray. X-ray shows chronic changes without any acute infiltrates. Lab work shows a chronic anemia. Chronic azotemia secondary to end-stage renal disease. On reevaluation patient remains back to baseline. Resting comfortably. Perhaps he had a short transient bradycardia. This was never documented but told to me by EMS. He would like to be discharged and I think this is reasonable. ED Disposition - Plan for ED Patient: Disposition: Home or Assisted Living Diagnosis: Mental status, decreased Instructions: Confusion Referrals: Heraclio Whitehead MD [Primary Care Provider] -
[2019-03-05 06:33] LABS: Anion Gap 5 (5-15); BUN 38 mg/dL (7-18); BUN/Creat Ratio 6.4 RATIO (10-20); Calcium,Total 8.6 mg/dL (8.5-10.1); Chloride 99 mmol/L (98-107); Creatinine, Serum 5.92 mg/dL (0.70-1.30); EST Glomerular Filtration Rate 10 mL/min (>60); Est Glom Filt Rate - Afr Amer 12 mL/min (>60); Estimated Creatinine Clearance 11.78 ml/min; Glucose 179 mg/dL (74-106); Potassium 4.7 mmol/L (3.5-5.1); Sodium Level 137 mmol/L (136-145)
[2019-03-05 06:52] VITALS: BP 101/67; PULSE 83; RESP 16; O2SAT 95
[2019-03-05 07:41] LABS: Bedside Glucose 164 mg/dL (70-110)
== END 2019-03-05 07:51 | disposition home or self-care (01) ==
PROVIDERS: Emergency Provider Emergency Medicine; Family Provider Internal Medicine; PCP Internal Medicine
DX: R41.82 Altered mental status, unspecified (principal); E11.22 Type 2 diabetes mellitus with diabetic chronic kidney disease; N18.6 End stage renal disease; Z99.2 Dependence on renal dialysis; D63.1 Anemia in chronic kidney disease; N02.8 Recurrent and persistent hematuria with other morphologic changes; I27.20 Pulmonary hypertension, unspecified; I95.9 Hypotension, unspecified; R00.1 Bradycardia, unspecified; J44.9 Chronic obstructive pulmonary disease, unspecified; J96.10 Chronic respiratory failure, unspecified whether with hypoxia or hypercapnia; I48.0 Paroxysmal atrial fibrillation; E78.5 Hyperlipidemia, unspecified; M1A.9XX0 Chronic gout, unspecified, without tophus (tophi); G89.29 Other chronic pain; M54.5 Low back pain; N40.0 Benign prostatic hyperplasia without lower urinary tract symptoms; G47.33 Obstructive sleep apnea (adult) (pediatric); F32.9 Major depressive disorder, single episode, unspecified; E66.01 Morbid (severe) obesity due to excess calories; Z68.44 Body mass index [BMI] 60.0-69.9, adult; Z79.899 Other long term (current) drug therapy; Z79.01 Long term (current) use of anticoagulants; Z88.2 Allergy status to sulfonamides; Z88.5 Allergy status to narcotic agent; Z88.6 Allergy status to analgesic agent; Z91.81 History of falling
CPT/HCPCS: 71045; 80048; 82962; 85025; 93005; 99285; A4216

== ENCOUNTER 2019-03-06 01:05 | Inpatient (IN) | payer MEDICARE, SELFPAY ==
[2019-03-05 06:00] VITALS: BMI 45.8
[2019-03-06] VITALS (30 sets, daily range): BP systolic 74–141; BP diastolic 23–122; PULSE 61–90; RESP 12–28; TEMP 35.5–36.8; O2SAT 88–100; BMI 46.4; BMI 48.6
[2019-03-06 01:20] LABS: Bedside Glucose 155 mg/dL (70-110)
--- NOTE | 2019-03-06 01:25 | EKG12_ITS ---
Test Reason : Blood Pressure : / mmHG Vent. Rate : 084 BPM Atrial Rate : 089 BPM P-R Int : 000 ms QRS Dur : 148 ms QT Int : 430 ms P-R-T Axes : 000 -75 067 degrees QTc Int : 508 ms Wide QRS rhythm with occasional Premature ventricular complexes Left axis deviation Right bundle branch block Septal infarct , age undetermined Abnormal ECG Confirmed by ENZO LEWIS ([id number]), editorial cartoonist TOSHIA CAPPS ([id number]) on 03/09/2019 2:35:57 PM Referred By: JESUS Confirmed By:ENZO LEWIS
--- NOTE | 2019-03-06 01:26 | ED.DCSUM_ITS ---
History of Present Illness Chief Complaint: Mental Status Change Informant: SNF Onset: Today Context: - - unk onset Quality: lethargic/unresponsive Current Severity: Severe Maximum Severity: Severe Worsened by: unk Relieved by: unk Narrative: Very little information given. Decreased level of consciousness/unresponsive, blood sugar 155. Unknown time of onset/duration of symptoms. Was altered this morning and discharged to longterm, had dialysis. - Past Medical History (1) Anemia of chronic renal failure Status: Chronic (2) BPH (benign prostatic hyperplasia) Status: Chronic (3) COPD (chronic obstructive pulmonary disease) Status: Chronic Comment: With chronic respiratory failure On 3 L nasal cannula (4) Chronic gout Status: Chronic (5) Chronic low back pain Status: Chronic (6) Depression Status: Chronic (7) Diabetes mellitus, type 2 Status: Chronic Comment: DIET CONTROLLED (8) Diastolic Dysfunction EF 60% Status: Chronic (9) ESRD (end stage renal disease) on dialysis Status: Chronic (10) Hyperlipidemia Status: Chronic (11) IgA nephropathy Status: Chronic (12) Left kidney mass Status: Chronic (13) KATHY on CPAP Status: Chronic 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 (14) Paroxysmal atrial fibrillation Status: Chronic (15) Pulmonary hypertension Status: Chronic (16) Super obesity Status: Chronic Comment: bmi 64 (17) Benign hypertension Status: Inactive Past Medical History - Allergies and Home Meds Allergies/Adverse Reactions: Allergies mirtazapine [From Remeron] Allergy (Verified 03/06/19 01:07) forgetful, doesn't remember anything Sulfa (Sulfonamide Antibiotics) Allergy (Verified 03/06/19 01:07) bleeding from kidneys aspirin Adverse Reaction (Verified 03/06/19 01:07) Nausea oxycodone HCl [From Percodan] Adverse Reaction (Verified 03/06/19 01:07) Nausea oxycodone terephthalate [From Percodan] Adverse Reaction (Verified 03/06/19 01:07) Nausea Primary Care Physician: Heraclio Whitehead MD [Primary Care Provider] - Surgical History: colectomy, total knee arthroplasty, - Smoking Status: Unknown if ever smoked - Family History Maternal Family History: Reports: COPD, Diabetes, Heart Disease, Hypertension - He, Pulmonary Disease, Renal Disease Paternal Family History: Reports: No pertinent history Additional Family History: No family history of ESR disease Review of Systems ROS: Unable to Obtain Physical Exam Vital Signs/Narrative: Vital Signs Temp Pulse Resp BP Pulse Ox 03/06/19 01:08 96.5 F L 85 28 H 141/122 H 93 Inital Vital Signs reviewed: Yes General: Well nourished, Well developed, Obese Head: Normocephalic, Atraumatic Eyes: Perrl ENT: No rhinorrhea, Dry mucous membranes Neck: Supple - without meningismus Cardiovascular: Regular rate, Regular rhythm, No murmurs. Negative for: Tachycardia Respiratory: CTA bilaterally, Chest nontender, - - no distress, shallow breathing Abdomen: Soft, Nontender, Nondistended, Normal bowel sounds Back: Nontender, Normal Inspection Extremities: Nontender, No edema, - - Good thrill of AV fistula left upper extremity Skin: Normal color, No rash, No Trauma Neurological: Cranial nerves II-XII grossly intact, Normal Strength, Normal Sensation, Lethargic - briefly alerts to phys stim, but does not follow commands. withdraws to some painful stim, localizes to others. GCS 25/=8. Diagnostic/Tx/Re-eval Impressions Brain CT 03/06/19 01:26 IMPRESSION: No acute intracranial abnormality. Worsening left mastoid air cell disease consistent with mastoiditis. Increasing left middle ear disease consistent with otitis media. Chronic changes as above. ASPECT 10. Individualized dose optimization techniques were used for this CT. at 0255 Reported and signed by: Ashok Mead MD Electronically Signed: Ashok Mead MD at 2:54 EST Tel , Service support , Chest X-Ray 03/06/19 01:30 IMPRESSION: Congestive heart failure. Electronically Signed: Tomasa Tyler, at 3:25 EST Tel , Service support , 03/06/19 01:26 CT Brain [Brain/Head without Contrast] [CT] Stat 03/06/19 01:30 Chest 1 View (Portable) [RAD] Stat Laboratory Results 03/06/19 03/06/19 03/06/19 01:17 01:25 01:25 WBC 5.9 RBC 4.23 L Hgb 12.5 L Hct 43.5 MCV 102.8 H MCH 29.6 MCHC 28.7 L RDW Std Deviation 65.4 H RDW Coeff of [place] 17.6 H Plt Count 134 L MPV 11.3 Immature Gran % (Auto) 0.300 Neut % (Auto) 66.2 Lymph % (Auto) 16.5 L [place] % (Auto) 12.8 H Eos % (Auto) 3.5 Baso % (Auto) 0.7 Absolute Neuts (auto) 3.9 Absolute Lymphs (auto) 0.98 Nucleated RBC % 0 Platelet Estimate SLT DEC Hypochromasia 1+ Anisocytosis 1+ Macrocytosis 1+ PT 54.6 H INR 6.0 H* APTT 74.5 H Specimen Type Sample Site VBG pH VBG pO2 VBG O2 Sat (Calc) VBG O2 Content VBG Base Excess POC Mix VBG pCO2 Pt Tmp O2 Delivery Device Liter Flow Blood Gas Notified Whom Sodium Potassium Chloride Carbon Dioxide Anion Gap BUN Creatinine Estim Creat Clear Calc Est GFR (MDRD) Af Amer Est GFR (MDRD) Non-Af BUN/Creatinine Ratio Glucose Lactic Acid Calcium Total Bilirubin AST ALT Alkaline Phosphatase Troponin I Total Protein Albumin Globulin Albumin/Globulin Ratio POC Glucose 155 H 03/06/19 03/06/19 03/06/19 01:25 01:25 02:16 WBC RBC Hgb Hct MCV MCH MCHC RDW Std Deviation RDW Coeff of [place] Plt Count MPV Immature Gran % (Auto) Neut % (Auto) Lymph % (Auto) [place] % (Auto) Eos % (Auto) Baso % (Auto) Absolute Neuts (auto) Absolute Lymphs (auto) Nucleated RBC % Platelet Estimate Hypochromasia Anisocytosis Macrocytosis PT INR APTT Specimen Type KIMBERLY Sample Site OTHER VBG pH 7.19 L* VBG pO2 43 H VBG O2 Sat (Calc) 64 VBG O2 Content 37 H VBG Base Excess 6 H POC Mix VBG pCO2 Pt Tmp 91.3 H* O2 Delivery Device Nasal Can Liter Flow 4.0 Blood Gas Notified Whom ED Sodium 139 Potassium 4.4 Chloride 100 Carbon Dioxide 33.0 H Anion Gap 6 BUN 43 H Creatinine 5.29 H Estim Creat Clear Calc 13.61 Est GFR (MDRD) Af Amer 14 L Est GFR (MDRD) Non-Af 12 L BUN/Creatinine Ratio 8.1 L Glucose 130 H Lactic Acid 1.2 Calcium 9.2 Total Bilirubin 0.50 AST 23 ALT 14 L Alkaline Phosphatase 158 H Troponin I 0.080 H Total Protein 8.0 Albumin 2.7 L Globulin 5.3 H Albumin/Globulin Ratio 0.5 L POC Glucose - Rhythm Strip Rhythm Strip: Sinus Rhythm Rate: 85 Ectopy: PVC(s) - EKG Initial EKG Interpretation: Sinus Rhythm - vs. accelerated junctional rhythm, No Acute Injury Pattern, RBBB, - - multifocal PVCs Prior: Unchanged - Medical Decision Making Patient was initially given Narcan although the narcotics are not on his medication list, just to make sure he did not receive any at dialysis. He did not have any response. ABG shows significant respiratory acidosis. He was placed on BiPAP. His blood pressure improved with fluids. Chest x-ray interpreted as CHF, however is limited due to obesity and cardiomegaly, and does not appear that much different compared with his previous x-ray less than 24 hours ago. After placing him on BiPAP, he started becoming more alert whereas initially he was extremely lethargic/stuporous. Unknown if he truly is in acute CHF or not. He just had an echocardiogram 2 weeks ago; it showed a normal ejection fraction but the diastolic function was unable to be determined. The study was limited due to obesity and was transthoracic. Troponin is nonspecifically elevated, but his EKG shows nothing acute and no changes compared with his old EKG, and in the context of chronic renal failure, this can be monitored and does not need acted on acutely/emergently. His INR 6.0. His head scan shows no sign of intracranial hemorrhage and there is no clinical evidence of bleeding otherwise, so the treatment for this would be to hold warfarin. Plan is for admission. I see no sign of an obvious infection. Apparently patient has a history of needing admission because of hypotension after dialysis. That certainly could have been the case here, causing the acute respiratory acidosis secondarily. His blood pressure is better now. ED Disposition - Plan for ED Patient: Disposition: Acute Care Hospital [facility] Diagnosis: Acute hypercapnic respiratory failure, COPD (chronic obstructive pulmonary disease), Transient hypotension Referrals: Heraclio Whitehead MD [Primary Care Provider] -
--- NOTE | 2019-03-06 01:26 | CT_ITS ---
HISTORY: ALTERED MENTAL STATUS,PT WAS SEEN IN ER EARLIER FOR DECREASED LOC,HAD DIALYSIS TODAYHX:HTN,DIABETES,COPD,CRF Technique:CT Head or Brain W/O Contrast Injection Number of Images including paperwork:264 Comparison: CT scan of the brain from February 19, 2019 Findings: CT images of the head were obtained without contrast. Periventricular deep and subcortical white matter disease is present. Paranasal sinuses are clear. The brain is atrophic. Calcific ASCVD involves intracranial arteries. No acute intracranial edema or hemorrhage. No acute abnormality of orbits. Increase in the amount of fluid within the left mastoid air cells. Some fluid is also now present within the left middle ear cavity which is new. . Skull is normal. CT/Brain/Head without Contrast IMPRESSION: No acute intracranial abnormality. Worsening left mastoid air cell disease consistent with mastoiditis. Increasing left middle ear disease consistent with otitis media. Chronic changes as above. ASPECT 10. Individualized dose optimization techniques were used for this CT. at 0255 Reported and signed by: Ashok Mead MD Electronically Signed: Ashok Mead MD at 2:54 EST Tel , Service support ,
--- NOTE | 2019-03-06 01:30 | RAD_ITS ---
STUDY: X-RAY CHEST REASON FOR EXAM: Male, 69 years old. MENTAL STATUS CHANGE -- SOB -- PT UNRESPONSIVE AND UNABLE TO COOPERATE WITH BREATHING INSTRUCTIONS TECHNIQUE: Single AP portable view of the chest. COMPARISON: None. FINDINGS: The lungs are underexpanded. There is a small right pleural effusion. There is moderate cardiac enlargement. Normal mediastinum and tyron. There is prominence of the pulmonary hilar arteries and peripheral pulmonary arteries, consistent with congestive heart failure (CHF). Normal visualized aortic arch and descending thoracic aorta. Normal visualized thoracic spine. Normal visualized ribs, clavicles, and shoulders. There is no demonstrated abnormality of the visualized soft tissue structures of the upper abdomen. RAD/Chest 1 View (Portable) IMPRESSION: Congestive heart failure. Electronically Signed: Tomasa Tyler, at 3:25 EST Tel , Service support ,
[2019-03-06] MEDS: Naloxone 0.4 MG/ML Syringe IV (01:39)
[2019-03-06 01:44] LABS: Absolute Lymphocyte Count 0.98 X10^3/uL (0.83-4.51); Absolute Neutrophil Count 3.9 X10^3/uL (2.0-7.7); Basophil# 0.04 X10^3/uL; Basophil% 0.7 % (0-1); Eosinophil# 0.21 X10^3/uL; Eosinophils% 3.5 % (0-5); Hematocrit 43.5 % (40-54); Hemoglobin 12.5 g/dL (13.0-16.5); Lymphocyte # 0.98 X10^3/ul (4.0); Lymphocyte % 16.5 % (19-41); Mean Corp Hgb Conc 28.7 g/dL (32-36); Mean Corpuscular Hgb 29.6 pg (27.0-32.0); Mean Corpuscular Volume 102.8 fL (80-94); Mean Platelet Vol. 11.3 fl (6.2-12.0); Monocyte# 0.76 X10^3/uL; Monocyte% 12.8 % (0-10); NRBC Flagged by Analyzer 0 % (0-5); Neutrophil # 3.92 X10^3/uL (2.7-7.7); Neutrophil % 66.2 % (47-70); POSITIVE MORPHOLOGY YES; Platelet Count 134 K/mm3 (150-450); RBC Distribution Width CV 17.6 % (11.6-14.6); RBC Distribution Width SD 65.4 fl (35.1-43.9); Red Blood Count 4.23 M/mm3 (4.6-6.2); White Blood Count 5.9 K/mm3 (4.4-11.0)
[2019-03-06 01:51] LABS: Differential Indicated SCAN CRITERIA MET; Prothrombin Time (Protime)PT. 54.6 SECONDS (11.7-14.9)
[2019-03-06 01:52] LABS: Partial Thromboplast Time 74.5 Seconds (24.1-36.2)
[2019-03-06 02:06] LABS: Anisocytosis 1+; Hypochromasia 1+; Macrocytosis 1+; Platelet Estimate SLT DEC (ADEQ)
[2019-03-06 02:07] LABS: Albumin, Serum 2.7 g/dL (3.2-5.0); BUN 43 mg/dL (7-18); BUN/Creat Ratio 8.1 RATIO (10-20); Creatinine, Serum 5.29 mg/dL (0.70-1.30); EST Glomerular Filtration Rate 12 mL/min (>60); Est Glom Filt Rate - Afr Amer 14 mL/min (>60); Estimated Creatinine Clearance 13.61 ml/min; Globulin 5.3 g/dL (2.2-4.2); Glucose 130 mg/dL (74-106)
[2019-03-06 02:08] LABS: ALB/GLOB Ratio 0.5 RATIO (0.9-2.4); AST(SGOT) 23 U/L (15-37); Alanine Aminotransfer ALT/SGPT 14 U/L (16-61); Alkaline Phosphatase 158 U/L (45-117); Anion Gap 6 (5-15); Calcium,Total 9.2 mg/dL (8.5-10.1); Chloride 100 mmol/L (98-107); Lactic Acid 1.2 mmol/L (0.4-1.9); Potassium 4.4 mmol/L (3.5-5.1); Sodium Level 139 mmol/L (136-145)
[2019-03-06 02:26] LABS: Blood Gas Specimen Type VEN; O2 Delivery Device Nasal Can; SITE OTHER; VBG BASE EXCESS 6 mmol/L (-1.0-3.5); VBG Bicarbonate 35 mmol/L (22-26); VBG Oxygen Content 37 mmol/L (23-33); VBG PO2 43 mmHg (25-40); VBG SO2 64 % (50-70); VBG pCO2 91.3 mmHg (41-51); VBG pH 7.19 (7.32-7.42)
--- NOTE | 2019-03-06 02:46 | CPS ---
RODRIGO obtained. critical results read back to Dr. Lopez
--- NOTE | 2019-03-06 04:33 | ED.RN ---
[facility] UPDATED WITH ADMISSION.
--- NOTE | 2019-03-06 04:39 | PCM.HP.STD ---
Problem List (1) Acute hypercapnic respiratory failure Status: Acute (2) Transient hypotension Status: Acute (3) ESRD (end stage renal disease) on dialysis Status: Chronic (4) Benign hypertension Status: Inactive (5) BPH (benign prostatic hyperplasia) Status: Chronic Qualifiers: Lower urinary tract symptom presence: symptoms absent Qualified Code(s): N40.0 - Benign prostatic hyperplasia without lower urinary tract symptoms (6) Depression Status: Chronic (7) Hyperlipidemia Status: Chronic Qualifiers: Hyperlipidemia type: pure hypercholesterolemia Qualified Code(s): E78.00 - Pure hypercholesterolemia, unspecified; E78.0 - Pure hypercholesterolemia (8) COPD (chronic obstructive pulmonary disease) Status: Chronic Qualifiers: COPD type: unspecified COPD Qualified Code(s): J44.9 - Chronic obstructive pulmonary disease, unspecified Comment: With chronic respiratory failure On 3 L nasal cannula (9) Chronic low back pain Status: Chronic (10) Paroxysmal atrial fibrillation Status: Chronic (11) Anemia of chronic renal failure Status: Chronic Qualifiers: Chronic kidney disease stage: stage 5 Qualified Code(s): N18.5 - Chronic kidney disease, stage 5; D63.1 - Anemia in chronic kidney disease; D63.1 - Anemia in chronic kidney disease History of Present Illness Date of Admission: 03/06/19 Chief Complaint: Unresponsiveness. The patient is a 69 year old M patient with past medical history as mentioned above presented to the emergency room from the care home because of unresponsiveness. The patient is poor informant and was not able to provide consistent detailed history. No family at the bedside. Patient has been alert and oriented x3. Upon arrival to ED and when he was evaluated by the ED physician, patient was lethargic, not following commands and his Nicki Coma Scale was 8. At this time, his Nicki Coma Scale is 15. Patient mentioned that he just rambled that he passed out, not sure for how long and he denied any symptoms preceding that episode of passing out. He denied chest pain, palpitation, dizziness, lightheadedness, shortness of breath, nausea or vomiting. He was not able to provide any more detailed history. Yesterday morning, patient was brought to the emergency department because he was unresponsive at the dialysis center. He was evaluated and he was sent back to the care home. This morning, patient came back because of the same complaint. He was discharged from this hospital on March 03, 2019 after admission for hypovolemic shock due to fluid removal at dialysis as well as recent MRSA bacteremia with septic shock. He had a history of ESRD on hemodialysis on Mondays, Wednesdays and Fridays. Today, his BUN is 43, creatinine is 5.29 and potassium is normal. He has a history of type 2 diabetes mellitus which has been under control with diet, not on any diabetic medications. He has history of COPD with chronic respiratory failure and he has been on 3 L at the care home. He had a history of paroxysmal atrial fibrillation, only on Coumadin for anticoagulation and his INR today 6. Upon arrival to ED, patient was lethargic, not following commands with a Nicki Coma Scale of 8. Patient was hypotensive, blood pressure was as low as 74/38, afebrile, heart rate stable, pulse ox was 93% on 4 L. He received 500 bolus of IV normal saline and his blood pressure slightly improved. His routine blood work was remarkable for BUN of 43, creatinine 5.29. Lactic acid was normal. Troponin was 0.08. EKG revealed normal sinus rhythm, PVCs, wide QRS, RBBB, no acute skin changes and no new changes compared to previous EKG. CT scan brain showed no acute infarct or hemorrhage, revealed worsening left mastoid air cell disease consistent with mastoiditis, increasing left middle ear disease consistent with otitis media. Chest x-ray revealed cardiomegaly and mild bilateral pulmonary vascular congestion. He is being admitted for acute on chronic hypercapnic respiratory failure, metabolic encephalopathy and left mastoiditis as well as left otitis media. 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 COPD (chronic obstructive pulmonary disease) (Chronic) With chronic respiratory failure On 3 L nasal cannula Left kidney mass (Chronic) Super obesity (Chronic) bmi 64 Chronic low back pain (Chronic) Pulmonary hypertension (Chronic) Paroxysmal atrial fibrillation (Chronic) Anemia of chronic renal failure (Chronic) Falls frequently (Chronic) Medical History: Medical History (Last Reviewed 02/27/19 @ 02:45 by Stew Aldrich MD) ESRD (end stage renal disease) on dialysis (Chronic) N18.6, Z99.2 Benign hypertension (Inactive) I10 BPH (benign prostatic hyperplasia) (Chronic) Depression (Chronic) F32.9 Hyperlipidemia (Chronic) E78.5 IgA nephropathy (Chronic) N02.8 Chronic gout (Chronic) [id number] Diabetes mellitus, type 2 (Chronic) E11.9 DIET CONTROLLED Diastolic Dysfunction EF 60% (Chronic) COPD (chronic obstructive pulmonary disease) (Chronic) J44.9 With chronic respiratory failure On 3 L nasal cannula Left kidney mass (Chronic) N28.89 Chronic low back pain (Chronic) M54.5, G89.29 Pulmonary hypertension (Chronic) I27.2 Paroxysmal atrial fibrillation (Chronic) I48.0 Anemia of chronic renal failure (Chronic) N18.9, D63.1 Atrial fibrillation I48.91 Osteomyelitis (Inactive) M86.9 distal phalanx of the middle finger on the left hand Vertebral osteomyelitis, acute (Inactive) M46.20 12/22/14 24 hours no growth. 12/21/14 1/2 cultures w/ staph aureus. Suspected source vertebral osteomyelitis, unable to confirm as unable to obtain GOLD standard MRI secondary to habitus. Allergies mirtazapine [From Remeron] Allergy (Verified 03/06/19 01:07) forgetful, doesn't remember anything Sulfa (Sulfonamide Antibiotics) Allergy (Verified 03/06/19 01:07) bleeding from kidneys aspirin Adverse Reaction (Verified 03/06/19 01:07) Nausea oxycodone HCl [From Percodan] Adverse Reaction (Verified 03/06/19 01:07) Nausea oxycodone terephthalate [From Percodan] Adverse Reaction (Verified 03/06/19 01:07) Nausea Home Medications: Ambulatory Orders Medication Instructions Recorded Calcium Acetate [Phoslo Gel Cap] 1,334 mg PO BID 11/08/16 ferrous sulfate 325 mg (65 mg 325 mg PO BID tab 05/12/18 iron) tablet,delayed release umeclidinium 62.5 mcg/actuation 1 inh INHALATION LUNCH 05/12/18 blister powder for inhalation B Complex W-C No.20/Folic Acid 1 mg PO DAILY@1200 08/18/18 [Virt-Caps Softgel] Docusate Sodium [Colace] 200 mg PO BID 08/18/18 Escitalopram Oxalate [Lexapro] 10 mg PO DAILY 08/18/18 Fluticasone/Vilanterol [Breo 1 ea IH DAILY 08/18/18 Ellipta 100-25 Mcg INH] Pantoprazole Sodium [Protonix] 40 mg PO DAILY 08/18/18 Midodrine HCl 10 mg PO BID #60 tab 01/08/19 Acetaminophen [Tylenol] 650 mg PO Q4H PRN PRN 02/18/19 Ascorbic Acid 500 mg PO DAILY 02/18/19 Ipratropium/Albuterol Sulfate 3 ml INHALATION Q6H.RT 02/18/19 [Duoneb] Multivit,Tx with Iron,Minerals 1 tab PO DAILY 02/18/19 [Thera-M] Ondansetron HCl 8 mg PO BID PRN PRN 02/18/19 Vancomycin IV Pharmacy to Dose 1,500 ea IV UD 38 Days #15 ea 02/25/19 Gabapentin [Neurontin] 300 mg PO BID 5 Days #10 cap 03/02/19 Nystatin Powder [Mycostatin Powder] 1 applic TOPICAL TID bottle 03/02/19 Warfarin [Coumadin] 4 mg PO DAILY #1 tab 03/02/19 Surgical History: Surgical History (Last Reviewed 02/27/19 @ 02:45 by Stew Aldrich MD) History of arteriovenostomy for renal dialysis Z99.2 History of cholecystectomy Z90.49 History of colonoscopy Z98.890 History of total bilateral knee replacement Z96.653 Status post biopsy of kidney Z98.890 Surgical History: colectomy, total knee arthroplasty, - Psychiatric History: No pertinent psych hx Lives: Care Home Smoking Status: Never smoker Alcohol: None Drugs: None - *Family History Maternal History Items: COPD, Diabetes, Heart Disease, Hypertension - He, Renal Disease Paternal History Items: No pertinent history Review of Systems Constitutional: Denies: Anorexia, Chills, Fever, Weakness Eyes: Denies: Blurred vision, Double vision, Drainage, Redness HEENT: Reports: Ear Pain. Denies: Difficulty Hearing, Eye Pain, Nasal Congestion, Sore Throat Cardiovascular: Denies: Chest Pain, Chest Pressure, Chest Tightness, Palpitations, Syncope Respiratory: Reports: Shortness of Breath. Denies: Cough, Pleuritic Pain, Sputum production, Wheezing Gastrointestinal: Denies: Abdominal Pain, Constipation, Diarrhea, Nausea, Vomiting Genitourinary: Denies: Dysuria, Frequency, Hematuria Musculoskeletal: Denies: Arm Pain, Back Pain, Foot Pain Skin: Denies: Dryness, Rash Neurological: Denies: Balance problems, Double vision, Change in Speech, Slurred speech, Focal weakness, Headaches Psychiatric: Reports: Depression. Denies: Anxiety Endocrine: Denies: Change in Body Habitus, Polydipsia, Polyuria VTE Information - Inpt Only VTE Present on Admission: No VTE Mechan Device Prophylaxis: None VTE Pharm Prophylaxis ordered?: No Patient Problems: Active and Suspected Problems (Last Reviewed 02/27/19 @ 02:45 by Stew Aldrich MD) Acute hypercapnic respiratory failure (Acute) Transient hypotension (Acute) - Physical Exam Vitals/I&O's: Vital Signs Temp Pulse Resp BP Pulse Ox 97.0 F L 85 24 H 91/51 L 98 03/06/19 04:31 03/06/19 04:31 03/06/19 04:28 03/06/19 04:31 03/06/19 04:31 Oxygen Flow Rate (L/min) 4 Oxygen Delivery Method Bi-pap Weight: 323 lb 10.217 oz Body Mass Index (BMI) 46.4 Finger Stick Blood Glucose 155 Intake and Output for Last 24 Hours 03/04/19 03/05/19 03/06/19 23:59 23:59 23:59 Intake Total 500 / 500 Balance 500 / 500 General: Alert, Cooperative, No apparent distress, Well nourished HEENT: Atraumatic, PERRLA, EOMI, Normocephalic Oral: Moist Mucosa, No Gingival or Mucosal Lesions/ Ulcerations Neck: Supple, No JVD, Negative Carotid Bruits, Trachea Midline, Thyroid Normal Size and Texture Lungs: Clear to auscultation, No rhonchi, No wheeze, No rales, Diminished, Rhonchi, Short of Breath Cardiovascular: Regular rate, Regular Rhythm, Normal S1, Normal S2, PMI Normal Abdomen: Bowel Sounds Present, Soft, Non Tender, Non-Distended, No Hepato-splenomegaly, Obese Extremities: No clubbing, No cyanosis, Edema - Trace edema, stasis dermatitis. Skin: No rashes, - - Left arm ecchymosis/bruise. Lymphatic: No Cervical, Supraclavicular, or Inguinal Adenopathy Neurological: Cranial nerves II-XII grossly intact, Motor Exam 5/5 strength throughout Psych/Mental Status: Normal Affect, Appropriate Laboratory Results 03/06/19 01:17: POC Glucose 155 H 03/06/19 01:25: WBC 5.9, RBC 4.23 L, Hgb 12.5 L, Hct 43.5, MCV 102.8 H, MCH 29.6, MCHC 28.7 L, RDW Std Deviation 65.4 H, RDW Coeff of [place] 17.6 H, Plt Count 134 L, MPV 11.3, Immature Gran % (Auto) 0.300, Neut % (Auto) 66.2, Lymph % (Auto) 16.5 L, [place] % (Auto) 12.8 H, Eos % (Auto) 3.5, Baso % (Auto) 0.7, Absolute Neuts (auto) 3.9, Absolute Lymphs (auto) 0.98, Nucleated RBC % 0, Platelet Estimate SLT DEC, Hypochromasia 1+, Anisocytosis 1+, Macrocytosis 1+ 03/06/19 01:25: PT 54.6 H, INR 6.0 H*, APTT 74.5 H 03/06/19 01:25: Sodium 139, Potassium 4.4, Chloride 100, Carbon Dioxide 33.0 H, Anion Gap 6, BUN 43 H, Creatinine 5.29 H, Estim Creat Clear Calc 13.61, Est GFR (MDRD) Af Amer 14 L, Est GFR (MDRD) Non-Af 12 L, BUN/Creatinine Ratio 8.1 L, Glucose 130 H, Calcium 9.2, Total Bilirubin 0.50, AST 23, ALT 14 L, Alkaline Phosphatase 158 H, Troponin I 0.080 H, Total Protein 8.0, Albumin 2.7 L, Globulin 5.3 H, Albumin/Globulin Ratio 0.5 L 03/06/19 01:25: Lactic Acid 1.2 03/06/19 02:16: Specimen Type KIMBERLY, Sample Site OTHER, VBG pH 7.19 L*, VBG pO2 43 H, VBG O2 Sat (Calc) 64, VBG O2 Content 37 H, VBG Base Excess 6 H, POC Mix VBG pCO2 Pt Tmp 91.3 H*, O2 Delivery Device Nasal Can, Liter Flow 4.0, Blood Gas Notified Whom ED MD Clinical Impression(s) from Imaging Studies Brain CT 03/06/19 01:26 IMPRESSION: No acute intracranial abnormality. Worsening left mastoid air cell disease consistent with mastoiditis. Increasing left middle ear disease consistent with otitis media. Chronic changes as above. ASPECT 10. Individualized dose optimization techniques were used for this CT. at 0255 Reported and signed by: Ashok Mead MD Electronically Signed: Ashok Mead MD at 2:54 EST Tel , Service support , Chest X-Ray 03/06/19 01:30 IMPRESSION: Congestive heart failure. Electronically Signed: Tomasa Tyler, at 3:25 EST Tel , Service support , Assessment/Plan All Active Problems (Last Reviewed 02/27/19 @ 02:45 by Stew Aldrich MD) Acute hypercapnic respiratory failure (Acute) Transient hypotension (Acute) This is a 69 years old male patient presented to the emergency room because of episode of decreased level of consciousness/syncope, found to have acute on chronic hypercarbic respiratory failure and transient hypotension as well as incidental finding of acute left mastoiditis on CT scan brain and is being admitted for evaluation and treatment. #1 acute on chronic hypercapnic respiratory failure: Probably due to diastolic CHF caused by transient hypotension. Venous blood gas reviewed, revealed pH of 7.19, PCO2 of 91. Chest x-ray revealed cardiomegaly and mild pulmonary vascular congestion. Initially, patient was lethargic and unresponsive. After given IV fluids and BiPAP, he woke up and he was alert and oriented. Blood pressure improved, has been afebrile, heart rate stable. Plan: Admit to PCU, cardiac monitoring, continue BiPAP, repeat CBC and BMP tomorrow morning, bronchodilators, hemodialysis today, PT OT evaluation and treatment. #2 recurrent syncopal episodes/encephalopathy/transient hypotension: Patient has been having recurrent syncopal episodes after dialysis. Blood pressure improved after IV fluid bolus. When I interviewed the patient, he was fully alert and oriented. Blood pressure improved. Afebrile, heart rate stable. CT scan brain showed no acute infarct or hemorrhage, mastoiditis and otitis media noted. EKG revealed normal sinus rhythm, RBBB, PVCs and no acute changes. Troponin is 0.08, it was 0.13 on February 27. Patient denied any chest pain. 2D echocardiogram revealed ejection fraction of 65%, severely dilated right ventricle, moderately enlarged left atrium, mildly enlarged right atrium, mild aortic stenosis. He had CTA of the head and neck on February 19, 2019 that revealed severe bilateral distal common carotid artery calcific plaque contributing to 20% stenosis on the right and 60% stenosis on the left, no occlusion identified. Plan: Monitor blood pressure, avoid antihypertensives, continue midodrine, orthostatic vitals this morning. #3 acute left mastoiditis/left otitis media: This is an incidental finding on CT scan brain. Patient did complain of some left ear pain, no discharge. He has been afebrile, no leukocytosis. Plan: Start IV Unasyn, ENT consult. #4 Coumadin induced coagulopathy: Patient has been on Coumadin for paroxysmal atrial fibrillation, INR is 6. No evidence of active bleeding, hemoglobin and hematocrit are stable. Plan to hold Coumadin, vitamin K 10 mg IV x1, repeat INR tomorrow morning. #5 recent history of MRSA bacteremia with septic shock: Suspected source was the permacath. Continue IV vancomycin. #6 ESRD on hemodialysis: On dialysis on Mondays, Wednesdays and Fridays. Will consult nephrology. #7 COPD/chronic respiratory failure: On home oxygen at 3 L. At this time, on BiPAP because of acute on chronic respiratory failure. Plan for bronchodilators, hemodialysis today. #8 paroxysmal atrial fibrillation: Rate is controlled, he is not on any rate control medicine, hold Coumadin because of high INR. #9 hypertension: Blood pressure basically has been on the lower side. He is off all antihypertensive medications. Continue midodrine. #11 chronic anemia: Secondary to anemia of chronic disease, hemoglobin and hematocrit are stable. #12 diet-controlled diabetes: Blood sugar stable, plan for Accu-Cheks and sliding scale. #13 CODE STATUS: DNR CCA. Signed document from care home reviewed and CODE STATUS confirmed with the patient. #14 DVT prophylaxis: INR 6. This note was generated with [employer] dictation software. It may contain incorrect words, spelling, and punctuation that were not noted in checking the note before signing. Code Visit Inpatient E&M: 40783 Init Hosp L3
[2019-03-06] MEDS: 0.9% Saline Lock 10 ML Syringe IV ×2 (05:33→05:39)
--- NOTE | 2019-03-06 05:38 | PHA.PHARE_ITS ---
Consult Pharmacy has been consulted to manage selected antiobiotic: Vancomycin Type of Consult: New start Suspected Infection: Other Labs: Sodium 139 mmol/L (136-145) 03/06/19 01:25 Potassium 4.4 mmol/L (3.5-5.1) 03/06/19 01:25 Chloride 100 mmol/L (98-107) 03/06/19 01:25 Carbon Dioxide 33.0 mmol/L (21.0-32.0) H 03/06/19 01:25 Anion Gap 6 (5-15) 03/06/19 01:25 BUN 43 mg/dL (7-18) H 03/06/19 01:25 Creatinine 5.29 mg/dL (0.70-1.30) H 03/06/19 01:25 Est GFR (MDRD) Af Amer 14 mL/min (>60) L 03/06/19 01:25 Est GFR (MDRD) Non-Af 12 mL/min (>60) L 03/06/19 01:25 BUN/Creatinine Ratio 8.1 RATIO (10-20) L 03/06/19 01:25 Glucose 130 mg/dL (74-106) H 03/06/19 01:25 Weight used for dosin.9 kg Estimated Creatinine Clearance: 13.6 Goal Trough: 15-20 mcg/mL Pharmacy Plan for Drug Dosing: Vancomycin IV is being continued from previous admission and care home. Next dialysis due Friday03/08/19. AM random level will be drawn to determine the post-dialysis dose to be given. Pharmacy Service will continue to monitor and adjust dosing as required. Follow-Up Labs: Trough Vancomycin - random Labs to be done on [date and time ordered]: 03/08/19 @0600
--- NOTE | 2019-03-06 06:17 | NURSING ---
Pt unable to stand to complete orthos
[2019-03-06] MEDS: Ipratropium/Albuterol Sulfate 3 ML AMPUL.NEB INHALATION ×3 (07:01→20:05)
[2019-03-06 07:10] LABS: Bedside Glucose 121 mg/dL (70-110)
[2019-03-06] MEDS: Escitalopram Oxalate 10 MG Tablet PO (09:16)
[2019-03-06] MEDS: Pantoprazole Sodium 40 MG Tablet PO (09:16)
[2019-03-06] MEDS: Midodrine HCl 5 MG Tablet 10 MG PO ×2 (09:16→22:05)
[2019-03-06] MEDS: Calcium Acetate 667 MG Capsule 1334 MG PO ×2 (09:16→16:33)
[2019-03-06] MEDS: Nystatin Powder 15gm Bottle 1 APPLIC TOPICAL ×2 (09:17→22:05)
[2019-03-06] MEDS: Glucerna Shake 120 ML LIQUID PO (09:17)
[2019-03-06] MEDS: Menthol/Lanolin/Calamine/Znox 113 GM Tube 1 APPLIC TOPICAL ×2 (09:17→22:04)
[2019-03-06] MEDS: Ferrous Sulfate 325 MG Tablet PO ×2 (09:17→16:33)
--- NOTE | 2019-03-06 10:48 | CON.PCM_ITS ---
Problem List (1) Acute hypercapnic respiratory failure Status: Acute (2) ESRD (end stage renal disease) on dialysis Status: Chronic (3) Benign hypertension Status: Inactive (4) Depression Status: Chronic (5) Hyperlipidemia Status: Chronic Qualifiers: Hyperlipidemia type: pure hypercholesterolemia Qualified Code(s): E78.00 - Pure hypercholesterolemia, unspecified; E78.0 - Pure hypercholesterolemia (6) IgA nephropathy Status: Chronic (7) Chronic gout Status: Chronic (8) Diabetes mellitus, type 2 Status: Chronic Qualifiers: Diabetes mellitus mcc insulin use: with intermediate frame tender use Diabetes mellitus complication status: with kidney complications Diabetes mellitus complication detail: with chronic kidney disease Chronic kidney disease stage: on chronic dialysis Qualified Code(s): E11.22 - Type 2 diabetes mellitus with diabetic chronic kidney disease; N18.6 - End stage renal disease; Z79.4 - assisted (current) use of insulin; Z99.2 - Dependence on renal dialysis Comment: DIET CONTROLLED (9) Diastolic Dysfunction EF 60% Status: Chronic (10) KATHY on CPAP Status: Chronic 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 (11) Super obesity Status: Chronic Comment: bmi 64 (12) Chronic low back pain Status: Chronic (13) Pulmonary hypertension Status: Chronic (14) Paroxysmal atrial fibrillation Status: Chronic Reason for Consult Date of Consultation: 03/06/19 Reason for Consultation: Respiratory failure History of Present Illness: The patient is a 69 year old M, with past medical history listed below, who presented to [facility] on 03/06/2019 secondary to decreased level of responsiveness. Patient was unable to provide much history, so the majority of information is from the medical record. Patient reportedly had gone for dialysis yesterday and tolerated it well. However, was noted to be decrease in mental status at the longterm and was sent in for evaluation. In the ER, patient was given Narcan despite lack of opiate administration. The patient was then placed on BiPAP therapy. Patient reportedly had an ABG in ER, but VBG is all that is listed in the medical record. This was thought to be consistent with hypercarbic respiratory failure. Patient was placed on BiPAP therapy with improving mental status. Patient was noted to have an elevated INR, but no bleeding has been reported. CT of the head was unremarkable. Patient was not given antibiotics and was admitted to the PCU for further evaluation. On my evaluation, patient would open his eyes to voice, but was unable to answer any questions. Unable to obtain review of systems. Patient was off of BiPAP to eat but had been on it prior to that with reported improvement in mental status. Following my evaluation, patient had been placed back on BiPAP therapy. No hemodynamic instability has been reported by nursing during hospitalization. 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 COPD (chronic obstructive pulmonary disease) (Chronic) With chronic respiratory failure On 3 L nasal cannula Left kidney mass (Chronic) Super obesity (Chronic) bmi 64 Chronic low back pain (Chronic) Pulmonary hypertension (Chronic) Paroxysmal atrial fibrillation (Chronic) Anemia of chronic renal failure (Chronic) Falls frequently (Chronic) Medical History: Medical History (Last Reviewed 02/27/19 @ 02:45 by Stew Aldrich MD) ESRD (end stage renal disease) on dialysis (Chronic) N18.6, Z99.2 Benign hypertension (Inactive) I10 BPH (benign prostatic hyperplasia) (Chronic) Depression (Chronic) F32.9 Hyperlipidemia (Chronic) E78.5 IgA nephropathy (Chronic) N02.8 Chronic gout (Chronic) [id number] Diabetes mellitus, type 2 (Chronic) E11.9 DIET CONTROLLED Diastolic Dysfunction EF 60% (Chronic) COPD (chronic obstructive pulmonary disease) (Chronic) J44.9 With chronic respiratory failure On 3 L nasal cannula Left kidney mass (Chronic) N28.89 Chronic low back pain (Chronic) M54.5, G89.29 Pulmonary hypertension (Chronic) I27.2 Paroxysmal atrial fibrillation (Chronic) I48.0 Anemia of chronic renal failure (Chronic) N18.9, D63.1 Atrial fibrillation I48.91 Osteomyelitis (Inactive) M86.9 distal phalanx of the middle finger on the left hand Vertebral osteomyelitis, acute (Inactive) M46.20 12/22/14 24 hours no growth. 12/21/14 1/2 cultures w/ staph aureus. Suspected source vertebral osteomyelitis, unable to confirm as unable to obtain GOLD standard MRI secondary to habitus. Allergies mirtazapine [From Remeron] Allergy (Verified 03/06/19 01:07) forgetful, doesn't remember anything Sulfa (Sulfonamide Antibiotics) Allergy (Verified 03/06/19 01:07) bleeding from kidneys aspirin Adverse Reaction (Verified 03/06/19 01:07) Nausea oxycodone HCl [From Percodan] Adverse Reaction (Verified 03/06/19 01:07) Nausea oxycodone terephthalate [From Percodan] Adverse Reaction (Verified 03/06/19 01:07) Nausea Home Medications: Ambulatory Orders Medication Instructions Recorded Calcium Acetate [Phoslo Gel Cap] 1,334 mg PO BID 11/08/16 ferrous sulfate 325 mg (65 mg 325 mg PO BID tab 05/12/18 iron) tablet,delayed release umeclidinium 62.5 mcg/actuation 1 inh INHALATION LUNCH 05/12/18 blister powder for inhalation B Complex W-C No.20/Folic Acid 1 mg PO DAILY@1200 08/18/18 [Virt-Caps Softgel] Docusate Sodium [Colace] 200 mg PO BID 08/18/18 Escitalopram Oxalate [Lexapro] 10 mg PO DAILY 08/18/18 Fluticasone/Vilanterol [Breo 1 ea IH DAILY 08/18/18 Ellipta 100-25 Mcg INH] Pantoprazole Sodium [Protonix] 40 mg PO DAILY 08/18/18 Midodrine HCl 10 mg PO BID #60 tab 01/08/19 Acetaminophen [Tylenol] 650 mg PO Q4H PRN PRN 02/18/19 Ascorbic Acid 500 mg PO DAILY 02/18/19 Ipratropium/Albuterol Sulfate 3 ml INHALATION Q6H.RT 02/18/19 [Duoneb] Multivit,Tx with Iron,Minerals 1 tab PO DAILY 02/18/19 [Thera-M] Ondansetron HCl 8 mg PO BID PRN PRN 02/18/19 Vancomycin IV Pharmacy to Dose 1,500 ea IV UD 38 Days #15 ea 02/25/19 Gabapentin [Neurontin] 300 mg PO BID 5 Days #10 cap 03/02/19 Nystatin Powder [Mycostatin Powder] 1 applic TOPICAL TID bottle 03/02/19 Warfarin [Coumadin] 4 mg PO DAILY #1 tab 03/02/19 Argin/Glut/Cahmb/Collag/Mv-Min 1 pack PO BID 03/06/19 [Vimal Packet] Surgical History: Surgical History (Last Reviewed 02/27/19 @ 02:45 by Stew Aldrich MD) History of arteriovenostomy for renal dialysis Z99.2 History of cholecystectomy Z90.49 History of colonoscopy Z98.890 History of total bilateral knee replacement Z96.653 Status post biopsy of kidney Z98.890 Surgical History: colectomy, total knee arthroplasty, - Psychiatric History: No pertinent psych hx Lives: Care Home Smoking Status: Never smoker Alcohol: None Drugs: None - *Family History Maternal History Items: COPD, Diabetes, Heart Disease, Hypertension - He, Renal Disease Paternal History Items: No pertinent history Review of Systems Unable to obtain accurate/complete ROS d/t: Mental status Patient Problems: Active and Suspected Problems (Last Reviewed 02/27/19 @ 02:45 by Stew Aldrich MD) Acute hypercapnic respiratory failure (Acute) Transient hypotension (Acute) Objective: Chest x-ray was personally reviewed and appears grossly unchanged compared to previous. - Physical Exam Vitals/I&O's: Vital Signs Temp Pulse Resp BP Pulse Ox 36.5 C L 90 16 106/39 L 94 03/06/19 09:15 03/06/19 09:15 03/06/19 09:15 03/06/19 09:15 03/06/19 09:15 Oxygen Flow Rate (L/min) 2 Oxygen Delivery Method Bi-pap Weight: 136.9 kg Body Mass Index (BMI) 48.6 Finger Stick Blood Glucose 155 Orthostatic Vital Signs Start: 03/06/19 06:13 Freq: q24h Status: Active Protocol: Activity Type Activity Date Activity User E-Sign Co-Sign Detail Recorded Client Recorded Date Recorded By Document 03/06/19 06:13 DEE [id number] 03/06/19 06:17 DEE 03/06/19 06:13 Orthostatic Vitals Sitting -Blood Pressure (90/60-120/80) 105/30 L -Extremity Use Right Arm -Pulse Rate (60-100) 88 Lying -Blood Pressure (90/60-120/80) 95/23 L -Extremity Use Right Arm -Pulse Rate (60-100) 84 Intake and Output for Last 24 Hours 03/04/19 03/05/19 03/06/19 23:59 23:59 23:59 Intake Total 663 / 663 Balance 663 / 663 General: Confused, Disoriented, Lethargic, Non-Cooperative, - - Morbidly obese. HEENT: Atraumatic, PERRLA, EOMI, Normocephalic, - - Slight scleral injection without icterus Oral: Moist Mucosa, No Gingival or Mucosal Lesions/ Ulcerations, - - Crowded posterior pharynx Neck: Supple, No Nodes, Trachea Midline, - - Unable to assess JVD secondary to body habitus Lungs: No rhonchi, No wheeze, No rales, Diminished, - - Poor air exchange. Cardiovascular: Regular rate, Regular Rhythm, Normal S1, Normal S2, No murmurs, No rub noted, No Gallop, - - Distant heart sounds secondary to body habitus Abdomen: Bowel Sounds Present, Soft, Non Tender, Non-Distended, Obese Extremities: No clubbing, No cyanosis, Edema, - - Multiple amputations noted. Skin: - - Venous stasis changes of the lower extremities. No open wounds appreciated. Musculoskeletal: No Tenderness to Palpation of Joints or Extremities Lymphatic: No Cervical, Supraclavicular, or Inguinal Adenopathy Neurological: - - Spontaneous movement of all extremities. Sensation intact. Not cooperative with evaluation for dysarthria Psych/Mental Status: Flat Affect Laboratory Results 03/06/19 01:17: POC Glucose 155 H 03/06/19 01:25: WBC 5.9, RBC 4.23 L, Hgb 12.5 L, Hct 43.5, MCV 102.8 H, MCH 29.6, MCHC 28.7 L, RDW Std Deviation 65.4 H, RDW Coeff of Dixie 17.6 H, Plt Count 134 L, MPV 11.3, Immature Gran % (Auto) 0.300, Neut % (Auto) 66.2, Lymph % (Auto) 16.5 L, Tyrrell % (Auto) 12.8 H, Eos % (Auto) 3.5, Baso % (Auto) 0.7, Absolute Neuts (auto) 3.9, Absolute Lymphs (auto) 0.98, Nucleated RBC % 0, Platelet Estimate SLT DEC, Hypochromasia 1+, Anisocytosis 1+, Macrocytosis 1+ 03/06/19 01:25: PT 54.6 H, INR 6.0 H*, APTT 74.5 H 03/06/19 01:25: Sodium 139, Potassium 4.4, Chloride 100, Carbon Dioxide 33.0 H, Anion Gap 6, BUN 43 H, Creatinine 5.29 H, Estim Creat Clear Calc 13.61, Est GFR (MDRD) Af Amer 14 L, Est GFR (MDRD) Non-Af 12 L, BUN/Creatinine Ratio 8.1 L, Glucose 130 H, Calcium 9.2, Total Bilirubin 0.50, AST 23, ALT 14 L, Alkaline Phosphatase 158 H, Troponin I 0.080 H, Total Protein 8.0, Albumin 2.7 L, Globulin 5.3 H, Albumin/Globulin Ratio 0.5 L 03/06/19 01:25: Lactic Acid 1.2 03/06/19 02:16: Specimen Type KIMBERLY, Sample Site OTHER, VBG pH 7.19 L*, VBG pO2 43 H, VBG O2 Sat (Calc) 64, VBG O2 Content 37 H, VBG Base Excess 6 H, POC Mix VBG pCO2 Pt Tmp 91.3 H*, O2 Delivery Device Nasal Can, Liter Flow 4.0, Blood Gas Notified Whom ED 03/06/19 07:04: POC Glucose 121 H Current Medications Acetaminophen (Tylenol) 650 mg PO Q6H PRN PRN PRN Reason: Pain Score 1-10/Temp > 100.7 F Albuterol Sulfate (Ventolin Aerosols) 2.5 mg INHALATION Q2H PRN PRN PRN Reason: Shortness of breath, wheezing Albuterol/Ipratropium (Duoneb) 3 ml INHALATION Q6H.RT [facility] Last Admin: 03/06/19 07:01 Dose: 3 ml Documented by: Calamine/Phenol (Calmoseptine Ointment) 1 applic TOPICAL BID [facility]; Protocol Last Admin: 03/06/19 09:17 Dose: 1 applicatio Documented by: Calcium Acetate (Phoslo Gel Cap) [facility] Last Admin: 03/06/19 09:16 Dose: 1,334 mg Documented by: Docusate Sodium (Colace) 200 mg PO BID [facility] Last Admin: 03/06/19 09:17 Dose: Not Given Documented by: Escitalopram Oxalate (Lexapro) 10 mg PO DAILY [facility] Last Admin: 03/06/19 09:16 Dose: 10 mg Documented by: Ferrous Sulfate (Ferrous Sulfate) 325 mg PO BIDCM [facility] Last Admin: 03/06/19 09:17 Dose: 325 mg Documented by: Ampicillin Sodium/Sulbactam (Sodium 3 gm/ Sodium Chloride) 112 mls @ 150 mls/hr IV Q24@2200 [facility] Last Infusion: 03/06/19 07:06 Dose: Infused Documented by: Sodium Chloride () 250 mls @ 15 mls/hr IV .[id number] PRN PRN Reason: Saline Flush Sodium Chloride () 250 mls @ 15 mls/hr IV .[id number] PRN PRN Reason: Additional IVPB Infusion Insulin Human Lispro (Humalog Kwikpen (Bkc)) 0 unit SC ACHS [facility]; Protocol Last Admin: 03/06/19 07:05 Dose: Not Given Documented by: Midodrine (Proamatine) 10 mg PO BID [facility] Last Admin: 03/06/19 09:16 Dose: 10 mg Documented by: Nystatin (Mycostatin Powder) 1 applic TOPICAL BID [facility]; Protocol Last Admin: 03/06/19 09:17 Dose: 1 applicatio Documented by: Ondansetron HCl (Zofran) 4 mg IV Q8H PRN PRN PRN Reason: NAUSEA/VOMITING Pantoprazole Sodium (Protonix) 40 mg PO DAILY [facility] Last Admin: 03/06/19 09:16 Dose: 40 mg Documented by: Sodium Chloride () 10 - 40 ml IV UD PRN PRN Reason: SALINE FLUSH Last Admin: 03/06/19 05:39 Dose: 10 ml Documented by: Clinical Impression(s) from Imaging Studies Brain CT 03/06/19 01:26 IMPRESSION: No acute intracranial abnormality. Worsening left mastoid air cell disease consistent with mastoiditis. Increasing left middle ear disease consistent with otitis media. Chronic changes as above. ASPECT 10. Individualized dose optimization techniques were used for this CT. at 0255 Reported and signed by: Ashok Mead MD Electronically Signed: Ashok Mead MD at 2:54 EST Tel , Service support , Chest X-Ray 03/06/19 01:30 IMPRESSION: Congestive heart failure. Electronically Signed: Tomasa Tyler, at 3:25 EST Tel , Service support , Assessment/Plan All Active Problems (Last Reviewed 02/27/19 @ 02:45 by Stew Aldrich MD) Acute hypercapnic respiratory failure (Acute) Transient hypotension (Acute) RECOMMENDATIONS: 1. Continue BiPAP and feed only if mental status improving 2. Obtain VBG after 2 hours of BiPAP 3. Consider transition to IV vancomycin around hemodialysis 4. Consult nephrology for dialysis 5. Continue midodrine IMPRESSIONS: 1. Acute on chronic hypercarbic respiratory failure Unclear etiology at this time. Patient does have a history of noncompliance with noninvasive therapy and may have had gradual CO2 retention. Body habitus makes chest x-ray less reliable. Patient may have an element of overload, but did receive a full hemodialysis yesterday. We will continue with BiPAP therapy for now and repeat VBG in the future. Would avoid any sedentary or opiate medications if possible. Patient does not have fever or leukocytosis to suggest ongoing infection. Patient does receive vancomycin secondary to previous MRSA bacteremia that was supposed to be continued through April 03, 2019 per last ID note. 2. Recent MRSA bacteremia No PJ was obtained secondary to risk profile. Patient reportedly is to have vancomycin around dialysis until April 03, 2019. Will defer to hospitalist, but this can likely be reordered. Patient is not going to receive hemodialysis until Friday per nursing report. 3. Metabolic encephalopathy secondary to #1 Patient has had previous presentations with similar metabolic encephalopathy associated with acute medical conditions. Clinical suspicion for CO2 retention as the etiology. We will continue with BiPAP and monitor patient clinically. 4. Coagulopathy secondary to Coumadin secondary to A. fib No interventions are planned at this time. Patient should have Coumadin held. Will avoid active reversal unless patient has complications. 5. End-stage renal disease on hemodialysis Patient is followed by [facility]. Nursing is reporting that patient had a full hemodialysis session yesterday and there are no indications for acute hemodialysis at this time. Anticipate repeat hemodialysis on Friday. 6. Uncontrolled diabetes mellitus Patient likely to have a high endogenous steroid release given patient's current status. Will cover with sliding scale insulin only. Would not recommend feeding the patient unless his mental status improves. 7. Morbid obesity/peripheral artery disease/COPD/chronic diastolic CHF/history of osteomyelitis/secondary pulmonary hypertension Complicates care, management, recovery and prognosis. Patient can stay on aerosolized therapies for now. Okay to continue with other baseline medications. Do not believe patient requires aggressive diuresis at this time. Code Visit Inpatient E&M: [id number] Init Hosp L3
[2019-03-06] MEDS: Insulin Lispro 100 UNIT/ML INSULN.PEN SC (10:58)
[2019-03-06 11:10] LABS: Bedside Glucose 173 mg/dL (70-110)
[2019-03-06 12:16] LABS: Base Excess 5 mmol/L (-2 to +2); Bicarbonate 31.6 mmol/L (22-26); Blood Gas Specimen Type ART; EPAP 10; FI02 35; IPAP 20; PO2 78 mmHG (75-100); RR 12; SITE R Brachial; SO2 93 % (95-99); Time Given 1207; Total Carbon Dioxide 34 mmol/L; pCO2 68.1 mmHg (35-45); pH 7.27 (7.35-7.45)
--- NOTE | 2019-03-06 12:21 | CPS ---
ABG result viewed in [facility]. Dr Gregory stated he did not need notified as long as ABG results showed improvement from previous gas. PH went from 7.186 to 7.274.
--- NOTE | 2019-03-06 16:09 | PCM.CONS.GEN ---
Reason for Consult Date of Consultation: 03/06/19 Reason for Consultation: esrd History of Present Illness: The patient is a 69 year old M past medical history as below who presented with a chief complaint of altered mental status. The patient is a very poor historian and cannot provide review of systems. As per nursing staff he was brought to the emergency room because he was found unresponsive at the dialysis center where he got dialysis yesterday. He was found to be hypotensive with a blood pressure 74/38. The patient is confused but he denies shortness of breath abdominal pain nausea vomiting diarrhea or any other complaints at this time. As per nursing staff he completed his dialysis treatment in the outpatient dialysis yesterday. 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 COPD (chronic obstructive pulmonary disease) (Chronic) With chronic respiratory failure On 3 L nasal cannula Left kidney mass (Chronic) Super obesity (Chronic) bmi 64 Chronic low back pain (Chronic) Pulmonary hypertension (Chronic) Paroxysmal atrial fibrillation (Chronic) Anemia of chronic renal failure (Chronic) Falls frequently (Chronic) Medical History: Medical History (Last Reviewed 02/27/19 @ 02:45 by Stew Aldrich MD) ESRD (end stage renal disease) on dialysis (Chronic) N18.6, Z99.2 Benign hypertension (Inactive) I10 BPH (benign prostatic hyperplasia) (Chronic) Depression (Chronic) F32.9 Hyperlipidemia (Chronic) E78.5 IgA nephropathy (Chronic) N02.8 Chronic gout (Chronic) [id number] Diabetes mellitus, type 2 (Chronic) E11.9 DIET CONTROLLED Diastolic Dysfunction EF 60% (Chronic) COPD (chronic obstructive pulmonary disease) (Chronic) J44.9 With chronic respiratory failure On 3 L nasal cannula Left kidney mass (Chronic) N28.89 Chronic low back pain (Chronic) M54.5, G89.29 Pulmonary hypertension (Chronic) I27.2 Paroxysmal atrial fibrillation (Chronic) I48.0 Anemia of chronic renal failure (Chronic) N18.9, D63.1 Atrial fibrillation I48.91 Osteomyelitis (Inactive) M86.9 distal phalanx of the middle finger on the left hand Vertebral osteomyelitis, acute (Inactive) M46.20 12/22/14 24 hours no growth. 12/21/14 1/2 cultures w/ staph aureus. Suspected source vertebral osteomyelitis, unable to confirm as unable to obtain GOLD standard MRI secondary to habitus. Allergies mirtazapine [From Remeron] Allergy (Verified 03/06/19 01:07) forgetful, doesn't remember anything Sulfa (Sulfonamide Antibiotics) Allergy (Verified 03/06/19 01:07) bleeding from kidneys aspirin Adverse Reaction (Verified 03/06/19 01:07) Nausea oxycodone HCl [From Percodan] Adverse Reaction (Verified 03/06/19 01:07) Nausea oxycodone terephthalate [From Percodan] Adverse Reaction (Verified 03/06/19 01:07) Nausea Home Medications: Ambulatory Orders Medication Instructions Recorded Calcium Acetate [Phoslo Gel Cap] 1,334 mg PO BID 11/08/16 ferrous sulfate 325 mg (65 mg 325 mg PO BID tab 05/12/18 iron) tablet,delayed release umeclidinium 62.5 mcg/actuation 1 inh INHALATION LUNCH 05/12/18 blister powder for inhalation B Complex W-C No.20/Folic Acid 1 mg PO DAILY@1200 08/18/18 [Virt-Caps Softgel] Docusate Sodium [Colace] 200 mg PO BID 08/18/18 Escitalopram Oxalate [Lexapro] 10 mg PO DAILY 08/18/18 Fluticasone/Vilanterol [Breo 1 ea IH DAILY 08/18/18 Ellipta 100-25 Mcg INH] Pantoprazole Sodium [Protonix] 40 mg PO DAILY 08/18/18 Midodrine HCl 10 mg PO BID #60 tab 01/08/19 Acetaminophen [Tylenol] 650 mg PO Q4H PRN PRN 02/18/19 Ascorbic Acid 500 mg PO DAILY 02/18/19 Ipratropium/Albuterol Sulfate 3 ml INHALATION Q6H.RT 02/18/19 [Duoneb] Multivit,Tx with Iron,Minerals 1 tab PO DAILY 02/18/19 [Thera-M] Ondansetron HCl 8 mg PO BID PRN PRN 02/18/19 Vancomycin IV Pharmacy to Dose 1,500 ea IV UD 38 Days #15 ea 02/25/19 Gabapentin [Neurontin] 300 mg PO BID 5 Days #10 cap 03/02/19 Nystatin Powder [Mycostatin Powder] 1 applic TOPICAL TID bottle 03/02/19 Warfarin [Coumadin] 4 mg PO DAILY #1 tab 03/02/19 Argin/Glut/Cahmb/Collag/Mv-Min 1 pack PO BID 03/06/19 [Vimal Packet] Surgical History: Surgical History (Last Reviewed 02/27/19 @ 02:45 by Stew Aldrich MD) History of arteriovenostomy for renal dialysis Z99.2 History of cholecystectomy Z90.49 History of colonoscopy Z98.890 History of total bilateral knee replacement Z96.653 Status post biopsy of kidney Z98.890 Surgical History: colectomy, total knee arthroplasty, - Psychiatric History: No pertinent psych hx Lives: Senior Living Smoking Status: Never smoker Alcohol: None Drugs: None - *Family History Maternal History Items: COPD, Diabetes, Heart Disease, Hypertension - He, Renal Disease Paternal History Items: No pertinent history Review of Systems Eyes: Reports: - - The patient is confused and cannot provide review of systems. Patient Problems: Active and Suspected Problems (Last Reviewed 02/27/19 @ 02:45 by Stew Aldrich MD) Acute hypercapnic respiratory failure (Acute) Transient hypotension (Acute) - Physical Exam Vitals/I&O's: Vital Signs Temp Pulse Resp BP Pulse Ox 98.2 F 80 20 H 107/61 96 03/06/19 15:15 03/06/19 15:15 03/06/19 15:15 03/06/19 15:15 03/06/19 15:15 Oxygen Flow Rate (L/min) 2 Oxygen Delivery Method Bi-pap Weight: 136.9 kg Body Mass Index (BMI) 48.6 Finger Stick Blood Glucose 155 Orthostatic Vital Signs Start: 03/06/19 06:13 Freq: q24h Status: Active Protocol: Activity Type Activity Date Activity User E-Sign Co-Sign Detail Recorded Client Recorded Date Recorded By Document 03/06/19 06:13 DEE [id number] 03/06/19 06:17 DEE 03/06/19 06:13 Orthostatic Vitals Sitting -Blood Pressure (90/60-120/80) 105/30 L -Extremity Use Right Arm -Pulse Rate (60-100) 88 Lying -Blood Pressure (90/60-120/80) 95/23 L -Extremity Use Right Arm -Pulse Rate (60-100) 84 Intake and Output for Last 24 Hours 03/04/19 03/05/19 03/06/19 23:59 23:59 23:59 Intake Total 1063 / 1063 Balance 1063 / 1063 General: Alert HEENT: Atraumatic, Normocephalic Lungs: Clear to auscultation, Normal air movement Cardiovascular: Regular rate, Regular Rhythm, Normal S1, Normal S2 Abdomen: Bowel Sounds Present, Soft, Non Tender, - - obese Extremities: No edema Skin: No rashes Laboratory Results 03/06/19 01:17: POC Glucose 155 H 03/06/19 01:25: WBC 5.9, RBC 4.23 L, Hgb 12.5 L, Hct 43.5, MCV 102.8 H, MCH 29.6, MCHC 28.7 L, RDW Std Deviation 65.4 H, RDW Coeff of Dixie 17.6 H, Plt Count 134 L, MPV 11.3, Immature Gran % (Auto) 0.300, Neut % (Auto) 66.2, Lymph % (Auto) 16.5 L, Ware % (Auto) 12.8 H, Eos % (Auto) 3.5, Baso % (Auto) 0.7, Absolute Neuts (auto) 3.9, Absolute Lymphs (auto) 0.98, Nucleated RBC % 0, Platelet Estimate SLT DEC, Hypochromasia 1+, Anisocytosis 1+, Macrocytosis 1+ 03/06/19 01:25: PT 54.6 H, INR 6.0 H*, APTT 74.5 H 03/06/19 01:25: Sodium 139, Potassium 4.4, Chloride 100, Carbon Dioxide 33.0 H, Anion Gap 6, BUN 43 H, Creatinine 5.29 H, Estim Creat Clear Calc 13.61, Est GFR (MDRD) Af Amer 14 L, Est GFR (MDRD) Non-Af 12 L, BUN/Creatinine Ratio 8.1 L, Glucose 130 H, Calcium 9.2, Total Bilirubin 0.50, AST 23, ALT 14 L, Alkaline Phosphatase 158 H, Troponin I 0.080 H, Total Protein 8.0, Albumin 2.7 L, Globulin 5.3 H, Albumin/Globulin Ratio 0.5 L 03/06/19 01:25: Lactic Acid 1.2 03/06/19 02:16: Specimen Type KIMBERLY, Sample Site OTHER, VBG pH 7.19 L*, VBG pO2 43 H, VBG O2 Sat (Calc) 64, VBG O2 Content 37 H, VBG Base Excess 6 H, POC Mix VBG pCO2 Pt Tmp 91.3 H*, O2 Delivery Device Nasal Can, Liter Flow 4.0, Blood Gas Notified Whom ED 03/06/19 07:04: POC Glucose 121 H 03/06/19 10:56: POC Glucose 173 H 03/06/19 12:09: Specimen Type ART, Sample Site R Brachial, pH 7.27 L, Bicarbonate Actual 31.6 H, POC Total CO2 34, Base Excess 5 H, O2 Saturation 93 L, O2 % 35, ABG pCO2 68.1 H*, ABG pO2 78, Hermilo Test NA, Respiration Rate 12, O2 Delivery Device Bi / C PAP, EPAP 10, IPAP 20, Blood Gas Notified Whom OTHER, Blood Gas Notified Time 1207 Current Medications Acetaminophen (Tylenol) 650 mg PO Q6H PRN PRN PRN Reason: Pain Score 1-10/Temp > 100.7 F Albuterol Sulfate (Ventolin Aerosols) 2.5 mg INHALATION Q2H PRN PRN PRN Reason: Shortness of breath, wheezing Albuterol/Ipratropium (Duoneb) 3 ml INHALATION Q6H.RT [facility] Last Admin: 03/06/19 13:02 Dose: 3 ml Documented by: Calamine/Phenol (Calmoseptine Ointment) 1 applic TOPICAL BID [facility]; Protocol Last Admin: 03/06/19 09:17 Dose: 1 applicatio Documented by: [facility] ([facility]) [facility] Last Admin: 03/06/19 09:16 Dose: 1,334 mg Documented by: Docusate Sodium (Colace) 200 mg PO BID [facility] Last Admin: 03/06/19 09:17 Dose: Not Given Documented by: Escitalopram Oxalate (Lexapro) 10 mg PO DAILY [facility] Last Admin: 12/28/19 09:16 Dose: 10 mg Documented by: Ferrous Sulfate (Ferrous Sulfate) 325 mg PO BIDCM [facility] Last Admin: 03/06/19 09:17 Dose: 325 mg Documented by: Ampicillin Sodium/Sulbactam (Sodium 3 gm/ Sodium Chloride) 112 mls @ 150 mls/hr IV Q24@2200 [facility] Last Infusion: 03/06/19 07:06 Dose: Infused Documented by: Sodium Chloride () 250 mls @ 15 mls/hr IV .[id number] PRN PRN Reason: Saline Flush Sodium Chloride () 250 mls @ 15 mls/hr IV .[id number] PRN PRN Reason: Additional IVPB Infusion Insulin Human Lispro (Humalog Kwikpen (Bkc)) [facility]; Protocol Last Admin: 03/06/19 10:58 Dose: 1 units Documented by: Midodrine (Proamatine) 10 mg PO BID [facility] Last Admin: 03/06/19 09:16 Dose: 10 mg Documented by: Nystatin (Mycostatin Powder) 1 applic TOPICAL BID [facility]; Protocol Last Admin: 03/06/19 09:17 Dose: 1 applicatio Documented by: Ondansetron HCl (Zofran) 4 mg IV Q8H PRN PRN PRN Reason: NAUSEA/VOMITING Pantoprazole Sodium (Protonix) 40 mg PO DAILY [facility] Last Admin: 03/06/19 09:16 Dose: 40 mg Documented by: Sodium Chloride () 10 - 40 ml IV UD PRN PRN Reason: SALINE FLUSH Last Admin: 03/06/19 05:39 Dose: 10 ml Documented by: Assessment/Plan All Active Problems (Last Reviewed 02/27/19 @ 02:45 by Stew Aldrich MD) Acute hypercapnic respiratory failure (Acute) Transient hypotension (Acute) ESRD CKD MBD Anemia of chronic disease Chronic hypertension Acute on chronic hypercapnic respiratory failure Altered mental status Continue Friday dialysis Continue binders Continue midodrine for blood pressure support Lovenox 12.5 we will hold Epogen for now Thank you very much for allowing me to participate in the care of this patient. Please do not hesitate to call if you have any questions or concerns.
--- NOTE | 2019-03-06 16:14 | CCHN_ITS ---
Hospitalist Note Patient was seen and examined today, he remains lethargic and somnolent, I had pulmonary medicine see the patient today, it appears that he may be taking his BiPAP off at the long term and then the patient becomes hypercapnic. Patient's repeat blood gas this morning was improved, INR will be rechecked tomorrow, patient remains stable at this time.
[2019-03-06] MEDS: Nepro with Carbsteady 237 ML Liquid 120 ML PO (16:33)
[2019-03-06 16:46] LABS: Bedside Glucose 100 mg/dL (70-110)
[2019-03-06] MEDS: Docusate Sodium 100 MG Capsule 200 MG PO (22:05)
[2019-03-06 22:06] LABS: Bedside Glucose 127 mg/dL (70-110)
[2019-03-07] VITALS (19 sets, daily range): BP systolic 92–139; BP diastolic 35–92; PULSE 69–89; RESP 12–26; TEMP 36.4–36.9; O2SAT 91–98
[2019-03-07 06:24] LABS: International Normalized Ratio 1.6
[2019-03-07] MEDS: Ipratropium/Albuterol Sulfate 3 ML AMPUL.NEB INHALATION ×3 (06:57→19:48)
[2019-03-07 07:00] LABS: Bedside Glucose 103 mg/dL (70-110)
[2019-03-07 08:17] LABS: Anion Gap 7 (5-15); BUN 55 mg/dL (7-18); BUN/Creat Ratio 7.9 RATIO (10-20); Calcium,Total 8.9 mg/dL (8.5-10.1); Chloride 99 mmol/L (98-107); Creatinine, Serum 6.93 mg/dL (0.70-1.30); EST Glomerular Filtration Rate 8 mL/min (>60); Est Glom Filt Rate - Afr Amer 10 mL/min (>60); Estimated Creatinine Clearance 9.08 ml/min; Glucose 95 mg/dL (74-106); Potassium 4.1 mmol/L (3.5-5.1); Sodium Level 136 mmol/L (136-145)
--- NOTE | 2019-03-07 08:22 | CPS ---
Pt swati Bipap well. Spoke with pt's nurse about giving pt a break from Bipap post breakfast as long as he was doing well post eating.
[2019-03-07] MEDS: Ferrous Sulfate 325 MG Tablet PO ×2 (08:27→11:52)
[2019-03-07] MEDS: Menthol/Lanolin/Calamine/Znox 113 GM Tube 1 APPLIC TOPICAL ×2 (08:28→21:15)
[2019-03-07] MEDS: Calcium Acetate 667 MG Capsule 1334 MG PO ×2 (08:28→16:56)
[2019-03-07] MEDS: Nystatin Powder 15gm Bottle 1 APPLIC TOPICAL ×2 (08:28→21:14)
--- NOTE | 2019-03-07 08:34 | PN_ITS ---
Patient Problems: Active and Suspected Problems (Last Reviewed 02/27/19 @ 02:45 by Stew Aldrich MD) Acute hypercapnic respiratory failure (Acute) Transient hypotension (Acute) Subjective: Patient remained hemodynamically stable overnight. Patient has been on BiPAP most of the time, but mental status is back to baseline. Patient was able to tell me that he does not always use his BiPAP while at the detention today. Patient is denying any palpitations, cough, fever or chills. - Physical Exam Vitals/I&O's: Vital Signs Temp Pulse Resp BP Pulse Ox 36.9 C 89 16 139/92 H 91 03/07/19 03:40 03/07/19 08:00 03/07/19 08:00 03/07/19 03:40 03/07/19 08:00 Oxygen Flow Rate (L/min) 2 Oxygen Delivery Method Bi-pap Weight: 140.2 kg Body Mass Index (BMI) 48.6 Finger Stick Blood Glucose 155 Orthostatic Vital Signs Start: 03/06/19 06:13 Freq: q24h Status: Active Protocol: Activity Type Activity Date Activity User E-Sign Co-Sign Detail Recorded Client Recorded Date Recorded By Document 03/07/19 03:40 [facility] [id number] 03/07/19 04:23 NASEEM 03/07/19 03:40 Orthostatic Vitals Sitting -Blood Pressure (90/60-120/80) 98/35 L -Extremity Use Right Arm -Pulse Rate (60-100) 85 Lying -Blood Pressure (90/60-120/80) 139/92 H -Extremity Use Right Arm -Pulse Rate (60-100) 83 Intake and Output for Last 24 Hours 03/05/19 03/06/19 03/07/19 23:59 23:59 23:59 Intake Total 1625 / 1625 Balance 1625 / 1625 General: Alert, Oriented x3, Cooperative, No apparent distress, Well developed, Well nourished, - - Morbidly obese. Good BiPAP synchrony. Able to vocalize over the BiPAP. HEENT: Atraumatic, PERRLA, EOMI, Normocephalic, - - No scleral icterus or injection Oral: Moist Mucosa, No Gingival or Mucosal Lesions/ Ulcerations Neck: Supple, No JVD, No Nodes, Trachea Midline Lungs: No rhonchi, No wheeze, No rales, Diminished, - - Symmetric expansion. No dullness to percussion. Cardiovascular: Normal S1, Normal S2, No murmurs, Irregular Rate, No rub noted, No Gallop Abdomen: Bowel Sounds Present, Soft, Non Tender, Non-Distended, Obese Extremities: No cyanosis, Capillary Refill Less than 3 Seconds, Edema, - - Multiple amputations noted Skin: No rashes, No breakdown Musculoskeletal: No Tenderness to Palpation of Joints or Extremities Lymphatic: No Cervical, Supraclavicular, or Inguinal Adenopathy Neurological: Cranial nerves II-XII grossly intact, Neuro grossly intact, Motor Exam 5/5 strength throughout Psych/Mental Status: Alert and oriented to time, place, person, mood and affect Laboratory Results 03/06/19 10:56: POC Glucose 173 H 03/06/19 12:09: Specimen Type ART, Sample Site R Brachial, pH 7.27 L, Bicarbonate Actual 31.6 H, POC Total CO2 34, Base Excess 5 H, O2 Saturation 93 L , O2 % 35, ABG pCO2 68.1 H*, ABG pO2 78, Hermilo Test NA, Respiration Rate 12, O2 Delivery Device Bi / C PAP, EPAP 10, IPAP 20, Blood Gas Notified Whom OTHER, Blood Gas Notified Time 1207 03/06/19 16:31: POC Glucose 100 03/06/19 21:56: POC Glucose 127 H 03/07/19 04:52: PT 19.0 H, INR 1.6 03/07/19 06:48: POC Glucose 103 03/07/19 07:19: Sodium 136, Potassium 4.1, Chloride 99, Carbon Dioxide 30.0, Anion Gap 7, BUN 55 H, Creatinine 6.93 H, Estim Creat Clear Calc 9.08, Est GFR (MDRD) Af Amer 10 L, Est GFR (MDRD) Non-Af 8 L, BUN/Creatinine Ratio 7.9 L, Glucose 95, Calcium 8.9 Current Medications Acetaminophen (Tylenol) 650 mg PO Q6H PRN PRN PRN Reason: Pain Score 1-10/Temp > 100.7 F Albuterol Sulfate (Ventolin Aerosols) 2.5 mg INHALATION Q2H PRN PRN PRN Reason: Shortness of breath, wheezing Albuterol/Ipratropium (Duoneb) 3 ml INHALATION Q6H.RT [facility] Last Admin: 03/07/19 06:57 Dose: 3 ml Documented by: Calamine/Phenol (Calmoseptine Ointment) 1 applic TOPICAL BID [facility]; Protocol Last Admin: 03/07/19 08:28 Dose: 1 applicatio Documented by: [facility] ([facility] Last Admin: 03/07/19 08:28 Dose: 1,334 mg Documented by: Docusate Sodium (Colace) 200 mg PO BID [facility] Last Admin: 03/07/19 08:28 Dose: Not Given Documented by: Escitalopram Oxalate (Lexapro) 10 mg PO DAILY [facility] Last Admin: 03/06/19 09:16 Dose: 10 mg Documented by: Ferrous Sulfate ([facility]ous Sulfate) [facility] Last Admin: 03/07/19 08:27 Dose: 325 mg Documented by: Ampicillin Sodium/Sulbactam (Sodium 3 gm/ Sodium Chloride) 112 mls @ 150 mls/hr IV Q24@2200 [facility] Last Infusion: 03/06/19 23:17 Dose: Infused Documented by: Sodium Chloride () 250 mls @ 15 mls/hr IV .[id number] PRN PRN Reason: Saline Flush Sodium Chloride () 250 mls @ 15 mls/hr IV .[id number] PRN PRN Reason: Additional IVPB Infusion Insulin Human Lispro (Humalog Kwikpen (Bkc)) 0 unit SC ACHS [facility]; Protocol Last Admin: 03/07/19 06:48 Dose: Not Given Documented by: Midodrine (Proamatine) 10 mg PO BID [facility] Last Admin: 03/06/19 22:05 Dose: 10 mg Documented by: Nystatin (Mycostatin Powder) 1 applic TOPICAL BID [facility]; Protocol Last Admin: 03/07/19 08:28 Dose: 1 applicatio Documented by: Ondansetron HCl (Zofran) 4 mg IV Q8H PRN PRN PRN Reason: NAUSEA/VOMITING Pantoprazole Sodium (Protonix) 40 mg PO DAILY [facility] Last Admin: 03/06/19 09:16 Dose: 40 mg Documented by: Sodium Chloride () 10 - 40 ml IV UD PRN PRN Reason: SALINE FLUSH Last Admin: 03/06/19 05:39 Dose: 10 ml Documented by: Medical Necessity - Tobacco Use Smoking Status: Never smoker Assessment/Plan All Active Problems (Last Reviewed 02/27/19 @ 02:45 by Stew Aldrich MD) Acute hypercapnic respiratory failure (Acute) Transient hypotension (Acute) RECOMMENDATIONS: 1. BiPAP breaks during the day. Continue BiPAP with sleep 2. Transition back to IV vancomycin around hemodialysis per infectious disease recommendations 3. Keep saturations between 88 and 92% to avoid CO2 retention 4. Consult nephrology for dialysis 5. Continue midodrine IMPRESSIONS: 1. Acute on chronic hypercarbic respiratory failure Unclear etiology at this time. Patient does have a history of noncompliance with noninvasive therapy and may have had gradual CO2 retention. Body habitus makes chest x-ray less reliable. Patient has responded nicely to BiPAP support and appears to be back to baseline at this time. BiPAP breaks as tolerated, but should continue with all sleep. No indication for ABG at this time. 2. Recent MRSA bacteremia No PJ was obtained secondary to risk profile. Patient reportedly is to have vancomycin around dialysis until April 03, 2019. Will defer to hospitalist, but this can likely be reordered. Patient is not going to receive hemodialysis until Friday per nursing report. Nephrology has been consulted. 3. Metabolic encephalopathy secondary to #1 Resolved. Patient has had previous presentations with similar metabolic encephalopathy associated with acute medical conditions. Clinical suspicion for CO2 retention as the etiology. Appears to be back to baseline with BiPAP use only. 4. Coagulopathy secondary to Coumadin secondary to A. fib No interventions are planned at this time. Patient should have Coumadin held. Will avoid active reversal unless patient has complications. 5. End-stage renal disease on hemodialysis Patient is followed by [facility]. Nursing is reporting that patient had a full hemodialysis session yesterday and there are no indications for acute hemodialysis at this time. Anticipate repeat hemodialysis on Friday. 6. Uncontrolled diabetes mellitus Patient likely to have a high endogenous steroid release given patient's current status. Will cover with sliding scale insulin only. Okay to initiate a diet from my perspective with phosphate binders 7. Morbid obesity/peripheral artery disease/COPD/chronic diastolic CHF/history of osteomyelitis/secondary pulmonary hypertension Complicates care, management, recovery and prognosis. Patient can stay on aerosolized therapies for now. Okay to continue with other baseline medications. Do not believe patient requires aggressive diuresis/volume removal at this time. Code Visit Inpatient E&M: 16543 Subs Hosp L3
[2019-03-07 10:10] LABS: Vancomycin, Random Level 30.4 ug/mL (0.0-15.0)
--- NOTE | 2019-03-07 10:28 | NURSING ---
THIS RN SPOKE TO MARTHA VALERIO AT [facility] AND MARTHA INFORMED THIS RN THAT PT DID NOT NEED PRECERT TO RETURN TO [facility]. DRIP BOX TENDER FRANCISCO NOTIFIED BY THIS RN
--- NOTE | 2019-03-07 10:33 | PHA.PHARE_ITS ---
Consult Pharmacy has been consulted to manage selected antiobiotic: Vancomycin Type of Consult: Follow-up Suspected Infection: Other Prior Doses of Antibiotics Received/Current Regimen: VANCOMYCIN 1500MG IV X1 AT [facility] 03/05/19 Labs: Sodium 136 mmol/L (136-145) 03/07/19 07:19 Potassium 4.1 mmol/L (3.5-5.1) 03/07/19 07:19 Chloride 99 mmol/L (98-107) 03/07/19 07:19 Carbon Dioxide 30.0 mmol/L (21.0-32.0) 03/07/19 07:19 Anion Gap 7 (5-15) 03/07/19 07:19 BUN 55 mg/dL (7-18) H 03/07/19 07:19 Creatinine 6.93 mg/dL (0.70-1.30) H 03/07/19 07:19 Est GFR (MDRD) Af Amer 10 mL/min (>60) L 03/07/19 07:19 Est GFR (MDRD) Non-Af 8 mL/min (>60) L 03/07/19 07:19 BUN/Creatinine Ratio 7.9 RATIO (10-20) L 03/07/19 07:19 Glucose 95 mg/dL (74-106) 03/07/19 07:19 Random Vancomycin 30.4 ug/mL (0.0-15.0) H 03/07/19 09:08 Goal Trough: 15-20 mcg/mL Pharmacy Plan for Drug Dosing: Pharmacy was notified by patient's nurse that pt would be dialyzed today, 03/07/19 instead of 03/08/19 due to the upcoming holiday this week. Per nursing, next dialysis treatment will be 03/09/19. A random level was drawn this morning pre-dialysis, which resulted in a value of 30.4. Since the patient's random level was >20, will NOT give supplemental dose after dialysis. Will get a random level 03/09/19 with AM labs since that will be the next planned HD session. PLAN/RECOMMENDATIONS 1. NO vancomycin dose d/t elevated trough 2. Random vancomycin trough 03/09/19 with AM labs (next planned HD session) 3. Pharmacy Service will continue to monitor and adjust dosing as required.
--- NOTE | 2019-03-07 11:08 | CPS ---
PT WAS PLACED BACK ON BIPAP TO REST AFTER BEING OFF APPROXIMATELY 3 HRS PER PT'S NURSE
--- NOTE | 2019-03-07 11:45 | DIALYSIS ---
Started Hemodialysis however only on for 10min and venous needle started to infiltrate. See Dialysis flowsheet notes. Unable to complete dialysis today d/t access. Dr Rausch aware. Dr Deleon hospitalist rounding and also aware. Report at bedside to Ria.
[2019-03-07] MEDS: Escitalopram Oxalate 10 MG Tablet PO (11:51)
[2019-03-07] MEDS: Midodrine HCl 5 MG Tablet 10 MG PO ×2 (11:51→21:16)
[2019-03-07] MEDS: Pantoprazole Sodium 40 MG Tablet PO (11:51)
[2019-03-07 12:06] LABS: Bedside Glucose 123 mg/dL (70-110)
--- NOTE | 2019-03-07 15:29 | PCM.PROGNOTE ---
Patient Problems: Active and Suspected Problems (Last Reviewed 02/27/19 @ 02:45 by Stew Aldrich MD) Acute hypercapnic respiratory failure (Acute) Transient hypotension (Acute) Subjective: No shortness of breath no chest pain - Physical Exam Vitals/I&O's: Vital Signs Temp Pulse Resp BP Pulse Ox 97.8 F 83 18 92/45 L 96 03/07/19 15:10 03/07/19 15:10 03/07/19 15:10 03/07/19 15:10 03/07/19 15:10 Oxygen Flow Rate (L/min) 2.5 Oxygen Delivery Method Bi-pap Weight: 140.2 kg Body Mass Index (BMI) 48.6 Finger Stick Blood Glucose 155 Orthostatic Vital Signs Start: 03/06/19 06:13 Freq: q24h Status: Active Protocol: Activity Type Activity Date Activity User E-Sign Co-Sign Detail Recorded Client Recorded Date Recorded By Document 03/07/19 03:40 [facility] [id number] 03/07/19 04:23 [facility] 03/07/19 03:40 Orthostatic Vitals Sitting -Blood Pressure (90/60-120/80) 98/35 L -Extremity Use Right Arm -Pulse Rate (60-100) 85 Lying -Blood Pressure (90/60-120/80) 139/92 H -Extremity Use Right Arm -Pulse Rate (60-100) 83 Intake and Output for Last 24 Hours 03/05/19 03/06/19 03/07/19 23:59 23:59 23:59 Intake Total 1625 / 1625 450 / 450 Balance 1625 / 1625 450 / 450 General: Alert HEENT: Atraumatic, Normocephalic Oral: Moist Mucosa, - - Mask in place Lungs: Clear to auscultation, Normal air movement Cardiovascular: Regular rate, Regular Rhythm, Normal S1, Normal S2 Abdomen: Bowel Sounds Present, Soft, Obese Laboratory Results 03/06/19 16:31: POC Glucose 100 03/06/19 21:56: POC Glucose 127 H 03/07/19 04:52: PT 19.0 H, INR 1.6 03/07/19 06:48: POC Glucose 103 03/07/19 07:19: Sodium 136, Potassium 4.1, Chloride 99, Carbon Dioxide 30.0, Anion Gap 7, BUN 55 H, Creatinine 6.93 H, Estim Creat Clear Calc 9.08, Est GFR (MDRD) Af Amer 10 L, Est GFR (MDRD) Non-Af 8 L, BUN/Creatinine Ratio 7.9 L, Glucose 95, Calcium 8.9 03/07/19 09:08: Random Vancomycin 30.4 H 03/07/19 11:44: POC Glucose 123 H Current Medications Acetaminophen (Tylenol) 650 mg PO Q6H PRN PRN PRN Reason: Pain Score 1-10/Temp > 100.7 F Albuterol Sulfate (Ventolin Aerosols) 2.5 mg INHALATION Q2H PRN PRN PRN Reason: Shortness of breath, wheezing Albuterol/Ipratropium (Duoneb) 3 ml INHALATION Q6H.RT [facility] Last Admin: 03/07/19 12:07 Dose: 3 ml Documented by: Calamine/Phenol (Calmoseptine Ointment) 1 applic TOPICAL BID [facility]; Protocol Last Admin: 03/07/19 08:28 Dose: 1 applicatio Documented by: Calcium Acetate ([facility]) [facility] Last Admin: 03/07/19 08:28 Dose: 1,334 mg Documented by: Docusate Sodium (Colace) 200 mg PO BID [facility] Last Admin: 03/07/19 08:28 Dose: Not Given Documented by: Escitalopram Oxalate (Lexapro) 10 mg PO DAILY [facility] Last Admin: 03/07/19 11:51 Dose: 10 mg Documented by: Ferrous Sulfate ([facility]ous Sulfate) [facility] Last Admin: 03/07/19 11:52 Dose: 325 mg Documented by: Ampicillin Sodium/Sulbactam (Sodium 3 gm/ Sodium Chloride) 112 mls @ 150 mls/hr IV Q24@2200 [facility] Last Infusion: 03/06/19 23:17 Dose: Infused Documented by: Sodium Chloride () 250 mls @ 15 mls/hr IV .[id number] PRN PRN Reason: Saline Flush Sodium Chloride () 250 mls @ 15 mls/hr IV .[id number] PRN PRN Reason: Additional IVPB Infusion Insulin Human Lispro (Humalog Kwikpen (Bkc)) 0 unit SC ACHS [facility]; Protocol Last Admin: 03/07/19 11:51 Dose: Not Given Documented by: Midodrine (Proamatine) 10 mg PO BID [facility] Last Admin: 03/07/19 11:51 Dose: 10 mg Documented by: Nystatin (Mycostatin Powder) 1 applic TOPICAL BID [facility]; Protocol Last Admin: 03/07/19 08:28 Dose: 1 applicatio Documented by: Ondansetron HCl (Zofran) 4 mg IV Q8H PRN PRN PRN Reason: NAUSEA/VOMITING Pantoprazole Sodium (Protonix) 40 mg PO DAILY [facility] Last Admin: 03/07/19 11:51 Dose: 40 mg Documented by: Sodium Chloride () 10 - 40 ml IV UD PRN PRN Reason: SALINE FLUSH Last Admin: 03/06/19 05:39 Dose: 10 ml Documented by: Warfarin Sodium (Coumadin (Pbkc)) 2 mg PO DAILY@1700 [facility] Medical Necessity - Tobacco Use Smoking Status: Never smoker Assessment/Plan All Active Problems (Last Reviewed 02/27/19 @ 02:45 by Stew Aldrich MD) Acute hypercapnic respiratory failure (Acute) Transient hypotension (Acute) ESRD CKD MBD Anemia of chronic disease Chronic hypertension Acute on chronic hypercapnic respiratory failure Altered mental status Continue Friday dialysis For dialysis tomorrow. Dialysis was attempted today for short time by the patient avf infiltrated slightly so it was felt best that it will be tried again after ice packs placed on the AV fistula left arm. Continue binders Continue midodrine for blood pressure support 1
--- NOTE | 2019-03-07 16:22 | PN_ITS ---
Patient Problems: Active and Suspected Problems (Last Reviewed 02/27/19 @ 02:45 by Stew Aldrich MD) Acute hypercapnic respiratory failure (Acute) Transient hypotension (Acute) Subjective: Patient was seen and examined today, he appears lethargic at times, I talked briefly with pulmonary medicine about his care, I also talked with nephrology about his care-they were unable to access his dialysis fistula today, they will try again tomorrow. It is possible that the patient may need a tunneled dialysis catheter inserted, nephrology will reevaluate the patient tomorrow. - Physical Exam Vitals/I&O's: Vital Signs Temp Pulse Resp BP Pulse Ox 97.8 F 82 20 H 92/45 L 96 03/07/19 15:10 03/07/19 15:45 03/07/19 15:45 03/07/19 15:10 03/07/19 15:45 Oxygen Flow Rate (L/min) 2.5 Oxygen Delivery Method Bi-pap Weight: 140.2 kg Body Mass Index (BMI) 48.6 Finger Stick Blood Glucose 155 Orthostatic Vital Signs Start: 03/06/19 06:13 Freq: q24h Status: Active Protocol: Activity Type Activity Date Activity User E-Sign Co-Sign Detail Recorded Client Recorded Date Recorded By Document 03/07/19 03:40 [facility] [id number] 03/07/19 04:23 [facility] 03/07/19 03:40 Orthostatic Vitals Sitting -Blood Pressure (90/60-120/80) 98/35 L -Extremity Use Right Arm -Pulse Rate (60-100) 85 Lying -Blood Pressure (90/60-120/80) 139/92 H -Extremity Use Right Arm -Pulse Rate (60-100) 83 Intake and Output for Last 24 Hours 03/05/19 03/06/19 03/07/19 23:59 23:59 23:59 Intake Total 1625 / 1625 450 / 450 Balance 1625 / 1625 450 / 450 General: Oriented x3, Cooperative, No apparent distress, Well developed, Lethargic HEENT: Atraumatic, PERRLA, EOMI, Normocephalic Oral: Moist Mucosa Neck: Supple, Trachea Midline, Thyroid Normal Size and Texture Lungs: Clear to auscultation, Normal air movement, No rhonchi, No wheeze, No rales Cardiovascular: Regular rate, Regular Rhythm, Normal S1, Normal S2, No murmurs, PMI Normal, No rub noted, No Gallop Abdomen: Bowel Sounds Present, Soft, Non Tender, Non-Distended, Obese, No hernias noted Extremities: No clubbing, No cyanosis, Capillary Refill Less than 3 Seconds Skin: No rashes, No breakdown Musculoskeletal: No Tenderness to Palpation of Joints or Extremities Neurological: Cranial nerves II-XII grossly intact, Neuro grossly intact, Sensory exam intact to light touch and pain Psych/Mental Status: Flat Affect Laboratory Results 03/06/19 16:31: POC Glucose 100 03/06/19 21:56: POC Glucose 127 H 03/07/19 04:52: PT 19.0 H, INR 1.6 03/07/19 06:48: POC Glucose 103 03/07/19 07:19: Sodium 136, Potassium 4.1, Chloride 99, Carbon Dioxide 30.0, Anion Gap 7, BUN 55 H, Creatinine 6.93 H, Estim Creat Clear Calc 9.08, Est GFR (MDRD) Af Amer 10 L, Est GFR (MDRD) Non-Af 8 L, BUN/Creatinine Ratio 7.9 L, Glucose 95, Calcium 8.9 03/07/19 09:08: Random Vancomycin 30.4 H 03/07/19 11:44: POC Glucose 123 H Current Medications Acetaminophen (Tylenol) 650 mg PO Q6H PRN PRN PRN Reason: Pain Score 1-10/Temp > 100.7 F Albuterol Sulfate (Ventolin Aerosols) 2.5 mg INHALATION Q2H PRN PRN PRN Reason: Shortness of breath, wheezing Albuterol/Ipratropium (Duoneb) 3 ml INHALATION Q6H.RT [facility] Last Admin: 03/07/19 12:07 Dose: 3 ml Documented by: Calamine/Phenol (Calmoseptine Ointment) 1 applic TOPICAL BID [facility]; Protocol Last Admin: 03/07/19 08:28 Dose: 1 applicatio Documented by: Calcium Acetate ([facility]lo [facility]) [facility] Last Admin: 03/07/19 08:28 Dose: 1,334 mg Documented by: Docusate Sodium (Colace) 200 mg PO BID [facility] Last Admin: 03/07/19 08:28 Dose: Not Given Documented by: Escitalopram Oxalate (Lexapro) 10 mg PO DAILY [facility] Last Admin: 03/07/19 11:51 Dose: 10 mg Documented by: Ferrous Sulfate (Ferrous Sulfate) [facility] Last Admin: 03/07/19 11:52 Dose: 325 mg Documented by: Ampicillin Sodium/Sulbactam (Sodium 3 gm/ Sodium Chloride) 112 mls @ 150 mls/hr IV Q24@2200 [facility] Last Infusion: 03/06/19 23:17 Dose: Infused Documented by: Sodium Chloride () 250 mls @ 15 mls/hr IV .[id number] PRN PRN Reason: Saline Flush Sodium Chloride () 250 mls @ 15 mls/hr IV .[id number] PRN PRN Reason: Additional IVPB Infusion Insulin Human Lispro (Humalog Kwikpen (Bkc)) 0 unit SC ACHS [facility]; Protocol Last Admin: 03/07/19 11:51 Dose: Not Given Documented by: Midodrine (Proamatine) 10 mg PO BID [facility] Last Admin: 03/07/19 11:51 Dose: 10 mg Documented by: Nystatin (Mycostatin Powder) 1 applic TOPICAL BID [facility]; Protocol Last Admin: 03/07/19 08:28 Dose: 1 applicatio Documented by: Ondansetron HCl (Zofran) 4 mg IV Q8H PRN PRN PRN Reason: NAUSEA/VOMITING Pantoprazole Sodium (Protonix) 40 mg PO DAILY [facility] Last Admin: 03/07/19 11:51 Dose: 40 mg Documented by: Sodium Chloride () 10 - 40 ml IV UD PRN PRN Reason: SALINE FLUSH Last Admin: 03/06/19 05:39 Dose: 10 ml Documented by: Warfarin Sodium (Coumadin (Pbkc)) 2 mg PO DAILY@1700 [facility] Medical Necessity - Tobacco Use Smoking Status: Never smoker Assessment/Plan All Active Problems (Last Reviewed 02/27/19 @ 02:45 by Stew Aldrich MD) Acute hypercapnic respiratory failure (Acute) Transient hypotension (Acute) #1 acute on chronic hypercarbic respiratory failure-pulmonary medicine is participating in his care #2 metabolic encephalopathy secondary to #1 #3 MRSA [id number] currently is under treatment for this #4 end-stage renal disease on hemodialysis #5 type 2 diabetes #6 morbid obesity #7 supratherapeutic INR-patient's INR today was 1.6, I have started his warfarin back up at 2 mg daily. #8 paroxysmal atrial fibrillation #9 obstructive sleep apnea #10 essential hypertension Code Visit Inpatient E&M: 95296 Subs Hosp L2
[2019-03-07 16:31] LABS: Bedside Glucose 80 mg/dL (70-110)
--- NOTE | 2019-03-07 17:04 | CPS ---
pt placed on nasal cannula for dinner
[2019-03-07] MEDS: 0.9% Saline Lock 10 ML Syringe IV (21:17)
[2019-03-07 21:25] LABS: Bedside Glucose 102 mg/dL (70-110)
[2019-03-08] VITALS (20 sets, daily range): BP systolic 92–113; BP diastolic 40–48; PULSE 77–89; RESP 12–26; TEMP 36.6–37.1; O2SAT 90–97
[2019-03-08] MEDS: Acetaminophen 325 MG Tablet 650 MG PO ×2 (00:29→09:44)
[2019-03-08] MEDS: Ipratropium/Albuterol Sulfate 3 ML AMPUL.NEB INHALATION ×4 (00:56→19:39)
[2019-03-08 06:10] LABS: International Normalized Ratio 1.6; Prothrombin Time (Protime)PT. 18.8 SECONDS (11.7-14.9)
[2019-03-08 06:26] LABS: Vancomycin, Random Level 29.2 ug/mL (0.0-15.0)
[2019-03-08 06:51] LABS: Bedside Glucose 81 mg/dL (70-110)
--- NOTE | 2019-03-08 08:21 | PN_ITS ---
Patient Problems: Active and Suspected Problems (Last Reviewed 02/27/19 @ 02:45 by Stew Aldrich MD) Acute hypercapnic respiratory failure (Acute) Transient hypotension (Acute) Subjective: The patient was seen and examined at the bedside this morning. Events from the last 24 hours have been reviewed. The patient is currently afebrile, hemodynamically stable and maintaining appropriate oxygen saturations on 2 L/min via nasal cannula. The patient has been tolerant of BiPAP therapy. The patient is currently being prepped for dialysis this morning. He reports feeling tired. He does admit to noncompliance with the use of BiPAP therapy at his senior living facility. Objective: The patient's most recent lab work, culture data and imaging studies have all been personally reviewed. Blood cultures have been unrevealing to date. - Physical Exam Vitals/I&O's: Vital Signs Temp Pulse Resp BP Pulse Ox 97.8 F 80 16 105/40 L 96 03/08/19 08:00 03/08/19 08:00 03/08/19 08:00 03/08/19 08:00 03/08/19 08:03 Oxygen Flow Rate (L/min) 2.5 Oxygen Delivery Method Nasal Cannula Weight: 304 lb 7.334 oz Body Mass Index (BMI) 48.6 Finger Stick Blood Glucose 155 Orthostatic Vital Signs Start: 03/06/19 06:13 Freq: q24h Status: Active Protocol: Activity Type Activity Date Activity User E-Sign Co-Sign Detail Recorded Client Recorded Date Recorded By Document 03/08/19 03:10 [facility] [id number] 03/08/19 03:39 [facility] 03/08/19 03:10 Orthostatic Vitals Sitting -Blood Pressure (90/60-120/80) 106/45 L -Extremity Use Right Arm -Pulse Rate (60-100) 82 Lying -Blood Pressure (90/60-120/80) 101/40 L -Extremity Use Right Arm -Pulse Rate (60-100) 80 Intake and Output for Last 24 Hours 03/06/19 03/07/19 03/08/19 23:59 23:59 23:59 Intake Total 1625 / 1625 1162 / 1162 50 / 50 Balance 1625 / 1625 1162 / 1162 50 / 50 General: Alert, Cooperative, No apparent distress, - - Morbidly obese. HEENT: Atraumatic, PERRLA, Normocephalic Oral: No Gingival or Mucosal Lesions/ Ulcerations Neck: Supple, No Nodes, Trachea Midline Lungs: No rhonchi, No wheeze, No rales, Diminished Cardiovascular: Normal S1, Normal S2, No murmurs, Irregular Rate Abdomen: Bowel Sounds Present, Soft, Non Tender, Obese Extremities: No clubbing, No cyanosis, Edema Skin: No breakdown Musculoskeletal: No Muscle Wasting Lymphatic: No Cervical, Supraclavicular, or Inguinal Adenopathy Neurological: Neuro grossly intact Psych/Mental Status: Flat Affect Labs (Last 48 Hours) 03/06/19 03/06/19 03/06/19 10:56 12:09 16:31 PT INR Specimen Type ART Sample Site R Brachial pH 7.27 L Bicarbonate Actual 31.6 H POC Total CO2 34 Base Excess 5 H O2 Saturation 93 L O2 % 35 ABG pCO2 68.1 H* ABG pO2 78 Hermilo Test NA Respiration Rate 12 O2 Delivery Device Bi / C PAP EPAP 10 IPAP 20 Blood Gas Notified Whom OTHER Blood Gas Notified Time 1207 Sodium Potassium Chloride Carbon Dioxide Anion Gap BUN Creatinine Estim Creat Clear Calc Est GFR (MDRD) Af Amer Est GFR (MDRD) Non-Af BUN/Creatinine Ratio Glucose Calcium Random Vancomycin POC Glucose 173 H 100 03/06/19 03/07/19 03/07/19 21:56 04:52 06:48 PT 19.0 H INR 1.6 Specimen Type Sample Site pH Bicarbonate Actual POC Total CO2 Base Excess O2 Saturation O2 % ABG pCO2 ABG pO2 Hermilo Test Respiration Rate O2 Delivery Device EPAP IPAP Blood Gas Notified Whom Blood Gas Notified Time Sodium Potassium Chloride Carbon Dioxide Anion Gap BUN Creatinine Estim Creat Clear Calc Est GFR (MDRD) Af Amer Est GFR (MDRD) Non-Af BUN/Creatinine Ratio Glucose Calcium Random Vancomycin POC Glucose 127 H 103 03/07/19 03/07/19 03/07/19 07:19 09:08 11:44 PT INR Specimen Type Sample Site pH Bicarbonate Actual POC Total CO2 Base Excess O2 Saturation O2 % ABG pCO2 ABG pO2 Hermilo Test Respiration Rate O2 Delivery Device EPAP IPAP Blood Gas Notified Whom Blood Gas Notified Time Sodium 136 Potassium 4.1 Chloride 99 Carbon Dioxide 30.0 Anion Gap 7 BUN 55 H Creatinine 6.93 H Estim Creat Clear Calc 9.08 Est GFR (MDRD) Af Amer 10 L Est GFR (MDRD) Non-Af 8 L BUN/Creatinine Ratio 7.9 L Glucose 95 Calcium 8.9 Random Vancomycin 30.4 H POC Glucose 123 H 03/07/19 03/07/19 03/08/19 16:26 21:14 05:30 PT INR Specimen Type Sample Site pH Bicarbonate Actual POC Total CO2 Base Excess O2 Saturation O2 % ABG pCO2 ABG pO2 Hermilo Test Respiration Rate O2 Delivery Device EPAP IPAP Blood Gas Notified Whom Blood Gas Notified Time Sodium Potassium Chloride Carbon Dioxide Anion Gap BUN Creatinine Estim Creat Clear Calc Est GFR (MDRD) Af Amer Est GFR (MDRD) Non-Af BUN/Creatinine Ratio Glucose Calcium Random Vancomycin 29.2 H POC Glucose 80 102 03/08/19 03/08/19 05:30 06:45 PT 18.8 H INR 1.6 Specimen Type Sample Site pH Bicarbonate Actual POC Total CO2 Base Excess O2 Saturation O2 % ABG pCO2 ABG pO2 Hermilo Test Respiration Rate O2 Delivery Device EPAP IPAP Blood Gas Notified Whom Blood Gas Notified Time Sodium Potassium Chloride Carbon Dioxide Anion Gap BUN Creatinine Estim Creat Clear Calc Est GFR (MDRD) Af Amer Est GFR (MDRD) Non-Af BUN/Creatinine Ratio Glucose Calcium Random Vancomycin POC Glucose 81 Clinical Impression(s) from Imaging Studies Brain CT 03/06/19 01:26 IMPRESSION: No acute intracranial abnormality. Worsening left mastoid air cell disease consistent with mastoiditis. Increasing left middle ear disease consistent with otitis media. Chronic changes as above. ASPECT 10. Individualized dose optimization techniques were used for this CT. at 0255 Reported and signed by: Ashok Mead MD Electronically Signed: Ashok Mead MD at 2:54 EST Tel , Service support , Chest X-Ray 03/06/19 01:30 IMPRESSION: Congestive heart failure. Electronically Signed: Tomasa Tyler, at 3:25 EST Tel , Service support , Current Medications Acetaminophen (Tylenol) 650 mg PO Q6H PRN PRN PRN Reason: Pain Score 1-10/Temp > 100.7 F Last Admin: 03/08/19 00:29 Dose: 650 mg Documented by: Albuterol Sulfate (Ventolin Aerosols) 2.5 mg INHALATION Q2H PRN PRN PRN Reason: Shortness of breath, wheezing Albuterol/Ipratropium (Duoneb) 3 ml INHALATION Q6H.RT [facility] Last Admin: 03/08/19 06:58 Dose: 3 ml Documented by: Calamine/Phenol (Calmoseptine Ointment) 1 applic TOPICAL BID [facility]; Protocol Last Admin: 03/07/19 21:15 Dose: 1 applicatio Documented by: Calcium Acetate (Phoslo Gel Cap) [facility] Last Admin: 03/07/19 16:56 Dose: 1,334 mg Documented by: Docusate Sodium (Colace) 200 mg PO BID [facility] Last Admin: 03/07/19 21:15 Dose: Not Given Documented by: Escitalopram Oxalate (Lexapro) 10 mg PO DAILY [facility] Last Admin: 03/07/19 11:51 Dose: 10 mg Documented by: Ferrous Sulfate (Ferrous Sulfate) [facility] Last Admin: 03/07/19 11:52 Dose: 325 mg Documented by: Ampicillin Sodium/Sulbactam (Sodium 3 gm/ Sodium Chloride) 112 mls @ 150 mls/hr IV Q24@2200 [facility] Last Infusion: 03/07/19 22:01 Dose: Infused Documented by: Sodium Chloride () 250 mls @ 15 mls/hr IV .[id number] PRN PRN Reason: Saline Flush Sodium Chloride () 250 mls @ 15 mls/hr IV .[id number] PRN PRN Reason: Additional IVPB Infusion Insulin Human Lispro (Humalog Kwikpen (Bkc)) 0 unit SC ACHS [facility]; Protocol Last Admin: 03/08/19 06:47 Dose: Not Given Documented by: Midodrine (Proamatine) 10 mg PO BID [facility] Last Admin: 03/07/19 21:16 Dose: 10 mg Documented by: Nystatin (Mycostatin Powder) 1 applic TOPICAL BID [facility]; Protocol Last Admin: 03/07/19 21:14 Dose: 1 applicatio Documented by: Ondansetron HCl (Zofran) 4 mg IV Q8H PRN PRN PRN Reason: NAUSEA/VOMITING Pantoprazole Sodium (Protonix) 40 mg PO DAILY [facility] Last Admin: 03/07/19 11:51 Dose: 40 mg Documented by: Sodium Chloride () 10 - 40 ml IV UD PRN PRN Reason: SALINE FLUSH Last Admin: 03/07/19 21:17 Dose: 10 ml Documented by: Warfarin Sodium (Coumadin (Pbkc)) 2 mg PO DAILY@1700 [facility] Last Admin: 03/07/19 16:56 Dose: 2 mg Documented by: Medical Necessity - Tobacco Use Smoking Status: Never smoker Assessment/Plan All Active Problems (Last Reviewed 02/27/19 @ 02:45 by Stew Aldrich MD) Acute hypercapnic respiratory failure (Acute) Transient hypotension (Acute) RECOMMENDATIONS: 1. Continue BiPAP therapy with naps and nightly. 2. Maintain oxygen saturations 88 to 92%. 3. Continue baseline vancomycin dosing with hemodialysis. 4. Continue hemodialysis per nephrology recommendations. 5. Continue Midodrine. IMPRESSIONS: 1. Acute on chronic combined respiratory failure Appears to be secondary to noncompliance with the use of noninvasive positive pressure ventilatory support at his senior living facility. The patient has responded favorably once again to the use of BiPAP therapy, which will be continued with naps and nightly. It is strongly recommended that this therapy be continued at his senior living facility. 2. Recent MRSA bacteremia Continue vancomycin per outpatient regimen. 3. Metabolic encephalopathy secondary to #1 Resolved. Clinical suspicion for CO2 retention as the etiology for the patient 's encephalopathy. This has improved with the use of noninvasive positive pressure ventilatory support, which will be continued accordingly. 4. End-stage renal disease on hemodialysis Continue hemodialysis support per nephrology recommendations. 5. Morbid obesity/peripheral artery disease/COPD/chronic diastolic CHF/history of osteomyelitis/secondary pulmonary hypertension Complicates care, management, recovery and prognosis. Continue home medications as indicated. This note was generated with [employer] software. It may contain incorrect words, spelling, and punctuation that were not noted in checking the note before signing. Code Visit Inpatient E&M: 38125 Subs Hosp L2
--- NOTE | 2019-03-08 08:22 | CPS ---
Bipap placed on standby and nasal cannula on pt at 2.5 lpm. Nurse made aware of Bipap on standby at this time. SMI started and pt achieved 250-500 x 5 breaths. will continue to work with pt on SMI.
--- NOTE | 2019-03-08 09:37 | CASEMGMT ---
Patient is from [facility]. faxed updates to [facility]. Yandy JASSO [employer]MM[employer]OLOG[employer] TE[employer]ER
--- NOTE | 2019-03-08 11:34 | CASEMGMT ---
SW met w/pt in room, confirmed his plan is to return to [facility] at discharge. SW asked pt if he completed POA papers, he states he did. SW called [facility], spoke w/Roslyn in admissions. She confirms the POA papers were completed and the papers will be faxed to the hospital. SW will place on the chart once received. REYNA Kirk
[2019-03-08 11:36] LABS: Bedside Glucose 105 mg/dL (70-110)
--- NOTE | 2019-03-08 11:54 | CASEMGMT ---
[facility] faxed over POA form, Chantale Gorman is listed as POA. Pt did initial the LW provision in the POA form. REYNA Kirk
--- NOTE | 2019-03-08 12:14 | PN_ITS ---
Patient Problems: Active and Suspected Problems (Last Reviewed 02/27/19 @ 02:45 by Stew Aldrich MD) Acute hypercapnic respiratory failure (Acute) Transient hypotension (Acute) Reason for Visit: Follow-up metabolic encephalopathy Subjective: Patient is a 69-year-old with multiple comorbidities including recent admission for MRSA bacteremia from an infected hemodialysis catheter who was admitted through the emergency room with significant lethargy patient was found to be hypercapnic with PCO2 of 91 admitted to monitored bed for further management Objective: GENERAL: Cooperative HEENT: Atraumatic; EYES; Anicteric, Normal Conjunctiva NECK; supple, normal thyroid, RESPIRATORY: Diminished to auscultation CARDIOVASCULAR: Regular S1 S2, GI: soft, normoactive bowel sounds, : No Renal angle tenderness; EXTREMITIES: No cyanosis, no clubbing, MUSCULOSKELETAL: no muscle waisting NEURO: no lateralizing signs. SKIN: Bruising left arm PSYCH; significantly flat affect Vitals/I&O's: Vital Signs Temp Pulse Resp BP Pulse Ox 97.8 F 78 20 H 113/48 L 96 03/08/19 08:45 03/08/19 08:45 03/08/19 08:45 03/08/19 08:45 03/08/19 08:03 Oxygen Flow Rate (L/min) 2.5 Oxygen Delivery Method Nasal Cannula Weight: 138.1 kg Body Mass Index (BMI) 48.6 Finger Stick Blood Glucose 155 Orthostatic Vital Signs Start: 03/06/19 06:13 Freq: q24h Status: Active Protocol: Activity Type Activity Date Activity User E-Sign Co-Sign Detail Recorded Client Recorded Date Recorded By Document 03/08/19 03:10 MAB [id number] 03/08/19 03:39 MAB 03/08/19 03:10 Orthostatic Vitals Sitting -Blood Pressure (90/60-120/80) 106/45 L -Extremity Use Right Arm -Pulse Rate (60-100) 82 Lying -Blood Pressure (90/60-120/80) 101/40 L -Extremity Use Right Arm -Pulse Rate (60-100) 80 Intake and Output for Last 24 Hours 03/06/19 03/07/19 03/08/19 23:59 23:59 23:59 Intake Total 1625 / 1625 1162 / 1162 170 / 170 Balance 1625 / 1625 1162 / 1162 170 / 170 Microbiology Past 72 Hours 03/06/19 01:45 Blood Culture (Wb) - Port Blood Culture - Preliminary No growth in 48 hours. 03/06/19 01:25 Blood Culture (Wb) - Right Hand Blood Culture - Preliminary No growth in 48 hours. Laboratory Results 03/07/19 16:26: POC Glucose 80 03/07/19 21:14: POC Glucose 102 03/08/19 05:30: Random Vancomycin 29.2 H 03/08/19 05:30: PT 18.8 H, INR 1.6 03/08/19 06:45: POC Glucose 81 03/08/19 11:30: POC Glucose 105 Current Medications Acetaminophen (Tylenol) 650 mg PO Q6H PRN PRN PRN Reason: Pain Score 1-10/Temp > 100.7 F Last Admin: 03/08/19 09:44 Dose: 650 mg Documented by: Albuterol Sulfate (Ventolin Aerosols) 2.5 mg INHALATION Q2H PRN PRN PRN Reason: Shortness of breath, wheezing Albuterol/Ipratropium (Duoneb) 3 ml INHALATION Q6H.RT [facility] Last Admin: 03/08/19 06:58 Dose: 3 ml Documented by: Calamine/Phenol (Calmoseptine Ointment) 1 applic TOPICAL BID [facility]; Protocol Last Admin: 03/07/19 21:15 Dose: 1 applicatio Documented by: Calcium Acet[facility] ([facility]) [facility] Last Admin: 03/07/19 16:56 Dose: 1,334 mg Documented by: Docusate Sodium (Colace) 200 mg PO BID [facility] Last Admin: 03/07/19 21:15 Dose: Not Given Documented by: Escitalopram Oxalate (Lexapro) 10 mg PO DAILY [facility] Last Admin: 03/07/19 11:51 Dose: 10 mg Documented by: Ferrous Sulfate ([facility] Sulfate) [facility] Last Admin: 03/07/19 11:52 Dose: 325 mg Documented by: Ampicillin Sodium/Sulbactam (Sodium 3 gm/ Sodium Chloride) 112 mls @ 150 mls/hr IV Q24@2200 [facility] Last Infusion: 03/07/19 22:01 Dose: Infused Documented by: Sodium Chloride () 250 mls @ 15 mls/hr IV .[id number] PRN PRN Reason: Saline Flush Sodium Chloride () 250 mls @ 15 mls/hr IV .[id number] PRN PRN Reason: Additional IVPB Infusion Insulin Human Lispro (Humalog Kwikpen (Bkc)) 0 unit SC ACHS [facility]; Protocol Last Admin: 03/08/19 06:47 Dose: Not Given Documented by: Midodrine (Proamatine) 10 mg PO BID [facility] Last Admin: 03/07/19 21:16 Dose: 10 mg Documented by: Nystatin (Mycostatin Powder) 1 applic TOPICAL BID [facility]; Protocol Last Admin: 03/07/19 21:14 Dose: 1 applicatio Documented by: Ondansetron HCl (Zofran) 4 mg IV Q8H PRN PRN PRN Reason: NAUSEA/VOMITING Pantoprazole Sodium (Protonix) 40 mg PO DAILY [facility] Last Admin: 03/07/19 11:51 Dose: 40 mg Documented by: Sodium Chloride () 10 - 40 ml IV UD PRN PRN Reason: SALINE FLUSH Last Admin: 03/07/19 21:17 Dose: 10 ml Documented by: Warfarin Sodium (Coumadin (Pbkc)) 2 mg PO DAILY@1700 [facility] Last Admin: 03/07/19 16:56 Dose: 2 mg Documented by: STROKE Vital Signs/Narrative: Vital Signs Temp Pulse Resp BP 03/08/19 08:45 97.8 F 78 20 H 113/48 L Medical Necessity - Tobacco Use Smoking Status: Never smoker Assessment/Plan All Active Problems (Last Reviewed 02/27/19 @ 02:45 by Stew Aldrich MD) Acute hypercapnic respiratory failure (Acute) Transient hypotension (Acute) Patient is a 69-year-old with multiple comorbidities including recent admission for MRSA bacteremia from an infected hemodialysis catheter who was admitted through the emergency room with significant lethargy patient was found to be hypercapnic with PCO2 of 91 admitted to monitored bed for further management 1. Acute hypercapnic respiratory failure ?Patient managed with noninvasive ventilation with consultation placed to pulmonary medicine. 2. Acute metabolic encephalopathy ~Secondary to patient hypercapnia, improving 3. Recent admission for MRSA bacteremia ~from an infected dialysis catheter patient is on vancomycin discontinued 4. End-stage renal disease ?On hemodialysis Wednesdays and Fridays. Patient currently being dialyzed through an AV fistula 5. Diabetes mellitus type 2 With complications including diabetic nephropathy (end-stage renal disease and). Patient is currently on Accu-Cheks before meals and at bedtime with sliding scale coverage 6. Chronic paroxysmal A. fib ?Patient in sinus rhythm on Coumadin INR was elevated on admission 6.0, Coumadin held resumed with subsequent monitoring of INR 7. Diabetic neuropathy ?Patient is on gabapentin with patient being lethargic on admission gabapentin was held 8. Chronic congestive heart failure with preserved ejection fraction ?Currently compensated 9. Pulmonary hypertension ?Patient is on supplemental oxygen 10. Morbid obesity with BMI of 49 Weight loss advised 11. Obstructive sleep apnea ?On CPAP at night 12. GERD ?On PPI 13. DVT prophylaxis ?patient is on Coumadin Active Medications Acetaminophen (Tylenol) 650 mg PO Q6H PRN PRN PRN Reason: Pain Score 1-10/Temp > 100.7 F Last Admin: 03/08/19 09:44 Dose: 650 mg Documented by: Albuterol Sulfate (Ventolin Aerosols) 2.5 mg INHALATION Q2H PRN PRN PRN Reason: Shortness of breath, wheezing Albuterol/Ipratropium (Duoneb) 3 ml INHALATION Q6H.RT [facility] Last Admin: 03/08/19 13:05 Dose: 3 ml Documented by: Calamine/Phenol (Calmoseptine Ointment) 1 applic TOPICAL BID [facility]; Protocol Last Admin: 03/07/19 21:15 Dose: 1 applicatio Documented by: Calcium Acetate (Phoslo Gel Cap) [facility] Last Admin: 03/07/19 16:56 Dose: 1,334 mg Documented by: Docusate Sodium (Colace) 200 mg PO BID [facility] Last Admin: 03/07/19 21:15 Dose: Not Given Documented by: Escitalopram Oxalate (Lexapro) 10 mg PO DAILY [facility] Last Admin: 03/07/19 11:51 Dose: 10 mg Documented by: Ferrous Sulfate (Ferrous Sulfate) [facility] Last Admin: 03/07/19 11:52 Dose: 325 mg Documented by: Ampicillin Sodium/Sulbactam (Sodium 3 gm/ Sodium Chloride) 112 mls @ 150 mls/hr IV Q24@2200 [facility] Last Infusion: 03/07/19 22:01 Dose: Infused Documented by: Sodium Chloride () 250 mls @ 15 mls/hr IV .[id number] PRN PRN Reason: Saline Flush Sodium Chloride () 250 mls @ 15 mls/hr IV .[id number] PRN PRN Reason: Additional IVPB Infusion Insulin Human Lispro (Humalog Kwikpen (Bkc)) 0 unit SC ACHS [facility]; Protocol Last Admin: 03/08/19 06:47 Dose: Not Given Documented by: Midodrine (Proamatine) 10 mg PO BID [facility] Last Admin: 03/07/19 21:16 Dose: 10 mg Documented by: Nystatin (Mycostatin Powder) 1 applic TOPICAL BID [facility]; Protocol Last Admin: 03/07/19 21:14 Dose: 1 applicatio Documented by: Ondansetron HCl (Zofran) 4 mg IV Q8H PRN PRN PRN Reason: NAUSEA/VOMITING Pantoprazole Sodium (Protonix) 40 mg PO DAILY [facility] Last Admin: 03/07/19 11:51 Dose: 40 mg Documented by: Sodium Chloride () 10 - 40 ml IV UD PRN PRN Reason: SALINE FLUSH Last Admin: 03/07/19 21:17 Dose: 10 ml Documented by: Warfarin Sodium (Coumadin (Pbkc)) 2 mg PO DAILY@1700 [facility] Last Admin: 03/07/19 16:56 Dose: 2 mg Documented by: Code Visit Inpatient E&M: [id number] Subs Hosp L2
--- NOTE | 2019-03-08 13:01 | DIALYSIS ---
HEmodialysis x 4 hours with 3K bath; Tolerated well. Removed = -1500; LUAVF needles pulled; stasis complete; DSD applied; +bruit +thrill. Report given to IMAN Ramirez.
--- NOTE | 2019-03-08 13:05 | PHA.PHARE_ITS ---
Consult Pharmacy has been consulted to manage selected antiobiotic: Vancomycin Type of Consult: Follow-up Suspected Infection: Bacteremia, Other Prior Doses of Antibiotics Received/Current Regimen: LAST DOSE GIVEN AT CUSTODIAL - 1500MG WITH EACH DIALYSIS 03-05-19 Labs: Sodium 136 mmol/L (136-145) 03/07/19 07:19 Potassium 4.1 mmol/L (3.5-5.1) 03/07/19 07:19 Chloride 99 mmol/L (98-107) 03/07/19 07:19 Carbon Dioxide 30.0 mmol/L (21.0-32.0) 03/07/19 07:19 Anion Gap 7 (5-15) 03/07/19 07:19 BUN 55 mg/dL (7-18) H 03/07/19 07:19 Creatinine 6.93 mg/dL (0.70-1.30) H 03/07/19 07:19 Est GFR (MDRD) Af Amer 10 mL/min (>60) L 03/07/19 07:19 Est GFR (MDRD) Non-Af 8 mL/min (>60) L 03/07/19 07:19 BUN/Creatinine Ratio 7.9 RATIO (10-20) L 03/07/19 07:19 Glucose 95 mg/dL (74-106) 03/07/19 07:19 Random Vancomycin 29.2 ug/mL (0.0-15.0) H 03/08/19 05:30 Microbiology: Microbiology 03/06/19 01:45 Blood Culture (Wb) - Port Blood Culture - Preliminary No growth in 48 hours. 03/06/19 01:25 Blood Culture (Wb) - Right Hand Blood Culture - Preliminary No growth in 48 hours. Goal Trough: 15-20 mcg/mL Pharmacy Plan for Drug Dosing: Since the patient's random level was >20, will NOT give supplemental dose after dialysis. Will get a random level with AM labs day of next planned HD session. Per nursing, it is not clear yet when the next HD session will be. RN will call pharmacy to let us know when the next session will be so we can schedule a trough. 1. Will not give a dose after dialysis today due to high trough 2. Patient will have another trough drawn before next HD session Pharmacy Service will continue to monitor and adjust dosing as required.
[2019-03-08] MEDS: Ferrous Sulfate 325 MG Tablet PO (15:16)
[2019-03-08] MEDS: Escitalopram Oxalate 10 MG Tablet PO (15:17)
[2019-03-08] MEDS: Calcium Acetate 667 MG Capsule 1334 MG PO ×2 (15:17→18:59)
[2019-03-08] MEDS: Pantoprazole Sodium 40 MG Tablet PO (15:17)
[2019-03-08] MEDS: Menthol/Lanolin/Calamine/Znox 113 GM Tube 1 APPLIC TOPICAL ×2 (15:18→22:09)
[2019-03-08] MEDS: Nystatin Powder 15gm Bottle 1 APPLIC TOPICAL ×2 (15:18→22:09)
--- NOTE | 2019-03-08 15:23 | CPS ---
Bipap off per nurse and nasal cannula 2.5 lpm placed on pt.
--- NOTE | 2019-03-08 15:44 | PN_ITS ---
Patient Problems: Active and Suspected Problems (Last Reviewed 02/27/19 @ 02:45 by Stew Aldrich MD) Acute hypercapnic respiratory failure (Acute) Transient hypotension (Acute) Subjective: no sob no cp - Physical Exam Vitals/I&O's: Vital Signs Temp Pulse Resp BP Pulse Ox 97.8 F 85 20 H 92/43 L 96 03/08/19 13:34 03/08/19 13:34 03/08/19 13:34 03/08/19 13:34 03/08/19 13:34 Oxygen Flow Rate (L/min) 2.5 Oxygen Delivery Method Nasal Cannula Weight: 138.1 kg Body Mass Index (BMI) 48.6 Finger Stick Blood Glucose 155 Orthostatic Vital Signs Start: 03/06/19 06:13 Freq: q24h Status: Active Protocol: Activity Type Activity Date Activity User E-Sign Co-Sign Detail Recorded Client Recorded Date Recorded By Document 03/08/19 03:10 MAB [id number] 03/08/19 03:39 MAB 03/08/19 03:10 Orthostatic Vitals Sitting -Blood Pressure (90/60-120/80) 106/45 L -Extremity Use Right Arm -Pulse Rate (60-100) 82 Lying -Blood Pressure (90/60-120/80) 101/40 L -Extremity Use Right Arm -Pulse Rate (60-100) 80 Intake and Output for Last 24 Hours 03/06/19 03/07/19 03/08/19 23:59 23:59 23:59 Intake Total 1625 / 1625 1162 / 1162 170 / 170 Output Total 1500 / 1500 Balance 1625 / 1625 1162 / 1162 -1330 / -1330 General: Alert, Oriented x3, Cooperative HEENT: Atraumatic, PERRLA, EOMI, Normocephalic Neck: Supple, No JVD, Negative Carotid Bruits Lungs: Clear to auscultation, Normal air movement Cardiovascular: Regular rate, No murmurs Abdomen: Bowel Sounds Present, Soft, Non Tender, Obese Extremities: No edema, Capillary Refill Less than 3 Seconds Skin: No rashes, No breakdown Musculoskeletal: No Tenderness to Palpation of Joints or Extremities Neurological: Cranial nerves II-XII grossly intact Psych/Mental Status: Normal Affect, Appropriate Microbiology Past 72 Hours 03/08/19 13:35 Stool C. difficile DNA Amplification - Final 03/06/19 01:45 Blood Culture (Wb) - Port Blood Culture - Preliminary No growth in 48 hours. 03/06/19 01:25 Blood Culture (Wb) - Right Hand Blood Culture - Preliminary No growth in 48 hours. Laboratory Results 03/07/19 16:26: POC Glucose 80 03/07/19 21:14: POC Glucose 102 03/08/19 05:30: Random Vancomycin 29.2 H 03/08/19 05:30: PT 18.8 H, INR 1.6 03/08/19 06:45: POC Glucose 81 03/08/19 11:30: POC Glucose 105 Current Medications Acetaminophen (Tylenol) 650 mg PO Q6H PRN PRN PRN Reason: Pain Score 1-10/Temp > 100.7 F Last Admin: 03/08/19 09:44 Dose: 650 mg Documented by: Albuterol Sulfate (Ventolin Aerosols) 2.5 mg INHALATION Q2H PRN PRN PRN Reason: Shortness of breath, wheezing Albuterol/Ipratropium (Duoneb) 3 ml INHALATION Q6H.RT [facility] Last Admin: 03/08/19 13:05 Dose: 3 ml Documented by: Calamine/Phenol (Calmoseptine Ointment) 1 applic TOPICAL BID [facility]; Protocol Last Admin: 03/08/19 15:18 Dose: 1 applicatio Documented by: Calcium Acetate ([facility]lo [facility]) [facility] Last Admin: 03/08/19 15:17 Dose: 1,334 mg Documented by: Docusate Sodium (Colace) 200 mg PO BID [facility] Last Admin: 03/08/19 15:14 Dose: Not Given Documented by: Escitalopram Oxalate (Lexapro) 10 mg PO DAILY [facility] Last Admin: 03/08/19 15:17 Dose: 10 mg Documented by: Ferrous Sulfate (Ferrous Sulfate) [facility] Last Admin: 03/08/19 15:32 Dose: Not Given Documented by: Ampicillin Sodium/Sulbactam (Sodium 3 gm/ Sodium Chloride) 112 mls @ 150 mls/hr IV Q24@2200 [facility] Last Infusion: 03/07/19 22:01 Dose: Infused Documented by: Sodium Chloride () 250 mls @ 15 mls/hr IV .[id number] PRN PRN Reason: Saline Flush Sodium Chloride () 250 mls @ 15 mls/hr IV .[id number] PRN PRN Reason: Additional IVPB Infusion Insulin Human Lispro (Humalog Kwikpen (Bkc)) 0 unit SC ACHS [facility]; Protocol Last Admin: 03/08/19 15:21 Dose: Not Given Documented by: Midodrine (Proamatine) 10 mg PO BID [facility] Last Admin: 03/08/19 15:06 Dose: Not Given Documented by: Nystatin (Mycostatin Powder) 1 applic TOPICAL BID [facility]; Protocol Last Admin: 03/08/19 15:18 Dose: 1 applicatio Documented by: Ondansetron HCl (Zofran) 4 mg IV Q8H PRN PRN PRN Reason: NAUSEA/VOMITING Pantoprazole Sodium (Protonix) 40 mg PO DAILY [facility] Last Admin: 03/08/19 15:17 Dose: 40 mg Documented by: Sodium Chloride () 10 - 40 ml IV UD PRN PRN Reason: SALINE FLUSH Last Admin: 03/07/19 21:17 Dose: 10 ml Documented by: Warfarin Sodium (Coumadin (Pbkc)) 2 mg PO DAILY@1700 [facility] Last Admin: 03/07/19 16:56 Dose: 2 mg Documented by: Medical Necessity - Tobacco Use Smoking Status: Never smoker Assessment/Plan All Active Problems (Last Reviewed 02/27/19 @ 02:45 by Stew Aldrich MD) Acute hypercapnic respiratory failure (Acute) Transient hypotension (Acute) ESRD CKD MBD Anemia of chronic disease Chronic hypertension Acute on chronic hypercapnic respiratory failure Altered mental status Continue Friday dialysis For dialysis tomorrow too considering holiday schedule and the fact Friday HD unit is closed. Had HD today 1.5 liters off no issues with access today Continue binders Continue midodrine for blood pressure support 1
[2019-03-08 17:20] LABS: Bedside Glucose 85 mg/dL (70-110)
[2019-03-08] MEDS: Midodrine HCl 5 MG Tablet 10 MG PO (22:22)
[2019-03-08 22:25] LABS: Bedside Glucose 109 mg/dL (70-110)
[2019-03-09] VITALS (11 sets, daily range): BP systolic 93–126; BP diastolic 40–49; PULSE 74–98; RESP 12–20; TEMP 35.9–36.6; O2SAT 92–98
[2019-03-09] MEDS: Ipratropium/Albuterol Sulfate 3 ML AMPUL.NEB INHALATION ×2 (01:19→06:52)
[2019-03-09 05:56] LABS: Absolute Neutrophil Count 2.5 X10^3/uL (2.0-7.7); Basophil# 0.05 X10^3/uL; Basophil% 1.2 % (0-1); Eosinophil# 0.22 X10^3/uL; Eosinophils% 5.3 % (0-5); Hematocrit 38.1 % (40-54); Hemoglobin 11.6 g/dL (13.0-16.5); Lymphocyte % 19.4 % (19-41); Mean Corp Hgb Conc 30.4 g/dL (32-36); Mean Corpuscular Hgb 29.7 pg (27.0-32.0); Mean Corpuscular Volume 97.7 fL (80-94); Mean Platelet Vol. 11.4 fl (6.2-12.0); Monocyte% 12.1 % (0-10); NRBC Flagged by Analyzer 0 % (0-5); Neutrophil # 2.53 X10^3/uL (2.7-7.7); Neutrophil % 61.5 % (47-70); Platelet Count 120 K/mm3 (150-450); RBC Distribution Width SD 60.1 fl (35.1-43.9); White Blood Count 4.1 K/mm3 (4.4-11.0)
[2019-03-09 06:07] LABS: Anion Gap 7 (5-15); BUN 43 mg/dL (7-18); BUN/Creat Ratio 6.7 RATIO (10-20); Calcium,Total 9.1 mg/dL (8.5-10.1); Chloride 98 mmol/L (98-107); Creatinine, Serum 6.44 mg/dL (0.70-1.30); EST Glomerular Filtration Rate 9 mL/min (>60); Est Glom Filt Rate - Afr Amer 11 mL/min (>60); Estimated Creatinine Clearance 9.77 ml/min; Glucose 86 mg/dL (74-106); Magnesium 2.4 mg/dL (1.6-2.6); Potassium 3.7 mmol/L (3.5-5.1); Sodium Level 134 mmol/L (136-145)
[2019-03-09 06:08] LABS: International Normalized Ratio 1.8; Prothrombin Time (Protime)PT. 21.2 SECONDS (11.7-14.9)
[2019-03-09 06:36] LABS: Bedside Glucose 72 mg/dL (70-110)
--- NOTE | 2019-03-09 08:00 | PCM.PN.PUL ---
Subjective: The patient was seen and examined at the bedside this morning. Events from the last 24 hours have been reviewed. The patient is currently afebrile, hemodynamically stable and maintaining appropriate oxygen saturations on his baseline supplemental oxygen requirement. The patient tolerated hemodialysis yesterday with 1.5 L of fluid removed. The patient has been tolerant of BiPAP utilization with sleep. The patient is being prepped once again for dialysis this morning. Objective: The patient's most recent lab work, culture data and imaging studies have all been personally reviewed. Blood cultures have been unrevealing to date. - Physical Exam Vitals/I&O's: Vital Signs Temp Pulse Resp BP Pulse Ox 97.9 F 77 18 120/40 L 96 03/09/19 05:15 03/09/19 06:58 03/09/19 05:15 03/09/19 05:15 03/09/19 05:15 Oxygen Flow Rate (L/min) 2.5 Oxygen Delivery Method Bi-pap Weight: 308 lb 6.827 oz Body Mass Index (BMI) 48.6 Finger Stick Blood Glucose 155 Orthostatic Vital Signs Start: 03/06/19 06:13 Freq: q24h Status: Active Protocol: Activity Type Activity Date Activity User E-Sign Co-Sign Detail Recorded Client Recorded Date Recorded By Document 03/08/19 03:10 MAB [id number] 03/08/19 03:39 MAB 03/08/19 03:10 Orthostatic Vitals Sitting -Blood Pressure (90/60-120/80) 106/45 L -Extremity Use Right Arm -Pulse Rate (60-100) 82 Lying -Blood Pressure (90/60-120/80) 101/40 L -Extremity Use Right Arm -Pulse Rate (60-100) 80 Intake and Output for Last 24 Hours 03/07/19 03/08/19 03/09/19 23:59 23:59 23:59 Intake Total 1162 / 1162 642 / 642 120 / 120 Output Total 1500 / 1500 Balance 1162 / 1162 -858 / -858 120 / 120 General: Alert, Cooperative, No apparent distress HEENT: Atraumatic, PERRLA, Normocephalic Oral: No Gingival or Mucosal Lesions/ Ulcerations Neck: Supple, No Nodes, Trachea Midline Lungs: No rhonchi, No wheeze, No rales, Diminished Cardiovascular: Normal S1, Normal S2, No murmurs, Irregular Rate Abdomen: Bowel Sounds Present, Soft, Non Tender, Obese Extremities: No clubbing, No cyanosis, Edema Skin: - - No significant change from previous Musculoskeletal: No Tenderness to Palpation of Joints or Extremities Lymphatic: No Cervical, Supraclavicular, or Inguinal Adenopathy Neurological: Neuro grossly intact Psych/Mental Status: Flat Affect Labs (Last 48 Hours) 03/07/19 03/07/19 03/07/19 07:19 09:08 11:44 WBC RBC Hgb Hct MCV MCH MCHC RDW Std Deviation RDW Coeff of Dix[place] Plt Count MPV Immature Gran % (Auto) Neut % (Auto) Lymph % (Auto) [place] % (Auto) Eos % (Auto) Baso % (Auto) Absolute Neuts (auto) Absolute Lymphs (auto) Nucleated RBC % PT INR Sodium 136 Potassium 4.1 Chloride 99 Carbon Dioxide 30.0 Anion Gap 7 BUN 55 H Creatinine 6.93 H Estim Creat Clear Calc 9.08 Est GFR (MDRD) Af Amer 10 L Est GFR (MDRD) Non-Af 8 L BUN/Creatinine Ratio 7.9 L Glucose 95 Calcium 8.9 Magnesium Random Vancomycin 30.4 H POC Glucose 123 H 03/07/19 03/07/19 03/08/19 16:26 21:14 05:30 WBC RBC Hgb Hct MCV MCH MCHC RDW Std Deviation RDW Coeff of [place] Plt Count MPV Immature Gran % (Auto) Neut % (Auto) Lymph % (Auto) [place] % (Auto) Eos % (Auto) Baso % (Auto) Absolute Neuts (auto) Absolute Lymphs (auto) Nucleated RBC % PT INR Sodium Potassium Chloride Carbon Dioxide Anion Gap BUN Creatinine Estim Creat Clear Calc Est GFR (MDRD) Af Amer Est GFR (MDRD) Non-Af BUN/Creatinine Ratio Glucose Calcium Magnesium Random Vancomycin 29.2 H POC Glucose 80 102 03/08/19 03/08/19 03/08/19 05:30 06:45 11:30 WBC RBC Hgb Hct MCV MCH MCHC RDW Std Deviation RDW Coeff of [place] Plt Count MPV Immature Gran % (Auto) Neut % (Auto) Lymph % (Auto) [place] % (Auto) Eos % (Auto) Baso % (Auto) Absolute Neuts (auto) Absolute Lymphs (auto) Nucleated RBC % PT 18.8 H INR 1.6 Sodium Potassium Chloride Carbon Dioxide Anion Gap BUN Creatinine Estim Creat Clear Calc Est GFR (MDRD) Af Amer Est GFR (MDRD) Non-Af BUN/Creatinine Ratio Glucose Calcium Magnesium Random Vancomycin POC Glucose 81 105 03/08/19 03/08/19 03/09/19 17:13 22:18 05:38 WBC 4.1 L RBC 3.90 L Hgb 11.6 L Hct 38.1 L MCV 97.7 H MCH 29.7 MCHC 30.4 L RDW Std Deviation 60.1 H RDW Coeff of Dixie 17.0 H Plt Count 120 L MPV 11.4 Immature Gran % (Auto) 0.500 Neut % (Auto) 61.5 Lymph % (Auto) 19.4 [place] % (Auto) 12.1 H Eos % (Auto) 5.3 H Baso % (Auto) 1.2 H Absolute Neuts (auto) 2.5 Absolute Lymphs (auto) 0.80 L Nucleated RBC % 0 PT INR Sodium Potassium Chloride Carbon Dioxide Anion Gap BUN Creatinine Estim Creat Clear Calc Est GFR (MDRD) Af Amer Est GFR (MDRD) Non-Af BUN/Creatinine Ratio Glucose Calcium Magnesium Random Vancomycin POC Glucose 85 109 03/09/19 03/09/19 03/09/19 05:38 05:38 06:31 WBC RBC Hgb Hct MCV MCH MCHC RDW Std Deviation RDW Coeff of [place] Plt Count MPV Immature Gran % (Auto) Neut % (Auto) Lymph % (Auto) [place] % (Auto) Eos % (Auto) Baso % (Auto) Absolute Neuts (auto) Absolute Lymphs (auto) Nucleated RBC % PT 21.2 H INR 1.8 Sodium 134 L Potassium 3.7 Chloride 98 Carbon Dioxide 29.0 Anion Gap 7 BUN 43 H Creatinine 6.44 H Estim Creat Clear Calc 9.77 Est GFR (MDRD) Af Amer 11 L Est GFR (MDRD) Non-Af 9 L BUN/Creatinine Ratio 6.7 L Glucose 86 Calcium 9.1 Magnesium 2.4 Random Vancomycin POC Glucose 72 Microbiology 03/08/19 13:35 Stool C. difficile DNA Amplification - Final 03/06/19 01:45 Blood Culture (Wb) - Port Blood Culture - Preliminary No growth in 48 hours. 12/28/19 01:25 Blood Culture (Wb) - Right Hand Blood Culture - Preliminary No growth in 48 hours. Clinical Impression(s) from Imaging Studies Brain CT 03/06/19 01:26 IMPRESSION: No acute intracranial abnormality. Worsening left mastoid air cell disease consistent with mastoiditis. Increasing left middle ear disease consistent with otitis media. Chronic changes as above. ASPECT 10. Individualized dose optimization techniques were used for this CT. at 0255 Reported and signed by: Ashok Mead MD Electronically Signed: Ashok Mead MD at 2:54 EST Tel , Service support , Chest X-Ray 03/06/19 01:30 IMPRESSION: Congestive heart failure. Electronically Signed: Tomasa Tyler, at 3:25 EST Tel , Service support , Current Medications Acetaminophen (Tylenol) 650 mg PO Q6H PRN PRN PRN Reason: Pain Score 1-10/Temp > 100.7 F Last Admin: 03/08/19 09:44 Dose: 650 mg Documented by: Albuterol Sulfate (Ventolin Aerosols) 2.5 mg INHALATION Q2H PRN PRN PRN Reason: Shortness of breath, wheezing Albuterol/Ipratropium (Duoneb) 3 ml INHALATION Q6H.RT [facility] Last Admin: 03/09/19 06:52 Dose: 3 ml Documented by: Calamine/Phenol (Calmoseptine Ointment) 1 applic TOPICAL BID [facility]; Protocol Last Admin: 03/08/19 22:09 Dose: 1 applicatio Documented by: Calcium Acetate ([facility]) [facility] Last Admin: 03/08/19 18:59 Dose: 1,334 mg Documented by: Docusate Sodium (Colace) 200 mg PO BID [facility] Last Admin: 03/08/19 21:57 Dose: Not Given Documented by: Escitalopram Oxalate (Lexapro) 10 mg PO DAILY [facility] Last Admin: 03/08/19 15:17 Dose: 10 mg Documented by: Ferrous Sulfate (Ferrous Sulfate) 325 mg PO BIDCM [facility] Last Admin: 03/08/19 15:32 Dose: Not Given Documented by: Ampicillin Sodium/Sulbactam (Sodium 3 gm/ Sodium Chloride) 112 mls @ 150 mls/hr IV Q24@2200 [facility] Last Infusion: 03/08/19 22:59 Dose: Infused Documented by: Sodium Chloride () 250 mls @ 15 mls/hr IV .[id number] PRN PRN Reason: Saline Flush Sodium Chloride () 250 mls @ 15 mls/hr IV .[id number] PRN PRN Reason: Additional IVPB Infusion Insulin Human Lispro (Humalog Kwikpen (Bkc)) 0 unit SC ACHS [facility]; Protocol Last Admin: 03/09/19 06:31 Dose: Not Given Documented by: Midodrine (Proamatine) 10 mg PO BID [facility] Last Admin: 03/08/19 22:22 Dose: 10 mg Documented by: Nystatin (Mycostatin Powder) 1 applic TOPICAL BID [facility]; Protocol Last Admin: 03/08/19 22:09 Dose: 1 applicatio Documented by: Ondansetron HCl (Zofran) 4 mg IV Q8H PRN PRN PRN Reason: NAUSEA/VOMITING Pantoprazole Sodium (Protonix) 40 mg PO DAILY [facility] Last Admin: 03/08/19 15:17 Dose: 40 mg Documented by: Sodium Chloride () 10 - 40 ml IV UD PRN PRN Reason: SALINE FLUSH Last Admin: 03/07/19 21:17 Dose: 10 ml Documented by: Warfarin Sodium (Coumadin (Pbkc)) 2 mg PO DAILY@1700 [facility] Last Admin: 03/08/19 18:59 Dose: 2 mg Documented by: Medical Necessity - Tobacco Use Smoking Status: Never smoker Assessment/Plan All Active Problems (Last Reviewed 02/27/19 @ 02:45 by Stew Aldrich MD) Acute hypercapnic respiratory failure (Acute) Transient hypotension (Acute) RECOMMENDATIONS: 1. Continue BiPAP therapy with naps and nightly. This needs to be continued upon discharge from the hospital and return to alf facility. 2. Maintain oxygen saturations 88 to 92%. 3. Continue baseline vancomycin dosing with hemodialysis. 4. Continue hemodialysis per nephrology recommendations. 5. Continue Midodrine. IMPRESSIONS: 1. Acute on chronic combined respiratory failure Appears to be secondary to noncompliance with the use of noninvasive positive pressure ventilatory support at his alf facility. The patient has responded favorably once again to the use of BiPAP therapy, which will be continued with naps and nightly. It is strongly recommended that this therapy be continued at his alf facility. 2. Recent MRSA bacteremia Continue vancomycin per outpatient regimen. 3. Metabolic encephalopathy secondary to #1 Resolved. Clinical suspicion for CO2 retention as the etiology for the patient's encephalopathy. This has improved with the use of noninvasive positive pressure ventilatory support, which will be continued accordingly. 4. End-stage renal disease on hemodialysis Continue hemodialysis support per nephrology recommendations. 5. Morbid obesity/peripheral artery disease/COPD/chronic diastolic CHF/history of osteomyelitis/secondary pulmonary hypertension Complicates care, management, recovery and prognosis. Continue home medications as indicated. This note was generated with [employer]UGG[employer] dictation software. It may contain incorrect words, spelling, and punctuation that were not noted in checking the note before signing. Code Visit Inpatient E&M: 92428 Subs Hosp L2
[2019-03-09] MEDS: Midodrine HCl 5 MG Tablet 10 MG PO (08:47)
--- NOTE | 2019-03-09 09:48 | TREXTCAR_ITS ---
- Diet 03/06/19 04:47 Diet: Cardiac/Low Cholesterol Food consistency:: Mechanical Soft/Ground Liquid Consistency:: [place] Thick Diet Comments: SUPERVISED Diet: Renal: 60 gm protein Food consistency:: Mechanical Soft/Ground Liquid Consistency:: [place] Thick Diet Comments: SUPERVISED - Routine Orders/Code Status Routine Lab Work: INR - On 03/11/2019 [facility] Wound(s) Inner buttocks Wound Type: Skin Tear - Therapies Physical Therapy: Eval and Treat Occupational Therapy: Eval and Treat - Allergies/Procedures Done in Hospital Allergies/Adverse Reactions: Allergies mirtazapine [From Remeron] Allergy (Verified 03/06/19 01:07) forgetful, doesn't remember anything Sulfa (Sulfonamide Antibiotics) Allergy (Verified 03/06/19 01:07) bleeding from kidneys aspirin Adverse Reaction (Verified 03/06/19 01:07) Nausea oxycodone HCl [From Percodan] Adverse Reaction (Verified 03/06/19 01:07) Nausea oxycodone terephthalate [From Percodan] Adverse Reaction (Verified 03/06/19 01:07) Nausea - Type of Care/Length of Stay Estimated LOS: Convalescent Care Less Than 30 days Type of Care Needed: Skilled Rehab Potential: Fair Prognosis: Fair - Additional Orders/Day of Discharge Day of Discharge: 03/09/19 - Dietary and Speech Recommendations Dietitian Recommendations/Changes: Recommend diet change to cardiac, low sodium diet w/ fluid restriction as indicated. Protein restriction is not warranted given ESRD treated w/ diaylsis. Will switch ONS from Glucerna to Nepro. [employer] consult - Follow Up Care Primary Care Physician: Heraclio Whitehead MD [Primary Care Provider] - Please follow up with your Primary Care Physician in: in 1-2 weeks Please Follow Up With: Ashish Rausch MD When: for dialysis
--- NOTE | 2019-03-09 09:52 | PCM.DC.SUM ---
Discharge Date and Diagnosis - Problem List Patient Problems: Active and Suspected Problems (Last Reviewed 02/27/19 @ 02:45 by Stew Aldrich MD) Acute hypercapnic respiratory failure (Acute) Transient hypotension (Acute) Date of Admission: 03/06/19 Date of Discharge: 03/09/19 - Primary Discharge Diagnosis Active and Suspected Problems (Last Reviewed 02/27/19 @ 02:45 by Stew Aldrich MD) Acute hypercapnic respiratory failure (Acute) Transient hypotension (Acute) - Secondary Discharge Diagnosis Chronic Problems (Last Reviewed 02/27/19 @ 02:45 by Stew Aldrich MD) ESRD (end stage renal disease) on dialysis (Chronic) BPH (benign prostatic hyperplasia) (Chronic) Depression (Chronic) Hyperlipidemia (Chronic) IgA nephropathy (Chronic) Chronic gout (Chronic) Diabetes mellitus, type 2 (Chronic) DIET CONTROLLED Diastolic Dysfunction EF 60% (Chronic) KATHY on CPAP (Chronic) 16 CM WATER COPD (chronic obstructive pulmonary disease) (Chronic) With chronic respiratory failure On 3 L nasal cannula Left kidney mass (Chronic) Super obesity (Chronic) bmi 64 Chronic low back pain (Chronic) Pulmonary hypertension (Chronic) Paroxysmal atrial fibrillation (Chronic) Anemia of chronic renal failure (Chronic) Falls frequently (Chronic) Hospital Course and Treatment Imaging Results: Clinical Impression(s) from Imaging Studies Brain CT 03/06/19 01:26 IMPRESSION: No acute intracranial abnormality. Worsening left mastoid air cell disease consistent with mastoiditis. Increasing left middle ear disease consistent with otitis media. Chronic changes as above. ASPECT 10. Individualized dose optimization techniques were used for this CT. at 0255 Reported and signed by: Ashok Mead MD Electronically Signed: Ashok Mead MD at 2:54 EST Tel , Service support , Chest X-Ray 03/06/19 01:30 IMPRESSION: Congestive heart failure. Electronically Signed: Tomasa Tyler, at 3:25 EST Tel , Service support , Operations: None Summary of Care Provided: Patient is a 69-year-old with multiple comorbidities including recent admission for MRSA bacteremia from an infected hemodialysis catheter who was admitted through the emergency room with significant lethargy patient was found to be hypercapnic with PCO2 of 91 admitted to monitored bed for further management 1. Acute hypercapnic respiratory failure ?Patient managed with noninvasive ventilation with consultation placed to pulmonary medicine. 2. Acute metabolic encephalopathy ~Secondary to patient hypercapnia, improving 3. Recent admission for MRSA bacteremia ~from an infected dialysis catheter patient is on vancomycin discontinued 4. Acute mastoiditis based on CAT scan findings Patient was on Unasyn discharge on Rocephin 2 g every 12 hours for 8 more days. 5. End-stage renal disease ?On hemodialysis Wednesdays and Fridays. Patient currently being dialyzed through an AV fistula 6. Chronic paroxysmal A. fib ?Patient in sinus rhythm on Coumadin INR was elevated on admission 6.0, Coumadin held resumed with subsequent monitoring of INR 7. Diabetic neuropathy ?Patient is on gabapentin with patient being lethargic on admission gabapentin was held 8. Chronic congestive heart failure with preserved ejection fraction ?Currently compensated 9. Pulmonary hypertension ?Patient is on supplemental oxygen 10. Morbid obesity with BMI of 49 Weight loss advised 11. Obstructive sleep apnea ?On CPAP at night 12. GERD ?On PPI 13. DVT prophylaxis ?patient is on Coumadin 14. Diabetes mellitus type 2 With complications including diabetic nephropathy (end-stage renal disease and). Patient is currently on Accu-Cheks before meals and at bedtime with sliding scale coverage Patient Problems: Active and Suspected Problems (Last Reviewed 02/27/19 @ 02:45 by Stew Aldrich MD) Acute hypercapnic respiratory failure (Acute) Transient hypotension (Acute) Objective: GENERAL: Cooperative HEENT: Atraumatic; EYES; Anicteric, Normal Conjunctiva NECK; supple, normal thyroid, RESPIRATORY: Diminished to auscultation CARDIOVASCULAR: Regular S1 S2, GI: soft, normoactive bowel sounds, : No Renal angle tenderness; EXTREMITIES: No cyanosis, no clubbing, MUSCULOSKELETAL: no muscle waisting NEURO: no lateralizing signs. SKIN: Bruising left arm PSYCH; significantly flat affect - Physical Exam Vitals/I&O's: Vital Signs Temp Pulse Resp BP Pulse Ox 97.9 F 77 15 120/40 L 95 03/09/19 05:15 03/09/19 06:58 03/09/19 06:52 03/09/19 05:15 03/09/19 06:52 Oxygen Flow Rate (L/min) 2.5 Oxygen Delivery Method Nasal Cannula Weight: 139.9 kg Body Mass Index (BMI) 48.6 Finger Stick Blood Glucose 155 Orthostatic Vital Signs Start: 03/06/19 06:13 Freq: q24h Status: Active Protocol: Activity Type Activity Date Activity User E-Sign Co-Sign Detail Recorded Client Recorded Date Recorded By Document 03/08/19 03:10 MAB [id number] 03/08/19 03:39 MAB 03/08/19 03:10 Orthostatic Vitals Sitting -Blood Pressure (90/60-120/80) 106/45 L -Extremity Use Right Arm -Pulse Rate (60-100) 82 Lying -Blood Pressure (90/60-120/80) 101/40 L -Extremity Use Right Arm -Pulse Rate (60-100) 80 Intake and Output for Last 24 Hours 03/07/19 03/08/19 03/09/19 23:59 23:59 23:59 Intake Total 1162 / 1162 642 / 642 120 / 120 Output Total 1500 / 1500 Balance 1162 / 1162 -858 / -858 120 / 120 Microbiology Past 72 Hours 03/08/19 13:35 Stool C. difficile DNA Amplification - Final 03/06/19 01:45 Blood Culture (Wb) - Port Blood Culture - Preliminary No growth in 48 hours. 03/06/19 01:25 Blood Culture (Wb) - Right Hand Blood Culture - Preliminary No growth in 48 hours. Laboratory Results 03/08/19 11:30: POC Glucose 105 03/08/19 17:13: POC Glucose 85 03/08/19 22:18: POC Glucose 109 03/09/19 05:38: WBC 4.1 L, RBC 3.90 L, Hgb 11.6 L, Hct 38.1 L, MCV 97.7 H, MCH 29.7, MCHC 30.4 L, RDW Std Deviation 60.1 H, RDW Coeff of Dixie 17.0 H, Plt Count 120 L, MPV 11.4, Immature Gran % (Auto) 0.500, Neut % (Auto) 61.5, Lymph % (Auto) 19.4, [place] % (Auto) 12.1 H, Eos % (Auto) 5.3 H, Baso % (Auto) 1.2 H, Absolute Neuts (auto) 2.5, Absolute Lymphs (auto) 0.80 L, Nucleated RBC % 0 03/09/19 05:38: PT 21.2 H, INR 1.8 03/09/19 05:38: Sodium 134 L, Potassium 3.7, Chloride 98, Carbon Dioxide 29.0, Anion Gap 7, BUN 43 H, Creatinine 6.44 H, Estim Creat Clear Calc 9.77, Est GFR (MDRD) Af Amer 11 L, Est GFR (MDRD) Non-Af 9 L, BUN/Creatinine Ratio 6.7 L, Glucose 86, Calcium 9.1, Magnesium 2.4 03/09/19 06:31: POC Glucose 72 Current Medications Acetaminophen (Tylenol) 650 mg PO Q6H PRN PRN PRN Reason: Pain Score 1-10/Temp > 100.7 F Last Admin: 03/08/19 09:44 Dose: 650 mg Documented by: Albuterol Sulfate (Ventolin Aerosols) 2.5 mg INHALATION Q2H PRN PRN PRN Reason: Shortness of breath, wheezing Albuterol/Ipratropium (Duoneb) 3 ml INHALATION Q6H.RT [facility] Last Admin: 03/09/19 06:52 Dose: 3 ml Documented by: Calamine/Phenol (Calmoseptine Ointment) 1 applic TOPICAL BID [facility]; Protocol Last Admin: 03/08/19 22:09 Dose: 1 applicatio Documented by: Calcium Acetate ([facility]oslo Gel Cap) [facility] Last Admin: 03/08/19 18:59 Dose: 1,334 mg Documented by: Docusate Sodium (Colace) 200 mg PO BID [facility] Last Admin: 03/08/19 21:57 Dose: Not Given Documented by: Escitalopram Oxalate (Lexapro) 10 mg PO DAILY [facility] Last Admin: 03/08/19 15:17 Dose: 10 mg Documented by: Ferrous Sulfate (Ferrous Sulfate) [facility] Last Admin: 03/08/19 15:32 Dose: Not Given Documented by: Ampicillin Sodium/Sulbactam (Sodium 3 gm/ Sodium Chloride) 112 mls @ 150 mls/hr IV Q24@2200 [facility] Last Infusion: 03/08/19 22:59 Dose: Infused Documented by: Sodium Chloride () 250 mls @ 15 mls/hr IV .[id number] PRN PRN Reason: Saline Flush Sodium Chloride () 250 mls @ 15 mls/hr IV .[id number] PRN PRN Reason: Additional IVPB Infusion Insulin Human Lispro (Humalog Kwikpen (Bkc)) 0 unit SC ACHS [facility]; Protocol Last Admin: 03/09/19 06:31 Dose: Not Given Documented by: Midodrine (Proamatine) 10 mg PO BID [facility] Last Admin: 03/09/19 08:47 Dose: 10 mg Documented by: Nystatin (Mycostatin Powder) 1 applic TOPICAL BID [facility]; Protocol Last Admin: 03/08/19 22:09 Dose: 1 applicatio Documented by: Ondansetron HCl (Zofran) 4 mg IV Q8H PRN PRN PRN Reason: NAUSEA/VOMITING Pantoprazole Sodium (Protonix) 40 mg PO DAILY [facility] Last Admin: 03/08/19 15:17 Dose: 40 mg Documented by: Sodium Chloride () 10 - 40 ml IV UD PRN PRN Reason: SALINE FLUSH Last Admin: 03/07/19 21:17 Dose: 10 ml Documented by: Warfarin Sodium (Coumadin (Pbkc)) 2 mg PO DAILY@1700 [facility] Last Admin: 03/08/19 18:59 Dose: 2 mg Documented by: Discharge Diet: Renal Diet Home Medications: Medications to take at Discharge Calcium Acetate [Phoslo Gel Cap] 1,334 mg PO BID 11/08/16 ferrous sulfate 325 mg (65 mg iron) tablet,delayed release 325 mg PO BID tab 05/12/18 umeclidinium 62.5 mcg/actuation blister powder for inhalation 1 inh INHALATION LUNCH 05/12/18 B Complex W-C No.20/Folic Acid [Virt-Caps Softgel] 1 mg PO DAILY@1200 08/18/18 Docusate Sodium [Colace] 200 mg PO BID 08/18/18 Escitalopram Oxalate [Lexapro] 10 mg PO DAILY 08/18/18 Fluticasone/Vilanterol [Breo Ellipta 100-25 Mcg INH] 1 ea IH DAILY 08/18/18 Pantoprazole Sodium [Protonix] 40 mg PO DAILY 08/18/18 Midodrine HCl 10 mg PO BID #60 tab 01/08/19 Acetaminophen [Tylenol] 650 mg PO Q4H PRN PRN 02/18/19 Ascorbic Acid 500 mg PO DAILY 02/18/19 Ipratropium/Albuterol Sulfate [Duoneb] 3 ml INHALATION Q6H.RT 02/18/19 Multivit,Tx with Iron,Minerals [Thera-M] 1 tab PO DAILY 02/18/19 Ondansetron HCl 8 mg PO BID PRN PRN 02/18/19 Vancomycin IV Pharmacy to Dose 1,500 ea IV UD 38 Days #15 ea 02/25/19 Nystatin Powder [Mycostatin Powder] 1 applic TOPICAL TID bottle 03/02/19 Argin/Glut/Cahmb/Collag/Mv-Min [Vimal Packet] 1 pack PO BID 03/06/19 Ceftriaxone [Rocephin] 2 gm IV Q12 #20 bag 03/09/19 Warfarin [Coumadin] 2 mg PO DAILY@1700 tab 03/09/19 Following Prescrptions Were Given to Patient: Ceftriaxone [Rocephin] 2 gm IV Q12 #20 bag Prescription Printed Primary Care Physician: Heraclio Whitehead MD [Primary Care Provider] - Please follow up with your Primary Care Physician in: in 1-2 weeks Please Follow Up With: Ashish Rausch MD When: for dialysis Disposition: Halfway facility Minutes spent on discharge:: 45 Patient Condition:: Stable Medical Necessity - Tobacco Use Smoking Status: Never smoker Meaningful Use Info Meaningful Use Diagnoses (Choose all that apply): None applicable Code Visit Inpatient E&M: 82897 Disch Hosp
--- NOTE | 2019-03-09 10:08 | CASEMGMT ---
Patient is ready for discharge to [facility]. CLARA faxed orders to [facility] CLARA also had to call [employer] to get it approved. The confirmation number is [id number]. CLARA notified RN, department secretary, and left message for Kirstie at [facility]. Patient was sleeping. CLARA also called [facility] and his next dialysis will be Friday. Plan: d/c back to [facility] under skilled level [facility] care[facility] Yandy JASSO MSW
--- NOTE | 2019-03-09 11:40 | CASEMGMT ---
RN spoke with patient about Hospice and patient is open to talking with them. SW called Kirstie at [facility] and let her know this information. She said they spoke with him about it last time he came in and he declined. She said they can talk with him again when he returns. Plan: d/c back to [facility] under skilled level of care. Yandy JASSO MSW
[2019-03-09 12:41] LABS: Bedside Glucose 104 mg/dL (70-110)
--- NOTE | 2019-03-09 13:55 | DIALYSIS ---
Tx discontinued 1 hour and 12 minutes early per pt request. DENI Ramirez was present. Pt is Alert and oriented x 3. Pt is requesting to discontinue HD permanently. Dr. Rausch was notified. UF of 340ml. Ran on 3k bath. Used left arm fistula. [place] removed post tx and pressure applied to sites for 10 minutes. Fresh gauze and tape applied. Report was given to Deni Ramirez.
--- NOTE | 2019-03-09 13:59 | NURSING ---
report called to Yazan at [facility]
== END 2019-03-09 14:39 | disposition skilled nursing facility (03) | DRG 189 ==
LOC: ED 04:17 → PCU 05:10
PROVIDERS: Internal Medicine; Internal Medicine Critical Care Medicine; Admitting Provider Hospitalist; Emergency Provider Emergency Medicine; Family Provider Internal Medicine; PCP Internal Medicine; Visit Provider Internal Medicine
DX: J96.22 Acute and chronic respiratory failure with hypercapnia (principal); N18.6 End stage renal disease; G93.41 Metabolic encephalopathy; Z68.42 Body mass index [BMI] 45.0-49.9, adult; N02.8 Recurrent and persistent hematuria with other morphologic changes; H70.009 Acute mastoiditis without complications, unspecified ear; I50.32 Chronic diastolic (congestive) heart failure; I13.2 Hypertensive heart and chronic kidney disease with heart failure and with stage 5 chronic kidney disease, or end stage renal disease; Z68.44 Body mass index [BMI] 60.0-69.9, adult; Z99.81 Dependence on supplemental oxygen; Z99.2 Dependence on renal dialysis; E66.01 Morbid (severe) obesity due to excess calories; N40.0 Benign prostatic hyperplasia without lower urinary tract symptoms; E78.5 Hyperlipidemia, unspecified; F32.9 Major depressive disorder, single episode, unspecified; J44.9 Chronic obstructive pulmonary disease, unspecified; M1A.9XX0 Chronic gout, unspecified, without tophus (tophi); Z66 Do not resuscitate; Z86.14 Personal history of Methicillin resistant Staphylococcus aureus infection; I48.0 Paroxysmal atrial fibrillation; G47.33 Obstructive sleep apnea (adult) (pediatric); D63.1 Anemia in chronic kidney disease; R29.6 Repeated falls; G89.29 Other chronic pain; M54.5 Low back pain; E11.40 Type 2 diabetes mellitus with diabetic neuropathy, unspecified; K21.9 Gastro-esophageal reflux disease without esophagitis; E11.22 Type 2 diabetes mellitus with diabetic chronic kidney disease; Z79.01 Long term (current) use of anticoagulants; I27.20 Pulmonary hypertension, unspecified; I95.9 Hypotension, unspecified; R00.1 Bradycardia, unspecified
CPT/HCPCS: 36415; 36600; 70450; 71045; 80048; 80053; 80202; 82803; 82962; 83605; 83735; 84484; 85025; 85610; 85730; 87040; 87493; 90937; 92526; 92610; 93005; 94002; 94003; 94640; 97110; 97162; 97165; 99251; 99285; J7030; J7040; A4216; G0257; G0463; J0295; J2310; J3490